=== PATIENT | female | born 1975 | race Caucasian/White ===

== ENCOUNTER 2024-10-14 01:17 | Inpatient (IN) | payer OTHER, SELFPAY ==
--- OUTSIDE RECORDS SUMMARY | 2024-10-08 17:29 | XMS_ITS | Encounter Summary ---
Author Organization [facility] Address [address] [place] [address] Phone Care Team Providers Care Game Master Name Role Phone Manda Dorantes MD, MPH Primary Care Provider [phone] Reason for Visit * Reason Comments Anxiety * Auth/Cert (Routine) Specialty Diagnoses / Procedures Referred By Contdiego t Referred To Contact Diagnoses Paranoia Referral ID Status Reason Start Date Expiration Date Visits Re quested Visits Authorized [id number] 1 1 Encounter Details Date Type Department Care Team (Late st Contact Info) Description 10/08/2024 5:29 PM EDT - 10/13/2024 11:00 PM EDT Hospital Encounter [facility] Emergency Dept [address] [place] [address] Lambert Mesa MD [address] [place] [address] [id number] [place] [address] [email or web address] Mcpherson MD [address] [facility], [id number] [place] [address] [email or web address] Ruthy Miller MD, MPH [address] [place] [address] [address] [place] [address] [email or web address] Zo Burden MD, MPH [address] [facility] [id number] [place] [address] [email or web address] Allison Castillo MD [address] [place] [address] [email or web address] Brendan Leonard MD [address] [place] [address] [email or web address] Nati Boss MD, PhD [address] [facility] [id number] [place] [phone] [email or web address] [email or web address] Emma Devries MD [address] [facility] [address] [place] [phone] [email or web address] Brendan Dc MD, RENATO [address] [facility] [address] [place] [address] [email or web address] Ban Zapata MD [address] [facility] [address] [place] [address] [email or web address] Akin Maher MD, MPH [address] [facility] [id number][address]1 [place] [address] [email or web address] Pavithra Saunders MD [address] [facility] [address] [place] [phone] [email or web address] Macie Mendez MD [address] [place] [address] [email or web address] Holly Montoya MD, PhD [address] [facility] [place], [place] [id number] [email or web address] Vern Rivas MD [address] [facility] [address] [place] [address] [email or web address] Discharge Disposition: Psychiatric Hospital Social History Tobacco Use Types Packs/Day Years Used Date Smoking Tobacco: Former Cigarettes 0.5 7 2 008 - 2014 Smokeless Tobacco: Former Quit: 2006 Alcohol Use Standard Drinks/Week Comments Yes 0 (1 standard drink = 0.6 oz pur e alcohol) rarely Child or Family Care Answer Date Record ed Do you have problems with on e of the following making it difficult for you to work, study, or receive health care? No 08/31/2023 Education Answer Date Recorded Are you interested in help w ith more adult education (for example, completing high school, GED, job training, learning the [place] language, technical skills, or developing parenting skills)? Yes 08/31/2023 Are you concerned about learning? Not on file 08/31/2023 Yes 08/31/2023 No 08/31/2023 Food Answer Date Recorded Within the past 6 months we worried whether our food would run out before we got money to buy more. Unable to assess 025 Within the past 6 months the food we bought just didn't last and we didn't have enough money to get more. Unable to assess 10/09/2024 Residential Stability Answer Date Recor ded What is your housing situation today? Unable to assess 10/09/2024 How many times have you moved in the past 12 wed ths? Unable to assess 10/09/2024 Paying for Meds Answer Date Recorded Do you have trouble paying for medicines? Unable to assess 10/09/2024 Paying Utility Bills Answer Date Record ed Do you have trouble paying y our heating or electricity bill? Unable to assess 10/09/2024 Transportation Answer Date Recorded Has the lack of transportati on kept you from medical appointments or from getting medications? Unable to assess 10/09/2024 Digital Access Answer Date Recorded No 10/09/2024 No 10/09/2024 Do you have reliable internet access at home? Un able to assess 10/09/2024 Do you have a device (e.g., phone, tablet, computer) with a working camera? Unable to assess 10/09/2024 Intimate Partner Violence Answer Date R ecorded Are you denied basic needs s uch as food, clothing, or medical care? Deferred 10/08/2024 In the past 12 months have y ou been in a relationship with a person who hurts, threatens, or tries to control you? Deferred 10/08/2024 Are you denied basic needs s uch as food, clothing, or medical care? Deferred 10/08/2024 In the past 12 months have y ou been in a relationship with a person who hurts, threatens, or tries to control you? Deferred 10/08/2024 Comments No Sex and Gender Information Value Date Recorded Sex Assigned at Female 12/23/2023 7:45 PM EST Legal Sex Female 5:22 PM EST Gender Identity Female 12/23/2023 7:45 PM EST Sexual Orientation Straight 12/23/2023 7: 45 PM EST documented as of this encounter Last Filed Vital Signs Vital Sign Reading Time Taken Comments Blood Pressure 109/67 10/13/2024 10:23 PM EDT Pulse 76 10/13/2024 10:23 PM EDT Temperature 36.4 C (97.6 F) 10/13/2024 10:23 PM EDT Respiratory Rate 16 10/13/2024 10:23 PM EDT Oxygen Saturation 100% 10/13/2024 10:23 PM EDT Inhaled Oxygen Concentration - - Weight - - Height - - Body Mass Index - - documented in this encounter Functional Status * Calculated C-SSRS Risk Score (Lifetime/Recent) Answer Date of Assessment Author No Risk Indicated 10/08/2024 5:20 PM EDT O'Emily brooks, Chata Alonso RN * [place] Suicide Severity Rating Scale (Screener/Recent Self-Report) Question Answer Date of Assessment Author 1. Wish to be (Past 1 Month) No 10/08/2024 5:20 PM EDT Nicki Fraire RN 2. Non-Specific Active Suicidal Thoughts (Past 1 Month) No 10/08/2024 5:20 PM EDT Nicki Fraire RN 6. Suicidal Behavior (Lifetime) No 10/08/2024 5:20 PM EDT Nicki Fraire RN documented as of this encounter Medications at Time of Discharge blood sugar diagnostic Strp strips 1 each by Miscellaneous route as needed. blood-glucose sensor (DEXCOM G7 SENSOR) Nancy 1 kit by Miscellaneous route as directed. Change every 10 days 9 each 3 02/17/2024 FLUoxetine (PROZAC) 20 MG capsule Take 1 capsule (20 mg total) by mouth daily. 60 capsule 1 10/05/2024 02/03/20 25 FLUoxetine (PROZAC) 40 MG capsule Take 1 capsule (40 mg total) by mouth daily. 90 capsule 1 10/05/2024 glucagon (GVOKE) 1 mg/0.2 mL subcutaneous auto-injectorIndi cations:Type 1 diabetes mellitus with other specified complication Inject 0.2 mL (1 mg total) under the skin once as needed for low blood sugar (provide value). 0.2 mL 2 02/04/2024 insulin aspart U-100 (NOVOLOG) 100 unit/mL injection vial Inject under the skin as needed. 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 90 tablet 3 05/17/2024 05/18/19 26 LORazepam (ATIVAN) 0.5 MG tablet Take 1 tablet (0.5 mg total) by mouth daily as needed for anxiety. 30 tablet 1 09/25/2024 12/25/19 25 REPATHA SYRINGE 140 mg/mL subcutaneous syringe INJECT 1ML UNDER THE SKIN EVERY 14 DAYS 6 mL 3 02/11/2024 semaglutide, weight loss, (WEGOVY) 1 mg/0.5 mL subcutaneous injectionIndicati ons:History of Joao-en-Y gastric bypass,History of obesity Inject 0.5 mL (1 mg total) under the skin once a week. Start after completing 4 weeks of Wegovy 0.5 mg 2 mL 5 04/21/2024 subcutaneous insulin pump (T:SLIM X2 CONTROL-IQ MISC) by Miscellaneous route. traZODone (DESYREL) 50 MG tabletIndications :insomnia associated with depression Take 1 tablet (50 mg total) by mouth nightly at bedtime. Indications: insomnia associated with depression 30 tablet 1 10/05/2024 documented as of this encounter Progress Notes Only the most recent of 5 notes is shown. * Rebeka Estrada, LYE PEEL OPERATOR - 10/13/2024 2:32 PM EDT Images from the original note were not included. ? [facility] Inpatient Diabetes Follow-up Note Subjective Pt feeling a little confused during rounding. Reports feeling hungrier lately (possibly due to being off Wegovy) but is not sure if she's eating more. , Adrian, at bedside. Objective Last vitals 36.1 ??C (97 ??F) P 87 BP 104/59 RR 18 SpO2 96 % FiO2 Physical Exam Constitutional: Comments: Laying in bed Pulmonary: Effort: Pulmonary effort is normal. Blood sugars Recent Labs Lab Units 10/13/24 1320 10/13/24 1311 10/13/24 1242 10/13/24 0858 10/13/24 0425 10/13/24 0153 10/12/24 2138 10/12/24 2118 10/12/24 2115 10/12/24 1837 10/09/24 1100 10/09/24 1013 10/09/24 0607 10/09/24 0517 10/08/24 2012 10/08/24 1756 GLUCOSE (POC) mg/dL 369* -- 68* 68* 149* 207* 137* 60* 60* 131* 131* < > -- < > -- < > -- GLUCOSE mg/dL -- 377* -- -- -- -- -- -- -- -- -- 352* -- 517* -- 125* < > = values in this interval not displayed. Assessment/Plan Endocrine Type 1 diabetes mellitus with other specified complication Assessment & Plan The Inpatient Diabetes Management Service has been consulted to assist with achieving glycemic control with hx of T1DM. Of note, she had an suicide attempt with 300 units of insulin during her previous [facility] admission in Jan 2024. 49 y.o. female originally presented to the ED with pmhx of T1DM on insulin pump, hypothyroidism, weight loss s/p gastric bypass, STEMI 2018 2 MILKA placed, ischemic cardiomyopathy EF 58%, MDD, MARTELL, andfactitious disorder during most recent inpatient psych admission who presents with gradual mental decline and feeling that she is not in control . Admitted for paranoia as she is uncertain if thingsare coincidences or what is reality. Her and her endorse that this is the similar trajectory that led to her previous psychiatric admission that led to a suicide attempt psych, HI, EtOH, drugs, auditory or visual loose shins. Denied physical symptoms. For her T1DM, she is followed at the [facility] with last visit with Dr. Timbo Calle on 10/07/24 as telemedicine visit. Home Rx: Wegovy 1 mg weekly - well tolerated Tandem insulin pump with Control IQ Basal 0.8 units/hr ISF: 60 CR: 10 BG target: 120 Pt's blood sugars low to 68 mg/dl this morning despite Lantus being lowered to 12 units last night.Elevated to 369 mg/dl after breakfast today possibly due to BG being taken right after eating. As she has overall been trending tightly, will plan to decrease her Lantus to 10 units and Lispro to 3 units with meals. Will titrate up if blood sugars start to go higher. Reviewed with pt and she is amenable to changes. We will continue to follow. Recommendations: Decrease Lantus to 10 units qhs, if NPO give 8 units. Please do not hold/delay basal insulin in pt with type 1 diabetes. Decrease Lispro to 3 units with meals. Nutritional insulin. Please allow patient to choose lower insulin dose if she is eating less (based on carbs content of the meal) HOLD if NPO. Lispro custom insulin sliding scale (0-6 units) starting when glucose at 180 mg/dL TID AC. DO NOT use at bedtime - glucose 180-240- 2 units, Glucose 241- 300- 3 units, Glucose 301- 350- 4 units, Glucose 351- 400-5 units, Glucose > 400- 6 units and page RC FSBG QID- AC, HS, and if any signs or symptoms of hypoglycemia KENNEDI Mendes For questions after 5pm or on weekends please contact Inpatient Diabetes Attending ([phone]) documented in this encounter Consult Notes Only the most recent of 2 notes is shown. * Kasia Perez CNP - 10/09/2024 9:16 AM EDTAssociated Order(s): IP CONSULT TO ENDOCRINOLOGY Images from the original note were not included. ? [facility] Inpatient Diabetes Consult Note Name: ??Ramses Rowe Location: ED [facility] Physician Requesting Consult: Service: APS; Attending: Ruthy Neal MD, MPH Endocrine Team: Nurse Practitioner: Kasia Perez NP Consult Date: ??10/09/2024 Time: 9:17 AM Reason for Consult: The Inpatient Diabetes Management Service has been consulted to assist with achieving glycemic control with hx of T1DM 49 y.o. female originally presented to the ED with pmhx of T1DM on insulin pump, hypothyroidism, weight loss s/p gastric bypass, STEMI 2018 2 MILKA placed, ischemic cardiomyopathy EF 58%, MDD, MARTELL, andfactitious disorder during most recent inpatient psych admission who presents with gradual mental decline and feeling that she is not in control . Admitted for paranoia as she is uncertain if thingsare coincidences or what is reality. Her and her endorse that this is the similar trajectory that led to her previous psychiatric admission that led to a suicide attempt psych, HI, EtOH, drugs, auditory or visual loose shins. Denied physical symptoms. For her T1DM, she is followed at the [facility] with last visit with Dr. Timbo Calle on 10/07/24 as telemedicine visit. Home Rx: Wegovy 1 mg weekly - well tolerated Tandem insulin pump with Control IQ Basal 0.8 units/hr ISF: 60 CR: 10 BG target: 120 Our team provided preliminary diabetes care plan yesterday afternoon to transition off insulin pumpfor psychiatric admission with recommendations as outlined below: Glargine 18 units every 24 hrs, overlap with pump for 2 hrs Lispro CHO ratio 1:15g Lispro SS correction:1:100 AC 150-250 +1 unit 251-351 +2 units Pt said that she feels a little nausea but tolerates food okay without v/d. She had a chicken sandwich last night and this morning breakfast consisted of banana , egg and bran muffin. ?Reviewed insulin pump data ?? Review Of Systems:? ?Endocrine: Denies polyuria, polydipsia, claudication, tingling/numbness of the hands and feet, blurry vision, frothy urine. ?General: Denies weight changes, fatigue, fevers, chills, or night sweats. CV: Denies chest pain or palpitations Pulm: Denies cough, SOB GI: Denies abdominal pain, v/d. + nausea : Denies dysuria MSK: Denies joint pains Neuro: Denies focal weakness, syncope Past Medical/Surgical History: Past Medical History: Diagnosis Date Cataract Diabetes mellitus History of myocardial infarct at age less than 60 years 07/15/2017 Hypothyroidism ?? Allergies:?? Allergen Reactions Penicillins Other (See Comments) rash; Selegiline Other (See Comments) skin irritation.; Sulfa (Sulfonamide Antibiotics) Other (See Comments) Rash; Sulfamethoxazole-Trimethoprim Other (See Comments) rash; Allergy entered as BACTRIM ?? Outpatient medications: No current facility-administered medications on file prior to encounter. Current Outpatient Medications on File Prior to Encounter Medication Sig Dispense Refill Last Dispense blood sugar diagnostic Strp strips 1 each by Miscellaneous route as needed. Unknown (patient-reported) blood-glucose sensor (MedaNextCOM G7 SENSOR) Nancy 1 kit by Miscellaneous route as directed. Change every10 days 9 each 3 Unknown (outside pharmacy) FLUoxetine (PROZAC) 20 MG capsule Take 1 capsule (20 mg total) by mouth daily. 60 capsule 1 Unknown(outside pharmacy) FLUoxetine (PROZAC) 40 MG capsule Take 1 capsule (40 mg total) by mouth daily. 90 capsule 1 Unknown(outside pharmacy) gabapentin (NEURONTIN) 100 MG capsule Take 1 capsule (100 mg total) by mouth 2 (two) times a day asneeded (Anxiety, Sleep). Can take 2 to 3 tabs if needed for a dose of 200-300 mg 30 capsule 2 Unknown (outside pharmacy) glucagon (GVOKE) 1 mg/0.2 mL subcutaneous auto-injector Inject 0.2 mL (1 mg total) under the skin once as needed for low blood sugar (provide value). 0.2 mL 2 Unknown (outside pharmacy) insulin aspart U-100 (NOVOLOG) 100 unit/mL injection vial Inject under the skin as needed. INJECT UP TO 150 UNITS DAILY OR DIRECTED VIA INSULIN PUMP Unknown (patient-reported) levothyroxine (SYNTHROID, LEVOTHROID) 150 MCG tablet Take 1 tablet (150 mcg total) by mouth every morning. 90 tablet 3 Unknown (outside pharmacy) LORazepam (ATIVAN) 0.5 MG tablet Take 1 tablet (0.5 mg total) by mouth daily as needed for anxiety.30 tablet 1 Unknown (outside pharmacy) REPATHA SYRINGE 140 mg/mL subcutaneous syringe INJECT 1ML UNDER THE SKIN EVERY 14 DAYS 6 mL 3 Unknown (outside pharmacy) semaglutide, weight loss, (WEGOVY) 1 mg/0.5 mL subcutaneous injection Inject 0.5 mL (1 mg total) under the skin once a week. Start after completing 4 weeks of Wegovy 0.5 mg 2 mL 5 Unknown (outside pharmacy) subcutaneous insulin pump (T:SLIM X2 CONTROL-IQ MISC) by Miscellaneous route. Unknown (patient-reported) traZODone (DESYREL) 50 MG tablet Take 1 tablet (50 mg total) by mouth nightly at bedtime. Indications: insomnia associated with depression 30 tablet 1 Unknown (outside pharmacy) [DISCONTINUED] FLUoxetine (PROZAC) 40 MG capsule TAKE 2 CAPSULES BY MOUTH DAILY 180 capsule 2 Unknown (outside pharmacy) [DISCONTINUED] LORazepam (ATIVAN) 0.5 MG tablet Take 1 tablet (0.5 mg total) by mouth daily as needed for anxiety. 30 tablet 1 Unknown (outside pharmacy) Family History: Family History Problem Relation Age of Onset Anxiety disorder Mother Anxiety disorder Sister Cataracts Maternal Grandmother Social History: Social History Tobacco Use Smoking status: Former Current packs/day: 0.00 Average packs/day: 0.5 packs/day for 7.0 years (3.5 ttl pk-yrs) Types: Cigarettes Start date: 2007 Quit date: 2014 Years since quittin.6 Smokeless tobacco: Former Quit date: 2006 Substance Use Topics Alcohol use: Yes Comment: rarely Drug use: Never Data/Results BMP: Lab Results Component Value Date/Time NA 132 (L) 10/09/2024 1013 K 4.3 10/09/2024 1013 CL 99 10/09/2024 1013 CO2 24 10/09/2024 1013 BUN 13 10/09/2024 1013 CRE 0.85 10/09/2024 1013 CA 8.0 (L) 10/09/2024 1013 GLU 352 (H) 10/09/2024 1013 GLUPOC 376 (*) 10/09/2024 1102 GLUPOC 376 (H) 10/09/2024 1100 Review of recent fingerstick BG values: Recent Labs Lab Units 10/09/24 0817 10/09/24 0814 10/09/24 0607 10/09/24 0517 10/09/24 0502 10/08/24 2137 10/08/24 2136 10/08/24201110/08/24 1756 GLUCOSE (POC) mg/dL 311* 311* 430* -- 461* 98 98 < > -- GLUCOSE mg/dL -- -- -- 517* -- -- -- -- 125* < > = values in this interval not displayed. Lab Results Component Value Date GHBA1C 7.0 (H) 08/21/2024 GHBA1C 7.6 (H) 05/16/2024 GHBA1C 8.9 (H) 04/10/2024 Lab Results Component Value Date GLU 517 (HH) 10/09/2024 CRE 0.89 10/09/2024 LDL 35 (L) 08/21/2024 GRMALB 0.6 12/21/2023 MALBCRE 4.1 12/21/2023 Exam Last vitals 36.9 ??C (98.5 ??F) P 76 BP 112/55 RR 16 SpO2 96 % FiO2 Physical Exam Answered questions appropriately. In nad. Accompany by her . Assessment: The Inpatient Diabetes Management Service has been consulted to assist with achieving glycemic control with hx of T1DM. Of note, she had an suicide attempt with 300 units of insulin during her previous [facility] admission in Jan 2024. 49 y.o. female originally presented to the ED with pmhx of T1DM on insulin pump, hypothyroidism, weight loss s/p gastric bypass, STEMI 2018 2 MILKA placed, ischemic cardiomyopathy EF 58%, MDD, MARTELL, andfactitious disorder during most recent inpatient psych admission who presents with gradual mental decline and feeling that she is not in control . Admitted for paranoia as she is uncertain if thingsare coincidences or what is reality. Her and her endorse that this is the similar trajectory that led to her previous psychiatric admission that led to a suicide attempt psych, HI, EtOH, drugs, auditory or visual loose shins. Denied physical symptoms. For her T1DM, she is followed at the [facility] with last visit with Dr. Timbo Calle on 10/07/24 as telemedicine visit. Home Rx: Wegovy 1 mg weekly - well tolerated Tandem insulin pump with Control IQ Basal 0.8 units/hr ISF: 60 CR: 10 BG target: 120 Our team provided preliminary diabetes care plan yesterday afternoon to transition off insulin pumpfor psychiatric admission with recommendations as outlined below: Glargine 18 units every 24 hrs, overlap with pump for 2 hrs Lispro CHO ratio 1:15g Lispro SS correction:1:100 AC 150-250 +1 unit 251-351 +2 units I met with patient and together per patient's request in interview room of ED. Pt said that she feels a little nausea but tolerates food okay without v/d. Pt does not think she have the mental capacity at this time to always count carbs before she eats and ask for a specific insulin dose when she eats. She knows and agrees that she will eat at least 30 gram of CHO with each meal. Her glucose radha from 98 to 461 this morning (after she ate dinner - chicken sandwich, without any Lispro dose to cover). Today so far glucose levels- 461- 430-311- 376 and she got Lispro 5 unitstoday. She had banana, bran muffin and egg this morning (received lispro 2 units) We recommend to start a low dose Lispro prandial insulin dose + Lispro insulin sliding scale as outlined below and continue daily Lantus 18 units qhs Recommendations: Lantus 18 units qhs, if NPO give 14 units. Please do not hold/delay basal insulin in pt with type 1diabetes. Lispro 3 units with meals. Nutritional insulin. Please allow patient to choose lower insulin dose if she is eating less (based on carbs content of the meal) HOLD if NPO. Lispro custom insulin sliding scale (0-6 units) starting when glucose at 180 mg/dL TID AC. DO NOT use at bedtime - glucose 180-240- 2 units, Glucose 241- 300- 3 units, Glucose 301- 350- 4 units, Glucose 351- 400-5 units, Glucose > 400- 6 units and page RC FSBG QID- AC, HS, and if any signs or symptoms of hypoglycemia ?? Thank you for inviting us to participate in the care of this patient. Please page me, or the on-call Endocrine Attending ([phone]) with any questions or concerns. Kasia Perez CNP [facility] Inpatient Diabetes Management Service Inpatient Diabetes Attending [id number] I personally spent a total of 75 minutes on care for this patient on the date of the encounter. This includes gmxc-qa-qbrv time during the visit as well as non gjtv-hi-xhzm time spent on chart review, documentation, and care coordination. Quality Clinical Documentation: documented in this encounter ED Notes * Cesilia Alejandro CNP - 10/13/2024 9:14 AM EDT ACUTE PSYCHIATRY SERVICE OBSERVATION PROGRESS NOTE PATIENT NAME: RAMSES ROWE SERVICE DATE: 10/13/2024 SERVICE TIME: 9:14 AM Chief Complaint Patient presents with Anxiety Interval History: For complete details, please see the initial consultation note. Patient is a 49 y.o. female with a PPHx notable for MDD, MARTELL, three prior psychiatric hospitalizations (last David 11 12/2023), two prior suicide attempts (via overdose, both requiring medical hospitalization), PMHx notable for T1DM on insulin pump, Hypothyroidism, prior STEMI with LAD (2017), GERD, Obesity s/p gastric bypass now on GLP-1; who presents to the [facility] ED with her with increased anxiety and racing thoughts. APS is consulted for safety assessment and disposition planning. The interval events since the last note are as follows: -- Patient has been in the ED for 114 hours -- No acute events overnight. -- VSS. -- Remains medication compliant. -- Endocrinology following for recommendations regarding insulin irequirements. This morning patient is seen in an [facility] bay. Reports feeling confused and anxious this morning whilelook at Facebook, denies there is any specific content causing the confusion. A&O to self, hospital, month, and year. Denies SI/HI/AH/VH. Patient continues to request admission to [place] [address] for ECT treatment. Discussed expanded search to alternative facilities. Medication: Current Facility-Administered Medications Medication aluminum-magnesium hydroxide-simethicone (MAALOX) 200-200-20 mg/5 mL oral suspension 30 mL dextrose (D50W) 50 % syringe 0-25 g dextrose (D50W) 50 % syringe 12.5-25 g FLUoxetine (PROzac) capsule 60 mg hydrOXYzine (ATARAX) tablet 25 mg insulin glargine (LANTUS) subcutaneous injection 15 Units insulin lispro (ADMELOG, HumaLOG) subcutaneous injection 0-6 Units insulin lispro (ADMELOG, HumaLOG) subcutaneous injection 5 Units LORazepam (ATIVAN) tablet 1 mg melatonin tablet 10 mg ondansetron (PF) (ZOFRAN) injection 4 mg ondansetron (ZOFRAN-ODT) disintegrating tablet 4 mg polyethylene glycol packet polyethylene glycol packet traZODone (DESYREL) tablet 50 mg Current Outpatient Medications Medication Sig blood sugar diagnostic Strp strips 1 each by Miscellaneous route as needed. blood-glucose sensor (MedaNextCOM G7 SENSOR) Nancy 1 kit by Miscellaneous route as directed. Change every10 days FLUoxetine (PROZAC) 20 MG capsule Take 1 capsule (20 mg total) by mouth daily. FLUoxetine (PROZAC) 40 MG capsule Take 1 capsule (40 mg total) by mouth daily. gabapentin (NEURONTIN) 100 MG capsule Take 1 capsule (100 mg total) by mouth 2 (two) times a day asneeded (Anxiety, Sleep). Can take 2 to 3 tabs if needed for a dose of 200-300 mg glucagon (GVOKE) 1 mg/0.2 mL subcutaneous auto-injector Inject 0.2 mL (1 mg total) under the skin once as needed for low blood sugar (provide value). insulin aspart U-100 (NOVOLOG) 100 unit/mL injection vial Inject under the skin as needed. INJECT UP TO 150 UNITS DAILY OR DIRECTED VIA INSULIN PUMP levothyroxine (SYNTHROID, LEVOTHROID) 150 MCG tablet Take 1 tablet (150 mcg total) by mouth every morning. LORazepam (ATIVAN) 0.5 MG tablet Take 1 tablet (0.5 mg total) by mouth daily as needed for anxiety. REPATHA SYRINGE 140 mg/mL subcutaneous syringe INJECT 1ML UNDER THE SKIN EVERY 14 DAYS semaglutide, weight loss, (WEGOVY) 1 mg/0.5 mL subcutaneous injection Inject 0.5 mL (1 mg total) under the skin once a week. Start after completing 4 weeks of Wegovy 0.5 mg subcutaneous insulin pump (T:SLIM X2 CONTROL-IQ MISC) by Miscellaneous route. traZODone (DESYREL) 50 MG tablet Take 1 tablet (50 mg total) by mouth nightly at bedtime. Indications: insomnia associated with depression Allergies: Penicillins, Selegiline, Sulfa (sulfonamide antibiotics), and Sulfamethoxazole-trimethoprim Vital Signs: BP 111/61 Pulse 78 Temp 36.5 ??C (97.7 ??F) (Temporal) Resp 18 SpO2 98% Physical Exam Musculoskeletal: moves all extremities; no abnormal movements Station/Gait: normal Mental Status Exam Appearance: disheveled Behavior: cooperative, eye contact good, and oddly related Psychomotor Activity: normal Speech: regular volume, normal tone, and latent Mood: anxious Affect: mood congruent Thought Process: slowed and perseverative Associations: no loosening of associations Thought Content: no delusions elicited Suicidal/Homicidal Ideation: no suicidal ideation and no homicidal ideation Perceptions/Experiences: no hallucinations Insight: fair Judgment: limited Cognitive Exam Orientation/Sensorium: oriented x 3 Memory: immediate recall intact. Attention/Concentration: intact to observation Abstract Reasoning: intact to observation Fund of Knowledge: average Language: normal comprehension Labs/Imaging: Labs Reviewed CBC AND DIFFERENTIAL - Abnormal; Notable for the following components: Result Value RBC 3.92 (*) MCH 31.6 (*) All other components within normal limits BASIC METABOLIC PANEL - Abnormal; Notable for the following components: GLUCOSE 125 (*) All other components within normal limits URINALYSIS W/REFLEX URINE CULTURE - Abnormal; Notable for the following components: GLUCOSE 3+ (*) KETONES 1+ (*) All other components within normal limits KETONE BODIES, SERUM - Abnormal; Notable for the following components: BETA HYDROXYBUTYRATE 0.8 (*) All other components within normal limits BASIC METABOLIC PANEL - Abnormal; Notable for the following components: SODIUM 131 (*) CHLORIDE 97 (*) GLUCOSE 517 (*) CALCIUM 8.0 (*) All other components within normal limits BASIC METABOLIC PANEL - Abnormal; Notable for the following components: SODIUM 132 (*) GLUCOSE 352 (*) CALCIUM 8.0 (*) All other components within normal limits URINALYSIS W/REFLEX URINE CULTURE - Abnormal; Notable for the following components: COLOR COLORLESS (*) GLUCOSE 3+ (*) All other components within normal limits POCT GLUCOSE - Abnormal; Notable for the following components: Glucose 311 (*) All other components within normal limits POCT GLUCOSE - Abnormal; Notable for the following components: Glucose 376 (*) All other components within normal limits POCT GLUCOSE - Abnormal; Notable for the following components: Glucose 139 (*) All other components within normal limits POCT GLUCOSE - Abnormal; Notable for the following components: Glucose, POCT 461 (*) All other components within normal limits POCT GLUCOSE - Abnormal; Notable for the following components: Glucose 206 (*) All other components within normal limits POCT GLUCOSE - Abnormal; Notable for the following components: Glucose, POCT 430 (*) All other components within normal limits POCT GLUCOSE - Abnormal; Notable for the following components: Glucose, POCT 311 (*) All other components within normal limits POCT GLUCOSE - Abnormal; Notable for the following components: Glucose 243 (*) All other components within normal limits POCT GLUCOSE - Abnormal; Notable for the following components: Glucose, POCT 376 (*) All other components within normal limits POCT GLUCOSE - Abnormal; Notable for the following components: Glucose, POCT 338 (*) All other components within normal limits POCT GLUCOSE - Abnormal; Notable for the following components: Glucose, POCT 465 (*) All other components within normal limits POCT GLUCOSE - Abnormal; Notable for the following components: Glucose, POCT 379 (*) All other components within normal limits POCT GLUCOSE - Abnormal; Notable for the following components: Glucose 108 (*) All other components within normal limits POCT GLUCOSE - Abnormal; Notable for the following components: Glucose, POCT 413 (*) All other components within normal limits POCT GLUCOSE - Abnormal; Notable for the following components: Glucose 303 (*) All other components within normal limits POCT GLUCOSE - Abnormal; Notable for the following components: Glucose 154 (*) All other components within normal limits POCT GLUCOSE - Abnormal; Notable for the following components: Glucose, POCT 139 (*) All other components within normal limits POCT GLUCOSE - Abnormal; Notable for the following components: Glucose, POCT 206 (*) All other components within normal limits POCT GLUCOSE - Abnormal; Notable for the following components: Glucose, POCT 330 (*) All other components within normal limits POCT GLUCOSE - Abnormal; Notable for the following components: Glucose, POCT 243 (*) All other components within normal limits POCT GLUCOSE - Abnormal; Notable for the following components: Glucose, POCT 113 (*) All other components within normal limits POCT GLUCOSE - Abnormal; Notable for the following components: Glucose, POCT 240 (*) All other components within normal limits POCT GLUCOSE - Abnormal; Notable for the following components: Glucose 140 (*) All other components within normal limits POCT GLUCOSE - Abnormal; Notable for the following components: Glucose 266 (*) All other components within normal limits POCT GLUCOSE - Abnormal; Notable for the following components: Glucose, POCT 303 (*) All other components within normal limits POCT GLUCOSE - Abnormal; Notable for the following components: Glucose, POCT 154 (*) All other components within normal limits POCT GLUCOSE - Abnormal; Notable for the following components: Glucose, POCT 140 (*) All other components within normal limits POCT GLUCOSE - Abnormal; Notable for the following components: Glucose, POCT 266 (*) All other components within normal limits POCT GLUCOSE - Abnormal; Notable for the following components: Glucose 131 (*) All other components within normal limits POCT GLUCOSE - Abnormal; Notable for the following components: Glucose, POCT 58 (*) All other components within normal limits POCT GLUCOSE - Abnormal; Notable for the following components: Glucose 60 (*) All other components within normal limits POCT GLUCOSE - Abnormal; Notable for the following components: Glucose, POCT 125 (*) All other components within normal limits POCT GLUCOSE - Abnormal; Notable for the following components: Glucose, POCT 262 (*) All other components within normal limits POCT GLUCOSE - Abnormal; Notable for the following components: Glucose, POCT 135 (*) All other components within normal limits POCT GLUCOSE - Abnormal; Notable for the following components: Glucose, POCT 131 (*) All other components within normal limits POCT GLUCOSE - Abnormal; Notable for the following components: Glucose, POCT 60 (*) All other components within normal limits POCT GLUCOSE - Abnormal; Notable for the following components: Glucose, POCT 137 (*) All other components within normal limits POCT GLUCOSE - Abnormal; Notable for the following components: Glucose, POCT 207 (*) All other components within normal limits POCT GLUCOSE - Abnormal; Notable for the following components: Glucose, POCT 149 (*) All other components within normal limits POCT GLUCOSE - Normal LFTS (HEPATIC PANEL) ETHANOL, BLOOD TOXICOLOGY SCREEN, URINE HCG, URINE KETONE BODIES, SERUM POCT GLUCOSE POCT GLUCOSE POCT GLUCOSE POCT GLUCOSE POCT GLUCOSE POCT GLUCOSE POCT GLUCOSE POCT GLUCOSE POCT GLUCOSE POCT GLUCOSE POCT GLUCOSE POCT GLUCOSE POCT GLUCOSE No orders to display Overall Suicide Risk Assessment (without further treatment): Suicide risk assessment (click to document) Suicide Risk Assessment Did the patient endorse recent thoughts of harm to self or others during this encounter?: No Suicidal thoughts: None Self-harm thoughts: None Homicidal thoughts: None Violent/destructive thoughts: None Additional details: concern for SA ~2 weeks ago, overinjection of insulin requring glycogen from at home Prior suicide behaviors or attempts: (!) Yes Additional details (prior suicide behaviors or attempts): 2011 suicide attempt by overdose requiring ICU stay; 2011 suicide attempt by overuse of insulin; 2023 multiple suicide attempts and gestures Static risk factors: H/o prior suicide attempts;Chronic medical illness;Chronic/severe mental illness Modifiable risk factors: Anxiety and/or panic;Impulsivity;Limited coping skills Protective factors: Supportive family/caregiver;Resilience What is the patient's current, overall, acute risk of harm to self and/or others?: (!) Moderate Actions taken to minimize risk of harm to self and others: Safety orders;Continue to monitor;Referred for evaluation for a higher level of care;Filed a Section 12(a) (10/08/242122) Impression/Plan (including standing medication and prn plan): Patient is a 49 y.o. female with a PPHx notable for MDD, MARTELL, three prior psychiatric hospitalizations (last [facility] 11 12/2023), two prior suicide attempts (via overdose, both requiring medical hospitalization), PMHx notable for T1DM on insulin pump, Hypothyroidism, prior STEMI with LAD (2018), GERD, Obesity s/p gastric bypass now on GLP-1; who presents to the [facility] ED with her with increased anxiety and racing thoughts. APS is consulted for safety assessment and disposition planning. Today's presentation notable for ongoing anxiety. Denies suicidal thoughts today. On exam, patient has latent response to questions and endorses confusion, similar presentation yesterday per chart review. Alert and oriented to person, place, month and year. Overall presentation is consistent with adecompensation of patients known mood disorder. Patient meets Section 12 criteria based on recent suicidal gestures and impulsivity as well as concerning collateral from on presentation. Planis for IPLOC. [x] Moderate (Con): This patient is deemed to be at substantial risk if discharged and requires further psychiatric evaluation and treatment. At present, however, the patient feels safe in the hospital, and has the capacity to let staff know of any increase in suicidal thoughts/plan/intent. The patient is assessed NOT to be at high risk for imminent self-harm in a treatment setting, with the safety and containment of the Emergency Department. The patient will receive constant observation in addition to standard safety precautions. Diagnosis: MDD MARTELL Cesilia Alejandro CNP Ramses Rowe received psychiatric/crisis management services with assessment, stabilization, and disposition planning on 10/13/24. This included an updated mental status exam, and any necessary updates to the diagnostic evaluation, assessment of substance use, formulation, safety and treatment plans. The patient did not require 1:1 observation to maintain safety in this environment of care. Cosigned by Brendan Leonard MD at 10/13/2024 12:37 PM EDT Associated attestation - Brendan Leonard MD - 10/13/2024 12:37 PM EDT ACUTE PSYCHIATRY SERVICE ATTENDING NOTE PATIENT NAME: RAMSES ROWE SERVICE DATE: 10/13/2024 SERVICE TIME: 12:36 PM I have personally seen and examined the patient and reviewed the AIRCRAFT ORDNANCE TECHNICIAN's findings and plan. I performed a substantive portion of the visit including all aspects of the medical decision making as documented. As necessary, I have appended the note with my suggestions, comments or clarification to the AIRCRAFT ORDNANCE TECHNICIAN's findings and plan in the note above. Brendan Leonard MD * Lenore Lerma, PMHNP-BC - 10/11/2024 7:30 AM EDT ACUTE PSYCHIATRY SERVICE PROGRESS NOTE PATIENT NAME: RAMSES ROWE SERVICE DATE: 10/11/2024 SERVICE TIME: 7:30 AM History of Present Illness/Interval History: For complete details, please see the initial consultation note. Patient is a 49 y.o. female with a PPHx notable for MDD, MARTELL, three prior psychiatric hospitalizations (last [facility] 12/2023), two prior suicide attempts (via overdose, both requiring medical hospitalization), PMHx notable for T1DM on insulin pump, Hypothyroidism, prior STEMI with LAD (2017), GERD, Obesity s/p gastric bypass now on GLP-1; who presents to the [facility] ED with her with increased anxiety and racing thoughts. APS is consulted for safety assessment and disposition planning. The interval events since the last note are as follows: - Patient has been boarding in the ED for 64 hours - VSS - No acute events overnight - Endocrinology continues to follow patient for insulin management, blood sugars have improved. This morning patient is seen in an APS bay. Sleep has improved, able to sleep last night. Anxiety is improved but states I'm anxious because I'm less anxious. Denies suicidal thoughts today. Physically feeling ok, able to eat and drink was observed eating breakfast this morning. coming intoday. No questions at this time. Medication: Current Facility-Administered Medications Medication dextrose (D50W) 50 % syringe 0-25 g dextrose (D50W) 50 % syringe 12.5-25 g FLUoxetine (PROzac) capsule 60 mg hydrOXYzine (ATARAX) tablet 25 mg insulin glargine (LANTUS) subcutaneous injection 15 Units insulin lispro (ADMELOG, HumaLOG) subcutaneous injection 0-6 Units insulin lispro (ADMELOG, HumaLOG) subcutaneous injection 5 Units LORazepam (ATIVAN) tablet 1 mg melatonin tablet 10 mg ondansetron (PF) (ZOFRAN) injection 4 mg ondansetron (ZOFRAN-ODT) disintegrating tablet 4 mg polyethylene glycol packet traZODone (DESYREL) tablet 50 mg Current Outpatient Medications Medication Sig blood sugar diagnostic Strp strips 1 each by Miscellaneous route as needed. blood-glucose sensor (DEXCOM G7 SENSOR) Nancy 1 kit by Miscellaneous route as directed. Change every10 days FLUoxetine (PROZAC) 20 MG capsule Take 1 capsule (20 mg total) by mouth daily. FLUoxetine (PROZAC) 40 MG capsule Take 1 capsule (40 mg total) by mouth daily. gabapentin (NEURONTIN) 100 MG capsule Take 1 capsule (100 mg total) by mouth 2 (two) times a day asneeded (Anxiety, Sleep). Can take 2 to 3 tabs if needed for a dose of 200-300 mg glucagon (GVOKE) 1 mg/0.2 mL subcutaneous auto-injector Inject 0.2 mL (1 mg total) under the skin once as needed for low blood sugar (provide value). insulin aspart U-100 (NOVOLOG) 100 unit/mL injection vial Inject under the skin as needed. INJECT UP TO 150 UNITS DAILY OR DIRECTED VIA INSULIN PUMP levothyroxine (SYNTHROID, LEVOTHROID) 150 MCG tablet Take 1 tablet (150 mcg total) by mouth every morning. LORazepam (ATIVAN) 0.5 MG tablet Take 1 tablet (0.5 mg total) by mouth daily as needed for anxiety. REPATHA SYRINGE 140 mg/mL subcutaneous syringe INJECT 1ML UNDER THE SKIN EVERY 14 DAYS semaglutide, weight loss, (WEGOVY) 1 mg/0.5 mL subcutaneous injection Inject 0.5 mL (1 mg total) under the skin once a week. Start after completing 4 weeks of Wegovy 0.5 mg subcutaneous insulin pump (T:SLIM X2 CONTROL-IQ [facility]) by Miscellaneous route. traZODone (DESYREL) 50 MG tablet Take 1 tablet (50 mg total) by mouth nightly at bedtime. Indications: insomnia associated with depression Allergies: Penicillins, Selegiline, Sulfa (sulfonamide antibiotics), and Sulfamethoxazole-trimethoprim Vital Signs: BP 119/56 Pulse 74 Temp 35.9 ??C (96.6 ??F) (Temporal) Resp 16 SpO2 100% Physical Exam Musculoskeletal: moves all extremities; no abnormal movements Station/Gait: normal Mental Status Exam Appearance: well groomed and appropriately dressed Behavior: cooperative and pleasant Psychomotor Activity: normal Speech: regular rate, regular rhythm, regular volume, and normal tone Mood: anxious Affect: full range Thought Process: linear Associations: no loosening of associations Thought Content: paranoid ideation Suicidal/Homicidal Ideation: no homicidal ideation and suicidal ideation with intent and plan Perceptions/Experiences: no hallucinations Insight: fair Judgment: limited Cognitive Exam Orientation/Sensorium: oriented x 3 Memory: immediate recall intact. Attention/Concentration: intact to observation Abstract Reasoning: intact to observation Fund of Knowledge: average Language: normal comprehension Labs/Imaging: Labs Reviewed CBC AND DIFFERENTIAL - Abnormal; Notable for the following components: Result Value RBC 3.92 (*) MCH 31.6 (*) All other components within normal limits BASIC METABOLIC PANEL - Abnormal; Notable for the following components: GLUCOSE 125 (*) All other components within normal limits URINALYSIS W/REFLEX URINE CULTURE - Abnormal; Notable for the following components: GLUCOSE 3+ (*) KETONES 1+ (*) All other components within normal limits KETONE BODIES, SERUM - Abnormal; Notable for the following components: BETA HYDROXYBUTYRATE 0.8 (*) All other components within normal limits BASIC METABOLIC PANEL - Abnormal; Notable for the following components: SODIUM 131 (*) CHLORIDE 97 (*) GLUCOSE 517 (*) CALCIUM 8.0 (*) All other components within normal limits BASIC METABOLIC PANEL - Abnormal; Notable for the following components: SODIUM 132 (*) GLUCOSE 352 (*) CALCIUM 8.0 (*) All other components within normal limits URINALYSIS W/REFLEX URINE CULTURE - Abnormal; Notable for the following components: COLOR COLORLESS (*) GLUCOSE 3+ (*) All other components within normal limits POCT GLUCOSE - Abnormal; Notable for the following components: Glucose 311 (*) All other components within normal limits POCT GLUCOSE - Abnormal; Notable for the following components: Glucose 376 (*) All other components within normal limits POCT GLUCOSE - Abnormal; Notable for the following components: Glucose 139 (*) All other components within normal limits POCT GLUCOSE - Abnormal; Notable for the following components: Glucose, POCT 461 (*) All other components within normal limits POCT GLUCOSE - Abnormal; Notable for the following components: Glucose 206 (*) All other components within normal limits POCT GLUCOSE - Abnormal; Notable for the following components: Glucose, POCT 430 (*) All other components within normal limits POCT GLUCOSE - Abnormal; Notable for the following components: Glucose, POCT 311 (*) All other components within normal limits POCT GLUCOSE - Abnormal; Notable for the following components: Glucose 243 (*) All other components within normal limits POCT GLUCOSE - Abnormal; Notable for the following components: Glucose, POCT 376 (*) All other components within normal limits POCT GLUCOSE - Abnormal; Notable for the following components: Glucose, POCT 338 (*) All other components within normal limits POCT GLUCOSE - Abnormal; Notable for the following components: Glucose, POCT 465 (*) All other components within normal limits POCT GLUCOSE - Abnormal; Notable for the following components: Glucose, POCT 379 (*) All other components within normal limits POCT GLUCOSE - Abnormal; Notable for the following components: Glucose, POCT 413 (*) All other components within normal limits POCT GLUCOSE - Abnormal; Notable for the following components: Glucose, POCT 139 (*) All other components within normal limits POCT GLUCOSE - Abnormal; Notable for the following components: Glucose, POCT 206 (*) All other components within normal limits POCT GLUCOSE - Abnormal; Notable for the following components: Glucose, POCT 330 (*) All other components within normal limits POCT GLUCOSE - Abnormal; Notable for the following components: Glucose, POCT 243 (*) All other components within normal limits POCT GLUCOSE - Abnormal; Notable for the following components: Glucose, POCT 113 (*) All other components within normal limits POCT GLUCOSE - Abnormal; Notable for the following components: Glucose, POCT 240 (*) All other components within normal limits POCT GLUCOSE - Normal LFTS (HEPATIC PANEL) ETHANOL, BLOOD TOXICOLOGY SCREEN, URINE HCG, URINE KETONE BODIES, SERUM POCT GLUCOSE POCT GLUCOSE POCT GLUCOSE POCT GLUCOSE POCT GLUCOSE POCT GLUCOSE POCT GLUCOSE POCT GLUCOSE POCT GLUCOSE POCT GLUCOSE No orders to display Overall Suicide Risk Assessment (without further treatment): Suicide risk assessment (click to document) Suicide Risk Assessment Did the patient endorse recent thoughts of harm to self or others during this encounter?: No Suicidal thoughts: None Self-harm thoughts: None Homicidal thoughts: None Violent/destructive thoughts: None Additional details: concern for SA ~2 weeks ago, overinjection of insulin requring glycogen from at home Prior suicide behaviors or attempts: (!) Yes Additional details (prior suicide behaviors or attempts): 2011 suicide attempt by overdose requiring ICU stay; 2011 suicide attempt by overuse of insulin; 2023 multiple suicide attempts and gestures Static risk factors: H/o prior suicide attempts;Chronic medical illness;Chronic/severe mental illness Modifiable risk factors: Anxiety and/or panic;Impulsivity;Limited coping skills Protective factors: Supportive family/caregiver;Resilience What is the patient's current, overall, acute risk of harm to self and/or others?: (!) Moderate Actions taken to minimize risk of harm to self and others: Safety orders;Continue to monitor;Referred for evaluation for a higher level of care;Filed a Section 12(a) (10/08/242122) Impression/Plan (including standing medication and prn plan): Patient is a 49 y.o. female with a PPHx notable for MDD, MARTELL, three prior psychiatric hospitalizations (last [facility] 11 12/2023), two prior suicide attempts (via overdose, both requiring medical hospitalization), PMHx notable for T1DM on insulin pump, Hypothyroidism, prior STEMI with LAD (2017), GERD, Obesity s/p gastric bypass now on GLP-1; who presents to the [facility] ED with her with increased anxiety, racing thoughts, and SI. APS is consulted for safety assessment and disposition planning. Today's presentation notable for anxiety that is improving, and subsiding suicidal thoughts. Overall presentation is consistent with MDD, MARTELL. Patient meets Section 12 criteria based on recent suicidal gestures, impulsivity, and inability to effectively keep self self. Plan is for IPLOC. Medicationchanges for today include none. [x] Moderate (Con): This patient is deemed to be at substantial risk if discharged and requires further psychiatric evaluation and treatment. At present, however, the patient feels safe in the hospital, and has the capacity to let staff know of any increase in suicidal thoughts/plan/intent. The patient is assessed NOT to be at high risk for imminent self-harm in a treatment setting, with the safety and containment of the Emergency Department. The patient will receive constant observation in addition to standard safety precautions. Lenore Lerma, [facility]- Ramses Rowe received psychiatric/crisis management services with assessment, stabilization, and disposition planning on 10/11/24. This included an updated mental status exam, and any necessary updates to the diagnostic evaluation, assessment of substance use, formulation, safety and treatment plans. The patient did not require 1:1 observation to maintain safety in this environment of care. Cosigned by Ban Zapata MD at 10/11/2024 11:16 AM EDT Associated attestation - Ban Zapata MD - 10/11/2024 11:16 AM EDT I have personally seen and examined the patient and reviewed the AIRCRAFT ORDNANCE TECHNICIAN's findings and plan. As necessary, I have appended the note with my suggestions, comments or clarification to the AIRCRAFT ORDNANCE TECHNICIAN's findings andplan in the note above. Ban Zapata MD * Cesilia Alejandro CNP - 10/10/2024 9:19 AM EDT ACUTE PSYCHIATRY SERVICE PROGRESS NOTE PATIENT NAME: RAMSES ROWE SERVICE DATE: 10/10/2024 SERVICE TIME: 9:19 AM History of Present Illness/Interval History: For complete details, please see the initial consultation note. Patient is a 49 y.o. female with a PPHx notable for MDD, MARTELL, three prior psychiatric hospitalizations (last [facility] 12/2023), two prior suicide attempts (via overdose, both requiring medical hospitalization), PMHx notable for T1DM on insulin pump, Hypothyroidism, prior STEMI with LAD (2017), GERD, Obesity s/p gastric bypass now on GLP-1; who presents to the [facility] ED with her with increased anxiety and racing thoughts. APS is consulted for safety assessment and disposition planning. The interval events since the last note are as follows: - Patient has been boarding in the ED for 40 hours - VSS - No acute events overnight - Endocrinology saw patient this morning, please see their note for updated recs This morning patient is seen in an APS bay. Feeling anxious but was able to get better sleep last night. Reports pressure and itchiness with urination, requesting a test for a UTI. Does have some nausea with drinking water but able to tolerate breakfast. Denies SI, HI, or violent ideations. Would like to do ECT during her inpatient stay and is also asking about changing her SSRI. Requested by updated with the plan. Medication: Current Facility-Administered Medications Medication dextrose (D50W) 50 % syringe 0-25 g dextrose (D50W) 50 % syringe 12.5-25 g FLUoxetine (PROzac) capsule 60 mg hydrOXYzine (ATARAX) tablet 25 mg insulin glargine (LANTUS) subcutaneous injection 18 Units insulin lispro (ADMELOG, HumaLOG) subcutaneous injection 0-6 Units insulin lispro (ADMELOG, HumaLOG) subcutaneous injection 6 Units LORazepam (ATIVAN) tablet 1 mg melatonin tablet 10 mg ondansetron (PF) (ZOFRAN) injection 4 mg polyethylene glycol packet traZODone (DESYREL) tablet 50 mg Current Outpatient Medications Medication Sig blood sugar diagnostic Strp strips 1 each by Miscellaneous route as needed. blood-glucose sensor ([employer] G7 SENSOR) Nancy 1 kit by Miscellaneous route as directed. Change every10 days FLUoxetine (PROZAC) 20 MG capsule Take 1 capsule (20 mg total) by mouth daily. FLUoxetine (PROZAC) 40 MG capsule Take 1 capsule (40 mg total) by mouth daily. gabapentin (NEURONTIN) 100 MG capsule Take 1 capsule (100 mg total) by mouth 2 (two) times a day asneeded (Anxiety, Sleep). Can take 2 to 3 tabs if needed for a dose of 200-300 mg glucagon (GVOKE) 1 mg/0.2 mL subcutaneous auto-injector Inject 0.2 mL (1 mg total) under the skin once as needed for low blood sugar (provide value). insulin aspart U-100 (NOVOLOG) 100 unit/mL injection vial Inject under the skin as needed. INJECT UP TO 150 UNITS DAILY OR DIRECTED VIA INSULIN PUMP levothyroxine (SYNTHROID, LEVOTHROID) 150 MCG tablet Take 1 tablet (150 mcg total) by mouth every morning. LORazepam (ATIVAN) 0.5 MG tablet Take 1 tablet (0.5 mg total) by mouth daily as needed for anxiety. REPATHA SYRINGE 140 mg/mL subcutaneous syringe INJECT 1ML UNDER THE SKIN EVERY 14 DAYS semaglutide, weight loss, (WEGOVY) 1 mg/0.5 mL subcutaneous injection Inject 0.5 mL (1 mg total) under the skin once a week. Start after completing 4 weeks of Wegovy 0.5 mg subcutaneous insulin pump (T:SLIM X2 CONTROL-IQ MISC) by Miscellaneous route. traZODone (DESYREL) 50 MG tablet Take 1 tablet (50 mg total) by mouth nightly at bedtime. Indications: insomnia associated with depression Allergies: Penicillins, Selegiline, Sulfa (sulfonamide antibiotics), and Sulfamethoxazole-trimethoprim Vital Signs: BP 109/58 Pulse 79 Temp 36.1 ??C (96.9 ??F) (Temporal) Resp 18 SpO2 100% Physical Exam Musculoskeletal: moves all extremities; no abnormal movements Station/Gait: normal Mental Status Exam Appearance: well groomed and appropriately dressed Behavior: cooperative and pleasant Psychomotor Activity: normal Speech: regular rate, regular rhythm, regular volume, and normal tone Mood: anxious Affect: full range Thought Process: linear Associations: no loosening of associations Thought Content: paranoid ideation Suicidal/Homicidal Ideation: no homicidal ideation and suicidal ideation with intent and plan Perceptions/Experiences: no hallucinations Insight: fair Judgment: limited Cognitive Exam Orientation/Sensorium: oriented x 3 Memory: immediate recall intact. Attention/Concentration: intact to observation Abstract Reasoning: intact to observation Fund of Knowledge: average Language: normal comprehension Labs/Imaging: Labs Reviewed CBC AND DIFFERENTIAL - Abnormal; Notable for the following components: Result Value RBC 3.92 (*) MCH 31.6 (*) All other components within normal limits BASIC METABOLIC PANEL - Abnormal; Notable for the following components: GLUCOSE 125 (*) All other components within normal limits URINALYSIS W/REFLEX URINE CULTURE - Abnormal; Notable for the following components: GLUCOSE 3+ (*) KETONES 1+ (*) All other components within normal limits KETONE BODIES, SERUM - Abnormal; Notable for the following components: BETA HYDROXYBUTYRATE 0.8 (*) All other components within normal limits BASIC METABOLIC PANEL - Abnormal; Notable for the following components: SODIUM 131 (*) CHLORIDE 97 (*) GLUCOSE 517 (*) CALCIUM 8.0 (*) All other components within normal limits BASIC METABOLIC PANEL - Abnormal; Notable for the following components: SODIUM 132 (*) GLUCOSE 352 (*) CALCIUM 8.0 (*) All other components within normal limits POCT GLUCOSE - Abnormal; Notable for the following components: Glucose 311 (*) All other components within normal limits POCT GLUCOSE - Abnormal; Notable for the following components: Glucose 376 (*) All other components within normal limits POCT GLUCOSE - Abnormal; Notable for the following components: Glucose, POCT 461 (*) All other components within normal limits POCT GLUCOSE - Abnormal; Notable for the following components: Glucose, POCT 430 (*) All other components within normal limits POCT GLUCOSE - Abnormal; Notable for the following components: Glucose, POCT 311 (*) All other components within normal limits POCT GLUCOSE - Abnormal; Notable for the following components: Glucose, POCT 376 (*) All other components within normal limits POCT GLUCOSE - Abnormal; Notable for the following components: Glucose, POCT 338 (*) All other components within normal limits POCT GLUCOSE - Abnormal; Notable for the following components: Glucose, POCT 465 (*) All other components within normal limits POCT GLUCOSE - Abnormal; Notable for the following components: Glucose, POCT 379 (*) All other components within normal limits POCT GLUCOSE - Abnormal; Notable for the following components: Glucose, POCT 413 (*) All other components within normal limits POCT GLUCOSE - Normal LFTS (HEPATIC PANEL) ETHANOL, BLOOD TOXICOLOGY SCREEN, URINE HCG, URINE KETONE BODIES, SERUM POCT GLUCOSE POCT GLUCOSE POCT GLUCOSE POCT GLUCOSE POCT GLUCOSE POCT GLUCOSE POCT GLUCOSE POCT GLUCOSE POCT GLUCOSE POCT GLUCOSE No orders to display Overall Suicide Risk Assessment (without further treatment): Suicide risk assessment (click to document) Suicide Risk Assessment Did the patient endorse recent thoughts of harm to self or others during this encounter?: No Suicidal thoughts: None Self-harm thoughts: None Homicidal thoughts: None Violent/destructive thoughts: None Additional details: concern for SA ~2 weeks ago, overinjection of insulin requring glycogen from at home Prior suicide behaviors or attempts: (!) Yes Additional details (prior suicide behaviors or attempts): 2011 suicide attempt by overdose requiring ICU stay; 2011 suicide attempt by overuse of insulin; 2023 multiple suicide attempts and gestures Static risk factors: H/o prior suicide attempts;Chronic medical illness;Chronic/severe mental illness Modifiable risk factors: Anxiety and/or panic;Impulsivity;Limited coping skills Protective factors: Supportive family/caregiver;Resilience What is the patient's current, overall, acute risk of harm to self and/or others?: (!) Moderate Actions taken to minimize risk of harm to self and others: Safety orders;Continue to monitor;Referred for evaluation for a higher level of care;Filed a Section 12(a) (10/08/242122) Impression/Plan (including standing medication and prn plan): Patient is a 49 y.o. female with a PPHx notable for MDD, MARTELL, three prior psychiatric hospitalizations (last [facility] 12/2023), two prior suicide attempts (via overdose, both requiring medical hospitalization), PMHx notable for T1DM on insulin pump, Hypothyroidism, prior STEMI with LAD (2017), GERD, Obesity s/p gastric bypass now on GLP-1; who presents to the [facility] ED with her with increased anxiety, racing thoughts, and SI. APS is consulted for safety assessment and disposition planning. Today's presentation notable for patients anxiety. Suicidal behaviors prior to admission and collateral from her are concerning for a decompensation of her mood disorder. Patient meets Section 12 criteria based on risk of harm to self. Plan is for inpatient psychiatric hospitalization. Endocrine following for diabetes management. [x] Moderate (Con): This patient is deemed to be at substantial risk if discharged and requires further psychiatric evaluation and treatment. At present, however, the patient feels safe in the hospital, and has the capacity to let staff know of any increase in suicidal thoughts/plan/intent. The patient is assessed NOT to be at high risk for imminent self-harm in a treatment setting, with the safety and containment of the Emergency Department. The patient will receive constant observation in addition to standard safety precautions. KAYDEN Valencia received psychiatric/crisis management services with assessment, stabilization, and disposition planning on 10/10/24. This included an updated mental status exam, and any necessary updates to the diagnostic evaluation, assessment of substance use, formulation, safety and treatment plans. The patient did not require 1:1 observation to maintain safety in this environment of care. Cosigned by Nati Maria MD, PhD at 10/10/2024 1:39 PM EDT Associated attestation - Nati Maria MD, PhD - 10/10/2024 1:39 PM EDT I saw and examined the patient. I was physically present, and I was immediately available for the duration of the assessment/procedure. I have reviewed the notes, assessments, and/or procedures performed by Cesilia Alejandro CNP, I concur with the documentation of Ramses Rowe. Nati Layton MD, PhD, Interventional Neuropsychiatrist [facility], [place], [place], [place] * Meagan Lopez RN - 10/09/2024 12:02 PM EDT Bed: 01 Expected date: Expected time: Means of arrival: Comments: [facility] ( [facility]) * Lenore Lerma, PMHNP-BC - 10/09/2024 10:12 AM EDT ACUTE PSYCHIATRY SERVICE PROGRESS NOTE PATIENT NAME: RAMSES ROWE SERVICE DATE: 10/09/2024 SERVICE TIME: 10:12 AM History of Present Illness/Interval History: For complete details, please see the initial consultation note. Patient is a 49 y.o. female with a PPHx notable for MDD, MARTELL, three prior psychiatric hospitalizations (last [facility] 11 12/2023), two prior suicide attempts (via overdose, both requiring medical hospitalization), PMHx notable for T1DM on insulin pump, Hypothyroidism, prior STEMI with LAD (2018), GERD, Obesity s/p gastric bypass now on GLP-1; who presents to the [facility] ED with her with increased anxiety and racing thoughts. APS is consulted for safety assessment and disposition planning. The interval events since the last note are as follows: - pt has been boarding in the ED for 18 hours awaiting psychiatric disposition - vital signs unremarkable - serum glucose has been down-trending, has gone from 517 to 311 over last 3 hours - endocrinology has made standing insulin recs now that insulin pump has been removed On interview this morning, the patient is pleasant and cooperative, endorsing significant difficulty making a bowel movement. Reports feeling very depressed. She states she was unable to sleep at allovernight. She is highly perseverative on being hospitalized at [facility], reporting adverse experience at [facility]. She states she would like to receive ECT. Reports she feels so tired that she has not been able to think about ending her life today. Endorses feeling highly anxious about going into the hospital anywhere other than [facility], though is amenable to it. (Adrian): Reports she has not gotten any sleep overnight, and continues to present as increasingly paranoid, disorganized, and oddly-related. Reports this presentation is similar to her last presentation during which she was hospitalized (in 2023), aside from the fact that this time, it was her idea to seek help to go into the hospital. Medication Changes: - change melatonin 10 mg PRN to standing QHS - increase lorazepam to 1 mg BID standing d/t significant anxiety and insomnia Medication: Current Facility-Administered Medications Medication dextrose (D50W) 50 % syringe 0-25 g dextrose (D50W) 50 % syringe 12.5-25 g FLUoxetine (PROzac) capsule 60 mg insulin lispro (ADMELOG, HumaLOG) subcutaneous injection 1-2 Units LORazepam (ATIVAN) tablet 0.5 mg melatonin tablet 10 mg ondansetron (PF) (ZOFRAN) injection 4 mg traZODone (DESYREL) tablet 50 mg Current Outpatient Medications Medication Sig blood sugar diagnostic Strp strips 1 each by Miscellaneous route as needed. blood-glucose sensor ([employer] G7 SENSOR) Nancy 1 kit by Miscellaneous route as directed. Change every10 days FLUoxetine (PROZAC) 20 MG capsule Take 1 capsule (20 mg total) by mouth daily. FLUoxetine (PROZAC) 40 MG capsule Take 1 capsule (40 mg total) by mouth daily. gabapentin (NEURONTIN) 100 MG capsule Take 1 capsule (100 mg total) by mouth 2 (two) times a day asneeded (Anxiety, Sleep). Can take 2 to 3 tabs if needed for a dose of 200-300 mg glucagon (GVOKE) 1 mg/0.2 mL subcutaneous auto-injector Inject 0.2 mL (1 mg total) under the skin once as needed for low blood sugar (provide value). insulin aspart U-100 (NOVOLOG) 100 unit/mL injection vial Inject under the skin as needed. INJECT UP TO 150 UNITS DAILY OR DIRECTED VIA INSULIN PUMP levothyroxine (SYNTHROID, LEVOTHROID) 150 MCG tablet Take 1 tablet (150 mcg total) by mouth every morning. LORazepam (ATIVAN) 0.5 MG tablet Take 1 tablet (0.5 mg total) by mouth daily as needed for anxiety. REPATHA SYRINGE 140 mg/mL subcutaneous syringe INJECT 1ML UNDER THE SKIN EVERY 14 DAYS semaglutide, weight loss, (WEGOVY) 1 mg/0.5 mL subcutaneous injection Inject 0.5 mL (1 mg total) under the skin once a week. Start after completing 4 weeks of Wegovy 0.5 mg subcutaneous insulin pump (T:SLIM X2 CONTROL-IQ MISC) by Miscellaneous route. traZODone (DESYREL) 50 MG tablet Take 1 tablet (50 mg total) by mouth nightly at bedtime. Indications: insomnia associated with depression Allergies: Penicillins, Selegiline, Sulfa (sulfonamide antibiotics), and Sulfamethoxazole-trimethoprim Vital Signs: BP 111/56 Pulse 73 Temp 36.6 ??C (97.9 ??F) Resp 17 SpO2 97% Physical Exam Musculoskeletal: moves all extremities; no abnormal movements Station/Gait: normal Mental Status Exam Appearance: well groomed and appropriately dressed Behavior: cooperative, eye contact limited, and oddly related Psychomotor Activity: fidgeting Speech: pressured Mood: anxious and irritable Affect: mood congruent Thought Process: disorganized and perseverative Associations: no loosening of associations Thought Content: paranoid ideation and persecutory delusions Suicidal/Homicidal Ideation: no homicidal ideation and suicidal ideation with intent and plan Perceptions/Experiences: no hallucinations Insight: fair Judgment: limited Cognitive Exam Orientation/Sensorium: oriented x 3 Memory: immediate recall intact. Attention/Concentration: intact to observation Abstract Reasoning: intact to observation Fund of Knowledge: average Language: normal comprehension Labs/Imaging: Labs Reviewed CBC AND DIFFERENTIAL - Abnormal; Notable for the following components: Result Value RBC 3.92 (*) MCH 31.6 (*) All other components within normal limits BASIC METABOLIC PANEL - Abnormal; Notable for the following components: GLUCOSE 125 (*) All other components within normal limits URINALYSIS W/REFLEX URINE CULTURE - Abnormal; Notable for the following components: GLUCOSE 3+ (*) KETONES 1+ (*) All other components within normal limits KETONE BODIES, SERUM - Abnormal; Notable for the following components: BETA HYDROXYBUTYRATE 0.8 (*) All other components within normal limits BASIC METABOLIC PANEL - Abnormal; Notable for the following components: SODIUM 131 (*) CHLORIDE 97 (*) GLUCOSE 517 (*) CALCIUM 8.0 (*) All other components within normal limits POCT GLUCOSE - Abnormal; Notable for the following components: Glucose 311 (*) All other components within normal limits POCT GLUCOSE - Abnormal; Notable for the following components: Glucose, POCT 461 (*) All other components within normal limits POCT GLUCOSE - Abnormal; Notable for the following components: Glucose, POCT 430 (*) All other components within normal limits POCT GLUCOSE - Abnormal; Notable for the following components: Glucose, POCT 311 (*) All other components within normal limits POCT GLUCOSE - Normal LFTS (HEPATIC PANEL) ETHANOL, BLOOD TOXICOLOGY SCREEN, URINE HCG, URINE BASIC METABOLIC PANEL KETONE BODIES, SERUM POCT GLUCOSE POCT GLUCOSE POCT GLUCOSE POCT GLUCOSE POCT GLUCOSE POCT GLUCOSE No orders to display Overall Suicide Risk Assessment (without further treatment): Suicide risk assessment (click to document) Suicide Risk Assessment Did the patient endorse recent thoughts of harm to self or others during this encounter?: No Suicidal thoughts: None Self-harm thoughts: None Homicidal thoughts: None Violent/destructive thoughts: None Additional details: concern for SA ~2 weeks ago, overinjection of insulin requring glycogen from at home Prior suicide behaviors or attempts: (!) Yes Additional details (prior suicide behaviors or attempts): 2011 suicide attempt by overdose requiring ICU stay; 2011 suicide attempt by overuse of insulin; 2023 multiple suicide attempts and gestures Static risk factors: H/o prior suicide attempts;Chronic medical illness;Chronic/severe mental illness Modifiable risk factors: Anxiety and/or panic;Impulsivity;Limited coping skills Protective factors: Supportive family/caregiver;Resilience What is the patient's current, overall, acute risk of harm to self and/or others?: (!) Moderate Actions taken to minimize risk of harm to self and others: Safety orders;Continue to monitor;Referred for evaluation for a higher level of care;Filed a Section 12(a) (10/08/242122) Impression/Plan (including standing medication and prn plan): Patient is a 49 y.o. female with a PPHx notable for MDD, MARTELL, three prior psychiatric hospitalizations (last [facility] 12/2023), two prior suicide attempts (via overdose, both requiring medical hospitalization), PMHx notable for T1DM on insulin pump, Hypothyroidism, prior STEMI with LAD (2018), GERD, Obesity s/p gastric bypass now on GLP-1; who presents to the [facility] ED with her with increased anxiety and racing thoughts. APS is consulted for safety assessment and disposition planning. Today's presentation notable for anxiety, irritability, insomnia, paranoia, and persecutory delusions raising concern for a bipolar diathesis or psychotic features overlying her depression. Her history is also concerning for recent suicidal behaviors including intentional manipulation of her insulin pump in attempts to overdose on insulin, as well as historical high lethality suicide attempts. Overall presentation is consistent with an unspecified mood disorder. Patient meets Section 12 criteria based on current suicidality, impaired judgment, and disorganized. Plan is for inpatient psychiatric hospitalization. Medication changes for today include increase in standing lorazepam given insomnia and significant anxiety. [x] Moderate (Con): This patient is deemed to be at substantial risk if discharged and requires further psychiatric evaluation and treatment. At present, however, the patient feels safe in the hospital, and has the capacity to let staff know of any increase in suicidal thoughts/plan/intent. The patient is assessed NOT to be at high risk for imminent self-harm in a treatment setting, with the safety and containment of the Emergency Department. The patient will receive constant observation in addition to standard safety precautions. RENO Gonzalez received psychiatric/crisis management services with assessment, stabilization, and disposition planning on 10/09/24. This included an updated mental status exam, and any necessary updates to the diagnostic evaluation, assessment of substance use, formulation, safety and treatment plans. The patient did not require 1:1 observation to maintain safety in this environment of care. Cosigned by Zo Burden MD, MPH at 10/09/2024 11:59 AM EDT * Liseth Lester PA-C - 10/08/2024 5:55 PM EDT [facility] Emergency Department Initial Observation Note Arrival Date: 10/08/2024 Chief Complaint Patient presents with Anxiety HPI: 49 y.o. female originally presented to the ED with pmhx of T1DM on insulin pump, hypothyroidism, weight loss s/p gastric bypass, STEMI 2018 2 MILKA placed, ischemic cardiomyopathy EF 58%, MDD, MARTELL, and factitious disorder during most recent inpatient psych admission who presents with gradual mental decline and feeling that she is not in control . States that she feels that her mind is racing and her thoughts are happening faster. Reports that there is a tape playing in her head at all times. Reports that she has become paranoid, reporting that she is unsure if things are coincidences orwhat is reality. Her and her endorse that this is the similar trajectory that led to her pre vious psychiatric admission that led to a suicide attempt psych, HI, EtOH, drugs, auditory or visual loose shins. Denied physical symptoms. Summarized ED Course: ED Course as of 10/08/24 2352 Sun Oct 08, 2024 183 Hgb: 12.4 WNL [DW] 1856 AST (SGOT): 14 [AC] 1856 ALT (SGPT) (U/L): 12 [AC] 185 Sodium: 138 [AC] 1858 Potassium: 3.7 [AC] 1857 BUN: 14 [AC] 1857 Creatinine: 0.78 [AC] 185 WBC: 9.62 [AC] 1858 Hgb: 12.4 [AC] 1858 HCT: 37.0 [AC] 1858 Med clear [AC] 1916 Ethanol (mg/dL): Negative [AC] 194 Per APS, she was remove her insulin pump. Endocrine paged and consulted for insulin recs. [AC] 1957 18 glargine now and keep pump on for 2 hours I unit lispro 15/grams of carbs Sliding scale lispro at meals no AC (not at bedtime) Custom sliding 151-250 she gets 1 unit lispro 251-350 she gets 2 units Endocrine will see her tomorrow [AC] 2109 Section 12 [AC] 221 Toxicology screen, urine Negative [AC] 2255 Confirm her nursing that insulin pump has been removed. Ready for APS. [AC] [address] Mesa. Pt presented with declining mental status, odd behaviors, paranoid - similar to episode last year. Relevant hx: IDDM on insulin pump, STEMI w stents, CHF, depression, anxiety, factitious disorder. ED findings/interventions include: section 12 by APS. Endocrine consulted to remove insulin pump and start SSI. Plan is section 12, dispo per APS, medically cleared. [EC] 2328 Assuming care. [] APS (when space) DM1, STEMI s/p 2 stents, iCMP (EF 50), depression, anxiety P/w c/f declining mental status Irrational thinking and behavior, hypersexual, manic, paranoid, breatk w/ reality Similar ssx last year, SA then APS S12 Here b/c insulin pump need to be removed Med clear APS aware Home meds and new insulin regimen in [MP] 2343 Medically clear [AC] 2348 Care passed off to BUFFY GRIFFITH. My care ends here [AC] ED Course User Index [AC] Liseth Lester PA-C [DW] Lambert Mesa MD [EC] Jamar Walter MD [MP] Dwight Barrera MD, PhD Clinical Impressions as of 10/08/24 2352 Paranoia ROS: All other systems are reviewed and negative except as noted here and in the HPI. Past History: Patient Active Problem List Diagnosis Condyloma acuminata Uncoded Health maintenance Allergic rhinitis Recurrent major depressive disorder, in full remission Gastroesophageal reflux disease Type 1 diabetes mellitus with other specified complication Hypothyroidism Hypercholesterolemia Generalized anxiety disorder with panic attacks Seasonal allergic rhinitis History of gastric bypass Iron deficiency anemia Vitamin D deficiency Weight gain Transient disorder of initiating or maintaining sleep Depression Participant in health and wellness plan Health care maintenance Vaginitis History of obesity Pneumonia Contraceptive management History of Joao-en-Y gastric bypass Encounter for annual routine gynecological examination Stress at home Myocardial infarction Coronary artery disease ST elevation myocardial infarction involving left anterior descending (LAD) coronary artery Ischemic cardiomyopathy Closed right calcaneal fracture Fracture follow-up Iron deficiency Ear ache Ingestion of substance, intentional self-harm, initial encounter Known medical problems Iatrogenic hyperthyroidism Urinary retention Orthostatic hypotension Major depressive disorder, recurrent 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 Drug-induced weight loss Paranoia Past Medical History: Diagnosis Date Cataract Diabetes mellitus History of myocardial infarct at age less than 60 years 07/15/2017 Hypothyroidism Past Surgical History: Procedure Laterality Date BREAST NEEDLE BIOPSY ESOPHAGOGASTRODUODENOSCOPY S/P Gastric bypass operation gastric bipass Medications: Current Facility-Administered Medications Medication Dose Route Frequency Provider Last Rate Last Admin dextrose (D50W) 50 % syringe 0-25 g 0-25 g Intravenous PRN Liseth Lester PA-C [START ON 10/09/2024] FLUoxetine (PROzac) capsule 60 mg 60 mg Oral Daily Liseth Lester PA-C [START ON 10/09/2024] insulin lispro (ADMELOG, HumaLOG) subcutaneous injection 1- 2 Units 1-2 Units Subcutaneous BID With Meals Liseth Lester PA-C LORazepam (ATIVAN) tablet 0.5 mg 0.5 mg Oral Daily PRN Liseth Lester PA-C melatonin tablet 10 mg 10 mg Oral Nightly PRN Liseth Lester PA-C traZODone (DESYREL) tablet 50 mg 50 mg Oral Nightly Liseth Lester PA-C Current Outpatient Medications Medication Sig Dispense Refill Last Dispense blood sugar diagnostic Strp strips 1 each by Miscellaneous route as needed. Unknown (patient-reported) blood-glucose sensor (DEXCOM G7 SENSOR) Nancy 1 kit by Miscellaneous route as directed. Change every10 days 9 each 3 Unknown (outside pharmacy) FLUoxetine (PROZAC) 20 MG capsule Take 1 capsule (20 mg total) by mouth daily. 60 capsule 1 Unknown(outside pharmacy) FLUoxetine (PROZAC) 40 MG capsule Take 1 capsule (40 mg total) by mouth daily. 90 capsule 1 Unknown(outside pharmacy) gabapentin (NEURONTIN) 100 MG capsule Take 1 capsule (100 mg total) by mouth 2 (two) times a day asneeded (Anxiety, Sleep). Can take 2 to 3 tabs if needed for a dose of 200-300 mg 30 capsule 2 Unknown (outside pharmacy) glucagon (GVOKE) 1 mg/0.2 mL subcutaneous auto-injector Inject 0.2 mL (1 mg total) under the skin once as needed for low blood sugar (provide value). 0.2 mL 2 Unknown (outside pharmacy) insulin aspart U-100 (NOVOLOG) 100 unit/mL injection vial Inject under the skin as needed. INJECT UP TO 150 UNITS DAILY OR DIRECTED VIA INSULIN PUMP Unknown (patient-reported) levothyroxine (SYNTHROID, LEVOTHROID) 150 MCG tablet Take 1 tablet (150 mcg total) by mouth every morning. 90 tablet 3 Unknown (outside pharmacy) LORazepam (ATIVAN) 0.5 MG tablet Take 1 tablet (0.5 mg total) by mouth daily as needed for anxiety.30 tablet 1 Unknown (outside pharmacy) REPATHA SYRINGE 140 mg/mL subcutaneous syringe INJECT 1ML UNDER THE SKIN EVERY 14 DAYS 6 mL 3 Unknown (outside pharmacy) semaglutide, weight loss, (WEGOVY) 1 mg/0.5 mL subcutaneous injection Inject 0.5 mL (1 mg total) under the skin once a week. Start after completing 4 weeks of Wegovy 0.5 mg 2 mL 5 Unknown (outside pharmacy) subcutaneous insulin pump (T:SLIM X2 [facility]) by Miscellaneous route. Unknown (patient-reported) traZODone (DESYREL) 50 MG tablet Take 1 tablet (50 mg total) by mouth nightly at bedtime. Indications: insomnia associated with depression 30 tablet 1 Unknown (outside pharmacy) Allergies: Allergies Allergen Reactions Penicillins Other (See Comments) rash; Selegiline Other (See Comments) skin irritation.; Sulfa (Sulfonamide Antibiotics) Other (See Comments) Rash; Sulfamethoxazole-Trimethoprim Other (See Comments) rash; Allergy entered as BACTRIM Social History: Social History Tobacco Use Smoking status: Former Current packs/day: 0.00 Average packs/day: 0.5 packs/day for 7.0 years (3.5 ttl pk-yrs) Types: Cigarettes Start date: 2007 Quit date: 2014 Years since quittin.6 Smokeless tobacco: Former Quit date: 2006 Substance Use Topics Alcohol use: Yes Comment: rarely Drug use: Never Please see above for social history Family History: Family History Problem Relation Age of Onset Anxiety disorder Mother Anxiety disorder Sister Cataracts Maternal Grandmother Please see above for family history. Physical Exam: Gen: BP 112/65 Pulse 66 Temp 36.2 ??C (97.2 ??F) Resp 16 SpO2 99% . Well developed. Eyes: Anicteric. HENT: Atraumatic nose. Resp: Normal resp rate. CV: RRR. GI: Nondistended. MSK: No deformity. Skin: Warm, dry. Neuro: GCS 15 Psych: Mood and Affect: normal Speech: normal Thought content: normal Judgement: normal Insight: good Assessment/Medical Decision Makin y.o. female for whom observation status is necessary for continued reevaluation, monitoring, andtreatment for an acute behavioral health that may require inpatient psychiatric care or change in outpatient support. ED Observation Plan: - Section 12 currently not indicated -Treatments: Offer anxiolytic medication as needed and in consultation with APS to help manage patient symptoms. -Complete medical clearance workup Tests pending: CBC BMP LFTs Urine Toxicology Serum ethanol COVID-19 test No orders to display -Consults pending: ED CONSULT TO ACUTE PSYCHIATRIC SERVICES (APS) IP CONSULT TO ENDOCRINOLOGY Contingency Planning: For agitation consider: Diagnoses and Relevant Comorbidities: 1. Paranoia Liseth Lester PA-C Cosigned by Lambert Mesa MD at 10/08/2024 11:53 PM EDT Associated attestation - Lambert Mesa MD - 10/08/2024 11:53 PM EDT I personally saw the patient as part of a shared visit with the advanced practice practitioner. I performed a substantive portion of the visit including all aspects of the medical decision making as documented. I participated in the disposition of the patient to Observation status. Please see the ED record for further details. * Chata Fraire RN - 10/08/2024 5:16 PM EDT Pt arrived due to worsening anxiety and racing thoughts that have been increasing over last month. Per pt sometimes is saying things that don't make sense. Pt denying SI/HI. Pt denying AH/ OH. Pt stating I feel like I'm in the twilight zone. Pt endorsed having dreams of things that haven't happened. Pt endorsed hypersensitivity to light, noise. PMH anxiety, MDD, DM Pt A+Ox4. Pt appears anxious. Pt stating I feel dehydrated, confused, maybe constipated. Pt intermittently using words that do not fit into context. Denying CP, SOB. 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 * Lambert Mesa MD - 10/08/2024 5:02 PM EDT Images from the original note were not included. [facility] Emergency Department H&P Patient Name: Ramses Rowe Date of : 1975 Chief Complaint Patient presents with Anxiety HPI: Ramses Rowe is a 49 y.o. female with PMHx of allergic rhinitis, GERD, type 1 diabetes, dyslipidemia, iron deficiency anemia, [place] s/p 2 stents c/b ischemic cardiomyopathy, thyroid disease who presents for evaluation of worsening anxiety and racing thoughts. Denies SI/HI. Denies AH/VH. Denies CP, SOB. Denies other medical complaints. Denies alcohol or drug use. reports that patient has had similar symptoms in the past which ultimately led to a suicide attempt and psychiatric admission. Bacteriologist Industrial was used: no Past Medical History: Diagnosis Date Cataract Diabetes mellitus History of myocardial infarct at age less than 60 years 07/15/2017 Hypothyroidism Physical Exam Vital Signs: BP (!) 151/68 Pulse 73 Temp 36.6 ??C (97.9 ??F) (Temporal) Resp 22 SpO2 100% Physical Exam Constitutional: General: She is not in acute distress. Appearance: She is not toxic-appearing. HENT: Head: Normocephalic and atraumatic. Mouth/Throat: Mouth: Mucous membranes are moist. Cardiovascular: Rate and Rhythm: Normal rate. Pulses: Normal pulses. Pulmonary: Effort: Pulmonary effort is normal. Breath sounds: Normal breath sounds. Abdominal: General: Abdomen is flat. Skin: General: Skin is warm. Capillary Refill: Capillary refill takes less than 2 seconds. Neurological: General: No focal deficit present. Mental Status: She is alert. Psychiatric: Comments: Anxious appearing MDM - Assessment and Plan Ramses Rowe is a 49 y.o. female with PMHx of allergic rhinitis, GERD, type 1 diabetes, dyslipidemia, iron deficiency anemia, [place] s/p 2 stents c/b ischemic cardiomyopathy, thyroid disease who presents for evaluation of worsening anxiety and racing thoughts. On exam anxious appearing, hypertensive otherwise nonfocal exam. Patient does not meet section 12 criteria however given concern given and prior symptomatology that ultimately led to a suicide attempt so we will obtain APS consult and [employer]. Labs Reviewed CBC AND DIFFERENTIAL - Abnormal; Notable for the following components: Result Value RBC 3.92 (*) MCH 31.6 (*) All other components within normal limits BASIC METABOLIC PANEL LFTS (HEPATIC PANEL) ETHANOL, BLOOD TOXICOLOGY SCREEN, URINE HCG, URINE No orders to display ED Course as of 10/11/24 1209 Sun Oct 08, 2024 183 Hgb: 12.4 WNL [DW] 1856 AST (SGOT): 14 [AC] 1857 ALT (SGPT) (U/L): 12 [AC] 1858 Sodium: 138 [AC] 1858 Potassium: 3.7 [AC] 1858 BUN: 14 [AC] 8 Creatinine: 0.78 [AC] 1858 WBC: 9.62 [AC] 1858 Hgb: 12.4 [AC] 1858 HCT: 37.0 [AC] 1858 Med clear [AC] 1916 Ethanol (mg/dL): Negative [AC] 194 Per APS, she was remove her insulin pump. Endocrine paged and consulted for insulin recs. [AC] 1957 18 glargine now and keep pump on for 2 hours I unit lispro 15/grams of carbs Sliding scale lispro at meals no AC (not at bedtime) Custom sliding 151-250 she gets 1 unit lispro 251-350 she gets 2 units Endocrine will see her tomorrow [AC] 2108 Section 12 [AC] 221 Toxicology screen, urine Negative [AC] 2255 Confirm her nursing that insulin pump has been removed. Ready for APS. [AC] [address] Mesa. Pt presented with declining mental status, odd behaviors, paranoid - similar to episode last year. Relevant hx: IDDM on insulin pump, STEMI w stents, CHF, depression, anxiety, factitious disorder. ED findings/interventions include: section 12 by APS. Endocrine consulted to remove insulin pump and start SSI. Plan is section 12, dispo per APS, medically cleared. [EC] 2327 Assuming care. [] APS (when space) DM1, STEMI s/p 2 stents, iCMP (EF 50), depression, anxiety P/w c/f declining mental status Irrational thinking and behavior, hypersexual, manic, paranoid, breatk w/ reality Similar ssx last year, SA then APS S12 Here b/c insulin pump need to be removed Med clear APS aware Home meds and new insulin regimen in [MP] 2342 Medically clear [AC] 2347 Care passed off to BUFFY GRIFFITH. My care ends here [AC] WedOct 09, 2024 0031 Patient feels like she may have UTI, sending UA [MP] 0126 [] APS recs [MP] 0258 Patient mildly hypotensive, feels dehydrated, endorsing nausea, will give zofran + IVF [MP] 0513 Ketones - UA(!): 1+ Will check serum ketones [MP] 0513 Glucose (POC)(!): 461 Will give insulin [MP] 0515 [] insulin now [] serum ketones and BMP now [] ~0600 repeat glucose [MP] 0618 Per pharmacy, no more insulin sudeep, repeat glucose around 730, then can consider redosing lispro. [MP] 0639 Anion Gap: 11 Not DKA [MP] 0639 Beta Hydroxybutyrate(!): 0.8 Iso starvation, will CTM [MP] 0639 Glucose(!!): 517 Already treating, will CTM [MP] 0703 [] ~0730 repeat POCTG [] ~1000 repeat BMP [] consider more insulin [] APS recs [MP] 0729 Assumed care. 49yoF p/w change in thinking patterns concerning to her and her , which had previously lead to a suicide attempt. APS has seen her and recommended section 12. Insulin pump (had to be removed for APS) Endocrine gave recs for insulin. Most recent glucose 430. No DKA Repeat BMP Redose insulin this morning? 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 C/o ms status change, simiar to prior that led to SAttempt. Also with insulin pump, recommnedation for removelemtn, endocrine recs for insulin, [ ] section 12 for soft first, [ ] sliding scale, lispro for long acting [ ] encourage po, more ivf [ ] endocrine recs [HC] 0743 Transitioned care to my ED colleague, my care ends here. [MP] 0818 Glucose (POC)(!): 311 Improving [CV] 1042 APS planning for IPLOC. She is medically cleared [CV] 1206 Patient transferred to APS in stable condition [CV] ED Course User Index [AC] Liseth Lester PA-C [CV] Efraín Watts PA-C [DW] Lambert Mesa MD [EC] Jamar Walter MD [HC] Ruthy Miller MD, MPH [MP] Dwight Barrera MD, PhD Clinical Impressions as of 10/11/24 1209 Paranoia Attestation: I saw the patient as part of a shared visit with the advanced practice practitioner. I personally made or approved the management plan and take responsibility for the patient management. Category 1: Tests, Studies or Independent Historians: Independent Historian: Independent history was obtained by family/guardian. See HPI. Category 2 and 3: Independent Interpretation of Tests, Consideration of Tests, or External Discussion of Results: Labs: Laboratory studies were interpreted. Consults: The patient was discussed with Other Consulting Service, please see their documentation for additional details and recommendations. Psych consulted. Disposition: ED Obs Lambert Mesa MD Emergency Medicine Attending [id number] Lambert Mesa MD 10/11/24 1212 * Dwight Barrera MD, PhD - 10/08/2024 5:02 PM EDT Emergency Department Update Note ED Update Note: See ED provider notes from the original ED attending and ED resident/PA/student forfurther details of HPI, history, initial presentation and exam. I received care of this patient in the timeline below. The patient was stable throughout my care, including at time of disposition. ED Course as of 10/09/24 0753 Sun Oct 08, 2024 1835 Hgb: 12.4 WNL [DW] 1857 AST (SGOT): 14 [AC] 1857 ALT (SGPT) (U/L): 12 [AC] 1857 Sodium: 138 [AC] 1857 Potassium: 3.7 [AC] 1857 BUN: 14 [AC] 1857 Creatinine: 0.78 [AC] 1857 WBC: 9.62 [AC] 1857 Hgb: 12.4 [AC] 1857 HCT: 37.0 [AC] 1857 Med clear [AC] 1916 Ethanol (mg/dL): Negative [AC] 1947 Per APS, she was remove her insulin pump. Endocrine paged and consulted for insulin recs. [AC] 1957 18 glargine now and keep pump on for 2 hours I unit lispro 15/grams of carbs Sliding scale lispro at meals no AC (not at bedtime) Custom sliding 151-250 she gets 1 unit lispro 251-350 she gets 2 units Endocrine will see her tomorrow [AC] 2108 Section 12 [AC] 2210 Toxicology screen, urine Negative [AC] 2255 Confirm her nursing that insulin pump has been removed. Ready for APS. [AC] [address] Mesa. Pt presented with declining mental status, odd behaviors, paranoid - similar to episode last year. Relevant hx: IDDM on insulin pump, STEMI w stents, CHF, depression, anxiety, factitious disorder. ED findings/interventions include: section 12 by APS. Endocrine consulted to remove insulin pump and start SSI. Plan is section 12, dispo per APS, medically cleared. [EC] 2327 Assuming care. [] APS (when space) DM1, STEMI s/p 2 stents, iCMP (EF 50), depression, anxiety P/w c/f declining mental status Irrational thinking and behavior, hypersexual, manic, paranoid, breatk w/ reality Similar ssx last year, SA then APS S12 Here b/c insulin pump need to be removed Med clear APS aware Home meds and new insulin regimen in [MP] 2342 Medically clear [AC] 2347 Care passed off to BUFFY GRIFFITH. My care ends here [AC] WedOct 09, 2024 0031 Patient feels like she may have UTI, sending UA [MP] 0126 [] APS recs [MP] 0258 Patient mildly hypotensive, feels dehydrated, endorsing nausea, will give zofran + IVF [MP] 0513 Ketones - UA(!): 1+ Will check serum ketones [MP] 0513 Glucose (POC)(!): 461 Will give insulin [MP] 0515 [] insulin now [] serum ketones and BMP now [] ~0600 repeat glucose [MP] 0618 Per pharmacy, no more insulin sudeep, repeat glucose around 730, then can consider redosing lispro. [MP] 0639 Anion Gap: 11 Not DKA [MP] 0639 Beta Hydroxybutyrate(!): 0.8 Iso starvation, will CTM [MP] 0639 Glucose(!!): 517 Already treating, will CTM [MP] 0703 [] ~0730 repeat POCTG [] ~1000 repeat BMP [] consider more insulin [] APS recs [MP] 0729 Assumed care. 49yoF p/w change in thinking patterns concerning to her and her , which had previously lead to a suicide attempt. APS has seen her and recommended section 12. Insulin pump (had to be removed for APS) Endocrine gave recs for insulin. Most recent glucose 430. No DKA Repeat BMP Redose insulin this morning? 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 C/o ms status change, simiar to prior that led to SAttempt. Also with insulin pump, recommnedation for removelemtn, endocrine recs for insulin, [ ] section 12 for soft first, [ ] sliding scale, lispro for long acting [ ] encourage po, more ivf [ ] endocrine recs [HC] 0767 Transitioned care to my ED colleague, my care ends here. [MP] ED Course User Index [AC] Liseth Lester PA-C [CV] Efraín Watts PA-C [DW] Lambert Mesa MD [EC] Jamar Walter MD [HC] Ruthy Miller MD, MPH [MP] Dwight Barrera MD, PhD Clinical Impressions as of 10/09/24752 Dwight Bolton MD, PhD Resident 10/09/24752 documented in this encounter Miscellaneous Notes * Plan of Care - Annabelle Michel RN - 10/13/2024 5:31 PM EDT ED Transfer Note Pt accepted to [facility] Dr[address] Escalera and pt can arrive 10/13 at 6:00 PM. No prior auth required. External (non-[facility] * Assessment & Plan Note - Rebeka Estrada FNP - 10/09/2024 12:24 PM EDT Associated Problem(s): Type 1 diabetes mellitus with other specified complication The Inpatient Diabetes Management Service has been consulted to assist with achieving glycemic control with hx of T1DM. Of note, she had an suicide attempt with 300 units of insulin during her previous [facility] admission in Jan 2024. 49 y.o. female originally presented to the ED with pmhx of T1DM on insulin pump, hypothyroidism, weight loss s/p gastric bypass, STEMI 2018 2 MILKA placed, ischemic cardiomyopathy EF 58%, MDD, MARTELL, andfactitious disorder during most recent inpatient psych admission who presents with gradual mental decline and feeling that she is not in control . Admitted for paranoia as she is uncertain if thingsare coincidences or what is reality. Her and her endorse that this is the similar trajectory that led to her previous psychiatric admission that led to a suicide attempt psych, HI, EtOH, drugs, auditory or visual loose shins. Denied physical symptoms. For her T1DM, she is followed at the [facility] with last visit with Dr. Timbo Calle on 10/07/24 as telemedicine visit. Home Rx: Wegovy 1 mg weekly - well tolerated Tandem insulin pump with Control IQ Basal 0.8 units/hr ISF: 60 CR: 10 BG target: 120 Pt's blood sugars low to 68 mg/dl this morning despite Lantus being lowered to 12 units last night.Elevated to 369 mg/dl after breakfast today possibly due to BG being taken right after eating. As she has overall been trending tightly, will plan to decrease her Lantus to 10 units and Lispro to 3 units with meals. Will titrate up if blood sugars start to go higher. Reviewed with pt and she is amenable to changes. We will continue to follow. Recommendations: Decrease Lantus to 10 units qhs, if NPO give 8 units. Please do not hold/delay basal insulin in pt with type 1 diabetes. Decrease Lispro to 3 units with meals. Nutritional insulin. Please allow patient to choose lower insulin dose if she is eating less (based on carbs content of the meal) HOLD if NPO. Lispro custom insulin sliding scale (0-6 units) starting when glucose at 180 mg/dL TID AC. DO NOT use at bedtime - glucose 180-240- 2 units, Glucose 241- 300- 3 units, Glucose 301- 350- 4 units, Glucose 351- 400-5 units, Glucose > 400- 6 units and page RC FSBG QID- AC, HS, and if any signs or symptoms of hypoglycemia documented in this encounter Plan of Treatment Upcoming Encounters Date Type Department Care Team (Late st Contact Info) Description 10/23/2024 8:00 AM EDT Appointment [facility] Nuclear Medicine [address] [place] [id number] Tanvi English MD, DrPH [address] [place] [id number] [email or web address] 10/24/2024 2:30 PM EDT Telemedicine [facility] [address], [address] [place] [address] Jeremias Lawrence MD [address] [facility] [address] [place] [address] [email or web address] 11/07/2024 9:00 AM EDT Telemedicine [facility] [address], [address] [place] [address] Jeremias Lawrence MD [address] [facility] [address] [place] [address] [email or web address] 12/13/2024 8:30 AM EDT Telemedicine [facility] Weight Center [address] [facility] [address] [place] [address] Sammy Groves MD [address] [facility]th [address] [place] [address] [email or web address] 01/08/2025 12:35 PM EST Office Visit [facility] Diabetes Center [address] [facility] [address] [place] [address] Timbo Calle MD [address] [place] [address] [id number] [place] [address] [email or web address] documented as of this encounter Procedures Procedure Name Priority Date/Time Associated Diagnosis Comments POCT GLUCOSE Routine 10/13/2024 9:52 PM EDT POCT GLUCOSE Routine 10/13/2024 8:39 PM EDT POCT GLUCOSE Routine 10/13/2024 8:39 PM EDT POCT GLUCOSE Routine 10/13/2024 6:33 PM EDT POCT GLUCOSE Routine 10/13/2024 6:33 PM EDT URINALYSIS W/REFLEX URINE CULTURE STAT 10/13/2024 2:11 PM EDT POCT GLUCOSE Routine 10/13/2024 1:20 PM EDT CBC AND DIFFERENTIAL STAT 10/13/2024 1:11 PM EDT BASIC METABOLIC PANEL STAT 10/13/2024 1:11 PM EDT POCT GLUCOSE Routine 10/13/2024 12:42 PM EDT POCT GLUCOSE Routine 10/13/2024 8:58 AM EDT POCT GLUCOSE Routine 10/13/2024 4:25 AM EDT POCT GLUCOSE Routine 10/13/2024 1:53 AM EDT POCT GLUCOSE Routine 10/12/2024 9:38 PM EDT POCT GLUCOSE Routine 10/12/2024 9:18 PM EDT POCT GLUCOSE Routine 10/12/2024 9:15 PM EDT POCT GLUCOSE Routine 10/12/2024 6:37 PM EDT POCT GLUCOSE Routine 10/12/2024 6:37 PM EDT POCT GLUCOSE Routine 10/12/2024 1:27 PM EDT POCT GLUCOSE Routine 10/12/2024 9:46 AM EDT POCT GLUCOSE Routine 10/12/2024 9:13 AM EDT POCT GLUCOSE Routine 10/12/2024 8:54 AM EDT POCT GLUCOSE Routine 10/11/2024 8:50 PM EDT POCT GLUCOSE Routine 10/11/2024 8:50 PM EDT POCT GLUCOSE Routine 10/11/2024 6:48 PM EDT POCT GLUCOSE Routine 10/11/2024 6:48 PM EDT POCT GLUCOSE Routine 10/11/2024 5:05 PM EDT POCT GLUCOSE Routine 10/11/2024 5:03 PM EDT POCT GLUCOSE Routine 10/11/2024 1:33 PM EDT POCT GLUCOSE Routine 10/11/2024 1:32 PM EDT POCT GLUCOSE Routine 10/11/2024 8:19 AM EDT POCT GLUCOSE Routine 10/11/2024 8:18 AM EDT POCT GLUCOSE Routine 10/10/2024 9:20 PM EDT POCT GLUCOSE Routine 10/10/2024 7:04 PM EDT POCT GLUCOSE Routine 10/10/2024 1:52 PM EDT POCT GLUCOSE Routine 10/10/2024 1:50 PM EDT URINALYSIS W/REFLEX URINE CULTURE STAT 10/10/2024 1:12 PM EDT POCT GLUCOSE Routine 10/10/2024 12:10 PM EDT POCT GLUCOSE STAT 10/10/2024 9:56 AM EDT POCT GLUCOSE Routine 10/10/2024 9:51 AM EDT POCT GLUCOSE Routine 10/10/2024 9:23 AM EDT POCT GLUCOSE Routine 10/10/2024 9:22 AM EDT POCT GLUCOSE Routine 10/09/2024 9:24 PM EDT POCT GLUCOSE Routine 10/09/2024 6:37 PM EDT POCT GLUCOSE Routine 10/09/2024 3:51 PM EDT POCT GLUCOSE Routine 10/09/2024 1:47 PM EDT POCT GLUCOSE Routine 10/09/2024 11:02 AM EDT POCT GLUCOSE Routine 10/09/2024 11:00 AM EDT KETONE BODIES, SERUM STAT 10/09/2024 10:13 AM EDT BASIC METABOLIC PANEL Timed 10/09/2024 10:13 AM EDT POCT GLUCOSE Routine 10/09/2024 8:17 AM EDT POCT GLUCOSE Routine 10/09/2024 8:14 AM EDT POCT GLUCOSE Routine 10/09/2024 6:07 AM EDT KETONE BODIES, SERUM STAT 10/09/2024 5:17 AM EDT BASIC METABOLIC PANEL STAT 10/09/2024 5:17 AM EDT POCT GLUCOSE Routine 10/09/2024 5:02 AM EDT URINALYSIS W/REFLEX URINE CULTURE STAT 10/09/2024 4:19 AM EDT POCT GLUCOSE Routine 10/08/2024 9:37 PM EDT POCT GLUCOSE Routine 10/08/2024 9:36 PM EDT POCT GLUCOSE Routine 10/08/2024 8:12 PM EDT TOXICOLOGY SCREEN, URINE STAT 10/08/2024 7:49 PM EDT URINE HCG STAT 10/08/2024 7:49 PM EDT ETHANOL, BLOOD STAT 10/08/2024 5:56 PM EDT LFTS (HEPATIC PANEL) STAT 10/08/2024 5:56 PM EDT CBC AND DIFFERENTIAL STAT 10/08/2024 5:56 PM EDT BASIC METABOLIC PANEL STAT 10/08/2024 5:56 PM EDT documented in this encounter Results * (ABNORMAL) POCT Glucose (10/13/2024 9:52 PM EDT) Glucose, POCT >500(HH) 70 - 110 mg/dL [facility] 10/13/2024 9:52 PM EDT 10/13/2024 9:54 PM EDT us Vern Rivas MD POINT OF CARE TEST ORDERABLES Final Result [facility] [address] [place] [address] * (ABNORMAL) POCT Glucose (10/13/2024 8:39 PM EDT) Glucose, POCT >500(HH) 70 - 110 mg/dL [facility] 10/13/2024 8:39 PM EDT 10/13/2024 8:42 PM EDT us Vern Rivas MD POINT OF CARE TEST ORDERABLES Final Result Performing Organization Address [facility]/ZIP Co de Phone Number [address] [address] * POCT Glucose (10/13/2024 8:39 PM EDT) Glucose >500 70 - 100 mg/dL 10/13/2024 8:39 PM EDT Liseth Lester PA-C POINT OF CARE TEST ORDERABLE S Final Result * (ABNORMAL) POCT Glucose (10/13/2024 6:33 PM EDT) Glucose, POCT 136(H) 70 - 110 mg/dL [facility] 10/13/2024 6:33 PM EDT 10/13/2024 6:38 PM EDT Holly Montoya MD, PhD POINT OF CARE TEST ORDER ANNELISE Final Result Performing Organization Address [facility] Co de Phone Number [address] [address] * (ABNORMAL) POCT Glucose (10/13/2024 6:33 PM EDT) Glucose 136(A) 70 - 100 mg/dL 10/13/2024 6:33 PM EDT Result [facility] Liseth Lester PA-C POINT OF CARE TEST ORDERABLE S Final Result * (ABNORMAL) Urinalysis w/reflex Urine Culture (10/13/2024 2:11 PM EDT) COLOR Yellow Yellow [facility] CLARITY Clear Clear [facility] GLUCOSE 3+(A) Negative [facility] Comment:(>=300 mg/dL) BILI Negative Negative [facility] KETONES Negative Negative [facility] SPECIFIC GRAVITY 1.022 1.001 - 1.035 [facility] BLOOD Negative Negative [facility] PH 7.0 5.0 - 9.0 [facility] Protein-UA Negative Negative [facility] UROBILINOGEN Negative Negative [facility] NITRITE Negative Negative [facility] Leukocyte esterase, ur Negative Negative [facility] Urine (Urine) 10/13/2024 2:1 1 PM EDT 10/13/2024 4:50 PM EDT Cesilia Alejandro CNP URINE ORDERABLES Final Resu lt Performing Organization Address [facility] Co de Phone Number [address] [address] * (ABNORMAL) POCT Glucose (10/13/2024 1:20 PM EDT) Glucose, POCT 369(H) 70 - 110 mg/dL [facility] 10/13/2024 1:20 PM EDT 10/13/2024 1:25 PM EDT Brendan Leonard MD POINT OF CARE TEST ORDERABLES Fi nal Result Performing Organization Address [facility] Co de Phone Number [address] [address] * (ABNORMAL) Basic metabolic panel (10/13/2024 1:11 PM EDT) SODIUM 132(L) 135 - 145 mmol/L [facility] POTASSIUM 4.6 3.4 - 5.0 mmol/L [facility] CHLORIDE 97(L) 98 - 108 mmol/L [facility] CO2 26 23 - 32 mmol/L [facility] BUN 11 8 - 25 mg/dL [facility] CREATININE 0.88 0.50 - 1.00 mg/dL [facility] GLUCOSE 377(H) 70 - 110 mg/dL [facility] CALCIUM 8.2(L) 8.5 - 10.5 mg/dL [facility] EGFR 82 >59 mL/min/1. 73m2 [facility] Comment:Estimated glomerular filtration rate calculated using the CKD-EPI refit equation. ANION GAP 9 3 - 17 mmol/L [facility] Blood 10/13/2024 1:11 PM EDT 10/13/2024 1:36 PM EDT us Cesilia Alejandro JAVA TECHNICAL ARCHITECT LAB BLOOD ORDERABLES Final Result [facility] [address] [place] [address] * (ABNORMAL) CBC and differential (10/13/2024 1:11 PM EDT) WBC 8.71 4.00 - 11.00 K/uL [facility] RBC 3.65(L) 4.00 - 5.20 M/uL [facility] HGB 11.8(L) 12.0 - 16.0 g/dL [facility] HCT 34.1(L) 36.0 - 46.0 % [facility] PLT 194 150 - 450 K/uL [facility] MCV 93.4 80.0 - 100.0 fL [facility] MCH 32.3(H) 27.0 - 31.0 pg [facility] MCHC 34.6 32.0 - 36.0 g/dL [facility] RDW 12.9 11.5 - 14.5 % [facility] MPV 10.0 8.4 - 12.0 fL [facility] NRBC 0.00 0.00 /100 WBCs [facility] ABSOLUTE NRBC 0.00 0.00 K/uL [facility] DIFF METHOD Auto [facility] NEUTS 62.2 48.0 - 76.0 % [facility] LYMPHS 28.5 18.0 - 41.0 % [facility] MONOS 4.7 4.0 - 11.0 % [facility] EOS 3.2 0.0 - 5.0 % [facility] BASOS 0.9 0.0 - 1.5 % [facility] % IMMATURE GRANS 0.5 0.0 - 0.9 % [facility] ABSOLUTE NEUTS 5.42 1.92 - 7.60 K/uL [facility] ABSOLUTE LYMPHS 2.48 0.72 - 4.10 K/uL [facility] ABSOLUTE MONOS 0.41 0.16 - 1.10 K/uL [facility] ABSOLUTE EOS 0.28 0.00 - 0.50 K/uL [facility] ABSOLUTE BASOS 0.08 0.00 - 0.15 K/uL [facility] ABS IMMATURE GRANS 0.04 0.00 - 0.09 K/uL [facility] Blood 10/13/2024 1:11 PM EDT 10/13/2024 1:36 PM EDT us Cesilia Alejandro CNP LAB BLOOD ORDERABLES Final Result Performing Organization Address City/[facility]/ZIP Co de Phone Number [address] [address] * (ABNORMAL) POCT Glucose (10/13/2024 12:42 PM EDT) Glucose 68(A) 70 - 100 mg/dL 10/13/2024 12:4 2 PM EDT Liseth Lester PA-C POINT OF CARE TEST ORDERABLE S Final Result * (ABNORMAL) POCT Glucose (10/13/2024 8:58 AM EDT) Glucose, POCT 68(L) 70 - 110 mg/dL [facility] 10/13/2024 8:58 AM EDT 10/13/2024 1:18 PM EDT Brendan Leonard MD POINT OF CARE TEST ORDERABLES Fi nal Result Performing Organization Address [facility]/ZIP Co de Phone Number [address] [address] * (ABNORMAL) POCT Glucose (10/13/2024 4:25 AM EDT) Glucose, POCT 149(H) 70 - 110 mg/dL [facility] 10/13/2024 4:25 AM EDT 10/13/2024 4:27 AM EDT Brendan Dc MD, RENATO POINT OF CARE TEST ORDERAB LES Final Result Performing Organization Address [facility]/ZIP Co de Phone Number [address] [address] * (ABNORMAL) POCT Glucose (10/13/2024 1:53 AM EDT) Glucose, POCT 207(H) 70 - 110 mg/dL [facility] 10/13/2024 1:53 AM EDT 10/13/2024 1:55 AM EDT us Brendan Dc MD, MBA POINT OF CARE TEST ORDERAB LES Final Result Performing Organization Address City/[facility]/ZIP Co de Phone Number [address] [address] * (ABNORMAL) POCT Glucose (10/12/2024 9:38 PM EDT) Glucose, POCT 137(H) 70 - 110 mg/dL [facility] 10/12/2024 9:38 PM EDT 10/12/2024 9:41 PM EDT us Brendan Dc MD, MBA POINT OF CARE TEST ORDERAB LES Final Result Performing Organization Address [facility] Co de Phone Number [address] [address] * (ABNORMAL) POCT Glucose (10/12/2024 9:18 PM EDT) Glucose 60(A) 70 - 100 mg/dL 10/12/2024 9:18 PM EDT us Liseth Lester PA-C POINT OF CARE TEST ORDERABLE S Final Result * (ABNORMAL) POCT Glucose (10/12/2024 9:15 PM EDT) Glucose, POCT 60(L) 70 - 110 mg/dL [facility] 10/12/2024 9:15 PM EDT 10/12/2024 9:18 PM EDT us Brendan Dc MD, MBA POINT OF CARE TEST ORDERAB LES Final Result [address] [address] * (ABNORMAL) POCT Glucose (10/12/2024 6:37 PM EDT) Glucose, POCT 131(H) 70 - 110 mg/dL [facility] 10/12/2024 6:37 PM EDT 10/12/2024 6:41 PM EDT Macie Mendez MD POINT OF CARE TEST ORDERABLES Fi nal Result [address] [address] * (ABNORMAL) POCT Glucose (10/12/2024 6:37 PM EDT) Glucose 131(A) 70 - 100 mg/dL 10/12/2024 6:37 PM EDT Liseth eLster PA-C POINT OF CARE TEST ORDERABLE S Final Result * (ABNORMAL) POCT Glucose (10/12/2024 1:27 PM EDT) Glucose, POCT 135(H) 70 - 110 mg/dL [facility] 10/12/2024 1:27 PM EDT 10/12/2024 1:30 PM EDT Pavithra Saunders MD POINT OF CARE TEST ORDERABLES Fi nal Result [address] [address] * (ABNORMAL) POCT Glucose (10/12/2024 9:46 AM EDT) Glucose, POCT 262(H) 70 - 110 mg/dL [facility] 10/12/2024 9:46 AM EDT 10/12/2024 9:49 AM EDT Pavithra Saunders MD POINT OF CARE TEST ORDERABLES Fi nal Result [address] [address] * (ABNORMAL) POCT Glucose (10/12/2024 9:13 AM EDT) Glucose, POCT 125(H) 70 - 110 mg/dL [facility] 10/12/2024 9:13 AM EDT 10/12/2024 9:15 AM EDT Pavithra Saunders MD POINT OF CARE TEST ORDERABLES Fi nal Result Performing Organization Address City/[facility] Co de Phone Number [address] [address] * (ABNORMAL) POCT Glucose (10/12/2024 8:54 AM EDT) Glucose, POCT 58(L) 70 - 110 mg/dL [facility] 10/12/2024 8:54 AM EDT 10/12/2024 9:00 AM EDT Pavithra Saunders MD POINT OF CARE TEST ORDERABLES Fi nal Result Performing Organization Address [facility] Co de Phone Number [address] [address] * (ABNORMAL) POCT Glucose (10/11/2024 8:50 PM EDT) Glucose, POCT 266(H) 70 - 110 mg/dL [facility] 10/11/2024 8:50 PM EDT 10/11/2024 8:53 PM EDT Akin Maher MD, MPH POINT OF CARE TEST ORDERABLES Final Result Performing Organization Address City/[facility] Co de Phone Number [address] [address] * (ABNORMAL) POCT Glucose (10/11/2024 8:50 PM EDT) Glucose 266(A) 70 - 100 mg/dL 10/11/2024 8:50 PM EDT Liseth Lester PA-C POINT OF CARE TEST ORDERABLE S Final Result * (ABNORMAL) POCT Glucose (10/11/2024 6:48 PM EDT) Glucose, POCT 140(H) 70 - 110 mg/dL [facility] 10/11/2024 6:48 PM EDT 10/11/2024 6:54 PM EDT Emma Burton MD POINT OF CARE TEST ORDERAB LES Final Result Performing Organization Address City/[facility]/ZIP Co de Phone Number [address] [address] * (ABNORMAL) POCT Glucose (10/11/2024 6:48 PM EDT) Glucose 140(A) 70 - 100 mg/dL 10/11/2024 6:48 PM EDT Liseth STATON-Autumn POINT OF CARE TEST ORDERABLE S Final Result * (ABNORMAL) POCT Glucose (10/11/2024 5:05 PM EDT) Glucose 154(A) 70 - 100 mg/dL 10/11/2024 5:05 PM EDT Liseth STATON-C POINT OF CARE TEST ORDERABLE S Final Result * (ABNORMAL) POCT Glucose (10/11/2024 5:03 PM EDT) Glucose, POCT 154(H) 70 - 110 mg/dL [facility] 10/11/2024 5:03 PM EDT 10/11/2024 5:08 PM EDT Emma Burton MD POINT OF CARE TEST ORDERAB LES Final Result Performing Organization Address City/[facility]/ZIP Co de Phone Number [address] [address] * (ABNORMAL) POCT Glucose (10/11/2024 1:33 PM EDT) Glucose 303(A) 70 - 100 mg/dL 10/11/2024 1:33 PM EDT us Liseth Lester PA-C POINT OF CARE TEST ORDERABLE S Final Result * (ABNORMAL) POCT Glucose (10/11/2024 1:32 PM EDT) Glucose, POCT 303(H) 70 - 110 mg/dL [facility] 10/11/2024 1:32 PM EDT 10/11/2024 1:38 PM EDT Ban Zapata MD POINT OF CARE TEST ORDERABLES Final Result Performing Organization Address [facility] Co de Phone Number [address] [address] * (ABNORMAL) POCT Glucose (10/11/2024 8:19 AM EDT) Glucose 108(A) 70 - 100 mg/dL 10/11/2024 8:19 AM EDT Liseth Lester PA-C POINT OF CARE TEST ORDERABLE S Final Result * POCT Glucose (10/11/2024 8:18 AM EDT) Glucose, POCT 108 70 - 110 mg/dL [facility] 10/11/2024 8:18 AM EDT 10/11/2024 8:24 AM EDT us Ban Zapata MD POINT OF CARE TEST ORDERABLES Final Result Performing Organization Address City/[facility]/ZIP Co de Phone Number [address] [address] * (ABNORMAL) POCT Glucose (10/10/2024 9:20 PM EDT) Glucose, POCT 240(H) 70 - 110 mg/dL [facility] 10/10/2024 9:20 PM EDT 10/10/2024 9:25 PM EDT Brendan Dc MD, RENATO POINT OF CARE TEST ORDERAB LES Final Result [address] [address] * (ABNORMAL) POCT Glucose (10/10/2024 7:04 PM EDT) Glucose, POCT 113(H) 70 - 110 mg/dL [facility] 10/10/2024 7:04 PM EDT 10/10/2024 7:06 PM EDT us Emma Burton MD POINT OF CARE TEST ORDERAB LES Final Result Performing Organization Address [facility] Co de Phone Number [address] [address] * (ABNORMAL) POCT Glucose (10/10/2024 1:52 PM EDT) Glucose 243(A) 70 - 100 mg/dL 10/10/2024 1:52 PM EDT us Liseth Lester PA-C POINT OF CARE TEST ORDERABLE S Final Result * (ABNORMAL) POCT Glucose (10/10/2024 1:50 PM EDT) Glucose, POCT 243(H) 70 - 110 mg/dL [facility] 10/10/2024 1:50 PM EDT 10/10/2024 1:55 PM EDT us Nati Maria MD, PhD POINT OF CARE TEST ORDERABLES Final Result Performing Organization Address City/[facility]/ZIP Co de Phone Number [address] [address] * (ABNORMAL) Urinalysis w/reflex Urine Culture (10/10/2024 1:12 PM EDT) COLOR COLORLESS(A ) Yellow [facility] CLARITY Clear Clear [facility] GLUCOSE 3+(A) Negative [facility] Comment:(>=300 mg/dL) BILI Negative Negative [facility] KETONES Negative Negative [facility] SPECIFIC GRAVITY <1.005 1.001 - 1.035 [facility] BLOOD Negative Negative [facility] PH 7.0 5.0 - 9.0 [facility] Protein-UA Negative Negative [facility] UROBILINOGEN Negative Negative [facility] Negative Negative [facility] Leukocyte esterase, ur Negative Negative [facility] Urine (Urine) 10/10/2024 1:1 2 PM EDT 10/10/2024 5:13 PM EDT Nati Maria MD, PhD URINE ORDERABL ES Final Result [address] [address] * (ABNORMAL) POCT Glucose (10/10/2024 12:10 PM EDT) Glucose, POCT 330(H) 70 - 110 mg/dL [facility] 10/10/2024 12:1 0 PM EDT 10/10/2024 12:16 PM EDT Nati Maria MD, PhD POINT OF CARE TEST ORDERABLES Final Result Performing Organization Address City/[facility]/ZIP Co de Phone Number [address] [address] * (ABNORMAL) POCT Glucose (10/10/2024 9:56 AM EDT) Glucose 206(A) 70 - 100 mg/dL 10/10/2024 9:56 AM EDT us Jamar Walter MD POINT OF CARE TEST ORDERAB LES Final Result * (ABNORMAL) POCT Glucose (10/10/2024 9:51 AM EDT) Glucose, POCT 206(H) 70 - 110 mg/dL [facility] 10/10/2024 9:51 AM EDT 10/10/2024 9:53 AM EDT Nati Maria MD, PhD POINT OF CARE TEST ORDERABLES Final Result [address] [address] * (ABNORMAL) POCT Glucose (10/10/2024 9:23 AM EDT) Glucose 139(A) 70 - 100 mg/dL 10/10/2024 9:23 AM EDT us Liseth Lester PA-C POINT OF CARE TEST ORDERABLE S Final Result * (ABNORMAL) POCT Glucose (10/10/2024 9:22 AM EDT) Glucose, POCT 139(H) 70 - 110 mg/dL [facility] 10/10/2024 9:22 AM EDT 10/10/2024 9:28 AM EDT us Nati Maria MD, PhD POINT OF CARE TEST ORDERABLES Final Result [address] [address] * (ABNORMAL) POCT Glucose (10/09/2024 9:24 PM EDT) Glucose, POCT 413(H) 70 - 110 mg/dL [facility] 10/09/2024 9:24 PM EDT 10/09/2024 9:29 PM EDT Brendan Leonard MD POINT OF CARE TEST ORDERABLES Fi nal Result [address] [address] * (ABNORMAL) POCT Glucose (10/09/2024 6:37 PM EDT) Glucose, POCT 379(H) 70 - 110 mg/dL [facility] 10/09/2024 6:37 PM EDT 10/09/2024 6:39 PM EDT us Allison Castillo MD POINT OF CARE TEST ORDERABLES Fi nal Result [address] [address] * (ABNORMAL) POCT Glucose (10/09/2024 3:51 PM EDT) Glucose, POCT 465(H) 70 - 110 mg/dL [facility] 10/09/2024 3:51 PM EDT 10/09/2024 6:36 PM EDT Allison Castillo MD POINT OF CARE TEST ORDERABLES Fi nal Result Performing Organization Address City/[facility] Co de Phone Number [address] [address] * (ABNORMAL) POCT Glucose (10/09/2024 1:47 PM EDT) Glucose, POCT 338(H) 70 - 110 mg/dL [facility] 10/09/2024 1:47 PM EDT 10/09/2024 1:49 PM EDT Ruthy Miller MD, MPH POINT OF CARE TEST ORD ERABLES Final Result Performing Organization Address [facility] Co de Phone Number [address] [address] * (ABNORMAL) POCT Glucose (10/09/2024 11:02 AM EDT) Glucose 376(A) 70 - 100 mg/dL 10/09/2024 11:0 2 AM EDT Liseth Lester PA-C POINT OF CARE TEST ORDERABLE S Final Result * (ABNORMAL) POCT Glucose (10/09/2024 11:00 AM EDT) Glucose, POCT 376(H) 70 - 110 mg/dL [facility] 10/09/2024 11:0 0 AM EDT 10/09/2024 11:01 AM EDT us Ruthy Miller MD, MPH POINT OF CARE TEST ORD ERABLES Final Result Performing Organization Address City/[facility]/ZIP Co de Phone Number [address] [address] * Ketone bodies, serum (10/09/2024 10:13 AM EDT) BETA HYDROXYBUTYRATE <0.1 <0.4 mmol/L [facility] Blood 10/09/2024 10:1 3 AM EDT 10/09/2024 10:30 AM EDT us Efraín Watts PA-C LAB BLOOD ORDERABLES Final Result Performing Organization Address [facility] Co de Phone Number [address] [address] * (ABNORMAL) Basic metabolic panel (10/09/2024 10:13 AM EDT) SODIUM 132(L) 135 - 145 mmol/L [facility] POTASSIUM 4.3 3.4 - 5.0 mmol/L [facility] CHLORIDE 99 98 - 108 mmol/L [facility] CO2 24 23 - 32 mmol/L [facility] BUN 13 8 - 25 mg/dL [facility] CREATININE 0.85 0.50 - 1.00 mg/dL [facility] GLUCOSE 352(H) 70 - 110 mg/dL [facility] CALCIUM 8.0(L) 8.5 - 10.5 mg/dL [facility] EGFR 85 >59 mL/min/1. 73m2 [facility] Comment:Estimated glomerular filtration rate calculated using the CKD-EPI refit equation. ANION GAP 9 3 - 17 mmol/L [facility] Blood 10/09/2024 10:1 3 AM EDT 10/09/2024 10:30 AM EDT us Jamar Walter MD LAB BLOOD ORDERABLES Final Result Performing Organization Address City/[facility]/ZIP Co de Phone Number [address] [address] * (ABNORMAL) POCT Glucose (10/09/2024 8:17 AM EDT) Glucose 311(A) 70 - 100 mg/dL 10/09/2024 8:17 AM EDT Liseth Lester PA-C POINT OF CARE TEST ORDERABLE S Final Result * (ABNORMAL) POCT Glucose (10/09/2024 8:14 AM EDT) Glucose, POCT 311(H) 70 - 110 mg/dL [facility] 10/09/2024 8:14 AM EDT 10/09/2024 8:16 AM EDT Jamar Walter MD POINT OF CARE TEST ORDERAB LES Final Result [address] [address] * (ABNORMAL) POCT Glucose (10/09/2024 6:07 AM EDT) Glucose, POCT 430(H) 70 - 110 mg/dL [facility] 10/09/2024 6:07 AM EDT 10/09/2024 6:10 AM EDT Lambert Mesa MD POINT OF CARE TEST OR DERABLES Final Result [address] [address] * (ABNORMAL) Basic metabolic panel (10/09/2024 5:17 AM EDT) SODIUM 131(L) 135 - 145 mmol/L [facility] POTASSIUM 5.0 3.4 - 5.0 mmol/L [facility] CHLORIDE 97(L) 98 - 108 mmol/L [facility] CO2 23 23 - 32 mmol/L [facility] BUN 15 8 - 25 mg/dL [facility] CREATININE 0.89 0.50 - 1.00 mg/dL [facility] GLUCOSE 517(HH) 70 - 110 mg/dL [facility] CALCIUM 8.0(L) 8.5 - 10.5 mg/dL [facility] EGFR 80 >59 mL/min/1. 73m2 [facility] Comment:Estimated glomerular filtration rate calculated using the CKD-EPI refit equation. ANION GAP 11 3 - 17 mmol/L [facility] Blood 10/09/2024 5:17 AM EDT 10/09/2024 5:56 AM EDT Jamar Walter MD LAB BLOOD ORDERABLES Final Result [address] [address] * (ABNORMAL) Ketone bodies, serum (10/09/2024 5:17 AM EDT) BETA HYDROXYBUTYRATE 0.8(H) <0.4 mmol/L [facility] Blood 10/09/2024 5:17 AM EDT 10/09/2024 5:57 AM EDT Jamar Walter MD LAB BLOOD ORDERABLES Final Result Performing Organization Address [facility]/ZIP Co de Phone Number [address] [address] * (ABNORMAL) POCT Glucose (10/09/2024 5:02 AM EDT) Glucose, POCT 461(H) 70 - 110 mg/dL [facility] 10/09/2024 5:02 AM EDT 10/09/2024 5:04 AM EDT Lambert Mesa MD POINT OF CARE TEST OR DERABLES Final Result Performing Organization Address [facility]/ZIP Co de Phone Number [address] [address] * (ABNORMAL) Urinalysis w/reflex Urine Culture (10/09/2024 4:19 AM EDT) COLOR Yellow Yellow [facility] CLARITY Clear Clear [facility] GLUCOSE 3+(A) Negative [facility] Comment:(>=300 mg/dL) BILI Negative Negative [facility] KETONES 1+(A) Negative [facility] SPECIFIC GRAVITY 1.027 1.001 - 1.035 [facility] BLOOD Negative Negative [facility] PH 5.5 5.0 - 9.0 [facility] Protein-UA Negative Negative [facility] UROBILINOGEN Negative Negative [facility] NITR[facility] Negative Negative [facility] Leukocyte esterase, ur Negative Negative [facility] Urine (Urine) 10/09/2024 4:1 9 AM EDT 10/09/2024 4:30 AM EDT us Jamar Wlater MD URINE ORDERABLES Final Res ult Performing Organization Address City/[facility]/ZIP Co de Phone Number [address] [address] * POCT Glucose (10/08/2024 9:37 PM EDT) Glucose 98 70 - 100 mg/dL 10/08/2024 9:37 PM EDT Liseth Lester PA-C POINT OF CARE TEST ORDERABLE S Final Result * POCT Glucose (10/08/2024 9:36 PM EDT) Glucose, POCT 98 70 - 110 mg/dL [facility] 10/08/2024 9:36 PM EDT 10/08/2024 9:38 PM EDT Lambert Mesa MD POINT OF CARE TEST OR DERABLES Final Result Performing Organization Address City/[facility]/ZIP Co de Phone Number [address] [address] [address] * POCT Glucose (10/08/2024 8:12 PM EDT) Glucose, POCT 100 70 - 110 mg/dL [facility] 10/08/2024 8:12 PM EDT 10/08/2024 8:14 PM EDT Lambert Mesa MD POINT OF CARE TEST OR DERABLES Final Result Performing Organization Address [facility] Co de Phone Number [address] [address] * HCG, urine (10/08/2024 7:49 PM EDT) URINE TEST Negative Negative [facility] Urine (Urine) 10/08/2024 7:4 9 PM EDT 10/08/2024 8:20 PM EDT Liseth Lester PA-C URINE ORDERABLES Final Resul t Performing Organization Address [facility] Co de Phone Number [address] [address] * Toxicology screen, urine (10/08/2024 7:49 PM EDT) URINE AMPHETAMINES Negative Negative [facility] URINE BENZODIAZEPINE Negative Negative [facility] URINE COCAINE METAB Negative Negative [facility] URINE OPIATES Negative Negative [facility] Comment:This assay is not se nsitive for detection of oxycodone and oxymorphone. URINE OXYCODONE Negative Negative [facility] Fentanyl, urine Negative Negative [facility] URINE CREATININE 24 mg/dL [facility] Urine (Urine) 10/08/2024 7:4 9 PM EDT 10/08/2024 8:20 PM EDT us Liseth Lester PA-C URINE ORDERABLES Final Resul t Performing Organization Address [facility] Co de Phone Number [address] [address] * Ethanol, blood (10/08/2024 5:56 PM EDT) ETHANOL Negative Negative mg/dL [facility] Blood 10/08/2024 5:56 PM EDT 10/08/2024 6:09 PM EDT us Liseth STATON-C LAB BLOOD ORDERABLES Final R esult [facility] [address] [place] [address] * LFTs (hepatic panel) (10/08/2024 5:56 PM EDT) ALBUMIN 3.9 3.3 - 5.0 g/dL [facility] TOTAL BILIRUBIN 0.7 0.0 - 1.0 mg/dL [facility] DIRECT BILIRUBIN 0.3 0.0 - 0.3 mg/dL [facility] ALKALINE PHOSPHATASE 49 30 - 100 U/L [facility] AST 14 9 - 32 U/L [facility] ALT 12 7 - 33 U/L [facility] TOTAL PROTEIN 6.3 6.0 - 8.3 g/dL [facility] GLOBULIN 2.4 1.9 - 4.1 g/dL [facility] Blood 10/08/2024 5:56 PM EDT 10/08/2024 6:08 PM EDT Liseth Lester PA-C LAB BLOOD ORDERABLES Final R esult [facility] [address] [place] [address] * (ABNORMAL) Basic metabolic panel (10/08/2024 5:56 PM EDT) SODIUM 138 135 - 145 mmol/L [facility] POTASSIUM 3.7 3.4 - 5.0 mmol/L [facility] CHLORIDE 104 98 - 108 mmol/L [facility] CO2 27 23 - 32 mmol/L [facility] BUN 14 8 - 25 mg/dL [facility] CREATININE 0.78 0.50 - 1.00 mg/dL [facility] GLUCOSE 125(H) 70 - 110 mg/dL [facility] CALCIUM 8.8 8.5 - 10.5 mg/dL [facility] EGFR 94 >59 mL/min/1. 73m2 [facility] Comment:Estimated glomerular filtration rate calculated using the CKD-EPI refit equation. ANION GAP 7 3 - 17 mmol/L [facility] Blood 10/08/2024 5:56 PM EDT 10/08/2024 6:08 PM EDT us Liseth Lester PA-C LAB BLOOD ORDERABLES Final R esult [facility] [address] [place] [address] * (ABNORMAL) CBC and differential (10/08/2024 5:56 PM EDT) WBC 9.62 4.00 - 11.00 K/uL [facility] RBC 3.92(L) 4.00 - 5.20 M/uL [facility] HGB 12.4 12.0 - 16.0 g/dL [facility] HCT 37.0 36.0 - 46.0 % [facility] PLT 209 150 - 450 K/uL [facility] MCV 94.4 80.0 - 100.0 fL [facility] MCH 31.6(H) 27.0 - 31.0 pg [facility] MCHC 33.5 32.0 - 36.0 g/dL [facility] RDW 12.8 11.5 - 14.5 % [facility] MPV 9.7 8.4 - 12.0 fL [facility] NRBC 0.00 0.00 /100 WBCs [facility] ABSOLUTE NRBC 0.00 0.00 K/uL [facility] DIFF [employer] [facility] NEUTS 61.9 48.0 - 76.0 % [facility] LYMPHS 28.5 18.0 - 41.0 % [facility] MONOS 5.3 4.0 - 11.0 % [facility] EOS 3.2 0.0 - 5.0 % [facility] BASOS 0.8 0.0 - 1.5 % [facility] % IMMATURE GRANS 0.3 0.0 - 0.9 % [facility] ABSOLUTE NEUTS 5.95 1.92 - 7.60 K/uL [facility] ABSOLUTE LYMPHS 2.74 0.72 - 4.10 K/uL [facility] ABSOLUTE MONOS 0.51 0.16 - 1.10 K/uL [facility] ABSOLUTE EOS 0.31 0.00 - 0.50 K/uL [facility] ABSOLUTE BASOS 0.08 0.00 - 0.15 K/uL [facility] ABS IMMATURE GRANS 0.03 0.00 - 0.09 K/uL [facility] Blood 10/08/2024 5:56 PM EDT 10/08/2024 6:09 PM EDT Liseth Lester PA-C LAB BLOOD ORDERABLES Final R esult [facility] [address] [place] [address] documented in this encounter Visit Diagnoses Diagnosis Paranoia- Primary Delusional disorder Suicidal ideations Type 1 diabetes mellitus with other specified complication documented in this encounter Admitting Diagnoses Diagnosis Paranoia Delusional disorder documented in this encounter Administered Medications Inactive Administered Medications - up to 3 most recent administrations Medication Order MAR Action Action Date Dose Rate Site aluminum-magnesium hydroxide-simethicone (MAALOX) 200-200-20 mg/5 mL oral suspension 30 mL 30 mL, Oral, 3 times daily PRN, indigestion, heartburn, Starting on Dali 10/12/24 at 1423, Shake Well Given 10/12/2024 2:32 PM EDT 30 mL dextrose (D50W) 50 % syringe 0-25 g 0-25 g, Intravenous, As needed, low blood sugar (provide value), see administration instructions, Starting on 10/08/24 at 2002, If unable to take PO and: Blood glucose less than 50 mg/dL or impaired consciousness, give 25 g (full amp). Blood glucose 50-69 mg/dL, give 12.5 g (half amp) call RC. Recheck blood glucose in 15 minutes and repeat prn. dextrose (D50W) 50 % syringe 12.5-25 g 12.5-25 g, Intravenous, Once as needed, low blood sugar (provide value), <70 if not taking PO glucose, Starting on 10/09/24 at 0515, For 1 dose, If unable to take PO and: Blood glucose less than 50 mg/dL or impaired consciousness, give 25 g (full amp). Blood glucose 50-69 mg/dL, give 12.5 g (half amp). Recheck blood glucose in 15 minutes and repeat prn. docusate sodium (COLACE) capsule 100 mg 100 mg, Oral, Once, On 10/09/24 at 1145, For 1 dose Given 10/09/2024 11:43 AM EDT 100 mg docusate sodium (COLACE) capsule 100 mg 100 mg, Oral, Once, On Wed10/11/24 at 1430, For 1 dose Given 10/11/2024 2:23 PM EDT 100 mg FLUoxetine (PROzac) capsule 60 mg 60 mg, Oral, Daily, First dose on Wed10/09/24 at 0900 Given 10/13/2024 9:44 AM EDT 60 mg Given 10/12/2024 9:52 AM EDT 60 mg Given 10/11/2024 8:12 AM EDT 60 mg hydrOXYzine (ATARAX) tablet 25 mg 25 mg, Oral, Every 4 hours PRN, anxiety, Starting on Wed10/09/24 at 1608 Given 10/13/2024 4:29 AM EDT 25 mg Given 10/12/2024 3:42 AM EDT 25 mg insulin glargine (LANTUS) subcutaneous injection 10 Units 10 Units, Subcutaneous, Nightly insulin, First dose (after last modification) on Wed10/13/24 at 2100, If NPO: Give 8 units. DO NOT hold Lantus insulin for type 1 diabetes. Given 10/13/2024 8:46 PM EDT 10 Units Right Arm insulin glargine (LANTUS) subcutaneous injection 15 Units 15 Units, Subcutaneous, Nightly insulin, First dose on Wed10/10/24 at 2200, If NPO: Give 12 units. DO NOT hold Lantus insulin for type 1 diabetes. Given 10/12/2024 9:51 PM EDT 12 Units Right Arm Given 10/11/2024 9:23 PM EDT 15 Units Le ft Arm Given 10/10/2024 9:23 PM EDT 15 Units Ot her insulin glargine (LANTUS) subcutaneous injection 18 Units 18 Units, Subcutaneous, Once, Indications: give now, keepinsulin pump on for 2 hours then remove pump, On Wed10/08/24 at 2015, For 1 dose, This is a ONE TIME Insulin Order. For blood glucose < 70 mg/dL call RC AND if patient: 1. Able to take PO, give 15 g of carbohydrate (4 oz fruit juice, regular soda, 8 oz of skim milk, or 3 to 4 glucose tablets) 2. Unable to take PO and IV PRESENT, administer D50W per prn medication order OR 3. Unable to take PO and NO IV, call RC/WICK TENDER to obtain order for glucagon Check blood glucose in 15 minutes and repeat if < 80 mg/dL and call RC, Insulin type: One-time insulinIndications:give now, keepinsulin pump on for 2 hours then remove pump Given 10/08/2024 8:26 PM EDT 18 Units Left Arm insulin glargine (LANTUS) subcutaneous injection 18 Units 18 Units, Subcutaneous, Nightly insulin, Indications: give now, keepinsulin pump on for 2 hours then remove pump, First dose (after last reorder) on Wed10/09/24 at 2200, This is a ONE TIME Insulin Order. For blood glucose < 70 mg/dL call RC AND if patient: 1. Able to take PO, give 15 g of carbohydrate (4 oz fruit juice, regular soda, 8 oz of skim milk, or 3 to 4 glucose tablets) 2. Unable to take PO and IV PRESENT, administer D50W per prn medication order OR 3. Unable to take PO and NO IV, call RC/WICK TENDER to obtain order for glucagon Check blood glucose in 15 minutes and repeat if < 80 mg/dL and call RC, Insulin type: One-time insulinIndications:give now, keepinsulin pump on for 2 hours then remove pump Given 10/09/2024 9:21 PM EDT 18 Units Left Arm insulin lispro (ADMELOG, HumaLOG) subcutaneous injection 0-6 Units 0-6 Units, Subcutaneous, 3 times daily with meals, First dose on Wed10/09/24 at 1900, CORRECTIONAL INSULIN starting when glucose at 180 mg/dL TID before meals. DO NOT use at bedtime : Give even if patient is NPO/not receiving nutrition. Low dose Blood glucose (mg/dL): Insulin dose Glucose 180-240: 2 units. Glucose 241-300: 3 units. Glucose 301-350: 4 units. Glucose 351-400: 5 units. Glucose >400: 6 units and call RC. For blood glucose < 70 mg/dL call RC AND if patient: 1. Able to take PO, give 15 g of carbohydrate (4 oz fruit juice, regular soda, 8 oz of skim milk, or 3 to 4 glucose tablets) 2. Unable to take PO and PIV PRESENT, administer D50W per prn medication order OR 3. Unable to take PO and NO PIV, call RC/WICK TENDER to obtain order for glucagon Check blood glucose in 15 minutes and repeat if < 80 mg/dL and call RC, Insulin type: Correctional insulin Given 10/13/2024 1:31 PM EDT 5 Units Left Arm Given 10/09/2024 7:01 PM EDT 5 Units Le ft Arm insulin lispro (ADMELOG, HumaLOG) subcutaneous injection 1-2 Units 1-2 Units, Subcutaneous, 2 times daily with meals, First dose on Wed10/09/24 at 0800, NUTRITIONAL INSULIN: HOLD if patient is NPO/not receiving nutrition. Do not hold correctional insulin. ONE unit lispro 15/grams of carbs Sliding scale lispro at meals no AC (not at bedtime) Custom slidin-250 she gets 1 unit lispro 251-350 she gets 2 units , Insulin type: Nutritional insulin Given 10/09/2024 8:46 AM EDT 2 Units Left Lower Abdomen insulin lispro (ADMELOG, HumaLOG) subcutaneous injection 2 Units 2 Units, Subcutaneous, Nightly, First dose on Wed10/11/24 at 2100, NUTRITIONAL INSULIN: HOLD if patient is NPO not eating bedtime snack., Insulin type: Nutritional insulin Given 10/11/2024 8:59 PM EDT 2 Units Right Arm insulin lispro (ADMELOG, HumaLOG) subcutaneous injection 2 Units 2 Units, Subcutaneous, Once, On Wed10/13/24 at 2115, For 1 dose, This is a ONE TIME Insulin Order. For blood glucose < 70 mg/dL call RC AND if patient: 1. Able to take PO, give 15 g of carbohydrate (4 oz fruit juice, regular soda, 8 oz of skim milk, or 3 to 4 glucose tablets) 2. Unable to take PO and IV PRESENT, administer D50W per prn medication order OR 3. Unable to take PO and NO IV, call RC/WICK TENDER to obtain order for glucagon Check blood glucose in 15 minutes and repeat if < 80 mg/dL and call RC, Insulin type: One-time insulin Given 10/13/2024 9:21 PM EDT 2 Units Left Arm insulin lispro (ADMELOG, HumaLOG) subcutaneous injection 3 Units 3 Units, Subcutaneous, Once, On Wed10/09/24 at 0530, For 1 dose, This is a ONE TIME Insulin Order. For blood glucose < 70 mg/dL call RC AND if patient: 1. Able to take PO, give 15 g of carbohydrate (4 oz fruit juice, regular soda, 8 oz of skim milk, or 3 to 4 glucose tablets) 2. Unable to take PO and IV PRESENT, administer D50W per prn medication order OR 3. Unable to take PO and NO IV, call RC/WICK TENDER to obtain order for glucagon Check blood glucose in 15 minutes and repeat if < 80 mg/dL and call RC, Insulin type: One-time insulin Given 10/09/2024 5:30 AM EDT 3 Units Left Arm insulin lispro (ADMELOG, HumaLOG) subcutaneous injection 3 Units 3 Units, Subcutaneous, 3 times daily with meals, First dose (after last modification) on Wed10/13/24 at 1900, NUTRITIONAL INSULIN: Please allow patient to choose lower insulin dose if she is eating less (based on carbs content of the meal) HOLD if NPO/ not receiving nutrition. Do not hold correctional insulin. , Insulin type: Nutritional insulin Given 10/13/2024 7:08 PM EDT 2 Units Left Arm insulin lispro (ADMELOG, HumaLOG) subcutaneous injection 5 Units 5 Units, Subcutaneous, 3 times daily with meals, First dose (after last modification) on Wed10/10/24 at 0945, NUTRITIONAL INSULIN: Please allow patient to choose lower insulin dose if she is eating less (based on carbs content of the meal) HOLD if NPO/ not receiving nutrition. Do not hold correctional insulin. , Insulin type: Nutritional insulin Given 10/13/2024 1:32 PM EDT 5 Units Left Arm Given 10/12/2024 6:54 PM EDT 2 Units Le ft Arm Given 10/12/2024 1:39 PM EDT 5 Units Le ft Arm insulin lispro (ADMELOG, HumaLOG) subcutaneous injection 5 Units 5 Units, Subcutaneous, Daily with breakfast, First dose on Dali 10/12/24 at 1000, For 1 dose, NUTRITIONAL INSULIN: HOLD if patient is NPO/not receiving nutrition. Do not hold correctional insulin., Insulin type: Nutritional insulin Given 10/12/2024 10:08 AM EDT 5 Units Left Lower Abdomen lactated ringers IV Bolus 1,000 mL 1,000 mL, Intravenous, Administer over 30 Minutes, Once, On Wed10/09/24 at 0300, For 1 dose New Bag 10/09/2024 3:12 AM EDT 1,000 mL 2000 mL/hr lactated ringers IV Bolus 1,000 mL 1,000 mL, Intravenous, Administer over 30 Minutes, Once, On Wed10/09/24 at 0430, For 1 dose New Bag 10/09/2024 4:28 AM EDT 1,000 mL 2000 mL/hr LORazepam (ATIVAN) tablet 0.5 mg 0.5 mg, Oral, Once, On Wed10/08/24 at 2300, For 1 dose Given 10/08/2024 11:01 PM EDT 0.5 mg LORazepam (ATIVAN) tablet 1 mg 1 mg, Oral, 2 times daily, First dose (after last modification) on Wed10/09/24 at 1130 Given 10/13/2024 8:00 PM EDT 1 mg Given 10/13/2024 9:44 AM EDT 1 mg Given 10/12/2024 9:52 PM EDT 1 mg LORazepam (ATIVAN) tablet 1 mg 1 mg, Oral, Once, On Dali 10/12/24 at 0430, For 1 dose Given 10/12/2024 4:22 AM EDT 1 mg melatonin tablet 10 mg 10 mg, Oral, Nightly, First dose (after last modification) on Wed10/09/24 at 2100 Given 10/13/2024 8:01 PM EDT 10 mg Given 10/12/2024 9:51 PM EDT 10 mg Given 10/11/2024 8:57 PM EDT 10 mg ondansetron (ZOFRAN-ODT) disintegrating tablet 4 mg 4 mg, Oral, Once, On Wed10/08/24 at 2230, For 1 dose, Do not remove from blister until needed. Peel backing off the blister, do not push tablet through. Using dry hands, place tablet on tongue and allow to dissolve. Swallow with saliva. Given 10/08/2024 10:39 PM EDT 4 mg ondansetron (ZOFRAN-ODT) disintegrating tablet 4 mg 4 mg, Oral, Every 8 hours PRN, nausea, vomiting, Starting on Wed10/10/24 at 1001, Do not remove from blister until needed. Peel backing off the blister, do not push tablet through. Using dry hands, place tablet on tongue and allow to dissolve. Swallow with saliva. Given 10/12/2024 4:22 AM EDT 4 mg Given 10/10/2024 8:17 PM EDT 4 mg polyethylene glycol packet 17 g, Oral, Daily as needed, mild constipation, Starting on Wed10/11/24 at 1421, Dissolve and stir one packet of powder (17 g) in 4-8 oz of water or juice. polyethylene glycol packet 17 g, Oral, Once, On Dali 10/12/24 at 0430, For 1 dose, Dissolve and stir one packet of powder (17 g) in 4-8 oz of water or juice. Given 10/12/2024 4:27 AM EDT 17 g traZODone (DESYREL) tablet 50 mg 50 mg, Oral, Nightly, First dose on Wed10/08/24 at 2345 Given 10/13/2024 8:00 PM EDT 50 mg Given 10/12/2024 9:52 PM EDT 50 mg Given 10/11/2024 8:57 PM EDT 50 mg documented in this encounter Active and Recently Administered Medications Times are shown in EDT. Scheduled Medication Order 10/11/2024 10/12/2024 10/13/2024 docusate sodium (COLACE) capsule 100 mg (COMPLETED) 100 mg, Oral, Once, On Wed10/11/24 at 1430, For 1 dose 1423 (Given - Provider: Daphney Sales RN) FLUoxetine (PROzac) capsule 60 mg 60 mg, Oral, Daily, First dose on Wed10/09/24 at 0900 0812 (Given - Provider: Daphney Sales RN) 0952 (Given - Provider: Ilsa Perez RN) 0944 (Given - Provider: Sophia Hansen RN) insulin glargine (LANTUS) subcutaneous injection 10 Units 10 Units, Subcutaneous, Nightly insulin, First dose (after last modification) on Wed10/13/24 at 2100, If NPO: Give 8 units. DO NOT hold Lantus insulin for type 1 diabetes. 2045 (Given - Provider: Grecia Padilla, DIMITRIS) insulin glargine (LANTUS) subcutaneous injection 15 Units (CANCELED) 15 Units, Subcutaneous, Nightly insulin, First dose on Wed10/10/24 at 2200, If NPO: Give 12 units. DO NOT hold Lantus insulin for type 1 diabetes. 2122 (Given - Provider: Grecia Padilla RN) 2150 (Given - Provider: Grecia Padilla RN - Comment: ok to give 12 units per RC Jesus) insulin lispro (ADMELOG, HumaLOG) subcutaneous injection 0-6 Units 0-6 Units, Subcutaneous, 3 times daily with meals, First dose on Wed10/09/24 at 1900, CORRECTIONAL INSULIN starting when glucose at 180 mg/dL TID before meals. DO NOT use at bedtime : Give even if patient is NPO/not receiving nutrition. Low dose Blood glucose (mg/dL): Insulin dose Glucose 180-240: 2 units. Glucose 241-300: 3 units. Glucose 301-350: 4 units. Glucose 351-400: 5 units. Glucose >400: 6 units and call RC. For blood glucose < 70 mg/dL call RC AND if patient: 1. Able to take PO, give 15 g of carbohydrate (4 oz fruit juice, regular soda, 8 oz of skim milk, or 3 to 4 glucose tablets) 2. Unable to take PO and PIV PRESENT, administer D50W per prn medication order OR 3. Unable to take PO and NO PIV, call RC/WICK TENDER to obtain order for glucagon Check blood glucose in 15 minutes and repeat if < 80 mg/dL and call RC, Insulin type: Correctional insulin 0822 (Not Given - Provider: Daphney Sales RN - Reason: Order parameters not met - Comment: blood sugar [phone] (Not Given - Provider: Daphney Sales RN - Reason: Patient/family refused)1853 (Not Given - Provider: Grecia Padilla RN - Reason: Contraindicated) 0904 (Not Given - Provider: Ilsa Perez RN - Reason: Order parameters not met - Comment: Blood glucose: 58. RC Citlali Reno [employer] TECHNICIAN aware)1337 (Not Given - Provider: Ilsa Perez RN - Reason: Contraindicated)1849 (Not Given - Provider: Grecia Padilla RN - Reason: Contraindicated) 0903 (Not Given - Provider: Sophia Hansen RN - Reason: Order parameters not met - Comment: 68)[phone] (Given - Provider: Sophia Hansen RN)1851 (Not Given - Provider: Grecia Padilla RN - Reason: Contraindicated) insulin lispro (ADMELOG, HumaLOG) subcutaneous injection 2 Units (CANCELED) 2 Units, Subcutaneous, Nightly, First dose on Wed10/11/24 at 2100, NUTRITIONAL INSULIN: HOLD if patient is NPO not eating bedtime snack., Insulin type: Nutritional insulin 2058 (Given - Provider: Grecia Padilla, DIMITRIS - Comment: Given with snack per order) insulin lispro (ADMELOG, HumaLOG) subcutaneous injection 2 Units (COMPLETED) 2 Units, Subcutaneous, Once, On Wed10/13/24 at 2115, For 1 dose, This is a ONE TIME Insulin Order. For blood glucose < 70 mg/dL call RC AND if patient: 1. Able to take PO, give 15 g of carbohydrate (4 oz fruit juice, regular soda, 8 oz of skim milk, or 3 to 4 glucose tablets) 2. Unable to take PO and IV PRESENT, administer D50W per prn medication order OR 3. Unable to take PO and NO IV, call RC/WICK TENDER to obtain order for glucagon Check blood glucose in 15 minutes and repeat if < 80 mg/dL and call RC, Insulin type: One-time insulin 2120 (Given - Provider: Grecia Padilla RN) insulin lispro (ADMELOG, HumaLOG) subcutaneous injection 3 Units 3 Units, Subcutaneous, 3 times daily with meals, First dose (after last modification) on Wed10/13/24 at 1900, NUTRITIONAL INSULIN: Please allow patient to choose lower insulin dose if she is eating less (based on carbs content of the meal) HOLD if NPO/ not receiving nutrition. Do not hold correctional insulin. , Insulin type: Nutritional insulin 1907 (Given - Provider: Grecia Padilla RN) insulin lispro (ADMELOG, HumaLOG) subcutaneous injection 5 Units (CANCELED) 5 Units, Subcutaneous, 3 times daily with meals, First dose (after last modification) on Wed10/10/24 at 0945, NUTRITIONAL INSULIN: Please allow patient to choose lower insulin dose if she is eating less (based on carbs content of the meal) HOLD if NPO/ not receiving nutrition. Do not hold correctional insulin. , Insulin type: Nutritional insulin 0911 (Given - Provider: Daphney Sales RN)1336 (Given - Provider: Daphney Sales RN)1900 (Given - Provider: Grecia Padilla RN - Comment: (Pt able to choose fewer than 5 units per order)) 0905 (Not Given - Provider: Ilsa Perez RN - Reason: Order parameters not met - Comment: Blood glucose: 58. RC Citlali Shadia [employer] TECHNICIAN aware)1339 (Given - Provider: Ilsa Perez RN)1854 (Given - Provider: Grecia Padilla RN - Comment: Pt able to choose fewer than 5 units based on carb content of meal per order) 1036 (Not Given - Provider: Sophia Hansen RN - Reason: Order parameters not met - Comment: FS 70 only took few bites breakfast)1332 (Given - Provider: Sophia Hansen RN) insulin lispro (ADMELOG, HumaLOG) subcutaneous injection 5 Units (COMPLETED) 5 Units, Subcutaneous, Daily with breakfast, First dose on Dali 10/12/24 at 1000, For 1 dose, NUTRITIONAL INSULIN: HOLD if patient is NPO/not receiving nutrition. Do not hold correctional insulin., Insulin type: Nutritional insulin 1008 (Given - Provider: Ilsa Perez RN) LORazepam (ATIVAN) tablet 1 mg 1 mg, Oral, 2 times daily, First dose (after last modification) on Wed10/09/24 at 1130 0821 (Not Given - Provider: Daphney Sales RN - Reason: Patient/family refused)1658 (Given - Provider: Daphney Sales RN)2055 (Given - Provider: Grecia Padilla RN) 09 (Given - Provider: Ilsa Perez RN)215 (Given - Provider: Grecia Padilla, DIMITRIS) 0944 (Given - Provider: Sophia Hansen RN)1999 (Given - Provider: Grecia Padilla, DIMITRIS) LORazepam (ATIVAN) tablet 1 mg (COMPLETED) 1 mg, Oral, Once, On Wed10/12/24 at 0430, For 1 dose 421 (Given - Provider: Grecia Padilla, DIMITRIS) melatonin tablet 10 mg 10 mg, Oral, Nightly, First dose (after last modification) on Wed10/09/24 at 2100 2056 (Given - Provider: Grecia Padilla, DIMITRIS) 2150 (Given - Provider: Grecia Padilla, DIMITRIS) 2000 (Given - Provider: Grecia Padilla, DIMITRIS) ondansetron (PF) (ZOFRAN) injection 4 mg 4 mg, Intravenous, Once, On Wed10/09/24 at 0300, For 1 dose polyethylene glycol packet 17 g, Oral, Once, On Wed10/09/24 at 1145, For 1 dose, Dissolve and stir one packet of powder (17 g) in 4-8 oz of water or juice. polyethylene glycol packet (COMPLETED) 17 g, Oral, Once, On Wed10/12/24 at 0430, For 1 dose, Dissolve and stir one packet of powder (17 g) in 4-8 oz of water or juice. 426 (Given - Provider: Grecia Padilla RN) traZODone (DESYREL) tablet 50 mg 50 mg, Oral, Nightly, First dose on Wed10/08/24 at 2345 2056 (Given - Provider: Grecia Padilla RN) 2151 (Given - Provider: Grecia Padilla, DIMITRIS) 1999 (Given - Provider: Grecia Padilla, DIMITRIS) PRN Medication Order 10/11/2024 10/12/2024 10/13/2024 aluminum-magnesium hydroxide-simethicone (MAALOX) 200-200-20 mg/5 mL oral suspension 30 mL 30 mL, Oral, 3 times daily PRN, indigestion, heartburn, Starting on Wed10/12/24 at 1423, Shake Well 1432 (Given - Provider: Annabelle Michel RN) dextrose (D50W) 50 % syringe 0-25 g 0-25 g, Intravenous, As needed, low blood sugar (provide value), see administration instructions, Starting on Wed10/08/24 at 2001, If unable to take PO and: Blood glucose less than 50 mg/dL or impaired consciousness, give 25 g (full amp). Blood glucose 50-69 mg/dL, give 12.5 g (half amp) call RC. Recheck blood glucose in 15 minutes and repeat prn. dextrose (D50W) 50 % syringe 12.5-25 g 12.5-25 g, Intravenous, Once as needed, low blood sugar (provide value), <70 if not taking PO glucose, Starting on Wed10/09/24 at 0515, For 1 dose, If unable to take PO and: Blood glucose less than 50 mg/dL or impaired consciousness, give 25 g (full amp). Blood glucose 50-69 mg/dL, give 12.5 g (half amp). Recheck blood glucose in 15 minutes and repeat prn. hydrOXYzine (ATARAX) tablet 25 mg 25 mg, Oral, Every 4 hours PRN, anxiety, Starting on Wed10/09/24 at 1608 0342 (Given - Provider: Grecia Padilla, RN) 0429 (Given - Provider: Grecia Padilla, RN) ondansetron (ZOFRAN-ODT) disintegrating tablet 4 mg 4 mg, Oral, Every 8 hours PRN, nausea, vomiting, Starting on Wed10/10/24 at 1001, Do not remove from blister until needed. Peel backing off the blister, do not push tablet through. Using dry hands, place tablet on tongue and allow to dissolve. Swallow with saliva. 0422 (Given - Provider: Grecia Padilla, RN) polyethylene glycol packet 17 g, Oral, Daily as needed, mild constipation, Starting on Wed10/11/24 at 1421, Dissolve and stir one packet of powder (17 g) in 4-8 oz of water or juice. documented in this encounter Additional Health Concerns Assessment Noted Time PHQ-9 Depression Total Score: 0 08/27/19 23 7:30 AM EDT PHQ-2 Depression Total Score: 0 02/13/20 24 4:51 PM EST documented as of this encounter Care Teams Game Master Relationship Specialty Start Date End Date Manda Dorantes MD, MPH [address] [place] [address] [email or web address] PCP - General Internal Medicine 01/01/17 documented as of this encounter Additional Source Comments The information contained in this document represents components of the legal health record. It is not the complete legal health record.[facility]
--- OUTSIDE RECORDS SUMMARY | 2024-10-14 01:22 | XMS_ITS | Encounter Summary ---
Author Organization [facility] Address [address] [place] [address] Phone Care Team Providers Care Executive Director Of Nursing Name Role Phone Manda Dorantes MD, MPH Primary Care Provider [phone] Manda Dorantes MD, MPH Unavailable [phone] Reason for Visit * Reason Comments Medication Refill Encounter Details Date Type Department Care Team (Late st Contact Info) Description 12/10/2022 Refill [facility] [address] [facility], [address] [place] [address] Trevon Sierra MD 55 [facility] [address] [place] [address] [email or web address] Medication Refill Social History Tobacco Use Types Packs/Day Years Used Date Smoking Tobacco: Former Cigarettes 0.5 7 2 008 - 2015 Smokeless Tobacco: Former Quit: 2007 Alcohol Use Standard Drinks/Week Comments Yes 0 (1 standard drink = 0.6 oz pur e alcohol) rarely Child or Family Care Answer Date Record ed Do you have problems with on e of the following making it difficult for you to work, study, or receive health care? No 06/28/2018 Education Answer Date Recorded Are you interested in more education? Not on nicko e 06/11/2022 Are you concerned about learning? Not on file 06/11/2022 No 06/11/2022 No 06/11/2022 Food Answer Date Recorded Within the past 6 months we worried whether our food would run out before we got money to buy more. Never True 06/28/2018 Within the past 6 months the food we bought just didn't last and we didn't have enough money to get more. Never True 9 Paying for Meds Answer Date Recorded Do you have trouble paying for medicines? No 06/28/2018 Paying Utility Bills Answer Date Record ed Do you have trouble paying your heating or elect ricity bill? No 06/28/2018 Transportation Answer Date Recorded Has the lack of transportati on kept you from medical appointments or from getting medications? No 06/28/2018 Digital Access Answer Date Recorded No 07/07/2022 No 07/07/2022 Reliable internet access at home? Not on file 07/07/2022 Device with a working camera? Not on file Comments No Sex and Gender Information Value Date Recorded Sex Assigned at Female 12/23/2023 7:45 PM EST Legal Sex Female 5:22 PM EST Gender Identity Female 12/23/2023 7:45 PM EST Sexual Orientation Straight 12/23/2023 7: 45 PM EST documented as of this encounter Plan of Treatment Upcoming Encounters Date Type Department Care Team (Late st Contact Info) Description 10/23/2024 8:00 AM EDT Appointment [facility] Nuclear Medicine [address] [place] [address] Tanvi English MD, DrPH [address] [place] [address] [address] [place] [address] [email or web address] 10/24/2024 2:30 PM EDT Telemedicine [facility] [address] [facility], [address] [place] [address] Jeremias Lawrence MD [address] [place] [address] 8 [place] [address] [email or web address] 11/07/2024 9:00 AM EDT Telemedicine [address], [address] [place] [address] Jeremias Lawrence MD [address] [facility] [address] [facility] [address] [facility] 8 [place] [address] [email or web address] 12/13/2024 8:30 AM EDT Telemedicine [facility] Weight Center 50 [facility] [address] [place] [address] Sammy Groves MD 50 [facility], 4th Floor [address] [place] [address] [email or web address] 01/08/2025 12:35 PM EST Office Visit [facility] Diabetes [facility] 50 [facility] [address] [place] [address] Timbo Calle MD [address] [place] [address] [address] [place] [address] [email or web address] documented as of this encounter Visit Diagnoses Diagnosis Recurrent major depressive disorder, in full remission Generalized anxiety disorder documented in this encounter Additional Health Concerns Assessment Noted Time PHQ-9 Depression Total Score: 0 08/27/19 23 7:30 AM EDT PHQ-2 Depression Total Score: 0 08/27/19 23 7:30 AM EDT documented as of this encounter Care Teams Executive Director Of Nursing Relationship Specialty Start Date End Date Manda Dorantes MD, MPH [address] [place] [address] [email or web address] PCP - General Internal Medicine 01/01/17 Manda Dorantes MD, MPH [address] [place] [address] [email or web address] Attributed Provider 03/13/17 06/24/23 documented as of this encounter Additional Source Comments The information contained in this document represents components of the legal health record. It is not the complete legal health record.[facility]
--- OUTSIDE RECORDS SUMMARY | 2024-10-14 01:22 | XMS_ITS | Encounter Summary ---
Author Organization [facility] Address [address] [place] [address] Phone Care Team Providers Care Childcare Aide Name Role Phone Manda Dorantes MD, MPH Primary Care Provider [phone] Manda Dorantes MD, MPH Unavailable [phone] Raoul Nogueira MD Unavailable [phone] Raoul Nogueira MD Unavailable [phone] Encounter Details Date Type Department Care Team (Late st Contact Info) Description 02/10/2021 Ancillary Orders [facility] [address] [facility], [address] [place] [address] Manda Dorantes MD, MPH [address] [place] [address] [email or web address] Social History Tobacco Use Types Packs/Day Years [...] high school, GED, job training, learning the Dutch language, technical skills, or developing parenting skills)? No 06/28/2018 Food Answer Date Recorded Within the past [...] appointments or from getting medications? No 06/28/2018 Comments No Sex and Gender Information Value Date Recorded Sex Assigned at Female 12/23/2023 7:45 PM EST Legal Sex Female 5:22 PM EST Gender Identity Female 12/23/2023 7:45 PM EST Sexual Orientation Straight 12/23/2023 7: 45 PM EST documented as of this encounter Plan of Treatment Upcoming Encounters Date Type Department Care Team (Late st Contact Info) Description 10/23/2024 8:00 AM EDT Appointment [facility] Nuclear Medicine [address] [place] [address] Tanvi English MD, DrPH [address] [place] [address] [email or web address] 10/24/2024 2:30 PM EDT Telemedicine [address], [address] [place] [address] Jeremias Lawrence MD [address] [place] [address] 8 [place] [address] [email or web address] 11/07/2024 9:00 AM EDT Telemedicine [address], [address] [place] [address] Jeremias Lawrence MD [address] [place] [address] 8 [place] [address] [email or web address] 12/13/2024 8:30 AM EDT Telemedicine [facility] Weight Center [address] [place] [address] Sammy Groves MD [address] [facility], 4th Floor [address] [place] [address] [email or web address] 01/08/2025 12:35 PM EST Office Visit [facility] Diabetes Center 50 [facility] [address] [place] [address] Timbo Calle MD [address] [place] [address] [address] [place] [address] [email or web address] documented as of this encounter Visit Diagnoses Not on filedocumented in this encounter Additional Health Concerns Infection Onset Date Last Indicated Resolved Time CoV-Exposed Comment:Recent close contact documented in the Travel/Symptom Screening Form 02/22/2021 02/22/2021 03/09/2021 1:[address] CoV-Presumed 02/22/2021 02/22/2021 03/15/2021 1:22 AM EST CoV-Presumed 08/18/2021 08/18/2021 09/08/2021 1:21 AM EDT Assessment Noted Time PHQ-2 Depression Total Score: 2 04/17/19 18 8:39 AM EST documented as of this encounter Care Teams Childcare Aide Relationship Specialty Start Date End Date Manda Dorantes MD, MPH [address] [place] [address] [email or web address] PCP - General Internal Medicine 01/01/17 Manda Dorantes MD, MPH [address] [place] [address] [email or web address] Partners Attributed Provider 03/13/17 06/24/23 Raoul Nogueira MD 50 [place] [address] [email or web address] Insurance Assigned Provider 01/31/21 04/25/22 Rauol Nogueira MD 50 [place] [address] [email or web address] Insurance Assigned Provider 05/23/22 06/20/22 documented as of this encounter Additional Source Comments The information contained in this document represents components of the legal health record. It is not the complete legal health record.[facility]
--- OUTSIDE RECORDS SUMMARY | 2024-10-14 01:22 | XMS_ITS | Clinical Summary ---
Author Organization [facility] Address [address] [facility] [address] [place] [address] Care Team Providers Care Vault Teller Name Role Phone Manda Dorantes MD Primary Care Provider [phone] Social History Tobacco Use Types Packs/Day Years Used Date Smoking Tobacco: Never Assessed Comments Unknown Sex and Gender Information Value Date Recorded Sex Assigned at Not on file Legal Sex Female 11:05 PM EST Gender Identity Not on file Sexual Orientation Not on file Plan of Treatment Not on file Care Teams Vault Teller Relationship Specialty Start Date End Date Manda Dorantes MD 15 [place] [address] PCP - General 03/21/21
--- OUTSIDE RECORDS SUMMARY | 2024-10-14 01:22 | XMS_ITS | Encounter Summary ---
Author Organization [facility] Address [address] [place] [address] Phone Care Team Providers Care Supervisor Rough End Name Role Phone Manda Dorantes MD, MPH Primary Care Provider Manda Dorantes MD, MPH Unavailable [phone] Raoul Nogueira MD Unavailable [phone] Raoul Nogueira MD Unavailable [phone] Raoul Nogueira MD Unavailable [phone] Encounter Details Date Type Department Care Team (Late st Contact Info) Description 04/23/2020 Procedure Pass [facility] Cardiac US [address] [place] [address] Social History Tobacco Use Types Packs/Day Years [...] high school, GED, job training, learning the Guinean language, technical skills, or developing parenting skills)? [...] Info) Description 10/23/2024 8:00 AM EDT Appointment [facility] Nuclear Medicine [address] [place] [address] Tanvi English MD, DrPH [address] [place] [address] [email or web address] 10/24/2024 2:30 PM EDT Telemedicine [address], [address] [address] Jeremias Lawernce MD [address] [place] [address] 8 [place] [address] [email or web address] 11/07/2024 9:00 AM EDT Telemedicine [address], [address] [place] [address] Jeremias Lawrence MD [address] [place] [address] 8 [place] [address] [email or web address] 12/13/2024 8:30 AM EDT Telemedicine [facility] Weight Center [address] [facility] [address] [place] [address] Sammy Groves MD 50 [facility], 4th Floor [address] [place] [address] [email or web address] 01/08/2025 12:35 PM EST Office Visit [facility] Diabetes Center 50 [facility] [address] [place] [address] Timbo Calle MD [address] [place] [address] [address] [place] [address] [email or web address] documented as of this encounter Visit Diagnoses [...] documented as of this encounter Care Teams Supervisor Rough End Relationship Specialty Start Date End Date Manda Dorantes MD, MPH [address] [place] [address] [email or web address] PCP - General Internal Medicine 01/01/17 Manda Dorantes MD, MPH [address] [place] [address] [email or web address] Partners Attributed Provider 03/13/17 06/24/23 Raoul Nogueira MD 50 [place] [address] [email or web address] [email or web address] Insurance Assigned Provider 11/23/20 12/21/20 Raoul Nogeuira MD 50 [place] [address] [email or web address] [email or web address] Insurance Assigned Provider 01/31/21 04/25/22 Raoul Nogueira MD 50 [place] [address] [email or web address] [email or web address] Insurance Assigned Provider 05/23/22 06/20/22 documented as of this encounter Additional Source Comments The information contained in this document represents components of the legal health record. It is not the complete legal health record.[facility]
--- OUTSIDE RECORDS SUMMARY | 2024-10-14 01:22 | XMS_ITS | Encounter Summary ---
Author Organization [facility] Address [address] [place] [address] Phone Care Team Providers Care Assistant Superintendent Name Role Phone Manda Dorantes MD, MPH Primary Care Provider [phone] Manda Dorantes MD, MPH Unavailable [phone] Raoul Nogueira MD Unavailable [phone] Raoul Nogueira MD Unavailable [phone] Reason for Referral * - Closed Specialty Diagnoses / Procedures Referred By Kenyon vann Referred To Contact Radiology Diagnoses Follow up Procedures US Breast (Right) Manda Dorantes MD, MPH Phone: tel: fax: mailto:[email or web address] Referral ID Status Reason Start Date Expiration Date Visits Re quested Visits Authorized [id number] Closed 02/01/2021 02/01/2022 1 1 Encounter Details Date Type Department Care Team (Late st Contact Info) Description 02/01/2021 Ancillary Orders [facility] [address] [facility], [address] [place] [address] Manda Dorantes MD, MPH [address] [place] [address] [email or web address] Follow up Social History Tobacco Use Types Packs/Day Years Used Date Smoking Tobacco: Former Cigarettes 0.5 7 2 008 - 2014 Smokeless Tobacco: Former Quit: 2007 Alcohol Use [...] high school, GED, job training, learning the Anguillan language, technical skills, or developing parenting skills)? [...] Info) Description 10/23/2024 8:00 AM EDT Appointment [facility] Nuclear Medicine [address] [place] [address] Tanvi English MD, DrPH [address] [address] [email or web address] 10/24/2024 2:30 PM EDT Telemedicine [facility] [address] [facility], [address] [place] [address] Jeremias Lawrence MD [address] [place] [address] 8 [place] [address] [email or web address] 11/07/2024 9:00 AM EDT Telemedicine [facility] [address] [facility], [address] [place] [address] Jeremias Lawrence MD 55 [facility] 8 [place] [address] [email or web address] 12/13/2024 8:30 AM EDT Telemedicine [facility] Weight Center 50 [facility] [address] [place] [address] Sammy Groves MD 50 [facility], 4th Floor [address] [place] [address] [email or web address] 01/08/2025 12:35 PM EST Office Visit [facility] Diabetes [facility] 50 [facility] [address] [place] [address] Timbo Calle MD [address] [place] [address] [address] [place] [address] [email or web address] documented as of this encounter Results * BI US BREAST LIMITED (RIGHT) (02/10/2021 9:43 AM EST) Anatomical Region Laterality Modality Breast Right, Breast Bilateral Right U ltrasound Impressions 02/10/2021 1:39 PM EST Finding 1: The focal asymmetry in the right breast, lower inner quadrant previously described in 05/2020 does not persist on mammogram or ultrasound and is benign. Finding 2: Indeterminate grouped calcifications in the upper outer quadrant of the right breast at posterior depth are suspicious. Stereotactic core biopsy is recommended. The breast clinic graphics coordinator will contact the patient to schedule the procedure. BI-RADS Category 4: Suspicious Abnormality - Stereotactic core biopsy is recommended. This report has been forwarded to an automated communication system which will electronically notify appropriate providers of potentially important findings. The Breast Imaging Division will contact the patient directly to schedule the biopsy procedure. Narrative 02/10/2021 1:39 PM EST HISTORY: 45 year old female seen for diagnostic evaluation of a finding in the right breast. PROCEDURE: Diagnostic mammographic and tomosynthesis views were obtained. Computer-aided detection was utilized by the radiologist in the interpretation of this examination. RIGHT BREAST MAMMOGRAM: The present study is compared to previous imaging. There are scattered fibroglandular densities. Finding 1: Follow-up examination was performed for the probably benign focal asymmetry in the right breast, lower inner quadrant seen on 05/14/2020. On the present examination, focal asymmetry in the right breast, lower inner quadrant does not persist. Finding 2: There are grouped indeterminate calcifications in the upper outer quadrant of the right breast at posterior depth. BREAST ULTRASOUND Finding 1: A focused ultrasound was performed of the right breast lower inner quadrant. No suspicious sonographic abnormality is present. Procedure Note Ariana Theodore MD, MPH - 02/10/2021 HISTORY: 45 year old female seen for diagnostic evaluation of a finding in theright breast. PROCEDURE: Diagnostic mammographic and tomosynthesis views were obtained.Computer-aided detection was utilized by the radiologist in theinterpretation of this examination. RIGHT BREAST MAMMOGRAM: The present study is compared to previous imaging. There are scattered fibroglandular densities. Finding 1: Follow-up examination was performed for the probably benignfocal asymmetry in the right breast, lower inner quadrant seen on05/14/2020. On the present examination, focal asymmetry in the rightbreast, lower inner quadrant does not persist. Finding 2: There are grouped indeterminate calcifications in the upperouter quadrant of the right breast at posterior depth. BREAST ULTRASOUND Finding 1: A focused ultrasound was performed of the right breast lowerinner quadrant. No suspicious sonographic abnormality is present. IMPRESSION: Finding 1: The focal asymmetry in the right breast, lower inner quadrantpreviously described in 05/2020 does not persist on mammogram or ultrasoundand is benign. Finding 2: Indeterminate grouped calcifications in the upper outerquadrant of the right breast at posterior depth are suspicious.Stereotactic core biopsy is recommended. The breast clinic schedulingcoordinator will contact the patient to schedule the procedure. BI-RADS Category 4: Suspicious Abnormality - Stereotactic core biopsy isrecommended. This report has been forwarded to an automated communication system whichwill electronically notify appropriate providers of potentially importantfindings. The Breast Imaging Division will contact the patient directly toschedule the biopsy procedure. Manda Dorantes MD, MPH IMG US BREAST Final Result documented in this encounter Visit Diagnoses Diagnosis Follow up Follow up documented in this encounter Additional Health Concerns Infection [...] documented as of this encounter Care Teams Assistant Superintendent Relationship Specialty Start Date End Date Manda Dorantes MD, MPH 15 [place] [address] [email or web address] PCP - General Internal Medicine 01/01/17 Manda Dorantes MD, MPH 15 [place] [address] [email or web address] Partners Attributed Provider 03/13/17 06/24/23 Raoul Nogueira MD [address] [place] [address] [email or web address] Insurance Assigned Provider 01/31/21 04/25/22 Raoul Nogueira MD 50 [place] [address] [email or web address] Insurance Assigned Provider 05/23/22 06/20/22 documented as of this encounter Additional Source Comments The information contained in this document represents components of the legal health record. It is not the complete legal health record.[facility]
--- OUTSIDE RECORDS SUMMARY | 2024-10-14 01:22 | XMS_ITS | Encounter Summary ---
Author Organization [facility] Address [address] [place] [address] Phone Care Team Providers Care Dumpster Operator Name Role Phone Manda Dorantes MD, MPH Primary Care Provider [phone] Manda Dorantes MD, MPH Unavailable [phone] Raoul Nogueira MD Unavailable [phone] Raoul Nogueira MD Unavailable [phone] Encounter Details Date Type Department Care Team (Late st Contact Info) Description 03/10/2022 Procedure Pass [facility] Breast Evaluation Center [address] [facility] [address] [place] [address] Social History Tobacco Use Types Packs/Day Years [...] high school, GED, job training, learning the Belarusian language, technical skills, or developing parenting skills)? [...] Info) Description 10/23/2024 8:00 AM EDT Appointment [facility] Nuclear Medicine [address] [place] [address] Tanvi English MD, DrPH [address] [place] [address] [email or web address] 10/24/2024 2:30 PM EDT Telemedicine [address], [address] [address] Jeremias Lawrence MD [address] [place] [address] [email or web address] 11/07/2024 9:00 AM EDT Telemedicine [address], [address] [place] [address] Jeremias Lawrence MD [address] [place] [address] [email or web address] 12/13/2024 8:30 AM EDT Telemedicine [facility] Weight Center [address] [facility] [address] [place] [address] Sammy Groves MD [address] [facility], 4th Floor [address] [place] [address] [email or web address] 01/08/2025 12:35 PM EST Office Visit [facility] Diabetes Center [address] [facility] [address] [place] [address] Timbo Calle MD [address] [place] [address] [address] [place] [address] [email or web address] documented as of this encounter Visit Diagnoses Not on filedocumented in this encounter Additional Health Concerns Assessment Noted Time PHQ-9 Depression Total Score: 0 04/08/19 23 8:28 AM EST PHQ-2 Depression Total Score: 0 06/04/19 23 8:39 AM EDT documented as of this encounter Care Teams Dumpster Operator Relationship Specialty Start Date End Date Manda Dorantes MD, MPH [address] [place] [address] [email or web address] PCP - General Internal Medicine 01/01/17 Manda Dorantes MD, MPH [address] [place] [address] [email or web address] Partners Attributed Provider 03/13/17 06/24/23 Raoul Nogueira MD [address] [place] [address] [email or web address] [email or web address] Insurance Assigned Provider 01/31/21 04/25/22 Raoul Nogueira MD [address] [place] [address] [email or web address] Insurance Assigned Provider 05/23/22 06/20/22 documented as of this encounter Additional Source Comments The information contained in this document represents components of the legal health record. It is not the complete legal health record.[facility]
--- OUTSIDE RECORDS SUMMARY | 2024-10-14 01:22 | XMS_ITS | Encounter Summary ---
Author Organization [facility] Address [address] [place] [address] Phone Care Team Providers Care Cook Chef Name Role Phone Manda Dorantes MD, MPH Primary Care Provider [phone] Manda Dorantes MD, MPH Unavailable [phone] Raoul Nogueira MD Unavailable [phone] Raoul Nogueira MD Unavailable [phone] Encounter Details Date Type Department Care Team (Late st Contact Info) Description 02/01/2021 Procedure Pass [facility] Breast Evaluation Center 15 [facility] [address] [place] [address] Social History Tobacco Use Types Packs/Day Years [...] [facility] Nuclear Medicine [address] [place] [address] Tanvi English MD, DrPH [address] [place] [address] [email or web address] 10/24/2024 2:30 PM EDT Telemedicine [address], [address] [address] Jeremias Lawrence MD [address] [place] [address] [email or web address] 11/07/2024 9:00 AM EDT Telemedicine [address], [address] [place] [address] Jeremias Lawrence MD [address] [place] [address] [email or web address] 12/13/2024 8:30 AM EDT Telemedicine [facility] Weight Center [address] [facility] [address] [place] [address] Sammy Groves MD 50 [facility], 4th Floor [address] [place] [address] [email or web address] 01/08/2025 12:35 PM EST Office Visit [facility] Diabetes Center [address] [facility] [address] [place] [address] Timbo Calle MD [address] [place] [address] [address] [place] [address] [email or web address].KELLY [facility] documented as of this encounter [...] documented as of this encounter Care Teams Cook Chef Relationship Specialty Start Date End Date Manda Dorantes MD, MPH [address] [place] [address] [email or web address] PCP - General Internal Medicine 01/01/17 Manda Dorantes MD, MPH [address] [place] [address] [email or web address] Partners Attributed Provider 03/13/17 06/24/23 Raoul Nogueira MD [address] [place] [address] [email or web address] Insurance Assigned Provider 01/31/21 04/25/22 Raoul Nogueira MD [address] [place] [address] [email or web address] Insurance Assigned Provider 05/23/22 06/20/22 documented as of this encounter Additional Source Comments The information contained in this document represents components of the legal health record. It is not the complete legal health record.[facility]
--- OUTSIDE RECORDS SUMMARY | 2024-10-14 01:22 | XMS_ITS | Encounter Summary ---
Author Organization [facility] Address [address] [place] [address] Phone Care Team Providers Care Hair Colorist Name Role Phone Manda Dorantes MD, MPH Primary Care Provider [phone] Manda Dorantes MD, MPH Unavailable [phone] Raoul Nogueira MD Unavailable [phone] Raoul Nogueira MD Unavailable [phone] Reason for Visit * Reason Comments Medication Refill Encounter Details Date Type Department Care Team (Late st Contact Info) Description 07/10/[address], [address] [place] [address] Amie Garcia, [address] [address] [email or web address] Medication Refill Social History Tobacco Use Types [...] high school, GED, job training, learning the Panamanian language, technical skills, or developing parenting skills)? [...] Info) Description 10/23/2024 8:00 AM EDT Appointment [facility] [place] [address] [place] [address] Tanvi English MD, DrPH [address] [address] [email or web address] [email or web address].[email or web address] 10/24/2024 2:30 PM EDT Telemedicine [facility] [address] [facility], [address] [place] [address] Jeremias Lawrence MD [address] [address] [email or web address] [email or web address] u 11/07/2024 9:00 AM EDT Telemedicine [address], [address] [place] [address] Jeremias Lawrence MD [address] [place] [address] [email or web address] 12/13/2024 8:30 AM EDT Telemedicine [facility] [place] 50 [facility] [address] [place] [address] Sammy Groves MD 50 [facility], 4th Floor [address] [place] [address] [email or web address] 01/08/2025 12:35 PM EST Office Visit [facility] [place] 50 [facility] 340 [place] [address] Timbo Calle MD 55 [facility] [address] [place] [address] [email or web address] documented as of this encounter Visit Diagnoses Not on filedocumented in this encounter Additional Health Concerns Infection Onset Date Last Indicated Resolved Time CoV-Presumed 08/18/2021 08/18/2021 09/08/2021 1:21 AM EDT Assessment Noted Time PHQ-2 Depression Total Score: 0 07/11/19 22 11:49 AM EDT documented as of this encounter Care Teams Hair Colorist Relationship Specialty Start Date End Date Manda Dorantes MD, MPH [address] [place] [address] [email or web address] PCP - General Internal Medicine 01/01/17 Manda Dorantes MD, MPH [address] [place] [address] [email or web address] Partners Attributed Provider 03/13/17 06/24/23 Raoul Nogueira MD [address] [place] [address] [email or web address] Insurance Assigned Provider 01/31/21 04/25/22 Raoul Nogueira MD [address] [place] [address] [email or web address] Insurance Assigned Provider 05/23/22 06/20/22 documented as of this encounter Additional Source Comments The information contained in this document represents components of the legal health record. It is not the complete legal health record.[facility]
--- OUTSIDE RECORDS SUMMARY | 2024-10-14 01:22 | XMS_ITS | Encounter Summary ---
Author Organization [facility] Address [address] [place] [address] Phone Care Team Providers Care Nurse Practitioner Per Diem Name Role Phone Manda Dorantes MD, MPH Primary Care Provider Manda Dorantes MD, MPH Unavailable [phone] Reason for Visit * Reason Comments Medication Refill Encounter Details Date Type Department Care Team (Late st Contact Info) Description 09/01/2022 Refill [facility] [address] [facility], [address] [place] [address] Trevon Sierra MD 55 [facility] [address] [place] [address] [email or web address] Medication Refill Social History Tobacco Use Types [...] Info) Description 10/23/2024 8:00 AM EDT Appointment [facility] [place] [address] [place] [address] Tanvi English MD, DrPH [address] [place] [address] [address] [place] [address] [email or web address] 10/24/2024 2:30 PM EDT Telemedicine [facility] [address] [facility], [address] [place] [address] Jeremias Lawrence MD [address] [place] [address] 8 [place] [address] [email or web address] u 11/07/2024 9:00 AM EDT Telemedicine [address], [address] [place] [address] Jeremias Lawrence MD [address] [facility] 8 [place] [address] [email or web address] 12/13/2024 8:30 AM EDT Telemedicine [facility] Weight Center 50 [facility] [address] [place] [address] Sammy Groves MD 50 [facility], 4th [address] [place] [address] [email or web address] 01/08/2025 12:35 PM EST Office Visit [facility] Diabetes Center 50 [facility] [address] [place] [address] Timbo Calle MD [address] [place] [address] [address] [place] [address] [email or web address] documented as of this encounter Visit Diagnoses Diagnosis Generalized anxiety disorder documented in this encounter Additional Health Concerns Assessment Noted Time PHQ-9 Depression Total Score: 0 08/27/19 23 7:30 AM EDT PHQ-2 Depression Total Score: 0 08/27/19 23 7:30 AM EDT documented as of this encounter Care Teams Nurse Practitioner Per Diem Relationship Specialty Start Date End Date Manda Dorantes MD, MPH [address] [place] [address] [email or web address] PCP - General Internal Medicine 01/01/17 Manda Dorantes MD, MPH [address] [place] [phone] [email or web address] Partners Attributed Provider 03/13/17 06/24/23 documented as of this encounter Additional Source Comments The information contained in this document represents components of the legal health record. It is not the complete legal health record.[facility]
--- OUTSIDE RECORDS SUMMARY | 2024-10-14 01:22 | XMS_ITS | Encounter Summary ---
Author Organization [facility] Address [address] [place] [address] Phone Care Team Providers Care Office Services Clerk Name Role Phone Manda Dorantes MD, MPH Primary Care Provider Manda Dorantes MD, MPH Unavailable [phone] Raoul Nogueira MD Unavailable [phone] Raoul Nogueira MD Unavailable [phone] Reason for Visit * Reason Comments Medication Refill Encounter Details Date Type Department Care Team (Late st Contact Info) Description 06/29/[address], [address] [place] [address] Amie Garcia, [address] [address] [email or web address] Medication Refill Social History Tobacco Use Types [...] high school, GED, job training, learning the Malawian language, technical skills, or developing parenting skills)? [...] Info) Description 10/23/2024 8:00 AM EDT Appointment [facility] [place] [address] [place] [address] Tanvi English MD, DrPH [address] [address] [email or web address].[facility] 10/24/2024 2:30 PM EDT Telemedicine [facility] 15 [facility], [address] [place] [address] Jeremias Lawrence MD [address] [address] [email or web address] u 11/07/2024 9:00 AM EDT Telemedicine [address], [address] [place] [address] Jeremias Lawrence MD [address] [place] [address] [email or web address] 12/13/2024 8:30 AM EDT Telemedicine [facility] Weight Center 50 [address] [place] [address] Sammy Groves MD 50 [facility], 4th Floor [address] [place] [address] [email or web address] 01/08/2025 12:35 PM EST Office Visit [facility] 50 [facility] 340 [place] [address] Timbo Calle MD [address] [place] [address] [address] [place] [address] [email or web address] documented as of this encounter Visit Diagnoses Not on filedocumented in this encounter Additional Health Concerns Infection Onset Date Last Indicated Resolved Time CoV-Presumed 08/18/2021 08/18/2021 09/08/2021 1:21 AM EDT Assessment Noted Time PHQ-2 Depression Total Score: 2 04/17/19 18 8:39 AM EST documented as of this encounter Care Teams Office Services Clerk Relationship Specialty Start Date End Date Manda Dorantes MD, MPH [address] [place] [phone] [email or web address] PCP - General Internal Medicine 01/01/17 Manda Dorantes MD, MPH [address] [place] [address] [email or web address] Partners Attributed Provider 03/13/17 06/24/23 Raoul Nogueira MD [address] [place] [address] [email or web address] Insurance Assigned Provider 01/31/21 04/25/22 Raoul Nogueira MD [address] [place] [address] [email or web address] Insurance Assigned Provider 05/23/22 06/20/22 documented as of this encounter Additional Source Comments The information contained in this document represents components of the legal health record. It is not the complete legal health record.[facility]
--- OUTSIDE RECORDS SUMMARY | 2024-10-14 01:22 | XMS_ITS | Encounter Summary ---
Author Organization [facility] Address [address] [place] [address] Phone Care Team Providers Care Prom Burn Off Operator Name Role Phone Manda Dorantes MD, MPH Primary Care Provider [phone] Reason for Visit * Reason Comments Medication Refill Encounter Details Date Type Department Care Team (Late st Contact Info) Description 09/25/2024 Refill [facility] [address] [facility], [address] [place] [address] Jeremias Lawrence MD [address] [place] [address] [email or web address] Medication Refill Social History Tobacco Use Types Packs/Day Years Used Date Smoking Tobacco: Former Cigarettes 0.5 7 2 008 - 2015 Smokeless Tobacco: Former Quit: 2006 Alcohol Use [...] high school, GED, job training, learning the Thai language, technical skills, or developing parenting skills)? Yes 08/31/2023 Are you concerned about learning? Not on file 08/31/2023 Yes 08/31/2023 No 08/31/2023 Food Answer Date Recorded Within the past 6 months we worried whether our food would run out before we got money to buy more. I choose not to answer 01/31/2024 Within the past 6 months the food we bought just didn't last and we didn't have enough money to get more. I choose not to answer 01/31/2024 Residential Stability Answer Date Recor ded What is your housing situation today? I choose n ot to answer 01/31/2024 How many times have you move d in the past 12 months? I choose not to answer 01/31/2024 Paying for Meds Answer Date Recorded Do you have trouble paying for medicines? I nicole se not to answer 01/31/2024 Paying Utility Bills Answer Date Record ed Do you have trouble paying y our heating or electricity bill? I choose not to answer 01/31/2024 Transportation Answer Date Recorded Has the lack of transportati on kept you from medical appointments or from getting medications? I choose not to answer 01/31/2024 Digital Access Answer Date Recorded No 01/31/2024 No 01/31/2024 Do you have reliable internet access at home? I choose not to answer 01/31/2024 Do you have a device (e.g., phone, tablet, computer) with a working camera? I choose not to answer 01/31/2024 Intimate Partner Violence Answer Date R ecorded Are you denied basic needs s uch as food, clothing, or medical care? No 02/07/2024 In the past 12 months have y ou been in a relationship with a person who hurts, threatens, or tries to control you? No 02/07/2024 Are you denied basic needs s uch as food, clothing, or medical care? No 02/07/2024 In the past 12 months have y ou been in a relationship with a person who hurts, threatens, or tries to control you? No 02/07/2024 Comments No Sex and Gender Information Value Date Recorded Sex Assigned at Female 12/23/2023 7:45 PM EST Legal Sex Female 5:22 PM EST Gender Identity Female 12/23/2023 7:45 PM EST Sexual Orientation Straight 12/23/2023 7: 45 PM EST documented as of this encounter Plan of Treatment Upcoming Encounters Date Type Department Care Team (Late st Contact Info) Description 10/23/2024 8:00 AM EDT Appointment [facility] [place] 55 [place] [address] Tanvi English MD, DrPH 55 [facility] [address] [place] [address] [email or web address] 10/24/2024 2:30 PM EDT Telemedicine [facility] [address] [facility], [address] [place] [address] Jeremias Lawrence MD [address] [place] [address] 8 [place] [address] [email or web address] 11/07/2024 9:00 AM EDT Telemedicine [facility] [address] [facility], [address] [place] [address] Jeremias Lawrence MD [address] [place] [address] 8 [place] [address] [email or web address] 12/13/2024 8:30 AM EDT Telemedicine [facility] [place] [facility] 50 [facility] [address] [place] [address] Sammy Groves MD 50 [facility], 4th Floor [address] [place] [address] [email or web address] 01/08/2025 12:35 PM EST Office Visit [facility] 50 [facility] [address] [place] [address] Timbo Calle MD [address] [place] [address] [address] [place] [address] [email or web address] [email or web address] documented as of this encounter Visit Diagnoses Not on filedocumented in this encounter Additional Health Concerns Assessment Noted Time PHQ-9 Depression Total Score: 0 08/27/19 23 7:30 AM EDT PHQ-2 Depression Total Score: 0 02/13/20 24 4:51 PM EST documented as of this encounter Care Teams Prom Burn Off Operator Relationship Specialty Start Date End Date Manda Dorantes MD, MPH 15 [place] [address] [email or web address] PCP - General Internal Medicine 01/01/17 documented as of this encounter Additional Source Comments The information contained in this document represents components of the legal health record. It is not the complete legal health record.[facility]
--- OUTSIDE RECORDS SUMMARY | 2024-10-14 01:22 | XMS_ITS | Encounter Summary ---
Author Organization [facility] Address [address] [place] [address] Phone Care Team Providers Care Siphon Operator Name Role Phone Manda Dorantes MD, MPH Primary Care Provider [phone] Manda Dorantes MD, MPH Unavailable [phone] Raoul Nogueira MD Unavailable [phone] Raoul Nogueira MD Unavailable [phone] Encounter Details Date Type Department Care Team (Late st Contact Info) Description 01/30/2021 Procedure Pass [facility] [address] [facility] [address] [place] [address] Social History Tobacco Use Types Packs/Day Years [...] high school, GED, job training, learning the [place]ican language, technical skills, or developing parenting skills)? [...] 10/23/2024 8:00 AM EDT Appointment [facility] [place] [address] [place] [address] Tanvi English MD, DrPH [address] [place] [address] [email or web address] 10/24/2024 2:30 PM EDT Telemedicine [address], [address] [address] Jeremias Lawrence MD [address] [place] [address] [email or web address] 11/07/2024 9:00 AM EDT Telemedicine [address], [address] [place] [address] Jeremias Lawrence MD [address] [place] [address] [email or web address] 12/13/2024 8:30 AM EDT Telemedicine [facility] [place] [facility] [address] [facility] [address] [place] [address] Sammy Groves MD [address] [facility], 4th Floor [address] [place] [address] [email or web address] 01/08/2025 12:35 PM EST Office Visit [facility] [address] [facility] [address] [place] [address] Timbo Calle MD [address] [place] [address] [address] [place] [address] [email or web address] documented as of this encounter [...] documented as of this encounter Care Teams Siphon Operator Relationship Specialty Start Date End Date Manda Dorantes MD, MPH [address] [place] [address] [email or web address] PCP - General Internal Medicine 01/01/17 Manda Dorantes MD, MPH [address] [place] [address] [email or web address] Partners Attributed Provider 03/13/17 06/24/23 Raoul Nogueira MD [address] [place] [address] [email or web address] Insurance Assigned Provider 01/31/21 04/25/22 Raoul Nogueira MD [address] [place] [address] [email or web address] Insurance Assigned Provider 05/23/22 06/20/22 documented as of this encounter Additional Source Comments The information contained in this document represents components of the legal health record. It is not the complete legal health record.[facility]
--- OUTSIDE RECORDS SUMMARY | 2024-10-14 01:22 | XMS_ITS | Encounter Summary ---
Author Organization [facility] Address [address] [place] [address] Phone Care Team Providers Care Dock Manager Name Role Phone Manda Dorantes MD, MPH Primary Care Provider [phone] Manda Dorantes MD, MPH Unavailable [phone] Raoul Nogueira MD Unavailable [phone] Raoul Nogueira MD Unavailable [phone] Raoul Nogueira MD Unavailable [phone] Reason for Visit * Reason Comments Medication Refill Encounter Details Date Type Department Care Team (Late st Contact Info) Description 08/21/2018 Refill [facility] [address] [facility] [address] [place] [address] Ewelina Houston, LEYDI Medication Refill Social History Tobacco Use Types [...] high school, GED, job training, learning the Norwegian language, technical skills, or developing parenting skills)? [...] PM EST documented as of this encounter Progress Notes * Rolanda Arvizu - 08/26/2018 4:36 PM EDT Has apt with Dr Nogueira in Sept * Claudia Child MA - 08/22/2018 4:38 PM EDT Does not pass protocol, see notes Last Clinic Visit: Visit date not found Next Clinic Visit: 10/25/2018 BP Readings from Last 3 Encounters: 08/06/18 120/70 07/05/18 118/72 06/28/18 105/70 CREATININE Date Value Ref Range Status 04/06/2018 1.20 0.60 - 1.50 mg/dL Final EGFR Date Value Ref Range Status 04/06/2018 56 (L) >59 mL/min/1.73m2 Final Comment: If patient is black, multiply result by 1.159. Estimated glomerular filtration rate calculated using the CKD-EPI equation. POTASSIUM Date Value Ref Range Status 04/06/2018 4.3 3.4 - 5.0 mmol/L Final HEMOGLOBIN A1C Date Value Ref Range Status 06/23/2017 6.8 (H) 4.3 - 6.4 % Final TSH Date Value Ref Range Status 04/06/2018 4.46 0.40 - 5.00 uIU/mL Final Lab Results Component Value Date CHOL 114 04/06/2018 HDL 44 04/06/2018 LDL 50 04/06/2018 TRIG 99 04/06/2018 CHOLHDL 2.6 04/06/2018 documented in this encounter Plan of Treatment Upcoming Encounters Date Type Department Care Team (Late st Contact Info) Description 10/23/2024 8:00 AM EDT Appointment [facility] [place] [address] [place] [address] Tanvi English MD, DrPH [address] [address] [email or web address] [place] [email or web address] 10/24/2024 2:30 PM EDT Telemedicine [address], [place] [address] [place] [address] Jeremias Lawrence MD [address] [place] [address] 8 [place] [address] [email or web address] 11/07/2024 9:00 AM EDT Telemedicine [address], [address] [place] [address] Jeremias Lawrence MD [address] [place] [address] 8 [place] [address] [email or web address] 12/13/2024 8:30 AM EDT Telemedicine [facility] [place] [facility] [address] [place] [address] Sammy Groves MD 50 [facility], 4th Floor [address] [place] [address] [email or web address] 01/08/2025 12:35 PM EST Office Visit [facility] 50 [facility] 340 [place] [address] Timbo Calle MD [address] [place], [place] [address] [place] [address] [email or web address] documented as of this encounter Visit Diagnoses [...] documented as of this encounter Care Teams Dock Manager Relationship Specialty Start Date End Date Manda Dorantes MD, MPH 15 [place] [address] [email or web address] PCP - General Internal Medicine 01/01/17 Manda Dorantes MD, MPH 15 [place] [address] [email or web address] Partners Attributed Provider 03/13/17 06/24/23 Raoul Nogueira MD [address] [place] [address] [email or web address] Insurance Assigned Provider 11/23/20 12/21/20 Raoul Nogueira MD 50 [place] [address] [email or web address] Insurance Assigned Provider 01/31/21 04/25/22 Raoul Nogueira MD [address] [place] [address] [email or web address] Insurance Assigned Provider 05/23/22 06/20/22 documented as of this encounter Additional Source Comments The information contained in this document represents components of the legal health record. It is not the complete legal health record.[facility]
--- OUTSIDE RECORDS SUMMARY | 2024-10-14 01:22 | XMS_ITS | Encounter Summary ---
Author Organization [facility] Address [address] [place] [address] Phone Care Team Providers Care Pad Cutter Name Role Phone Manda Dorantes MD, MPH Primary Care Provider [phone] Manda Dorantes MD, MPH Unavailable [phone] Raoul Nogueira MD Unavailable [phone] Raoul Nogueira MD Unavailable [phone] Encounter Details Date Type Department Care Team (Late st Contact Info) Description 01/30/2021 Ancillary Orders [facility] [address] [facility], [address] [place] [address] Manda Dorantes MD, MPH [address] [place] [address] [email or web address] Follow up Social History Tobacco Use Types [...] high school, GED, job training, learning the Palestinian language, technical skills, or developing parenting skills)? No 06/28/2018 Food Answer Date Recorded Within the past 6 months we worried whether our food would run out before we got money to buy more. Never True 06/28/2018 Within the past 6 months the food we bought just didn't last and we didn't have enough money to get more. Never True Paying for Meds Answer Date Recorded Do [...] Info) Description 10/23/2024 8:00 AM EDT Appointment [facility] Nuclear Medicine [address] [place] [address] Tanvi English MD, DrPH [address] [address] [email or web address] 10/24/2024 2:30 PM EDT Telemedicine [address], [address] [place] [address] Jeremias Lawrence MD [address] [place] [address] 8 [place] [address] [email or web address] 11/07/2024 9:00 AM EDT Telemedicine [address], [address] [place] [address] Jeremias Lawrence MD [address] [place] [address] 8 [place] [address] [email or web address] 12/13/2024 8:30 AM EDT Telemedicine [facility] Weight Center [address] [place] [address] Sammy Groves MD 50 [facility], 4th Floor [address] [place] [address] [email or web address] 01/08/2025 12:35 PM EST Office Visit [facility] Diabetes Center [address] [facility] [address] [place] [address] Timbo Calle MD [address] [place] [address] [address] [place] [address] [email or web address] documented as of this encounter Results * BI MAMMOGRAM DIAGNOSTIC WITH TOMOSYNTHESIS WITH CAD (RIGHT) (02/10/2021 8:23 AM EST) Anatomical Region Laterality Modality Breast Right, Breast Bilateral Right M ammography Impressions 02/10/2021 1:39 PM EST Finding 1: The focal asymmetry in the right breast, lower inner quadrant previously described in 05/2020 does not persist on mammogram or ultrasound and is benign. Finding 2: Indeterminate grouped calcifications in the upper outer quadrant of the right breast at posterior depth are suspicious. Stereotactic core biopsy is recommended. The breast clinic sports coordinator will contact the patient to schedule [...] for diagnostic evaluation of a finding in [place]. PROCEDURE: Diagnostic mammographic and tomosynthesis views were [...] the patient directly toschedule the biopsy procedure. us Manda Dorantes MD, MPH IMG MG EXAMS Final Result documented in this encounter Visit [...] documented as of this encounter Care Teams Pad Cutter Relationship Specialty Start Date End Date Manda Dorantes MD, MPH 15 [place] [address] [email or web address] PCP - General Internal Medicine 01/01/17 Manda Dorantes MD, MPH [address] [place] [address] [email or web address] Partners Attributed Provider 03/13/17 06/24/23 Raoul Nogueira MD [address] [place] [address] [email or web address] Insurance Assigned Provider 01/31/21 04/25/22 Raoul Nogeuira MD [address] [place] [address] [email or web address] Insurance Assigned Provider 05/23/22 06/20/22 documented as of this encounter Additional Source Comments The information contained in this document represents components of the legal health record. It is not the complete legal health record.[facility]
--- OUTSIDE RECORDS SUMMARY | 2024-10-14 01:22 | XMS_ITS | Encounter Summary ---
Author Organization [facility] Address [address] [place] [address] Phone Care Team Providers Care Short Story Writer Name Role Phone Manda Dorantes MD, MPH Primary Care Provider [phone] Manda Dorantes MD, MPH Unavailable Encounter Details Date Type Department Care Team (Late st Contact Info) Description 02/12/2023 Telephone [facility] [address] [facility], [address] [place] [address] Cory Babin MD [facility] 6th [place] [address] [email or web address] Social History Tobacco Use Types Packs/Day Years [...] Info) Description 10/23/2024 8:00 AM EDT Appointment [facility] Nuclear Medicine [address] [place] [address] Tanvi English MD, DrPH [address] [address] [email or web address] 10/24/2024 2:30 PM EDT Telemedicine [facility] [address] [facility], [address] [place] [address] Jeremias Lawrence MD [address] [place] [address] [email or web address] u 11/07/2024 9:00 AM EDT Telemedicine [address], [address] [place] [address] Jeremias Lawrence MD [address] [place] [address] [email or web address] 12/13/2024 8:30 AM EDT Telemedicine [facility] Weight Center [address] [place] [address] Sammy Groves MD 50 [facility], 4th Floor [address] [place] [address] [email or web address] 01/08/2025 12:35 PM EST Office Visit [facility] Diabetes Center [address] [place] [address] Timbo Calle MD [address] [facility] [address] [place] [address] [email or web address] documented as of this encounter Visit Diagnoses Not on filedocumented in this encounter Additional Health Concerns Assessment Noted Time PHQ-9 Depression Total Score: 0 08/27/19 23 7:30 AM EDT PHQ-2 Depression Total Score: 0 08/27/19 23 7:30 AM EDT documented as of this encounter Care Teams Short Story Writer Relationship Specialty Start Date End Date Manda Dorantes MD, MPH [address] [place] [address] [email or web address] PCP - General Internal Medicine 01/01/17 Manda Dorantes MD, MPH [address] [place] [address] [email or web address] Partners Attributed Provider 03/13/17 06/24/23 documented as of this encounter Additional Source Comments The information contained in this document represents components of the legal health record. It is not the complete legal health record.[facility]
--- OUTSIDE RECORDS SUMMARY | 2024-10-14 01:22 | XMS_ITS | Encounter Summary ---
Author Organization [employer] [facility] Address [address] [place] [address] Phone Care Team Providers Care Tug Captain Name Role Phone Manda Dorantes MD, MPH Primary Care Provider [phone] Manda Dorantes MD, MPH Unavailable [phone] Encounter Details Date Type Department Care Team (Late st Contact Info) Description 04/26/2023 Procedure Pass [facility] Breast Imaging, [address] [address] Social History Tobacco Use Types Packs/Day Years [...] Info) Description 10/23/2024 8:00 AM EDT Appointment [facility] Nuclear Medicine [address] [place] [address] Tanvi English MD, DrPH [address] [place] [address] [email or web address] 10/24/2024 2:30 PM EDT Telemedicine [address], [address] [address] Jeremias Lawrence MD [address] [place] [address] [email or web address] 11/07/2024 9:00 AM EDT Telemedicine [address], [address] [place] [address] Jeremias Lawrence MD [address] [place] [address] [email or web address] 12/13/2024 8:30 AM EDT Telemedicine [facility] Weight Center [address] [place] [address] Sammy Groves MD 50 [facility], 4th Floor [address] [place] [address] [email or web address] 01/08/2025 12:35 PM EST Office Visit [facility] Diabetes Center [address] [place] [address] Timbo Calle MD [address] [place] [address] [address] [place] [address] [email or web address] documented as of this encounter Visit Diagnoses Not on filedocumented in this encounter Additional Health Concerns Assessment Noted Time PHQ-9 Depression Total Score: 0 08/27/19 23 7:30 AM EDT PHQ-2 Depression Total Score: 0 08/31/19 24 10:24 AM EDT documented as of this encounter Care Teams Tug Captain Relationship Specialty Start Date End Date Manda Dorantes MD, MPH 15 [place] [address] [email or web address] PCP - General Internal Medicine 01/01/17 Manda Dorantes MD, MPH [address] [place] [address] [email or web address] Partners Attributed Provider 03/13/17 06/24/23 documented as of this encounter Additional Source Comments The information contained in this document represents components of the legal health record. It is not the complete legal health record.[facility]
--- OUTSIDE RECORDS SUMMARY | 2024-10-14 01:23 | XMS_ITS | Encounter Summary ---
Author Organization [facility] Address [address] [place] [address] Phone Care Team Providers Care Supervisor Sample Preparation Name Role Phone Manda Dorantes MD, MPH Primary Care Provider [phone] Manda Dorantes MD, MPH Unavailable [phone] Raoul Nogueira MD Unavailable [phone] Raoul Nogueira MD Unavailable [phone] Raoul Nogueira MD Unavailable [phone] Raoul Nogueira MD Unavailable [phone] Encounter Details Date Type Department Care Team (Late st Contact Info) Description 04/11/2018 Ancillary Orders [facility] [address] [facility], [address] [place] [address] Manda Dorantes MD, MPH [address] [place] [address] [email or web address] Social History Tobacco Use Types Packs/Day Years Used Date Smoking Tobacco: Former Smokeless Tobacco: Former Quit: 2006 Alcohol Use Standard Drinks/Week Comments No 0 (1 standard drink = 0.6 oz pur e alcohol) Comments No Sex and Gender Information Value Date Recorded Sex Assigned at Female 12/23/2023 7:45 PM EST Legal Sex Female 5:22 PM EST Gender Identity Female 12/23/2023 7:45 PM EST Sexual Orientation Straight 12/23/2023 7: 45 PM EST documented as of this encounter Plan of Treatment Upcoming Encounters Date Type Department Care Team (Late st Contact Info) Description 10/23/2024 8:00 AM EDT Appointment [facility] [place] [address] [place] [address] Tanvi English MD, DrPH [address] [facility] [address] [place] [address] [email or web address] 10/24/2024 2:30 PM EDT Telemedicine [facility] [address] [facility], [facility] 815 [place] [address] Jeremias Lawrence MD [address] [place] [address] 8 [place] [address] [email or web address] 11/07/2024 9:00 AM EDT Telemedicine [facility] [address] [facility], [address] [place] [address] Jeremias Lawrence MD [address] [place] [address] 8 [place] [address] [email or web address] 12/13/2024 8:30 AM EDT Telemedicine [facility] [place] [facility] [address] [facility] [address] [place] [address] Sammy Groves MD 50 [facility], 4th Floor [address] [place] [address] [email or web address] 01/08/2025 12:35 PM EST Office Visit [facility] [address] [facility] [address] [place] [address] Timbo Calle MD [address] [facility] [address] [place] [address] [email or web address] documented as of this encounter Visit Diagnoses [...] as of this encounter Care Teams Supervisor Sample Preparation Relationship Specialty Start Date End Date Manda Dorantes MD, MPH 15 [place] [address] [email or web address] PCP - General Internal Medicine 01/01/17 Manda Dorantes MD, MPH 15 [place] [address] [email or web address] Partners Attributed Provider 03/13/17 06/24/23 Raoul Nogueira MD 50 [place] [address] [email or web address] Insurance Assigned Provider 06/19/17 05/21/18 Raoul Nogueira MD 50 [place] [address] [email or web address] Insurance Assigned Provider 11/23/20 12/21/20 Raoul Nogueira MD 50 [place] [address] [email or web address] Insurance Assigned Provider 01/31/21 04/25/22 Raoul Nogueira MD [address] [place] [address] [email or web address] Insurance Assigned Provider 05/23/22 06/20/22 documented as of this encounter Additional Source Comments The information contained in this document represents components of the legal health record. It is not the complete legal health record.[facility]
--- OUTSIDE RECORDS SUMMARY | 2024-10-14 01:23 | XMS_ITS | Encounter Summary ---
Author Organization [facility] Address [address] [place] [address] Phone Care Team Providers Care Clinical Administrative Coordinator Name Role Phone Manda Dorantes MD, MPH Primary Care Provider [phone] Manda Dorantes MD, MPH Unavailable [phone] Encounter Details Date Type Department Care Team (Late st Contact Info) Description 05/24/2023 Procedure Pass MG Cardiac US [address] [place] [address] Social History Tobacco Use Types Packs/Day Years [...] enough money to get more. Never True 05/14/201 9 Paying for Meds Answer Date Recorded [...] Info) Description 10/23/2024 8:00 AM EDT Appointment [facility] Nuclear Medicine [address] [place] [address] Tanvi English MD, DrPH [address] [place] [address] [email or web address] 10/24/2024 2:30 PM EDT Telemedicine [address], [address] [address] Jeremias Lawrence MD [address] [place] [address] [email or web address] 11/07/2024 9:00 AM EDT Telemedicine [address], [address] [place] [address] Jeremias Lawrence MD [address] [place] [address] [email or web address] 12/13/2024 8:30 AM EDT Telemedicine [facility] Weight Center [address] [place] [address] Sammy Groves MD 50 [facility], 4th Floor [address] [place] [address] [email or web address] 01/08/2025 12:35 PM EST Office Visit [facility] Diabetes Center [address] [place] [address] Timbo Calle MD [address] [place] [address] [address] [place] [address] [email or web address] documented as of this encounter Visit Diagnoses Not on filedocumented in this encounter Additional Health Concerns Assessment Noted Time PHQ-9 Depression Total Score: 0 08/27/19 23 7:30 AM EDT PHQ-2 Depression Total Score: 0 08/31/19 24 10:24 AM EDT documented as of this encounter Care Teams Clinical Administrative Coordinator Relationship Specialty Start Date End Date Manda Dorantes MD, MPH [address] [place] [address] [email or web address] PCP - General Internal Medicine 01/01/17 Manda Dorantes MD, MPH [address] [place] [address] [email or web address] Partners Attributed Provider 03/13/17 06/24/23 documented as of this encounter Additional Source Comments The information contained in this document represents components of the legal health record. It is not the complete legal health record.[facility]
--- OUTSIDE RECORDS SUMMARY | 2024-10-14 01:23 | XMS_ITS | Encounter Summary ---
Author Organization [facility] Address [address] [place] [address] Phone Care Team Providers Care Brim Stretching Machine Operator Name Role Phone Manda Dorantes MD, MPH Primary Care Provider Manda Dorantes MD, MPH Unavailable [phone] Raoul Nogueira MD Unavailable [phone] Raoul Nogueira MD Unavailable [phone] Raoul Nogueira MD Unavailable [phone] Raoul Nogueira MD Unavailable [phone] Encounter Details Date Type Department Care Team (Late st Contact Info) Description 04/11/2018 Ancillary Orders [facility] Imaging - Xray, [place] [address] [place] [address], 3rd [place] [address] Manda Dorantes MD, MPH [address] [place] [address] [email or web address] Breast cancer screening Social History Tobacco Use Types Packs/Day Years [...] Description 10/23/2024 8:00 AM EDT Appointment [facility] Nuclear Medicine [address] [place] [address] Tanvi English MD, DrPH 55 [facility] [address] [place] [address] [email or web address] 10/24/2024 2:30 PM EDT Telemedicine [facility] [address] [facility] [place] [address] [place] [address] Jeremias Lawrence MD [address] [place] [address] 8 [place] [address] [email or web address] 11/07/2024 9:00 AM EDT Telemedicine [facility] [address] [facility], [address] [place] [address] Jeremias Lawrence MD [address] [place] [address] 8 [place] [address] [email or web address] 12/13/2024 8:30 AM EDT Telemedicine [facility] Weight Center [address] [facility] [address] [place] [address] Sammy Groves MD 50 [facility], 4th [address] [place] [address] [email or web address] 01/08/2025 12:35 PM EST Office Visit [facility] Diabetes Center [address] [facility] [address] [place] [address] Timbo Calle MD 55 [facility] [address] [place] [address] [email or web address] documented as of this encounter Results * BI MAMMOGRAM SCREENING WITH TOMOSYNTHESIS WITH CAD (BILATERAL) (05/11/2018 7:27 AM EDT) Anatomical Region Laterality Modality Breast Left, Breast Right, Breast Bilateral Bila teral Mammography 05/11/2018 Impressions 05/11/2018 8:21 AM EDT No mammographic evidence of malignancy. BI-RADS Category 1: Negative Patient's information is entered into a reminder system with a target due date for the next mammogram. Narrative 05/11/2018 8:21 AM EDT INDICATION FOR EXAM: Screening. PROCEDURE: The following standard mammographic and tomosynthesis views were obtained: craniocaudal and mediolateral oblique. Computer-aided detection was utilized by the radiologist in the interpretation of this examination. BILATERAL MAMMOGRAM: The present study is compared to previous imaging. There are scattered fibroglandular densities. No masses, areas of architectural distortion or suspicious microcalcifications are evident. There has been no significant interval change since the prior examination. Procedure Note Sun Herrera MD - 05/11/2018 INDICATION FOR EXAM: Screening. PROCEDURE: The following standard mammographic and tomosynthesis views were obtained:craniocaudal and mediolateral oblique. Computer-aided detection wasutilized by the radiologist in the interpretation of this examination. BILATERAL MAMMOGRAM: The present study is compared to previous imaging. There are scattered fibroglandular densities. No masses, areas of architectural distortion or suspiciousmicrocalcifications are evident. There has been no significant intervalchange since the prior examination. IMPRESSION: No mammographic evidence of malignancy. BI-RADS Category 1: Negative Patient's information is entered into a reminder system with a target duedate for the next mammogram. Manda Dorantes MD, MPH IMG MG EXAMS Final Result documented in this encounter Visit Diagnoses Diagnosis Breast cancer screening Breast screening, unspecified Breast cancer screening Breast screening, unspecified documented in this encounter Additional Health Concerns [...] documented as of this encounter Care Teams Brim Stretching Machine Operator Relationship Specialty Start Date End Date Manda Dorantes MD, MPH [address] [place] [address] [email or web address] PCP - General Internal Medicine 01/01/17 Manda Dorantes MD, MPH [address] [place] [address] [email or web address] Partners Attributed Provider 03/13/17 06/24/23 Raoul Nogueira MD 50 [place] [address] [email or web address] Insurance Assigned Provider 06/19/17 05/21/18 Raoul Nogueira MD [address] [place] [address] [email or web address] Insurance Assigned Provider 11/23/20 12/21/20 Raoul Nogueira MD 50 [place] [address] [email or web address] Insurance Assigned Provider 01/31/21 04/25/22 Raoul Nogueira MD [address] [place] [address] [place] [address] [email or web address] Insurance Assigned Provider 05/23/22 06/20/22 documented as of this encounter Additional Source Comments The information contained in this document represents components of the legal health record. It is not the complete legal health record.[facility]
--- OUTSIDE RECORDS SUMMARY | 2024-10-14 01:23 | XMS_ITS | Encounter Summary ---
Author Organization [facility] Address [address] [place] [address] Phone Care Team Providers Care Health Sciences Manager Name Role Phone Manda Dorantes MD, MPH Primary Care Provider [phone] Manda Dorantes MD, MPH Unavailable [phone] Raoul Nogueira MD Unavailable [phone] Raoul Nogueira MD Unavailable [phone] Reason for Referral * Outpatient Procedure - Closed Specialty Diagnoses / Procedures Referred By Kenyon vann Referred To Contact Radiology Diagnoses Breast calcification, right Procedures Mammogram Diagnostic Post Procedure (Right) Manda Dorantes MD, MPH Phone: tel: fax: mailto:[email or web address] Referral ID Status Reason Start Date Expiration Date Visits Re quested Visits Authorized [id number] Closed 02/10/2021 02/10/2022 1 1 * Outpatient Procedure - Closed Specialty Diagnoses / Procedures Referred By Kenyon vann Referred To Contact Radiology Diagnoses Breast calcification, right Procedures Mammogram Stereotactic Breast Core Biopsy (Right) Manda Dorantes MD, MPH Phone: tel: fax: mailto:[email or web address] Referral ID Status Reason Start Date Expiration Date Visits Re quested Visits Authorized [id number] Closed 02/10/2021 02/10/2022 1 1 Encounter Details Date Type Department Care Team (Late st Contact Info) Description 02/10/2021 Ancillary Orders [facility] Breast Imaging, [address] [address] Manda Dorantes MD, MPH 15 [place] [address] [email or web address] Breast calcification, right Social History Tobacco Use Types Packs/Day Years [...] high school, GED, job training, learning the Nigerien language, technical skills, or developing parenting skills)? [...] Info) Description 10/23/2024 8:00 AM EDT Appointment [facility] Nuclear Medicine [address] [place] [address] Tanvi English MD, DrPH 55 [facility] [address] [place] [address] [email or web address] 10/24/2024 2:30 PM EDT Telemedicine [facility] 15 [facility], [facility] 815 [place] [address] Jeremias Lawrence MD [address] [place] [address] 8 [place] [address] [email or web address] 11/07/2024 9:00 AM EDT Telemedicine [facility] 15 [facility], [address] [place] [address] Jeremias Lawrence MD [address] [place] [address] 8 [place] [address] [email or web address] 12/13/2024 8:30 AM EDT Telemedicine [facility] Weight Center [address] [facility] [address] [place] [address] Sammy Groves MD 50 [facility], 4th [address] [place] [address] [email or web address] 01/08/2025 12:35 PM EST Office Visit [facility] Diabetes Center 50 [facility] [address] [place] [address] Timbo Calle MD [address] [place] [address] [address] [place] [address] [email or web address] documented as of this encounter Results * BI MAMMOGRAM DIAGNOSTIC POST PROCEDURE NO TOMOSYNTHESIS NO CAD (RIGHT) (02/11/2021 11:28 AM EST) Anatomical Region Laterality Modality Breast Right, Breast Bilateral Right M ammography 02/11/2021 Addenda Addendum by Christine Tubbs MD, MSc on 02/13/2021 9:46 AM EST ADDENDED REPORT 02/13/2021 at 08:36:48 Addendum: Histopathology from the stereotactic / tomosynthesis guided core biopsy of the right breast reveals: FINAL PATHOLOGIC DIAGNOSIS: A. RIGHT BREAST, CORE BIOPSY WITH CALCIFICATIONS: Benign breast tissue with few hyalinized microcysts with associated calcifications. Pathology is benign and concordant with imaging. Recommend return to routine annual screening. The results and recommendation were discussed with the patient via phone by Dr. Ocampo on 02/13/2021. Impressions 02/11/2021 11:50 AM EST Successful stereotactic core biopsy of calcifications involving the right breast. A clip was placed at the site of biopsy. As the attending physician, I was present for fung portions of the procedure and otherwise immediately available. Narrative 02/11/2021 11:50 AM EST STEREOTACTIC / TOMOSYNTHESIS GUIDED CORE BIOPSY - right - clip placed: HISTORY: 45 year old female, presents for biopsy of right breast calcifications. COMPARISON: Previous mammograms. PROCEDURE: The procedure was explained in detail to the patient, all questions were answered, and written informed consent was obtained. A pre-procedure time-out was performed using two patient identifiers, confirming patient identity and procedure to be performed. The correct side was marked. Using sterile technique, local anesthesia was achieved with 1% lidocaine. Under stereotactic / tomosynthesis guidance, using a vacuum-assisted biopsy device, multiple core biopsies were obtained of the calcifications in the upper outer quadrant of the right breast and sent to pathology. Specimen radiograph confirms the presence of the calcifications in the tissue specimens. A buckle clip was subsequently placed at the site of biopsy. The needle was then removed and hemostasis achieved. Post-procedure mammography demonstrates marketing development representative sampling of the calcifications and accurate deployment of the clip. The patient tolerated the procedure well with no immediate complications and was discharged to home with the standard post-core biopsy instruction sheet. Procedure Note Christine Tubbs MD, MSc - 02/11/2021 STEREOTACTIC / TOMOSYNTHESIS GUIDED CORE BIOPSY - right - clip placed: HISTORY: 45 year old female, presents for biopsy of right breastcalcifications. COMPARISON: Previous mammograms. PROCEDURE: The procedure was explained in detail to the patient, all questions wereanswered, and written informed consent was obtained. A vda-[id number]-[id number] was performed using two patient identifiers, confirming patientidentity and procedure to be performed. The correct side was marked. Using sterile technique, local anesthesia was achieved with 1% lidocaine.Under stereotactic / tomosynthesis guidance, using a vacuum-assistedbiopsy device, multiple core biopsies were obtained of the calcificationsin the upper outer quadrant of the right breast and sent to pathology. Specimen radiograph confirms the presence of the calcifications in thetissue specimens. A buckle clip was subsequently placed at the site of biopsy. The needlewas then removed and hemostasis achieved. Post-procedure mammography demonstrates marketing development representative sampling of thecalcifications and accurate deployment of the clip. The patient tolerated the procedure well with no immediate complicationsand was discharged to home with the standard post-core biopsy instructionsheet. IMPRESSION: Successful stereotactic core biopsy of calcifications involving the right breast. A clip was placed at the site of biopsy. As the attending physician, I was present for fung portions of theprocedure and otherwise immediately available. us Manda Dorantes MD, MPH IMG MG EXAMS Edited Result - Final * BI MAMMOGRAM STEREOTACTIC BREAST CORE BIOPSY WITH TOMOSYNTHESIS (RIGHT) (02/11/2021 11:00 AM EST) Anatomical Region Laterality Modality Breast Right, Breast Bilateral Right M ammography 02/11/2021 Addenda Addendum by Christine Tubbs MD, MSc on 02/13/2021 9:46 AM EST ADDENDED REPORT 02/13/2021 at 08:36:48 Addendum: Histopathology from the stereotactic / tomosynthesis guided core biopsy of the right breast reveals: FINAL PATHOLOGIC DIAGNOSIS: A. RIGHT BREAST, CORE BIOPSY WITH CALCIFICATIONS: Benign breast tissue with few hyalinized microcysts with associated calcifications. Pathology is benign and concordant with imaging. Recommend return to routine annual screening. The results and recommendation were discussed with the patient via phone by Dr. Ocampo on 02/13/2021. Impressions 02/11/2021 11:50 AM EST Successful stereotactic core biopsy of calcifications involving the right breast. A clip was placed at the site of biopsy. As the attending physician, I was present for fung portions of the procedure and otherwise immediately available. Narrative 02/11/2021 11:50 AM EST STEREOTACTIC / TOMOSYNTHESIS GUIDED CORE BIOPSY - right - clip placed: HISTORY: 45 year old female, presents for biopsy of right breast calcifications. COMPARISON: Previous mammograms. PROCEDURE: The procedure was explained in detail to the patient, all questions were answered, and written informed consent was obtained. A pre-procedure time-out was performed using two patient identifiers, confirming patient identity and procedure to be performed. The correct side was marked. Using sterile technique, local anesthesia was achieved with 1% lidocaine. Under stereotactic / tomosynthesis guidance, using a vacuum-assisted biopsy device, multiple core biopsies were obtained of the calcifications in the upper outer quadrant of the right breast and sent to pathology. Specimen radiograph confirms the presence of the calcifications in the tissue specimens. A buckle clip was subsequently placed at the site of biopsy. The needle was then removed and hemostasis achieved. Post-procedure mammography demonstrates marketing development representative sampling of the calcifications and accurate deployment of the clip. The patient tolerated the procedure well with no immediate complications and was discharged to home with the standard post-core biopsy instruction sheet. Procedure Note Christine Tubbs MD, MSc - 02/11/2021 STEREOTACTIC / TOMOSYNTHESIS GUIDED CORE BIOPSY - right - clip placed: HISTORY: 45 year old female, presents for biopsy of right breastcalcifications. COMPARISON: Previous mammograms. PROCEDURE: The procedure was explained in detail to the patient, all questions wereanswered, and written informed consent was obtained. A vpx-bifizbfyuoeti-ozt was performed using two patient identifiers, confirming patientidentity and procedure to be performed. The correct side was marked. Using sterile technique, local anesthesia was achieved with 1% lidocaine.Under stereotactic / tomosynthesis guidance, using a vacuum-assistedbiopsy device, multiple core biopsies were obtained of the calcificationsin the upper outer quadrant of the right breast and sent to pathology. Specimen radiograph confirms the presence of the calcifications in thetissue specimens. A buckle clip was subsequently placed at the site of biopsy. The needlewas then removed and hemostasis achieved. Post-procedure mammography demonstrates marketing development representative sampling of thecalcifications and accurate deployment of the clip. The patient tolerated the procedure well with no immediate complicationsand was discharged to home with the standard post-core biopsy instructionsheet. IMPRESSION: Successful stereotactic core biopsy of calcifications involving the right breast. A clip was placed at the site of biopsy. As the attending physician, I was present for fung portions of theprocedure and otherwise immediately available. us Manda Dorantes MD, MPH IMG BI IRP GUIDED BREAST PROC Edited Result - Final documented in this encounter Visit Diagnoses Diagnosis Breast calcification, right Other (abnormal) findings on radiological examination of breast Breast calcification, right Other (abnormal) findings on radiological examination of breast Breast calcification, right Other (abnormal) findings on radiological examination of breast documented in this encounter Additional Health Concerns [...] documented as of this encounter Care Teams Health Sciences Manager Relationship Specialty Start Date End Date Manda Dorantes MD, MPH [address] [place] [address] [email or web address] PCP - General Internal Medicine 01/01/17 Manda Dorantes MD, MPH [address] [place] [address] [email or web address] Attributed Provider 03/13/17 06/24/23 Raoul Nogueira MD [address] [place] [address] [email or web address] Insurance Assigned Provider 01/31/21 04/25/22 Raoul Nogueira MD [address] [place] [address] [email or web address] Insurance Assigned Provider 05/23/22 06/20/22 documented as of this encounter Additional Source Comments The information contained in this document represents components of the legal health record. It is not the complete legal health record.[facility]
--- OUTSIDE RECORDS SUMMARY | 2024-10-14 01:23 | XMS_ITS | Encounter Summary ---
Author Organization [facility] Address [address] [place] [address] Phone Care Team Providers Care Hot Box Operator Name Role Phone Manda Dorantes MD, MPH Primary Care Provider [phone] Encounter Details Date Type Department Care Team (Late st Contact Info) Description 10/13/2024 Telephone [facility] [address] [facility], [address] [place] [address] Jeremias Lawrence MD 55 [facility] 8 [place] [address] [email or web address] Social History Tobacco Use Types Packs/Day Years [...] high school, GED, job training, learning the Tongan language, technical skills, or developing parenting skills)? [...] have you moved in the past 12 mon ths? Unable to assess 10/09/2024 Paying for [...] Info) Description 10/23/2024 8:00 AM EDT Appointment [facility] 55 [place] [address] Tanvi English MD, DrPH 55 [facility] [address] [place] [address] [email or web address] 10/24/2024 2:30 PM EDT Telemedicine [facility] [address] [facility], [address] [place] [address] Jeremias Lawrence MD [address] [place] [address] 8 [place] [address] [email or web address] 11/07/2024 9:00 AM EDT Telemedicine [facility] [address] [facility], [address] [place] [address] Jeremias Lawrence MD [address] [place] [address] 8 [place] [address] [email or web address] 12/13/2024 8:30 AM EDT Telemedicine [facility] [address] [facility] [address] [place] [address] Sammy Groves MD 50 [facility], 4th Floor [address] [place] [address] [email or web address] 01/08/2025 12:35 PM EST Office Visit [facility] [address] [facility] [address] [place] [address] Timbo Calle MD 55 [facility] [address] [place] [address] [email or web address] documented as of this encounter Visit Diagnoses Not on filedocumented in this encounter Additional Health Concerns Assessment Noted Time PHQ-9 Depression Total Score: 0 08/27/19 23 7:30 AM EDT PHQ-2 Depression Total Score: 0 12/29/20 24 4:51 PM EST documented as of this encounter Care Teams Hot Box Operator Relationship Specialty Start Date End Date Manda Dorantes MD, MPH 15 [place] [address] [email or web address] PCP - General Internal Medicine 01/01/17 documented as of this encounter Additional Source Comments The information contained in this document represents components of the legal health record. It is not the complete legal health record.[facility]
--- OUTSIDE RECORDS SUMMARY | 2024-10-14 01:23 | XMS_ITS | Encounter Summary ---
Author Organization [facility] Address [address] [place] [address] Phone Care Team Providers Care Furnace Clerk Name Role Phone Manda Dorantes MD, MPH Primary Care Provider [phone] Encounter Details Date Type Department Care Team (Late st Contact Info) Description 12/21/2023 Procedure Pass [facility] Holter Lab [address] [facility], 5th Floor, [address] [place] [address] Social History Tobacco Use Types Packs/Day Years [...] high school, GED, job training, learning the Croatian language, technical skills, or developing parenting skills)? Yes 08/31/2023 Are you concerned about learning? Not on file 08/31/2023 Yes 08/31/2023 No 08/31/2023 Food Answer Date Recorded Within the past 6 months we worried whether our food would run out before we got money to buy more. Never True 08/31/2023 Within the past 6 months the food we bought just didn't last and we didn't have enough money to get more. Never True Residential Stability Answer Date Recor ded What is your housing situation today? I have kenya smith 08/31/2023 How many times have you move d in the past 12 months? Zero (I did not move) 08/31/2023 Paying for Meds Answer Date Recorded Do you have trouble paying for medicines? No 08/31/2023 Paying Utility Bills Answer Date Record ed Do you have trouble paying your heating or elect ricity bill? No 08/31/2023 Transportation Answer Date Recorded Has the lack of transportati on kept you from medical appointments or from getting medications? No 08/31/2023 Digital Access Answer Date Recorded No 08/31/2023 Yes 08/31/2023 Do you have reliable internet access at home? Ye s 08/31/2023 Do you have a device (e.g., phone, tablet, computer) with a working camera? Yes 08/31/2023 Comments No Sex and Gender Information Value Date Recorded Sex Assigned at Female 12/23/2023 7:45 PM EST Legal Sex Female 5:22 PM EST Gender Identity Female 12/23/2023 7:45 PM EST Sexual Orientation Straight 12/23/2023 7: 45 PM EST documented as of this encounter Plan of Treatment Upcoming Encounters Date Type Department Care Team (Late st Contact Info) Description 10/23/2024 8:00 AM EDT Appointment [facility] Nuclear Medicine [address] [place] [address] Tanvi English MD, DrPH [address] [address] [email or web address] 10/24/2024 2:30 PM EDT Telemedicine [address], [address] [place] [address] Jeremias Lawrence MD [address] [place] [phone] [email or web address] 11/07/2024 9:00 AM EDT Telemedicine [address], [address] [place] [address] Jeremias Lawrence MD 55 [facility] 8 [place] [address] [email or web address] 12/13/2024 8:30 AM EDT Telemedicine [facility] Weight Center [address] [facility] [address] [place] [address] Sammy Groves MD 50 [facility], 4th [address] [place] [address] [email or web address] 01/08/2025 12:35 PM EST Office Visit [facility] Diabetes [facility] [address] [facility] [address] [place] [address] Timbo Calle MD [address] [place] [address] [address] [place] [address] [email or web address] documented as of this encounter Visit Diagnoses Not on filedocumented in this encounter Additional Health Concerns Assessment Noted Time PHQ-9 Depression Total Score: 0 08/27/19 23 7:30 AM EDT PHQ-2 Depression Total Score: 0 08/31/19 24 10:24 AM EDT documented as of this encounter Care Teams Furnace Clerk Relationship Specialty Start Date End Date Manda Dorantes MD, MPH 15 [place] [address] [email or web address] PCP - General Internal Medicine 01/01/17 documented as of this encounter Additional Source Comments The information contained in this document represents components of the legal health record. It is not the complete legal health record.[facility]
--- OUTSIDE RECORDS SUMMARY | 2024-10-14 01:23 | XMS_ITS | Encounter Summary ---
Author Organization [facility] Address [address] [place] [address] Phone Care Team Providers Care Linotype Worker Name Role Phone Manda Dorantes MD, MPH Primary Care Provider Manda Dorantes MD, MPH Unavailable [phone] Raoul Nogueira MD Unavailable [phone] Raoul Nogueira MD Unavailable [phone] Reason for Visit * Reason Comments Medication Refill Encounter Details Date Type Department Care Team (Late st Contact Info) Description 02/08/2022 Refill [facility] [address] [facility], [address] [place] [address] Trevon Sierra MD [address] [place] [address] for Bipolar Treatment and [facility] [address] [place] [address] [email or web address] Medication Refill Social History Tobacco Use Types [...] high school, GED, job training, learning the Irish language, technical skills, or developing parenting skills)? [...] Info) Description 10/23/2024 8:00 AM EDT Appointment [facility] [place] [place] Medicine [address] [place] [address] Tanvi English MD, DrPH [address] [address] [email or web address] 10/24/2024 2:30 PM EDT Telemedicine [facility] [address] [facility], [address] [place] [address] Jeremias Lawrence MD [address] [place] [address] [email or web address] 11/07/2024 9:00 AM EDT Telemedicine [address], [address] [place] [address] Jeremias Lawrence MD [address] [place] [address] [email or web address] 12/13/2024 8:30 AM EDT Telemedicine [facility] [place] [place] [facility] 50 [facility] [address] [place] [address] Sammy Groves MD 50 [facility], 4th [address] [place] [address] [email or web address] 01/08/2025 12:35 PM EST Office Visit [facility] [place] [place] [facility] 50 [facility] 340 [place] [address] Timbo Calle MD 55 [facility] [address] [place] [address] [email or web address] documented as of this encounter Visit Diagnoses Diagnosis Recurrent major depressive disorder, in full remission documented in this encounter Additional Health Concerns Assessment Noted Time PHQ-2 Depression Total Score: 0 01/13/20 22 9:12 AM EST documented as of this encounter Care Teams Linotype Worker Relationship Specialty Start Date End Date Manda Dorantes MD, MPH [address] [place] [id number] [email or web address] PCP - General Internal Medicine 01/01/17 Manda Dorantes MD, MPH [address] [place] [address] [email or web address] Attributed Provider 03/13/17 06/24/23 Raoul Nogueira MD [address] [place] [phone] Insurance Assigned Provider 01/31/21 04/25/22 Raoul Nogueira MD [address] [place] [address] [email or web address] Insurance Assigned Provider 05/23/22 06/20/22 documented as of this encounter Additional Source Comments The information contained in this document represents components of the legal health record. It is not the complete legal health record.[facility]
--- OUTSIDE RECORDS SUMMARY | 2024-10-14 01:23 | XMS_ITS | Clinical Summary ---
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 subcutaneous insulin pump (T:SLIM X2 CONTROL-IQ MISC) by Miscellaneous route. Active insulin aspart U-100 (NOVOLOG) 100 unit/mL injection vial Inject under the skin as needed. INJECT UP TO 150 UNITS DAILY OR DIRECTED VIA INSULIN PUMP Active blood sugar diagnostic Strp strips 1 each by Miscellaneous route as needed. Active glucagon (GVOKE) 1 mg/0.2 mL subcutaneous auto-injectorIn dications:Type 1 diabetes mellitus with other specified complication Inject 0.2 mL (1 mg total) under the skin once as needed for low blood sugar (provide value). 0.2 mL 2 024 Active REPATHA SYRINGE 140 mg/mL subcutaneous syringe INJECT 1ML UNDER THE SKIN EVERY 14 DAYS 6 mL 3 Active blood-glucose sensor (DEXCOM G7 SENSOR) Nancy 1 kit by Miscellaneous route as directed. Change every 10 days 9 each 3 Active semaglutide, weight loss, (WEGOVY) 1 mg/0.5 mL subcutaneous injectionIndica tions:History of Joao-en-Y gastric bypass,History of obesity Inject 0.5 mL (1 mg total) under the skin once a week. Start after completing 4 weeks of Wegovy 0.5 mg 2 mL 5 Active levothyroxine (SYNTHROID, LEVOTHROID) 150 MCG tabletIndicatio ns:Hypothyroidi sm due to Estevan's thyroiditis Take 1 tablet (150 mcg total) by mouth every morning. 90 tablet 3 2025 Active gabapentin (NEURONTIN) 100 MG capsule Take 1 capsule (100 mg total) by mouth 2 (two) times a day as needed (Anxiety, Sleep). Can take 2 to 3 tabs if needed for a dose of 200-300 mg 30 capsule 2 Active LORazepam (ATIVAN) 0.5 MG tablet Take 1 tablet (0.5 mg total) by mouth daily as needed for anxiety. 30 tablet 1 2024 Active FLUoxetine (PROZAC) 20 MG capsule Take 1 capsule (20 mg total) by mouth daily. 60 capsule 1 2024 Active FLUoxetine (PROZAC) 40 MG capsule Take 1 capsule (40 mg total) by mouth daily. 90 capsule 1 Active traZODone (DESYREL) 50 MG tabletIndicatio ns:insomnia associated with depression Take 1 tablet (50 mg total) by mouth nightly at bedtime. Indications: insomnia associated with depression 30 tablet 1 Active FLUoxetine (PROZAC) 40 MG capsule TAKE 2 CAPSULES BY MOUTH DAILY 180 capsule 2 025 2024 Discontinued LORazepam (ATIVAN) 0.5 MG tablet Take 1 tablet (0.5 mg total) by mouth daily as needed for anxiety. 30 tablet 1 025 2024 Discontinued(R eorder) Active Problems Patient Care Coordination No te Formatting of this note migh t be different from the original. Trauma-Informed Care Plan (Do Not Delete) Updated Individualized Crisis Prevention Plan This Trauma-informed Plan was created on 01/10/24 and updated on 01/11/24. This support plan is to be used as a proactive guide to understand this patient's specific needs. See Nursing Communication Orders for suggested emergency medication 1:1 (sit at door way) for fall risk and to monitor for any odd/unsafe behavior Aggressive Behaviors 01/08/24: Threw a cup of hot soup at the sitter 01/08/24: Threw a bottle of water at the RN Triggers that lead to Escalation To be further evaluated Warning Signs & Signs of Crisis Strategies for Calming/Sensory Needs Non-male staff Communication Strategies Sensory Needs To be further evaluated: pt declined trial of sensory tools on 01/11/24. 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 At the time of admission, the patient had been treated with olanzapine and ECT while on the medicine unit. She initially had a robust response to both, but then regressed shortly after starting. She completed 2 ECT sessions with mixed results while on the medicine floors, which was discontinued given unclear underlying diagnosis and severe constipation (c/f aspiration). The patient has a history of a possibly anoxic brain injury in 2011 attempt as well as multiple micronutrient deficiencies (see below), both of which could be contributing to impulsivity and abnormal presentation. Her medication treatment included haldoperidol, lorazepam, fluoxetine, and mirtazapine. Olanzapine (which she was taking on the medicine unit) was transitioned to Haldol on admission given urinary retention and concern for possible anticholinergic effects. Haldol was initiated to target agitation and possible psychotic features of depression and up-titrated to a max of 10 mg, later discontinued by time of discharge. The patient's home buproprion was discontinued given her increased anxiety and agitation. The patient's home fluoxetine was increased to 80 mg. Mirtazapine was initiated and up-titrated to 30 mg for mood augmentation to help with sleep/appetite. Memantine/methylphenydate/amantadine were recommended to her as other mood augmenting agents, which she declined, but could be considered in the future. She briefly took lorazepam, max dose 1 mg TID, to manage anxiety, which was tapered and discontinued prior to discharge. No side effects were noted from her medications. ECT was resumed on 01/24, after which she completed a total of 7 sessions prior to discharge with good effect, with plans to continue ECT as an outpatient. Over the course of the hospitalization, patient displayed improvement in ability to complete ADLs, resolution of self harm/suicidal behaviors and ideation, brighter affect, spontaneous speech, better capacity for eating and drinking. Patient was discharged to home with a plan to continue medications as above, ECT, and follow up with her outpatient psychiatrist, PCP, and therapist. Patient is at chronic moderate baseline risk for harm to self or others based on history of prior suicide attempts, chronic medical illness, severe mental illness, high impulsivity. At time of discharge, acute risk factors have resolved and acute risk for harm to self or others is no longer elevated above chronic baseline. There is currently no evidence that the patient posed an imminent risk of danger to self or others if released to community today. The patient has developed a self-care and safety plan, has decision-making capacity, and agrees with discharge and aftercare plans. Since discharge, she is feeling well. Mood is stable. Discussed role of exercise in mood stability- recently set up an exercise room at home with a treadmill, weights. She plans to start using the equipment. A/P: Stable mood and MS after recent inpatient psychiatric hospitalization - ECT and psychiatry follow up scheduled - medication regimen at time of discharge: --- fluoxetine 80mg qd --- remeron 30mg nightly --- melatonin 10mg nightly --- lorazepam 0.5mg prn (prescribed 7 tabs with one refill) - add exercise into routine Orthostatic hypotension 01/01/2024 Assessment & Plan (01/03/2024 6:32 PM EST): Pt with reported dizziness post shower. Sbp in the 70's. Returned to high 80's after laying down. Most likely related to deconditioning and hypovolemia. Otherwise considered infection in the setting of bump in leukocytosis on AM labs. Leukocytosis resolved in subsequent days. Though patient remained afebrile. UA was sent in setting of recent retention but was benign. Pt recently started ECT raising risk for aspiration but chest xray clear did show a new small pleural effusion. No history of HF and pt is on RA with no sign of volume overload. 01/02 pt experienced fall while walking to stretcher. B/p stable no concern for orthostasis. Most likely related to weakness - Repeat chest x-ray out pt to monitor pleural effusion Assessment & Plan (01/02/2024 4:04 PM EST): Pt with reported dizziness post shower. Sbp in the 70's. Returned to high 80's after laying down. Most likely related to deconditioning and hypovolemia. Otherwise considered infection in the setting of bump in leukocytosis on AM labs. Though patient remained afebrile. UA was sent in setting of recent retention but was benign. Pt recently started ECT raising risk for aspiration but chest xray clear did show a ne small pleural effusion. No history of HF and pt is on RA with no sign of volume overload. - Repeat chest x-ray out pt to monitor pleural effusion Assessment & Plan (01/01/2024 6:46 PM EST): Pt with reported dizziness in the setting of showering in the bathroom. Sbp in the 70's. Returned to high 80's after laying down. Most likely related to deconditioning and hypovolemia. Otherwise considered infection in the setting of bump in leukocytosis on AM labs. Though patient remained afebrile. UA was sent in setting of recent retention but was benign. Pt recently started ECT raising risk for aspiration but chest xray clear did show a ne small pleural effusion. No history of HF and pt is on RA with no sign of volume overload. Will add BNP to am labs and continue to monitor. Urinary retention 12/31/2023 Assessment & Plan (01/03/2024 6:32 PM EST): Attributed to possible anticholinergic toxicity. Temporarily required castrejon but passed voiding trial 12/29. Has required straight cath on 12/30, 01/01. UA negative for UTI. Spoke to psych about anticholinergic effects of Zyprexa, but considered less likely cause as dose low. Will trial lower dose during day time. Will not place indwelling castrejon. Risk for self harm too high in this patient. Will continue straight cath as need, increase time to bladder scans q8 hour checks to give patient more time to get urge to void. - F/u UA - monitor with bladder scan Q8 Hr, --PRN straight cath for scan >600, give pt more time to void especially overnight unless pt symptomatic - Per psych decrease schedule Seroquel to PRN; keep nightly dose the same and monitor Assessment & Plan (01/02/2024 4:04 PM EST): Attributed to possible anticholinergic toxicity. Temporarily required castrejon but passed voiding trial 12/29. Has required straight cath on 12/30, 01/01. UA negative for UTI. Spoke to psych about anticholinergic effects of Zyprexa, but considered less likely cause as dose low. Risk for self harm too high in this patient. Will continue straight cath as need, increase time to bladder scans q8 hour checks to give patient more time to get urge to void. - F/u UA - monitor with bladder scan Q8 Hr, --PRN straight cath for scan >600, give pt more time to void especially overnight unless pt symptomatic Assessment & Plan (01/01/2024 6:46 PM EST): Attributed to possible anticholinergic toxicity. Temporarily required castrejon but passed voiding trial 12/29 but required straight cath on 12/30. In setting of hypotension this morning will send UA to check for UTI. - F/u UA - monitor with bladder scan Q6 Hr, PRN straight cath Assessment & Plan (12/31/2023 1:18 PM EST): Attributed to possible anticholinergic toxicity. Temporarily required castrejon but passed voiding trial 12/29 - monitor with bladder scan Q6 Hr, PRN straight cath Iatrogenic hyperthyroidism 12/27/2023 Assessment & Plan (01/03/2024 6:32 PM EST): #Hx hypothyroidism Prescribed synthroid 150mcg daily Wed-Sat and 300mcg on Sundays but recently lost a lot of weight while on Wegovy. Patient presented to the ED two days prior to current admission due to HTN, chest pressure, palpitation, and anxiety. TFTs at that time showed normal TSH but elevated freeT4 and totalT4. Per discussion with her outpatient laser beam trim operator, her levothyroxine dose is likely too high for her given significant weight loss past year. Possible that high dose levothyroxine may have contributed her restlessness, anxiety, and insomnia. - Discussed with Dr. Nogueira (Endocrinology) - decreased levothyroxine dose to 125mcg daily - Repeat TSH, T4, fT4, T3 in 4-6 weeks (refer results to Dr. Nogueira to review). Assessment & Plan (01/02/2024 4:04 PM EST): #Hx hypothyroidism Prescribed synthroid 150mcg daily Wed-Sat and 300mcg on Sundays but recently lost a lot of weight while on Wegovy. Patient presented to the ED two days prior to current admission due to HTN, chest pressure, palpitation, and anxiety. TFTs at that time showed normal TSH but elevated freeT4 and totalT4. Per discussion with her outpatient laser beam trim operator, her levothyroxine dose is likely too high for her given significant weight loss past year. Possible that high dose levothyroxine may have contributed her restlessness, anxiety, and insomnia. - Discussed with Dr. Nogueira (Endocrinology) - decreased levothyroxine dose to 125mcg daily - Repeat TSH, T4, fT4, T3 in 4-6 weeks (refer results to Dr. Nogueira to review). Assessment & Plan (01/01/2024 6:46 PM EST): #Hx hypothyroidism Prescribed synthroid 150mcg daily Mon-Sat and 300mcg on Sundays but recently lost a lot of weight while on Wegovy. Patient presented to the ED two days prior to current admission due to HTN, chest pressure, palpitation, and anxiety. TFTs at that time showed normal TSH but elevated freeT4 and totalT4. Per discussion with her outpatient laser beam trim operator, her levothyroxine dose is likely too high for her given significant weight loss past year. Possible that high dose levothyroxine may have contributed her restlessness, anxiety, and insomnia. - Discussed with Dr. Nogueira (Endocrinology) - decreased levothyroxine dose to 125mcg daily - Repeat TSH, T4, fT4, T3 in 4-6 weeks (refer results to Dr. Nogueira to review). Assessment & Plan (12/31/2023 1:35 PM EST): #Hx hypothyroidism Prescribed synthroid 150mcg daily Mon-Sat and 300mcg on Sundays but recently lost a lot of weight while on Wegovy. Patient presented to the ED two days prior to current admission due to HTN, chest pressure, palpitation, and anxiety. TFTs at that time showed normal TSH but elevated freeT4 and totalT4. Per discussion with her outpatient laser beam trim operator, her levothyroxine dose is likely too high for her given significant weight loss past year. Possible that high dose levothyroxine may have contributed her restlessness, anxiety, and insomnia. - Discussed with Dr. Nogueira (Endocrinology) - decreased levothyroxine dose to 125mcg daily - Repeat TSH, T4, fT4, T3 in 4-6 weeks (refer results to Dr. Nogueira to review). Assessment & Plan (12/28/2023 4:23 PM EST): #Hx hypothyroidism Elevated TSH in 2021 and has been on levothyroxine for hypothyroidism. Prescribed 150mcg daily Mon-Sat and 300mcg on Sundays. She recently lost significant amount of weight while on Wegovy. Patient presented to the ED two days prior to current admission due to HTN, chest pressure, palpitation, and anxiety. TFTs at that time showed normal TSH but elevated freeT4 and totalT4. Per discussion with her outpatient laser beam trim operator, her levothyroxine dose is likely too high for her given significant weight loss past year. Possible that high dose levothyroxine may have contributed her restlessness, anxiety, and insomnia. - Discussed with Dr. Nogueira (Endocrinology) - decreased levothyroxine dose to 125mcg daily - Anticipate repeat TSH, T4, fT4, T3 in 1 week (refer results to Dr. Nogueira to review), then anticipate repeat studies 4-6 weeks. Assessment & Plan (12/27/2023 12:44 PM EST): # Hx Hypothyroidism: Elevated TSH in 2021 and has been on levothyroxine for hypothyroidism. Prescribed 150mcg daily and 300mcg on Sundays. She recently lost significant amount of weight while on Wegovy. Patient presented to the ED two days ago due to HTN, chest pressure, palpitation, and anxiety. TFTs showed normal TSH but elevated freeT4 and totalT4. After discussing with her outpatient laser beam trim operator, her levothyroxine does appears high for her given significant weight loss past year and seems possible the patient's high dose levothyroxine may have contributed her restlessness, anxiety, and insomnia. Query normal TSH (2.0) with elevated T4, fT4. - Previously discussed with Dr. Nogueira (Endocrinology) - decreased levothyroxine dose to 125mcg daily - Anticipate repeat TSH, T4, fT4, T3 in 1 week (refer results to Dr. Nogueira to review), then anticipate repeat studies 4-6 weeks. Ingestion of substance, inte ntional self-harm, initial encounter 12/25/2023 Assessment & Plan (01/03/2024 6:32 PM EST): #Generalized anxiety disorder #MDD Patient has previous psychiatric admissions and suicide attempt and been see by psychiatrist regularly. Presented to the ED for intentional overdosed of hydroxyzine, clonazepam, and lorazepam. She was placed under section 12a and improved with replacement of electrolytes and Qtc monitoring (with guidance from poison control). Course c/b suicide attempt with self-injection of ~300 units of novolog requiring step-up to MICU 12/27 for refractory hypoglycemia. [facility] is following closely, and due to refractory suicidal ideation with repeated attempts during admission, ECT started inpatient (after cardiology risk assessment) while awaiting psychiatric admission. - Appreciate Psych recommendations - ECT session 12/30 and today 01/02 - Home prozac and wellbutrin - Olanzapine scheduled 5 mg QHS - Olanzapine 2.5 BID (am and afternoon changed to PRN --Monitor daily QTc - Continue belsomra 10 mg QHS - For non-redirectable anxiety or agitation (including if needed during suicide attempt to ensure patient safety): olanzapine 2.5 mg Q6 hr PRN (PO/SL/IV) - Hold home trazodone 50mg daily, lorazepam 0.5mg TID prn, hydroxyzine 25mg TID prn - Document all SI/SA attempts that occur in-house and notify inpatient psychiatric team (or APS if occur overnight) Assessment & Plan (01/02/2024 4:04 PM EST): #Generalized anxiety disorder #MDD Patient has previous psychiatric admissions and suicide attempt and been see by psychiatrist regularly. Presented to the ED for intentional overdosed of hydroxyzine, clonazepam, and lorazepam. She was placed under section 12a and improved with replacement of electrolytes and Qtc monitoring (with guidance from poison control). Course c/b suicide attempt with self-injection of ~300 units of novolog requiring step-up to MICU 12/27 for refractory hypoglycemia. [facility] is following closely, and due to refractory suicidal ideation with repeated attempts during admission, ECT started inpatient (after cardiology risk assessment) while awaiting psychiatric admission. - Appreciate Psych recommendations - S/p first ECT session 12/30 - Home prozac and wellbutrin - Olanzapine scheduled 2.5 mg QAM, 2.5 mg Q2PM, 5 mg QHS (PO/SL/IV) --Monitor daily QTc - Continue belsomra 10 mg QHS - For non-redirectable anxiety or agitation (including if needed during suicide attempt to ensure patient safety): olanzapine 2.5 mg Q6 hr PRN (PO/SL/IV) - Hold home trazodone 50mg daily, lorazepam 0.5mg TID prn, hydroxyzine 25mg TID prn - Document all SI/SA attempts that occur in-house and notify inpatient psychiatric team (or APS if occur overnight) Assessment & Plan (01/01/2024 6:46 PM EST): #Generalized anxiety disorder #MDD Patient has previous psychiatric admissions and suicide attempt and been see by psychiatrist regularly. Presented to the ED for intentional overdosed of hydroxyzine, clonazepam, and lorazepam. She was placed under section 12a and improved with replacement of electrolytes and Qtc monitoring (with guidance from poison control). Course c/b suicide attempt with self-injection of ~300 units of novolog requiring step-up to MICU 12/27 for refractory hypoglycemia. [facility] is following closely, and due to refractory suicidal ideation with repeated attempts during admission, ECT started inpatient (after cardiology risk assessment) while awaiting psychiatric admission. - appreciate psych management, will follow up further recs - s/p first ECT session today 12/30 - Home prozac and wellbutrin - Olanzapine scheduled 2.5 mg QAM, 2.5 mg Q2PM, 5 mg QHS (PO/SL/IV) --monitor daily QTc- today was corrected with Prince formula to 482 - continue belsomra 10 mg QHS - for non-redirectable anxiety or agitation (including if needed during suicide attempt to ensure patient safety): olanzapine 2.5 mg Q6 hr PRN (PO/SL/IV) - Hold home trazodone 50mg daily, lorazepam 0.5mg TID prn, hydroxyzine 25mg TID prn - Document all SI/SA attempts that occur in-house and notify inpatient psychiatric team (or APS if occur overnight) Assessment & Plan (12/31/2023 1:18 PM EST): #Generalized anxiety disorder #MDD Patient has previous psychiatric admissions and suicide attempt and been see by psychiatrist regularly. Presented to the ED for intentional overdosed of hydroxyzine, clonazepam, and lorazepam. She was placed under section 12a and improved with replacement of electrolytes and Qtc monitoring (with guidance from poison control). Course c/b suicide attempt with self-injection of ~300 units of novolog requiring step-up to MICU 12/27 for refractory hypoglycemia. [facility] is following closely, and due to refractory suicidal ideation with repeated attempts during admission, ECT is being started inpatient (after cardiology risk assessment) while awaiting psychiatric admission. - appreciate psych management, will follow up further recs - s/p first ECT session today 12/30 - Home prozac and wellbutrin - Olanzapine scheduled 2.5 mg QAM, 2.5 mg Q2PM, 5 mg QHS (PO/SL/IV) - continue belsomra 10 mg QHS - for non-redirectable anxiety or agitation (including if needed during suicide attempt to ensure patient safety): olanzapine 2.5 mg Q6 hr PRN (PO/SL/IV) - Hold home trazodone 50mg daily, lorazepam 0.5mg TID prn, hydroxyzine 25mg TID prn - Document all SI/SA attempts that occur in-house and notify inpatient psychiatric team (or APS if occur overnight) Assessment & Plan (12/28/2023 4:23 PM EST): #Generalized anxiety disorder #MDD Patient has previous psychiatric admissions and suicide attempt and been see by psychiatrist regularly. Last time seen was 10/2023 without overt symptoms of rome, psychosis, or MDD. Per her , patient has been quite restless and anxious past week or so, could not sleep at night. She also reported palpitation and heat intolerance. On presentation to the ED after she was found to overdose hydroxyzine, clonazepam, and lorazepam (intentionally), patient was somnolent, mildly hypotensive and hypoxic. Poison control was consulted and recommended to replete electrolytes and serial EKG checks. Serial EKG monitored with mild QT prolongation 460 > 480ms. She received Mg, K, and IVF with clinical improvement. Patient was placed under section 12a. Course c/b SA with self-injection of ~300 units of novolog. Sugars trended down despite D10W and amps of D50 so decision made to transfer to ICU. After self-injection, psych was made aware, security was called for belongings search and storage. - Appreciate Psychiatry evaluation - query need for ECT in the future, Cardiology c/s for ECT optimization in the setting of prior STEMI. Cardiology cons 12/26/23 - patient deemed at acceptable risk to proceed for ECT as clinically indicated. - Hold home trazodone 50mg daily, lorazepam 0.5mg TID prn, hydroxyzine 25mg TID prn - Resume home wellbutrin and prozac - Continue telemetry and continuous o2 monitoring Assessment & Plan (12/27/2023 12:44 PM EST): # Generalized anxiety disorder: # MDD: Patient has previous psychiatric admissions and suicide attempt and been see by psychiatrist regularly. Last time seen was 10/2023 without overt symptoms of rome, psychosis, or MDD. Per her , patient has been quite restless and anxious past week or so, could not sleep at night. She also reported palpitation and heat intolerance. On presentation to the ED after she was found to overdose hydroxyzine, clonazepam, and lorazepam (intentionally), patient was somnolent, mildly hypotensive and hypoxic. Poison control was consulted and recommended to replete electrolytes and serial EKG checks. Serial EKG monitored with mild QT prolongation 460 > 480ms. She received Mg, K, and IVF with clinical improvement. Patient was placed under section 12a. - Appreciate Psychiatry evaluation - query need for ECT in the future, Cardiology c/s for ECT optimization in the setting of prior STEMI. Cardiology cons 12/26/23 - patient deemed at acceptable risk to proceed for ECT as clinically indicated. - Hold home psychiatric meds: bupropion 150mg daily, fluoxetine 60mg daily, and trazodone 50mg daily, as well as, lorazepam 0.5mg TID prn, hydroxyzine 25mg TID prn - Resume wellbutrin and prozac - Continue to monitor on telemetry, d/c pulse ox Assessment & Plan (12/26/2023 10:14 AM EST): # Generalized anxiety disorder # MDD Patient has previous psychiatric admissions and suicide attempt and been see by psychiatrist regularly. Last time seen was 10/2023 without overt symptoms of rome, psychosis, or MDD. Per her , patient has been quite restless and anxious past week or so, could not sleep at night. She also reported palpitation and heat intolerance. On presentation to the ED after she was found to overdose hydroxyzine, clonazepam, and lorazepam (intentionally), patient was somnolent, mildly hypotensive and hypoxic. Poison control was consulted who recommended to replete electrolytes and serial EKG checks. Serial EKG monitored with mild QT prolongation 460 > 480ms. She received Mg, K, and IVF with clinical improvement. Patient was placed under section 12a. Official psych evaluation is pending. - Psych consult performed, recc'd resuming wellbutrin and prozac. - requested cardiology c/s for ECT clearance given prior stemi - Hold home psychiatric meds: bupropion 150mg daily, fluoxetine 60mg daily, and trazodone 50mg daily, as well as, lorazepam 0.5mg TID prn, hydroxyzine 25mg TID prn - Continue to monitor EKG q4hrs - Continue to monitor on telemetry and pulse ox Assessment & Plan (12/25/2023 6:47 PM EST): # Generalized anxiety disorder # MDD Patient has previous psychiatric admissions and suicide attempt and been see by psychiatrist regularly. Last time seen was 10/2023 without overt symptoms of rome, psychosis, or MDD. Per her , patient has been quite restless and anxious past week or so, could not sleep at night. She also reported palpitation and heat intolerance. On presentation to the ED after she was found to overdose hydroxyzine, clonazepam, and lorazepam (intentionally), patient was somnolent, mildly hypotensive and hypoxic. Poison control was consulted who recommended to replete electrolytes and serial EKG checks. Serial EKG monitored with mild QT prolongation 460 > 480ms. She received Mg, K, and IVF with clinical improvement. Patient was placed under section 12a. Official psych evaluation is pending. - Psych consult is placed, saw the patient but was very somnolent and could not participate in interview, will see her in AM again - Hold home psychiatric meds: bupropion 150mg daily, fluoxetine 60mg daily, and trazodone 50mg daily, as well as, lorazepam 0.5mg TID prn, hydroxyzine 25mg TID prn - Continue to monitor EKG q4hrs - Continue to monitor on telemetry and pulse ox Known medical problems 12/25/2023 Assessment & Plan (01/03/2024 6:32 PM EST): #History of STEMI - Continue home ASA - Historically did not tolerate statin, on Repatha outpt; currently held while inpatient Assessment & Plan (01/02/2024 4:04 PM EST): #History of STEMI - Continue home ASA - Historically did not tolerate statin, on Repatha outpt; currently held while inpatient Assessment & Plan (01/01/2024 6:46 PM EST): #History of STEMI - Continue home ASA - Historically did not tolerate statin, on Repatha outpt; currently held while inpatient Assessment & Plan (12/31/2023 11:28 AM EST): #History of STEMI - Continue home ASA - Historically did not tolerate statin, on Repatha outpt; currently held while inpatient Assessment & Plan (12/28/2023 4:23 PM EST): #History of STEMI - Continue home ASA - Historically did not tolerate statin, on Repatha outpt; currently held while inpatient Assessment & Plan (12/27/2023 12:44 PM EST): # History of STEMI - continue home ASA, historically did not tolerate statin - on Repatha outpt - currently held Repatha while inpatient. Assessment & Plan (12/26/2023 10:14 AM EST): # History of STEMI - continue home ASA, hold Repatha while inpatient Assessment & Plan (12/25/2023 6:45 PM EST): # History of STEMI - continue home ASA, hold Repatha while inpatient Ear ache 08/18/2019 Assessment & Plan (08/18/2019 12:19 PM EDT): Complains of pain in ear for 2 days after jamming Q-tip into ear. No bleeding. No fever chills. Advised patient to go to urgent care for evaluation today or tomorrow Patient agrees Iron deficiency 07/06/2019 Fracture follow-up 09/09/2018 Closed right calcaneal fracture 08/15/2018 ST elevation myocardial infa rction involving left anterior descending (LAD) coronary artery 09/02/2017 Overview (08/31/2023): Presented to OSH with chest pain 07/19/17 with EKG changes, taken to labor conciliator. Found 99% stenosis at mid LAD, 2 MILKA placed. While in ICU, metorpolol changed to carvedilol; spironolactone, plavix ( stopped 2019), ASA, lipitor, lisinopril started. Echo showed 35% EF, now 58%. F/b Dr. Emilee Rodriguez. 08/31/2023 bASAdebbi. Unable to tolerate beta-blockers Latest ETT 01/2022 negative. Assessment & Plan (08/31/2023 10:48 AM EDT): Doing well, no chest pain, currently not exercising. She knows she has to restart walking/ exercise Assessment & Plan (03/10/2022 11:01 AM EST): Stable and doing great. Assessment & Plan (07/10/2021 12:21 PM EDT): Doing well! No recent cardiac symptoms or issues Assessment & Plan (12/17/2020 12:07 PM EDT): 1. Discussed protective benefits of glp-1 Assessment & Plan (07/05/2019 10:11 AM EDT): Will schedule f/u with Dr. Rodriguez Assessment & Plan (06/28/2018 2:51 PM EDT): Asymptomatic, doing well. Counseled on weight loss and increased exercise. Ischemic cardiomyopathy 09/02/2017 Overview (03/10/2022): S/p ST elevation [place] at OSH 2017, echo showed EF 35%. No arrhythmia detected during admission. D/c on carvedilol, lisinopril, bp excellent since significant weight loss Most recent echo 08/2020 shows nl EF and cardiac function. Remains on ASA, pravastatin. Assessment & Plan (03/10/2022 11:01 AM EST): Doing great. Assessment & Plan (07/10/2021 12:18 PM EDT): No new issues. Myocardial infarction 08/25/2017 Coronary artery disease 08/25/2017 Assessment & Plan (03/19/2019 2:45 PM EST): - GLP-1 indicated for prevention of further [place]/CAD Encounter for annual routine gynecological exami nation 02/19/2017 Overview (08/31/2023): , mirena IUD for contraception, placed 12/2019 no menses. Sexually active with . 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 He was hiding drinking 1 pint of vodka daily, was in an automobile accident, charged with DUI. S/p detox and 30 day program, now sober x 2 years. Completed school for [employer], now has a job. Completed couples therapy, sober 5 years in 2021. Assessment & Plan (07/10/2021 12:28 PM EDT): Doing well. Stressors have diminished and happy about her 's health Assessment & Plan (06/28/2018 2:41 PM EDT): Doing so well. Assessment & Plan (04/16/2017 9:21 AM EST): Making progress Contraceptive management 07/14/2016 Overview (07/14/2016): Contraceptive counselling. Service date: 04/03/2015. Author: Rozina Black MD. Comment: Has been on Depo-provera for years (since 1994). Discussed other LARC options, but she is happy with this method for now. She is amenorrheic. History of Joao-en-Y gastric bypass 07/14/2016 Overview (02/21/2024): S/p RYGB 01/2010 complicated with nutritional deficiencies Assessment & Plan (01/03/2024 6:32 PM EST): #RYGBP - 2011 #Concern for malnutrition Previously noted with low vitamin levels - Vit A, B6, E Reports ~ 90lbs weight loss after starting Wegovy. Continues to report anorexia with poor oral intake over several weeks per patient and - reporting some memory impairments and gait instability per . Will repeat routine nutritional labs given history of RYGBP and reported concerns from pt/family regarding cognition and gait instability. VitB12, iron wnl 12/21/2023. - - S/p IV thiamine 500 IV TID x 3d, continuing 100 mg Po daily - Micronutrients per nutrition recs (in note 12/17) - Increase MVI-M to BID - 1200 mg calcium - 500 mg b12 - 3000 units Vitamin D3 (only needs 3364-1505 units standalone since some is in MVI) - Calcium 1200 mg - 10,000 units Vit A daily x 14 days - Continue folic acid - Wegovy paused - Calorie counts - Nutrition consulted Assessment & Plan (01/02/2024 4:04 PM EST): #RYGBP - 2011 #Concern for malnutrition Previously noted with low vitamin levels - Vit A, B6, E Reports ~ 90lbs weight loss after starting Wegovy. Continues to report anorexia with poor oral intake over several weeks per patient and - reporting some memory impairments and gait instability per . Will repeat routine nutritional labs given history of RYGBP and reported concerns from pt/family regarding cognition and gait instability. VitB12, iron wnl 12/21/2023. - F/u Aislinn (low, 23.1), Vit D (normal, 26), Vit E (normal, 6.7), Niacin (in process), Vit B6 (in process), folate (normal, 8.4), Vit C (0.5), copper (normal, 81), zinc (normal, 73), selenium (normal, 126) - S/p IV thiamine 500 IV TID x 3d, continuing 100 mg Po daily - Micronutrients per nutrition recs (in note 12/17) - Increase MVI-M to BID - 1200 mg calcium - 500 mg b12 - 3000 units Vitamin D3 (only needs 8441-2392 units standalone since some is in MVI) - Continue folic acid - Wegovy paused - Calorie counts - Nutrition consulted prior to ICU step-up, will re-engage on arrival to floor Assessment & Plan (01/01/2024 6:46 PM EST): #RYGBP - 2011 #Concern for malnutrition Previously noted with low vitamin levels - Vit A, B6, E Reports ~ 90lbs weight loss after starting Wegovy. Continues to report anorexia with poor oral intake over several weeks per patient and - reporting some memory impairments and gait instability per . Will repeat routine nutritional labs given history of RYGBP and reported concerns from pt/family regarding cognition and gait instability. VitB12, iron wnl 12/21/2023. - F/u Aislinn (low, 23.1), Vit D (normal, 26), Vit E (normal, 6.7), Niacin (in process), Vit B6 (in process), folate (normal, 8.4), Vit C (0.5), copper (normal, 81), zinc (normal, 73), selenium (normal, 126) - s/p IV thiamine 500 IV TID x 3d, continuing 100 mg Po daily - Micronutrients per nutrition recs (in note 11) - Increase MVI-M to BID - 1200 mg calcium - 500 mg b12 - 3000 units Vitamin D3 (only needs 9394-8113 units standalone since some is in MVI) - continue folic acid - Wegovy paused - Calorie counts - Nutrition consulted prior to ICU step-up, will re-engage on arrival to floor Assessment & Plan (12/31/2023 1:35 PM EST): #RYGBP - 2011 #Concern for malnutrition Previously noted with low vitamin levels - Vit A, B6, E Reports ~ 90lbs weight loss after starting Wegovy. Continues to report anorexia with poor oral intake over several weeks per patient and - reporting some memory impairments and gait instability per . Will repeat routine nutritional labs given history of RYGBP and reported concerns from pt/family regarding cognition and gait instability. VitB12, iron wnl 12/21/2023. - F/u Aislinn (low, 23.1), Vit D (normal, 26), Vit E (normal, 6.7), Niacin (in process), Vit B6 (in process), folate (normal, 8.4), Vit C (0.5), copper (normal, 81), zinc (normal, 73), selenium (normal, 126) - s/p IV thiamine 500 IV TID x 3d, continuing 100 mg Po daily - Micronutrients per nutrition recs (in note 12/17) - Increase MVI-M to BID - 1200 mg calcium - 500 mg b12 - 3000 units Vitamin D3 (only needs 6849-4326 units standalone since some is in MVI) - continue folic acid - Wegovy paused - Calorie counts - Nutrition consulted prior to ICU step-up, will re-engage on arrival to floor Assessment & Plan (12/28/2023 4:23 PM EST): #RYGBP - 2011 #Concern for malnutrition Previously noted with low vitamin levels - Vit A, B6, E Reports ~ 90lbs weight loss after starting Wegovy. Continues to report anorexia with poor oral intake over several weeks per patient and - reporting some memory impairments and gait instability per . Will repeat routine nutritional labs given history of RYGBP and reported concerns from pt/family regarding cognition and gait instability. VitB12, iron wnl 12/21/2023. - F/u Aislinn, Vit D, Vit E, Niacin, Vit B6, folate, Vit C, copper, zinc, selenium - Start thiamine 500 IV TID x 2d, then PO afterwards. - Start MVI, folate - Wegovy paused - Calorie counts - Nutrition consult Assessment & Plan (12/27/2023 12:44 PM EST): # RYGBP - 2012: # Concern for malnutrition: Previously noted with low vitamin levels - Vit A, B6, E Reports ~ 90lbs weight loss after starting Wegovy. Continues to report anorexia with poor oral intake over several weeks per patient and - reporting some memory impairments and gait instability per . Will repeat routine nutritional labs given history of RYGBP and reported concerns from pt/family regarding cognition and gait instability. VitB12, iron wnl 12/21/2023. - Aislinn, Vit D, Vit E, Niacin, Vit B6, folate, Vit C, copper, zinc, selenium. - Start Thiamine 500 IV TID x 2d, then PO afterwards. - Start MVI, folate. - Wegovy paused. - Calorie counts. - Nutrition consult. Depression 03/13/2016 Overview (09/04/2024): Sees Dr. Quevedo every 2-3 months. Doing well (see PHQ9 below) on citalopram, wellbutrin. Trial of escitalopram led to side effects, (dizziness, poor concentration). Also seeing Dr. Samantha Rivas, psychologist. Uses klonopin prn, now approx 2x/ month during the daytime for stressful events. 09/04/2024 Much improved after ECT 02/2024 ativan- rarely Prozac 80 mg Doing well overall with stressors at work. SEeing psychologist Q0 week. Assessment & Plan (09/04/2024 10:41 AM EDT): Supportive listening and counseling provided Assessment & Plan (08/31/2023 10:50 AM EDT): Supportive listening and counseling provided Assessment & Plan (07/05/2019 10:06 AM EDT): Mild anxiety due to covid, but otherwise doing well. Assessment & Plan (06/28/2018 2:36 PM EDT): Doing ok. Assessment & Plan (04/16/2017 9:29 AM EST): Doing ok. Participant in health and wellness plan 03/13/19 17 Overview (03/13/2016): Health and life balance plan. Service date: 04/03/2015. Author: Rozina Black MD. Comment: Describe what good health looks or feels like to you: Can you identify possible goals you have for your health this year? : 45# weight loss What can you do to reach that goal? : exercise, diet Satisfaction and Stress How would you rate your stress overall?: better at work now What are the sources of your stress?: How well do you feel you manage stress?: How would you describe your marriage or your relationships? How do you feel the balance in your life is going in terms of your personal, family, and work life? 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 Health care maintenance 03/13/2016 Overview (09/04/2024): Exercise- Currently not, planning to start this weekend. Diet- Going to follow a diabetic diet... Colon Cancer: Will start at 47, MGF of colon cancer at 65. No other Fhx. She would prefer cologard over colonoscopy. Neg 2022 Mammo- nl 2023 HIV screen: Vaccine- Flu shot today. Td/Tdap: 2021. COVID x 2 Moderna +1 Assessment & Plan (09/04/2024 10:43 AM EDT): Health Maintenance Due Topic COVID-19 VACCINE ( season) DIABETIC EYE EXAM Exam next week Assessment & Plan (08/31/2023 10:51 AM EDT): Health Maintenance Due Topic COVID-19 VACCINE (2022- season) TSH LEVEL DEPRESSION SCREENING Assessment & Plan (08/26/2022 9:49 AM EDT): Health Maintenance Due Topic COVID-19 VACCINE (4 - Moderna series) COLORECTAL CANCER SCREENING BLOOD PRESSURE Assessment & Plan (03/10/2022 11:03 AM EST): Will schedule mammo Health Maintenance Due Topic COVID-19 VACCINE (4 - Booster for Moderna series) Assessment & Plan (07/10/2021 12:14 PM EDT): Health Maintenance Due Topic PNEUMOCOCCAL VACCINES (0-64 years) (2 - PCV) DEPRESSION SCREENING URINE MICROALBUMIN/CREATININE RATIO Adult Td,Tdap Booster Assessment & Plan (05/09/2020 10:20 AM EDT): Images from the original note were not included. Return call to patient and I LMTCB on phone number she provided below. Angelica [facility] [place], [place] Addie Pods 2/3 Rn Hi, Patient of Dr. Dorantes. Both ears seem to be blocked. Possible wax. Sounds muffled. Wondering if someone can look at it today. Can someone please give a call? ThanksAngelica Assessment & Plan (07/05/2019 10:07 AM EDT): Will be sure HM utd once covid quarantine lifts. Assessment & Plan (06/28/2018 2:40 PM EDT): Up to date Assessment & Plan (04/16/2017 9:34 AM EST): Will schedule mammo Assessment & Plan (02/19/2017 10:12 AM EST): Up to date after labs Vaginitis 03/13/2016 Overview (03/13/2016): History of Vaginitis. Service date: 04/03/2015. Author: Rozina Black MD. Comment: Yeast vaginitis in past. Intolerant to fluconazole PO in past-uses monistat when needed. History of obesity 03/13/2016 Overview (04/21/2024): Onest: adult onset Contributing factors: stress, inadequate sleep duration, poor sleep quality, eating high-calorie foods and large portion sizes Obesity associated co-morbidities: depression Maximum lifetime weight: 207 lbs Initial weight at initial obesity medicine visit: 188 lbs 02/2019 Treatment History: Surgery: s/p laparoscopic RYGB 01/2010 Pre-op: 207 lbs Post-op: dewayne 123 lbs (84 lbs WL = 40.5% TBWL); later complicated with weight regain (~80% regain of lost weight) leading to start of AOM Pharmacologic: baseline was 190 lbs, BMI 37.1 Prior: Saxenda: Started 04/2019 at 190 pounds; d/c due to transition to Wegovy Wegovy: 08/2020-12/2023; 77 lbs WL (40.5% WL) with maintenance 06/2021-12/2023 Current: Wegovy: resumed 02/2023 at 124 lbs (baseline was 190 lbs, BMI 37.1) Assessment & Plan (09/04/2024 10:44 AM EDT): Assessment: Kamran Rowe is a 49 y.o. female with adult onset history of obesity with serious comorbidity s/p RYGB with initial adequate weight loss response (40% TBWL) later complicated with weight regian (80% regain of lost weight) leading to start of AOM with subsequent improved control of the disease (Body mass index is 24.81 kg/m .) CAD, type 1 diabetes, hypothyroidism, iron deficiency anemia, anxiety, and depression who presents for a follow up visit for the continued evaluation and management of obesity. The control obesity is stable since the prior visit. Previously, she had experienced a 77 pound (40.5% ) weight loss response to a weight of 113 pounds 2% with stability for 2 and half years with a combination of behavioral/lifestyle therapy and pharmacotherapy with Wegovy. Subsequently, she had experienced weight regain with discontinuing Wegovy and starting mirtazapine, and now the control obesity has been stable over the past 5-6 months while restarting Wegovy and stopping mirtazapine. Additionally, blood glucose control had declined while off Wegovy, but now seems to be improving. Will continue Wegovy to 1.0 mg subcu weekly to maintain the improved control of obesity, the improved blood glucose regulation, and continue cardiovascular disease risk reduction in the setting of prior STEMI. Will continue to optimize behavioral/lifestyle therapy. She will follow-up with the weight center nutrition team. Will continue close coordination with endocrinology and psychiatry teams. Will continue routine post bariatric nutritional mentation and iron replacement. Plan: Dietary plan: Encouraged her consistent meal routine to avoid meal skipping and unplanned snacking/grazing Encouraged to limit sugar sweetened beverages and ultra processed foods. Follow-up [facility] [place] nutrition team Physical Activity plan: Gradually increase activity to achieve > 150/200 minutes of moderate intensity aerobic exercise per week spread out over 3-5 sessions Gradually add 2-3 sessions per week of resistance training of major muscle groups Behavioral/Lifestyle recommendations: Track weight weekly Track intake and activity daily Discussed referral to [facility] nutrition team due to fear of weight regain and relative increase in hunger compared to prior initial weight loss phase -patient deferred and will review with primary psychology team Medical Management of Obesity: Continue Wegovy to 1.0 mg SQ weekly Surgical Management of Obesity: S/p RYGB 01/2010 Nutritional supplements following metabolic/bariatric surgery Multivitamin: once daily Iron: 45- 60 mg per day; Vitron C daily for 3 mo Vitamin D: 3000 units per day Vitamin B12: 350 to 500 mcg/day Calcium: 1200 - 1500 mg per day divided and spaced by a minimum of 4 hours, calcium citrate is preferred Labs: Check PTH, Vit D, BMP Next annual post-op labs due 12/2024 Other: Continue to follow with endocrinology Health Maintenance: f/u PCP prn. F/u with the [facility] Assessment & Plan (07/12/2024 8:57 AM EDT): Assessment: Kamran Rowe is a 49 y.o. female with adult onset history of obesity with serious comorbidity s/p RYGB with initial adequate weight loss response (40% TBWL) later complicated with weight regian (80% regain of lost weight) leading to start of AOM with subsequent improved control of the disease (Body mass index is 23.95 kg/m .) CAD, type 1 diabetes, hypothyroidism, iron deficiency anemia, anxiety, and depression who presents for a follow up visit for the continued evaluation and management of obesity. The control obesity is stable since the prior visit. Previously, she had experienced a 77 pound (40.5% ) weight loss response to a weight of 113 pounds 2% with stability for 2 and half years with a combination of behavioral/lifestyle therapy and pharmacotherapy with Wegovy. Subsequently, she had experienced weight regain with discontinuing Wegovy and starting mirtazapine, and now the control obesity has been stable over the past 5-6 months while restarting Wegovy and stopping mirtazapine. Additionally, blood glucose control had declined while off Wegovy, but now seems to be improving. Will continue Wegovy to 1.0 mg subcu weekly to maintain the improved control of obesity, the improved blood glucose regulation, and continue cardiovascular disease risk reduction in the setting of prior STEMI. Will continue to optimize behavioral/lifestyle therapy. She will follow-up with the weight center nutrition team. Will continue close coordination with endocrinology and psychiatry teams. Will continue routine post bariatric nutritional mentation and iron replacement. Plan: Dietary plan: Encouraged her consistent meal routine to avoid meal skipping and unplanned snacking/grazing Encouraged to limit sugar sweetened beverages and ultra processed foods. Follow-up weight center nutrition team Physical Activity plan: Gradually increase activity to achieve > 150/200 minutes of moderate intensity aerobic exercise per week spread out over 3-5 sessions Gradually add 2-3 sessions per week of resistance training of major muscle groups Behavioral/Lifestyle recommendations: Track weight weekly Track intake and activity daily Discussed referral to weight center nutrition team due to fear of weight regain and relative increase in hunger compared to prior initial weight loss phase -patient deferred and will review with primary psychology team Medical Management of Obesity: Continue Wegovy to 1.0 mg SQ weekly Surgical Management of Obesity: S/p RYGB 01/2010 Nutritional supplements following metabolic/bariatric surgery Multivitamin: once daily Iron: 45- 60 mg per day; Vitron C daily for 3 mo Vitamin D: 3000 units per day Vitamin B12: 350 to 500 mcg/day Calcium: 1200 - 1500 mg per day divided and spaced by a minimum of 4 hours, calcium citrate is preferred Labs: Check PTH, Vit D, BMP Next annual post-op labs due 12/2024 Other: Continue to follow with endocrinology Health Maintenance: f/u PCP prn. F/u with the [facility] Assessment & Plan (05/25/2024 2:25 PM EDT): Assessment: Kamran Rowe is a 49 y.o. female with adult onset history of obesity with serious comorbidity s/p RYGB with initial adequate weight loss response (40% TBWL) later complicated with weight regian (80% regain of lost weight) leading to start of AOM with subsequent improved control of the disease (Body mass index is 24.72 kg/m .) CAD, type 1 diabetes, hypothyroidism, iron deficiency anemia, anxiety, and depression who presents for a follow up visit for the continued evaluation and management of obesity. The control obesity is stable since the prior visit. Previously, she had experienced a 77 pound (40.5% ) weight loss response to a weight of 113 pounds 2% with stability for 2 and half years with a combination of behavioral/lifestyle therapy and pharmacotherapy with Wegovy. Subsequently, she had experienced weight regain with discontinuing Wegovy and starting mirtazapine, and now the control obesity has been stable over the past 3-4 months while restarting Wegovy and stopping mirtazapine. Additionally, blood glucose control had declined while off Wegovy, but now seems to be improving.. Will continue Wegovy to 1.0 mg subcu weekly to maintain the improved control of obesity and optimize blood glucose regulation. Will continue to optimize behavioral/lifestyle therapy. She will follow-up with the weight center nutrition team. Will continue close coordination with endocrinology and psychiatry teams. Will continue routine post bariatric nutritional mentation and iron replacement. Plan: Dietary plan: Encouraged her consistent meal routine to avoid meal skipping and unplanned snacking/grazing Encouraged to limit sugar sweetened beverages and ultra processed foods. Follow-up weight center nutrition team Physical Activity plan: Gradually increase activity to achieve > 150/200 minutes of moderate intensity aerobic exercise per week spread out over 3-5 sessions Gradually add 2-3 sessions per week of resistance training of major muscle groups Behavioral/Lifestyle recommendations: Track weight weekly Track intake and activity daily Discussed referral to weight center nutrition team due to fear of weight regain and relative increase in hunger compared to prior initial weight loss phase -patient deferred and will review with primary psychology team Medical Management of Obesity: Continue Wegovy to 1.0 mg SQ weekly Surgical Management of Obesity: S/p RYGB 01/2010 Nutritional supplements following metabolic/bariatric surgery Multivitamin: once daily Iron: 45- 60 mg per day; Vitron C daily for 3 mo Vitamin D: 3000 units per day Vitamin B12: 350 to 500 mcg/day Calcium: 1200 - 1500 mg per day divided and spaced by a minimum of 4 hours, calcium citrate is preferred Labs: Check PTH, Vit D, BMP Next annual post-op labs due 12/2024 Other: Continue to follow with endocrinology Health Maintenance: f/u PCP prn. F/u with the [facility] Assessment & Plan (04/21/2024 12:47 PM EST): Assessment: Kamran Rowe is a 49 y.o. female with adult onset history of obesity with serious comorbidity s/p RYGB with initial adequate weight loss response (40% TBWL) later complicated with weight regian (80% regain of lost weight) leading to start of AOM with subsequent improved control of the disease (There is no height or weight on file to calculate BMI.) CAD, type 1 diabetes, hypothyroidism, iron deficiency anemia, anxiety, and depression who presents for a follow up visit for the continued evaluation and management of obesity. The control obesity is stable since the prior visit. Previously, she had experienced a 77 pound (40.5% ) weight loss response to a weight of 113 pounds 2% with stability for 2 and half years with a combination of behavioral/lifestyle therapy and pharmacotherapy with Wegovy. Subsequently, she had experienced weight regain with discontinuing Wegovy and starting mirtazapine, and now the control obesity has been stable over the past 3 to 4 weeks while restarting Wegovy and stopping mirtazapine. However, blood glucose control is declined. Will attempt to increase Wegovy to 1.0 mg subcu weekly to maintain the improved control of obesity and optimize blood glucose regulation. Will continue close coordination with endocrinology and psychiatry teams. Will continue to monitor adequacy of nutrition therapy. Will continue routine post bariatric nutritional mentation and iron replacement. Continue comprehensive behavioral/lifestyle therapy. Plan: Dietary plan: Encouraged her consistent meal routine to avoid meal skipping and unplanned snacking/grazing Encouraged to limit sugar sweetened beverages and ultra processed foods. Follow-up weight center nutrition team Physical Activity plan: Gradually increase activity to achieve > 150/200 minutes of moderate intensity aerobic exercise per week spread out over 3-5 sessions Gradually add 2-3 sessions per week of resistance training of major muscle groups Behavioral/Lifestyle recommendations: Track weight weekly Track intake and activity daily Discussed referral to weight center nutrition team due to fear of weight regain and relative increase in hunger compared to prior initial weight loss phase -patient deferred and will review with primary psychology team Medical Management of Obesity: Increase Wegovy to 1.0 mg SQ weekly to maintain improvement in obesity and optimize blood glucose Surgical Management of Obesity: S/p RYGB 01/2010 Nutritional supplements following metabolic/bariatric surgery Multivitamin: once daily Iron: 45- 60 mg per day; Vitron C daily for 3 mo Vitamin D: 3000 units per day Vitamin B12: 350 to 500 mcg/day Calcium: 1200 - 1500 mg per day divided and spaced by a minimum of 4 hours, calcium citrate is preferred Labs: Check PTH and CBC Next annual post-op labs due 12/2024 Other: Continue to follow with endocrinology Health Maintenance: f/u PCP prn. F/u with the [facility] Assessment & Plan (03/16/2024 2:42 PM EST): Assessment: Kamran Rowe is a 48 y.o. female with adult onset history of obesity with serious comorbidity s/p RYGB with initial adequate weight loss response (40% TBWL) later complicated with weight regian (80% regain of lost weight) leading to start of AOM with subsequent improved control of the disease (Body mass index is 24.22 kg/m .) CAD, type 1 diabetes, hypothyroidism, iron deficiency anemia, anxiety, and depression who presents for a follow up visit for the continued evaluation and management of obesity. The control obesity is stable since the prior visit. Previously, she had experienced a 77 pound (40.5% ) weight loss response to a weight of 113 pounds 2% with stability for 2 and half years with a combination of behavioral/lifestyle therapy and pharmacotherapy with Wegovy. Subsequently, she had experienced weight regain with discontinuing Wegovy and starting mirtazapine, and now the control obesity has been stable over the past 3 to 4 weeks while restarting Wegovy and de-escalating mirtazapine. Will continue to de-escalate mirtazapine in coordination with primary psychiatry team. Will continue to titrate Wegovy as described below. We reviewed the goal of using the lowest effective dose of Wegovy to maintain the improved control of obesity to target the ongoing prevention and management of obesity associated complications. We reviewed that a 34% weight loss at the current weight is robust and clinically significant for improving obesity associated complications. We also discussed that the current resulting BMI is 24.2, and there are no significant medical indications for a further weight loss response. Will continue with plan to increase Wegovy to 0.5 mg subcu weekly and monitor response. May later consider further dose escalation if needed to maintain improvement in obesity. Will continue close coordination with endocrinology and psychiatry teams. Will continue to monitor adequacy of nutrition therapy. Will continue routine post bariatric nutritional mentation and iron replacement. Continue comprehensive behavioral/lifestyle therapy. Plan: Dietary plan: Encouraged her consistent meal routine to avoid meal skipping and unplanned snacking/grazing Encouraged to limit sugar sweetened beverages and ultra processed foods. Referred to [facility] Physical Activity plan: Gradually increase activity to achieve > 150/200 minutes of moderate intensity aerobic exercise per week spread out over 3-5 sessions Gradually add 2-3 sessions per week of resistance training of major muscle groups Behavioral/Lifestyle recommendations: Track weight weekly Track intake and activity daily Discussed referral to weight center nutrition team due to fear of weight regain and relative increase in hunger compared to prior initial weight loss phase -patient deferred and will review with primary psychology team Medical Management of Obesity: Continue Wegovy titration Weeks 1-4: Wegovy 0.25 mg subcu weekly Weeks 5+: Wegovy 0.5 mg subcu weekly May later consider further dose escalation if needed to maintain the improved control of obesity Surgical Management of Obesity: S/p RYGB 01/2010 Nutritional supplements following metabolic/bariatric surgery Multivitamin: once daily Iron: 45- 60 mg per day; Vitron C daily for 3 mo Vitamin D: 3000 units per day Vitamin B12: 350 to 500 mcg/day Calcium: 1200 - 1500 mg per day divided and spaced by a minimum of 4 hours, calcium citrate is preferred Labs: Repeat CBC, ferritin, iron studies in 3 months from prior Check CMP, vitamin D, and PTH in 3 months from prior Next annual post-op labs due 12/2024 Other: Continue to follow with endocrinology Health Maintenance: f/u PCP prn. F/u with the [facility] 2 months with [employer] and 4 months with me Assessment & Plan (02/22/2024 2:15 PM EST): Wegovy was stopped during recent hospitalization due to concern for malnutrition in setting of weight loss- 50% of body weight from 2019 with vitamin deficiencies. Mirtazapine was initiated and up-titrated to 30 mg for mood augmentation to help with sleep/appetite but she reports that, since discharge, she has been eating constantly. Wakes up in the middle of the night to eat. Reports 20 pound weight gain since discharge. She would like to re-start GLP 1 for appetite suppression. Vitamin A and C deficiencies were treated while hospitalized. Given that she is scheduled to see her provider in the weight center later today, I will defer the decision re: weight management medication to Dr. Groves. - continue care with weight center for weight management Assessment & Plan (02/21/2024 1:16 PM EST): Assessment: Kamran Rowe is a 48 y.o. female with adult onset history of obesity with serious comorbidity s/p RYGB with initial adequate weight loss response (40% TBWL) later complicated with weight regian (80% regain of lost weight) leading to start of AOM with subsequent improved control of the disease (There is no height or weight on file to calculate BMI.) CAD, type 1 diabetes, hypothyroidism, iron deficiency anemia, anxiety, and depression who presents for a follow up visit for the continued evaluation and management of obesity. The control of obesity is relatively stable to declined since the previous visit. She had previously experienced a 77 pound weight loss (40.5% weight loss) response to the addition of GLP-1 receptor agonist therapy to behavioral/lifestyle therapy in the setting of prior Joao-en-Y gastric bypass. She experienced maintenance of improved control of obesity from 06/2021 to 12/2023, and she has been experiencing weight regain in the setting of discontinuing Wegovy and starting mirtazapine. Additionally, recent discontinuation of bupropion may be contributing to weight regain. We reviewed that Wegovy was discontinued in the setting of a recent psychiatric hospitalization for suicidal ideation and discovery of nutritional deficiencies. We reviewed that prior use of GLP-1 RA (Saxenda then Wegoy) from 04/2019 - 12/2023 was well tolerated without changes in anxiety, depression, or suicide ideation. We discussed that I suspect that the nutritional deficiencies were related to inadequate nutritional supplementation following Joao-en-Y gastric bypass, and not Wegovy. We discussed routine post bariatric nutritional supplementation, and she will be referred to the weight center nutrition team. We discussed cautiously considering a repeat trial of Wegovy given past response and concern for continued worsening of obesity while off therapy. Will coordinate closely with endocrinology and psychiatry teams. If restarting Wegovy, then will titrate slowly and closely monitor response. Continue to optimize behavioral/lifestyle therapy. Plan: Dietary plan: Encouraged her consistent meal routine to avoid meal skipping and unplanned snacking/grazing Encouraged to limit sugar sweetened beverages and ultra processed foods. Referred to [facility] Physical Activity plan: Gradually increase activity to achieve > 150/200 minutes of moderate intensity aerobic exercise per week spread out over 3-5 sessions Gradually add 2-3 sessions per week of resistance training of major muscle groups Behavioral/Lifestyle recommendations: Track weight weekly Track intake and activity daily Medical Management of Obesity: Will consider restarting Wegovy as described below after coordinating with endocrinology and psychiatry Weeks 1-4: Wegovy 0.25 mg subcu weekly Weeks 5+: Wegovy 0.5 mg subcu weekly Surgical Management of Obesity: S/p RYGB 01/2010 Nutritional supplements following metabolic/bariatric surgery Multivitamin: once daily Iron: 45- 60 mg per day Vitamin D: 3000 units per day Vitamin B12: 350 to 500 mcg/day Calcium: 1200 - 1500 mg per day divided and spaced by a minimum of 4 hours, calcium citrate is preferred Labs: Repeat CBC, ferritin, iron studies in 3 months Check CMP, vitamin D, and PTH in 3 months Next annual post-op labs due 12/2024 Other: Continue to follow with endocrinology Health Maintenance: f/u PCP prn. F/u with the [facility] 2 months with [employer] and 4 months with me Assessment & Plan (08/31/2023 10:52 AM EDT): Doing well, weight remains stable, tolerating wegovy Assessment & Plan (08/26/2022 9:47 AM EDT): Remains on wegovy 2.4 mg, doing great. Weight remains stable ~ 112# Assessment & Plan (06/29/2022 8:55 AM EDT): Assessment: Kamran Rowe is a 46 y.o. female with adult onset history of obesity with serious comorbidity s/p RYGB with initial adequate weight loss response (40% TBWL) later complicated with weight regian (80% regain of lost weight) leading to start of AOM with good control of the disease (Body mass index is 21.43 kg/m .) CAD, type 1 diabetes, hypothyroidism, iron deficiency anemia, anxiety, and depression who presents for a follow up visit for the continued evaluation and management of obesity. The control of obesity is improved and stable on the current regimen. She has experienced a 75 pound weight loss (39.5% total body weight loss) response to the combination of behavioral/lifestyle therapy and pharmacotherapy in the setting of prior Joao-en-Y gastric bypass. She is tolerating Wegovy 2.4 mg subcu weekly, and her weight has been stable over the past 12 months. We reviewed that antiobesity medication therapy is intended for chronic use (weight loss and weight loss maintenance) as an adjunct to behavioral/lifestyle therapy. We will continue Wegovy 2.4 mg SQ weekly in combination with comprehensive behavioral/lifestyle therapy. We reviewed routine post-bariatric nutritional supplementation and the role for annual post-bariatric laboratory evaluations. We discussed transitioning her care back to her PCP for the continued management of obesity status post Joao-en-Y gastric bypass. Plan: 1. Dietary plan: a. Continue to have a consistent meal routine b. Referred to [facility] 2. Physical Activity plan: a. Gradually increase activity to achieve > 150/200 minutes of moderate intensity aerobic exercise per week spread out over 3-5 sessions b. Gradually add 2-3 sessions per week of resistance training of major muscle groups 3. Behavioral/Lifestyle recommendations: a. Track weight weekly b. Track intake and activity daily 4. Medical Management of Obesity: a. Continue Wegovy 2.4 mg SQ weekly b. Continue bupropion (other provider) c. Continue topiramate (other provider) 5. Surgical Management of Obesity: a. S/p RYGB 01/2010 b. Nutritional supplements following metabolic/bariatric surgery i. Multivitamin: once daily ii. Iron: 45- 60 mg per day iii. Vitamin D: 3000 units per day iv. Vitamin B12: 350 to 500 mcg/day v. Calcium: 1200 - 1500 mg per day divided and spaced by a minimum of 4 hours, calcium citrate is preferred 6. Labs: a. Next annual post-operative labs due 06/2023 7. Other: a. Continue to follow with endocrinology b. Coordinate referral back to PCP 8. Health Maintenance: f/u PCP prn. 9. F/u with the [facility] PRN Assessment & Plan (12/26/2021 10:27 AM EST): Assessment: Kamran Rowe is a 46 y.o. female with adult onset history of obesity with serious comorbidity s/p RYGB with initial adequate weight loss response (40% TBWL) later complicated with weight regian (80% regain of lost weight) leading to start of AOM with good control of the disease (Body mass index is 21.43 kg/m .) CAD, type 1 diabetes, hypothyroidism, iron deficiency anemia, anxiety, and depression who presents for a follow up visit for the continued evaluation and management of obesity. The control of obesity is improved and stable on the current regimen. She has experienced a 77 pound weight loss (40% total body weight loss) response to the combination of behavioral/lifestyle therapy and pharmacotherapy in the setting of prior Joao-en-Y gastric bypass. She is tolerating Wegovy 2.4 mg subcu weekly, and her weight has been stable over the past 6 months. We reviewed that antiobesity medication therapy is intended for chronic use (weight loss and weight loss maintenance). We will continue Wegovy 2.4 mg SQ weekly in combination with comprehensive behavioral/lifestyle therapy. Plan: 1. Dietary plan: a. Continue to have a consistent meal routine b. Referred to [facility] camp[facility] 2. Physical Activity plan: a. Gradually increase activity to achieve > 150/200 minutes of moderate intensity aerobic exercise per week spread out over 3-5 sessions b. Gradually add 2-3 sessions per week of resistance training of major muscle groups 3. Behavioral/Lifestyle recommendations: a. Track weight weekly b. Track intake and activity daily 4. Medical Management of Obesity: a. Continue Wegovy 2.4 mg SQ weekly b. Continue bupropion (other provider) c. Continue topiramate (other provider) 5. Surgical Management of Obesity: a. S/p RYGB 01/2010 b. Nutritional supplements following metabolic/bariatric surgery i. Multivitamin: once daily ii. Iron: 45- 60 mg per day iii. Vitamin D: 3000 units per day iv. Vitamin B12: 350 to 500 mcg/day v. Calcium: 1200 - 1500 mg per day divided and spaced by a minimum of 4 hours, calcium citrate is preferred 6. Labs: a. Next annual post-operative labs due 06/2022 7. Other: a. Continue to follow with endocrinology 8. Health Maintenance: f/u PCP prn. 9. F/u with the [facility] in 6 months Assessment & Plan (07/10/2021 12:16 PM EDT): Remains on wegovy with excellent results, now back to her dewayne weight. Assessment & Plan (12/17/2020 12:08 PM EDT): 1. Continue wegovy for maintenance, blood sugar control and CV protection 2. Recheck yearly 3. Yearly labs in April Assessment & Plan (04/08/2020 10:46 AM EST): 1. Doing great with saxenda and low carb lifestyle 2. Blood sugar a bit higher but trying to manage lows and highs 3. Will check labs for vitamins Assessment & Plan (01/01/2020 8:20 AM EST): 1. Doing well with weight loss, sugars back up again due to some dietary changes, working on getting back into further carbohydrate limitation 2. Discuss exercise and blood sugar control, kalee peloton pepe trial with treadmill at home 3. Continue saxenda and recheck in 3 mo Assessment & Plan (09/24/2019 4:24 PM EDT): 1. Doing great, continue saxenda and low carb lifestyle 2. Work to increase exercise as able 3. Recheck in 3 mo Assessment & Plan (07/05/2019 10:09 AM EDT): Now on appetite suppressant and able to eat more healthily Assessment & Plan (06/12/2019 4:36 PM EDT): 1. Started saxenda april 23. Also started preop diet with as he was getting ready for surgery but then it got postponed. 2. Also new insulin pump at same time so blood sugars are better 3. Has a treadmill and working to get on it. Discussed [employer] pepe use as option to motivate 4. Up to 3mg dose of saxenda, slight nausea, no constipation, doing planned portion of plants and protein. Assessment & Plan (03/19/2019 2:52 PM EST): 1. Trial of saxenda, could consider ozempic instead as well, especially once 2.4mg dose comes out 2. Support low carb lifestyle 3. Increase activity as able Pneumonia 03/13/2016 Overview (03/13/2016): Pneumonia. Service date: 09/10/2011. Author: Nohemy Heaton MD. Transient disorder of initiating or maintaining sleep 11/20/2015 History of gastric bypass 05/17/2015 Overview (02/19/2017): S/p gastric bypass by Dr Brito 2009. Dewayne of 130# from 210#. Weight gained due to not being able to adhere to change in lifestyle. Assessment & Plan (02/19/2017 9:51 AM EST): Trying to work on improving diet and exercise. Iron deficiency anemia 05/17/2015 Assessment & Plan (02/21/2024 1:05 PM EST): Chronic. Suspected to be due to inadequate iron supplementation in the setting of prior Joao-en-Y gastric bypass. - Change multivitamin to bariatric specific multivitamin with 45-60 mg of iron daily - Take Vitron-C daily for 90 day - Repeat CBC, ferritin, iron studies in 3 mo - Consider iron infusions if needed Assessment & Plan (03/19/2019 2:44 PM EST): - Discussed options for iron infusion if continues to be an issue. - Discussed bariatric chewable iron for possible better absorption Vitamin D deficiency 05/17/2015 Weight gain 05/17/2015 Condyloma acuminata 02/14/2014 Overview (03/13/2016): Condyloma accuminata. Service date: 04/03/2015. Author: Roznia Black MD. Comment: Extensive condyloma on vulva 04/01, requiring fulguration in OR No further lesions. Followed by Dr. Gonzales now--due for f/u 01/2016. Condyloma acuminatum; extensive vulvar Hypercholesterolemia 08/29/2009 Overview (04/07/2014): Hypercholesterolemia Generalized anxiety disorder with panic attacks 08/29/2009 Overview (04/07/2014): Anxiety Assessment & Plan (11/20/2015 11:24 AM EDT): Significant ambient anxiety. There is anxiety in the AM, manifests as worry, chest tightness, and some difficulty concentrating. Also, one episode of palpitations, this AM. Greater than 50% of session was devoted to discussion and counseling regarding Medical Psychiatric treatment plan, including:options for managing anxiety. Pt took buspirone in the past; it was self-d/cd' some time between 10/30 and 03/02. It is possible that it was associated with some benefit. Pt indicates that she would prefer an as-needed rather than standing-order bid medication for anxiety. Plan: Restart clonazepam 0.5 mg qAM,prn, for severe ambient anxiety. Begin 0.25 mg as test dose. Take upon arrival at work (avoid driving 4 hrs after taking). Behavioral plan for anxiety management: Go for walk. Exercise. Pt does not expect she will commit herself to meditation or diaphragmatic breathing. Restart trazodone for sleep (helpful in the past). Dose can be adjusted to minimize oversedation side effect. Begin 25 mg qHS. Recommend no use of phone overnight. If using phone, use DotSpots pepe (discussed). Cont other meds. Consider re-start buspirone in the future, after reviewing more closely pt's experience w/ it, historically. Medical f/u w/ PCP, [facility], [facility] ([facility]I pending). RTC 6 wks. Assessment & Plan (07/17/2015 1:14 PM EDT): Anxiety level generally low/manageable. Plan: Continue current medications (citalopram 40 mg/day). Seasonal allergic rhinitis 08/29/2009 Overview (04/07/2014): Seasonal allergic rhinitis Hypothyroidism 09/01/2007 Overview (08/26/2022): synthroid 150 mcg SCREENING PANEL: TSH Date Value Ref Range Status 06/18/2022 1.97 0.40 - 5.00 uIU/mL Final Assessment & Plan (09/04/2024 10:45 AM EDT): Lab Results Component Value Date TSH 5.64 (H) 05/16/2024 TSH 7.10 (H) 04/10/2024 TSH Credit 12/21/2023 TSH 2.07 12/21/2023 Assessment & Plan (12/26/2023 10:14 AM EST): Patient was found to have elevated TSH in 2021 and has been on levothyroxine for hypothyroidism. She has been taking 150mcg daily M-S and 300mcg on Sundays. She recently lost significant amount of weight. When she presented to the ED two days ago due to HTN, chest pressure, palpitation, and anxiety. They checked TFT which showed normal TSH but elevated freeT4 and totalT4. 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 It is worth investigating weather the high dose levothyroxine may have contributed her restlessness, anxiety, and insomnia. - After discussion with Dr. Nogueira, decrease levothyroxine dose to 125mcg daily - Check TFT in 4-6 weeks Assessment & Plan (12/25/2023 6:45 PM EST): Patient was found to have elevated TSH in 2021 and has been on levothyroxine for hypothyroidism. She has been taking 150mcg daily M-S and 300mcg on Sundays. She recently lost significant amount of weight. When she presented to the ED two days ago due to HTN, chest pressure, palpitation, and anxiety. They checked TFT which showed normal TSH but elevated freeT4 and totalT4. 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 It is worth investigating weather the high dose levothyroxine may have contributed her restlessness, anxiety, and insomnia. - After discussion with Dr. Nogueira, decrease levothyroxine dose to 125mcg daily - Check TFT in 4-6 weeks Assessment & Plan (11/09/2023 8:49 AM EDT): She remains on a stable levothyroxine replacement dose, will check a TSH soon. Assessment & Plan (08/31/2023 10:53 AM EDT): Will update TSH with next blood draw Assessment & Plan (05/04/2023 8:56 AM EDT): She remains on the levothyroxine replacement dose, and her last TSH was at goal, will check another one today. Assessment & Plan (08/26/2022 9:46 AM EDT): Up too date an in nl range Assessment & Plan (03/10/2022 10:59 AM EST): Doing great, nl TSH Assessment & Plan (12/30/2021 12:19 PM EST): She remains on a stable levothyroxine replacement dose, her last TSH was at goal, no changes to her medication. Assessment & Plan (07/10/2021 12:11 PM EDT): Rechecking TSH in 2 months Assessment & Plan (07/02/2021 2:36 PM EDT): She was off her levothyroxine replacement for a couple of months, TSH was elevated but now she is back on the levothyroxine, will check a TSH in 2 months. Assessment & Plan (12/02/2020 2:16 PM EDT): She is on a stable levothyroxine replacement dose, recent TSH was in normal range. Assessment & Plan (08/20/2020 2:22 PM EDT): She is on a stable levothyroxine replacement dose, last TSH was at goal. Assessment & Plan (04/17/2020 2:23 PM EST): She is on a stable levothyroxine replacement dose, last TSH was at goal. Assessment & Plan (07/05/2019 10:04 AM EDT): tsh up to date Assessment & Plan (01/24/2019 12:41 PM EST): She is on a stable levothyroxine replacement dose, last TSH was at goal, will check another one today. Assessment & Plan (06/28/2018 2:37 PM EDT): Up to date. Assessment & Plan (03/02/2017 3:06 PM EST): Her recent TSH was borderline, we'll increase her levothyroxine by taking an extra pill on Wednesday Assessment & Plan (02/19/2017 10:15 AM EST): Check TSH, remains on stable dose Assessment & Plan (07/22/2016 4:28 PM EDT): On replacement therapy, we'll check TSH Assessment & Plan (03/29/2015 3:28 PM EST): On stable replacement dose, will check TSH today. Recurrent major depressive disorder, in full rem ission 08/28/2002 Overview (07/17/2015): Assessment & Plan (03/02/2017 3:06 PM EST): Mood is good, she is followed by psychiatry. Assessment & Plan (11/20/2015 11:18 AM EDT): MDD in remission. Significant ambient nxiety. disruption of sleep. Sub-optimal BS control. There is anxiety in the AM, manifests as worry, chest tightness, and some difficulty concentrating. Also, one episode of palpitations, this AM. BUP and phentermine both lower seizure threshold. Not an absolute contraindication, in absence of other seizure risk factors. Greater than 50% of session was devoted to discussion and counseling regarding Medical Psychiatric treatment plan, including:options for managing anxiety. Pt took buspirone in the past; it was self-d/cd' some time between 10/30 and 03/02. It is possible that it was associated with some benefit. Pt indicates that she would prefer an as-needed rather than standing-order bid medication for anxiety. Plan: Restart clonazepam 0.5 mg qAM,prn, for severe ambient anxiety. Begin 0.25 mg as test dose. Take upon arrival at work (avoid driving 4 hrs after taking). Behavioral plan for anxiety management: Go for walk. Exercise. Pt does not expect she will commit herself to meditation or diaphragmatic breathing. Restart trazodone for sleep (helpful in the past). Dose can be adjusted to minimize oversedation side effect. Begin 25 mg qHS. Recommend no use of phone overnight. If using phone, use [employer] pepe (discussed). Cont other meds. Consider re-start buspirone in the future, after reviewing more closely pt's experience w/ it, historically. Medical f/u w/ PCP, [facility], [facility] ([facility] pending). RTC 6 wks. Assessment & Plan (07/17/2015 11:12 AM EDT): Euthymic. Frustration w/ weight management. Plan: Continuing citalopram, bupropion ER Adding exercise at gym. [facility], PCP, Endo[facility] f/u Assessment & Plan (03/29/2015 3:29 PM EST): Doing well on current regimen. Gastroesophageal reflux disease 08/28/2002 Overview (04/07/2014): Gastroesophageal reflux disease; *See attached note in LMR Uncoded Health maintenance 06/23/2001 Overview (04/07/2014): Health maintenance; *See attached note in LMR Allergic rhinitis 06/23/2001 Overview (04/07/2014): Allergic rhinitis; *See attached note in LMR Type 1 diabetes mellitus with other specified co mplication 06/23/2001 Overview (09/04/2024): Follow by Dr. Nogueira. Has pump, but A1c still elevated (9.9%). Had CGM, but it was uncomfortable, so she is looking into getting a different model. No hypoglycemia. She dose have awareness (shaky) +mild retinopathy, urine microalbumin recently normal. LDL 88 no statin. No recent yeast vaginitis Biggest issue is diet--eats out a lot and admits to eating more than she should--neither she or her fianc_ cook. Also not exercising--though she will be starting at a gym next weekend (will try treadmill) and hopes to do this 3-4x/wk. Takes train to [employer] [facility], then shuttle to [facility]--encouraged her to walk this. We also discussed what coaching might offer her, but she is going to try weight loss on her own first. She has appt with weight center--hoping to go on appetite suppressant. She is agreeable to meeting here in 6 months and reviewing her progress and considering coaching at that time. diabetes mellitus type 1; onset 1990 On continuous pump which is now working better but sugars are still low on occasion. MEEI- up to date, 201809/04/2024 A1c: HEMOGLOBIN A1C Date Value Ref Range Status 08/21/2024 7.0 (H) 4.3 - 5.6 % Final Comment: HbA1c levels 5.7-6.4% represent pre-diabetes, indicating impaired glucose control and an increased risk of developing diabetes compared with lower HbA1c levels. The diagnostic HbA1c level for diabetes is 6.5% or greater. Diabetes meds: Cr: CREATININE Date Value Ref Range Status 08/21/2024 0.98 0.50 - 1.00 mg/dL Final URINE CREATININE Date Value Ref Range Status 12/28/2023 58 mg/dL Final Microalbumin: Lab Results Component Value Date MALBCRE 4.1 12/21/2023 GRMALB 0.6 12/21/2023 Lipids: Lab Results Component Value Date CHOL 128 08/21/2024 HDL 83 08/21/2024 LDL 35 (L) 08/21/2024 TRIG 49 08/21/2024 CHOLHDL 1.5 08/21/2024 BP: BP Readings from Last 3 Encounters: 09/04/24 98/65 07/24/24 120/80 05/25/24 129/83 Foot care: Eye exam: BMI: Body mass index is 24.81 kg/m . Assessment & Plan (10/13/2024 3:47 PM EDT): The Inpatient Diabetes Management Service has been consulted to assist with achieving glycemic control with hx of T1DM. Of note, she had an suicide attempt with 300 units of insulin during her previous [facility] admission in Jan 2024. 49 y.o. female [...] for paranoia as she is uncertain if things are coincidences or what is reality. Her and her endorse that this is the similar trajectory that led to her previous psychiatric admission that led to a suicide attempt psych, HI, EtOH, drugs, auditory or visual loose shins. Denied physical symptoms. For her T1DM, she is followed at the [facility] with last visit with Dr. Timbo Calle on 10/07/24 as telemedicine visit. Home Rx: Wegovy 1 mg weekly - well tolerated Tandem insulin pump with Control IQ Basal 0.8 units/hr ISF: 60 CR: 10 BG target: 120 Pt's blood sugars low to 68 mg/dl this morning despite Lantus being lowered to 12 units last night. Elevated to 369 mg/dl after breakfast today possibly [...] Glucose 301- 350- 4 units, Glucose 351- 400- 5 units, Glucose > 400- 6 units and page RC FSBG QID- AC, HS, and if any signs or symptoms of hypoglycemia Assessment & Plan (09/04/2024 10:38 AM EDT): 49-year-old woman with history of type 1 diabetes since age 15, I have followed her in the diabetes clinic since 2000, overall she is doing quite well with her t:slim with control IQ insulin pump, she tried the iLet pump but she had too much hypoglycemia, we discussed again trying to remember to bolus before each meal, no changes to her settings as yet. Very happy wioth her A1C and labs Assessment & Plan (05/09/2024 2:02 PM EDT): 49-year-old woman with history of type 1 diabetes since age 15, I have followed her in the diabetes clinic since 2000, overall she is doing quite well with her t:slim with control IQ insulin pump, she tried the iLet pump but she had too much hypoglycemia, we discussed again trying to remember to bolus before each meal, no changes to her settings as yet. Will check another A1c today. Assessment & Plan (02/22/2024 2:14 PM EST): Followed by endocrine, insulin pump in place. Patient and her have received teaching on the device. Endocrine reccs for discharge were as follows: Continue tandem insulin pump at current settings with Dexcom G7 CGM -if any hypoglycemia: Rule of 15's for hypoglycemia correction: If your blood glucose (BG) level is under 70mg/dL: 1.) Consume 15 grams of rapid acting carbohydrate (such as 1/2 cup juice, or 3-4 glucose tabs) 2.) Wait about 15 minutes, then recheck your BG level 3.) If your BG is still low (under 70), consume another 15 grams of rapid acting carbohydrate and recheck 15 minutes later. 4.) Once BG over 70, consume 15 grams of complex carbs (such as peanut butter crackers) or, if meal coming up, eat meal -Follow up in [facility] as scheduled 02/23/24 at 8:30 am with Basilia Glasgow NP. Call prior to appointment if any diabetes related questions or concerns Assessment & Plan (02/07/2024 3:40 PM EST): Ms. Rowe is a 48 y.o. female with PMH notable for T1DM (A1c 7.6% 12/21/2023) on Tandem T:slim with Control IQ insulin pump complicated by mild NPDR and CAD, hypothyroidism, depression, anxiety, presenting after intentional benzodiazepine and and hydroxyzine overdose, followed by in-hospital suicide attempt with 300 units of insulin. IPDM consulted for management of T1DM. Home regimen: Tandem T:slim insulin pump with Novolog insulin (currently off pump) Basal rate: 1.2 U/hr ICR 1:15 ISF 100, target 120 mg/dl Average daily dose over past 2 weeks: 30 units (basal 28.5 units or 78%, bolus 6.5 units) Wegovy 2.4 mg weekly She was appropriately transitioned off her pump onto injections in the ED due to poor mental status. Recommend continuing injections while she remains on section 12 hold and suicide precautions. Suicide attempt 12/27 afternoon by intentionally injecting aspart U-100 300 units x 1 and attempting to inject another 300 units afterwards. Valiant collaborative effort by Medicine team/RN team/ICU team to keep patient alive and safe overnight-transferred to ICU. Plan for d/c later this afternoon, Adrian picking her up at 5pm. Insulin pump resumed- Ms. Rowe placed CGM and pump with minimal prompting. 100 units placed in pump reservoir. As she has some concern about possible hypoglycemia resuming pump she placed herself in exercise mode for 2 hours starting around 3:15pm. Hospital pump policy reviewed and signed. Manual pump settings adjusted as follows today: Basal rate: 0.8 U/hr ICR 1:15 ISF 100 Reviewed multiple functions in pump as well as overall diabetes management including: -Changing/pairing new cgm -Changing pump site -bolusing entering carbs -removing and refilling cartridge -priming tubing -entering exercise mode -recommended using exercise mode while NPO for outpt ECT. Can leave insulin pump on for outpatient ECT as it is a short procedure -wear to find carb counts on nutrition label Recommendations for inpatient: Pump Recommendations: - Continue Tandem (T-slim) insulin pump at current settings (see above; order placed in [facility] so she may use her own pump, site changing supplies, and insulin) - I reviewed the insulin pump self-management protocol with patient including expectations that she log her BG, carbs, and boluses on the provided sheet. Copies of the protocol placed in chart and reviewed with bedside nurse. - Please continue checking POCT BGs QAC/HS using our [facility] glucometer; all bolusing decisions by patient should be based on our glucometer readings, although she is free to check her BGs PRN using his own glucometer. - Please check pump site qshift to ensure catheters are intact and not leaking; patient should change her pump site every three days using her own supplies Contingency Plans in case of pump failure: If the insulin pump has to be disconnected (for example, if the patient is not able to safely manage her insulin pump), please give 16 units x 1 before the pump is taken off. Then start Lispro 0-6 dose sliding scale AC + HS. Recommendations for discharge: -Continue tandem insulin pump at current settings with Dexcom G7 CGM -if any hypoglycemia: Rule of 15's for hypoglycemia correction: If your blood glucose (BG) level is under 70mg/dL: 1.) Consume 15 grams of rapid acting carbohydrate (such as 1/2 cup juice, or 3-4 glucose tabs) 2.) Wait about 15 minutes, then recheck your BG level 3.) If your BG is still low (under 70), consume another 15 grams of rapid acting carbohydrate and recheck 15 minutes later. 4.) Once BG over 70, consume 15 grams of complex carbs (such as peanut butter crackers) or, if meal coming up, eat meal -Follow up in [facility] as scheduled 02/23/24 at 8:30 am with Basilia Glasgow NP. Call prior to appointment if any diabetes related questions or concerns Assessment & Plan (01/16/2024 9:56 AM EST): Ms. Rowe is a 48 y.o. female with PMH notable for T1DM (A1c 7.6% 12/21/2023) on Tandem T:slim with Control IQ insulin pump complicated by mild NPDR and CAD, hypothyroidism, depression, anxiety, presenting after intentional benzodiazepine and and hydroxyzine overdose, followed by in-hospital suicide attempt with 300 units of insulin. IPDM consulted for management of T1DM. Home regimen: Tandem T:slim insulin pump with Novolog insulin (currently off pump) Basal rate: 1.2 U/hr ICR 1:15 ISF 100, target 120 mg/dl Average daily dose over past 2 weeks: 30 units (basal 28.5 units or 78%, bolus 6.5 units) Wegovy 2.4 mg weekly She was appropriately transitioned off her pump onto injections in the ED due to poor mental status. Recommend continuing injections while she remains on section 12 hold and suicide precautions. Suicide attempt 12/27 afternoon by intentionally injecting aspart U-100 300 units x 1 and attempting to inject another 300 units afterwards. Valiant collaborative effort by Medicine team/RN team/ICU team to keep patient alive and safe overnight-transferred to ICU. Blood glucose trend improving, Recommend cautious insulin titration given poor (and unpredictable) PO intake. Recommendations: Lantus 24 units qam, if NPO give 14 units. Please do not hold basal insulin in pt with type 1 diabetes Lispro 6 units with each Ensure Plus, now written tid. Given after finishing supplement. Hold if NPO Lispro 0-7 unit ss TID AC BG> 200 mg/dl Lispro 4 units nightly prn snack / Ensure FSBG AC, HS, and if any signs or symptoms of hypoglycemia I changed these orders. Will follow. Assessment & Plan (01/15/2024 10:42 AM EST): Ms. Rowe is a 48 y.o. female with PMH notable for T1DM (A1c 7.6% 12/21/2023) on Tandem T:slim with Control IQ insulin pump complicated by mild NPDR and CAD, hypothyroidism, depression, anxiety, presenting after intentional benzodiazepine and and hydroxyzine overdose, followed by in-hospital suicide attempt with 300 units of insulin. IPDM consulted for management of T1DM. Home regimen: Tandem T:slim insulin pump with Novolog insulin (currently off pump) Basal rate: 1.2 U/hr ICR 1:15 ISF 100, target 120 mg/dl Average daily dose over past 2 weeks: 30 units (basal 28.5 units or 78%, bolus 6.5 units) Wegovy 2.4 mg weekly She was appropriately transitioned off her pump onto injections in the ED due to poor mental status. Recommend continuing injections while she remains on section 12 hold and suicide precautions. Suicide attempt 12/27 afternoon by intentionally injecting aspart U-100 300 units x 1 and attempting to inject another 300 units afterwards. Valiant collaborative effort by Medicine team/RN team/ICU team to keep patient alive and safe overnight-transferred to ICU. Blood glucose trend improving, Recommend cautious insulin titration given poor (and unpredictable) PO intake. Recommendations: Lantus 20 units qam, if NPO give 14 units. Please do not hold basal insulin in pt with type 1 diabetes Lispro 6 units with each Ensure Plus. Given after finishing supplement. Hold if NPO Lispro 0-7 unit ss TID AC and HS starting with glucose > 200 mg/dl D/c mod dose lispro 0-12 TID AC FSBG AC, HS, and if any signs or symptoms of hypoglycemia I changed these orders. Will follow. Assessment & Plan (01/14/2024 10:46 AM EST): Ms. Rowe is a 48 y.o. female with PMH notable for T1DM (A1c 7.6% 12/21/2023) on Tandem T:slim with Control IQ insulin pump complicated by mild NPDR and CAD, hypothyroidism, depression, anxiety, presenting after intentional benzodiazepine and and hydroxyzine overdose. IPDM consulted for management of T1DM. Home regimen: Tandem T:slim insulin pump with Novolog insulin (currently off pump) Basal rate: 1.2 U/hr ICR 1:15 ISF 100, target 120 mg/dl Average daily dose over past 2 weeks: 30 units (basal 28.5 units or 78%, bolus 6.5 units) Wegovy 2.4 mg weekly She was appropriately transitioned off her pump onto injections in the ED due to poor mental status. Recommend continuing injections while she remains on section 12 hold and suicide precautions. Suicide attempt 12/27 afternoon by intentionally injecting aspart U-100 300 units x 1 and attempting to inject another 300 units afterwards. Valiant collaborative effort by Medicine team/RN team/ICU team to keep patient alive and safe overnight-transferred to ICU. Blood glucose trend improving, though slightly above goal. Recommend cautious insulin titration given poor (and unpredictable) PO intake. Can increase Lantus tomorrow if fasting blood glucose remains above goal. Recommendations: Lantus 18 units qam, if NPO give 14 units. Please do not hold basal insulin in pt with type 1 diabetes Lispro 5 units with each Ensure Plus. Given after finishing supplement. Hold if NPO Mod SHANI 0-12 units qac Lispro 0-7 unit ss TID AC starting with glucose > 200 mg/dl FSBG AC, HS, and if any signs or symptoms of hypoglycemia Assessment & Plan (01/13/2024 11:01 AM EST): Ms. Rowe is a 48 y.o. female with PMH notable for T1DM (A1c 7.6% 12/21/2023) on Tandem T:slim with Control IQ insulin pump complicated by mild NPDR and CAD, hypothyroidism, depression, anxiety, presenting after intentional benzodiazepine and and hydroxyzine overdose. IPDM consulted for management of T1DM. Home regimen: Tandem T:slim insulin pump with Novolog insulin (currently off pump) Basal rate: 1.2 U/hr ICR 1:15 ISF 100, target 120 mg/dl Average daily dose over past 2 weeks: 30 units (basal 28.5 units or 78%, bolus 6.5 units) Wegovy 2.4 mg weekly She was appropriately transitioned off her pump onto injections in the ED due to poor mental status. Recommend continuing injections while she remains on section 12 hold and suicide precautions. Suicide attempt 12/27 afternoon by intentionally injecting aspart U-100 300 units x 1 and attempting to inject another 300 units afterwards. Valiant collaborative effort by Medicine team/RN team/ICU team to keep patient alive and safe overnight-transferred to ICU. Blood glucose trend improving. Continue current regimen. Recommendations: Lantus 18 units qam, if NPO give 14 units. Please do not hold basal insulin in pt with type 1 diabetes Lispro 5 units with each Ensure Plus. Given after finishing supplement. Hold if NPO Mod SHANI 0-12 units qac Lispro 0-7 unit ss TID AC starting with glucose > 200 mg/dl FSBG AC, HS, and if any signs or symptoms of hypoglycemia Assessment & Plan (01/12/2024 2:52 PM EST): Ms. Rowe is a 48 y.o. female with PMH notable for T1DM (A1c 7.6% 12/21/2023) on Tandem T:slim with Control IQ insulin pump complicated by mild NPDR and CAD, hypothyroidism, depression, anxiety, presenting after intentional benzodiazepine and and hydroxyzine overdose. IPDM consulted for management of T1DM. Home regimen: Tandem T:slim insulin pump with Novolog insulin (currently off pump) Basal rate: 1.2 U/hr ICR 1:15 ISF 100, target 120 mg/dl Average daily dose over past 2 weeks: 30 units (basal 28.5 units or 78%, bolus 6.5 units) Wegovy 2.4 mg weekly She was appropriately transitioned off her pump onto injections in the ED due to poor mental status. Recommend continuing injections while she remains on section 12 hold and suicide precautions. Suicide attempt 12/27 afternoon by intentionally injecting aspart U-100 300 units x 1 and attempting to inject another 300 units afterwards. Valiant collaborative effort by Medicine team/RN team/ICU team to keep patient alive and safe overnight-transferred to ICU. Ongoing hyperglycemia. Again, BMP without concern for DKA. Intensifying SHANI from custom low to regular moderate. Add custom low SHANI to bedtime Increase Lantus from 14 units to 18 units. Encouraged more free water intake and ambulation/exercise as able. Recommendations: Lantus 18 units qam, if NPO give 14 units. Please do not hold basal insulin in pt with type 1 diabetes Lispro 5 units with each Ensure Plus. Given after finishing supplement. Hold if NPO Mod SHANI 0-12 units qac Lispro 0-7 unit ss TID AC starting with glucose > 200 mg/dl FSBG AC, HS, and if any signs or symptoms of hypoglycemia Assessment & Plan (01/11/2024 11:45 AM EST): Ms. Rowe is a 48 y.o. female with PMH notable for T1DM (A1c 7.6% 12/21/2023) on Tandem T:slim with Control IQ insulin pump complicated by mild NPDR and CAD, hypothyroidism, depression, anxiety, presenting after intentional benzodiazepine and and hydroxyzine overdose. IPDM consulted for management of T1DM. Home regimen: Tandem T:slim insulin pump with Novolog insulin (currently off pump) Basal rate: 1.2 U/hr ICR 1:15 ISF 100, target 120 mg/dl Average daily dose over past 2 weeks: 30 units (basal 28.5 units or 78%, bolus 6.5 units) Wegovy 2.4 mg weekly She was appropriately transitioned off her pump onto injections in the ED due to poor mental status. Recommend continuing injections while she remains on section 12 hold and suicide precautions. Suicide attempt 12/27 afternoon by intentionally injecting aspart U-100 300 units x 1 and attempting to inject another 300 units afterwards. Valiant collaborative effort by Medicine team/RN team/ICU team to keep patient alive and safe overnight-transferred to ICU. Ongoing hyperglycemia. BMP without concern for DKA. Has essentially been receiving 4 units of Lispro with each Ensure Plus but glucose levels remain well above goal range. There is no solid food being eaten so we just need to adjust insulin doses for the supplements. We will increase the insulin across the board today - Lantus from 14 units to 16 units, Lispro to 5 units with Ensure Plus, and intensify the Lispro SS. Recommendations: Lantus 16 units qam, if NPO give 14 units. Please do not hold basal insulin in pt with type 1 diabetes Lispro 5 units with each Ensure Plus. Given after finishing supplement. Hold if NPO Lispro 0-7 unit ss TID AC starting with glucose > 200 mg/dl FSBG AC, HS, and if any signs or symptoms of hypoglycemia Assessment & Plan (01/10/2024 3:22 PM EST): Ms. Rowe is a 48 y.o. female with PMH notable for T1DM (A1c 7.6% 12/21/2023) on Tandem T:slim with Control IQ insulin pump complicated by mild NPDR and CAD, hypothyroidism, depression, anxiety, presenting after intentional benzodiazepine and and hydroxyzine overdose. IPDM consulted for management of T1DM. Home regimen: Tandem T:slim insulin pump with Novolog insulin (currently off pump) Basal rate: 1.2 U/hr ICR 1:15 ISF 100, target 120 mg/dl Average daily dose over past 2 weeks: 30 units (basal 28.5 units or 78%, bolus 6.5 units) Wegovy 2.4 mg weekly She was appropriately transitioned off her pump onto injections in the ED due to poor mental status. Recommend continuing injections while she remains on section 12 hold and suicide precautions. Suicide attempt 12/27 afternoon by intentionally injecting aspart U-100 300 units x 1 and attempting to inject another 300 units afterwards. Valiant collaborative effort by Medicine team/RN team/ICU team to keep patient alive and safe overnight-transferred to ICU. Glucose levels well above goal range. Her food intake has been unpredictable. Ensure Plus is going to have 47 g CHO per bottle. Suggest we start by covering with Lispro 2 units. Recommend giving after Ensure Plus to ensure she actually consumes nutrition and needs coverage. Recommendations: Lantus 14 units qam, if NPO give same dose. Please do not hold basal insulin in pt with type 1 diabetes Lispro 2 units AC. HOLD if NPO or eating < 25% of meal tray Lispro 2 units with Ensure Plus. Lispro 0-6 unit ss TID AC starting with glucose > 200 mg/dl FSBG AC, HS, and if any signs or symptoms of hypoglycemia Assessment & Plan (01/03/2024 6:32 PM EST): Patient was on insulin pump (basal rate 24 units) and followed by Dr. Raoul Nogueira. Her insulin pump was taken off in the ED. Blood glucose management complicated by suicide attempt with insulin, as above. Endocrinology following closely for management. - Appreciate DM Endocrine recs - POCT AC and HS - Lantus 14 units daily (12 units if NPO) DO NO HOLD - Lispro 4 units TID AC (HOLD if NPO or low PO intake) - Lispro 0-7 units sliding scale TID AC - Discontinued Jardiance (had not started yet per patient) - contraindicated in DM1 - Hold [facility] Assessment & Plan (01/02/2024 4:04 PM EST): Patient was on insulin pump (basal rate 24 units) and followed by Dr. Raoul Nogueira. Her insulin pump was taken off in the ED. Blood glucose management complicated by suicide attempt with insulin, as above. Endocrinology following closely for management. - Appreciate DM Endocrine recs - POCT AC and HS - Lantus 14 units daily (12 units if NPO) DO NO HOLD - Lispro 4 units TID AC (HOLD if NPO or low PO intake) - Lispro 0-7 units sliding scale TID AC - Discontinued Jardiance (had not started yet per patient) - contraindicated in DM1 - Hold [facility] Assessment & Plan (01/01/2024 6:46 PM EST): Patient was on insulin pump (basal rate 24 units) and followed by Dr. Raoul Nogueira. Her insulin pump was taken off in the ED. Blood glucose management complicated by suicide attempt with insulin, as above. Endocrinology following closely for management. - Appreciate DM Endocrine recs - POCT AC and HS - Lantus 14 units daily (12 units if NPO) - Lispro 4 units TID AC (HOLD if NPO or low PO intake) - Lispro 0-7 units sliding scale TID AC - Discontinued Jardiance (had not started yet per patient) - contraindicated in DM1 - Hold [facility] Assessment & Plan (12/31/2023 1:24 PM EST): Assessment & Plan (12/31/2023 1:18 PM EST): Patient was on insulin pump (basal rate 24 units) and followed by Dr. Raoul Nogueira. Her insulin pump was taken off in the ED. Blood glucose management complicated by suicide attempt with insulin, as above. Endocrinology following closely for management. - Appreciate DM Endocrine recs - POCT AC and HS - Lantus 14 units daily (12 units if NPO) - Lispro 4 units TID AC (HOLD if NPO or low PO intake) - Lispro 0-7 units sliding scale TID AC - discontinued Jardiance (had not started yet per patient) - contraindicated in DM1 - Hold Wegovy Assessment & Plan (01/04/2024 12:33 PM EST): Ms. Rowe is a 48 y.o. female with PMH notable for T1DM (A1c 7.6% 12/21/2023) on Tandem T:slim with Control IQ insulin pump complicated by mild NPDR and CAD, hypothyroidism, depression, anxiety, presenting after intentional benzodiazepine and and hydroxyzine overdose. IPDM consulted for management of T1DM. Home regimen: Tandem T:slim insulin pump with Novolog insulin Basal rate: 1.2 U/hr ICR 1:15 ISF 100, target 120 mg/dl Average daily dose over past 2 weeks: 30 units (basal 28.5 units or 78%, bolus 6.5 units) Wegovy 2.4 mg weekly She was appropriately transitioned off her pump onto injections in the ED due to poor mental status. Recommend continuing injections while she remains on section 12 hold and suicide precautions. Suicide attempt 12/27 afternoon by intentionally injecting aspart U-100 300 units x 1 and attempting to inject another 300 units afterwards. Valiant collaborative effort by Medicine team/RN team/ICU team to keep patient alive and safe overnight-transferred to ICU. Glucose dropped from 162 mg before dinner to 83 mg/dL after she received Lispro 1 unit as her correction insulin dose. She continue to have poor appetite. I will update her Lispro ss starting with BG > 200 mg/dL Recommendations:(orders updated in [facility]) - Lantus 14 units qam, if NPO give 12 units -Please do not hold basal insulin in pt with type 1 diabetes - Decrease Lispro to 3 units AC. HOLD if NPO or not eating much - Lispro 0-7 unit ss TID AC starting with glucose > 200 mg/dL Blood glucose (mg/dL) Insulin dose If Glucose 70-150 = 0 unit If Glucose 151-200 = 0 unit If Glucose 201-250 = 2 units If Glucose 251-300 = 4 units If Glucose 301-350 = 5 units If Glucose 351-400 = 6 units If Glucose >400 = 7 units and call RC - FSBG AC, HS, and if any signs or symptoms of hypoglycemia Assessment & Plan (12/30/2023 7:45 AM EST): Assessment & Plan (12/29/2023 2:29 PM EST): Assessment & Plan (12/28/2023 5:38 PM EST): Assessment & Plan (12/28/2023 4:23 PM EST): Patient is on insulin pump (basal rate 24 units) and followed by Dr. Raoul Nogueira. Her insulin pump was taken off in the ED. Sugars were labile so DM Endocrine consulted. Course c/b hypoglycemia in the context of SA as above. On 12/27, pt self reported administration of 300 units of novolog. Endocrine was rapidly involved, started on D10W gtt at 200cc/hr, given 1 amp dextrose, with plans for q15 min glucose checks, and transfer to ICU. Recommend continuing q15 glucose checks for 1-2 hours, and slowly taper down (likely q1-2 hrs) as dosing pt took alters pharmcokinetics and thus effects of novolog may be longer than normally anticipated. She was mentating appropriately, with only focal sxs being mild lightheadedness or dizziness. - Appreciate DM Endocrine consult evaluation and adjustment of insulin - - Prior to self ingestion, and ICU transfer, she was ordered for: lantus 12u QHS, Lispro 3u TID, low SHANI - POCT glucose QAC and QHS. - D/C Jardiance (has not started yet per patient) - contraindicated in DM1 - Hold [place] Assessment & Plan (12/27/2023 12:44 PM EST): Patient is on insulin pump and followed by Dr. Raoul Nogueira. Her insulin pump was taken off in the ED. Noted labile blood sugars 12/25 - mostly hyperglycemia, though noted FS 27 in afternoon. Patient is normally on 24 units of basal rate with insulin pump which has been paused for now. - Appreciate DM Endocrine consult evaluation and adjustment of insulin - Lantus 12u QHS, Lispro 3u TID, low SHANI. - POCT glucose QAC and QHS. - D/C Jardiance (has not started yet per patient) - contraindicated in DM1. - Hold Wegovy. Assessment & Plan (12/29/2023 3:06 PM EST): Ms. Rowe is a 48 y.o. female with PMH notable for T1DM (A1c 7.6% 12/21/2023) on Tandem T:slim with Control IQ insulin pump complicated by mild NPDR and CAD, hypothyroidism, depression, anxiety, presenting after intentional benzodiazepine and and hydroxyzine overdose. IPDM consulted for management of T1DM. Home regimen: Tandem T:slim insulin pump with Novolog insulin Basal rate: 1.2 U/hr ICR 1:15 ISF 100, target 120 mg/dl Average daily dose over past 2 weeks: 30 units (basal 28.5 units or 78%, bolus 6.5 units) Wegovy 2.4 mg weekly She was appropriately transitioned off her pump onto injections in the ED due to poor mental status. Recommend continuing injections while she remains on section 12 hold and suicide precautions. Suicide attempt yesterday afternoon by intentionally injecting aspart U-100 300 units x 1 and attempting to inject another 300 units afterwards. Val[facility] collaborative effort by Medicine team/RN team/ICU team to keep patient alive and safe overnight. We are now dealing with hyperglycemia (no e/o DKA on morning labs) and will focus our next 1-2 days on slowly achieving euglycemia. Given her recent attempts for self harm this morning PO diet status is unclear. Spoke with RC - not eating much at this time. Okay from our perspective to resume SHANI before meals. Standing Lispro dose depends on whether or not she is eating a full meal or just a few bites. Given Lantus was essentially moved to morning today (10 units given at 0507 and another 4 units given at 0840 suggest we switch administration orders to 0900 tomorrow for full Lantus 14 units daily. Addendum 1500: Glucose not correcting with custom low dose SHANI. Recommend we customize moderate dose SHANI before meals and at bedtime for now. Recommendations: - Lantus 14 units qam, if NPO give 12 units -Please do not hold basal insulin in pt with type 1 diabetes - Lispro 4 units TID AC. HOLD if NPO or not eating much - Lispro 0-10 unit ss TID AC and HS (while hyperglycemic) - FSBG q1h Assessment & Plan (12/26/2023 10:14 AM EST): Patient is on insulin pump and followed by Dr. Raoul Nogueira. Her insulin pump was taken off in the ED. - Insulin regimen was discussed with her outpatient laser beam trim operator (kraig) - Start glargine 20 units qhs (patient is normally on 24 units of basal rate with pump), 10 units of patient is not eating/NPO - Lispro 4 units TIDAC and LSSI - appreciate diabetes team - POCT glucose QID - Hold home Jardiance (has not started yet per patient), and Werachelvjared Assessment & Plan (12/25/2023 6:45 PM EST): Patient is on insulin pump and followed by Dr. Raoul Nogueira. Her insulin pump was taken off in the ED. - Insulin regimen was discussed with her outpatient laser beam trim operator (kraig) - Start glargine 20 units qhs (patient is normally on 24 units of basal rate with pump), 10 units of patient is not eating/NPO - Lispro 2-3 units TIDAC and LSSI (will hold off of meal time insulin for now and ensure if she can eat) - POCT glucose QID - Consult diabetes in AM for formal consult - Hold home Jardiance (has not started yet per patient), and Yael Assessment & Plan (11/09/2023 8:49 AM EDT): 48-year-old woman with history of type 1 diabetes since age 15, she is now on her closed-loop t:slim with control IQ insulin pump, average glucose a little bit higher, but over the last week she had a couple of days with the infusion site occlusions. Will cut down her basal rate to 1.0 units/h, no other changes; will consider switching her to Fiasp insulin down the road. Will check blood test soon. Assessment & Plan (08/31/2023 10:46 AM EDT): Closely managed by Dr. Nogueira. Reviewed her labs, up to date Assessment & Plan (05/04/2023 8:56 AM EDT): 48-year-old woman with history of type 1 diabetes since age 15, she is doing quite well on her new iLet insulin pump, minimal hypoglycemia, and time goal is improved significantly. Will check blood test today, no changes. Assessment & Plan (08/26/2022 9:44 AM EDT): Up to date. Assessment & Plan (07/07/2022 10:38 AM EDT): 47-year-old woman with history of type 1 diabetes since age 15, her A1c is close to goal on her t:slim with control IQ insulin pump, however when you look at her daily glucose profile she has large postprandial spikes, because she does not enter the carbs in her pump and she does not have a bolus premeals. We discussed again trying to do so and not just rely on control IQ auto boluses to bring her down, she should have less variability. We will review her data in about a month, we will follow- up on a regular basis. Assessment & Plan (03/10/2022 10:58 AM EST): Remains on ozempic at 2.4 mg and doing great. Assessment & Plan (12/30/2021 12:21 PM EST): 46-year-old woman with history of type 1 diabetes for many years, overall she has been doing quite well with her t:slim with control IQ insulin pump, however she has been postprandial spikes because she does not enter the carbs for meals and she does not boluses for diet, she is also in the sleep mode with a long. We discussed removing the sleep mode and be sure to always enter the amount of carbs per meal, she will have fewer spikes and she will also have fewer drops with overall better glucose control; recent A1c is close to goal, no other changes. Assessment & Plan (07/10/2021 12:10 PM EDT): Up to date Assessment & Plan (07/02/2021 2:37 PM EDT): 46-year-old woman with history of type 1 diabetes for many years, she is doing quite well with her t:slim with control IQ insulin pump, recent A1c is a little bit higher at 7.5%, we discussed being sure to bolus predinner and not after been dinner so she will avoid nocturnal hypoglycemia but also avoid having high postprandial spikes. No changes to her settings right now we will check a A1c in a few months Assessment & Plan (12/17/2020 12:07 PM EDT): 1. Excellent control Assessment & Plan (12/02/2020 2:18 PM EDT): 45-year-old woman with history of type 1 diabetes for many years, she is doing quite well with her t:slim with control IQ insulin pump and Dexcom G6 continuous glucose monitor, recent hemoglobin A1c was excellent at 6.4% in absence of frequent or severe hypoglycemia. No change in pump settings, will check another A1c in a few months. Assessment & Plan (08/20/2020 2:22 PM EDT): 45-year-old woman with history of type 1 diabetes for many years, she is now using a t:slim with control IQ insulin pump and Dexcom G6 continuous glucose monitor, doing quite well with her latest A1c at 7.1%. We discussed being careful eat bolusing before each meal, she will check an A1c soon. No changes to her pump setting for the time being. Assessment & Plan (04/17/2020 2:23 PM EST): 45-year-old woman with history of type 1 diabetes for many years, she is using a t:slim control IQ pump with Dexcom CGM. Although her A1c is close to goal, she is having large post dinner spikes because she is not bolusing for dinner, and then she has some hypoglycemia at night. We discussed taking a bolus before each dinner in order to avoid going high, will also change the insulin sensitivity factor to 40 to avoid nocturnal hypoglycemia. No other changes for the time being. Assessment & Plan (01/02/2020 4:22 PM EST): 44-year-old woman with history of type 1 diabetes for several years, now it is managed with a t:slim control IQ insulin pump and Dexcom CGM. She is doing very well on it, last A1c was 6.7%, in absence of frequent or severe hypoglycemia. No changes to her pump settings as needed, will check blood test again in 3 months. Assessment & Plan (09/24/2019 4:21 PM EDT): 1. Much better with GLP-1 and new pump, also low carb lifestyle Assessment & Plan (07/26/2019 3:55 PM EDT): 44-year-old woman with history of type 1 diabetes managed with the T slim control IQ insulin pump in the automated mode. That has improved her glucose control significantly, recent A1c is fantastic at 6.6%, in absence of frequent or severe hypoglycemia. No changes to her pump therapy, will follow-up in a few months. Assessment & Plan (07/05/2019 10:03 AM EDT): A1C looks wonderful after changing insulin pump and starting appetite suppressant. She is thrilled, states she has never seen her A1C this low before. Assessment & Plan (06/12/2019 4:35 PM EDT): 1. Doing better by pt report 2. Next A1c due this summer Assessment & Plan (03/19/2019 2:48 PM EST): - Add GLP-1 and monitor sugars - Work with team at diabetes center to make changes as needed to pump dosing if sugars go lower - HEMOGLOBIN A1C Date Value Ref Range Status 03/08/2019 10.4 (H) 4.3 - 6.4 % Final - A1C quite high so have room to work with - Can consider adding sglt-2 if needed as well - Discussed advantages of low carb lifestyle for optimal weight loss and diabetes control - Could consider working with [facility] if she desires or appt with our RD's to formulate a therapeutically carbohydrate reduced meal plan in a healthy fashion Assessment & Plan (01/24/2019 12:40 PM EST): 43-year-old woman with type 1 diabetes managed with an insulin pump and our continuous glucose monitor. Her last A1c was quite high but her glucose profile are much better, will check another A1c today. We also discussed upgrading to a new one that she has is out of warranty, I gave her a brochure about the T slim and she will follow-up with them. We discussed strategies to decrease her bedtime snacks, or cover them a little bit more effectively. Assessment & Plan (06/28/2018 2:32 PM EDT): Will check fasting BMP and A1C Upcoming appt with Dr. Nogueira. Assessment & Plan (04/16/2017 9:26 AM EST): Followed closely by endo. Assessment & Plan (03/02/2017 3:05 PM EST): 41-year-old woman with type 1 diabetes and insulin pump therapy, in the process of obtaining a continuous glucose monitor that should help her glucose control. Hemoglobin A1c has improved significantly, still not goal but much better, we'll check urinary microalbuminuria today. She will contact me when she has the continuous glucose monitor and then will be able to downloaded and look at her patterns. Assessment & Plan (07/22/2016 4:28 PM EDT): 41-year-old woman with diagnosis of type 1 diabetes since 1990, her glucose control has been chronically very poor, at least partially secondary to depression. We discussed improving her overall control, and we'll perform an ambulatory continuous glucose monitor in order to adjust her pump setting in an efficient way. She will also bring her glucose monitoring order to link it to her pump so we could obtain more data. I also asked her to check at least 4 times a day home glucose values in order to give herself appropriate boluses. Assessment & Plan (03/29/2015 3:29 PM EST): Suboptimal control, will increase basal rate to 1.4 at night and later during the day, discussed entering carbs and using pump wizard, will send me an e-mail jessica Week to see whether numbers will improve; check A1c today. Resolved Problems Problem Noted Date Diagnosed Date Resolved Date Myalgia, upper arm 03/10/2022 3 Overview (03/10/2022): Pt c/o bilateral UE muscle pain from neck to forearms. Unsure if it is due to statins. She was cahnged to pravachol 01/2022, however pain remains. She is working with Dr. Rodriguez and considering repatha. Assessment & Plan (08/26/2022 9:48 AM EDT): Improved with repatha! Assessment & Plan (03/10/2022 10:56 AM EST): Will try stopping statins x 2 weeks. She will correspond re: symptoms Cardiac arrest 03/13/2016 07/26/2017 Overview (03/13/2016): Cardiac arrest. Service date: 09/10/2011. Author: Nohemy Heaton MD. Obesity (BMI 30-39.9) 05/17/20152019 Assessment & Plan (10/31/2015 7:49 PM EDT): (E-Visit) Asynchronous Virtual Visit Summary Patient: Kamran Weir ( ) Clinician: Dr. Yi Andarde Questionnaire: [facility] Follow-up Completed by Patient: 06/24/2015 Reviewed by Clinician: 10/30/2015 9:39 a.m. Duration: Eleven to fifteen minutes Follow-up: No further action requested. Dr. Andrade spoke with the patient. Note from Dr. Andrade: Dear Kamran, We spoke today by telephone about your weight. I agree with stopping the lorcaserin and i'll send a prescription for phentermine. I also placed an order to get an upper GI study (aka barium swallow) to look at your anatomy and if it is a cause of your weight gain. Best, Dr. Andrade Patient Responses What is your current weight in pounds? 172.4 Did you lose or gain weight since your last visit? No change Where was the scale that you used to weigh yourself? Home Are you following a nutritional/behavioral plan to improve your eating habits? Yes What is your approach? I have another program (e.g. Weight Watchers, Brianna Jed, online programs, etc.) Yes Please name and describe the program: Appetite suppressant (Belviq), exercise How many days a week do you stick to your plan, on average? 5; Although, I just started Belviq like 1-2 weeks ago What specific things are you doing? Being mindful of what I am eating, including paying attention to feelings of hunger and fullness Yes Eating regular meals and possibly a small snack in between meals Yes Watching portion sizes Yes Making use of meal replacements (e.g. shakes, pre-packaged meals) Yes Reducing carbs Yes Increasing fruits and vegetables Yes Making sure there is protein in every meal Yes Reducing sugary or high-calorie drinks (soda, juice, milk, alcohol) and diet soda Yes Being aware of and avoiding eating out of habit, boredom, or emotions Yes Removing tempting foods from the house Yes Enlisting the help or support of others in my efforts Yes If you are journaling or otherwise tracking your caloric intake, what is the typical or average number of calories you eat in a day? n/a Is your lifestyle (work, daily activities) generally active? Yes, somewhat active Are you performing regular exercise in addition to your usual daily activities? Yes How many days per week do you exercise? walk every day, gym 1-2 times a week How long are your exercise sessions? 1-1.5 hours What type(s) of exercise? walking/treadmill Are you keeping track of your activity level, e.g. with a pedometer, device, or smartphone? No How many hours of sleep do you get in a typical night? 8 How is the quality of your sleep, and do you feel well-rested after you get up? sometimes If you have been working on improving your sleep habits, what have you been doing? n/a How stressful is your life nowadays? There is stress, but it does not impact my eating habits Has there been a major change in your health since your last visit? No Has there been a change in your medications or other treatment (e.g. surgery, shots, procedures) since your last visit? No Which of the following anti-obesity medications have you taken since your last visit? Lorcaserin (Belviq) Yes What is your current dose of Lorcaserin (Belviq)? 5 mg? At what time(s) do you take Lorcaserin (Belviq)? morning, before dinner How regularly do you take Lorcaserin (Belviq)? Regularly Have you experienced any side effects from the medication? None of the above Yes What has your experience with hunger been, since you started the medications, or since the last time the dose was changed? I feel less hunger at times, but not all the time What has your experience with fullness been, since you started the medications, or since the last time the dose was changed? I feel more full with less food at times, but not all the time What has your experience with interest in food, or food cravings been, since you started the medications, or since the last time the dose was changed? I feel less interested in food (or fewer cravings) at times, but not all the time What has your experience with bingeing or emotional eating been, since you started the medications, or since the last time the dose was changed? I binge or emotionally eat less, most of the time Daytime phone number [phone], cell [phone]; ?can we increase the dose of belviq? Smoker 04/18/2004 01/25/2015 Overview (04/07/2014): Smoking; *See attached note in LMR Encounters Date Type Department Care Team Description 10/13/2024 Telephone [facility] [address] [facility], [address] [place] [address] Jeremias Lawrence MD 10/08/2024 5:29 PM EDT - 10/13/2024 11:00 PM EDT Hospital Encounter [facility] Emergency Dept [address] [place] [phone] Lambert Mesa MD Coffey, [place] Cent[place] C, MD Cranmer, Hilarie H, MD, MPH Zo Burden MD, MPH Allison Castillo MD Tyson, John W, MD Babapoorfarrokhr an, Sahand, MD, PhD Emma Burton MD Taylor, John B, MD, RENATO Ban Zapata MD Bond, Akin Elise MD, MPH Pavithra Saunders MD Bains, Ashika, MD Kim, Youngjung R, MD, PhD Vern Rivas MD Discharge Disposition: [facility] 10/07/2024 8:00 AM EDT Telemedicine [facility] Diabetes Center [address] [place] [address] Timbo Calle MD Type 1 diabetes mellitus with other specified complication (Primary Dx) 10/05/2024 Orders Only [address], [address] [place] [address] Jeremias Lawrence MD 10/05/2024 Orders Only [address], [address] [place] [address] Jeremias Lawrence MD 10/04/2024 4:29 PM EDT - 10/04/2024 11:59 PM EDT Hospital Encounter [facility] [address] [facility] [address] [place] [address] Jeremias Lawrence MD Discharge Disposition: Home or Self Care 10/04/2024 4:29 PM EDT Hospital Encounter [facility] [address] [facility] [address] [place] [address] Manda Dorantes MD, MPH Discharge Disposition: Home or Self Care 10/04/2024 3:30 PM EDT Telemedicine [address], [address] [place] [address] Jeremias Lawrence MD Generalized anxiety disorder with panic attacks (Primary Dx); 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; 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 10/02/2024 Orders Only [facility] [address] [place] [address], [address] [place] [address] Manda Dorantes MD, MPH Vitamin D deficiency, unspecified (Primary Dx) 09/25/[address], [address] [place] [address] Jeremias Lawrence MD Medication Refill 09/04/2024 10:30 AM EDT Office Visit [facility] [address] [facility], 6th [place] [address] Manda Dorantes MD, MPH Ischemic cardiomyopathy (Primary Dx); ST elevation myocardial infarction involving left anterior descending (LAD) coronary artery; Type 1 diabetes mellitus with other specified complication; Other depression; Encounter for annual routine gynecological examination; Health care maintenance; History of obesity; Hypothyroidism due to Estevan thyroiditis 08/21/2024 6:13 AM EDT - 08/21/2024 11:59 PM EDT Hospital Encounter [facility] PATHOLOGY [facility] [address] [facility] [place] [address] Discharge Disposition: Home or Self Care 07/25/2024 10:30 AM EDT Telemedicine [facility] [address] [facility], [address] [place] [address] Jeremias Lawrence MD Generalized anxiety disorder with panic attacks (Primary Dx); 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; 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 07/24/2024 11:00 AM EDT Office Visit [facility] Cardiovascular Medicine [address] [facility], 5th [address], [address] [place] [address] Tanvi Rodriguez MD, DrPH Chest pain (Primary Dx); Coronary artery disease involving koyuk coronary artery of 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 07/22/2024 10:40 AM EDT Telemedicine [facility] [address] [place] [address] Tayler Hewitt DO Acute maxillary sinusitis, recurrence not specified (Primary Dx) 07/14/2024 Telephone [facility] Weight Center [address] [place] [address] Sammy Groves MD Medication Prior Authorization (Wegovy) from Last 3 Months Immunizations Immunization Administration Dates Next Due COVID-19 (Pre-12/07) Moderna Vaccine, mRNA, PF 12/21/2020,03/23/2020,02/24/2020 Influenza Quadrivalent Prese rvative Free IM 11/25/2020,10/08/2019,10/08/2019,10/07,10/08/2019,11/08/2018,11/26/2017 ,02/19/2017 Influenza, Unspecified Formulation 12/03,12/07/2021,04/03/2015,11/07,11/03/2012,11/23/2011,10/31/2011 ,10/31/2010,01/30/2005,12/31/1999 Pneumococcal conjugate PCV20 07/10/2021 Pneumococcal polysaccharide PPSV23 05/03/1996 Td, unspecified formulation 05/03/1996 Tdap 07/10/2021,01/12/2011 Family History Medical History Relation Comments Cataracts Maternal Grandmother Anxiety disorder Mother Anxiety disorder Sister Relation Status Comments Maternal Grandmother Mother Sister Social History Tobacco Use Types Packs/Day Years Used Date Smoking Tobacco: Former Cigarettes 0.5 7 2 008 - 2014 Smokeless Tobacco: Former Quit: 2006 Tobacco Cessation:Counseling Given: Not Answered Alcohol Use Standard Drinks/Week Comments Yes 0 [...] high school, GED, job training, learning the Armenian language, technical skills, or developing parenting skills)? [...] Orientation Straight 12/23/2023 7: 45 PM EST Last Filed Vital Signs Vital Sign Reading Time Taken Comments Blood Pressure 109/67 10/13/2024 10:23 PM EDT Pulse 76 10/13/2024 10:23 PM EDT Temperature 36.4 C (97.6 F) 10/13/2024 10:23 PM EDT Respiratory Rate 16 10/13/2024 10:2 3 PM EDT Oxygen Saturation 100% 10/13/2024 10: 23 PM EDT Inhaled Oxygen Concentration 21% 01/31/2024 9 :45 AM EST Weight 56.2 kg (123 lb 14.4 oz) 025 10:26 AM EDT Height 150.5 cm (4' 11.25 ) 09/04/2024 10:26 AM EDT Body Mass Index 24.81 09/04/2024 10:26 AM EDT Plan of Treatment Upcoming Encounters Date Type Department Care Team (Late st Contact Info) Description 10/23/2024 8:00 AM EDT Appointment [facility] Nuclear Medicine [address] [place] [address] Tanvi Rodriguez MD, DrPH [address] [place] [address] [address] [place] [address] [email or web address] 10/24/2024 2:30 PM EDT Telemedicine [facility] [address] [facility] [place] [address] [place] [address] Jeremias Lawrence MD [address] [place] [address] 8 [place] [address] [email or web address] 11/07/2024 9:00 AM EDT Telemedicine [facility] [address] [facility], [address] [place] [address] Jeremias Lawrence MD [address] [place] [address] 8 [place] [address] [email or web address] 12/13/2024 8:30 AM EDT Telemedicine [facility] Weight Center [address] [place] [address] [address] [place] [address] Sammy Groves MD [address] [facility], 4th [address] [place] [address] [email or web address] 01/08/2025 12:35 PM EST Office Visit [facility] Diabetes Center [address] [facility] [address] [place] [address] Timbo Calle MD [address] [place] [address] [phone] [place] [address] [email or web address] Health Maintenance Due Date Last Done Comments COLONOSCOPY 2022 FIT TEST 2022 FOBT 2022 SIGMOIDOSCOPY 2022 VIRTUAL COLONOSCOPY 2022 COVID-19 VACCINE ( season) 2023 12/21/2020, 03/23/2020, 02/24/2020 DIABETIC EYE EXAM 07/19/2024 07/20/2023, , 07/20/2023, Additional history exists INFLUENZA VACCINE (#1) 2024 , 12/03/2022, 12/07/2021, Additional history exists URINE MICROALBUMIN/CREATININE RATIO 12/20/2024 12/21/2023, 05/04/2023, 12/24/2021, Additional history exists PAP SMEAR 01/01/2025 01/02/2020, 12/16, 01/31/2016, Additional history exists DEPRESSION SCREENING 02/12/2025 02/13/2024, 08/27/19 23 HEMOGLOBIN A1C 02/21/2025 08/21/2024, 04/0 02/2024, 04/10/2024, Additional history exists BLOOD PRESSURE 03/07/2025 09/04/2024 LIPID PANEL 08/21/2025 08/21/2024, 04/15, 09/07/2022, Additional history exists MAMMOGRAM 09/22/2025 09/23/2023, 04/2 05/2022, 05/14/2020, Additional history exists TSH LEVEL 10/04/2025 10/04/2024, 04/0 02/2024, 04/10/2024, Additional history exists COLOGUARD 10/09/2025 10/09/2022 COLORECTAL CANCER SCREENING 10/09/2025 IUD 01/02/2028 01/02/2020 SMOKING STATUS SCREENING (Every 5 Years) 07/24/2029 07/24/2024 Adult Td,Tdap Booster 07/11/2031 07/10/2021 , 01/12/2011, 05/03/1996 HEPATITIS C SCREENING Completed 10/18/2018 HIV ONE-TIME SCREENING (18-65 YEARS) Completed 10/18/2018 PNEUMOCOCCAL VACCINES (0-49 years) Completed 07/10/2021, 05/03/1996 HEPATITIS A VACCINES Aged Out No long er eligible based on patient's age to complete this topic HIB VACCINES Aged Out No longer eligi ble based on patient's age to complete this topic MENINGOCOCCAL VACCINES (ACWY) Aged Out No longer eligible based on patient's age to complete this topic MENINGOCOCCAL VACCINES (B) Aged Out N o longer eligible based on patient's age to complete this topic Medical Devices Not on file Procedures Procedure Name Priority Date/Time Associated Diagnosis Comments POCT GLUCOSE Routine 10/13/2024 9:52 PM EDT POCT GLUCOSE Routine 10/13/2024 8:39 PM EDT POCT GLUCOSE Routine 10/13/2024 8:39 PM EDT POCT GLUCOSE Routine 10/13/2024 6:33 PM EDT POCT GLUCOSE Routine 10/13/2024 6:33 PM EDT URINALYSIS W/REFLEX URINE CULTURE STAT 10/13/2024 2:11 PM EDT POCT GLUCOSE Routine 10/13/2024 1:20 PM EDT BASIC METABOLIC PANEL STAT 10/13/2024 1:11 PM EDT CBC AND DIFFERENTIAL STAT 10/13/2024 1:11 PM EDT POCT GLUCOSE [...] POCT GLUCOSE Routine 10/09/2024 6:07 AM EDT BASIC METABOLIC PANEL STAT 10/09/2024 5:17 AM EDT KETONE BODIES, SERUM STAT 10/09/2024 5:17 AM EDT POCT GLUCOSE Routine 10/09/2024 5:02 AM EDT URINALYSIS W/REFLEX URINE CULTURE STAT 10/09/2024 4:19 AM EDT POCT GLUCOSE Routine 10/08/2024 9:37 PM EDT POCT GLUCOSE Routine 10/08/2024 9:36 PM EDT POCT GLUCOSE Routine 10/08/2024 8:12 PM EDT URINE HCG STAT 10/08/2024 7:49 PM EDT TOXICOLOGY SCREEN, URINE STAT 10/08/2024 7:49 PM EDT ETHANOL, BLOOD STAT 10/08/2024 5:56 PM EDT LFTS (HEPATIC PANEL) STAT 10/08/2024 5:56 PM EDT BASIC METABOLIC PANEL STAT 10/08/2024 5:56 PM EDT CBC AND DIFFERENTIAL STAT 10/08/2024 5:56 PM EDT 25-OH VITAMIN D Routine 10/04/2024 4:30 PM EDT Vitamin D deficiency, unspecified TSH WITH REFLEX Routine 10/04/2024 4:29 PM EDT 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 Generalized anxiety disorder with panic attacks 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 FREE T4 Routine 10/04/2024 4:29 PM EDT 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 Generalized anxiety disorder with panic attacks 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 T3, TOTAL Routine 10/04/2024 4:29 PM EDT 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 Generalized anxiety disorder with panic attacks 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 LIPID PANEL Routine 08/21/2024 6:26 AM EDT Coronary artery disease involving koyuk coronary artery of 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 HEMOGLOBIN A1C Routine 08/21/2024 6:26 AM EDT Type 1 diabetes mellitus with other specified complication PARATHYROID HORMONE (PTH) Routine 08/21/2024 6:26 AM EDT Hyperparathyroidism, unspecified Vitamin D deficiency, unspecified BASIC METABOLIC PANEL Routine 08/21/2024 6:26 AM EDT Hyperparathyroidism, unspecified Vitamin D deficiency, unspecified 25-OH VITAMIN D Routine 08/21/2024 6:26 AM EDT Hyperparathyroidism, unspecified Vitamin D deficiency, unspecified CPK (CREATINE KINASE) Routine 08/21/2024 6:26 AM EDT Coronary artery disease involving koyuk coronary artery of 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 ECG 12-LEAD Routine 07/24/2024 11:21 AM EDT Chest pain MICROALBUMIN/CREATINI NE RATIO, RANDOM URINE Routine 12/21/2023 6:44 AM EST Type 1 diabetes mellitus with other specified complication BI MAMMOGRAM SCREENING WITH TOMOSYNTHESIS WITH CAD (BILATERAL) Routine 09/23/2023 7:24 AM EDT Screening due PAP TEST Routine 01/02/2020 12:00 AM EST HEPATITIS C ANTIBODY, QUALITATIVE Routine 10/18/2018 7:22 AM EDT Routine general medical examination at [facility] from Last 3 Months or Most Recently Relevant to Health Maintenance Results * (ABNORMAL) POCT Glucose (10/13/2024 9:52 PM EDT) Only the most recent of35 resultswithin the time period is included. Glucose, POCT >500(HH) 70 - 110 mg/dL [facility] 10/13/2024 9:52 PM EDT 10/13/2024 9:54 PM EDT Vern Rivas MD POINT OF CARE TEST ORDERABLES Final Result [address] [address] * POCT Glucose (10/13/2024 8:39 PM EDT) Only the most recent of16 resultswithin the time period is included. Glucose >500 70 - 100 mg/dL 10/13/2024 8:39 PM EDT us Liseth Lester PA-C POINT OF CARE TEST ORDERABLE S Final Result * (ABNORMAL) Urinalysis w/reflex Urine Culture (10/13/2024 2:11 PM EDT) Only the most recent of3 resultswithin the time period is included. COLOR Yellow Yellow [facility] CLARITY Clear Clear [facility] GLUCOSE 3+(A) Negative [facility] Comment:(>=300 mg/dL) BILI Negative Negative [facility] KETONES Negative Negative [facility] SPECIFIC GRAVITY 1.022 1.001 - 1.035 [facility] BLOOD Negative Negative [facility] PH 7.0 5.0 - 9.0 [facility] Protein-UA Negative Negative [facility] UROBILINOGEN Negative Negative [facility] NITRITE Negative Negative [facility] Leukocyte esterase, ur Negative Negative [facility] Urine (Urine) 10/13/2024 2:1 1 PM EDT 10/13/2024 4:50 PM EDT us Cesilia Alejandro HEALTH SCIENCE INSTRUCTOR URINE ORDERABLES Final Resu lt [facility] [address] [place] [address] * (ABNORMAL) CBC and differential (10/13/2024 1:11 PM EDT) Only the most recent of2 resultswithin the time period is included. WBC 8.71 4.00 - 11.00 K/uL [facility] RBC 3.65(L) 4.00 - 5.20 M/uL [facility] HGB 11.8(L) 12.0 - 16.0 g/dL [facility] HCT 34.1(L) 36.0 - 46.0 % [facility] PLT 194 150 - 450 K/uL [facility] MCV 93.4 80.0 - 100.0 fL [facility] MCH 32.3(H) 27.0 - 31.0 pg [facility] MCHC 34.6 32.0 - 36.0 g/dL [facility] RDW 12.9 11.5 - 14.5 % [facility] MPV 10.0 8.4 - 12.0 fL [facility] NRBC 0.00 0.00 /100 WBCs [facility] ABSOLUTE NRBC 0.00 0.00 K/uL [facility] DIFF METHOD Auto [facility] NEUTS 62.2 48.0 - 76.0 % [facility] LYMPHS 28.5 18.0 - 41.0 % [facility] MONOS 4.7 4.0 - 11.0 % [facility] EOS 3.2 0.0 - 5.0 % [facility] BASOS 0.9 0.0 - 1.5 % [facility] % IMMATURE GRANS 0.5 0.0 - 0.9 % [facility] ABSOLUTE NEUTS 5.42 1.92 - 7.60 K/uL [facility] ABSOLUTE LYMPHS 2.48 0.72 - 4.10 K/uL [facility] ABSOLUTE MONOS 0.41 0.16 - 1.10 K/uL [facility] ABSOLUTE EOS 0.28 0.00 - 0.50 K/uL [facility] ABSOLUTE BASOS 0.08 0.00 - 0.15 K/uL [facility] ABS IMMATURE GRANS 0.04 0.00 - 0.09 K/uL [facility] Blood 10/13/2024 1:11 PM EDT 10/13/2024 1:36 PM EDT Cesilia Alejandro HEALTH SCIENCE INSTRUCTOR LAB BLOOD ORDERABLES Final Result [address] [address] * (ABNORMAL) Basic metabolic panel (10/13/2024 1:11 PM EDT) Only the most recent of5 resultswithin the time period is included. SODIUM 132(L) 135 - 145 mmol/L [facility] POTASSIUM 4.6 3.4 - 5.0 mmol/L [facility] CHLORIDE 97(L) 98 - 108 mmol/L [facility] CO2 26 23 - 32 mmol/L [facility] BUN 11 8 - 25 mg/dL [facility] CREATININE 0.88 0.50 - 1.00 mg/dL [facility] GLUCOSE 377(H) 70 - 110 mg/dL [facility] CALCIUM 8.2(L) 8.5 - 10.5 mg/dL [facility] EGFR 82 >59 mL/min/1. 73m2 [facility] Comment:Estimated glomerular filtration rate calculated using the CKD-EPI refit equation. ANION GAP 9 3 - 17 mmol/L [facility] Blood 10/13/2024 1:11 PM EDT 10/13/2024 1:36 PM EDT Cesilia Javon MONIQUE LAB BLOOD ORDERABLES Final Result Performing Organization Address City/[facility]/ZIP Co de Phone Number [address] [address] * Ketone bodies, serum (10/09/2024 10:13 AM EDT) Only the most recent of2 resultswithin the time period is included. BETA HYDROXYBUTYRATE <0.1 <0.4 mmol/L [facility] Blood 10/09/2024 10:1 3 AM EDT 10/09/2024 10:30 AM EDT Efraín Watts PA-C LAB BLOOD ORDERABLES Final Result Performing Organization Address [facility] Co de Phone Number [address] [address] * Toxicology screen, urine (10/08/2024 7:49 PM EDT) URINE AMPHETAMINES Negative Negative [facility] URINE BENZODIAZEPINE Negative Negative [facility] URINE COCAINE METAB Negative Negative [facility] URINE OPIATES Negative Negative [facility] Comment:This assay is not se nsitive for detection of oxycodone and oxymorphone. URINE OXYCODONE Negative Negative [facility] Fentanyl, urine Negative Negative [facility] URINE CREATININE 24 mg/dL [facility] Urine (Urine) 10/08/2024 7:4 9 PM EDT 10/08/2024 8:20 PM EDT Liseth Lester PA-C URINE ORDERABLES Final Resul t Performing Organization Address City/[facility] Co de Phone Number [address] [address] * HCG, urine (10/08/2024 7:49 PM EDT) URINE TEST Negative Negative [facility] Urine (Urine) 10/08/2024 7:4 9 PM EDT 10/08/2024 8:20 PM EDT Liseth Villaltara PA-C URINE ORDERABLES Final Resul t [facility] [address] [place] [address] * Ethanol, blood (10/08/2024 5:56 PM EDT) ETHANOL Negative Negative mg/dL [facility] Blood 10/08/2024 5:56 PM EDT 10/08/2024 6:09 PM EDT Liseth Lester PA-C LAB BLOOD ORDERABLES Final R esult Performing Organization Address [facility] Co de Phone Number [address] [address] * LFTs (hepatic panel) (10/08/2024 5:56 PM EDT) ALBUMIN 3.9 3.3 - 5.0 g/dL [facility] TOTAL BILIRUBIN 0.7 0.0 - 1.0 mg/dL [facility] DIRECT BILIRUBIN 0.3 0.0 - 0.3 mg/dL [facility] ALKALINE PHOSPHATASE 49 30 - 100 U/L [facility] AST 14 9 - 32 U/L [facility] ALT 12 7 - 33 U/L [facility] TOTAL PROTEIN 6.3 6.0 - 8.3 g/dL [facility] GLOBULIN 2.4 1.9 - 4.1 g/dL [facility] Blood 10/08/2024 5:56 PM EDT 10/08/2024 6:08 PM EDT Liseth Lester PA-C LAB BLOOD ORDERABLES Final R esult [address] [address] * 25-OH vitamin D (10/04/2024 4:30 PM EDT) Only the most recent of2 resultswithin the time period is included. 25 OH VIT D (TOTAL) 39 20 - 80 ng/mL [facility] Comment: REFERENCE RANGE: Optimal: 25-80 Suboptimal: 20-24 Deficient: <20 At risk for toxicity: >80 Blood 10/04/2024 4:30 PM EDT 10/04/2024 7:48 PM EDT us Manda Dorantes MD, MPH LAB BLOOD ORDERABLES Final Re sult [address] [phone] * TSH with reflex (10/04/2024 4:29 PM EDT) SCREENING PANEL: TSH 2.19 0.34 - 5.00 uIU/mL [facility] Blood 10/04/2024 4:29 PM EDT 10/04/2024 7:48 PM EDT us Jeremias Lawrence MD LAB BLOOD ORDERABLES Final Resul t Performing Organization Address [facility]/[place] [address], [facility] [phone] * T3, Total (10/04/2024 4:29 PM EDT) TOTAL T3 91 80 - 200 ng/dL [facility] Blood 10/04/2024 4:29 PM EDT 10/04/2024 7:48 PM EDT us Jeremias Lawrence MD LAB BLOOD ORDERABLES Final Resul t Performing Organization Address City/[facility]/[place] [address], [facility] [phone] * Free T4 (10/04/2024 4:29 PM EDT) FREE T4 1.2 0.9 - 1.9 ng/dL [facility] Blood 10/04/2024 4:29 PM EDT 10/04/2024 7:48 PM EDT us Jeremias Lawrence MD LAB [place]LOOD [place] [address], [facility] [phone] * (ABNORMAL) Parathyroid hormone (PTH) (08/21/2024 6:26 AM EDT) PARATHYROID HORMONE 72(H) 10 - 60 pg/mL [facility] 08/21/2024 6:26 AM EDT 08/21/2024 9:03 AM EDT Sammy Groves MD LAB BLOOD ORDERABLES Final Re sult Performing Organization Address [facility] Co de Phone Number [address] [address] * (ABNORMAL) Hemoglobin A1c (08/21/2024 6:26 AM EDT) HEMOGLOBIN A1C 7.0(H) 4.3 - 5.6 % [facility] Comment:HbA1c levels 5.7-6.4 % represent pre-diabetes, indicating impaired glucose control and an increased risk of developing diabetes compared with lower HbA1c levels. The diagnostic HbA1c level for diabetes is 6.5% or greater. CALC MEAN BLD GLUC 154 mg/dL [facility] Comment:There is no establis hed normal range for the Calculated Mean Blood Glucose (CMBG), however a HbA1c of 5.6% (upper limit of normal) represents a CMBG of 114 mg/dL. The diagnostic hemoglobin A1c level for diabetes is greater than or equal to 6.5% which represents a CMBG greater than or equal to 140 mg/dL. 08/21/2024 6:26 AM EDT 08/21/2024 9:03 AM EDT Sammy Groves MD LAB BLOOD ORDERABLES Final Re sult [address] [address] * CPK (creatine kinase) (08/21/2024 6:26 AM EDT) CREATINE KINASE 85 40 - 150 U/L [facility] 08/21/2024 6:26 AM EDT 08/21/2024 9:03 AM EDT us Tanvi Rodriguez MD, Tona LAB BLOOD ORDERABL ES Final Result Performing Organization Address [facility] Co de Phone Number [address] [address] * (ABNORMAL) Lipid panel (08/21/2024 6:26 AM EDT) HDL 83 35 - 100 mg/dL [facility] CHOLESTEROL 128 <200 mg/dL [facility] TRIGLYCERIDES 49 40 - 150 mg/dL [facility] LDL 35(L) 50 - 129 mg/dL [facility] CARDIAC RISK RATIO 1.5 0.0 - 5.0 [facility] NON-HDL CHOLESTEROL 45 mg/dL [facility] Comment:Guidelines suggest a non-HDL cholesterol goal 30 mg/dL higher than the patient-specific LDL goal. 08/21/2024 6:26 AM EDT 08/21/2024 9:03 AM EDT us Tanvi Rodriguez MD, Tona LAB BLOOD ORDERABL ES Final Result Performing Organization Address [facility] Co de Phone Number [address] [address] * ECG 12-LEAD (07/24/2024 11:21 AM EDT) Systolic Blood Pressure [facility] Diastolic Blood Pressure [facility] Ventricular Rate EKG/MIN 66 BPM [facility] Atrial Rate 66 BPM [facility] WY Interval 128 ms [facility] QRS Duration 78 ms [facility] QT Interval 420 ms [facility] QTC Interval 440 ms [facility] P [place] 44 degrees [facility] R Wave [place] -39 degrees [facility] T Wave [place] 32 degrees [facility] 07/24/2024 11:2 1 AM EDT 07/24/2024 11:38 AM EDT Narrative [facility] - 07/24/2024 11:38 AM EDT NORMAL SINUS RHYTHM LEFT AXIS DEVIATION LOW VOLTAGE QRS, CONSIDER PULMONARY DISEASE, PERICARDIAL EFFUSION, OR NORMAL VARIANT POOR R WAVE PROGRESSION, CANNOT RULE OUT SEPTAL INFARCTION WHEN COMPARED WITH ECG OF 03-Feb-2024 13:09, POOR R WAVE PROGRESSION NOTED Electronically Signed in Yunait system. Confirmed by Florentin RODRIGUEZ JACQUELINE ([id number]) on 07/24/2024 11:38:11 AM Tanvi Rodriguze MD, DrPH ECG ORDERABLES Fi nal Result [facility] * Microalbumin/creatinine ratio, random urine (12/21/2023 6:44 AM EST) URINE MICROALBUMIN 0.6 0.0 - 2.0 mg/dL [facility] URINE CREATININE 145 mg/dL [facility] MICROALB/CRE RATIO 4.1 <30.0 mg/g Cre [facility] Urine 12/21/2023 6:44 AM EST 12/21/2023 7:51 AM EST us Raoul Nogueria MD URINE ORDERABLES Final Result Performing Organization Address City/[facility]/ZIP Co de Phone Number [address] [address] * BI MAMMOGRAM SCREENING WITH TOMOSYNTHESIS WITH CAD (BILATERAL) (09/23/2023 7:24 AM EDT) Anatomical Region Laterality Modality Breast Left, Breast Right, Breast Bilateral Bila teral Mammography 09/23/2023 3:24 PM EDT Impressions 09/23/2023 3:26 PM EDT No mammographic evidence of malignancy in either breast. Annual screening mammography is recommended. BI-RADS 2 BENIGN The patient will be notified of the results and recommendations. Narrative 09/23/2023 3:26 PM EDT BI MAMMOGRAM SCREENING WITH TOMOSYNTHESIS WITH CAD (BILATERAL) Additional patient information: Screening. COMPARISON: Comparison is made with relevant prior imaging. Breast composition: The breast tissue is heterogeneously dense which may obscure small masses. FINDINGS: Previous needle biopsy in the right breast. No abnormal masses, suspicious calcifications, or other significant findings are identified mammographically in either breast. Procedure Note Rock Singer MD, PhD - 09/23/2023 BI MAMMOGRAM SCREENING WITH TOMOSYNTHESIS WITH CAD (BILATERAL) Additional patient information: Screening. COMPARISON: Comparison is made with relevant prior imaging. Breast composition: The breast tissue is heterogeneously dense which mayobscure small masses. FINDINGS: Previous needle biopsy in the right breast. No abnormal masses, suspicious calcifications, or other significantfindings are identified mammographically in either breast. IMPRESSION: No mammographic evidence of malignancy in either breast. Annual screening mammography is recommended. BI-RADS 2 BENIGN The patient will be notified of the results and recommendations. us Manda Dorantes MD, MPH IMG MG EXAMS Final Result * Pap Smear (01/02/2020 12:00 AM EST) 01/02/2020 01/03/2020 10: 00 AM EST Narrative SEE NARRATIVE - 01/24/2020 6:37 [place] [address] SHIFT SUPERVISOR RN Cytology Report Patient Name: KAMRAN ROWE : 1975 (Age: 44) Sex: F Institution: [facility] Location: [place] [address] Date of Collection: 01/02/2020 Date of Reported: 01/24/2020 06:37 Results to: Dipika Cantu MD FINAL DIAGNOSIS A. CERVICAL, LIQUID BASED SPECIMEN: SPECIMEN ADEQUACY: Satisfactory for evaluation. INTERPRETATION: NEGATIVE FOR INTRAEPITHELIAL LESION OR MALIGNANCY. ADDITIONAL INFORMATION: This specimen was prescreened using the [employer] Imaging System. Electronically Signed Out By: ELVIS Reyes (ASCP) PENELOPE Cervical cytology is a screening test primarily for squamous cancers and precursors and has associated false-negative and false-positive results. New technologies such as liquid-based preparations may decrease but will not eliminate all false-negative results. Regular sampling and follow-up of unexplained clinical signs and symptoms are recommended to minimize false negative results. PROCEDURES/ADDENDA HPV Testing (Requested) Ordered Date: 01/03/2020 A. CERVICAL, LIQUID BASED SPECIMEN: Human Papilloma Virus Test Negative for high-risk human papillomavirus types 16, 18, 45 and the Other high risk probe set (Includes 31, 33, 35, 39, 51, 52, 56, 58, 59, 66, 68) by [employer] HR-HPV analysis. Clinical correlation is advised. This HPV test was performed at [facility], [address] [place] [address]. This test has been FDA approved for [employer] cervical cytology specimens. The accuracy and precision of this test for all other specimen sources has been verified in the Cytopathology Laboratory of the [facility] and has not been cleared or approved by the U.S. Food and Drug Administration. Clinical correlation is advised. CLINICAL HISTORY Date of Last Menstrual Period: 12/18/2019 SPECIMEN SOURCE A: CERVICAL, LIQUID BASED SPECIMEN us Dipika Avila MD CYTOLOGY ORDERABLES Final Resul t Performing Organization Address City/[facility] Co de Phone Number SEE NARRATIVE * Hepatitis C antibody, qualitative (10/18/2018 7:22 AM EDT) HCV ANTIBODY Negative Negative [facility] Comment:Antibodies to HCV no t detected. Does not exclude the possibility of exposure to HCV. 10/18/2018 7:22 AM EDT 10/18/2018 8:43 AM EDT Manda Dorantes MD, MPH LAB BLOOD ORDERABLES Final Re sult Performing Organization Address City/[facility] Co de Phone Number [address] [address] from Last 3 Months or Most Recently Relevant to Health Maintenance Insurance #2 [place] [address] [facility] [employer] FAMILY EMPLOYEES FAMILY EMPLOYEES FAMILY EMPLOYEES FAMILY EMPLOYEES [place] [place] [address] EMPLOYEES FAMILY EMPLOYEES FAMILY EMPLOYEES FAMILY EMPLOYEES FAMILY [facility] [employer] FAMILY [facility] [employer] FAMILY Advance Directives For more information, please contact: [phone] (9AM - 5PM 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 12/28/2023 7:14 PM Advance Directive - Non Epic LMR 01/15/2010 12:00 AM * Full Code (Latest Code Status on File) Date Activated Date Inactivated Comments 01/04/2024 4:16 PM Question Answer Comments Code Status Confirmed With: Other (specify below ) Code Discussion Comments: presumed iso recent SA and psychiatric illness * Full Code Date Activated Date Inactivated Comments 12/28/2023 3:49 PM 01/04/2024 4:16 PM Question Answer Comments Code Status Confirmed With: Patient Code Status Communicated To: Inpatient Attending * Full Code Date Activated Date Inactivated Comments 12/25/2023 5:34 PM 12/28/2023 3:49 PM Question Answer Comments Code Status Confirmed With: Family Code Status Communicated To: Inpatient Attending Care Teams Flower Cutter Relationship Specialty Start Date End Date Manda Dorantes MD, MPH [address] [place] [address] [email or web address] PCP - General Internal Medicine 01/01/17 Additional Source Comments The information contained in this document represents components of the legal health record. It is not the complete legal health record.[facility]
--- OUTSIDE RECORDS SUMMARY | 2024-10-14 01:23 | XMS_ITS | Encounter Summary ---
Author Organization [facility] Address [address] [place] [address] Phone Care Team Providers Care Telephone Mechanic Name Role Phone Manda Dorantes MD, MPH Primary Care Provider [phone] Manda Dorantes MD, MPH Unavailable [phone] Raoul Nogueira MD Unavailable [phone] Raoul Nogueira MD Unavailable [phone] Raoul Nogueira MD Unavailable [phone] Encounter Details Date Type Department Care Team (Late st Contact Info) Description 05/07/2020 Ancillary Orders [facility] [address] [facility], [address] [place] [address] Manda Dorantes MD, MPH [address] [place] [address] [email or web address] Screening breast examination Social History Tobacco Use Types Packs/Day Years [...] high school, GED, job training, learning the Bahamian language, technical skills, or developing parenting skills)? [...] Info) Description 10/23/2024 8:00 AM EDT Appointment [facility] Nuclear Medicine [address] [place] [address] Tanvi English MD, DrPH [address] [place] [address] [email or web address] 10/24/2024 2:30 PM EDT Telemedicine [facility] [address] [facility] [facility], [address] [place] [address] Jeremias Lawrence MD [address] [place] [address] [email or web address] 11/07/2024 9:00 AM EDT Telemedicine [address], [address] [place] [address] Jeremias Lawrence MD [address] [facility] [address] [place] [address] [email or web address] 12/13/2024 8:30 AM EDT Telemedicine [facility] Weight Center [address] [place] [address] Sammy Groves MD [address] [facility], 4th Floor [address] [place] [address] [email or web address] 01/08/2025 12:35 PM EST Office Visit [facility] Diabetes Center [address] [place] [address] Timbo Calle MD [address] [facility] [address] [place] [address] [email or web address] documented as of this encounter Results * BI MAMMOGRAM SCREENING WITH TOMOSYNTHESIS WITH CAD (BILATERAL) (05/14/2020 7:40 AM EDT) Anatomical Region Laterality Modality Breast Left, Breast Right, Breast Bilateral Bila teral Mammography Impressions 05/14/2020 3:47 PM EDT Focal asymmetry in the right breast requires additional evaluation. Recommend additional mammographic views and ultrasound if warranted. BI-RADS Category 0: Need Additional Imaging Evaluation This report has been forwarded to an automated communication system which will electronically notify appropriate providers of potentially important findings. The Breast Imaging Division will contact the patient directly to schedule the diagnostic examination. Patient's information is entered into a reminder system with a target due date for the next mammogram. Narrative 05/14/2020 3:47 PM EDT INDICATION FOR EXAM: Screening. PROCEDURE: The following standard mammographic and tomosynthesis views were obtained: craniocaudal and mediolateral oblique. Computer-aided detection was utilized by the radiologist in the interpretation of this examination. BILATERAL MAMMOGRAM: The present study is compared to previous imaging. There are scattered fibroglandular densities. There is a focal asymmetry in the lower inner quadrant of the right breast. No suspicious masses, calcifications or other abnormalities are seen in the left breast. Procedure Note David Altamirano MD - 05/14/2020 INDICATION FOR EXAM: Screening. PROCEDURE: The following standard mammographic and tomosynthesis views were obtained:craniocaudal and mediolateral oblique. Computer-aided detection wasutilized by the radiologist in the interpretation of this examination. BILATERAL MAMMOGRAM: The present study is compared to previous imaging. There are scattered fibroglandular densities. There is a focal asymmetry in the lower inner quadrant of the rightbreast. No suspicious masses, calcifications or other abnormalities are seen inthe left breast. IMPRESSION: Focal asymmetry in the right breast requires additional evaluation.Recommend additional mammographic views and ultrasound if warranted. BI-RADS Category 0: Need Additional Imaging Evaluation This report has been forwarded to an automated communication system whichwill electronically notify appropriate providers of potentially importantfindings. The Breast Imaging Division will contact the patient directly toschedule the diagnostic examination. Patient's information is entered into a reminder system with a target duedate for the next mammogram. Manda Dorantes MD, MPH [facility] MG [facility] Final Result documented in this encounter Visit Diagnoses Diagnosis Screening breast examination Other screening breast examination Screening breast examination Other screening breast examination documented in this encounter Additional Health Concerns [...] documented as of this encounter Care Teams Telephone Mechanic Relationship Specialty Start Date End Date Manda Dorantes MD, MPH [address] [place] [address] [email or web address] PCP - General Internal Medicine 01/01/17 Manda Dorantes MD, MPH [address] [place] [address] [email or web address] Partners Attributed Provider 03/13/17 06/24/23 Raoul Nogueira MD [address] [place] [address] [email or web address] Insurance Assigned Provider 11/23/20 12/21/20 Raoul Nogueira MD [address] [place] [address] [email or web address] Insurance Assigned Provider 01/31/21 04/25/22 Raoul Nogueira MD [address] [place] [address] [email or web address] Insurance Assigned Provider 05/23/22 06/20/22 documented as of this encounter Additional Source Comments The information contained in this document represents components of the legal health record. It is not the complete legal health record.[facility]
--- OUTSIDE RECORDS SUMMARY | 2024-10-14 01:23 | XMS_ITS | Encounter Summary ---
Author Organization [facility] Address [address] [place] [address] Phone Care Team Providers Care Recovery Room Rn Name Role Phone Manda Dorantes MD, MPH Primary Care Provider [phone] Reason for Visit * Reason Onset Date Comments Medication Refill 12/21/2023 Encounter Details Date Type Department Care Team (Late st Contact Info) Description 12/21/2023 Telephone [facility] [address] [facility], [address] [place] [address] Jeremias Lawrence MD [address] [place] [address] [email or web address] Medication Refill Social History Tobacco Use Types [...] high school, GED, job training, learning the Mauritanian language, technical skills, or developing parenting skills)? [...] your housing situation today? I have kenya sing 08/31/2023 How many times have you move [...] Info) Description 10/23/2024 8:00 AM EDT Appointment [facility] Nuclear Medicine [address] [place] [address] Tanvi English MD, DrPH [address] [address] [email or web address] 10/24/2024 2:30 PM EDT Telemedicine [address], [address] [place] [address] Jeremias Lawrence MD 55 [facility] 8 [place] [address] [email or web address] 11/07/2024 9:00 AM EDT Telemedicine [facility] [address], [address] [place] [address] Jeremias Lawrence MD 55 [facility] 8 [place] [address] [email or web address] 12/13/2024 8:30 AM EDT Telemedicine [facility] Weight Center [address] [facility] [address] [place] [address] Sammy Groves MD [address] [facility], 4th Floor [address] [place] [address] [email or web address] 01/08/2025 12:35 PM EST Office Visit [facility] Diabetes Center [address] [facility] [address] [place] [address] Timbo Calle MD [address] [place] [address] [address] [place] [address] [email or web address] documented as of this encounter Visit Diagnoses Not on filedocumented in this encounter Additional Health Concerns Assessment Noted Time PHQ-9 Depression Total Score: 0 08/27/19 23 7:30 AM EDT PHQ-2 Depression Total Score: 0 08/31/19 24 10:24 AM EDT documented as of this encounter Care Teams Recovery Room Rn Relationship Specialty Start Date End Date Manda Dorantes MD, MPH [address] [place] [id number] [email or web address] PCP - General Internal Medicine 01/01/17 documented as of this encounter Additional Source Comments The information contained in this document represents components of the legal health record. It is not the complete legal health record.[facility]
--- OUTSIDE RECORDS SUMMARY | 2024-10-14 01:23 | XMS_ITS | Encounter Summary ---
Author Organization [facility] Address [address] [place] [address] Phone Care Team Providers Care Fruit Coordinator Name Role Phone Manda Dorantes MD, MPH Primary Care Provider [phone] Manda Dorantes MD, MPH Unavailable [phone] Raoul Nogueira MD Unavailable [phone] Raoul Nogueira MD Unavailable [phone] Raoul Nogueira MD Unavailable [phone] Encounter Details Date Type Department Care Team (Late st Contact Info) Description 05/07/2020 Procedure Pass [facility] Breast Evaluation Center [address] [facility] [address] [place] [address] Social History Tobacco Use Types Packs/Day Years [...] high school, GED, job training, learning the Emirati language, technical skills, or developing parenting skills)? [...] Info) Description 10/23/2024 8:00 AM EDT Appointment [facility] Nuclear Medicine [address] [place] [address] Tanvi English MD, DrPH [address] [place] [address] [email or web address] 10/24/2024 2:30 PM EDT Telemedicine [address], [address] [address] Jeremias Lawrence MD [address] [place] [address] [email or web address] 11/07/2024 9:00 AM EDT Telemedicine [address], [address] [place] [address] Jeremias Lawrence MD [address] [place] [address] 8 [place] [address] [email or web address] 12/13/2024 8:30 AM EDT Telemedicine [facility] Weight Center [address] [facility] [address] [place] [address] Sammy Groves MD 50 [facility], 4th Floor [address] [place] [address] [email or web address] 01/08/2025 12:35 PM EST Office Visit [facility] Diabetes [facility] [address] [facility] [address] [place] [address] Timbo Calle MD [address] [place] [address] [address] [place] [address] [email or web address] [email or web address] documented as of this encounter Visit Diagnoses [...] documented as of this encounter Care Teams Fruit Coordinator Relationship Specialty Start Date End Date Manda Dorantes MD, MPH [address] [place] [phone] [email or web address] PCP - General Internal Medicine 01/01/17 Manda Dorantes MD, MPH [address] [place] [id number] [email or web address] Partners Attributed Provider 03/13/17 06/24/23 Raoul Nogueira MD 50 [place] [address] Insurance Assigned Provider 11/23/20 12/21/20 Raoul Nogueira MD 50 [place] [address] Insurance Assigned Provider 01/31/21 04/25/22 Raoul Nogueira MD 50 [place] [address] Insurance Assigned Provider 05/23/22 06/20/22 documented as of this encounter Additional Source Comments The information contained in this document represents components of the legal health record. It is not the complete legal health record.[facility]
--- OUTSIDE RECORDS SUMMARY | 2024-10-14 01:23 | XMS_ITS | Encounter Summary ---
Author Organization [facility] Address [address] [place] [address] Phone Care Team Providers Care Spring Forger Name Role Phone Manda Dorantes MD, MPH Primary Care Provider [phone] Manda Dorantes MD, MPH Unavailable [phone] Raoul Nogueira MD Unavailable [phone] Raoul Nogueira MD Unavailable [phone] Raoul Nogueira MD Unavailable [phone] Encounter Details Date Type Department Care Team (Late st Contact Info) Description 05/15/2020 Procedure Pass [facility] Breast Evaluation Center [address] [facility] [address] [place] [address] Social History Tobacco Use Types Packs/Day Years [...] high school, GED, job training, learning the Rwandan language, technical skills, or developing parenting skills)? [...] Info) Description 10/23/2024 8:00 AM EDT Appointment [facility] Nuclear Medicine [address] [place] [address] Tanvi English MD, DrPH [address] [place] [address] [email or web address] 10/24/2024 2:30 PM EDT Telemedicine [address], [address] [address] Jeremias Lawrence MD [address] [place] [address] [email or web address] 11/07/2024 9:00 AM EDT Telemedicine [address], [address] [place] [address] Jeremias Lawrence MD [address] [place] [address] 8 [place] [address] [email or web address] 12/13/2024 8:30 AM EDT Telemedicine [facility] Weight Center [address] [facility] [address] [place] [address] Sammy Groves MD 50 [facility], 4th Floor [address] [place] [address] [email or web address] 01/08/2025 12:35 PM EST Office Visit [facility] Diabetes Center [address] [facility] [address] [place] [address] Timbo Calle MD [address] [place] [address] [address] [place] [address] [email or web address].[email or web address] [facility] documented as of this encounter Visit [...] documented as of this encounter Care Teams Spring Forger Relationship Specialty Start Date End Date Manda Dorantes MD, MPH [address] [place] [address] [email or web address] PCP - General Internal Medicine 01/01/17 Manda Dorantes MD, MPH [address] [place] [address] [email or web address] Partners Attributed Provider 03/13/17 06/24/23 Raoul Nogueira MD 50 [place] [address] [email or web address] Insurance Assigned Provider 11/23/20 12/21/20 Raoul Nogueira MD 50 [place] [address] [email or web address] Insurance Assigned Provider 01/31/21 04/25/22 Raoul Nogueira MD 50 [place] [address] [email or web address] Insurance Assigned Provider 05/23/22 06/20/22 documented as of this encounter Additional Source Comments The information contained in this document represents components of the legal health record. It is not the complete legal health record.[facility]
--- OUTSIDE RECORDS SUMMARY | 2024-10-14 01:23 | XMS_ITS | Encounter Summary ---
Author Organization [facility] Address [address] [place] [address] Phone Care Team Providers Care Behavioral Interventionist Name Role Phone Manda Dorantes MD, MPH Primary Care Provider [phone] Manda Dorantes MD, MPH Unavailable [phone] Raoul Nogueira MD Unavailable [phone] Raoul Nogueira MD Unavailable [phone] Raoul Nogueira MD Unavailable [phone] Reason for Referral * - Closed Specialty Diagnoses / Procedures Referred By Contdiego t Referred To Contact Radiology Diagnoses Abnormal mammogram Procedures US Breast (Right) Manda Dorantes MD, MPH Phone: tel: fax: mailto:[email or web address] Referral ID Status Reason Start Date Expiration Date Visits Re quested Visits Authorized [id number] Closed 05/15/2020 05/15/2021 1 1 Encounter Details Date Type Department Care Team ([facility] st Contact Info) Description 05/15/2020 Ancillary Orders [facility] [address], [address] [place] [address] Manda Dorantes MD, MPH [address] [place] [address] [email or web address] Abnormal mammogram Social History Tobacco Use Types Packs/Day Years [...] high school, GED, job training, learning the Venezuelan language, technical skills, or developing parenting skills)? [...] Info) Description 10/23/2024 8:00 AM EDT Appointment [facility] Nuclear Medicine [address] [place] [address] Tanvi English MD, DrPH [address] [place] [address] [email or web address] 10/24/2024 2:30 PM EDT Telemedicine [facility] [address], [address] [place] [address] Jeremias Lawrence MD [address] [place] [address] 8 [place] [address] [email or web address] 11/07/2024 9:00 AM EDT Telemedicine [facility] [address], [address] [place] [address] Jeremias Lawrence MD [address] [place] [address] [email or web address] 12/13/2024 8:30 AM EDT Telemedicine [facility] Weight Center [address] [place] [address] Sammy Groves MD [address] [facility], 4th [address] [place] [address] [email or web address] 01/08/2025 12:35 PM EST Office Visit [facility] Diabetes Center [address] [place] [address] Timbo Calle MD [address] [facility] [address] [place] [address] [email or web address] documented as of this encounter Results * BI US BREAST LIMITED (RIGHT) (05/23/2020 9:48 AM EDT) Anatomical Region Laterality Modality Breast Right, Breast Bilateral Right U ltrasound Impressions 05/23/2020 10:18 AM EDT 1.8 cm superficial parallel mass in the right breast is probably benign. Follow-up diagnostic mammogram and right breast ultrasound in 6 months is recommended. BI-RADS Category 3: Probably Benign Finding This report has been forwarded to an automated communication system which will electronically notify appropriate providers of potentially important findings. The Breast Imaging Division will contact the patient directly to schedule the diagnostic examination. Narrative 05/23/2020 10:18 AM EDT HISTORY: 45 year old female seen for callback from screening mammography. PROCEDURE: Diagnostic mammographic and tomosynthesis views were obtained. RIGHT BREAST MAMMOGRAM: The present study is compared to previous imaging. There are scattered fibroglandular densities. Additional evaluation was performed for the focal asymmetry in the right breast, lower inner quadrant seen on 05/14/2020. On the present examination, there is a persistent focal asymmetry in the right breast at 5 o'clock. BREAST ULTRASOUND A focused ultrasound was performed of the right breast at 5 o'clock located 5 centimeters from the nipple. Ultrasound demonstrates an oval parallel heterogeneous superficial mass likely containing fat, fibroglandular tissue, and an adjacent 5 mm anechoic cyst in the right breast at 5 o'clock located 5 centimeters from the nipple. It measures 1.8 x 1.5 x 0.6 cm. This findings is consistent with a probably benign process, likely a benign hamartoma. Procedure Note David Altamirano MD - 05/23/2020 HISTORY: 45 year old female seen for callback from screening mammography. PROCEDURE: Diagnostic mammographic and tomosynthesis views were obtained. RIGHT BREAST MAMMOGRAM: The present study is compared to previous imaging. There are scattered fibroglandular densities. Additional evaluation was performed for the focal asymmetry in the rightbreast, lower inner quadrant seen on 05/14/2020. On the presentexamination, there is a persistent focal asymmetry in the right breast at5 o'clock. BREAST ULTRASOUND A focused ultrasound was performed of the right breast at 5 o'clocklocated 5 centimeters from the nipple. Ultrasound demonstrates an ovalparallel heterogeneous superficial mass likely containing fat,fibroglandular tissue, and an adjacent 5 mm anechoic cyst in the rightbreast at 5 o'clock located 5 centimeters from the nipple. It measures 1.8x 1.5 x 0.6 cm. This findings is consistent with a probably benignprocess, likely a benign hamartoma. IMPRESSION: 1.8 cm superficial parallel mass in the right breast is probably benign. Follow-up diagnostic mammogram and right breast ultrasound in 6months is recommended. BI-RADS Category 3: Probably Benign Finding This report has been forwarded to an automated communication system whichwill electronically notify appropriate providers of potentially importantfindings. The Breast Imaging Division will contact the patient directly toschedule the diagnostic examination. us Manda Dorantes MD, MPH IMG US BREAST Final Result * BI MAMMOGRAM DIAGNOSTIC WITH TOMOSYNTHESIS NO CAD (RIGHT) (05/23/2020 9:26 AM EDT) Anatomical Region Laterality Modality Breast Right, Breast Bilateral Right M ammography Impressions 05/23/2020 10:18 AM EDT 1.8 cm superficial parallel mass in the right breast is probably benign. Follow-up diagnostic mammogram and right breast ultrasound in 6 months is recommended. BI-RADS Category 3: Probably Benign Finding This report has been forwarded to an automated communication system which will electronically notify appropriate providers of potentially important findings. The Breast Imaging Division will contact the patient directly to schedule the diagnostic examination. Narrative 05/23/2020 10:18 AM EDT HISTORY: 45 year old female seen for callback from screening mammography. PROCEDURE: Diagnostic mammographic and tomosynthesis views were obtained. RIGHT BREAST MAMMOGRAM: The present study is compared to previous imaging. There are scattered fibroglandular densities. Additional evaluation was performed for the focal asymmetry in the right breast, lower inner quadrant seen on 05/14/2020. On the present examination, there is a persistent focal asymmetry in the right breast at 5 o'clock. BREAST ULTRASOUND A focused ultrasound was performed of the right breast at 5 o'clock located 5 centimeters from the nipple. Ultrasound demonstrates an oval parallel heterogeneous superficial mass likely containing fat, fibroglandular tissue, and an adjacent 5 mm anechoic cyst in the right breast at 5 o'clock located 5 centimeters from the nipple. It measures 1.8 x 1.5 x 0.6 cm. This findings is consistent with a probably benign process, likely a benign hamartoma. Procedure Note David Altamirano MD - 05/23/2020 HISTORY: 45 year old female seen for callback from screening mammography. PROCEDURE: Diagnostic mammographic and tomosynthesis views were obtained. RIGHT BREAST MAMMOGRAM: The present study is compared to previous imaging. There are scattered fibroglandular densities. Additional evaluation was performed for the focal asymmetry in the rightbreast, lower inner quadrant seen on 05/14/2020. On the presentexamination, there is a persistent focal asymmetry in the right breast at5 o'clock. BREAST ULTRASOUND A focused ultrasound was performed of the right breast at 5 o'clocklocated 5 centimeters from the nipple. Ultrasound demonstrates an ovalparallel heterogeneous superficial mass likely containing fat,fibroglandular tissue, and an adjacent 5 mm anechoic cyst in the rightbreast at 5 o'clock located 5 centimeters from the nipple. It measures 1.8x 1.5 x 0.6 cm. This findings is consistent with a probably benignprocess, likely a benign hamartoma. IMPRESSION: 1.8 cm superficial parallel mass in the right breast is probably benign. Follow-up diagnostic mammogram and right breast ultrasound in 6months is recommended. BI-RADS Category 3: Probably Benign Finding This report has been forwarded to an automated communication system whichwill electronically notify appropriate providers of potentially importantfindings. The Breast Imaging Division will contact the patient directly toschedule the diagnostic examination. us Manda Dorantes MD, MPH IM MG EXAMS Final Result documented in this encounter Visit Diagnoses Diagnosis Abnormal mammogram Abnormal mammogram, unspecified Abnormal mammogram Abnormal mammogram, unspecified Abnormal mammogram Abnormal mammogram, unspecified documented in this encounter Additional Health [...] documented as of this encounter Care Teams Behavioral Interventionist Relationship Specialty Start Date End Date Manda Dorantes MD, MPH [address] [place] [address] [email or web address] PCP - General Internal Medicine 01/01/17 Manda Dorantes MD, MPH [address] [place] [address] [email or web address] Partners Attributed Provider 03/13/17 06/24/23 Raoul Nogueira MD [address] [place] [address] [email or web address] Insurance Assigned Provider 11/23/20 12/21/20 Raoul Nogueira MD [address] [place] [address] [email or web address] Insurance Assigned Provider 01/31/21 04/25/22 Raoul Nogueira MD 50 [place] [address] [email or web address] Insurance Assigned Provider 05/23/22 06/20/22 documented as of this encounter Additional Source Comments The information contained in this document represents components of the legal health record. It is not the complete legal health record.[facility]
--- OUTSIDE RECORDS SUMMARY | 2024-10-14 01:23 | XMS_ITS | Encounter Summary ---
Author Organization [facility] Address [address] [place] [address] Phone Care Team Providers Care Brush Material Preparer Name Role Phone Manda Dorantes MD, MPH Primary Care Provider [phone] Manda Dorantes MD, MPH Unavailable [phone] Raoul Nogueira MD Unavailable [phone] Raoul Nogueira MD Unavailable [phone] Raoul Nogueira MD Unavailable [phone] Encounter Details Date Type Department Care Team (Late st Contact Info) Description 05/15/2020 Procedure Pass [facility] [address] [place] [address] Social History Tobacco Use Types Packs/Day Years [...] high school, GED, job training, learning the Iraqi language, technical skills, or developing parenting skills)? [...] Description 10/23/2024 8:00 AM EDT Appointment [facility] Nuclear Medicine [address] [place] [address] Tanvi English MD, DrPH [address] [place] [id number] [email or web address] 10/24/2024 2:30 PM EDT Telemedicine [address], [address] [address] Jeremias Lawrence MD [address] [place] [address] [email or web address] 11/07/2024 9:00 AM EDT Telemedicine [address], [address] [place] [address] Jeremias Lawrence MD [address] [place] [address] 8 [place] [address] [email or web address] 12/13/2024 8:30 AM EDT Telemedicine [facility] Weight Center [address] [facility] [address] [facility] [address] [place] [address] Sammy Groves MD [address] [facility], 4th [address] [place] [address] [email or web address] 01/08/2025 12:35 PM EST Office Visit [facility] Diabetes Center [address] [facility] [address] [place] [address] Timbo Calle MD [address] [place] [address] [address] [place] [address] [email or web address] documented as of this encounter Visit [...] documented as of this encounter Care Teams Brush Material Preparer Relationship Specialty Start Date End Date Manda Dorantes MD, MPH [address] [place] [phone] [email or web address] PCP - General Internal Medicine 01/01/17 Manda Dorantes MD, MPH [address] [place] [phone] [email or web address] Partners Attributed Provider 03/13/17 06/24/23 Raoul Nogueira MD 50 [place] [address] [email or web address] Insurance Assigned Provider 11/23/20 12/21/20 Raoul Nogueira MD 50 [place] [address] [email or web address] Insurance Assigned Provider 01/31/21 04/25/22 Raoul Nogueira MD [address] [place] [address] [email or web address] Insurance Assigned Provider 05/23/22 06/20/22 documented as of this encounter Additional Source Comments The information contained in this document represents components of the legal health record. It is not the complete legal health record.[facility]
[2024-10-14 01:52] VITALS: BMI 25.1
[2024-10-14 03:26] LABS: Glucose, Whole Blood 346 mg/dL (60-115)
--- NOTE | 2024-10-14 04:03 | PC.ADMIT ---
Ramses was admitted from [facility] on a CV for the treatment of MARTELL, and MDD with suicidal ideation. she has a past medical history of Diabetes Type 1, and a STEMI in 2018, and Hashimotos disease. She signed a three day notice upon arrival which should on 10/19. she endorses depression and anxiety with suicidal ideation in the context of believing her medications are no longer working to manage her depression. she did not give any specific reason for her increased depression and sighted concerns from her distant past. several times during the interview the patient said that she was interested in ECT stating that she had had it before and found it helpful. Ramses is slow to respond and appears to be responding to internal stimuli however she denies AVH. she informed this technical document writer that she is on Prozac and has taken Celexa in the past but didn't like the was it made her not feel well. all consents completed except the consent for the pharmacy. oriented to the unit
[2024-10-14 07:51] LABS: Glucose, Whole Blood 392 mg/dL (60-115)
--- NOTE | 2024-10-14 07:59 | HO.HSGERICON ---
History of Present Illness Data of Consult Service Date: 10/14/24 Requesting physician: Cony Bartlett Primary Care Provider: Unknown Physician HPI Reason for consult: New Patient This is a 49-year-old female history of type 1 diabetes, anxiety, depression, ?thyroid issues ?who presented to us [place] [facility] for suicidal ideation. Reports she wanted to overdose with insulin. For this reason on transport her insulin pump was removed. This morning she was feeling slightly lightheaded a point of care was obtained which was 392. She tells me she has been having increased depression due to her grandparents passing away. Denies homicidal ideation. Denies visual, tactile and auditory hallucinations. No medical complaints. Review of Systems Review of Systems: Constitutional : No Weight loss, No Fever, No Chills, No Fatigue, No Malaise ENT/Mouth : No sore throat, No Rhinorrhea Eyes: No Eye Pain, No Swelling, No Redness Cardiovascular : No Chest Pain, No SOB, No Dyspnea on Exertion, No Orthopnea, No Edema, No Palpitations Respiratory : No Cough, No Sputum, No Wheezing Gastrointestinal : No Nausea, No Vomiting, No Diarrhea, No Constipation, No abdominal Pain, No Hematochezia, No Melena Genitourinary : No Dysuria, No Urinary Frequency, No Hematuria, Musculoskeletal : No joint pain, No Myalgias, No Joint Swelling Skin : No Skin Lesions, No rash Neuro : No Weakness, No Numbness, No Dizziness, No Headache Psych : No Anxiety/Panic, No Depression Heme/Lymph: No Bruising, No Bleeding,No Lymphadenopathy Endocrine : No Polyuria, No Polydipsia All other systems reviewed and are negative Yes all other systems are reviewed and are negative [facility] Social History Household Members: Spouse Housing: Apartment Do you presently have visiting nurse or other home services: No Patient Tobacco Use Status: Former Tobacco user Tobacco use type: Cigarette Second Hand Smoke Exposure: Yes Currently Displaying Signs/Symptoms of Drug Intoxication Withdrawal: No Have you been hit, kicked, punched, or otherwise hurt by someone within the past year? If so, by whom?: No Do you feel safe in your current relationship?: Yes Is there a partner from a previous relationship who is making you feel unsafe now?: No Are you made to feel afraid or neglected: No Advance Directives: No Advance Directives Information Provided: Yes Advance Directives on File: No Do you have thoughts of harming others: None Do you have a plan to hurt others: No Plan Recently lost weight without trying: No Nutrition Risks: No Nutritional Risk Patient : No : No Poor oral hygiene: No Meds Allergies Allergy/AdvReac Type Severity Reaction Status Date / Time Penicillins AdvReac Rash Verified 10/14/24 02:15 Sulfa (Sulfonamide AdvReac Rash Verified 10/14/24 02:15 Antibiotics) Active Medications: Current Medications Acetaminophen (Acetaminophen 325 Mg Tablet) 650 mg PO Q6H PRN PRN Reason: Headache/Pain, Scale 1-10 Al Hydroxide/Mg Hydroxide (Magnesium Hydrox/Alum Hydrox 30 Ml Oral.Susp) 30 ml PO Q6H PRN PRN Reason: Heartburn/Nausea Hydroxyzine HCl (Hydroxyzine Hcl 25 Mg Tablet) 25 mg PO Q6H PRN PRN Reason: mild anxiety Last Admin: 10/14/24 03:41 Dose: 25 mg Magnesium Hydroxide (Milk Of Magnesia 30 Ml Oral.Susp) 30 ml PO DAILY PRN PRN Reason: Constipation Nicotine Polacrilex (Nicotine Polacrilex 2 Mg Gum) 4 mg BUCCAL Q2H PRN PRN Reason: Nicotine Cravings Trazodone HCl (Trazodone Hcl 50 Mg Tablet) 50 mg PO BEDTIME MRX1 PRN PRN Reason: Insomnia Last Admin: 10/14/24 03:41 Dose: 50 mg Home Medications ?Medication ?Instructions ?Recorded ?Confirmed ?Last Taken ?Type evolocumab 140 mg/mL subcutaneous 140 mg subcut Q2W 10/14/24 10/14/24 Unknown History syringe (Repatha Syringe) fluoxetine 20 mg capsule 20 mg PO DAILY 10/14/24 10/14/24 Unknown History fluoxetine 40 mg capsule 40 mg PO DAILY 10/14/24 10/14/24 Unknown History levothyroxine 150 mcg tablet 150 mcg PO QAM 10/14/24 10/14/24 Unknown History lorazepam 0.5 mg tablet 0.5 mg PO DAILY PRN anxiety 10/14/24 10/14/24 Unknown History semaglutide (weight loss) 1 mg/0.5 mg subcut 10/14/24 Unknown History mL subcutaneous pen injector (Wegovy) trazodone 50 mg tablet 50 mg PO BEDTIME insomnia 10/14/24 10/14/24 Unknown History Results Labs 10/14/24 12:38 10/14/24 12:38 Labs: Laboratory Results - last 24 hr 10/14/24 10/14/24 02:08 07:43 POC Glucose 346 H 392 H* Assessment and Plan (1) Suicidal ideation: Status: Acute (2) Anxiety: Status: Acute (3) Depression: Status: Acute (4) Type 1 diabetes: Status: Acute Plan Please refer to psychiatry note for plan. Hospitalist can be consulted if needed at any point. Labs were ordered by Psychiatry and are pending. They will follow and let us know if they need anything. Patient's sugars are noted to be elevated she is getting 10 units of glargine daily as well as on a insulin sliding scale. She is a type 1 diabetic. Will closely monitor sugars. Laboratory studies with no signs of acute DKA. Normal beta hydroxybutyrate. Normal VBG without acidosis. Patient's blood glucose level slowly down trending. Total time managing care of this patient today: 15 minutes. Physical Exam Vital Signs: BMI result Body Mass Index 25.1 Appearance: Alert.? Oriented X3.? No acute distress.?+ patient w/ delayed responses and flat affect Head: Normocephalic, atraumatic, no step-offs or deformities Eyes: Pupils equal, round and reactive to light.? Neck: Normal inspection.? Neck supple.? CVS: Normal heart rate and rhythm.? Pulses normal.? Respiratory: No respiratory distress.? Breath sounds normal.? Abdomen: Soft and nontender.? Skin: Skin warm and dry.? Normal skin color.? Normal skin turgor.? Extremities: No lower extremity edema.? No calf ttp. 5/5 strength to bilateral upper and lower extremities Back: No midline tenderness, no C-spine tenderness, full range of motion, no CVA tenderness bilaterally Neuro: Oriented X 3.? No motor deficit.? No sensory deficit. CN 2-12 intact Neuro Cranial nerves: Yes CN's II-XII intact bilaterally
[2024-10-14 08:00] VITALS: BP 113/60; PULSE 75; RESP 18; TEMP 36.6; O2SAT 95
[2024-10-14] MEDS: Insulin Glargine,Hum.rec.anlog 100 UNIT/ML 10 ML VIAL 10 UNIT SUBCUT (10:55)
[2024-10-14 11:07] LABS: Glucose, Whole Blood 556 mg/dL (60-115)
[2024-10-14 12:22] LABS: Glucose, Whole Blood 420 mg/dL (60-115)
[2024-10-14 12:46] LABS: MANUAL DIFF FLAG NO
[2024-10-14 12:53] LABS: Venous Blood Gas Refer to POC result
[2024-10-14 12:53] LABS: VBG HCO3 28 mmol/L (22-26); VBG O2 % Saturation 87.0 %
[2024-10-14 13:00] LABS: Hematocrit 36.7 % (37.0-47.0); Hemoglobin 12.8 g/dl (12.0-16.0); Imm Gran Abs Auto 0.05 X10*3/uL (0.00-0.03); Imm Gran Pct Auto 0.4 % (0.0-0.4); Lymphocytes Absolute Auto 2.4 X10*3/uL (1.2-4.9); Mean Corpuscular HGB Conc 34.9 g/dl (31.0-35.0); Mean Corpuscular Hemoglobin 32.5 pg (27.0-33.0); Mean Corpuscular Volume 93.1 fL (80.0-98.0); NRBC Abs Auto 0.000 X10*3/uL (0.0-0.012); NRBC Pct Auto 0.0 /100WBC (0.0-0.2); Platelet Count 193 X10*3/uL (160-400); Red Blood Count 3.94 X10*6/uL (4.20-5.50); White Blood Count 11.7 X10*3/uL (4.8-10.8)
[2024-10-14 13:07] LABS: Alanine Aminotransferase 13 U/L (0-31); Albumin Level 3.8 g/dL (3.5-5.0); Alkaline Phosphatase 52 U/L (39-117); Anion Gap 15 (12-20); Aspartate Amino Transferase 18 U/L (5-31); Blood Urea Nitrogen 18 mg/dL (9-16); Calcium 8.4 mg/dL (8.4-10.2); Carbon Dioxide 24 mmol/L (22-29); Chloride 102 mmol/L (96-108); Creatinine Clr Calc Pharmacy 56.5; Estimated Glomerular Filt Rate > 60; Potassium 4.2 mmol/L (3.3-5.1); Sodium 137 mmol/L (135-145); Total Protein 6.3 g/dL (6.5-8.0)
--- NOTE | 2024-10-14 13:43 | HO.PSYADMNOT ---
HPI Date of Service: 10/14/24 Chief Complaint: Suicidal Sources of Information: patient interviewed, chart reviewed and crisis/core team assessment reviewed HPI Narrative: Patient is a 49 year old female with hx of MDD, MARTELL and PTSD who presented to ER with her d/t suicidal ideation secondary increased anxiety and racing thoughts. Per crisis report, patient presented to ER d/t increase anxiety, racing thoughts and suicidal ideation patient reports feeling very depressed; she reports poor sleep. Patient is requesting to receive ECT. hx of ECT treatments. hx of multiple inpatient psychiatric hospitalizations. hx of multiple suicide attempts via overdose on her insulin and prescription medications. denies any substance use. Patient's , Adrian, reports pt has not sleep overnight and has been presenting as increasingly paranoid, disorganized and off. He reports this is similar to her last presentation when she was hospitalized in 2023. During admission assessment, pt presents alert and oriented x3. calm and cooperative. delayed responses at times. Appears thought blocking at times during conversation. Patient stated, I came to the hospital because of my racing thoughts and hallucinations were giving me anxiety. I was seeing people I don't have contact with anymore . denies SI/HI/VH/AH at this time. Patient reports being medication compliant however states she forgets if I took my medications sometimes so I write myself a note . Patient reports she can not recall if she slept last night. patient did not make any delusional statements during assessment. Past Psychiatric History: hx of multiple inpatient psychiatric hospitalizations hx of 2 SA via OD on medications and overuse of insulin. Outpatient prescriber: Dr. Lawrence ([facility]) Therapist: Litzy ([facility]) hx of SIB via head banging. hx of receiving ECT. Medical Evaluation Reviewed: Yes [facility] Family History: Lives with . no kids. 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 Some college. Social History: Father: depression Mother: anxiety Substance History: denies Trauma History: yes Diagnostics Vital Signs (24Hr): Vital Signs - 24 hr 10/14/24 08:00 Temperature 97.9 F Pulse Rate 75 Respiratory Rate 18 Blood Pressure 113/60 Pulse Oximetry 95 Oxygen Delivery Method Room Air BMI result Body Mass Index 25.1 Labs 10/14/24 12:38 10/14/24 12:38 Labs: Laboratory Results - last 48 hr 10/14/24 10/14/24 10/14/24 02:08 07:43 11:03 WBC RBC Hgb Hct MCV MCH MCHC RDW Plt Count MPV Immature Gran % (Auto) Neut % (Auto) Lymph % (Auto) [place] % (Auto) Eos % (Auto) Baso % (Auto) Lymph # (Auto) [place] # (Auto) Eos # (Auto) Baso # (Auto) Abs Immat Gran (auto) Absolute Neuts (auto) Absolute Nucleated RBC Nucleated RBC % (auto) VBG pH VBG pCO2 VBG pO2 VBG HCO3 VBG O2 Saturation VBG Base Excess Sodium Potassium Chloride Carbon Dioxide Anion Gap BUN Creatinine Estim Creat Clear Calc Estimated GFR POC Glucose 346 H 392 H* 556 H* Random Glucose Calcium Total Bilirubin AST ALT Alkaline Phosphatase Total Protein Albumin Beta-Hydroxybutyrate 10/14/24 10/14/24 10/14/24 12:09 12:38 12:48 WBC 11.7 H RBC 3.94 L Hgb 12.8 Hct 36.7 L MCV 93.1 MCH 32.5 MCHC 34.9 RDW 12.8 Plt Count 193 MPV 9.9 Immature Gran % (Auto) 0.4 Neut % (Auto) 71.5 Lymph % (Auto) 20.1 [place] % (Auto) 4.7 Eos % (Auto) 2.4 Baso % (Auto) 0.9 Lymph # (Auto) 2.4 [place] # (Auto) 0.6 Eos # (Auto) 0.3 Baso # (Auto) 0.1 Abs Immat Gran (auto) 0.05 H Absolute Neuts (auto) 8.4 H Absolute Nucleated RBC 0.000 Nucleated RBC % (auto) 0.0 VBG pH 7.38 VBG pCO2 47 VBG pO2 62 VBG HCO3 28 H VBG O2 Saturation 87.0 VBG Base Excess 3.1 Sodium 137 Potassium 4.2 Chloride 102 Carbon Dioxide 24 Anion Gap 15 BUN 18 H Creatinine 0.94 Estim Creat Clear Calc 56.5 Estimated GFR > 60 POC Glucose 420 H* Random Glucose 360 H* Calcium 8.4 Total Bilirubin 0.5 AST 18 ALT 13 Alkaline Phosphatase 52 Total Protein 6.3 L Albumin 3.8 Beta-Hydroxybutyrate 0.13 Meds/Allergies Meds Home Medications ?Medication ?Instructions ?Recorded ?Confirmed ?Type evolocumab 140 mg/mL subcutaneous 140 mg subcut Q2W 10/14/24 10/14/24 History syringe (Repatha Syringe) fluoxetine 20 mg capsule 20 mg PO DAILY 10/14/24 10/14/24 History fluoxetine 40 mg capsule 40 mg PO DAILY 10/14/24 10/14/24 History levothyroxine 150 mcg tablet 150 mcg PO QAM 10/14/24 10/14/24 History lorazepam 0.5 mg tablet 0.5 mg PO DAILY PRN anxiety 10/14/24 10/14/24 History semaglutide (weight loss) 1 mg/0.5 mg subcut 10/14/24 History mL subcutaneous pen injector (Wegovy) trazodone 50 mg tablet 50 mg PO BEDTIME insomnia 10/14/24 10/14/24 History Allergies Allergies Allergy/AdvReac Type Severity Reaction Status Date / Time Penicillins AdvReac Rash Verified 10/14/24 02:15 Sulfa (Sulfonamide AdvReac Rash Verified 10/14/24 02:15 Antibiotics) Mental Status Exam Mental Status Exam Patient Appearance: Disheveled Patient Orientation: Person, Place, Time and Situation Level of Consciousness: Awake and Alert Patient Behavior: Appropriate, Cooperative and Good Eye Contact Mood Description: Depressed Affect Description: Depressed Ability to Follow Directions: Good Speech Pattern: Clear and Delayed Hallucinations: None Delusions: Not Present Thought Process: Confusion Thought Content: positive for Thought Blocking and positive for Slowed Thinking Assessment & Plan Assessment & Plan (1) MDD (major depressive disorder), recurrent, severe, with psychosis: Status: Acute Code(s): F33.3 - Major depressive disorder, recurrent, severe with psychotic symptoms (2) PTSD (post-traumatic stress disorder): Status: Acute Code(s): F43.10 - Post-traumatic stress disorder, unspecified Plan Patient is a 49 year old female with hx of MDD, MARTELL and PTSD who presented to ER with her d/t suicidal ideation secondary increased anxiety and racing thoughts. Plan: 15 minute safety checks continue home medications per records pt has hx of taking zyprexa TID. Start: Zyprexa 5mg PO bedtime. obtain collateral hospitalist consult for blood sugars encourage groups discharge planning Patient educated on: diagnosis and medication risk/benefits Reason for continued inpatient stay Substantial Risk for: med/psych decompensation Statement Statement: I have reviewed the history and physical and performed a pertinent examination on my patient. No changes have occurred unless specified. If the History and Physical was not performed prior to admission, the Hospitalist's service will be consulted for completing the admission physical. Time Spent With Patient Time: Total time managing care of this patient today _60___ minutes.
[2024-10-14 15:48] LABS: Glucose, Whole Blood 129 mg/dL (60-115)
[2024-10-14 16:58] LABS: Appearance Urine Clear; Glucose Urine UA Negative (Negative); PH 7.5 (5.0-9.0); Specific Gravity - Urine <= 1.005 (1.005-1.025)
[2024-10-14 19:59] VITALS: BP 114/54; PULSE 80; RESP 15; TEMP 36.4; O2SAT 99
[2024-10-14 20:29] LABS: Glucose, Whole Blood 371 mg/dL (60-115)
[2024-10-14 22:26] LABS: Glucose, Whole Blood 207 mg/dL (60-115)
[2024-10-15 02:10] VITALS: BP 94/52; PULSE 71; RESP 15; TEMP 36.6; O2SAT 97
[2024-10-15 07:55] LABS: Glucose, Whole Blood 70 mg/dL (60-115)
[2024-10-15 08:43] LABS: Hemoglobin A1C 178.2778 umol/L; Total Hemoglobin (HGBA1C) 3258.2109 umol/L
[2024-10-15 08:58] LABS: Alanine Aminotransferase 11 U/L (0-31); Albumin Level 3.5 g/dL (3.5-5.0); Alkaline Phosphatase 42 U/L (39-117); Anion Gap 12 (12-20); Aspartate Amino Transferase 17 U/L (5-31); Blood Urea Nitrogen 15 mg/dL (9-16); Calcium 8.4 mg/dL (8.4-10.2); Carbon Dioxide 30 mmol/L (22-29); Chloride 104 mmol/L (96-108); Cholesterol 125 mg/dL (<200); Creatinine Clr Calc Pharmacy 57.8; Estimated Glomerular Filt Rate > 60; HDL Cholesterol 66 mg/dL (>40); Potassium 3.8 mmol/L (3.3-5.1); Sodium 142 mmol/L (135-145); Total Protein 5.8 g/dL (6.5-8.0); Triglycerides 59 mg/dL (<150)
[2024-10-15 09:00] VITALS: BP 99/60; PULSE 66; RESP 16; TEMP 36.7; O2SAT 95
[2024-10-15] MEDS: Insulin Glargine,Hum.rec.anlog 100 UNIT/ML 10 ML VIAL 10 UNIT SUBCUT (09:02)
[2024-10-15 12:07] LABS: Glucose, Whole Blood 389 mg/dL (60-115)
[2024-10-15] MEDS: Milk of Magnesia 30 ML ORAL.SUSP PO (12:22)
--- NOTE | 2024-10-15 13:17 | HO.PSYCHPN ---
Subjective Subjective Date of Service: 10/15/24 Reason For Visit: Suicidal Interim History: Keeping to self. Met with patient and , padma Campbell. Patient's brought in discharge summary from last inpatient hospitalization; placed in chart. He reports patient is usually not this forgetful and thought blocking . would like to set up family meeting with her director social and provider on Wednesday to discuss treatment; he was educated to call unit on Wednesday to set up with primary team. Patient continues with some thought blocking during conversation. Presents less confused than yesterday. She did not recall meeting with T/W yesterday. Patient reports she believes she needs ECT; she has previously received 7 treatments at her last hospitalization and feels it helped her. Patient denies SI/HI/VH/AH. Continue tx plan. Medication Compliance: Yes Side effects from medications: No Mental Status Exam Mental Status Exam Patient Appearance: Disheveled Patient Orientation: Person, Place, Time and Situation Level of Consciousness: Awake and Alert Patient Behavior: Appropriate, Cooperative and Good Eye Contact Mood Description: Depressed Affect Description: Depressed Ability to Follow Directions: Good Speech Pattern: Clear and Delayed Thought Process: Intact Thought Content: positive for Intact Diagnostics Vital Signs (24Hr): Vital Signs - 24 hr 10/14/24 19:59 10/15/24 02:10 10/15/24 09:00 Temperature 97.5 F 98 F 98.0 F Pulse Rate 80 71 66 Respiratory Rate 15 15 16 Blood Pressure 114/54 L 94/52 L 99/60 Pulse Oximetry 99 97 95 Oxygen Delivery Method Room Air BMI result Body Mass Index 25.1 Labs 10/14/24 12:38 10/15/24 08:22 Labs: Laboratory Results - last 48 hr 10/14/24 10/14/24 10/14/24 02:08 07:43 11:03 WBC RBC Hgb Hct MCV MCH MCHC RDW Plt Count MPV Immature Gran % (Auto) Neut % (Auto) Lymph % (Auto) [place] % (Auto) Eos % (Auto) Baso % (Auto) Lymph # (Auto) [place] # (Auto) Eos # (Auto) Baso # (Auto) Abs Immat Gran (auto) Absolute Neuts (auto) Absolute Nucleated RBC Nucleated RBC % (auto) VBG pH VBG pCO2 VBG pO2 VBG HCO3 VBG O2 Saturation VBG Base Excess Sodium Potassium Chloride Carbon Dioxide Anion Gap BUN Creatinine Estim Creat Clear Calc Estimated GFR POC Glucose 346 H 392 H* 556 H* Random Glucose Estimat Average Glucose Hemoglobin A1c % Calcium Total Bilirubin AST ALT Alkaline Phosphatase Total Protein Albumin Triglycerides Cholesterol LDL Cholesterol, Calc HDL Cholesterol Beta-Hydroxybutyrate Urine Color Urine Appearance Urine pH Ur Specific [place] Urine Protein Urine Glucose (UA) Urine Ketones Urine Blood Urine Nitrite Ur Leukocyte Esterase 10/14/24 10/14/24 10/14/24 12:09 12:38 12:48 WBC 11.7 H RBC 3.94 L Hgb 12.8 Hct 36.7 L MCV 93.1 MCH 32.5 MCHC 34.9 RDW 12.8 Plt Count 193 MPV 9.9 Immature Gran % (Auto) 0.4 Neut % (Auto) 71.5 Lymph % (Auto) 20.1 [place] % (Auto) 4.7 Eos % (Auto) 2.4 Baso % (Auto) 0.9 Lymph # (Auto) 2.4 [place] # (Auto) 0.6 Eos # (Auto) 0.3 Baso # (Auto) 0.1 Abs Immat Gran (auto) 0.05 H Absolute Neuts (auto) 8.4 H Absolute Nucleated RBC 0.000 Nucleated RBC % (auto) 0.0 VBG pH 7.38 VBG pCO2 47 VBG pO2 62 VBG HCO3 28 H VBG O2 Saturation 87.0 VBG Base Excess 3.1 Sodium 137 Potassium 4.2 Chloride 102 Carbon Dioxide 24 Anion Gap 15 BUN 18 H Creatinine 0.94 Estim Creat Clear Calc 56.5 Estimated GFR > 60 POC Glucose 420 H* Random Glucose 360 H* Estimat Average Glucose Hemoglobin A1c % Calcium 8.4 Total Bilirubin 0.5 AST 18 ALT 13 Alkaline Phosphatase 52 Total Protein 6.3 L Albumin 3.8 Triglycerides Cholesterol LDL Cholesterol, Calc HDL Cholesterol Beta-Hydroxybutyrate 0.13 Urine Color Urine Appearance Urine pH Ur Specific [place] Urine Protein Urine Glucose (UA) Urine Ketones Urine Blood Urine Nitrite Ur Leukocyte Esterase 10/14/24 10/14/24 10/14/24 15:38 16:35 20:26 WBC RBC Hgb Hct MCV MCH MCHC RDW Plt Count MPV Immature Gran % (Auto) Neut % (Auto) Lymph % (Auto) [place] % (Auto) Eos % (Auto) Baso % (Auto) Lymph # (Auto) [place] # (Auto) Eos # (Auto) Baso # (Auto) Abs Immat Gran (auto) Absolute Neuts (auto) Absolute Nucleated RBC Nucleated RBC % (auto) VBG pH VBG pCO2 VBG pO2 VBG HCO3 VBG O2 Saturation VBG Base Excess Sodium Potassium Chloride Carbon Dioxide Anion Gap BUN Creatinine Estim Creat Clear Calc Estimated GFR POC Glucose 129 H 371 H* Random Glucose Estimat Average Glucose Hemoglobin A1c % Calcium Total Bilirubin AST ALT Alkaline Phosphatase Total Protein Albumin Triglycerides Cholesterol LDL Cholesterol, Calc HDL Cholesterol Beta-Hydroxybutyrate Urine Color Yellow Urine Appearance Clear Urine pH 7.5 Ur Specific [place] <= 1.005 Urine Protein Negative Urine Glucose (UA) Negative Urine Ketones Negative Urine Blood Negative Urine Nitrite Negative Ur Leukocyte Esterase Negative 10/14/24 10/15/24 10/15/24 22:21 07:49 08:22 WBC RBC Hgb Hct MCV MCH MCHC RDW Plt Count MPV Immature Gran % (Auto) Neut % (Auto) Lymph % (Auto) [place] % (Auto) Eos % (Auto) Baso % (Auto) Lymph # (Auto) [place] # (Auto) Eos # (Auto) Baso # (Auto) Abs Immat Gran (auto) Absolute Neuts (auto) Absolute Nucleated RBC Nucleated RBC % (auto) VBG pH VBG pCO2 VBG pO2 VBG HCO3 VBG O2 Saturation VBG Base Excess Sodium 142 Potassium 3.8 Chloride 104 Carbon Dioxide 30 H Anion Gap 12 BUN 15 Creatinine 0.92 Estim Creat Clear Calc 57.8 Estimated GFR > 60 POC Glucose 207 H 70 Random Glucose 79 Estimat Average Glucose 160 Hemoglobin A1c % 7.2 H Calcium 8.4 Total Bilirubin 0.6 AST 17 ALT 11 Alkaline Phosphatase 42 Total Protein 5.8 L Albumin 3.5 Triglycerides 59 Cholesterol 125 LDL Cholesterol, Calc 48 HDL Cholesterol 66 Beta-Hydroxybutyrate Urine Color Urine Appearance Urine pH Ur Specific [place] Urine Protein Urine Glucose (UA) Urine Ketones Urine Blood Urine Nitrite Ur Leukocyte Esterase 10/15/24 11:50 WBC RBC Hgb Hct MCV MCH MCHC RDW Plt Count MPV Immature Gran % (Auto) Neut % (Auto) Lymph % (Auto) [place] % (Auto) Eos % (Auto) Baso % (Auto) Lymph # (Auto) [place] # (Auto) Eos # (Auto) Baso # (Auto) Abs Immat Gran (auto) Absolute Neuts (auto) Absolute Nucleated RBC Nucleated RBC % (auto) VBG pH VBG pCO2 VBG pO2 VBG HCO3 VBG O2 Saturation VBG Base Excess Sodium Potassium Chloride Carbon Dioxide Anion Gap BUN Creatinine Estim Creat Clear Calc Estimated GFR POC Glucose 389 H* Random Glucose Estimat Average Glucose Hemoglobin A1c % Calcium Total Bilirubin AST ALT Alkaline Phosphatase Total Protein Albumin Triglycerides Cholesterol LDL Cholesterol, Calc HDL Cholesterol Beta-Hydroxybutyrate Urine Color Urine Appearance Urine pH Ur Specific [place] Urine Protein Urine Glucose (UA) Urine Ketones Urine Blood Urine Nitrite Ur Leukocyte Esterase Medications Medications Current Medications Acetaminophen (Acetaminophen 325 Mg Tablet) 650 mg PO Q6H PRN PRN Reason: Headache/Pain, Scale 1-10 Al Hydroxide/Mg Hydroxide (Magnesium Hydrox/Alum Hydrox 30 Ml Oral.Susp) 30 ml PO Q6H PRN PRN Reason: Heartburn/Nausea Dextrose (Dextrose 50 % 25 Gm/50 Ml Syringe) 25 gm IVPUSH Q15M PRN; Protocol PRN Reason: per Hypoglycemia Standing Ord. Fluoxetine HCl (Fluoxetine Hcl 20 Mg Capsule) 20 mg PO DAILY [facility] Last Admin: 10/15/24 08:59 Dose: 20 mg Fluoxetine HCl (Fluoxetine Hcl 20 Mg Capsule) 40 mg PO DAILY [facility] Last Admin: 10/15/24 08:59 Dose: 40 mg Glucose (Glucose Gel 15 Gm Gel..Gram.) 15 gm PO Q15M PRN; Protocol PRN Reason: per Hypoglycemia Standing Ord. Hydroxyzine HCl (Hydroxyzine Hcl 25 Mg Tablet) 25 mg PO Q6H PRN PRN Reason: mild anxiety Last Admin: 10/14/24 03:41 Dose: 25 mg Insulin Glargine (Insulin Glargine,Hum.Rec.Anlog 100 Unit/Ml 10 Ml Vial) 10 unit SUBCUT DAILY [facility] Last Admin: 10/15/24 09:02 Dose: 10 unit Insulin Human Lispro (Insulin Lispro 100 Unit/Ml 3 Ml Vial) 0 unit SUBCUT QIDACHS [facility]; Protocol Last Admin: 10/15/24 12:16 Dose: 10 unit Levothyroxine Sodium (Levothyroxine Sodium 150 Mcg Tablet) 150 mcg PO DAILY@0600 [facility] Last Admin: 10/15/24 06:39 Dose: 150 mcg Lorazepam (Lorazepam 0.5 Mg Tablet) 0.5 mg PO DAILY PRN PRN Reason: Anxiety Last Admin: 10/14/24 16:31 Dose: 0.5 mg Magnesium Hydroxide (Milk Of Magnesia 30 Ml Oral.Susp) 30 ml PO DAILY PRN PRN Reason: Constipation Last Admin: 10/15/24 12:22 Dose: 30 ml Nicotine Polacrilex (Nicotine Polacrilex 2 Mg Gum) 4 mg BUCCAL Q2H PRN PRN Reason: Nicotine Cravings Non-Formulary Medication (Evolocumab [Repatha Syringe]) 140 mg SUBCUT Q14D [facility] Olanzapine (Olanzapine 5 Mg Tablet) 5 mg PO BEDTIME [facility] Last Admin: 10/14/24 20:36 Dose: 5 mg Trazodone HCl (Trazodone Hcl 50 Mg Tablet) 50 mg PO BEDTIME MRX1 PRN PRN Reason: Insomnia Last Admin: 10/14/24 03:41 Dose: 50 mg Trazodone HCl (Trazodone Hcl 50 Mg Tablet) 50 mg PO BEDTIME [facility] Last Admin: 10/14/24 20:37 Dose: 50 mg Allergies Allergies Allergy/AdvReac Type Severity Reaction Status Date / Time Penicillins AdvReac Rash Verified 10/14/24 02:15 Sulfa (Sulfonamide AdvReac Rash Verified 10/14/24 02:15 Antibiotics) Assessment & Plan Assessment & Plan (1) MDD (major depressive disorder), recurrent, severe, with psychosis: Status: Acute Code(s): F33.3 - Major depressive disorder, recurrent, severe with psychotic symptoms (2) PTSD (post-traumatic stress disorder): Status: Acute Code(s): F43.10 - Post-traumatic stress disorder, unspecified Plan Patient is a 49 year old female with hx of MDD, MARTELL and PTSD who presented to ER with her d/t suicidal ideation secondary increased anxiety and racing thoughts. Plan: 15 minute safety checks continue home medications per records pt has hx of taking zyprexa TID. Start: Zyprexa 5mg PO bedtime. obtain collateral hospitalist consult for blood sugars encourage groups discharge planning 10/15: Keeping to self. Met with patient and , padma Campbell. Patient's brought in discharge summary from last inpatient hospitalization; placed in chart. He reports patient is usually not this forgetful and thought blocking . would like to set up family meeting with her director social and provider on Wednesday to discuss treatment; he was educated to call unit on Wednesday to set up with primary team. Patient continues with some thought blocking during conversation. Presents less confused than yesterday. She did not recall meeting with T/W yesterday. Patient reports she believes she needs ECT; she has previously received 7 treatments at her last hospitalization and feels it helped her. Patient denies SI/HI/VH/AH. Continue tx plan. Patient educated on: diagnosis and medication risk/benefits Guardian/Caregiver educated on: medication risk/benefits Reason for continued inpatient stay Substantial Risk for: med/psych decompensation Time Spent With Patient Time: Total time managing care of this patient today _30___ minutes.
[2024-10-15 16:42] LABS: Glucose, Whole Blood 108 mg/dL (60-115)
[2024-10-15 20:00] VITALS: BP 100/60; PULSE 81; RESP 16; TEMP 37; O2SAT 95
[2024-10-15 20:47] LABS: Glucose, Whole Blood 177 mg/dL (60-115)
[2024-10-16 08:00] VITALS: BP 102/57; PULSE 77; RESP 18; TEMP 36.6; O2SAT 96
[2024-10-16 08:19] LABS: Glucose, Whole Blood 188 mg/dL (60-115)
[2024-10-16] MEDS: Insulin Glargine,Hum.rec.anlog 100 UNIT/ML 10 ML VIAL 10 UNIT SUBCUT (08:31)
[2024-10-16 12:04] LABS: Glucose, Whole Blood 216 mg/dL (60-115)
--- NOTE | 2024-10-16 13:04 | HO.PSYCHPN ---
Subjective Subjective Date of Service: 10/16/24 Reason For Visit: Suicidal Interim History: Keeping to self. Patient continues with some thought blocking and confusion. Less delay in responses. Patient reports she feels depressed because I'm thinking of my grandfather who in 1986 ; pt was unable to explain why she was focused on this. Flight of ideas during conversation. denies SI/HI/VH/AH. Continue tx plan. Medication Compliance: Yes Side effects from medications: No Attending Groups: No Mental Status Exam Mental Status Exam Patient Appearance: Appropriate Patient Orientation: Person, Place, Time and Situation Level of Consciousness: Awake and Alert Patient Behavior: Appropriate, Cooperative and Good Eye Contact Mood Description: Depressed Affect Description: Depressed Ability to Follow Directions: Good Speech Pattern: Clear, Delayed and Long Pauses Hallucinations: None Thought Process: Confusion Thought Content: positive for Flight of Ideas Diagnostics Vital Signs (24Hr): Vital Signs - 24 hr 10/15/24 20:00 10/16/24 08:00 Temperature 98.6 F 97.9 F Pulse Rate 81 77 Respiratory Rate 16 18 Blood Pressure 100/60 102/57 L Pulse Oximetry 95 96 Oxygen Delivery Method Room Air Room Air BMI result Body Mass Index 25.1 Labs 10/14/24 12:38 10/15/24 08:22 Labs: Laboratory Results - last 48 hr 10/14/24 10/14/24 10/14/24 12:38 15:38 16:35 Sodium 137 Potassium 4.2 Chloride 102 Carbon Dioxide 24 Anion Gap 15 BUN 18 H Creatinine 0.94 Estim Creat Clear Calc 56.5 Estimated GFR > 60 POC Glucose 129 H Random Glucose 360 H* Estimat Average Glucose Hemoglobin A1c % Calcium 8.4 Total Bilirubin 0.5 AST 18 ALT 13 Alkaline Phosphatase 52 Total Protein 6.3 L Albumin 3.8 Triglycerides Cholesterol LDL Cholesterol, Calc HDL Cholesterol Beta-Hydroxybutyrate 0.13 Urine Color Yellow Urine Appearance Clear Urine pH 7.5 Ur Specific [place] <= 1.005 Urine Protein Negative Urine Glucose (UA) Negative Urine Ketones Negative Urine Blood Negative Urine Nitrite Negative Ur Leukocyte Esterase Negative 10/14/24 10/14/24 10/15/24 20:26 22:21 07:49 Sodium Potassium Chloride Carbon Dioxide Anion Gap BUN Creatinine Estim Creat Clear Calc Estimated GFR POC Glucose 371 H* 207 H 70 Random Glucose Estimat Average Glucose Hemoglobin A1c % Calcium Total Bilirubin AST ALT Alkaline Phosphatase Total Protein Albumin Triglycerides Cholesterol LDL Cholesterol, Calc HDL Cholesterol Beta-Hydroxybutyrate Urine Color Urine Appearance Urine pH Ur Specific [place] Urine Protein Urine Glucose (UA) Urine Ketones Urine Blood Urine Nitrite Ur Leukocyte Esterase 10/15/24 10/15/24 10/15/24 08:22 11:50 16:34 Sodium 142 Potassium 3.8 Chloride 104 Carbon Dioxide 30 H Anion Gap 12 BUN 15 Creatinine 0.92 Estim Creat Clear Calc 57.8 Estimated GFR > 60 POC Glucose 389 H* 108 Random Glucose 79 Estimat Average Glucose 160 Hemoglobin A1c % 7.2 H Calcium 8.4 Total Bilirubin 0.6 AST 17 ALT 11 Alkaline Phosphatase 42 Total Protein 5.8 L Albumin 3.5 Triglycerides 59 Cholesterol 125 LDL Cholesterol, Calc 48 HDL Cholesterol 66 Beta-Hydroxybutyrate Urine Color Urine Appearance Urine pH Ur Specific [place] Urine Protein Urine Glucose (UA) Urine Ketones Urine Blood Urine Nitrite Ur Leukocyte Esterase 10/15/24 10/16/24 10/16/24 20:42 08:14 12:01 Sodium Potassium Chloride Carbon Dioxide Anion Gap BUN Creatinine Estim Creat Clear Calc Estimated GFR POC Glucose 177 H 188 H 216 H Random Glucose Estimat Average Glucose Hemoglobin A1c % Calcium Total Bilirubin AST ALT Alkaline Phosphatase Total Protein Albumin Triglycerides Cholesterol LDL Cholesterol, Calc HDL Cholesterol Beta-Hydroxybutyrate Urine Color Urine Appearance Urine pH Ur Specific [place] Urine Protein Urine Glucose (UA) Urine Ketones Urine Blood Urine Nitrite Ur Leukocyte Esterase Medications Medications Current Medications Acetaminophen (Acetaminophen 325 Mg Tablet) 650 mg PO Q6H PRN PRN Reason: Headache/Pain, Scale 1-10 Al Hydroxide/Mg Hydroxide (Magnesium Hydrox/Alum Hydrox 30 Ml Oral.Susp) 30 ml PO Q6H PRN PRN Reason: Heartburn/Nausea Dextrose (Dextrose 50 % 25 Gm/50 Ml Syringe) 25 gm IVPUSH Q15M PRN; Protocol PRN Reason: per Hypoglycemia Standing Ord. Fluoxetine HCl (Fluoxetine Hcl 20 Mg Capsule) 20 mg PO DAILY [facility] Last Admin: 10/16/24 08:28 Dose: 20 mg Fluoxetine HCl (Fluoxetine Hcl 20 Mg Capsule) 40 mg PO DAILY [facility] Last Admin: 10/16/24 08:29 Dose: 40 mg Glucose (Glucose Gel 15 Gm Gel..Gram.) 15 gm PO Q15M PRN; Protocol PRN Reason: per Hypoglycemia Standing Ord. Hydroxyzine HCl (Hydroxyzine Hcl 25 Mg Tablet) 25 mg PO Q6H PRN PRN Reason: mild anxiety Last Admin: 10/15/24 23:22 Dose: 25 mg Insulin Glargine (Insulin Glargine,Hum.Rec.Anlog 100 Unit/Ml 10 Ml Vial) 10 unit SUBCUT DAILY [facility] Last Admin: 10/16/24 08:31 Dose: 10 unit Insulin Human Lispro (Insulin Lispro 100 Unit/Ml 3 Ml Vial) 0 unit SUBCUT QIDACHS [facility]; Protocol Last Admin: 10/16/24 12:06 Dose: 4 unit Levothyroxine Sodium (Levothyroxine Sodium 150 Mcg Tablet) 150 mcg PO DAILY@0600 [facility] Last Admin: 10/16/24 06:14 Dose: 150 mcg Lorazepam (Lorazepam 0.5 Mg Tablet) 0.5 mg PO DAILY PRN PRN Reason: Anxiety Last Admin: 10/15/24 16:13 Dose: 0.5 mg Magnesium Hydroxide (Milk Of Magnesia 30 Ml Oral.Susp) 30 ml PO DAILY PRN PRN Reason: Constipation Last Admin: 10/15/24 12:22 Dose: 30 ml Nicotine Polacrilex (Nicotine Polacrilex 2 Mg Gum) 4 mg BUCCAL Q2H PRN PRN Reason: Nicotine Cravings Non-Formulary Medication (Evolocumab [Repatha Syringe]) 140 mg SUBCUT Q14D [facility] Olanzapine (Olanzapine 5 Mg Tablet) 5 mg PO BEDTIME [facility] Last Admin: 10/15/24 21:27 Dose: 5 mg Trazodone HCl (Trazodone Hcl 50 Mg Tablet) 50 mg PO BEDTIME MRX1 PRN PRN Reason: Insomnia Last Admin: 10/15/24 23:21 Dose: 50 mg Trazodone HCl (Trazodone Hcl 50 Mg Tablet) 50 mg PO BEDTIME [facility] Last Admin: 10/15/24 21:27 Dose: 50 mg Allergies Allergies Allergy/AdvReac Type Severity Reaction Status Date / Time Penicillins AdvReac Rash Verified 10/14/24 02:15 Sulfa (Sulfonamide AdvReac Rash Verified 10/14/24 02:15 Antibiotics) Assessment & Plan Assessment & Plan (1) MDD (major depressive disorder), recurrent, severe, with psychosis: Status: Acute Code(s): F33.3 - Major depressive disorder, recurrent, severe with psychotic symptoms (2) PTSD (post-traumatic stress disorder): Status: Acute Code(s): F43.10 - Post-traumatic stress disorder, unspecified Plan Patient is a 49 year old female with hx of MDD, MARTELL and PTSD who presented to ER with her d/t suicidal ideation secondary increased anxiety and racing thoughts. Plan: 15 minute safety checks continue home medications per records pt has hx of taking zyprexa TID. Start: Zyprexa 5mg PO bedtime. obtain collateral hospitalist consult for blood sugars encourage groups discharge planning 10/15: Keeping to self. Met with patient and , padma Campbell. Patient's brought in discharge summary from last inpatient hospitalization; placed in chart. He reports patient is usually not this forgetful and thought blocking . would like to set up family meeting with her social sciences lecturer and provider on Wednesday to discuss treatment; he was educated to call unit on Wednesday to set up with primary team. Patient continues with some thought blocking during conversation. Presents less confused than yesterday. She did not recall meeting with T/W yesterday. Patient reports she believes she needs ECT; she has previously received 7 treatments at her last hospitalization and feels it helped her. Patient denies SI/HI/VH/AH. Continue tx plan. 10/16: continue current tx plan. Patient educated on: diagnosis, medication risk/benefits and therapeutic strategies Reason for continued inpatient stay Substantial Risk for: med/psych decompensation Time Spent With Patient Time: Total time managing care of this patient today _20___ minutes.
[2024-10-16 14:00] LABS: Glucose, Whole Blood 480 mg/dL (60-115)
--- NOTE | 2024-10-16 14:14 | PM.EVENT ---
Event Note Date of Service: 10/16/24 Event Note: Blood glucose still elevated. lantus 5 units added for bedtime. mealtime lispro added Time Spent With Patient Time: Total time managing care of this patient today ____ minutes.
[2024-10-16 17:29] LABS: Glucose, Whole Blood 99 mg/dL (60-115)
[2024-10-16 19:52] VITALS: BP 104/59; PULSE 80; RESP 15; TEMP 37.1; O2SAT 98
[2024-10-16 21:11] LABS: Glucose, Whole Blood 351 mg/dL (60-115)
[2024-10-16] MEDS: Insulin Glargine,Hum.rec.anlog 100 UNIT/ML 10 ML VIAL SUBCUT (21:38)
[2024-10-16 23:54] LABS: Glucose, Whole Blood 171 mg/dL (60-115)
[2024-10-17 03:18] LABS: Glucose, Whole Blood 41 mg/dL (60-115)
[2024-10-17] MEDS: Glucose Gel 15 GM GEL..GRAM. PO (03:19)
[2024-10-17 03:46] LABS: Glucose, Whole Blood 115 mg/dL (60-115)
--- NOTE | 2024-10-17 04:15 | MHC.EVENTN ---
At 3:10 am pt came out of her room and reported to staff feeling hypoglycemic, and her symptoms were headache and dizziness. When checked, her BG was 41. She was administered PO PRN Glucose Gel, and her BG went up to 115 after 15 minutes. After that pt ate a banana, one chicken sandwich and a small bag of potato chips, and when rechecked in 15 minutes, her BG went up to 178. Pt reported feeling better after eating, and she went back to bed.
[2024-10-17 04:16] LABS: Glucose, Whole Blood 178 mg/dL (60-115)
[2024-10-17 07:52] VITALS: BP 118/56; PULSE 73; RESP 16; TEMP 36.6; O2SAT 97
[2024-10-17 08:10] LABS: Glucose, Whole Blood 362 mg/dL (60-115)
[2024-10-17] MEDS: Insulin Glargine,Hum.rec.anlog 100 UNIT/ML 10 ML VIAL 10 UNIT SUBCUT (08:26)
[2024-10-17 12:24] LABS: Glucose, Whole Blood 94 mg/dL (60-115)
--- NOTE | 2024-10-17 16:22 | P.PNPSI_ITS ---
Subjective Subjective Date of Service: 10/17/24 Reason For Visit: Suicidal Subjective Notes: Conditional Voluntary and 3 Day (retracted) Healthcare Proxy: No Guardianship: No Medical Problems Affecting Mental Status: No Interim History: Three day notice retracted. Pt remains depressed, guarded, however, able to have an extended discussion today and identify current needs. POC low 41-115. Discussed ECT efficacy by history. She hopes to begin a course here and continue as an out pt for maintenance at [facility] when stable. I am too sick now . I think I need to begin as an in pt. Discussed concerns with constipation, possible UTI, BV sx, pt has an injury to nail R ring finger-will ask hospitalist to review for abx consideration-gel nail traumatically removed. Will continue bacitracin with bandage currently. Asks for lemon water-requested from dietary Review of medications. Pt requests Olanzapine prn only. Medication Compliance: Yes Side effects from medications: No Attending Groups: No Review of Systems as noted Medical Review of Systems: unchanged Review of Systems Review of Systems UTI/BV sx constipation traumatic nail injury Mental Status Exam Mental Status Exam Patient Appearance: Fatigued Patient Orientation: Person, Place, Time and Situation Level of Consciousness: Alert Patient Behavior: Guarded and Talkative Mood Description: Depressed Affect Description: Flat Patient Cognition Impaired: No Ability to Follow Directions: Good Speech Pattern: Spontaneous Speech Memory Description: Episodic Impaired Hallucinations: None Delusions: Present Thought Process: Distracted and Rumination Thought Content: positive for Perseveration, positive for Thought Blocking and positive for Slowed Thinking Depressive Symptoms: Increased Fatigue, Low Self Esteem, Loss of Energy and Difficulty Concentrating Abnormal Motor Activity Signs and Symptoms: Restlessness Judgement: Fair Diagnostics Vital Signs (24Hr): Vital Signs - 24 hr 10/16/24 19:52 10/17/24 07:52 Temperature 98.7 F 97.9 F Pulse Rate 80 73 Respiratory Rate 15 16 Blood Pressure 104/59 L 118/56 L Pulse Oximetry 98 97 Oxygen Delivery Method Room Air BMI result Body Mass Index 25.1 Labs 10/14/24 12:38 10/15/24 08:22 Labs: Laboratory Results - last 48 hr 10/15/24 10/15/24 10/16/24 16:34 20:42 08:14 POC Glucose 108 177 H 188 H 10/16/24 10/16/24 10/16/24 12:01 13:55 17:23 POC Glucose 216 H 480 H* 99 10/16/24 10/16/24 10/17/24 21:06 23:48 03:14 POC Glucose 351 H* 171 H 41 L* 10/17/24 10/17/24 10/17/24 03:42 04:02 08:05 POC Glucose 115 178 H 362 H* 10/17/24 12:15 POC Glucose 94 Medications Medications Current Medications Acetaminophen (Acetaminophen 325 Mg Tablet) 650 mg PO Q6H PRN PRN Reason: Headache/Pain, Scale 1-10 Al Hydroxide/Mg Hydroxide (Magnesium Hydrox/Alum Hydrox 30 Ml Oral.Susp) 30 ml PO Q6H PRN PRN Reason: Heartburn/Nausea Dextrose (Dextrose 50 % 25 Gm/50 Ml Syringe) 25 gm IVPUSH Q15M PRN; Protocol PRN Reason: per Hypoglycemia Standing Ord. Fluoxetine HCl (Fluoxetine Hcl 20 Mg Capsule) 20 mg PO DAILY [facility] Last Admin: 10/17/24 08:24 Dose: 20 mg Fluoxetine HCl (Fluoxetine Hcl 20 Mg Capsule) 40 mg PO DAILY [facility] Last Admin: 10/17/24 08:24 Dose: 40 mg Glucose (Glucose Gel 15 Gm Gel..Gram.) 15 gm PO Q15M PRN; Protocol PRN Reason: per Hypoglycemia Standing Ord. Last Admin: 10/17/24 03:19 Dose: 15 gm Hydroxyzine HCl (Hydroxyzine Hcl 25 Mg Tablet) 25 mg PO Q6H PRN PRN Reason: mild anxiety Last Admin: 10/16/24 18:37 Dose: 25 mg Insulin Glargine (Insulin Glargine,Hum.Rec.Anlog 100 Unit/Ml 10 Ml Vial) 10 unit SUBCUT DAILY [facility] Last Admin: 10/17/24 08:26 Dose: 10 unit Insulin Glargine (Insulin Glargine,Hum.Rec.Anlog 100 Unit/Ml 10 Ml Vial) 5 unit SUBCUT BEDTIME [facility] Last Admin: 10/16/24 21:38 Dose: 5 unit Insulin Human Lispro (Insulin Lispro 100 Unit/Ml 3 Ml Vial) 0 unit SUBCUT QIDACHS [facility]; Protocol Last Admin: 10/17/24 12:19 Dose: Not Given Insulin Human Lispro (Insulin Lispro 100 Unit/Ml 3 Ml Vial) 5 unit SUBCUT QIDACHS [facility] On Hold: 10/17/24 03:26 Last Admin: 10/16/24 21:39 Dose: 5 unit Levothyroxine Sodium (Levothyroxine Sodium 150 Mcg Tablet) 150 mcg PO DAILY@0600 [facility] Last Admin: 10/17/24 06:42 Dose: 150 mcg Lorazepam (Lorazepam 0.5 Mg Tablet) 0.5 mg PO DAILY PRN PRN Reason: Anxiety Last Admin: 10/17/24 15:07 Dose: 0.5 mg Magnesium Hydroxide (Milk Of Magnesia 30 Ml Oral.Susp) 30 ml PO DAILY PRN PRN Reason: Constipation Last Admin: 10/15/24 12:22 Dose: 30 ml Nicotine Polacrilex (Nicotine Polacrilex 2 Mg Gum) 4 mg BUCCAL Q2H PRN PRN Reason: Nicotine Cravings Non-Formulary Medication (Evolocumab [Repatha Syringe]) 140 mg SUBCUT Q14D [facility] Olanzapine (Olanzapine 5 Mg Tablet) 5 mg PO BEDTIME PRN PRN Reason: sleep Trazodone HCl (Trazodone Hcl 50 Mg Tablet) 50 mg PO BEDTIME MRX1 PRN PRN Reason: Insomnia Last Admin: 10/16/24 23:57 Dose: 50 mg Trazodone HCl (Trazodone Hcl 50 Mg Tablet) 50 mg PO BEDTIME [facility] Last Admin: 10/16/24 21:37 Dose: 50 mg Allergies Allergies Allergy/AdvReac Type Severity Reaction Status Date / Time Penicillins AdvReac Rash Verified 10/14/24 02:15 Sulfa (Sulfonamide AdvReac Rash Verified 10/14/24 02:15 Antibiotics) Assessment & Plan Assessment & Plan (1) MDD (major depressive disorder), recurrent, severe, with psychosis: Status: Acute Code(s): F33.3 - Major depressive disorder, recurrent, severe with psychotic symptoms (2) PTSD (post-traumatic stress disorder): Status: Acute Code(s): F43.10 - Post-traumatic stress disorder, unspecified Plan Patient is a 49 year old female with hx of MDD, MARTELL and PTSD who presented to ER with her d/t suicidal ideation secondary increased anxiety and racing thoughts. Plan: 15 minute safety checks continue home medications per records pt has hx of taking zyprexa TID. Start: Zyprexa 5mg PO bedtime. obtain collateral hospitalist consult for blood sugars encourage groups discharge planning 10/15: Keeping to self. Met with patient and , Adrian, present. Patient's brought in discharge summary from last inpatient hospitalization; placed in chart. He reports patient is usually not this forgetful and thought blocking . would like to set up family meeting with her hospice social worker and provider on Wednesday to discuss treatment; he was educated to call unit on Wednesday to set up with primary team. Patient continues with some thought blocking during conversation. Presents less confused than yesterday. She did not recall meeting with T/W yesterday. Patient reports she believes she needs ECT; she has previously received 7 treatments at her last hospitalization and feels it helped her. Patient denies SI/HI/VH/AH. Continue tx plan. 10/16: continue current tx plan. 10/17: Dana Delong Hospitalist consult R ring finger evulsion Urine culture, BV panel ECT consult Reason for continued inpatient stay Substantial Risk for: rapid decompensation Time Spent With Patient Time: Total time managing care of this patient today ____ minutes.
[2024-10-17 17:15] LABS: Glucose, Whole Blood 209 mg/dL (60-115)
--- NOTE | 2024-10-17 18:39 | PC.NURSE ---
Dr Stacy, hospitalist, notified at 0816 of POC BS of 362. Scheduled Lantus 10 units and sliding scale Admelog insulin 10 units to be given, ? additional units to be given. Order received no additional insulin coverage needed.
--- NOTE | 2024-10-17 18:44 | PC.NURSE ---
Late entry 10/15/24 1159: Dr Martinez notified of POC BS of 389. Sliding scale Admelog insulin 10 units to be given, ? additional insulin needed. Order received to administer 5 units additional Admelog insulin.
[2024-10-17 20:00] VITALS: BP 113/66; PULSE 80; RESP 16; TEMP 36.6; O2SAT 96
[2024-10-17 20:36] LABS: Bacterial Vaginosis PCR NEGATIVE (Negative); Candida Group PCR DETECTED (Not Detect); Candida glab krusei PCR NOT DETECTED (Not Detect); Trichomonas vaginalis PCR NOT DETECTED (Not Detect)
[2024-10-17] MEDS: Insulin Glargine,Hum.rec.anlog 100 UNIT/ML 10 ML VIAL SUBCUT (21:06)
[2024-10-17 23:50] LABS: Glucose, Whole Blood 255 mg/dL (60-115)
[2024-10-17 23:50] LABS: Glucose, Whole Blood 140 mg/dL (60-115)
[2024-10-18 08:07] VITALS: BP 95/50; PULSE 65; TEMP 36.3; O2SAT 98
[2024-10-18 08:18] LABS: Glucose, Whole Blood 73 mg/dL (60-115)
[2024-10-18] MEDS: Insulin Glargine,Hum.rec.anlog 100 UNIT/ML 10 ML VIAL 10 UNIT SUBCUT (09:45)
[2024-10-18 12:26] LABS: Glucose, Whole Blood 274 mg/dL (60-115)
--- NOTE | 2024-10-18 12:36 | P.PNPSI_ITS ---
Subjective Subjective Date of Service: 10/18/24 Reason For Visit: Suicidal Subjective Notes: Conditional Voluntary Healthcare Proxy: No Guardianship: No Medical Problems Affecting Mental Status: No Interim History: Can we decrease the Prozac to 40 mg? Review of meds. ECT consult is pending. Considering scheduled Olanzapine. Cultures returned. Diflucan ordered. Medication Compliance: Yes Side effects from medications: No Attending Groups: No Review of Systems Acute medical concerns: No Medical Review of Systems: unchanged Review of Systems Review of Systems sx of umm-diflucan ordered. reports some improvement of evulsion Mental Status Exam Mental Status Exam Patient Appearance: Fatigued Patient Orientation: Person, Place, Time and Situation Level of Consciousness: Alert Patient Behavior: Guarded and Talkative Mood Description: Depressed Affect Description: Flat Patient Cognition Impaired: No Ability to Follow Directions: Good Speech Pattern: Spontaneous Speech Memory Description: Episodic Impaired Hallucinations: None Delusions: Present Thought Process: Distracted and Rumination Thought Content: positive for Perseveration, positive for Thought Blocking and positive for Slowed Thinking Depressive Symptoms: Increased Fatigue, Low Self Esteem, Loss of Energy and Difficulty Concentrating Abnormal Motor Activity Signs and Symptoms: Restlessness Judgement: Fair Diagnostics Vital Signs (24Hr): Vital Signs - 24 hr 10/17/24 20:00 10/18/24 08:07 Temperature 98 F 97.3 F Pulse Rate 80 65 Respiratory Rate 16 Blood Pressure 113/66 95/50 L Pulse Oximetry 96 98 Oxygen Delivery Method Room Air Room Air BMI result Body Mass Index 25.1 Labs 10/14/24 12:38 10/15/24 08:22 Labs: Laboratory Results - last 48 hr 10/16/24 10/16/24 10/16/24 13:55 17:23 21:06 POC Glucose 480 H* 99 351 H* T. vaginalis (PCR) Bact vaginosis (PCR) C. krusei/glabrata (PCR) Umm group (PCR) 10/16/24 10/17/24 10/17/24 23:48 03:14 03:42 POC Glucose 171 H 41 L* 115 T. vaginalis (PCR) Bact vaginosis (PCR) C. krusei/glabrata (PCR) Umm group (PCR) 10/17/24 10/17/24 10/17/24 04:02 08:05 12:15 POC Glucose 178 H 362 H* 94 T. vaginalis (PCR) Bact vaginosis (PCR) C. krusei/glabrata (PCR) Umm group (PCR) 10/17/24 10/17/24 10/17/24 17:03 17:10 20:49 POC Glucose 209 H 140 H T. vaginalis (PCR) NOT DETECTED Bact vaginosis (PCR) NEGATIVE C. krusei/glabrata (PCR) NOT DETECTED Umm group (PCR) DETECTED A 10/17/24 10/18/24 10/18/24 23:47 08:11 12:21 POC Glucose 255 H 73 274 H T. vaginalis (PCR) Bact vaginosis (PCR) C. krusei/glabrata (PCR) Umm group (PCR) Medications Medications Current Medications Acetaminophen (Acetaminophen 325 Mg Tablet) 650 mg PO Q6H PRN PRN Reason: Headache/Pain, Scale 1-10 Al Hydroxide/Mg Hydroxide (Magnesium Hydrox/Alum Hydrox 30 Ml Oral.Susp) 30 ml PO Q6H PRN PRN Reason: Heartburn/Nausea Capsaicin (Capsaicin 0.025% Cream 60 Gm Tube) 1 appl TOPICAL QID PRN; Protocol PRN Reason: muscle aches Dextrose (Dextrose 50 % 25 Gm/50 Ml Syringe) 25 gm IVPUSH Q15M PRN; Protocol PRN Reason: per Hypoglycemia Standing Ord. Docusate Sodium (Docusate Sodium 100 Mg Capsule) 100 mg PO BEDTIME PRN PRN Reason: Constipation Fluoxetine HCl (Fluoxetine Hcl 20 Mg Capsule) 40 mg PO DAILY [facility] Last Admin: 10/18/24 09:46 Dose: 40 mg Glucose (Glucose Gel 15 Gm Gel..Gram.) 15 gm PO Q15M PRN; Protocol PRN Reason: per Hypoglycemia Standing Ord. Last Admin: 10/17/24 03:19 Dose: 15 gm Hydroxyzine HCl (Hydroxyzine Hcl 25 Mg Tablet) 25 mg PO Q6H PRN PRN Reason: mild anxiety Last Admin: 10/17/24 23:25 Dose: 25 mg Insulin Glargine (Insulin Glargine,Hum.Rec.Anlog 100 Unit/Ml 10 Ml Vial) 10 unit SUBCUT DAILY [facility] Last Admin: 10/18/24 09:45 Dose: 10 unit Insulin Glargine (Insulin Glargine,Hum.Rec.Anlog 100 Unit/Ml 10 Ml Vial) 5 unit SUBCUT BEDTIME [facility] Last Admin: 10/17/24 21:06 Dose: 5 unit Insulin Human Lispro (Insulin Lispro 100 Unit/Ml 3 Ml Vial) 0 unit SUBCUT QIDACHS [facility]PL[facility]ED [facility]; Protocol Last Admin: 10/18/24 08:21 Dose: Not Given Insulin Human Lispro (Insulin Lispro 100 Unit/Ml 3 Ml Vial) 5 unit SUBCUT QIDACHS [facility] On Hold: 10/17/24 03:26 Last Admin: 10/16/24 21:39 Dose: 5 unit Levothyroxine Sodium (Levothyroxine Sodium 150 Mcg Tablet) 150 mcg PO DAILY@0600 [facility] Last Admin: 10/18/24 06:27 Dose: 150 mcg Lorazepam (Lorazepam 0.5 Mg Tablet) 0.5 mg PO DAILY PRN PRN Reason: Anxiety Last Admin: 10/17/24 15:07 Dose: 0.5 mg Magnesium Hydroxide (Milk Of Magnesia 30 Ml Oral.Susp) 30 ml PO DAILY PRN PRN Reason: Constipation Last Admin: 10/15/24 12:22 Dose: 30 ml Nicotine Polacrilex (Nicotine Polacrilex 2 Mg Gum) 4 mg BUCCAL Q2H PRN PRN Reason: Nicotine Cravings Non-Formulary Medication (Evolocumab [Repatha Syringe]) 140 mg SUBCUT Q14D [facility] Olanzapine (Olanzapine 5 Mg Tablet) 5 mg PO BEDTIME PRN PRN Reason: sleep Polyethylene Glycol (Polyethylene Glycol 3350 17 Gm Powd.Pack) 17 gm PO DAILY PRN PRN Reason: Constipation Trazodone HCl (Trazodone Hcl 50 Mg Tablet) 50 mg PO BEDTIME MRX1 PRN PRN Reason: Insomnia Last Admin: 10/17/24 23:26 Dose: 50 mg Trazodone HCl (Trazodone Hcl 50 Mg Tablet) 50 mg PO BEDTIME [facility] Last Admin: 10/17/24 21:07 Dose: 50 mg Allergies Allergies Allergy/AdvReac Type Severity Reaction Status Date / Time Penicillins AdvReac Rash Verified 10/14/24 02:15 Sulfa (Sulfonamide AdvReac Rash Verified 10/14/24 02:15 Antibiotics) Assessment & Plan Assessment & Plan (1) MDD (major depressive disorder), recurrent, severe, with psychosis: Status: Acute Code(s): F33.3 - Major depressive disorder, recurrent, severe with psychotic symptoms (2) PTSD (post-traumatic stress disorder): Status: Acute Code(s): F43.10 - Post-traumatic stress disorder, unspecified Plan Patient is a 49 year old female with hx of MDD, MARTELL and PTSD who presented to ER with her d/t suicidal ideation secondary increased anxiety and racing thoughts. Plan: 15 minute safety checks continue home medications per records pt has hx of taking zyprexa TID. Start: Zyprexa 5mg PO bedtime. obtain collateral hospitalist consult for blood sugars encourage groups discharge planning 10/15: Keeping to self. Met with patient and , padma Campbell. Patient's brought in discharge summary from last inpatient hospitalization; placed in chart. He reports patient is usually not this forgetful and thought blocking . would like to set up family meeting with her nephrology social worker and provider on Wednesday to discuss treatment; he was educated to call unit on Wednesday to set up with primary team. Patient continues with some thought blocking during conversation. Presents less confused than yesterday. She did not recall meeting with T/W yesterday. Patient reports she believes she needs ECT; she has previously received 7 treatments at her last hospitalization and feels it helped her. Patient denies SI/HI/VH/AH. Continue tx plan. 10/16: continue current tx plan. 10/18: Diflucan x 1 dose ECT consult is pending Reason for continued inpatient stay Substantial Risk for: rapid decompensation Time Spent With Patient Time: Total time managing care of this patient today ____ minutes.
--- NOTE | 2024-10-18 12:40 | P.CONHOSP_ITS ---
History of Present Illness Data of Consult Service Date: 10/18/24 Primary Care Provider: Unknown Physician HPI Reason for consult: ? finger infection 49-year-old female with past medical history of type 1 diabetes, major depressive disorder, generalized anxiety disorder and PTSD who presented to the ED with suicidal ideation and increased anxiety. Patient seen for reports of question right ring finger infection. On exam patient noted to have artificial nails on all of her fingers, the right ring finger appears to have an artificial nail that was traumatically removed, patient is unable to tell me how. On exam the fingers pink, no warmth, no streaking, denies any fever or chills, small scabbed area noted to the right lateral nail bed, no drainage. She is otherwise alert and cooperative, answers questions. Denies any shortness of breath, dizziness lightheadedness or any other concerning symptoms. Review of Systems 2 Review of Systems: Denies any shortness of breath, chest pain, dizziness, lightheadedness, abdominal pain or discomfort, nausea vomiting or diarrhea PMFSH Social History Household Members: Spouse Housing: Apartment Do you presently have visiting nurse or other home services: No Patient Tobacco Use Status: Former Tobacco user Tobacco use type: Cigarette Second Hand Smoke Exposure: Yes Currently Displaying Signs/Symptoms of Drug Intoxication Withdrawal: No Have you been hit, kicked, punched, or otherwise hurt by someone within the past year? If so, by whom?: No Do you feel safe in your current relationship?: Yes Is there a partner from a previous relationship who is making you feel unsafe now?: No Are you made to feel afraid or neglected: No Advance Directives: No Advance Directives Information Provided: Yes Advance Directives on File: No Do you have thoughts of harming others: None Do you have a plan to hurt others: No Plan Recently lost weight without trying: No Nutrition Risks: No Nutritional Risk Patient : No : No Poor oral hygiene: No service: No Sexual orientation: Straight/Heterosexual Meds Allergies Allergy/AdvReac Type Severity Reaction Status Date / Time Penicillins AdvReac Rash Verified 10/14/24 02:15 Sulfa (Sulfonamide AdvReac Rash Verified 10/14/24 02:15 Antibiotics) Active Medications: Current Medications Acetaminophen (Acetaminophen 325 Mg Tablet) 650 mg PO Q6H PRN PRN Reason: Headache/Pain, Scale 1-10 Al Hydroxide/Mg Hydroxide (Magnesium Hydrox/Alum Hydrox 30 Ml Oral.Susp) 30 ml PO Q6H PRN PRN Reason: Heartburn/Nausea Capsaicin (Capsaicin 0.025% Cream 60 Gm Tube) 1 appl TOPICAL QID PRN; Protocol PRN Reason: muscle aches Dextrose (Dextrose 50 % 25 Gm/50 Ml Syringe) 25 gm IVPUSH Q15M PRN; Protocol PRN Reason: per Hypoglycemia Standing Ord. Docusate Sodium (Docusate Sodium 100 Mg Capsule) 100 mg PO BEDTIME PRN PRN Reason: Constipation Fluoxetine HCl (Fluoxetine Hcl 20 Mg Capsule) 40 mg PO DAILY [facility] Last Admin: 10/18/24 09:46 Dose: 40 mg Glucose (Glucose Gel 15 Gm Gel..Gram.) 15 gm PO Q15M PRN; Protocol PRN Reason: per Hypoglycemia Standing Ord. Last Admin: 10/17/24 03:19 Dose: 15 gm Hydroxyzine HCl (Hydroxyzine Hcl 25 Mg Tablet) 25 mg PO Q6H PRN PRN Reason: mild anxiety Last Admin: 10/17/24 23:25 Dose: 25 mg Insulin Glargine (Insulin Glargine,Hum.Rec.Anlog 100 Unit/Ml 10 Ml Vial) 10 unit SUBCUT DAILY [facility] Last Admin: 10/18/24 09:45 Dose: 10 unit Insulin Glargine (Insulin Glargine,Hum.Rec.Anlog 100 Unit/Ml 10 Ml Vial) 5 unit SUBCUT BEDTIME [facility] Last Admin: 10/17/24 21:06 Dose: 5 unit Insulin Human Lispro (Insulin Lispro 100 Unit/Ml 3 Ml Vial) 0 unit SUBCUT QIDACHS [facility]; Protocol Last Admin: 10/18/24 12:36 Dose: 6 unit Insulin Human Lispro (Insulin Lispro 100 Unit/Ml 3 Ml Vial) 5 unit SUBCUT QIDACHS [facility] On Hold: 10/17/24 03:26 Last Admin: 10/16/24 21:39 Dose: 5 unit Levothyroxine Sodium (Levothyroxine Sodium 150 Mcg Tablet) 150 mcg PO DAILY@0600 [facility] Last Admin: 10/18/24 06:27 Dose: 150 mcg Lorazepam (Lorazepam 0.5 Mg Tablet) 0.5 mg PO DAILY PRN PRN Reason: Anxiety Last Admin: 10/17/24 15:07 Dose: 0.5 mg Magnesium Hydroxide (Milk Of Magnesia 30 Ml Oral.Susp) 30 ml PO DAILY PRN PRN Reason: Constipation Last Admin: 10/15/24 12:22 Dose: 30 ml Nicotine Polacrilex (Nicotine Polacrilex 2 Mg Gum) 4 mg BUCCAL Q2H PRN PRN Reason: Nicotine Cravings Non-Formulary Medication (Evolocumab [Repatha Syringe]) 140 mg SUBCUT Q14D [facility] Olanzapine (Olanzapine 5 Mg Tablet) 5 mg PO BEDTIME PRN PRN Reason: sleep Polyethylene Glycol (Polyethylene Glycol 3350 17 Gm Powd.Pack) 17 gm PO DAILY PRN PRN Reason: Constipation Trazodone HCl (Trazodone Hcl 50 Mg Tablet) 50 mg PO BEDTIME MRX1 PRN PRN Reason: Insomnia Last Admin: 10/17/24 23:26 Dose: 50 mg Trazodone HCl (Trazodone Hcl 50 Mg Tablet) 50 mg PO BEDTIME [facility] Last Admin: 10/17/24 21:07 Dose: 50 mg Home Medications ?Medication ?Instructions ?Recorded ?Confirmed ?Last Taken ?Type evolocumab 140 mg/mL subcutaneous 140 mg subcut Q2W 10/14/24 Unknown History syringe (Repatha Syringe) fluoxetine 20 mg capsule 20 mg PO DAILY 10/14/2409/17 Unknown History fluoxetine 40 mg capsule 40 mg PO DAILY 10/14/2409/17 Unknown History levothyroxine 150 mcg tablet 150 mcg PO QAM 10/14/24 0 10/14/24 Unknown History lorazepam 0.5 mg tablet 0.5 mg PO DAILY PRN anxiety 10/14/24 10/14/24 Unknown History semaglutide (weight loss) 1 mg/0.5 mg subcut 10/14/24 Unknown History mL subcutaneous pen injector (Yael) trazodone 50 mg tablet 50 mg PO BEDTIME insomnia 10/14/24 Unknown History Physical Exam 2 Vital Signs and Narrative: Vital Signs: Last Vital Signs Temp 97.3 F 10/18/24 08:07 Pulse 65 10/18/24 08:07 Resp 16 10/17/24 20:00 BP 95/50 L 10/18/24 08:07 Pulse Ox 98 10/18/24 08:07 O2 Del Method Room Air 10/18/24 08:07 BMI result Body Mass Index 25.1 CONST: Alert and oriented, in NAD. Well nourished HEENT: Normocephalic, atraumatic, MMM, Eyes clear, Neck supple RESP: Lungs clear, RRR even and regular HEART:,RRR, S1, S2. No murmur, no edema GI:Abdomen Soft NT, ND. + BS times four :Deferred SKIN: Warm dry and intact, no visible lesions or rashes. Right 5th nail bed remove correction down. Area of pink, small scabbed lateral edge of now no warmth, no drainage NEURO:CN II-XII Intact bilaterally, Sensation intact. Speech clear PSYCH: Quiet and cooperative Results Labs 10/14/24 12:38 10/15/24 08:22 Labs: Laboratory Results - last 24 hr 10/17/24 10/17/24 10/17/24 17:03 17:10 20:49 POC Glucose 209 H 140 H T. vaginalis (PCR) NOT DETECTED Bact vaginosis (PCR) NEGATIVE C. krusei/glabrata (PCR) NOT DETECTED [facility] group (PCR) DETECTED A 10/17/24 10/18/24 10/18/24 23:47 08:11 12:21 POC Glucose 255 H 73 274 H T. vaginalis (PCR) Bact vaginosis (PCR) C. krusei/glabrata (PCR) Beatrice group (PCR) Assessment and Plan (1) Injury of nail bed of finger of right hand: Status: Acute Plan Right 5th finger nail injury No evidence of infection at this time, continue to monitor and notify provider if area worsens or drainage is present No indication for antibiotics at this time Continue topical bacitracin as needed Thank you for allowing me to participate in the care of this patient. Signing off at this time. Please reconsult of any acute concerns or issues arise
[2024-10-18 17:14] LABS: Glucose, Whole Blood 65 mg/dL (60-115)
[2024-10-18 20:00] VITALS: BP 160/73; PULSE 79; RESP 16; TEMP 37.1; O2SAT 98
[2024-10-18] MEDS: Insulin Glargine,Hum.rec.anlog 100 UNIT/ML 10 ML VIAL SUBCUT (21:31)
[2024-10-18 21:45] LABS: Glucose, Whole Blood 249 mg/dL (60-115)
[2024-10-19 02:09] LABS: Glucose, Whole Blood 46 mg/dL (60-115)
[2024-10-19] MEDS: Glucose Gel 15 GM GEL..GRAM. PO (02:12)
[2024-10-19 02:42] LABS: Glucose, Whole Blood 200 mg/dL (60-115)
[2024-10-19 03:08] LABS: Glucose, Whole Blood 275 mg/dL (60-115)
[2024-10-19 03:40] LABS: Glucose, Whole Blood 242 mg/dL (60-115)
[2024-10-19 07:00] VITALS: BMI 26.6
[2024-10-19 07:54] LABS: Glucose, Whole Blood 338 mg/dL (60-115)
[2024-10-19 08:00] VITALS: BP 122/67; PULSE 67; RESP 16; TEMP 36.1; O2SAT 100
[2024-10-19 08:22] LABS: Glucose, Whole Blood 333 mg/dL (60-115)
[2024-10-19] MEDS: Insulin Glargine,Hum.rec.anlog 100 UNIT/ML 10 ML VIAL 10 UNIT SUBCUT (08:48)
--- NOTE | 2024-10-19 10:03 | ECG_ITS ---
Test Reason : pre ect Blood Pressure : */* mmHG Vent. Rate : 75 BPM Atrial Rate : 75 BPM P-R Int : 128 ms QRS Dur : 76 ms QT Int : 412 ms P-R-T Axes : 44 -34 18 degrees QTcB Int : 460 ms Normal sinus rhythm Left axis deviation Low voltage QRS Possible Anterolateral infarct , age undetermined Abnormal ECG No previous ECGs available Referred By: Wilfredo Vasquez Electronically Signed By: Juan Dahl
--- NOTE | 2024-10-19 10:19 | HO.PSYCHPN ---
Subjective Subjective Date of Service: 10/19/24 Reason For Visit: Suicidal Subjective Notes: Conditional Voluntary Healthcare Proxy: No Guardianship: No Medical Problems Affecting Mental Status: No Interim History: Seen for ECT consult by Dr. Vasquez. Visable in milieu- withdrawn, ambivalent. I want to go home, I won't go to [facility], I want a medical admit here with a TV and a private room. I don't want to be on a psychiatric unit. Here is OK with all of you. Anxious, apprehensive and on edge most of the time. Refuses med changes. ECT helped before, it may be past time. Should I stay or leave? Medication Compliance: Yes Side effects from medications: No Attending Groups: No Review of Systems Acute medical concerns: No Medical Review of Systems: unchanged Review of Systems Review of Systems Pt denies today. Reports her finger evulsion is improved. Yeast sx have responded to a second dose of diflucan given by hospitalist team. Mental Status Exam Mental Status Exam Patient Appearance: Fatigued Patient Orientation: Person, Place, Time and Situation Level of Consciousness: Alert Patient Behavior: Appropriate and Talkative Mood Description: Depressed Affect Description: Calm Patient Cognition Impaired: No Ability to Follow Directions: Good Speech Pattern: Spontaneous Speech Memory Description: Episodic Impaired Hallucinations: None Delusions: Present Thought Process: Distracted and Rumination Thought Content: positive for Perseveration, positive for Thought Blocking, positive for Slowed Thinking and positive for Suicidal Ideation (denies) Depressive Symptoms: Increased Fatigue, Thoughts of /Suicide (denies), Low Self Esteem, Loss of Energy and Difficulty Concentrating Abnormal Motor Activity Signs and Symptoms: Restlessness Judgement: Fair Diagnostics Vital Signs (24Hr): Vital Signs - 24 hr 10/18/24 20:00 Temperature 98.7 F Pulse Rate 79 Respiratory Rate 16 Blood Pressure 160/73 H Pulse Oximetry 98 Oxygen Delivery Method Room Air BMI result Body Mass Index 25.1 Labs 10/14/24 12:38 10/19/24 22:38 Labs: Laboratory Results - last 48 hr 10/17/24 10/17/24 10/17/24 12:15 17:03 17:10 POC Glucose 94 209 H T. vaginalis (PCR) NOT DETECTED Bact vaginosis (PCR) NEGATIVE C. krusei/glabrata (PCR) NOT DETECTED [facility] group (PCR) DETECTED A 0910/17/24 10/18/24 20:49 23:47 08:11 POC Glucose 140 H 255 H 73 T. vaginalis (PCR) Bact vaginosis (PCR) C. krusei/glabrata (PCR) [facility]rice group (PCR) 10/18/24 10/18/24 10/18/24 12:21 17:10 21:21 POC Glucose 274 H 65 249 H T. vaginalis (PCR) Bact vaginosis (PCR) C. krusei/glabrata (PCR) [facility]rice group (PCR) 10/19/24 10/19/24 10/19/24 02:05 02:37 03:03 POC Glucose 46 L* 200 H 275 H T. vaginalis (PCR) Bact vaginosis (PCR) C. krusei/glabrata (PCR) [facility]rice group (PCR) 10/19/24 10/19/24 10/19/24 03:33 07:48 08:16 POC Glucose 242 H 338 H 333 H T. vaginalis (PCR) Bact vaginosis (PCR) C. krusei/glabrata (PCR) [facility]rice group (PCR) Medications Medications Current Medications Acetaminophen (Acetaminophen 325 Mg Tablet) 650 mg PO Q6H PRN PRN Reason: Headache/Pain, Scale 1-10 Al Hydroxide/Mg Hydroxide (Magnesium Hydrox/Alum Hydrox 30 Ml Oral.Susp) 30 ml PO Q6H PRN PRN Reason: Heartburn/Nausea Bacitracin (Bacitracin Oint 14 Gm Tube) 1 appl TOPICAL BID [facility]; Protocol Stop: 10/23/24 12:59 Last Admin: 10/19/24 09:36 Dose: Not Given Capsaicin (Capsaicin 0.025% Cream 60 Gm Tube) 1 appl TOPICAL QID PRN; Protocol PRN Reason: muscle aches Dextrose (Dextrose 50 % 25 Gm/50 Ml Syringe) 25 gm IVPUSH Q15M PRN; Protocol PRN Reason: per Hypoglycemia Standing Ord. Docusate Sodium (Docusate Sodium 100 Mg Capsule) 100 mg PO BEDTIME PRN PRN Reason: Constipation Fluoxetine HCl (Fluoxetine Hcl 20 Mg Capsule) 40 mg PO DAILY [facility] Last Admin: 10/19/24 08:51 Dose: 40 mg Glucose (Glucose Gel 15 Gm Gel..Gram.) 15 gm PO Q15M PRN; Protocol PRN Reason: per Hypoglycemia Standing Ord. Last Admin: 10/19/24 02:12 Dose: 15 gm Hydroxyzine HCl (Hydroxyzine Hcl 25 Mg Tablet) 25 mg PO Q6H PRN PRN Reason: mild anxiety Last Admin: 10/17/24 23:25 Dose: 25 mg Insulin Glargine (Insulin Glargine,Hum.Rec.Anlog 100 Unit/Ml 10 Ml Vial) 10 unit SUBCUT DAILY [facility] Last Admin: 10/19/24 08:48 Dose: 10 unit Insulin Glargine (Insulin Glargine,Hum.Rec.Anlog 100 Unit/Ml 10 Ml Vial) 5 unit SUBCUT BEDTIME [facility] Last Admin: 10/18/24 21:31 Dose: 5 unit Insulin Human Lispro (Insulin Lispro 100 Unit/Ml 3 Ml Vial) 0 unit SUBCUT QIDACHS [facility]; Protocol Last Admin: 10/19/24 08:49 Dose: 8 unit Insulin Human Lispro (Insulin Lispro 100 Unit/Ml 3 Ml Vial) 5 unit SUBCUT QIDACHS [facility] On Hold: 10/17/24 03:26 Last Admin: 10/16/24 21:39 Dose: 5 unit Levothyroxine Sodium (Levothyroxine Sodium 150 Mcg Tablet) 150 mcg PO DAILY@0600 [facility] Last Admin: 10/19/24 06:59 Dose: 150 mcg Lorazepam (Lorazepam 0.5 Mg Tablet) 0.5 mg PO DAILY PRN PRN Reason: Anxiety Last Admin: 10/19/24 04:24 Dose: 0.5 mg Magnesium Hydroxide (Milk Of Magnesia 30 Ml Oral.Susp) 30 ml PO DAILY PRN PRN Reason: Constipation Last Admin: 10/15/24 12:22 Dose: 30 ml Nicotine Polacrilex (Nicotine Polacrilex 2 Mg Gum) 4 mg BUCCAL Q2H PRN PRN Reason: Nicotine Cravings Non-Formulary Medication (Evolocumab [Repatha Syringe]) 140 mg SUBCUT Q14D [facility] Non-Formulary Medication (Vagisil) 1 dose TOPICAL BID [facility] Olanzapine (Olanzapine 5 Mg Tablet) 5 mg PO BEDTIME PRN PRN Reason: sleep Last Admin: 10/18/24 21:33 Dose: 5 mg Polyethylene Glycol (Polyethylene Glycol 3350 17 Gm Powd.Pack) 17 gm PO DAILY PRN PRN Reason: Constipation Trazodone HCl (Trazodone Hcl 50 Mg Tablet) 50 mg PO BEDTIME MRX1 PRN PRN Reason: Insomnia Last Admin: 10/17/24 23:26 Dose: 50 mg Trazodone HCl (Trazodone Hcl 50 Mg Tablet) 50 mg PO BEDTIME [facility] Last Admin: 10/18/24 21:30 Dose: 50 mg Allergies Allergies Allergy/AdvReac Type Severity Reaction Status Date / Time Penicillins AdvReac Rash Verified 10/14/24 02:15 Sulfa (Sulfonamide AdvReac Rash Verified 10/14/24 02:15 Antibiotics) Assessment & Plan Assessment & Plan (1) MDD (major depressive disorder), recurrent, severe, with psychosis: Status: Acute Code(s): F33.3 - Major depressive disorder, recurrent, severe with psychotic symptoms (2) PTSD (post-traumatic stress disorder): Status: Acute Code(s): F43.10 - Post-traumatic stress disorder, unspecified Plan Patient is a 49 year old female with hx of MDD, MARTELL and PTSD who presented to ER with her d/t suicidal ideation secondary increased anxiety and racing thoughts. Plan: 15 minute safety checks continue home medications per records pt has hx of taking zyprexa TID. Start: Zyprexa 5mg PO bedtime. obtain collateral hospitalist consult for blood sugars encourage groups discharge planning 10/15: Keeping to self. Met with patient and , padma Campbell. Patient's brought in discharge summary from last inpatient hospitalization; placed in chart. He reports patient is usually not this forgetful and thought blocking . would like to set up family meeting with her child welfare social worker and provider on Wednesday to discuss treatment; he was educated to call unit on Wednesday to set up with primary team. Patient continues with some thought blocking during conversation. Presents less confused than yesterday. She did not recall meeting with T/W yesterday. Patient reports she believes she needs ECT; she has previously received 7 treatments at her last hospitalization and feels it helped her. Patient denies SI/HI/VH/AH. Continue tx plan. 10/16: continue current tx plan. 10/18: Diflucan x 1 dose ECT consult is pending 10/19: ECT consult completed. Pt ambivalent, yet reports she feels it is needed Reason for continued inpatient stay Substantial Risk for: rapid decompensation Time Spent With Patient Time: Total time managing care of this patient today ____ minutes.
--- NOTE | 2024-10-19 10:34 | HO.ECT-CONS ---
History of Present Illness Data of Consult Service Date: 10/19/24 Primary Care Provider: Unknown Physician HPI Reason for consult: ECT Clearance 49-year-old female with past medical history of type 1 diabetes, major depressive disorder, Suicide attempts times two requiring hospitalizations last in 2023, MARTELL, Hypothyroidism, GERD, PTSD, CAD, status post OH in 2018 with 2 drug-eluting stents in LAD, ischemic cardiomyopathy history of gastric bypass surgery, iron deficiency anemia. Patient was also questionable history of a possible anoxic brain injury in 2011 due to suicide attempt noted in historical records. Patient is a good historian. On exam she reports that she feels well, denies any shortness of breath, chest pain, dizziness lightheadedness or any other concerning symptoms. She does report some vaginal itching and discharge similar to a yeast infection that she has had in the past, requesting a dose of Diflucan. Patient denies any history of brain tumors, hemorrhage or seizure disorder, denies recent OH, no history of cerebral aneurysm or stroke, no history of pulmonary disease, no history of retinal detachment were recent eye surgery and no other reported health conditions. Patient received ECT treatments January 2024 with no adverse events. She reports that she tolerated this well was supposed to continue as an outpatient but did not follow up. Patient reports a history of OH in 2018, is followed by Cardiology Dr. English at [facility]. She is maintained on Repatha and aspirin. Review of Systems Review of Systems: Denies any shortness of breath, chest pain, dizziness, lightheadedness, abdominal pain or discomfort, nausea vomiting or diarrhea PMFSH Social History Household Members: Spouse Housing: Apartment Do you presently have visiting nurse or other home services: No Patient Tobacco Use Status: Former Tobacco user Tobacco use type: Cigarette Second Hand Smoke Exposure: Yes Currently Displaying Signs/Symptoms of Drug Intoxication Withdrawal: No Have you been hit, kicked, punched, or otherwise hurt by someone within the past year? If so, by whom?: No Do you feel safe in your current relationship?: Yes Is there a partner from a previous relationship who is making you feel unsafe now?: No Are you made to feel afraid or neglected: No Advance Directives: No Advance Directives Information Provided: Yes Advance Directives on File: No Do you have thoughts of harming others: None Do you have a plan to hurt others: No Plan Recently lost weight without trying: No Nutrition Risks: No Nutritional Risk Patient : No : No Poor oral hygiene: No service: No Sexual orientation: Straight/Heterosexual Meds Allergies Allergy/AdvReac Type Severity Reaction Status Date / Time Penicillins AdvReac Rash Verified 10/14/24 02:15 Sulfa (Sulfonamide AdvReac Rash Verified 10/14/24 02:15 Antibiotics) Active Medications: Current Medications Acetaminophen (Acetaminophen 325 Mg Tablet) 650 mg PO Q6H PRN PRN Reason: Headache/Pain, Scale 1-10 Al Hydroxide/Mg Hydroxide (Magnesium Hydrox/Alum Hydrox 30 Ml Oral.Susp) 30 ml PO Q6H PRN PRN Reason: Heartburn/Nausea Bacitracin (Bacitracin Oint 14 Gm Tube) 1 appl TOPICAL BID [facility]; Protocol Stop: 10/23/24 12:59 Last Admin: 10/19/24 09:36 Dose: Not Given Capsaicin (Capsaicin 0.025% Cream 60 Gm Tube) 1 appl TOPICAL QID PRN; Protocol PRN Reason: muscle aches Dextrose (Dextrose 50 % 25 Gm/50 Ml Syringe) 25 gm IVPUSH Q15M PRN; Protocol PRN Reason: per Hypoglycemia Standing Ord. Docusate Sodium (Docusate Sodium 100 Mg Capsule) 100 mg PO BEDTIME PRN PRN Reason: Constipation Fluoxetine HCl (Fluoxetine Hcl 20 Mg Capsule) 40 mg PO DAILY [facility] Last Admin: 10/19/24 08:51 Dose: 40 mg Glucose (Glucose Gel 15 Gm Gel..Gram.) 15 gm PO Q15M PRN; Protocol PRN Reason: per Hypoglycemia Standing Ord. Last Admin: 10/19/24 02:12 Dose: 15 gm Hydroxyzine HCl (Hydroxyzine Hcl 25 Mg Tablet) 25 mg PO Q6H PRN PRN Reason: mild anxiety Last Admin: 10/17/24 23:25 Dose: 25 mg Insulin Glargine (Insulin Glargine,Hum.Rec.Anlog 100 Unit/Ml 10 Ml Vial) 10 unit SUBCUT DAILY [facility] Last Admin: 10/19/24 08:48 Dose: 10 unit Insulin Glargine (Insulin Glargine,Hum.Rec.Anlog 100 Unit/Ml 10 Ml Vial) 5 unit SUBCUT BEDTIME [facility] Last Admin: 10/18/24 21:31 Dose: 5 unit Insulin Human Lispro (Insulin Lispro 100 Unit/Ml 3 Ml Vial) 0 unit SUBCUT QIDACHS [facility]; Protocol Last Admin: 10/19/24 08:49 Dose: 8 unit Insulin Human Lispro (Insulin Lispro 100 Unit/Ml 3 Ml Vial) 5 unit SUBCUT QIDACHS [facility] On Hold: 10/17/24 03:26 Last Admin: 10/16/24 21:39 Dose: 5 unit Levothyroxine Sodium (Levothyroxine Sodium 150 Mcg Tablet) 150 mcg PO DAILY@0600 [facility] Last Admin: 10/19/24 06:59 Dose: 150 mcg Lorazepam (Lorazepam 0.5 Mg Tablet) 0.5 mg PO DAILY PRN PRN Reason: Anxiety Last Admin: 10/19/24 04:24 Dose: 0.5 mg Magnesium Hydroxide (Milk Of Magnesia 30 Ml Oral.Susp) 30 ml PO DAILY PRN PRN Reason: Constipation Last Admin: 10/15/24 12:22 Dose: 30 ml Nicotine Polacrilex (Nicotine Polacrilex 2 Mg Gum) 4 mg BUCCAL Q2H PRN PRN Reason: Nicotine Cravings Non-Formulary Medication (Evolocumab [Repatha Syringe]) 140 mg SUBCUT Q14D [facility] Non-Formulary Medication (Vagisil) 1 dose TOPICAL BID [facility] Olanzapine (Olanzapine 5 Mg Tablet) 5 mg PO BEDTIME PRN PRN Reason: sleep Last Admin: 10/18/24 21:33 Dose: 5 mg Polyethylene Glycol (Polyethylene Glycol 3350 17 Gm Powd.Pack) 17 gm PO DAILY PRN PRN Reason: Constipation Trazodone HCl (Trazodone Hcl 50 Mg Tablet) 50 mg PO BEDTIME MRX1 PRN PRN Reason: Insomnia Last Admin: 10/17/24 23:26 Dose: 50 mg Trazodone HCl (Trazodone Hcl 50 Mg Tablet) 50 mg PO BEDTIME [facility] Last Admin: 10/18/24 21:30 Dose: 50 mg Home Medications ?Medication ?Instructions ?Recorded ?Confirmed ?Last Taken ?Type evolocumab 140 mg/mL subcutaneous 140 mg subcut Q2W 10/14/24 10/14/24 Unknown History syringe (Repatha Syringe) fluoxetine 20 mg capsule 20 mg PO DAILY 10/14/24 10/14/24 Unknown History fluoxetine 40 mg capsule 40 mg PO DAILY 10/14/24 10/14/24 Unknown History levothyroxine 150 mcg tablet 150 mcg PO QAM 10/14/24 10/14/24 Unknown History lorazepam 0.5 mg tablet 0.5 mg PO DAILY PRN anxiety 10/14/24 10/14/24 Unknown History semaglutide (weight loss) 1 mg/0.5 mg subcut 10/14/24 Unknown History mL subcutaneous pen injector (Wegovy) trazodone 50 mg tablet 50 mg PO BEDTIME insomnia 10/14/24 10/14/24 Unknown History Physical Exam Vital Signs and Narrative: Vital Signs: Last Vital Signs Temp 98.7 F 10/18/24 20:00 Pulse 79 10/18/24 20:00 Resp 16 10/18/24 20:00 BP 160/73 H 10/18/24 20:00 Pulse Ox 98 10/18/24 20:00 O2 Del Method Room Air 10/18/24 20:00 BMI result Body Mass Index 25.1 CONST: Alert and oriented, in NAD. Well nourished HEENT: Normocephalic, atraumatic, MMM, Eyes clear, Neck supple RESP: Lungs clear, RRR even and regular HEART:,RRR, S1, S2. No murmur, no edema GI:Abdomen Soft NT, ND. + BS times four :Deferred SKIN: Warm dry and intact, no visible lesions or rashes NEURO:CN II-XII Intact bilaterally, Sensation intact. Speech clear PSYCH: Normal affect Results Labs 10/14/24 12:38 10/15/24 08:22 Labs: Laboratory Results - last 24 hr 10/18/24 10/18/24 10/18/24 12:21 17:10 21:21 POC Glucose 274 H 65 249 H 10/19/24 10/19/24 10/19/24 02:05 02:37 03:03 POC Glucose 46 L* 200 H 275 H 10/19/24 10/19/24 10/19/24 03:33 07:48 08:16 POC Glucose 242 H 338 H 333 H Assessment and Plan (1) Type 1 diabetes: Status: Acute Plan 49-year-old female with a past medical history of type 1 diabetes, major depressive disorder, Suicide attempts times two requiring hospitalizations last in 2023, MARTELL, Hypothyroidism, GERD, PTSD, CAD, status post OH in 2018 with 2 drug-eluting stents in LAD, ischemic cardiomyopathy history of gastric bypass surgery, iron deficiency anemia admitted to for treatment of MDD, MARTELL and PTSD. Patient is being seen for clearance for ECT treatment. MDD/GERD/SI Treatment per psychiatric team Plan for ECT treatment Type 1 diabetes Diagnosed at age 15. Previously wears a insulin pump with basal dosing. Recent A1c 7.2, followed closely by endocrinology as an outpatient Continue with Lantus b.i.d., lispro with meals. And sliding scale insulin Follow blood sugars, recommend diabetic snack at bedtime due to low blood sugars early a.m. Coronary artery disease/ischemic cardiomyopathy/status post OH 2018 with 2 MILKA Follows by Cardiology at [facility] Dr. Emilee English Continue aspirin and patient is on Repatha every 2 weeks Per historical documentation, patient is unable to tolerate beta-blockers. Recent lipid panel within normal limits EKG demonstrates normal sinus rhythm. Hypothyroidism Continue levothyroxine as ordered daily ECT risk stratification Patient without previous problems with anesthesia, has previously undergone ECT 01/2024 without adverse reactions RCRI 1 points due to previous history of OH, no further cardiac workup or treatment indicated at this time. Patient denies any past problems with anesthesia. EKG showing NSR, QTc 460, no evidence of ischemic changes Based on stated PMH, HPI, and physical exam, there are no There are no obvious contraindications to the planned procedure. Thank you for allowing me to participate in the care of this patient. Signing off at this time. Please reconsult of any acute concerns or issues arise
[2024-10-19 12:12] LABS: Glucose, Whole Blood 150 mg/dL (60-115)
[2024-10-19 17:03] LABS: Glucose, Whole Blood 253 mg/dL (60-115)
[2024-10-19 19:51] LABS: Glucose, Whole Blood 565 mg/dL (60-115)
--- NOTE | 2024-10-19 19:51 | PC.NURSE ---
Patient reported that she felt off and thought her blood sugar may be abnormal. RN checked blood sugar. POC was 565. Pt stated I knew I ate too much, I didnt mean to. They will probably have to cancel ECT now . RN messaged Loli Babin, web content developer and Dayton Celestin, Hospitalist to advise them of blood sugar as pt needs to be NPO after midnight for ECT in the morning. RN will give scheduled Humalog insulin as well as Lispro sliding scale. Waiting to hear back from providers to determine if extra coverage should be given. Will give accordingly and continue to monitor patient.
[2024-10-19 20:00] VITALS: BP 136/63; PULSE 78; RESP 16; TEMP 37.1; O2SAT 97
--- NOTE | 2024-10-19 20:18 | PC.NURSE ---
Insulin Humalog 5mg scheduled at bedtime and sliding scale given as scheduled. No extra coverage needed, per Dr Dayton Celestin
[2024-10-19] MEDS: Insulin Glargine,Hum.rec.anlog 100 UNIT/ML 10 ML VIAL SUBCUT (20:30)
[2024-10-19 21:36] LABS: Glucose, Whole Blood 405 mg/dL (60-115)
--- NOTE | 2024-10-19 21:50 | PC.NURSE ---
pts re-check blood sugar was critically high at 405 after receiving insulin humalog 5 and lispro 10. pt reports that she ate a turkey sandwich with mustard. rn alerted hospitalist alyce royal of blood sugar level.
--- NOTE | 2024-10-19 22:18 | PC.NURSE ---
RN ALERTED HOSPITALIST TERENCE BALDWIN OF BLOOD SUGAR LEVEL 405. PT IS NPO AFTER MIDNIGHT FOR ECT IN THE MORNING. RN MADE PARESH BALDWIN AWARE THAT PT RECEIVED INSULIN LISPRO 10MG PER ORIGINAL SLIDING SCALE ORDER WELL SCHEDULED 5 MG OF INSULIN HUMALOG. PER PARESH BALDWIN, MODIFIED SLIDING SCALE WAS ORDERED. PARESH BALDWIN INSTRUCTED RN TO FOLLOW RN TO FOLLOW MODIFIED SLIDING SCALE AND GIVE PT 12 UNITS OF INSULIN LISPRO. HOSPITALIST INSTRUCTED RN TO RE-CHECK BLOOD SUGAR IN 2 HOURS AFTER GIVING 12 UNITS OF LISPRO.
[2024-10-19 22:58] LABS: Anion Gap 14 (12-20); Blood Urea Nitrogen 13 mg/dL (9-16); Calcium 8.8 mg/dL (8.4-10.2); Carbon Dioxide 27 mmol/L (22-29); Chloride 103 mmol/L (96-108); Creatinine Clr Calc Pharmacy 58.8; Estimated Glomerular Filt Rate > 60; Potassium 3.8 mmol/L (3.3-5.1); Sodium 140 mmol/L (135-145)
[2024-10-19 23:44] LABS: Glucose, Whole Blood 85 mg/dL (60-115)
--- NOTE | 2024-10-19 23:45 | PC.NURSE ---
BLOOD SUGAR RE-CHECK AT 2340 IS 85. RN MADE HOSPITALIST PAULETTE BALDWIN AWARE. PT IS HAVING A CARTON OF MILK AND A TURKEY SANDWICH PRIOR TO BEING NPO AT MIDNIGHT FOR ECT.
[2024-10-20 00:20] LABS: Glucose, Whole Blood 78 mg/dL (60-115)
[2024-10-20 01:20] LABS: Glucose, Whole Blood 101 mg/dL (60-115)
[2024-10-20 02:38] LABS: Glucose, Whole Blood 259 mg/dL (60-115)
[2024-10-20 07:10] LABS: Glucose, Whole Blood 128 mg/dL (60-115)
[2024-10-20 07:56] VITALS: BP 116/55; PULSE 72; TEMP 36.9; O2SAT 99
[2024-10-20 07:57] LABS: Glucose, Whole Blood 167 mg/dL (60-115)
[2024-10-20 08:09] VITALS: BP 116/55; PULSE 72; TEMP 36.9; O2SAT 99
[2024-10-20] MEDS: Aspirin Enteric Coated 81 MG TABLET.DR PO (08:53)
--- NOTE | 2024-10-20 10:34 | HO.PSYCHPN ---
Subjective Subjective Date of Service: 10/20/24 Reason For Visit: Suicidal Subjective Notes: Conditional Voluntary Interim History: Why didn't I have ECT Reviewed blood sugar issues preventing ECT this a.m. Pt is being seen by our hospitalist team- they are adjusting insulin times to help pt maintain more stable blood sugar levels throughout the day along with sliding scale. They report this will take some time. Pt has DMI, since she believes age 14. Discussed with pt and she agrees with this plan. Anxious today- wanting to leave, go to [facility] [place], to a medical unit- with a TV and a private room I don't belong here. Pt is in the milieu-she responds today to frequent brief supportive interactions- at the mid afternoon contact- I am ok here-people are nice here. She smiles when she gives this report. Medication Compliance: Yes Side effects from medications: No Attending Groups: Intermittent Review of Systems Acute medical concerns: Yes Unstable DMI Medical Review of Systems: changed Review of Systems: ongoing, with insulin changes Review of Systems Review of Systems Labile POC values Mental Status Exam Mental Status Exam Patient Appearance: Fatigued Patient Orientation: Person, Place, Time and Situation Level of Consciousness: Alert Patient Behavior: Appropriate, Talkative and Good Eye Contact Mood Description: Depressed and Anxious Affect Description: Calm Patient Cognition Impaired: No Ability to Follow Directions: Good Speech Pattern: Spontaneous Speech Memory Description: Episodic Impaired Hallucinations: None Delusions: Present Thought Process: Distracted and Rumination Thought Content: positive for Perseveration, positive for Thought Blocking and positive for Slowed Thinking Depressive Symptoms: Increased Fatigue, Low Self Esteem, Loss of Energy and Difficulty Concentrating Abnormal Motor Activity Signs and Symptoms: Restlessness Judgement: Fair Judgement and Insight: Denied active SI was able to state she felt ECT had been helpful with some retrograde amnesia for the time in the hospital Diagnostics Vital Signs (24Hr): Vital Signs - 24 hr 10/19/24 20:00 10/20/24 07:56 10/20/24 08:09 Temperature 98.8 F 98.4 F 98.4 F Pulse Rate 78 72 72 Respiratory Rate 16 Blood Pressure 136/63 116/55 L 116/55 L Pulse Oximetry 97 99 99 Oxygen Delivery Method Room Air Room Air Room Air BMI result Body Mass Index 26.6 Labs 10/14/24 12:38 10/19/24 22:38 Labs: Laboratory Results - last 48 hr 10/18/24 10/18/24 10/18/24 12:21 17:10 21:21 Sodium Potassium Chloride Carbon Dioxide Anion Gap BUN Creatinine Estim Creat Clear Calc Estimated GFR POC Glucose 274 H 65 249 H Random Glucose Calcium 10/19/24 10/19/24 10/19/24 02:05 02:37 03:03 Sodium Potassium Chloride Carbon Dioxide Anion Gap BUN Creatinine Estim Creat Clear Calc Estimated GFR POC Glucose 46 L* 200 H 275 H Random Glucose Calcium 10/19/24 10/19/24 10/19/24 03:33 07:48 08:16 Sodium Potassium Chloride Carbon Dioxide Anion Gap BUN Creatinine Estim Creat Clear Calc Estimated GFR POC Glucose 242 H 338 H 333 H Random Glucose Calcium 10/19/24 10/19/24 10/19/24 12:09 16:59 19:45 Sodium Potassium Chloride Carbon Dioxide Anion Gap BUN Creatinine Estim Creat Clear Calc Estimated GFR POC Glucose 150 H 253 H 565 H* Random Glucose Calcium 10/19/24 10/19/24 10/19/24 21:31 22:38 23:39 Sodium 140 Potassium 3.8 Chloride 103 Carbon Dioxide 27 Anion Gap 14 BUN 13 Creatinine 0.93 Estim Creat Clear Calc 58.8 Estimated GFR > 60 POC Glucose 405 H* 85 Random Glucose 152 H Calcium 8.8 10/20/24 10/20/24 10/20/24 00:16 01:15 02:34 Sodium Potassium Chloride Carbon Dioxide Anion Gap BUN Creatinine Estim Creat Clear Calc Estimated GFR POC Glucose 78 101 259 H Random Glucose Calcium 10/20/24 10/20/24 07:05 07:53 Sodium Potassium Chloride Carbon Dioxide Anion Gap BUN Creatinine Estim Creat Clear Calc Estimated GFR POC Glucose 128 H 167 H Random Glucose Calcium Medications Medications Current Medications Acetaminophen (Acetaminophen 325 Mg Tablet) 650 mg PO Q6H PRN PRN Reason: Headache/Pain, Scale 1-10 Al Hydroxide/Mg Hydroxide (Magnesium Hydrox/Alum Hydrox 30 Ml Oral.Susp) 30 ml PO Q6H PRN PRN Reason: Heartburn/Nausea Aspirin (Aspirin Enteric Coated 81 Mg Tablet.) 81 mg PO DAILY [facility] Last Admin: 10/20/24 08:53 Dose: 81 mg Bacitracin (Bacitracin Oint 14 Gm Tube) 1 appl TOPICAL BID [facility]; Protocol Stop: 10/23/24 12:59 Last Admin: 10/20/24 08:56 Dose: Not Given Capsaicin (Capsaicin 0.025% Cream 60 Gm Tube) 1 appl TOPICAL QID PRN; Protocol PRN Reason: muscle aches Dextrose (Dextrose 50 % 25 Gm/50 Ml Syringe) 25 gm IVPUSH Q15M PRN; Protocol PRN Reason: per Hypoglycemia Standing Ord. Docusate Sodium (Docusate Sodium 100 Mg Capsule) 100 mg PO BEDTIME PRN PRN Reason: Constipation Fluoxetine HCl (Fluoxetine Hcl 20 Mg Capsule) 40 mg PO DAILY [facility] Last Admin: 10/20/24 08:54 Dose: 40 mg Glucose (Glucose Gel 15 Gm Gel..Gram.) 15 gm PO Q15M PRN; Protocol PRN Reason: per Hypoglycemia Standing Ord. Last Admin: 10/19/24 02:12 Dose: 15 gm Hydroxyzine HCl (Hydroxyzine Hcl 25 Mg Tablet) 25 mg PO Q6H PRN PRN Reason: mild anxiety Last Admin: 10/19/24 22:28 Dose: 25 mg Insulin Glargine (Insulin Glargine,Hum.Rec.Anlog 100 Unit/Ml 10 Ml Vial) 15 unit SUBCUT DAILY [facility] Insulin Human Lispro (Insulin Lispro 100 Unit/Ml 3 Ml Vial) 0 unit SUBCUT TIDAC [facility]; Protocol Levothyroxine Sodium (Levothyroxine Sodium 150 Mcg Tablet) 150 mcg PO DAILY@0600 [facility] Last Admin: 10/20/24 07:23 Dose: 150 mcg Lorazepam (Lorazepam 0.5 Mg Tablet) 0.5 mg PO DAILY PRN PRN Reason: Anxiety Last Admin: 10/19/24 04:24 Dose: 0.5 mg Magnesium Hydroxide (Milk Of Magnesia 30 Ml Oral.Susp) 30 ml PO DAILY PRN PRN Reason: Constipation Last Admin: 10/15/24 12:22 Dose: 30 ml Nicotine Polacrilex (Nicotine Polacrilex 2 Mg Gum) 4 mg BUCCAL Q2H PRN PRN Reason: Nicotine Cravings Non-Formulary Medication (Evolocumab [Repatha Syringe]) 140 mg SUBCUT Q14D [facility] Olanzapine (Olanzapine 5 Mg Tablet) 5 mg PO BEDTIME PRN PRN Reason: sleep Last Admin: 10/18/24 21:33 Dose: 5 mg Polyethylene Glycol (Polyethylene Glycol 3350 17 Gm Powd.Pack) 17 gm PO DAILY PRN PRN Reason: Constipation Trazodone HCl (Trazodone Hcl 50 Mg Tablet) 50 mg PO BEDTIME MRX1 PRN PRN Reason: Insomnia Last Admin: 10/19/24 22:28 Dose: 50 mg Trazodone HCl (Trazodone Hcl 50 Mg Tablet) 50 mg PO BEDTIME [facility] Last Admin: 10/19/24 20:30 Dose: 50 mg Allergies Allergies Allergy/AdvReac Type Severity Reaction Status Date / Time Penicillins AdvReac Rash Verified 10/14/24 02:15 Sulfa (Sulfonamide AdvReac Rash Verified 10/14/24 02:15 Antibiotics) Assessment & Plan Assessment & Plan (1) Type 1 diabetes: Status: Acute Code(s): E10.9 - Type 1 diabetes mellitus without complications (2) MDD (major depressive disorder), recurrent, severe, with psychosis: Status: Acute Code(s): F33.3 - Major depressive disorder, recurrent, severe with psychotic symptoms Assessment and Plan: 10/20: ECT planned for 10/23. Discussed with pt her initial request to make olanzapine prn and increase in difficulty since admit. Will restart olanzapine at 10 mg HS. She agrees with this plan and we discussed ongoing assessment to have her on as slim a regime as possible. (3) PTSD (post-traumatic stress disorder): Status: Acute Code(s): F43.10 - Post-traumatic stress disorder, unspecified Plan 49-year-old female with a past medical history of type 1 diabetes, major depressive disorder, Suicide attempts times two requiring hospitalizations last in 2023, MARTELL, Hypothyroidism, GERD, PTSD, CAD, status post WI in 2018 with 2 drug-eluting stents in LAD, ischemic cardiomyopathy history of gastric bypass surgery, iron deficiency anemia admitted to for treatment of MDD, MARTELL and PTSD. Patient is being seen for clearance for ECT treatment. MDD/GERD/SI Treatment per psychiatric team Plan for ECT treatment Type 1 diabetes Diagnosed at age 15. Previously wears a insulin pump with basal dosing. Recent A1c 7.2, followed closely by endocrinology as an outpatient Continue with Lantus b.i.d., lispro with meals. And sliding scale insulin Follow blood sugars, recommend diabetic snack at bedtime due to low blood sugars early a.m. Coronary artery disease/ischemic cardiomyopathy/status post WI 2018 with 2 MILKA Follows by Cardiology at [facility] Dr. Emilee English Continue aspirin and patient is on Repatha every 2 weeks Per historical documentation, patient is unable to tolerate beta-blockers. Recent lipid panel within normal limits EKG demonstrates normal sinus rhythm. Hypothyroidism Continue levothyroxine as ordered daily ECT risk stratification Patient without previous problems with anesthesia, has previously undergone ECT 01/2024 without adverse reactions RCRI 1 points due to previous history of WI, no further cardiac workup or treatment indicated at this time. Patient denies any past problems with anesthesia. EKG showing NSR, QTc 460, no evidence of ischemic changes Based on stated PMH, HPI, and physical exam, there are no There are no obvious contraindications to the planned procedure. Thank you for allowing me to participate in the care of this patient. Signing off at this time. Please reconsult of any acute concerns or issues arise Reason for continued inpatient stay Substantial Risk for: rapid decompensation and med/psych decompensation Time Spent With Patient Time: Total time managing care of this patient today ____ minutes.
[2024-10-20 12:27] LABS: Glucose, Whole Blood 439 mg/dL (60-115)
[2024-10-20] MEDS: Insulin Glargine,Hum.rec.anlog 100 UNIT/ML 10 ML VIAL 10 UNIT SUBCUT (12:30)
--- NOTE | 2024-10-20 13:45 | P.CNPS_ITS ---
History of Present Illness Date of Service: 10/19/2024 Chief Complaint: Suicidal Reason for Consult: ect consideration Requesting physician: Kay Mejia Discussed with referring provider: Yes Sources of Information: patient interviewed and chart reviewed Additional Sources of Information: [facility] [place] HPI Narrative: The patient is a 49-year-old female referred to this hospital from the [facility] emergency room secondary to severe depression requesting consideration of ECT. Her last hospitalization was at [facility] [place] The for about 6 weeks from December 24 to February 06. At that time she had had course of ECT and was treated with fluoxetine up to 80 mg and mirtazapine 30 mg. The patient had made a serious overdose with ingestion of benzodiazepines and hydroxyzine and another suicide attempt with insulin when hospitalized on the medical floor. 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 Prior to this admission the patient was on fluoxetine 60 mg Ativan 1 mg b.i.d. 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 PRN she was also on Wegovy levothyroxine and NovoLog insulin. Patient does have racing thoughts impulsive suicidal thoughts prior to admission and has been increasingly paranoid with intermittent auditory hallucinations. Past Psychiatric History: hx of multiple inpatient psychiatric hospitalizations hx of 2 SA via OD on medications and overuse of insulin. Outpatient prescriber: Dr. Lawrence ([facility]) Therapist: Litzy ([place]) hx of SIB via head banging. hx of receiving ECT. Medical Evaluation Reviewed: Yes History of PR and ASHD did tolerate recent ECT treatment without medical difficulty Personal & Social History: Patient is lives with her works full-time at [employer] [facility] Medical History (Updated 10/20/24 @ 16:27 by Wilfredo Vasquez MD) History of myocardial infarction Family History: Lives with . no kids. 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 Some college. Positive history of suicide attempts on her father's side Social History: Father: depression Mother: anxiety Substance History: Reportedly none Trauma History: yes Diagnostics Vital Signs (24Hr): Vital Signs - 24 hr 10/19/24 20:00 10/20/24 07:56 10/20/24 08:09 Temperature 98.8 F 98.4 F 98.4 F Pulse Rate 78 72 72 Respiratory Rate 16 Blood Pressure 136/63 116/55 L 116/55 L Pulse Oximetry 97 99 99 Oxygen Delivery Method Room Air Room Air Room Air BMI result Body Mass Index 26.6 Labs 10/14/24 12:38 10/19/24 22:38 Labs: Laboratory Results - last 48 hr 10/18/24 10/18/24 10/19/24 17:10 21:21 02:05 Sodium Potassium Chloride Carbon Dioxide Anion Gap BUN Creatinine Estim Creat Clear Calc Estimated GFR POC Glucose 65 249 H 46 L* Random Glucose Calcium 10/19/24 10/19/24 10/19/24 02:37 03:03 03:33 Sodium Potassium Chloride Carbon Dioxide Anion Gap BUN Creatinine Estim Creat Clear Calc Estimated GFR POC Glucose 200 H 275 H 242 H Random Glucose Calcium 10/19/24 10/19/24 10/19/24 07:48 08:16 12:09 Sodium Potassium Chloride Carbon Dioxide Anion Gap BUN Creatinine Estim Creat Clear Calc Estimated GFR POC Glucose 338 H 333 H 150 H Random Glucose Calcium 10/19/24 10/19/24 10/19/24 16:59 19:45 21:31 Sodium Potassium Chloride Carbon Dioxide Anion Gap BUN Creatinine Estim Creat Clear Calc Estimated GFR POC Glucose 253 H 565 H* 405 H* Random Glucose Calcium 10/19/24 10/19/24 10/20/24 22:38 23:39 00:16 Sodium 140 Potassium 3.8 Chloride 103 Carbon Dioxide 27 Anion Gap 14 BUN 13 Creatinine 0.93 Estim Creat Clear Calc 58.8 Estimated GFR > 60 POC Glucose 85 78 Random Glucose 152 H Calcium 8.8 10/20/24 10/20/24 10/20/24 01:15 02:34 07:05 Sodium Potassium Chloride Carbon Dioxide Anion Gap BUN Creatinine Estim Creat Clear Calc Estimated GFR POC Glucose 101 259 H 128 H Random Glucose Calcium 10/20/24 10/20/24 07:53 12:18 Sodium Potassium Chloride Carbon Dioxide Anion Gap BUN Creatinine Estim Creat Clear Calc Estimated GFR POC Glucose 167 H 439 H* Random Glucose Calcium Mental Status Exam Mental Status Exam Patient Appearance: Fatigued Patient Orientation: Person, Place, Time and Situation Level of Consciousness: Alert Patient Behavior: Appropriate and Talkative Behavior Comments: Odd affect noted inappropriate affect at times not matching what is described as mood smiling quite cooperative to the interview Mood Description: Depressed Affect Description: Calm Patient Cognition Impaired: No Ability to Follow Directions: Good Speech Pattern: Spontaneous Speech Memory Description: Episodic Impaired Hallucinations: None Delusions: Present Thought Process: Distracted and Rumination Thought Content: positive for Perseveration, positive for Thought Blocking and positive for Slowed Thinking Depressive Symptoms: Increased Fatigue, Low Self Esteem, Loss of Energy and Difficulty Concentrating Abnormal Motor Activity Signs and Symptoms: Restlessness Judgement: Fair Judgement and Insight: Denied active SI was able to state she felt ECT had been helpful with some retrograde amnesia for the time in the hospital Medications Medications Current Medications Acetaminophen (Acetaminophen 325 Mg Tablet) 650 mg PO Q6H PRN PRN Reason: Headache/Pain, Scale 1-10 Al Hydroxide/Mg Hydroxide (Magnesium Hydrox/Alum Hydrox 30 Ml Oral.Susp) 30 ml PO Q6H PRN PRN Reason: Heartburn/Nausea Aspirin (Aspirin Enteric Coated 81 Mg Tablet.Dr) 81 mg PO DAILY [facility] Last Admin: 10/20/24 08:53 Dose: 81 mg Bacitracin (Bacitracin Oint 14 Gm Tube) 1 appl TOPICAL BID [facility]; Protocol Stop: 10/23/24 12:59 Last Admin: 10/20/24 08:56 Dose: Not Given Capsaicin (Capsaicin 0.025% Cream 60 Gm Tube) 1 appl TOPICAL QID PRN; Protocol PRN Reason: muscle aches Dextrose (Dextrose 50 % 25 Gm/50 Ml Syringe) 25 gm IVPUSH Q15M PRN; Protocol PRN Reason: per Hypoglycemia Standing Ord. Docusate Sodium (Docusate Sodium 100 Mg Capsule) 100 mg PO BEDTIME PRN PRN Reason: Constipation Fluoxetine HCl (Fluoxetine Hcl 20 Mg Capsule) 40 mg PO DAILY [facility] Last Admin: 10/20/24 08:54 Dose: 40 mg Glucose (Glucose Gel 15 Gm Gel..Gram.) 15 gm PO Q15M PRN; Protocol PRN Reason: per Hypoglycemia Standing Ord. Last Admin: 10/19/24 02:12 Dose: 15 gm Hydroxyzine HCl (Hydroxyzine Hcl 25 Mg Tablet) 25 mg PO Q6H PRN PRN Reason: mild anxiety Last Admin: 10/19/24 22:28 Dose: 25 mg Insulin Glargine (Insulin Glargine,Hum.Rec.Anlog 100 Unit/Ml 10 Ml Vial) 15 unit SUBCUT DAILY [facility] Insulin Human Lispro (Insulin Lispro 100 Unit/Ml 3 Ml Vial) 0 unit SUBCUT TIDAC [facility]; Protocol Last Admin: 10/20/24 12:58 Dose: Not Given Levothyroxine Sodium (Levothyroxine Sodium 150 Mcg Tablet) 150 mcg PO DAILY@0600 [facility] Last Admin: 10/20/24 07:23 Dose: 150 mcg Lorazepam (Lorazepam 0.5 Mg Tablet) 0.5 mg PO DAILY PRN PRN Reason: Anxiety Last Admin: 10/19/24 04:24 Dose: 0.5 mg Magnesium Hydroxide (Milk Of Magnesia 30 Ml Oral.Susp) 30 ml PO DAILY PRN PRN Reason: Constipation Last Admin: 10/15/24 12:22 Dose: 30 ml Nicotine Polacrilex (Nicotine Polacrilex 2 Mg Gum) 4 mg BUCCAL Q2H PRN PRN Reason: Nicotine Cravings Non-Formulary Medication (Evolocumab [Repatha Syringe]) 140 mg SUBCUT Q14D [facility] Olanzapine (Olanzapine 5 Mg Tablet) 5 mg PO BEDTIME PRN PRN Reason: sleep Last Admin: 10/18/24 21:33 Dose: 5 mg Polyethylene Glycol (Polyethylene Glycol 3350 17 Gm Powd.Pack) 17 gm PO DAILY PRN PRN Reason: Constipation Trazodone HCl (Trazodone Hcl 50 Mg Tablet) 50 mg PO BEDTIME MRX1 PRN PRN Reason: Insomnia Last Admin: 10/19/24 22:28 Dose: 50 mg Trazodone HCl (Trazodone Hcl 50 Mg Tablet) 50 mg PO BEDTIME [facility] Last Admin: 10/19/24 20:30 Dose: 50 mg Allergies Allergies Allergy/AdvReac Type Severity Reaction Status Date / Time Penicillins AdvReac Rash Verified 10/14/24 02:15 Sulfa (Sulfonamide AdvReac Rash Verified 10/14/24 02:15 Antibiotics) Assessment & Plan Assessment & Plan (1) MDD (major depressive disorder), recurrent, severe, with psychosis: Status: Acute Code(s): F33.3 - Major depressive disorder, recurrent, severe with psychotic symptoms (2) PTSD (post-traumatic stress disorder): Status: Acute Code(s): F43.10 - Post-traumatic stress disorder, unspecified (3) Type 1 diabetes: Status: Acute Code(s): E10.9 - Type 1 diabetes mellitus without complications Plan Patient is a 49-year-old female with history of mood disorder does have thought blocking impulsive suicidality would consider mixed states in the differential. Patient with impulsive suicidality if has not previously been considered lithium would be a consideration which has been shown to decrease impulsive suicidality but would not start while patient is strongly advocating for ECT. Patient reportedly had a good response and is willing to step down to continuation/maintenance ECT outpatient at [facility] given patient's disorganization question mixed states would also strongly consider scheduled antipsychotic. Patient [place] regarding olanzapine with her diabetes would consider Elvis/Mel. Patient wishes to pursue ECT will trying get ECT history from [facility] especially given that she has a history of coronary artery disease and history of PR but apparently did tolerate treatment without difficulty. Labs EKG medical history reviewed and discussed with hospitalist service Monitor safety given patient's history of impulsive suicidality Total time managing care of this patient today __60__ minutes.
[2024-10-20 17:01] LABS: Glucose, Whole Blood 440 mg/dL (60-115)
--- NOTE | 2024-10-20 17:16 | PM.EVENT ---
Event Note Date of Service: 10/20/24 Event Note: Given patient's labile blood sugars and symptomatic severe hypoglycemia, we are going to give her lispro 12 units once per SS Rest of the rx per primary team Time Spent With Patient Time: Total time managing care of this patient today ____ minutes.
[2024-10-20 20:00] VITALS: BP 121/58; PULSE 100; RESP 16; TEMP 36.7; O2SAT 98
[2024-10-20 20:55] LABS: Glucose, Whole Blood 166 mg/dL (60-115)
[2024-10-21 08:16] VITALS: BP 103/51; PULSE 70; RESP 16; TEMP 36.1; O2SAT 96
[2024-10-21 08:19] LABS: Glucose, Whole Blood 128 mg/dL (60-115)
--- NOTE | 2024-10-21 08:29 | HO.PSYCHPN ---
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 She agrees with ECT which she said she has had before and thinks it was helpful. Mental Status Exam Mental Status Exam Patient Appearance: Fatigued Patient Orientation: Person, Place, Time and Situation Level of Consciousness: Alert Patient Behavior: Appropriate, Cooperative and Good Eye Contact Behavior Comments: Odd affect, smiling in an odd way and incongruent with reported depression Mood Description: Depressed Affect Description: Calm and Constricted (Odd) Patient Cognition Impaired: No Ability to Follow Directions: Fair Speech Pattern: Spontaneous Speech (But starts and stops sentences) and Soft-Spoken Memory Description: Episodic Impaired Hallucinations: None Thought Process: Distracted Thought Content: positive for Perseveration, positive for Thought Blocking and positive for Slowed Thinking Depressive Symptoms: Increased Fatigue, Low Self Esteem, Loss of Energy and Difficulty Concentrating Judgement and Insight: Impaired Diagnostics Vital Signs (24Hr): Vital Signs - 24 hr 10/20/24 20:00 10/21/24 08:16 Temperature 98.1 F 97.0 F Pulse Rate 100 70 Respiratory Rate 16 16 Blood Pressure 121/58 L 103/51 L Pulse Oximetry 98 96 Oxygen Delivery Method Room Air Room Air BMI result Body Mass Index 26.6 Labs 10/14/24 12:38 10/19/24 22:38 Labs: Laboratory Results - last 48 hr 10/19/24 10/19/24 10/19/24 12:09 16:59 19:45 Sodium Potassium Chloride Carbon Dioxide Anion Gap BUN Creatinine Estim Creat Clear Calc Estimated GFR POC Glucose 150 H 253 H 565 H* Random Glucose Calcium 10/19/24 10/19/24 10/19/24 21:31 22:38 23:39 Sodium 140 Potassium 3.8 Chloride 103 Carbon Dioxide 27 Anion Gap 14 BUN 13 Creatinine 0.93 Estim Creat Clear Calc 58.8 Estimated GFR > 60 POC Glucose 405 H* 85 Random Glucose 152 H Calcium 8.8 10/20/24 10/20/24 10/20/24 00:16 01:15 02:34 Sodium Potassium Chloride Carbon Dioxide Anion Gap BUN Creatinine Estim Creat Clear Calc Estimated GFR POC Glucose 78 101 259 H Random Glucose Calcium 10/20/24 10/20/24 10/20/24 07:05 07:53 12:18 Sodium Potassium Chloride Carbon Dioxide Anion Gap BUN Creatinine Estim Creat Clear Calc Estimated GFR POC Glucose 128 H 167 H 439 H* Random Glucose Calcium 10/20/24 10/20/24 10/21/24 16:56 20:51 08:08 Sodium Potassium Chloride Carbon Dioxide Anion Gap BUN Creatinine Estim Creat Clear Calc Estimated GFR POC Glucose 440 H* 166 H 128 H Random Glucose Calcium Medications Medications Current Medications Acetaminophen (Acetaminophen 325 Mg Tablet) 650 mg PO Q6H PRN PRN Reason: Headache/Pain, Scale 1-10 Al Hydroxide/Mg Hydroxide (Magnesium Hydrox/Alum Hydrox 30 Ml Oral.Susp) 30 ml PO Q6H PRN PRN Reason: Heartburn/Nausea Aspirin (Aspirin Enteric Coated 81 Mg Tablet.) 81 mg PO DAILY [facility] Last Admin: 10/20/24 08:53 Dose: 81 mg Bacitracin (Bacitracin Oint 14 Gm Tube) 1 appl TOPICAL BID [facility]; Protocol Stop: 10/23/24 12:59 Last Admin: 10/20/24 22:15 Dose: Not Given Capsaicin (Capsaicin 0.025% Cream 60 Gm Tube) 1 appl TOPICAL QID PRN; Protocol PRN Reason: muscle aches Dextrose (Dextrose 50 % 25 Gm/50 Ml Syringe) 25 gm IVPUSH Q15M PRN; Protocol PRN Reason: per Hypoglycemia Standing Ord. Docusate Sodium (Docusate Sodium 100 Mg Capsule) 100 mg PO BEDTIME PRN PRN Reason: Constipation Fluoxetine HCl (Fluoxetine Hcl 20 Mg Capsule) 40 mg PO DAILY [facility] Last Admin: 10/20/24 08:54 Dose: 40 mg Glucose (Glucose Gel 15 Gm Gel..Gram.) 15 gm PO Q15M PRN; Protocol PRN Reason: per Hypoglycemia Standing Ord. Last Admin: 10/19/24 02:12 Dose: 15 gm Hydroxyzine HCl (Hydroxyzine Hcl 25 Mg Tablet) 25 mg PO Q6H PRN PRN Reason: mild anxiety Last Admin: 10/19/24 22:28 Dose: 25 mg Insulin Glargine (Insulin Glargine,Hum.Rec.Anlog 100 Unit/Ml 10 Ml Vial) 15 unit SUBCUT DAILY [facility] Insulin Human Lispro (Insulin Lispro 100 Unit/Ml 3 Ml Vial) 0 unit SUBCUT TIDAC [facility]; Protocol Last Admin: 10/20/24 17:27 Dose: 12 unit Levothyroxine Sodium (Levothyroxine Sodium 150 Mcg Tablet) 150 mcg PO DAILY@0600 [facility] Last Admin: 10/21/24 06:26 Dose: 150 mcg Lorazepam (Lorazepam 0.5 Mg Tablet) 0.5 mg PO DAILY PRN PRN Reason: Anxiety Last Admin: 10/20/24 14:21 Dose: 0.5 mg Magnesium Hydroxide (Milk Of Magnesia 30 Ml Oral.Susp) 30 ml PO DAILY PRN PRN Reason: Constipation Last Admin: 10/15/24 12:22 Dose: 30 ml Nicotine Polacrilex (Nicotine Polacrilex 2 Mg Gum) 4 mg BUCCAL Q2H PRN PRN Reason: Nicotine Cravings Non-Formulary Medication (Evolocumab [Repatha Syringe]) 140 mg SUBCUT Q14D [facility] Olanzapine (Olanzapine 10 Mg Tablet) 10 mg PO BEDTIME [facility] Last Admin: 10/20/24 21:14 Dose: 10 mg Polyethylene Glycol (Polyethylene Glycol 3350 17 Gm Powd.Pack) 17 gm PO DAILY PRN PRN Reason: Constipation Trazodone HCl (Trazodone Hcl 50 Mg Tablet) 50 mg PO BEDTIME MRX1 PRN PRN Reason: Insomnia Last Admin: 10/19/24 22:28 Dose: 50 mg Trazodone HCl (Trazodone Hcl 50 Mg Tablet) 50 mg PO BEDTIME [facility] Last Admin: 10/20/24 21:14 Dose: 50 mg Allergies Allergies Allergy/AdvReac Type Severity Reaction Status Date / Time Penicillins AdvReac Rash Verified 10/14/24 02:15 Sulfa (Sulfonamide AdvReac Rash Verified 10/14/24 02:15 Antibiotics) Assessment & Plan Assessment & Plan (1) MDD (major depressive disorder), recurrent, severe, with psychosis: Status: Acute Code(s): F33.3 - Major depressive disorder, recurrent, severe with psychotic symptoms (2) PTSD (post-traumatic stress disorder): Status: Acute Code(s): F43.10 - Post-traumatic stress disorder, unspecified Plan Patient is a 49 year old female with hx of MDD, MARTELL and PTSD who presented to ER with her d/t suicidal ideation secondary increased anxiety and racing thoughts. Plan: 15 minute safety checks continue home medications per records pt has hx of taking zyprexa TID. Start: Zyprexa 5mg PO bedtime. obtain collateral hospitalist consult for blood sugars encourage groups discharge planning Hospital course: 10/15: Keeping to self. Met with patient and , Adrian, present. Patient's brought in discharge summary from last inpatient hospitalization; placed in chart. He reports patient is usually not this forgetful and thought blocking . would like to set up family meeting with her social worker masters and provider on Wednesday to discuss treatment; he was educated to call unit on Wednesday to set up with primary team. Patient continues with some thought blocking during conversation. Presents less confused than yesterday. She did not recall meeting with T/W yesterday. Patient reports she believes she needs ECT; she has previously received 7 treatments at her last hospitalization and feels it helped her. Patient denies SI/HI/VH/AH. Continue tx plan. 10/16: continue current tx plan. 10/18: Diflucan x 1 dose ECT consult is pending 10/19: ECT consult completed. Pt ambivalent, yet reports she feels it is needed 10/21 Patient reports that she is depressed but then says her depression is less because she is relaxed; but then she says her depression is not better; patient with odd affect, sitting, smiling at customs entry writer and with some trouble fully articulating her thoughts. She agrees with ECT which she said she has had before and thinks it was helpful. -proceed with plan for ECT Patient educated on: diagnosis, medication risk/benefits and ECT Informed Consent: understands and further education needed Reason for continued inpatient stay Substantial Risk for: inability to function and rapid decompensation Time Spent With Patient Time: Total time managing care of this patient today ____ minutes.
[2024-10-21] MEDS: Insulin Glargine,Hum.rec.anlog 100 UNIT/ML 10 ML VIAL 15 UNIT SUBCUT (08:32)
[2024-10-21] MEDS: Aspirin Enteric Coated 81 MG TABLET.DR PO (08:34)
[2024-10-21 12:10] LABS: Glucose, Whole Blood 219 mg/dL (60-115)
[2024-10-21 17:19] LABS: Glucose, Whole Blood 135 mg/dL (60-115)
[2024-10-21 19:54] LABS: Glucose, Whole Blood 175 mg/dL (60-115)
[2024-10-21 20:00] VITALS: BP 104/60; PULSE 83; RESP 16; TEMP 37.2; O2SAT 97
[2024-10-22 03:10] LABS: Glucose, Whole Blood 237 mg/dL (60-115)
[2024-10-22 07:52] LABS: Glucose, Whole Blood 257 mg/dL (60-115)
[2024-10-22 08:12] VITALS: BP 98/48; PULSE 75; RESP 18; TEMP 36.2; O2SAT 95
[2024-10-22] MEDS: Aspirin Enteric Coated 81 MG TABLET.DR PO (08:35)
[2024-10-22] MEDS: Insulin Glargine,Hum.rec.anlog 100 UNIT/ML 10 ML VIAL 15 UNIT SUBCUT (08:37)
--- NOTE | 2024-10-22 09:47 | P.PNPSI_ITS ---
Subjective Subjective Date of Service: 10/22/24 Reason For Visit: Suicidal Interim History: Met with patient; discussed with team Patient little difficult with which to engage. Starts and stops sentences, smiling; she says that she smells alcohol on the unit. Patient slept; says she is ready for ECT tomorrow. Mental Status Exam Mental Status Exam Patient Appearance: Fatigued Patient Orientation: Person, Place, Time and Situation Level of Consciousness: Alert Patient Behavior: Appropriate, Cooperative and Good Eye Contact Behavior Comments: Odd affect, smiling in an odd way and incongruent with reported depression Mood Description: Depressed Affect Description: Calm and Constricted (Odd) Patient Cognition Impaired: No Ability to Follow Directions: Fair Speech Pattern: Spontaneous Speech (But starts and stops sentences) and Soft- Spoken Memory Description: Episodic Impaired Hallucinations: None Thought Process: Distracted Thought Content: positive for Perseveration, positive for Thought Blocking and positive for Slowed Thinking Depressive Symptoms: Increased Fatigue, Low Self Esteem, Loss of Energy and Difficulty Concentrating Judgement and Insight: Impaired Diagnostics Vital Signs (24Hr): Vital Signs - 24 hr 10/21/24 20:00 10/22/24 08:12 Temperature 98.9 F 97.2 F Pulse Rate 83 75 Respiratory Rate 16 18 Blood Pressure 104/60 98/48 L Pulse Oximetry 97 95 Oxygen Delivery Method Room Air Room Air BMI result Body Mass Index 26.6 Labs 10/14/24 12:38 10/19/24 22:38 Labs: Laboratory Results - last 48 hr 10/20/24 10/20/24 10/20/24 12:18 16:56 20:51 POC Glucose 439 H* 440 H* 166 H 10/21/24 10/21/24 10/21/24 08:08 12:06 17:11 POC Glucose 128 H 219 H 135 H 10/21/24 10/22/24 10/22/24 19:39 03:06 07:43 POC Glucose 175 H 237 H 257 H Medications Medications Current Medications Acetaminophen (Acetaminophen 325 Mg Tablet) 650 mg PO Q6H PRN PRN Reason: Headache/Pain, Scale 1-10 Al Hydroxide/Mg Hydroxide (Magnesium Hydrox/Alum Hydrox 30 Ml Oral.Susp) 30 ml PO Q6H PRN PRN Reason: Heartburn/Nausea Aspirin (Aspirin Enteric Coated 81 Mg Tablet.) 81 mg PO DAILY FARRAH Last Admin: 10/22/24 08:35 Dose: 81 mg Bacitracin (Bacitracin Oint 14 Gm Tube) 1 appl TOPICAL BID FARRAH; Protocol Stop: 10/23/24 12:59 Last Admin: 10/22/24 08:41 Dose: 1 appl Capsaicin (Capsaicin 0.025% Cream 60 Gm Tube) 1 appl TOPICAL QID PRN; Protocol PRN Reason: muscle aches Dextrose (Dextrose 50 % 25 Gm/50 Ml Syringe) 25 gm IVPUSH Q15M PRN; Protocol PRN Reason: per Hypoglycemia Standing Ord. Docusate Sodium (Docusate Sodium 100 Mg Capsule) 100 mg PO BEDTIME PRN PRN Reason: Constipation Fluoxetine HCl (Fluoxetine Hcl 20 Mg Capsule) 40 mg PO DAILY [facility] Last Admin: 10/22/24 08:35 Dose: 40 mg Glucose (Glucose Gel 15 Gm Gel..Gram.) 15 gm PO Q15M PRN; Protocol PRN Reason: per Hypoglycemia Standing Ord. Last Admin: 10/19/24 02:12 Dose: 15 gm Hydroxyzine HCl (Hydroxyzine Hcl 25 Mg Tablet) 25 mg PO Q6H PRN PRN Reason: mild anxiety Last Admin: 10/21/24 22:02 Dose: 25 mg Insulin Glargine (Insulin Glargine,Hum.Rec.Anlog 100 Unit/Ml 10 Ml Vial) 15 unit SUBCUT DAILY [facility] Last Admin: 10/22/24 08:37 Dose: 15 unit Insulin Human Lispro (Insulin Lispro 100 Unit/Ml 3 Ml Vial) 0 unit SUBCUT TIDAC [facility]; Protocol Last Admin: 10/22/24 08:36 Dose: 8 unit Levothyroxine Sodium (Levothyroxine Sodium 150 Mcg Tablet) 150 mcg PO DAILY@0600 [facility] Last Admin: 10/22/24 06:21 Dose: 150 mcg Lorazepam (Lorazepam 0.5 Mg Tablet) 0.5 mg PO DAILY PRN PRN Reason: Anxiety Last Admin: 10/20/24 14:21 Dose: 0.5 mg Magnesium Hydroxide (Milk Of Magnesia 30 Ml Oral.Susp) 30 ml PO DAILY PRN PRN Reason: Constipation Last Admin: 10/15/24 12:22 Dose: 30 ml Nicotine Polacrilex (Nicotine Polacrilex 2 Mg Gum) 4 mg BUCCAL Q2H PRN PRN Reason: Nicotine Cravings Non-Formulary Medication (Evolocumab [Repatha Syringe]) 140 mg SUBCUT Q14D FARRAH Olanzapine (Olanzapine 10 Mg Tablet) 10 mg PO BEDTIME FARRAH Last Admin: 10/21/24 20:41 Dose: 10 mg Polyethylene Glycol (Polyethylene Glycol 3350 17 Gm Powd.Pack) 17 gm PO DAILY PRN PRN Reason: Constipation Trazodone HCl (Trazodone Hcl 50 Mg Tablet) 50 mg PO BEDTIME MRX1 PRN PRN Reason: Insomnia Last Admin: 10/21/24 22:02 Dose: 50 mg Trazodone HCl (Trazodone Hcl 50 Mg Tablet) 50 mg PO BEDTIME FARRAH Last Admin: 10/21/24 20:41 Dose: 50 mg Allergies Allergies Allergy/AdvReac Type Severity Reaction Status Date / Time Penicillins AdvReac Rash Verified 10/14/24 02:15 Sulfa (Sulfonamide AdvReac Rash Verified 10/14/24 02:15 Antibiotics) Assessment & Plan Assessment & Plan (1) Type 1 diabetes: Status: Acute Code(s): E10.9 - Type 1 diabetes mellitus without complications (2) MDD (major depressive disorder), recurrent, severe, with psychosis: Status: Acute Code(s): F33.3 - Major depressive disorder, recurrent, severe with psychotic symptoms Assessment and Plan: 10/20: ECT planned for 10/23. Discussed with pt her initial request to make olanzapine prn and increase in difficulty since admit. Will restart olanzapine at 10 mg HS. She agrees with this plan and we discussed ongoing assessment to have her on as slim a regime as possible. (3) PTSD (post-traumatic stress disorder): Status: Acute Code(s): F43.10 - Post-traumatic stress disorder, unspecified Plan 49-year-old female with a past medical history of type 1 diabetes, major depressive disorder, Suicide attempts times two requiring hospitalizations last in 2023, MARTELL, Hypothyroidism, GERD, PTSD, CAD, status post AR in 2018 with 2 drug-eluting stents in LAD, ischemic cardiomyopathy history of gastric bypass surgery, iron deficiency anemia admitted to for treatment of MDD, MARTELL and PTSD. Patient is being seen for clearance for ECT treatment. Patient is a 49 year old female with hx of MDD, MARTELL and PTSD who presented to ER with her d/t suicidal ideation secondary increased anxiety and racing thoughts. Hospital course: 10/15: Keeping to self. Met with patient and , Adrian, present. Patient's brought in discharge summary from last inpatient hospitalization; placed in chart. He reports patient is usually not this forgetful and thought blocking . would like to set up family meeting with her social work instructor and provider on Wednesday to discuss treatment; he was educated to call unit on Wednesday to set up with primary team. Patient continues with some thought blocking during conversation. Presents less confused than yesterday. She did not recall meeting with T/W yesterday. Patient reports she believes she needs ECT; she has previously received 7 treatments at her last hospitalization and feels it helped her. Patient denies SI/HI/VH/AH. Continue tx plan. 10/16: continue current tx plan. 10/18: Diflucan x 1 dose ECT consult is pending 10/19: ECT consult completed. Pt ambivalent, yet reports she feels it is needed 10/21 Patient reports that she is depressed but then says her depression is less because she is relaxed; but then she says her depression is not better; patient with odd affect, sitting, smiling at promotion writer and with some trouble fully articulating her thoughts. She agrees with ECT which she said she has had before and thinks it was helpful. -proceed with plan for ECT 10/22 Patient little difficult with which to engage.? Starts and stops sentences, smiling;? she says that she smells alcohol on the unit.? Patient slept; says she is ready for ECT tomorrow Plan: 15 minute safety checks continue home medications per records pt has hx of taking zyprexa TID. Start: Zyprexa 5mg PO bedtime. obtain collateral hospitalist consult for blood sugars encourage groups discharge planning Problems: Type 1 diabetes Diagnosed at age 15. Previously wears a insulin pump with basal dosing. Recent A1c 7.2, followed closely by endocrinology as an outpatient Continue with Lantus b.i.d., lispro with meals. And sliding scale insulin Follow blood sugars, recommend diabetic snack at bedtime due to low blood sugars early a.m. Coronary artery disease/ischemic cardiomyopathy/status post AR 2018 with 2 MILKA Follows by Cardiology at [facility] Dr. Emilee English Continue aspirin and patient is on Repatha every 2 weeks Per historical documentation, patient is unable to tolerate beta-blockers. Recent lipid panel within normal limits EKG demonstrates normal sinus rhythm. Hypothyroidism Continue levothyroxine as ordered daily ECT risk stratification Patient without previous problems with anesthesia, has previously undergone ECT 01/2024 without adverse reactions RCRI 1 points due to previous history of AR, no further cardiac workup or treatment indicated at this time. Patient denies any past problems with anesthesia. EKG showing NSR, QTc 460, no evidence of ischemic changes Based on stated PMH, HPI, and physical exam, there are no There are no obvious contraindications to the planned procedure. Thank you for allowing me to participate in the care of this patient. Signing off at this time. Please reconsult of any acute concerns or issues arise Patient educated on: diagnosis, medication risk/benefits and ECT Informed Consent: understands and further education needed Reason for continued inpatient stay Substantial Risk for: inability to function and rapid decompensation Time Spent With Patient Time: Total time managing care of this patient today ____ minutes.
[2024-10-22 12:17] LABS: Glucose, Whole Blood 81 mg/dL (60-115)
[2024-10-22 17:11] LABS: Glucose, Whole Blood 518 mg/dL (60-115)
[2024-10-22 18:44] LABS: Glucose, Whole Blood 335 mg/dL (60-115)
[2024-10-22 20:00] VITALS: BP 96/54; PULSE 86; RESP 15; TEMP 37.3; O2SAT 98
[2024-10-22 20:24] LABS: Glucose, Whole Blood 546 mg/dL (60-115)
[2024-10-22 22:16] LABS: Glucose, Whole Blood 171 mg/dL (60-115)
[2024-10-23] VITALS (9 sets, daily range): BP systolic 107–169; BP diastolic 56–78; PULSE 67–80; RESP 14–21; TEMP 36.2–37.4; O2SAT 91–98
[2024-10-23] MEDS: Glucose Gel 15 GM GEL..GRAM. PO (00:07)
[2024-10-23 00:18] LABS: Glucose, Whole Blood 40 mg/dL (60-115)
[2024-10-23 00:30] LABS: Glucose, Whole Blood 98 mg/dL (60-115)
[2024-10-23 00:56] LABS: Glucose, Whole Blood 78 mg/dL (60-115)
[2024-10-23 01:16] LABS: Glucose, Whole Blood 143 mg/dL (60-115)
[2024-10-23 04:04] LABS: Glucose, Whole Blood 115 mg/dL (60-115)
[2024-10-23 06:18] LABS: Glucose, Whole Blood 197 mg/dL (60-115)
--- NOTE | 2024-10-23 06:44 | P.CONAN_ITS ---
HPI - Anesthesia Eval Consult details Narrative: chronic continuous self destructive behaivior [facility] Active Problems Active Problems: All Active Problems (Updated 10/20/24 @ 16:27 by Wilfredo Vasquez MD) Injury of nail bed of finger of right hand (Acute) PTSD (post-traumatic stress disorder) (Acute) MDD (major depressive disorder), recurrent, severe, with psychosis (Acute) Type 1 diabetes (Acute) Depression (Acute) Anxiety (Acute) Suicidal ideation (Acute) Past Medical History Medical History (Updated 10/20/24 @ 16:27 by Wilfredo Vasquez MD) History of myocardial infarction Family History Family history of problems with anesthesia: No Surgical History History of Problems with Anesthesia: No Social History Social History Household Members: Spouse Housing: Apartment Do you presently have visiting nurse or other home services: No Patient Tobacco Use Status: Former Tobacco user Tobacco use type: Cigarette Second Hand Smoke Exposure: Yes Currently Displaying Signs/Symptoms of Drug Intoxication Withdrawal: No Have you been hit, kicked, punched, or otherwise hurt by someone within the past year? If so, by whom?: No Do you feel safe in your current relationship?: Yes Is there a partner from a previous relationship who is making you feel unsafe now?: No Are you made to feel afraid or neglected: No Advance Directives: No Advance Directives Information Provided: Yes Advance Directives on File: No Do you have thoughts of harming others: None Do you have a plan to hurt others: No Plan Recently lost weight without trying: No Nutrition Risks: No Nutritional Risk Patient : No : No Poor oral hygiene: No service: No Sexual orientation: Straight/Heterosexual Meds Allergies Allergy/AdvReac Type Severity Reaction Status Date / Time Penicillins AdvReac Rash Verified 10/14/24 02:15 Sulfa (Sulfonamide AdvReac Rash Verified 10/14/24 02:15 Antibiotics) Active Medications: Current Medications Acetaminophen (Acetaminophen 325 Mg Tablet) 650 mg PO Q6H PRN PRN Reason: Headache/Pain, Scale 1-10 Al Hydroxide/Mg Hydroxide (Magnesium Hydrox/Alum Hydrox 30 Ml Oral.Susp) 30 ml PO Q6H PRN PRN Reason: Heartburn/Nausea Aspirin (Aspirin Enteric Coated 81 Mg Tablet.Dr) 81 mg PO DAILY [facility] Last Admin: 10/22/24 08:35 Dose: 81 mg Bacitracin (Bacitracin Oint 14 Gm Tube) 1 appl TOPICAL BID [facility]; Protocol Stop: 10/23/24 12:59 Last Admin: 10/22/24 22:29 Dose: Not Given Capsaicin (Capsaicin 0.025% Cream 60 Gm Tube) 1 appl TOPICAL QID PRN; Protocol PRN Reason: muscle aches Dextrose (Dextrose 50 % 25 Gm/50 Ml Syringe) 25 gm IVPUSH Q15M PRN; Protocol PRN Reason: per Hypoglycemia Standing Ord. Docusate Sodium (Docusate Sodium 100 Mg Capsule) 100 mg PO BEDTIME PRN PRN Reason: Constipation Fluoxetine HCl (Fluoxetine Hcl 20 Mg Capsule) 40 mg PO DAILY [facility] Last Admin: 10/22/24 08:35 Dose: 40 mg Glucose (Glucose Gel 15 Gm Gel..Gram.) 15 gm PO Q15M PRN; Protocol PRN Reason: per Hypoglycemia Standing Ord. Last Admin: 10/23/24 00:07 Dose: 15 gm Hydroxyzine HCl (Hydroxyzine Hcl 25 Mg Tablet) 25 mg PO Q6H PRN PRN Reason: mild anxiety Last Admin: 10/21/24 22:02 Dose: 25 mg Insulin Glargine (Insulin Glargine,Hum.Rec.Anlog 100 Unit/Ml 10 Ml Vial) 15 unit SUBCUT DAILY [facility] Last Admin: 10/22/24 08:37 Dose: 15 unit Insulin Human Lispro (Insulin Lispro 100 Unit/Ml 3 Ml Vial) 0 unit SUBCUT TIDAC [facility]; Protocol Last Admin: 10/22/24 17:14 Dose: 12 unit Levothyroxine Sodium (Levothyroxine Sodium 150 Mcg Tablet) 150 mcg PO DAILY@0600 [facility] Last Admin: 10/23/24 06:25 Dose: 150 mcg Lorazepam (Lorazepam 0.5 Mg Tablet) 0.5 mg PO DAILY PRN PRN Reason: Anxiety Last Admin: 10/22/24 12:54 Dose: 0.5 mg Magnesium Hydroxide (Milk Of Magnesia 30 Ml Oral.Susp) 30 ml PO DAILY PRN PRN Reason: Constipation Last Admin: 10/15/24 12:22 Dose: 30 ml Nicotine Polacrilex (Nicotine Polacrilex 2 Mg Gum) 4 mg BUCCAL Q2H PRN PRN Reason: Nicotine Cravings Non-Formulary Medication (Evolocumab [Repatha Syringe]) 140 mg SUBCUT Q14D [facility] Olanzapine (Olanzapine 10 Mg Tablet) 10 mg PO BEDTIME [facility] Last Admin: 10/22/24 22:28 Dose: 10 mg Polyethylene Glycol (Polyethylene Glycol 3350 17 Gm Powd.Pack) 17 gm PO DAILY PRN PRN Reason: Constipation Simethicone (Simethicone 80 Mg Tab.Chew) 80 mg PO QIDWMHS PRN PRN Reason: flatulance Trazodone HCl (Trazodone Hcl 50 Mg Tablet) 50 mg PO BEDTIME MRX1 PRN PRN Reason: Insomnia Last Admin: 10/21/24 22:02 Dose: 50 mg Trazodone HCl (Trazodone Hcl 50 Mg Tablet) 50 mg PO BEDTIME [facility] Last Admin: 10/22/24 22:29 Dose: 50 mg Home Medications ?Medication ?Instructions ?Recorded ?Confirmed ?Last Taken ?Type evolocumab 140 mg/mL subcutaneous 140 mg subcut Q2W 10/14/24 Unknown History syringe (Repatha Syringe) fluoxetine 20 mg capsule 20 mg PO DAILY 10/14/2409/17 Unknown History fluoxetine 40 mg capsule 40 mg PO DAILY 10/14/2409/17 Unknown History levothyroxine 150 mcg tablet 150 mcg PO QAM 10/14/24 0 10/14/24 Unknown History lorazepam 0.5 mg tablet 0.5 mg PO DAILY PRN anxiety 10/14/24 10/14/24 Unknown History semaglutide (weight loss) 1 mg/0.5 mg subcut 10/14/24 Unknown History mL subcutaneous pen injector (Wegovy) trazodone 50 mg tablet 50 mg PO BEDTIME insomnia 10/14/24 Unknown History Exam Height,Weight and Vital Signs: Height 4 ft 11 in Weight 131 lb 13.383 oz Last Vital Signs Temp 99.1 F 10/22/24 20:00 Pulse 86 10/22/24 20:00 Resp 15 10/22/24 20:00 BP 96/54 L 10/22/24 20:00 Pulse Ox 98 10/22/24 20:00 O2 Del Method Room Air 10/22/24 08:12 Pertinent Lab Results Pertinent Lab Results: Laboratory Tests 08/10/14/24 10/14/24 02:08 07:43 11:03 WBC RBC Hgb Hct MCV MCH MCHC RDW Plt Count MPV Immature Gran % (Auto) Neut % (Auto) Lymph % (Auto) [place] % (Auto) Eos % (Auto) Baso % (Auto) Lymph # (Auto) [place] # (Auto) Eos # (Auto) Baso # (Auto) Abs Immat Gran (auto) Absolute Neuts (auto) Absolute Nucleated RBC Nucleated RBC % (auto) VBG pH VBG pCO2 VBG pO2 VBG HCO3 VBG O2 Saturation VBG Base Excess Sodium Potassium Chloride Carbon Dioxide Anion Gap BUN Creatinine Estim Creat Clear Calc Estimated GFR POC Glucose 346 H 392 H* 556 H* Random Glucose Estimat Average Glucose Hemoglobin A1c % Calcium Total Bilirubin AST ALT Alkaline Phosphatase Total Protein Albumin Triglycerides Cholesterol LDL Cholesterol, Calc HDL Cholesterol Beta-Hydroxybutyrate Urine Color Urine Appearance Urine pH Ur Specific [place] Urine Protein Urine Glucose (UA) Urine Ketones Urine Blood Urine Nitrite Ur Leukocyte Esterase T. vaginalis (PCR) Bact vaginosis (PCR) C. krusei/glabrata (PCR) Beatrice group (PCR) 10/14/24 10/14/24 10/14/24 12:09 12:38 12:48 WBC 11.7 H RBC 3.94 L Hgb 12.8 Hct 36.7 L MCV 93.1 MCH 32.5 MCHC 34.9 RDW 12.8 Plt Count 193 MPV 9.9 Immature Gran % (Auto) 0.4 Neut % (Auto) 71.5 Lymph % (Auto) 20.1 [place] % (Auto) 4.7 Eos % (Auto) 2.4 Baso % (Auto) 0.9 Lymph # (Auto) 2.4 [place] # (Auto) 0.6 Eos # (Auto) 0.3 Baso # (Auto) 0.1 Abs Immat Gran (auto) 0.05 H Absolute Neuts (auto) 8.4 H Absolute Nucleated RBC 0.000 Nucleated RBC % (auto) 0.0 VBG pH 7.38 VBG pCO2 47 VBG pO2 62 VBG HCO3 28 H VBG O2 Saturation 87.0 VBG Base Excess 3.1 Sodium 137 Potassium 4.2 Chloride 102 Carbon Dioxide 24 Anion Gap 15 BUN 18 H Creatinine 0.94 Estim Creat Clear Calc 56.5 Estimated GFR > 60 POC Glucose 420 H* Random Glucose 360 H* Estimat Average Glucose Hemoglobin A1c % Calcium 8.4 Total Bilirubin 0.5 AST 18 ALT 13 Alkaline Phosphatase 52 Total Protein 6.3 L Albumin 3.8 Triglycerides Cholesterol LDL Cholesterol, Calc HDL Cholesterol Beta-Hydroxybutyrate 0.13 Urine Color Urine Appearance Urine pH Ur Specific [place] Urine Protein Urine Glucose (UA) Urine Ketones Urine Blood Urine Nitrite Ur Leukocyte Esterase T. vaginalis (PCR) Bact vaginosis (PCR) C. krusei/glabrata (PCR) Beatrice group (PCR) 10/14/24 10/14/24 10/14/24 15:38 16:35 20:26 WBC RBC Hgb Hct MCV MCH MCHC RDW Plt Count MPV Immature Gran % (Auto) Neut % (Auto) Lymph % (Auto) [place] % (Auto) Eos % (Auto) Baso % (Auto) Lymph # (Auto) [place] # (Auto) Eos # (Auto) Baso # (Auto) Abs Immat Gran (auto) Absolute Neuts (auto) Absolute Nucleated RBC Nucleated RBC % (auto) VBG pH VBG pCO2 VBG pO2 VBG HCO3 VBG O2 Saturation VBG Base Excess Sodium Potassium Chloride Carbon Dioxide Anion Gap BUN Creatinine Estim Creat Clear Calc Estimated GFR POC Glucose 129 H 371 H* Random Glucose Estimat Average Glucose Hemoglobin A1c % Calcium Total Bilirubin AST ALT Alkaline Phosphatase Total Protein Albumin Triglycerides Cholesterol LDL Cholesterol, Calc HDL Cholesterol Beta-Hydroxybutyrate Urine Color Yellow Urine Appearance Clear Urine pH 7.5 Ur Specific [place] <= 1.005 Urine Protein Negative Urine Glucose (UA) Negative Urine Ketones Negative Urine Blood Negative Urine Nitrite Negative Ur Leukocyte Esterase Negative T. vaginalis (PCR) Bact vaginosis (PCR) C. krusei/glabrata (PCR) Beatrice group (PCR) 10/14/24 10/15/24 10/15/24 22:21 07:49 08:22 WBC RBC Hgb Hct MCV MCH MCHC RDW Plt Count MPV Immature Gran % (Auto) Neut % (Auto) Lymph % (Auto) [place] % (Auto) Eos % (Auto) Baso % (Auto) Lymph # (Auto) [place] # (Auto) Eos # (Auto) Baso # (Auto) Abs Immat Gran (auto) Absolute Neuts (auto) Absolute Nucleated RBC Nucleated RBC % (auto) VBG pH VBG pCO2 VBG pO2 VBG HCO3 VBG O2 Saturation VBG Base Excess Sodium 142 Potassium 3.8 Chloride 104 Carbon Dioxide 30 H Anion Gap 12 BUN 15 Creatinine 0.92 Estim Creat Clear Calc 57.8 Estimated GFR > 60 POC Glucose 207 H 70 Random Glucose 79 Estimat Average Glucose 160 Hemoglobin A1c % 7.2 H Calcium 8.4 Total Bilirubin 0.6 AST 17 ALT 11 Alkaline Phosphatase 42 Total Protein 5.8 L Albumin 3.5 Triglycerides 59 Cholesterol 125 LDL Cholesterol, Calc 48 HDL Cholesterol 66 Beta-Hydroxybutyrate Urine Color Urine Appearance Urine pH Ur Specific [place] Urine Protein Urine Glucose (UA) Urine Ketones Urine Blood Urine Nitrite Ur Leukocyte Esterase T. vaginalis (PCR) Bact vaginosis (PCR) C. krusei/glabrata (PCR) Beatrice group (PCR) 10/15/24 10/15/24 10/15/24 11:50 16:34 20:42 WBC RBC Hgb Hct MCV MCH MCHC RDW Plt Count MPV Immature Gran % (Auto) Neut % (Auto) Lymph % (Auto) [place] % (Auto) Eos % (Auto) Baso % (Auto) Lymph # (Auto) [place] # (Auto) Eos # (Auto) Baso # (Auto) Abs Immat Gran (auto) Absolute Neuts (auto) Absolute Nucleated RBC Nucleated RBC % (auto) VBG pH VBG pCO2 VBG pO2 VBG HCO3 VBG O2 Saturation VBG Base Excess Sodium Potassium Chloride Carbon Dioxide Anion Gap BUN Creatinine Estim Creat Clear Calc Estimated GFR POC Glucose 389 H* 108 177 H Random Glucose Estimat Average Glucose Hemoglobin A1c % Calcium Total Bilirubin AST ALT Alkaline Phosphatase Total Protein Albumin Triglycerides Cholesterol LDL Cholesterol, Calc HDL Cholesterol Beta-Hydroxybutyrate Urine Color Urine Appearance Urine pH Ur Specific [place] Urine Protein Urine Glucose (UA) Urine Ketones Urine Blood Urine Nitrite Ur Leukocyte Esterase T. vaginalis (PCR) Bact vaginosis (PCR) C. krusei/glabrata (PCR) Beatrice group (PCR) 10/16/24 10/16/24 10/16/24 08:14 12:01 13:55 WBC RBC Hgb Hct MCV MCH MCHC RDW Plt Count MPV Immature Gran % (Auto) Neut % (Auto) Lymph % (Auto) [place] % (Auto) Eos % (Auto) Baso % (Auto) Lymph # (Auto) [place] # (Auto) Eos # (Auto) Baso # (Auto) Abs Immat Gran (auto) Absolute Neuts (auto) Absolute Nucleated RBC Nucleated RBC % (auto) VBG pH VBG pCO2 VBG pO2 VBG HCO3 VBG O2 Saturation VBG Base Excess Sodium Potassium Chloride Carbon Dioxide Anion Gap BUN Creatinine Estim Creat Clear Calc Estimated GFR POC Glucose 188 H 216 H 480 H* Random Glucose Estimat Average Glucose Hemoglobin A1c % Calcium Total Bilirubin AST ALT Alkaline Phosphatase Total Protein Albumin Triglycerides Cholesterol LDL Cholesterol, Calc HDL Cholesterol Beta-Hydroxybutyrate Urine Color Urine Appearance Urine pH Ur Specific [place] Urine Protein Urine Glucose (UA) Urine Ketones Urine Blood Urine Nitrite Ur Leukocyte Esterase T. vaginalis (PCR) Bact vaginosis (PCR) C. krusei/glabrata (PCR) Beatrice group (PCR) 10/16/24 10/16/24 10/16/24 17:23 21:06 23:48 WBC RBC Hgb Hct MCV MCH MCHC RDW Plt Count MPV Immature Gran % (Auto) Neut % (Auto) Lymph % (Auto) [place] % (Auto) Eos % (Auto) Baso % (Auto) Lymph # (Auto) [place] # (Auto) Eos # (Auto) Baso # (Auto) Abs Immat Gran (auto) Absolute Neuts (auto) Absolute Nucleated RBC Nucleated RBC % (auto) VBG pH VBG pCO2 VBG pO2 VBG HCO3 VBG O2 Saturation VBG Base Excess Sodium Potassium Chloride Carbon Dioxide Anion Gap BUN Creatinine Estim Creat Clear Calc Estimated GFR POC Glucose 99 351 H* 171 H Random Glucose Estimat Average Glucose Hemoglobin A1c % Calcium Total Bilirubin AST ALT Alkaline Phosphatase Total Protein Albumin Triglycerides Cholesterol LDL Cholesterol, Calc HDL Cholesterol Beta-Hydroxybutyrate Urine Color Urine Appearance Urine pH Ur Specific [place] Urine Protein Urine Glucose (UA) Urine Ketones Urine Blood Urine Nitrite Ur Leukocyte Esterase T. vaginalis (PCR) Bact vaginosis (PCR) C. krusei/glabrata (PCR) Beatrice group (PCR) 10/17/24 10/17/24 10/17/24 03:14 03:42 04:02 WBC RBC Hgb Hct MCV MCH MCHC RDW Plt Count MPV Immature Gran % (Auto) Neut % (Auto) Lymph % (Auto) [place] % (Auto) Eos % (Auto) Baso % (Auto) Lymph # (Auto) [place] # (Auto) Eos # (Auto) Baso # (Auto) Abs Immat Gran (auto) Absolute Neuts (auto) Absolute Nucleated RBC Nucleated RBC % (auto) VBG pH VBG pCO2 VBG pO2 VBG HCO3 VBG O2 Saturation VBG Base Excess Sodium Potassium Chloride Carbon Dioxide Anion Gap BUN Creatinine Estim Creat Clear Calc Estimated GFR POC Glucose 41 L* 115 178 H Random Glucose Estimat Average Glucose Hemoglobin A1c % Calcium Total Bilirubin AST ALT Alkaline Phosphatase Total Protein Albumin Triglycerides Cholesterol LDL Cholesterol, Calc HDL Cholesterol Beta-Hydroxybutyrate Urine Color Urine Appearance Urine pH Ur Specific [place] Urine Protein Urine Glucose (UA) Urine Ketones Urine Blood Urine Nitrite Ur Leukocyte Esterase T. vaginalis (PCR) Bact vaginosis (PCR) C. krusei/glabrata (PCR) Beatrice group (PCR) 10/17/24 10/17/24 10/17/24 08:05 12:15 17:03 WBC RBC Hgb Hct MCV MCH MCHC RDW Plt Count MPV Immature Gran % (Auto) Neut % (Auto) Lymph % (Auto) [place] % (Auto) Eos % (Auto) Baso % (Auto) Lymph # (Auto) [place] # (Auto) Eos # (Auto) Baso # (Auto) Abs Immat Gran (auto) Absolute Neuts (auto) Absolute Nucleated RBC Nucleated RBC % (auto) VBG pH VBG pCO2 VBG pO2 VBG HCO3 VBG O2 Saturation VBG Base Excess Sodium Potassium Chloride Carbon Dioxide Anion Gap BUN Creatinine Estim Creat Clear Calc Estimated GFR POC Glucose 362 H* 94 209 H Random Glucose Estimat Average Glucose Hemoglobin A1c % Calcium Total Bilirubin AST ALT Alkaline Phosphatase Total Protein Albumin Triglycerides Cholesterol LDL Cholesterol, Calc HDL Cholesterol Beta-Hydroxybutyrate Urine Color Urine Appearance Urine pH Ur Specific [place] Urine Protein Urine Glucose (UA) Urine Ketones Urine Blood Urine Nitrite Ur Leukocyte Esterase T. vaginalis (PCR) Bact vaginosis (PCR) C. krusei/glabrata (PCR) Beatrice group (PCR) 10/17/24 10/17/24 10/17/24 17:10 20:49 23:47 WBC RBC Hgb Hct MCV MCH MCHC RDW Plt Count MPV Immature Gran % (Auto) Neut % (Auto) Lymph % (Auto) [place] % (Auto) Eos % (Auto) Baso % (Auto) Lymph # (Auto) [place] # (Auto) Eos # (Auto) Baso # (Auto) Abs Immat Gran (auto) Absolute Neuts (auto) Absolute Nucleated RBC Nucleated RBC % (auto) VBG pH VBG pCO2 VBG pO2 VBG HCO3 VBG O2 Saturation VBG Base Excess Sodium Potassium Chloride Carbon Dioxide Anion Gap BUN Creatinine Estim Creat Clear Calc Estimated GFR POC Glucose 140 H 255 H Random Glucose Estimat Average Glucose Hemoglobin A1c % Calcium Total Bilirubin AST ALT Alkaline Phosphatase Total Protein Albumin Triglycerides Cholesterol LDL Cholesterol, Calc HDL Cholesterol Beta-Hydroxybutyrate Urine Color Urine Appearance Urine pH Ur Specific [place] Urine Protein Urine Glucose (UA) Urine Ketones Urine Blood Urine Nitrite Ur Leukocyte Esterase T. vaginalis (PCR) NOT DETECTED Bact vaginosis (PCR) NEGATIVE C. krusei/glabrata (PCR) NOT DETECTED Beatrice group (PCR) DETECTED A 10/18/24 10/18/24 10/18/24 08:11 12:21 17:10 WBC RBC Hgb Hct MCV MCH MCHC RDW Plt Count MPV Immature Gran % (Auto) Neut % (Auto) Lymph % (Auto) [place] % (Auto) Eos % (Auto) Baso % (Auto) Lymph # (Auto) [place] # (Auto) Eos # (Auto) Baso # (Auto) Abs Immat Gran (auto) Absolute Neuts (auto) Absolute Nucleated RBC Nucleated RBC % (auto) VBG pH VBG pCO2 VBG pO2 VBG HCO3 VBG O2 Saturation VBG Base Excess Sodium Potassium Chloride Carbon Dioxide Anion Gap BUN Creatinine Estim Creat Clear Calc Estimated GFR POC Glucose 73 274 H 65 Random Glucose Estimat Average Glucose Hemoglobin A1c % Calcium Total Bilirubin AST ALT Alkaline Phosphatase Total Protein Albumin Triglycerides Cholesterol LDL Cholesterol, Calc HDL Cholesterol Beta-Hydroxybutyrate Urine Color Urine Appearance Urine pH Ur Specific [place] Urine Protein Urine Glucose (UA) Urine Ketones Urine Blood Urine Nitrite Ur Leukocyte Esterase T. vaginalis (PCR) Bact vaginosis (PCR) C. krusei/glabrata (PCR) Beatrice group (PCR) 10/18/24 10/19/24 10/19/24 21:21 02:05 02:37 WBC RBC Hgb Hct MCV MCH MCHC RDW Plt Count MPV Immature Gran % (Auto) Neut % (Auto) Lymph % (Auto) [place] % (Auto) Eos % (Auto) Baso % (Auto) Lymph # (Auto) [place] # (Auto) Eos # (Auto) Baso # (Auto) Abs Immat Gran (auto) Absolute Neuts (auto) Absolute Nucleated RBC Nucleated RBC % (auto) VBG pH VBG pCO2 VBG pO2 VBG HCO3 VBG O2 Saturation VBG Base Excess Sodium Potassium Chloride Carbon Dioxide Anion Gap BUN Creatinine Estim Creat Clear Calc Estimated GFR POC Glucose 249 H 46 L* 200 H Random Glucose Estimat Average Glucose Hemoglobin A1c % Calcium Total Bilirubin AST ALT Alkaline Phosphatase Total Protein Albumin Triglycerides Cholesterol LDL Cholesterol, Calc HDL Cholesterol Beta-Hydroxybutyrate Urine Color Urine Appearance Urine pH Ur Specific [place] Urine Protein Urine Glucose (UA) Urine Ketones Urine Blood Urine Nitrite Ur Leukocyte Esterase T. vaginalis (PCR) Bact vaginosis (PCR) C. krusei/glabrata (PCR) Beatrice group (PCR) 10/19/24 10/19/24 10/19/24 03:03 03:33 07:48 WBC RBC Hgb Hct MCV MCH MCHC RDW Plt Count MPV Immature Gran % (Auto) Neut % (Auto) Lymph % (Auto) [place] % (Auto) Eos % (Auto) Baso % (Auto) Lymph # (Auto) [place] # (Auto) Eos # (Auto) Baso # (Auto) Abs Immat Gran (auto) Absolute Neuts (auto) Absolute Nucleated RBC Nucleated RBC % (auto) VBG pH VBG pCO2 VBG pO2 VBG HCO3 VBG O2 Saturation VBG Base Excess Sodium Potassium Chloride Carbon Dioxide Anion Gap BUN Creatinine Estim Creat Clear Calc Estimated GFR POC Glucose 275 H 242 H 338 H Random Glucose Estimat Average Glucose Hemoglobin A1c % Calcium Total Bilirubin AST ALT Alkaline Phosphatase Total Protein Albumin Triglycerides Cholesterol LDL Cholesterol, Calc HDL Cholesterol Beta-Hydroxybutyrate Urine Color Urine Appearance Urine pH Ur Specific [place] Urine Protein Urine Glucose (UA) Urine Ketones Urine Blood Urine Nitrite Ur Leukocyte Esterase T. vaginalis (PCR) Bact vaginosis (PCR) C. krusei/glabrata (PCR) Beatrice group (PCR) 10/19/24 10/19/24 10/19/24 08:16 12:09 16:59 WBC RBC Hgb Hct MCV MCH MCHC RDW Plt Count MPV Immature Gran % (Auto) Neut % (Auto) Lymph % (Auto) [place] % (Auto) Eos % (Auto) Baso % (Auto) Lymph # (Auto) [place] # (Auto) Eos # (Auto) Baso # (Auto) Abs Immat Gran (auto) Absolute Neuts (auto) Absolute Nucleated RBC Nucleated RBC % (auto) VBG pH VBG pCO2 VBG pO2 VBG HCO3 VBG O2 Saturation VBG Base Excess Sodium Potassium Chloride Carbon Dioxide Anion Gap BUN Creatinine Estim Creat Clear Calc Estimated GFR POC Glucose 333 H 150 H 253 H Random Glucose Estimat Average Glucose Hemoglobin A1c % Calcium Total Bilirubin AST ALT Alkaline Phosphatase Total Protein Albumin Triglycerides Cholesterol LDL Cholesterol, Calc HDL Cholesterol Beta-Hydroxybutyrate Urine Color Urine Appearance Urine pH Ur Specific [place] Urine Protein Urine Glucose (UA) Urine Ketones Urine Blood Urine Nitrite Ur Leukocyte Esterase T. vaginalis (PCR) Bact vaginosis (PCR) C. krusei/glabrata (PCR) Beatrice group (PCR) 10/19/24 10/19/24 10/19/24 19:45 21:31 22:38 WBC RBC Hgb Hct MCV MCH MCHC RDW Plt Count MPV Immature Gran % (Auto) Neut % (Auto) Lymph % (Auto) [place] % (Auto) Eos % (Auto) Baso % (Auto) Lymph # (Auto) [place] # (Auto) Eos # (Auto) Baso # (Auto) Abs Immat Gran (auto) Absolute Neuts (auto) Absolute Nucleated RBC Nucleated RBC % (auto) VBG pH VBG pCO2 VBG pO2 VBG HCO3 VBG O2 Saturation VBG Base Excess Sodium 140 Potassium 3.8 Chloride 103 Carbon Dioxide 27 Anion Gap 14 BUN 13 Creatinine 0.93 Estim Creat Clear Calc 58.8 Estimated GFR > 60 POC Glucose 565 H* 405 H* Random Glucose 152 H Estimat Average Glucose Hemoglobin A1c % Calcium 8.8 Total Bilirubin AST ALT Alkaline Phosphatase Total Protein Albumin Triglycerides Cholesterol LDL Cholesterol, Calc HDL Cholesterol Beta-Hydroxybutyrate Urine Color Urine Appearance Urine pH Ur Specific [place] Urine Protein Urine Glucose (UA) Urine Ketones Urine Blood Urine Nitrite Ur Leukocyte Esterase T. vaginalis (PCR) Bact vaginosis (PCR) C. krusei/glabrata (PCR) Beatrice group (PCR) 10/19/24 10/20/24 10/20/24 23:39 00:16 01:15 WBC RBC Hgb Hct MCV MCH MCHC RDW Plt Count MPV Immature Gran % (Auto) Neut % (Auto) Lymph % (Auto) [place] % (Auto) Eos % (Auto) Baso % (Auto) Lymph # (Auto) [place] # (Auto) Eos # (Auto) Baso # (Auto) Abs Immat Gran (auto) Absolute Neuts (auto) Absolute Nucleated RBC Nucleated RBC % (auto) VBG pH VBG pCO2 VBG pO2 VBG HCO3 VBG O2 Saturation VBG Base Excess Sodium Potassium Chloride Carbon Dioxide Anion Gap BUN Creatinine Estim Creat Clear Calc Estimated GFR POC Glucose 85 78 101 Random Glucose Estimat Average Glucose Hemoglobin A1c % Calcium Total Bilirubin AST ALT Alkaline Phosphatase Total Protein Albumin Triglycerides Cholesterol LDL Cholesterol, Calc HDL Cholesterol Beta-Hydroxybutyrate Urine Color Urine Appearance Urine pH Ur Specific [place] Urine Protein Urine Glucose (UA) Urine Ketones Urine Blood Urine Nitrite Ur Leukocyte Esterase T. vaginalis (PCR) Bact vaginosis (PCR) C. krusei/glabrata (PCR) Beatrice group (PCR) 10/20/24 10/20/24 10/20/24 02:34 07:05 07:53 WBC RBC Hgb Hct MCV MCH MCHC RDW Plt Count MPV Immature Gran % (Auto) Neut % (Auto) Lymph % (Auto) [place] % (Auto) Eos % (Auto) Baso % (Auto) Lymph # (Auto) [place] # (Auto) Eos # (Auto) Baso # (Auto) Abs Immat Gran (auto) Absolute Neuts (auto) Absolute Nucleated RBC Nucleated RBC % (auto) VBG pH VBG pCO2 VBG pO2 VBG HCO3 VBG O2 Saturation VBG Base Excess Sodium Potassium Chloride Carbon Dioxide Anion Gap BUN Creatinine Estim Creat Clear Calc Estimated GFR POC Glucose 259 H 128 H 167 H Random Glucose Estimat Average Glucose Hemoglobin A1c % Calcium Total Bilirubin AST ALT Alkaline Phosphatase Total Protein Albumin Triglycerides Cholesterol LDL Cholesterol, Calc HDL Cholesterol Beta-Hydroxybutyrate Urine Color Urine Appearance Urine pH Ur Specific [place] Urine Protein Urine Glucose (UA) Urine Ketones Urine Blood Urine Nitrite Ur Leukocyte Esterase T. vaginalis (PCR) Bact vaginosis (PCR) C. krusei/glabrata (PCR) Beatrice group (PCR) 10/20/24 10/20/24 10/20/24 12:18 16:56 20:51 WBC RBC Hgb Hct MCV MCH MCHC RDW Plt Count MPV Immature Gran % (Auto) Neut % (Auto) Lymph % (Auto) [place] % (Auto) Eos % (Auto) Baso % (Auto) Lymph # (Auto) [place] # (Auto) Eos # (Auto) Baso # (Auto) Abs Immat Gran (auto) Absolute Neuts (auto) Absolute Nucleated RBC Nucleated RBC % (auto) VBG pH VBG pCO2 VBG pO2 VBG HCO3 VBG O2 Saturation VBG Base Excess Sodium Potassium Chloride Carbon Dioxide Anion Gap BUN Creatinine Estim Creat Clear Calc Estimated GFR POC Glucose 439 H* 440 H* 166 H Random Glucose Estimat Average Glucose Hemoglobin A1c % Calcium Total Bilirubin AST ALT Alkaline Phosphatase Total Protein Albumin Triglycerides Cholesterol LDL Cholesterol, Calc HDL Cholesterol Beta-Hydroxybutyrate Urine Color Urine Appearance Urine pH Ur Specific [place] Urine Protein Urine Glucose (UA) Urine Ketones Urine Blood Urine Nitrite Ur Leukocyte Esterase T. vaginalis (PCR) Bact vaginosis (PCR) C. krusei/glabrata (PCR) Beatrice group (PCR) 10/21/24 10/21/24 10/21/24 08:08 12:06 17:11 WBC RBC Hgb Hct MCV MCH MCHC RDW Plt Count MPV Immature Gran % (Auto) Neut % (Auto) Lymph % (Auto) [place] % (Auto) Eos % (Auto) Baso % (Auto) Lymph # (Auto) [place] # (Auto) Eos # (Auto) Baso # (Auto) Abs Immat Gran (auto) Absolute Neuts (auto) Absolute Nucleated RBC Nucleated RBC % (auto) VBG pH VBG pCO2 VBG pO2 VBG HCO3 VBG O2 Saturation VBG Base Excess Sodium Potassium Chloride Carbon Dioxide Anion Gap BUN Creatinine Estim Creat Clear Calc Estimated GFR POC Glucose 128 H 219 H 135 H Random Glucose Estimat Average Glucose Hemoglobin A1c % Calcium Total Bilirubin AST ALT Alkaline Phosphatase Total Protein Albumin Triglycerides Cholesterol LDL Cholesterol, Calc HDL Cholesterol Beta-Hydroxybutyrate Urine Color Urine Appearance Urine pH Ur Specific [place] Urine Protein Urine Glucose (UA) Urine Ketones Urine Blood Urine Nitrite Ur Leukocyte Esterase T. vaginalis (PCR) Bact vaginosis (PCR) C. krusei/glabrata (PCR) Beatrice group (PCR) 10/21/24 10/22/24 10/22/24 19:39 03:06 07:43 WBC RBC Hgb Hct MCV MCH MCHC RDW Plt Count MPV Immature Gran % (Auto) Neut % (Auto) Lymph % (Auto) [place] % (Auto) Eos % (Auto) Baso % (Auto) Lymph # (Auto) [place] # (Auto) Eos # (Auto) Baso # (Auto) Abs Immat Gran (auto) Absolute Neuts (auto) Absolute Nucleated RBC Nucleated RBC % (auto) VBG pH VBG pCO2 VBG pO2 VBG HCO3 VBG O2 Saturation VBG Base Excess Sodium Potassium Chloride Carbon Dioxide Anion Gap BUN Creatinine Estim Creat Clear Calc Estimated GFR POC Glucose 175 H 237 H 257 H Random Glucose Estimat Average Glucose Hemoglobin A1c % Calcium Total Bilirubin AST ALT Alkaline Phosphatase Total Protein Albumin Triglycerides Cholesterol LDL Cholesterol, Calc HDL Cholesterol Beta-Hydroxybutyrate Urine Color Urine Appearance Urine pH Ur Specific [place] Urine Protein Urine Glucose (UA) Urine Ketones Urine Blood Urine Nitrite Ur Leukocyte Esterase T. vaginalis (PCR) Bact vaginosis (PCR) C. krusei/glabrata (PCR) Beatrice group (PCR) 10/22/24 10/22/24 10/22/24 12:11 16:54 18:39 WBC RBC Hgb Hct MCV MCH MCHC RDW Plt Count MPV Immature Gran % (Auto) Neut % (Auto) Lymph % (Auto) [place] % (Auto) Eos % (Auto) Baso % (Auto) Lymph # (Auto) [place] # (Auto) Eos # (Auto) Baso # (Auto) Abs Immat Gran (auto) Absolute Neuts (auto) Absolute Nucleated RBC Nucleated RBC % (auto) VBG pH VBG pCO2 VBG pO2 VBG HCO3 VBG O2 Saturation VBG Base Excess Sodium Potassium Chloride Carbon Dioxide Anion Gap BUN Creatinine Estim Creat Clear Calc Estimated GFR POC Glucose 81 518 H* 335 H Random Glucose Estimat Average Glucose Hemoglobin A1c % Calcium Total Bilirubin AST ALT Alkaline Phosphatase Total Protein Albumin Triglycerides Cholesterol LDL Cholesterol, Calc HDL Cholesterol Beta-Hydroxybutyrate Urine Color Urine Appearance Urine pH Ur Specific [place] Urine Protein Urine Glucose (UA) Urine Ketones Urine Blood Urine Nitrite Ur Leukocyte Esterase T. vaginalis (PCR) Bact vaginosis (PCR) C. krusei/glabrata (PCR) Beatrice group (PCR) 10/22/24 10/22/24 10/23/24 20:17 22:10 00:03 WBC RBC Hgb Hct MCV MCH MCHC RDW Plt Count MPV Immature Gran % (Auto) Neut % (Auto) Lymph % (Auto) [place] % (Auto) Eos % (Auto) Baso % (Auto) Lymph # (Auto) [place] # (Auto) Eos # (Auto) Baso # (Auto) Abs Immat Gran (auto) Absolute Neuts (auto) Absolute Nucleated RBC Nucleated RBC % (auto) VBG pH VBG pCO2 VBG pO2 VBG HCO3 VBG O2 Saturation VBG Base Excess Sodium Potassium Chloride Carbon Dioxide Anion Gap BUN Creatinine Estim Creat Clear Calc Estimated GFR POC Glucose 546 H* 171 H 40 L* Random Glucose Estimat Average Glucose Hemoglobin A1c % Calcium Total Bilirubin AST ALT Alkaline Phosphatase Total Protein Albumin Triglycerides Cholesterol LDL Cholesterol, Calc HDL Cholesterol Beta-Hydroxybutyrate Urine Color Urine Appearance Urine pH Ur Specific [place] Urine Protein Urine Glucose (UA) Urine Ketones Urine Blood Urine Nitrite Ur Leukocyte Esterase T. vaginalis (PCR) Bact vaginosis (PCR) C. krusei/glabrata (PCR) Beatrice group (PCR) 10/23/24 10/23/24 10/23/24 00:25 00:47 01:11 WBC RBC Hgb Hct MCV MCH MCHC RDW Plt Count MPV Immature Gran % (Auto) Neut % (Auto) Lymph % (Auto) [place] % (Auto) Eos % (Auto) Baso % (Auto) Lymph # (Auto) [place] # (Auto) Eos # (Auto) Baso # (Auto) Abs Immat Gran (auto) Absolute Neuts (auto) Absolute Nucleated RBC Nucleated RBC % (auto) VBG pH VBG pCO2 VBG pO2 VBG HCO3 VBG O2 Saturation VBG Base Excess Sodium Potassium Chloride Carbon Dioxide Anion Gap BUN Creatinine Estim Creat Clear Calc Estimated GFR POC Glucose 98 78 143 H Random Glucose Estimat Average Glucose Hemoglobin A1c % Calcium Total Bilirubin AST ALT Alkaline Phosphatase Total Protein Albumin Triglycerides Cholesterol LDL Cholesterol, Calc HDL Cholesterol Beta-Hydroxybutyrate Urine Color Urine Appearance Urine pH Ur Specific [place] Urine Protein Urine Glucose (UA) Urine Ketones Urine Blood Urine Nitrite Ur Leukocyte Esterase T. vaginalis (PCR) Bact vaginosis (PCR) C. krusei/glabrata (PCR) Beatrice group (PCR) 10/23/24 10/23/24 04:00 06:14 WBC RBC Hgb Hct MCV MCH MCHC RDW Plt Count MPV Immature Gran % (Auto) Neut % (Auto) Lymph % (Auto) [place] % (Auto) Eos % (Auto) Baso % (Auto) Lymph # (Auto) [place] # (Auto) Eos # (Auto) Baso # (Auto) Abs Immat Gran (auto) Absolute Neuts (auto) Absolute Nucleated RBC Nucleated RBC % (auto) VBG pH VBG pCO2 VBG pO2 VBG HCO3 VBG O2 Saturation VBG Base Excess Sodium Potassium Chloride Carbon Dioxide Anion Gap BUN Creatinine Estim Creat Clear Calc Estimated GFR POC Glucose 115 197 H Random Glucose Estimat Average Glucose Hemoglobin A1c % Calcium Total Bilirubin AST ALT Alkaline Phosphatase Total Protein Albumin Triglycerides Cholesterol LDL Cholesterol, Calc HDL Cholesterol Beta-Hydroxybutyrate Urine Color Urine Appearance Urine pH Ur Specific [place] Urine Protein Urine Glucose (UA) Urine Ketones Urine Blood Urine Nitrite Ur Leukocyte Esterase T. vaginalis (PCR) Bact vaginosis (PCR) C. krusei/glabrata (PCR) Beatrice group (PCR) Assessment and Plan Final Anesthetic Review Family History of Problems with Anesthesia: No History of Problems with Anesthesia: No ASA Class: III Patient Risk: Low Procedure Risk: Intermediate Anesthetic Plan Anesthetic Plan: GA Disposition: Standard PACU
--- NOTE | 2024-10-23 07:53 | MHC.SHP ---
Pre-Procedural Eval Section A - 24 Hr Update-Section A only Date of Service: 10/23/24 The patient is an INPATIENT: Yes Changes since office visit: Yes Changes in Medication and Yes Patient answered all questions; No Cold of Flu in the past 2 weeks and No New Medical Problems The patient has been examined within 24 hours of the surgical procedure. The History & Physical has been completed within 30 days and I have reviewed it.: Yes Section B - Complete if H&P > 30 days Chief Complaint: Suicidal Allergies: Allergies Allergy/AdvReac Type Severity Reaction Status Date / Time Penicillins AdvReac Rash Verified 10/14/24 02:15 Sulfa (Sulfonamide AdvReac Rash Verified 10/14/24 02:15 Antibiotics) Plan I have reviewed the history and physical and performed a pertinent physical examination on my patient. No changes have occurred unless specified. Time Spent With Patient Time: Total time managing care of this patient today ____ minutes.
--- NOTE | 2024-10-23 07:59 | P.CONAN_ITS ---
[facility] Active Problems Active Problems: All Active Problems (Updated 10/20/24 @ 16:27 by Wilfredo Vasquez MD) Injury of nail bed of finger of right hand (Acute) PTSD (post-traumatic stress disorder) (Acute) MDD (major depressive disorder), recurrent, severe, with psychosis (Acute) Type 1 diabetes (Acute) Depression (Acute) Anxiety (Acute) Suicidal ideation (Acute) Past Medical History Medical History (Updated 10/20/24 @ 16:27 by Wilfredo Vasquez MD) History of myocardial infarction Family History Family history of problems with anesthesia: No Surgical History History of Problems with Anesthesia: No Social History Social History Household Members: Spouse Housing: Apartment Do you presently have visiting nurse or other home services: No Patient Tobacco Use Status: Former Tobacco user Tobacco use type: Cigarette Second Hand Smoke Exposure: Yes Currently Displaying Signs/Symptoms of Drug Intoxication Withdrawal: No Have you been hit, kicked, punched, or otherwise hurt by someone within the past year? If so, by whom?: No Do you feel safe in your current relationship?: Yes Is there a partner from a previous relationship who is making you feel unsafe now?: No Are you made to feel afraid or neglected: No Advance Directives: No Advance Directives Information Provided: Yes Advance Directives on File: No Do you have thoughts of harming others: None Do you have a plan to hurt others: No Plan Recently lost weight without trying: No Nutrition Risks: No Nutritional Risk Patient : No : No Poor oral hygiene: No service: No Sexual orientation: Straight/Heterosexual Meds Allergies Allergy/AdvReac Type Severity Reaction Status Date / Time Penicillins AdvReac Rash Verified 10/14/24 02:15 Sulfa (Sulfonamide AdvReac Rash Verified 10/14/24 02:15 Antibiotics) Active Medications: Current Medications Acetaminophen (Acetaminophen 325 Mg Tablet) 650 mg PO Q6H PRN PRN Reason: Headache/Pain, Scale 1-10 Al Hydroxide/Mg Hydroxide (Magnesium Hydrox/Alum Hydrox 30 Ml Oral.Susp) 30 ml PO Q6H PRN PRN Reason: Heartburn/Nausea Aspirin (Aspirin Enteric Coated 81 Mg Tablet.) 81 mg PO DAILY [facility] Last Admin: 10/22/24 08:35 Dose: 81 mg Bacitracin (Bacitracin Oint 14 Gm Tube) 1 appl TOPICAL BID [facility]; Protocol Stop: 10/23/24 12:59 Last Admin: 10/22/24 22:29 Dose: Not Given Capsaicin (Capsaicin 0.025% Cream 60 Gm Tube) 1 appl TOPICAL QID PRN; Protocol PRN Reason: muscle aches Dextrose (Dextrose 50 % 25 Gm/50 Ml Syringe) 25 gm IVPUSH Q15M PRN; Protocol PRN Reason: per Hypoglycemia Standing Ord. Docusate Sodium (Docusate Sodium 100 Mg Capsule) 100 mg PO BEDTIME PRN PRN Reason: Constipation Fluoxetine HCl (Fluoxetine Hcl 20 Mg Capsule) 40 mg PO DAILY [facility] Last Admin: 10/22/24 08:35 Dose: 40 mg Glucose (Glucose Gel 15 Gm Gel..Gram.) 15 gm PO Q15M PRN; Protocol PRN Reason: per Hypoglycemia Standing Ord. Last Admin: 10/23/24 00:07 Dose: 15 gm Hydroxyzine HCl (Hydroxyzine Hcl 25 Mg Tablet) 25 mg PO Q6H PRN PRN Reason: mild anxiety Last Admin: 10/21/24 22:02 Dose: 25 mg Insulin Glargine (Insulin Glargine,Hum.Rec.Anlog 100 Unit/Ml 10 Ml Vial) 15 unit SUBCUT DAILY [facility] Last Admin: 10/22/24 08:37 Dose: 15 unit Insulin Human Lispro (Insulin Lispro 100 Unit/Ml 3 Ml Vial) 0 unit SUBCUT TIDAC [facility]; Protocol Last Admin: 10/22/24 17:14 Dose: 12 unit Levothyroxine Sodium (Levothyroxine Sodium 150 Mcg Tablet) 150 mcg PO DAILY@0600 [facility] Last Admin: 10/23/24 06:25 Dose: 150 mcg Lorazepam (Lorazepam 0.5 Mg Tablet) 0.5 mg PO DAILY PRN PRN Reason: Anxiety Last Admin: 10/22/24 12:54 Dose: 0.5 mg Magnesium Hydroxide (Milk Of Magnesia 30 Ml Oral.Susp) 30 ml PO DAILY PRN PRN Reason: Constipation Last Admin: 10/15/24 12:22 Dose: 30 ml Nicotine Polacrilex (Nicotine Polacrilex 2 Mg Gum) 4 mg BUCCAL Q2H PRN PRN Reason: Nicotine Cravings Non-Formulary Medication (Evolocumab [Repatha Syringe]) 140 mg SUBCUT Q14D [facility] Olanzapine (Olanzapine 10 Mg Tablet) 10 mg PO BEDTIME [facility] Last Admin: 10/22/24 22:28 Dose: 10 mg Polyethylene Glycol (Polyethylene Glycol 3350 17 Gm Powd.Pack) 17 gm PO DAILY PRN PRN Reason: Constipation Simethicone (Simethicone 80 Mg Tab.Chew) 80 mg PO QIDWMHS PRN PRN Reason: flatulance Trazodone HCl (Trazodone Hcl 50 Mg Tablet) 50 mg PO BEDTIME MRX1 PRN PRN Reason: Insomnia Last Admin: 10/21/24 22:02 Dose: 50 mg Trazodone HCl (Trazodone Hcl 50 Mg Tablet) 50 mg PO BEDTIME [facility] Last Admin: 10/22/24 22:29 Dose: 50 mg Home Medications ?Medication ?Instructions ?Recorded ?Confirmed ?Last Taken ?Type evolocumab 140 mg/mL subcutaneous 140 mg subcut Q2W 10/14/24 Unknown History syringe (Repatha Syringe) fluoxetine 20 mg capsule 20 mg PO DAILY 10/14/2409/17 Unknown History fluoxetine 40 mg capsule 40 mg PO DAILY 10/14/2409/17 Unknown History levothyroxine 150 mcg tablet 150 mcg PO QAM 10/14/24 0 10/14/24 Unknown History lorazepam 0.5 mg tablet 0.5 mg PO DAILY PRN anxiety 10/14/24 10/14/24 Unknown History semaglutide (weight loss) 1 mg/0.5 mg subcut 10/14/24 Unknown History mL subcutaneous pen injector (Wegovy) trazodone 50 mg tablet 50 mg PO BEDTIME insomnia 10/14/24 Unknown History Exam Height,Weight and Vital Signs: Height 4 ft 11 in Weight 59.8 kg Last Vital Signs Temp 97.8 F 10/23/24 06:46 Pulse 67 10/23/24 06:46 Resp 18 10/23/24 06:46 BP 116/63 10/23/24 06:46 Pulse Ox 96 10/23/24 06:46 O2 Del Method Room Air 10/23/24 06:46 Pertinent Lab Results Pertinent Lab Results: Laboratory Tests 10/14/24 10/14/24 10/14/24 02:08 07:43 11:03 WBC RBC Hgb Hct MCV MCH MCHC RDW Plt Count MPV Immature Gran % (Auto) Neut % (Auto) Lymph % (Auto) [place] % (Auto) Eos % (Auto) Baso % (Auto) Lymph # (Auto) [place] # (Auto) Eos # (Auto) Baso # (Auto) Abs Immat Gran (auto) Absolute Neuts (auto) Absolute Nucleated RBC Nucleated RBC % (auto) VBG pH VBG pCO2 VBG pO2 VBG HCO3 VBG O2 Saturation VBG Base Excess Sodium Potassium Chloride Carbon Dioxide Anion Gap BUN Creatinine Estim Creat Clear Calc Estimated GFR POC Glucose 346 H 392 H* 556 H* Random Glucose Estimat Average Glucose Hemoglobin A1c % Calcium Total Bilirubin AST ALT Alkaline Phosphatase Total Protein Albumin Triglycerides Cholesterol LDL Cholesterol, Calc HDL Cholesterol Beta-Hydroxybutyrate Urine Color Urine Appearance Urine pH Ur Specific [place] Urine Protein Urine Glucose (UA) Urine Ketones Urine Blood Urine Nitrite Ur Leukocyte Esterase T. vaginalis (PCR) Bact vaginosis (PCR) C. krusei/glabrata (PCR) Beatrice group (PCR) 10/14/24 10/14/24 10/14/24 12:09 12:38 12:48 WBC 11.7 H RBC 3.94 L Hgb 12.8 Hct 36.7 L MCV 93.1 MCH 32.5 MCHC 34.9 RDW 12.8 Plt Count 193 MPV 9.9 Immature Gran % (Auto) 0.4 Neut % (Auto) 71.5 Lymph % (Auto) 20.1 [place] % (Auto) 4.7 Eos % (Auto) 2.4 Baso % (Auto) 0.9 Lymph # (Auto) 2.4 [place] # (Auto) 0.6 Eos # (Auto) 0.3 Baso # (Auto) 0.1 Abs Immat Gran (auto) 0.05 H Absolute Neuts (auto) 8.4 H Absolute Nucleated RBC 0.000 Nucleated RBC % (auto) 0.0 VBG pH 7.38 VBG pCO2 47 VBG pO2 62 VBG HCO3 28 H VBG O2 Saturation 87.0 VBG Base Excess 3.1 Sodium 137 Potassium 4.2 Chloride 102 Carbon Dioxide 24 Anion Gap 15 BUN 18 H Creatinine 0.94 Estim Creat Clear Calc 56.5 Estimated GFR > 60 POC Glucose 420 H* Random Glucose 360 H* Estimat Average Glucose Hemoglobin A1c % Calcium 8.4 Total Bilirubin 0.5 AST 18 ALT 13 Alkaline Phosphatase 52 Total Protein 6.3 L Albumin 3.8 Triglycerides Cholesterol LDL Cholesterol, Calc HDL Cholesterol Beta-Hydroxybutyrate 0.13 Urine Color Urine Appearance Urine pH Ur Specific [place] Urine Protein Urine Glucose (UA) Urine Ketones Urine Blood Urine Nitrite Ur Leukocyte Esterase T. vaginalis (PCR) Bact vaginosis (PCR) C. krusei/glabrata (PCR) Beatrice group (PCR) 10/14/24 10/14/24 10/14/24 15:38 16:35 20:26 WBC RBC Hgb Hct MCV MCH MCHC RDW Plt Count MPV Immature Gran % (Auto) Neut % (Auto) Lymph % (Auto) [place] % (Auto) Eos % (Auto) Baso % (Auto) Lymph # (Auto) [place] # (Auto) Eos # (Auto) Baso # (Auto) Abs Immat Gran (auto) Absolute Neuts (auto) Absolute Nucleated RBC Nucleated RBC % (auto) VBG pH VBG pCO2 VBG pO2 VBG HCO3 VBG O2 Saturation VBG Base Excess Sodium Potassium Chloride Carbon Dioxide Anion Gap BUN Creatinine Estim Creat Clear Calc Estimated GFR POC Glucose 129 H 371 H* Random Glucose Estimat Average Glucose Hemoglobin A1c % Calcium Total Bilirubin AST ALT Alkaline Phosphatase Total Protein Albumin Triglycerides Cholesterol LDL Cholesterol, Calc HDL Cholesterol Beta-Hydroxybutyrate Urine Color Yellow Urine Appearance Clear Urine pH 7.5 Ur Specific [place] <= 1.005 Urine Protein Negative Urine Glucose (UA) Negative Urine Ketones Negative Urine Blood Negative Urine Nitrite Negative Ur Leukocyte Esterase Negative T. vaginalis (PCR) Bact vaginosis (PCR) C. krusei/glabrata (PCR) Beatrice group (PCR) 10/14/24 10/15/24 10/15/24 22:21 07:49 08:22 WBC RBC Hgb Hct MCV MCH MCHC RDW Plt Count MPV Immature Gran % (Auto) Neut % (Auto) Lymph % (Auto) [place] % (Auto) Eos % (Auto) Baso % (Auto) Lymph # (Auto) [place] # (Auto) Eos # (Auto) Baso # (Auto) Abs Immat Gran (auto) Absolute Neuts (auto) Absolute Nucleated RBC Nucleated RBC % (auto) VBG pH VBG pCO2 VBG pO2 VBG HCO3 VBG O2 Saturation VBG Base Excess Sodium 142 Potassium 3.8 Chloride 104 Carbon Dioxide 30 H Anion Gap 12 BUN 15 Creatinine 0.92 Estim Creat Clear Calc 57.8 Estimated GFR > 60 POC Glucose 207 H 70 Random Glucose 79 Estimat Average Glucose 160 Hemoglobin A1c % 7.2 H Calcium 8.4 Total Bilirubin 0.6 AST 17 ALT 11 Alkaline Phosphatase 42 Total Protein 5.8 L Albumin 3.5 Triglycerides 59 Cholesterol 125 LDL Cholesterol, Calc 48 HDL Cholesterol 66 Beta-Hydroxybutyrate Urine Color Urine Appearance Urine pH Ur Specific [place] Urine Protein Urine Glucose (UA) Urine Ketones Urine Blood Urine Nitrite Ur Leukocyte Esterase T. vaginalis (PCR) Bact vaginosis (PCR) C. krusei/glabrata (PCR) Beatrice group (PCR) 10/15/24 10/15/24 10/15/24 11:50 16:34 20:42 WBC RBC Hgb Hct MCV MCH MCHC RDW Plt Count MPV Immature Gran % (Auto) Neut % (Auto) Lymph % (Auto) [place] % (Auto) Eos % (Auto) Baso % (Auto) Lymph # (Auto) [place] # (Auto) Eos # (Auto) Baso # (Auto) Abs Immat Gran (auto) Absolute Neuts (auto) Absolute Nucleated RBC Nucleated RBC % (auto) VBG pH VBG pCO2 VBG pO2 VBG HCO3 VBG O2 Saturation VBG Base Excess Sodium Potassium Chloride Carbon Dioxide Anion Gap BUN Creatinine Estim Creat Clear Calc Estimated GFR POC Glucose 389 H* 108 177 H Random Glucose Estimat Average Glucose Hemoglobin A1c % Calcium Total Bilirubin AST ALT Alkaline Phosphatase Total Protein Albumin Triglycerides Cholesterol LDL Cholesterol, Calc HDL Cholesterol Beta-Hydroxybutyrate Urine Color Urine Appearance Urine pH Ur Specific [place] Urine Protein Urine Glucose (UA) Urine Ketones Urine Blood Urine Nitrite Ur Leukocyte Esterase T. vaginalis (PCR) Bact vaginosis (PCR) C. krusei/glabrata (PCR) Beatrice group (PCR) 10/16/24 10/16/24 10/16/24 08:14 12:01 13:55 WBC RBC Hgb Hct MCV MCH MCHC RDW Plt Count MPV Immature Gran % (Auto) Neut % (Auto) Lymph % (Auto) [place] % (Auto) Eos % (Auto) Baso % (Auto) Lymph # (Auto) [place] # (Auto) Eos # (Auto) Baso # (Auto) Abs Immat Gran (auto) Absolute Neuts (auto) Absolute Nucleated RBC Nucleated RBC % (auto) VBG pH VBG pCO2 VBG pO2 VBG HCO3 VBG O2 Saturation VBG Base Excess Sodium Potassium Chloride Carbon Dioxide Anion Gap BUN Creatinine Estim Creat Clear Calc Estimated GFR POC Glucose 188 H 216 H 480 H* Random Glucose Estimat Average Glucose Hemoglobin A1c % Calcium Total Bilirubin AST ALT Alkaline Phosphatase Total Protein Albumin Triglycerides Cholesterol LDL Cholesterol, Calc HDL Cholesterol Beta-Hydroxybutyrate Urine Color Urine Appearance Urine pH Ur Specific [place] Urine Protein Urine Glucose (UA) Urine Ketones Urine Blood Urine Nitrite Ur Leukocyte Esterase T. vaginalis (PCR) Bact vaginosis (PCR) C. krusei/glabrata (PCR) Beatrice group (PCR) 10/16/24 10/16/24 10/16/24 17:23 21:06 23:48 WBC RBC Hgb Hct MCV MCH MCHC RDW Plt Count MPV Immature Gran % (Auto) Neut % (Auto) Lymph % (Auto) [place] % (Auto) Eos % (Auto) Baso % (Auto) Lymph # (Auto) [place] # (Auto) Eos # (Auto) Baso # (Auto) Abs Immat Gran (auto) Absolute Neuts (auto) Absolute Nucleated RBC Nucleated RBC % (auto) VBG pH VBG pCO2 VBG pO2 VBG HCO3 VBG O2 Saturation VBG Base Excess Sodium Potassium Chloride Carbon Dioxide Anion Gap BUN Creatinine Estim Creat Clear Calc Estimated GFR POC Glucose 99 351 H* 171 H Random Glucose Estimat Average Glucose Hemoglobin A1c % Calcium Total Bilirubin AST ALT Alkaline Phosphatase Total Protein Albumin Triglycerides Cholesterol LDL Cholesterol, Calc HDL Cholesterol Beta-Hydroxybutyrate Urine Color Urine Appearance Urine pH Ur Specific [place] Urine Protein Urine Glucose (UA) Urine Ketones Urine Blood Urine Nitrite Ur Leukocyte Esterase T. vaginalis (PCR) Bact vaginosis (PCR) C. krusei/glabrata (PCR) Beatrice group (PCR) 10/17/24 10/17/24 10/17/24 03:14 03:42 04:02 WBC RBC Hgb Hct MCV MCH MCHC RDW Plt Count MPV Immature Gran % (Auto) Neut % (Auto) Lymph % (Auto) [place] % (Auto) Eos % (Auto) Baso % (Auto) Lymph # (Auto) [place] # (Auto) Eos # (Auto) Baso # (Auto) Abs Immat Gran (auto) Absolute Neuts (auto) Absolute Nucleated RBC Nucleated RBC % (auto) VBG pH VBG pCO2 VBG pO2 VBG HCO3 VBG O2 Saturation VBG Base Excess Sodium Potassium Chloride Carbon Dioxide Anion Gap BUN Creatinine Estim Creat Clear Calc Estimated GFR POC Glucose 41 L* 115 178 H Random Glucose Estimat Average Glucose Hemoglobin A1c % Calcium Total Bilirubin AST ALT Alkaline Phosphatase Total Protein Albumin Triglycerides Cholesterol LDL Cholesterol, Calc HDL Cholesterol Beta-Hydroxybutyrate Urine Color Urine Appearance Urine pH Ur Specific [place] Urine Protein Urine Glucose (UA) Urine Ketones Urine Blood Urine Nitrite Ur Leukocyte Esterase T. vaginalis (PCR) Bact vaginosis (PCR) C. krusei/glabrata (PCR) Beatrice group (PCR) 10/17/24 10/17/24 10/17/24 08:05 12:15 17:03 WBC RBC Hgb Hct MCV MCH MCHC RDW Plt Count MPV Immature Gran % (Auto) Neut % (Auto) Lymph % (Auto) [place] % (Auto) Eos % (Auto) Baso % (Auto) Lymph # (Auto) [place] # (Auto) Eos # (Auto) Baso # (Auto) Abs Immat Gran (auto) Absolute Neuts (auto) Absolute Nucleated RBC Nucleated RBC % (auto) VBG pH VBG pCO2 VBG pO2 VBG HCO3 VBG O2 Saturation VBG Base Excess Sodium Potassium Chloride Carbon Dioxide Anion Gap BUN Creatinine Estim Creat Clear Calc Estimated GFR POC Glucose 362 H* 94 209 H Random Glucose Estimat Average Glucose Hemoglobin A1c % Calcium Total Bilirubin AST ALT Alkaline Phosphatase Total Protein Albumin Triglycerides Cholesterol LDL Cholesterol, Calc HDL Cholesterol Beta-Hydroxybutyrate Urine Color Urine Appearance Urine pH Ur Specific [place] Urine Protein Urine Glucose (UA) Urine Ketones Urine Blood Urine Nitrite Ur Leukocyte Esterase T. vaginalis (PCR) Bact vaginosis (PCR) C. krusei/glabrata (PCR) Beatrice group (PCR) 10/17/24 10/17/24 10/17/24 17:10 20:49 23:47 WBC RBC Hgb Hct MCV MCH MCHC RDW Plt Count MPV Immature Gran % (Auto) Neut % (Auto) Lymph % (Auto) [place] % (Auto) Eos % (Auto) Baso % (Auto) Lymph # (Auto) [place] # (Auto) Eos # (Auto) Baso # (Auto) Abs Immat Gran (auto) Absolute Neuts (auto) Absolute Nucleated RBC Nucleated RBC % (auto) VBG pH VBG pCO2 VBG pO2 VBG HCO3 VBG O2 Saturation VBG Base Excess Sodium Potassium Chloride Carbon Dioxide Anion Gap BUN Creatinine Estim Creat Clear Calc Estimated GFR POC Glucose 140 H 255 H Random Glucose Estimat Average Glucose Hemoglobin A1c % Calcium Total Bilirubin AST ALT Alkaline Phosphatase Total Protein Albumin Triglycerides Cholesterol LDL Cholesterol, Calc HDL Cholesterol Beta-Hydroxybutyrate Urine Color Urine Appearance Urine pH Ur Specific [place] Urine Protein Urine Glucose (UA) Urine Ketones Urine Blood Urine Nitrite Ur Leukocyte Esterase T. vaginalis (PCR) NOT DETECTED Bact vaginosis (PCR) NEGATIVE C. krusei/glabrata (PCR) NOT DETECTED Beatrice group (PCR) DETECTED A 10/18/24 10/18/24 10/18/24 08:11 12:21 17:10 WBC RBC Hgb Hct MCV MCH MCHC RDW Plt Count MPV Immature Gran % (Auto) Neut % (Auto) Lymph % (Auto) [place] % (Auto) Eos % (Auto) Baso % (Auto) Lymph # (Auto) [place] # (Auto) Eos # (Auto) Baso # (Auto) Abs Immat Gran (auto) Absolute Neuts (auto) Absolute Nucleated RBC Nucleated RBC % (auto) VBG pH VBG pCO2 VBG pO2 VBG HCO3 VBG O2 Saturation VBG Base Excess Sodium Potassium Chloride Carbon Dioxide Anion Gap BUN Creatinine Estim Creat Clear Calc Estimated GFR POC Glucose 73 274 H 65 Random Glucose Estimat Average Glucose Hemoglobin A1c % Calcium Total Bilirubin AST ALT Alkaline Phosphatase Total Protein Albumin Triglycerides Cholesterol LDL Cholesterol, Calc HDL Cholesterol Beta-Hydroxybutyrate Urine Color Urine Appearance Urine pH Ur Specific [place] Urine Protein Urine Glucose (UA) Urine Ketones Urine Blood Urine Nitrite Ur Leukocyte Esterase T. vaginalis (PCR) Bact vaginosis (PCR) C. krusei/glabrata (PCR) E[facility]rice group (PCR) 10/18/24 10/19/24 10/19/24 21:21 02:05 02:37 WBC RBC Hgb Hct MCV MCH MCHC RDW Plt Count MPV Immature Gran % (Auto) Neut % (Auto) Lymph % (Auto) [place] % (Auto) Eos % (Auto) Baso % (Auto) Lymph # (Auto) [place] # (Auto) Eos # (Auto) Baso # (Auto) Abs Immat Gran (auto) Absolute Neuts (auto) Absolute Nucleated RBC Nucleated RBC % (auto) VBG pH VBG pCO2 VBG pO2 VBG HCO3 VBG O2 Saturation VBG Base Excess Sodium Potassium Chloride Carbon Dioxide Anion Gap BUN Creatinine Estim Creat Clear Calc Estimated GFR POC Glucose 249 H 46 L* 200 H Random Glucose Estimat Average Glucose Hemoglobin A1c % Calcium Total Bilirubin AST ALT Alkaline Phosphatase Total Protein Albumin Triglycerides Cholesterol LDL Cholesterol, Calc HDL Cholesterol Beta-Hydroxybutyrate Urine Color Urine Appearance Urine pH Ur Specific [place] Urine Protein Urine Glucose (UA) Urine Ketones Urine Blood Urine Nitrite Ur Leukocyte Esterase T. vaginalis (PCR) Bact vaginosis (PCR) C. krusei/glabrata (PCR) Beatrice group (PCR) 10/19/24 10/19/24 10/19/24 03:03 03:33 07:48 WBC RBC Hgb Hct MCV MCH MCHC RDW Plt Count MPV Immature Gran % (Auto) Neut % (Auto) Lymph % (Auto) [place] % (Auto) Eos % (Auto) Baso % (Auto) Lymph # (Auto) [place] # (Auto) Eos # (Auto) Baso # (Auto) Abs Immat Gran (auto) Absolute Neuts (auto) Absolute Nucleated RBC Nucleated RBC % (auto) VBG pH VBG pCO2 VBG pO2 VBG HCO3 VBG O2 Saturation VBG Base Excess Sodium Potassium Chloride Carbon Dioxide Anion Gap BUN Creatinine Estim Creat Clear Calc Estimated GFR POC Glucose 275 H 242 H 338 H Random Glucose Estimat Average Glucose Hemoglobin A1c % Calcium Total Bilirubin AST ALT Alkaline Phosphatase Total Protein Albumin Triglycerides Cholesterol LDL Cholesterol, Calc HDL Cholesterol Beta-Hydroxybutyrate Urine Color Urine Appearance Urine pH Ur Specific [place] Urine Protein Urine Glucose (UA) Urine Ketones Urine Blood Urine Nitrite Ur Leukocyte Esterase T. vaginalis (PCR) Bact vaginosis (PCR) C. krusei/glabrata (PCR) [facility]rice group (PCR) 10/19/24 10/19/24 10/19/24 08:16 12:09 16:59 WBC RBC Hgb Hct MCV MCH MCHC RDW Plt Count MPV Immature Gran % (Auto) Neut % (Auto) Lymph % (Auto) [place] % (Auto) Eos % (Auto) Baso % (Auto) Lymph # (Auto) [place] # (Auto) Eos # (Auto) Baso # (Auto) Abs Immat Gran (auto) Absolute Neuts (auto) Absolute Nucleated RBC Nucleated RBC % (auto) VBG pH VBG pCO2 VBG pO2 VBG HCO3 VBG O2 Saturation VBG Base Excess Sodium Potassium Chloride Carbon Dioxide Anion Gap BUN Creatinine Estim Creat Clear Calc Estimated GFR POC Glucose 333 H 150 H 253 H Random Glucose Estimat Average Glucose Hemoglobin A1c % Calcium Total Bilirubin AST ALT Alkaline Phosphatase Total Protein Albumin Triglycerides Cholesterol LDL Cholesterol, Calc HDL Cholesterol Beta-Hydroxybutyrate Urine Color Urine Appearance Urine pH Ur Specific [place] Urine Protein Urine Glucose (UA) Urine Ketones Urine Blood Urine Nitrite Ur Leukocyte Esterase T. vaginalis (PCR) Bact vaginosis (PCR) C. krusei/glabrata (PCR) [facility] group (PCR) 10/19/24 10/19/24 10/19/24 19:45 21:31 22:38 WBC RBC Hgb Hct MCV MCH MCHC RDW Plt Count MPV Immature Gran % (Auto) Neut % (Auto) Lymph % (Auto) [place] % (Auto) Eos % (Auto) Baso % (Auto) Lymph # (Auto) [place] # (Auto) Eos # (Auto) Baso # (Auto) Abs Immat Gran (auto) Absolute Neuts (auto) Absolute Nucleated RBC Nucleated RBC % (auto) VBG pH VBG pCO2 VBG pO2 VBG HCO3 VBG O2 Saturation VBG Base Excess Sodium 140 Potassium 3.8 Chloride 103 Carbon Dioxide 27 Anion Gap 14 BUN 13 Creatinine 0.93 Estim Creat Clear Calc 58.8 Estimated GFR > 60 POC Glucose 565 H* 405 H* Random Glucose 152 H Estimat Average Glucose Hemoglobin A1c % Calcium 8.8 Total Bilirubin AST ALT Alkaline Phosphatase Total Protein Albumin Triglycerides Cholesterol LDL Cholesterol, Calc HDL Cholesterol Beta-Hydroxybutyrate Urine Color Urine Appearance Urine pH Ur Specific [place] Urine Protein Urine Glucose (UA) Urine Ketones Urine Blood Urine Nitrite Ur Leukocyte Esterase T. vaginalis (PCR) Bact vaginosis (PCR) C. krusei/glabrata (PCR) [facility] group (PCR) 10/19/24 10/20/24 10/20/24 23:39 00:16 01:15 WBC RBC Hgb Hct MCV MCH MCHC RDW Plt Count MPV Immature Gran % (Auto) Neut % (Auto) Lymph % (Auto) [place] % (Auto) Eos % (Auto) Baso % (Auto) Lymph # (Auto) [place] # (Auto) Eos # (Auto) Baso # (Auto) Abs Immat Gran (auto) Absolute Neuts (auto) Absolute Nucleated RBC Nucleated RBC % (auto) VBG pH VBG pCO2 VBG pO2 VBG HCO3 VBG O2 Saturation VBG Base Excess Sodium Potassium Chloride Carbon Dioxide Anion Gap BUN Creatinine Estim Creat Clear Calc Estimated GFR POC Glucose 85 78 101 Random Glucose Estimat Average Glucose Hemoglobin A1c % Calcium Total Bilirubin AST ALT Alkaline Phosphatase Total Protein Albumin Triglycerides Cholesterol LDL Cholesterol, Calc HDL Cholesterol Beta-Hydroxybutyrate Urine Color Urine Appearance Urine pH Ur Specific [place] Urine Protein Urine Glucose (UA) Urine Ketones Urine Blood Urine Nitrite Ur Leukocyte Esterase T. vaginalis (PCR) Bact vaginosis (PCR) C. krusei/glabrata (PCR) [facility] group (PCR) 10/20/24 10/20/24 10/20/24 02:34 07:05 07:53 WBC RBC Hgb Hct MCV MCH MCHC RDW Plt Count MPV Immature Gran % (Auto) Neut % (Auto) Lymph % (Auto) [place] % (Auto) Eos % (Auto) Baso % (Auto) Lymph # (Auto) [place] # (Auto) Eos # (Auto) Baso # (Auto) Abs Immat Gran (auto) Absolute Neuts (auto) Absolute Nucleated RBC Nucleated RBC % (auto) VBG pH VBG pCO2 VBG pO2 VBG HCO3 VBG O2 Saturation VBG Base Excess Sodium Potassium Chloride Carbon Dioxide Anion Gap BUN Creatinine Estim Creat Clear Calc Estimated GFR POC Glucose 259 H 128 H 167 H Random Glucose Estimat Average Glucose Hemoglobin A1c % Calcium Total Bilirubin AST ALT Alkaline Phosphatase Total Protein Albumin Triglycerides Cholesterol LDL Cholesterol, Calc HDL Cholesterol Beta-Hydroxybutyrate Urine Color Urine Appearance Urine pH Ur Specific [place] Urine Protein Urine Glucose (UA) Urine Ketones Urine Blood Urine Nitrite Ur Leukocyte Esterase T. vaginalis (PCR) Bact vaginosis (PCR) C. krusei/glabrata (PCR) [facility] (PCR) 10/20/24 10/20/24 10/20/24 12:18 16:56 20:51 WBC RBC Hgb Hct MCV MCH MCHC RDW Plt Count MPV Immature Gran % (Auto) Neut % (Auto) Lymph % (Auto) [place] % (Auto) Eos % (Auto) Baso % (Auto) Lymph # (Auto) [place] # (Auto) Eos # (Auto) Baso # (Auto) Abs Immat Gran (auto) Absolute Neuts (auto) Absolute Nucleated RBC Nucleated RBC % (auto) VBG pH VBG pCO2 VBG pO2 VBG HCO3 VBG O2 Saturation VBG Base Excess Sodium Potassium Chloride Carbon Dioxide Anion Gap BUN Creatinine Estim Creat Clear Calc Estimated GFR POC Glucose 439 H* 440 H* 166 H Random Glucose Estimat Average Glucose Hemoglobin A1c % Calcium Total Bilirubin AST ALT Alkaline Phosphatase Total Protein Albumin Triglycerides Cholesterol LDL Cholesterol, Calc HDL Cholesterol Beta-Hydroxybutyrate Urine Color Urine Appearance Urine pH Ur Specific [place] Urine Protein Urine Glucose (UA) Urine Ketones Urine Blood Urine Nitrite Ur Leukocyte Esterase T. vaginalis (PCR) Bact vaginosis (PCR) C. krusei/glabrata (PCR) [facility] group (PCR) 10/21/24 10/21/24 10/21/24 08:08 12:06 17:11 WBC RBC Hgb Hct MCV MCH MCHC RDW Plt Count MPV Immature Gran % (Auto) Neut % (Auto) Lymph % (Auto) [place] % (Auto) Eos % (Auto) Baso % (Auto) Lymph # (Auto) [place] # (Auto) Eos # (Auto) Baso # (Auto) Abs Immat Gran (auto) Absolute Neuts (auto) Absolute Nucleated RBC Nucleated RBC % (auto) VBG pH VBG pCO2 VBG pO2 VBG HCO3 VBG O2 Saturation VBG Base Excess Sodium Potassium Chloride Carbon Dioxide Anion Gap BUN Creatinine Estim Creat Clear Calc Estimated GFR POC Glucose 128 H 219 H 135 H Random Glucose Estimat Average Glucose Hemoglobin A1c % Calcium Total Bilirubin AST ALT Alkaline Phosphatase Total Protein Albumin Triglycerides Cholesterol LDL Cholesterol, Calc HDL Cholesterol Beta-Hydroxybutyrate Urine Color Urine Appearance Urine pH Ur Specific [place] Urine Protein Urine Glucose (UA) Urine Ketones Urine Blood Urine Nitrite Ur Leukocyte Esterase T. vaginalis (PCR) Bact vaginosis (PCR) C. krusei/glabrata (PCR) Beatrice group (PCR) 10/21/24 10/22/24 10/22/24 19:39 03:06 07:43 WBC RBC Hgb Hct MCV MCH MCHC RDW Plt Count MPV Immature Gran % (Auto) Neut % (Auto) Lymph % (Auto) [place] % (Auto) Eos % (Auto) Baso % (Auto) Lymph # (Auto) [place] # (Auto) Eos # (Auto) Baso # (Auto) Abs Immat Gran (auto) Absolute Neuts (auto) Absolute Nucleated RBC Nucleated RBC % (auto) VBG pH VBG pCO2 VBG pO2 VBG HCO3 VBG O2 Saturation VBG Base Excess Sodium Potassium Chloride Carbon Dioxide Anion Gap BUN Creatinine Estim Creat Clear Calc Estimated GFR POC Glucose 175 H 237 H 257 H Random Glucose Estimat Average Glucose Hemoglobin A1c % Calcium Total Bilirubin AST ALT Alkaline Phosphatase Total Protein Albumin Triglycerides Cholesterol LDL Cholesterol, Calc HDL Cholesterol Beta-Hydroxybutyrate Urine Color Urine Appearance Urine pH Ur Specific [place] Urine Protein Urine Glucose (UA) Urine Ketones Urine Blood Urine Nitrite Ur Leukocyte Esterase T. vaginalis (PCR) Bact vaginosis (PCR) C. krusei/glabrata (PCR) Beatrice group (PCR) 10/22/24 10/22/24 10/22/24 12:11 16:54 18:39 WBC RBC Hgb Hct MCV MCH MCHC RDW Plt Count MPV Immature Gran % (Auto) Neut % (Auto) Lymph % (Auto) [place] % (Auto) Eos % (Auto) Baso % (Auto) Lymph # (Auto) [place] # (Auto) Eos # (Auto) Baso # (Auto) Abs Immat Gran (auto) Absolute Neuts (auto) Absolute Nucleated RBC Nucleated RBC % (auto) VBG pH VBG pCO2 VBG pO2 VBG HCO3 VBG O2 Saturation VBG Base Excess Sodium Potassium Chloride Carbon Dioxide Anion Gap BUN Creatinine Estim Creat Clear Calc Estimated GFR POC Glucose 81 518 H* 335 H Random Glucose Estimat Average Glucose Hemoglobin A1c % Calcium Total Bilirubin AST ALT Alkaline Phosphatase Total Protein Albumin Triglycerides Cholesterol LDL Cholesterol, Calc HDL Cholesterol Beta-Hydroxybutyrate Urine Color Urine Appearance Urine pH Ur Specific [place] Urine Protein Urine Glucose (UA) Urine Ketones Urine Blood Urine Nitrite Ur Leukocyte Esterase T. vaginalis (PCR) Bact vaginosis (PCR) C. krusei/glabrata (PCR) Beatrice group (PCR) 10/22/24 10/22/24 10/23/24 20:17 22:10 00:03 WBC RBC Hgb Hct MCV MCH MCHC RDW Plt Count MPV Immature Gran % (Auto) Neut % (Auto) Lymph % (Auto) [place] % (Auto) Eos % (Auto) Baso % (Auto) Lymph # (Auto) [place] # (Auto) Eos # (Auto) Baso # (Auto) Abs Immat Gran (auto) Absolute Neuts (auto) Absolute Nucleated RBC Nucleated RBC % (auto) VBG pH VBG pCO2 VBG pO2 VBG HCO3 VBG O2 Saturation VBG Base Excess Sodium Potassium Chloride Carbon Dioxide Anion Gap BUN Creatinine Estim Creat Clear Calc Estimated GFR POC Glucose 546 H* 171 H 40 L* Random Glucose Estimat Average Glucose Hemoglobin A1c % Calcium Total Bilirubin AST ALT Alkaline Phosphatase Total Protein Albumin Triglycerides Cholesterol LDL Cholesterol, Calc HDL Cholesterol Beta-Hydroxybutyrate Urine Color Urine Appearance Urine pH Ur Specific [place] Urine Protein Urine Glucose (UA) Urine Ketones Urine Blood Urine Nitrite Ur Leukocyte Esterase T. vaginalis (PCR) Bact vaginosis (PCR) C. krusei/glabrata (PCR) Beatrice group (PCR) 10/23/24 10/23/24 10/23/24 00:25 00:47 01:11 WBC RBC Hgb Hct MCV MCH MCHC RDW Plt Count MPV Immature Gran % (Auto) Neut % (Auto) Lymph % (Auto) [place] % (Auto) Eos % (Auto) Baso % (Auto) Lymph # (Auto) [place] # (Auto) Eos # (Auto) Baso # (Auto) Abs Immat Gran (auto) Absolute Neuts (auto) Absolute Nucleated RBC Nucleated RBC % (auto) VBG pH VBG pCO2 VBG pO2 VBG HCO3 VBG O2 Saturation VBG Base Excess Sodium Potassium Chloride Carbon Dioxide Anion Gap BUN Creatinine Estim Creat Clear Calc Estimated GFR POC Glucose 98 78 143 H Random Glucose Estimat Average Glucose Hemoglobin A1c % Calcium Total Bilirubin AST ALT Alkaline Phosphatase Total Protein Albumin Triglycerides Cholesterol LDL Cholesterol, Calc HDL Cholesterol Beta-Hydroxybutyrate Urine Color Urine Appearance Urine pH Ur Specific [place] Urine Protein Urine Glucose (UA) Urine Ketones Urine Blood Urine Nitrite Ur Leukocyte Esterase T. vaginalis (PCR) Bact vaginosis (PCR) C. krusei/glabrata (PCR) Beatrice group (PCR) 10/23/24 10/23/24 04:00 06:14 WBC RBC Hgb Hct MCV MCH MCHC RDW Plt Count MPV Immature Gran % (Auto) Neut % (Auto) Lymph % (Auto) [place] % (Auto) Eos % (Auto) Baso % (Auto) Lymph # (Auto) [place] # (Auto) Eos # (Auto) Baso # (Auto) Abs Immat Gran (auto) Absolute Neuts (auto) Absolute Nucleated RBC Nucleated RBC % (auto) VBG pH VBG pCO2 VBG pO2 VBG HCO3 VBG O2 Saturation VBG Base Excess Sodium Potassium Chloride Carbon Dioxide Anion Gap BUN Creatinine Estim Creat Clear Calc Estimated GFR POC Glucose 115 197 H Random Glucose Estimat Average Glucose Hemoglobin A1c % Calcium Total Bilirubin AST ALT Alkaline Phosphatase Total Protein Albumin Triglycerides Cholesterol LDL Cholesterol, Calc HDL Cholesterol Beta-Hydroxybutyrate Urine Color Urine Appearance Urine pH Ur Specific [place] Urine Protein Urine Glucose (UA) Urine Ketones Urine Blood Urine Nitrite Ur Leukocyte Esterase T. vaginalis (PCR) Bact vaginosis (PCR) C. krusei/glabrata (PCR) Beatrice group (PCR) Airway Mallampati Class: II TM Dist: >3cm Neck ROM: Full Partial: Upper Heart: rrr Lungs: cta Assessment and Plan Assessment Anesthesia Assessment: Anesthesia Plan Discussed and Chart Reviewed Final Anesthetic Review Family History of Problems with Anesthesia: No History of Problems with Anesthesia: No NPO: Yes ASA Class: III Final Preanesthetic Review: No Changes in Pt Med Stat, Meds/Allgs Chart Reviewed and Consent Obtained/Reviewed Patient Risk: Intermediate Procedure Risk: Intermediate Anesthetic Plan Anesthetic Plan: GA Disposition: Standard PACU
--- NOTE | 2024-10-23 08:00 | MHC.SHP ---
Pre-Procedural Eval Section A - 24 Hr Update-Section A only Date of Service: 10/23/24 The patient is an INPATIENT: Yes Changes since office visit: No Cold of Flu in the past 2 weeks Section B - Complete if H&P > 30 days Chief Complaint: Suicidal Allergies: Allergies Allergy/AdvReac Type Severity Reaction Status Date / Time Penicillins AdvReac Rash Verified 10/14/24 02:15 Sulfa (Sulfonamide AdvReac Rash Verified 10/14/24 02:15 Antibiotics) Plan I have reviewed the history and physical and performed a pertinent physical examination on my patient. No changes have occurred unless specified. Time Spent With Patient Time: Total time managing care of this patient today ____ minutes.
--- NOTE | 2024-10-23 08:02 | HO.ECTPROC ---
ECT Procedure Note Diagnosis/Treatment Date of Service: 10/24/24 Diagnosis: Major Depressive Disorder Current Treatment Number: 1 Treatment: Series Interval Clinical Notes: Pt with hx of response to ect last dec stated tolerated well . Hx of mi had no s/e with prior tx. Pt gave informed consent for tx required lma Time: Total time managing care of this patient today ____ minutes. ECT Settings Device: THYMATRON DGx Program/Pulse Width: 0.25 Energy Percent: 100 Seizure Duration By EEG (in seconds): 100 Ancillary Medications Anti-emetics: Zofran - Pre ECT Miscillaneous Medications: Propofol (30) Airway Management Airway Management: LMA Treatment Recommendations Energy Percent: 60
[2024-10-23 09:12] LABS: Glucose, Whole Blood 271 mg/dL (60-115)
[2024-10-23] MEDS: Aspirin Enteric Coated 81 MG TABLET.DR PO (09:32)
[2024-10-23] MEDS: Insulin Glargine,Hum.rec.anlog 100 UNIT/ML 10 ML VIAL 15 UNIT SUBCUT (09:32)
--- NOTE | 2024-10-23 09:38 | P.PNPSI_ITS ---
Subjective Subjective Date of Service: 10/23/24 Reason For Visit: Suicidal Subjective Notes: Conditional Voluntary Healthcare Proxy: No Guardianship: No Medical Problems Affecting Mental Status: Yes Interim History: ECT #1 completed. Pt up and in milieu this afternoon with mild confusion. Appears improved, clearer, less ambivalent after one treatment. Hospitalist team working with labile blood sugar levels. Pt met with tw and discussed her previous experiences with ECT- private room, medical floor, TV, without chaotic milieu. States she would like to return to [facility] for this treatment or go to a medical unit at [facility] and continue tx. Medication Compliance: Yes Side effects from medications: No Attending Groups: No Review of Systems Acute medical concerns: Yes unstable diabetes Review of Systems Review of Systems unstable diabetes Mental Status Exam Mental Status Exam Patient Appearance: Fatigued Patient Orientation: Person, Place and Situation Level of Consciousness: Alert Patient Behavior: Talkative, Fatigued and Good Eye Contact Mood Description: Withdrawn and Constricted Affect Description: Constricted Patient Cognition Impaired: Yes Ability to Follow Directions: Good Speech Pattern: Spontaneous Speech Memory Description: Episodic Impaired Hallucinations: None Delusions: Paranoid Ideation Thought Process: Confusion (post ECT #1 Rx) Thought Content: positive for [place] and positive for Circumstantial Judgement: Fair Diagnostics Vital Signs (24Hr): Vital Signs - 24 hr 10/22/24 20:00 10/23/24 06:46 10/23/24 08:33 Temperature 99.1 F 97.8 F 97.5 F Pulse Rate 86 67 71 Respiratory Rate 15 18 14 Blood Pressure 96/54 L 116/63 169/78 H Pulse Oximetry 98 96 92 Oxygen Delivery Method Room Air Simple Mask Oxygen Flow Rate 6 10/23/24 08:38 10/23/24 08:43 10/23/24 08:48 Temperature Pulse Rate 76 79 72 Respiratory Rate 16 17 21 H Blood Pressure 156/76 H 154/75 H 144/72 H Pulse Oximetry 91 L 93 93 Oxygen Delivery Method Simple Mask Simple Mask Nasal Cannula Oxygen Flow Rate 6 6 2 10/23/24 09:03 10/23/24 09:18 Temperature 97.1 F Pulse Rate 77 76 Respiratory Rate 14 18 Blood Pressure 147/73 H 133/67 Pulse Oximetry 93 94 Oxygen Delivery Method Nasal Cannula with ETCO2 Room Air Oxygen Flow Rate 2 BMI result Body Mass Index 26.6 Labs 10/14/24 12:38 10/24/24 10:44 Labs: Laboratory Results - last 48 hr 10/21/24 10/21/24 10/21/24 12:06 17:11 19:39 POC Glucose 219 H 135 H 175 H 10/22/24 10/22/24 10/22/24 03:06 07:43 12:11 POC Glucose 237 H 257 H 81 10/22/24 10/22/24 10/22/24 16:54 18:39 20:17 POC Glucose 518 H* 335 H 546 H* 10/22/24 10/23/24 10/23/24 22:10 00:03 00:25 POC Glucose 171 H 40 L* 98 10/23/24 10/23/24 10/23/24 00:47 01:11 04:00 POC Glucose 78 143 H 115 10/23/24 10/23/24 06:14 09:09 POC Glucose 197 H 271 H Medications Medications Current Medications Acetaminophen (Acetaminophen 325 Mg Tablet) 650 mg PO Q6H PRN PRN Reason: Headache/Pain, Scale 1-10 Al Hydroxide/Mg Hydroxide (Magnesium Hydrox/Alum Hydrox 30 Ml Oral.Susp) 30 ml PO Q6H PRN PRN Reason: Heartburn/Nausea Aspirin (Aspirin Enteric Coated 81 Mg Tablet.) 81 mg PO DAILY [facility] Last Admin: 10/23/24 09:32 Dose: 81 mg Bacitracin (Bacitracin Oint 14 Gm Tube) 1 appl TOPICAL BID FARRAH; Protocol Stop: 10/23/24 12:59 Last Admin: 10/22/24 22:29 Dose: Not Given Capsaicin (Capsaicin 0.025% Cream 60 Gm Tube) 1 appl TOPICAL QID PRN; Protocol PRN Reason: muscle aches Dextrose (Dextrose 50 % 25 Gm/50 Ml Syringe) 25 gm IVPUSH Q15M PRN; Protocol PRN Reason: per Hypoglycemia Standing Ord. Docusate Sodium (Docusate Sodium 100 Mg Capsule) 100 mg PO BEDTIME PRN PRN Reason: Constipation Fluoxetine HCl (Fluoxetine Hcl 20 Mg Capsule) 40 mg PO DAILY [facility] Last Admin: 10/23/24 09:32 Dose: 40 mg Glucose (Glucose Gel 15 Gm Gel..Gram.) 15 gm PO Q15M PRN; Protocol PRN Reason: per Hypoglycemia Standing Ord. Last Admin: 10/23/24 00:07 Dose: 15 gm Hydroxyzine HCl (Hydroxyzine Hcl 25 Mg Tablet) 25 mg PO Q6H PRN PRN Reason: mild anxiety Last Admin: 10/21/24 22:02 Dose: 25 mg Lactated Ringer's (Lr) 1,000 mls @ 50 mls/hr IVCONT .Q20H [facility] Last Admin: 10/23/24 09:28 Dose: Not Given Ibuprofen (Ibuprofen 800 Mg Tablet) 800 mg PO Q8H PRN PRN Reason: Pain, Mild (Pain Scale 1-3) Insulin Glargine (Insulin Glargine,Hum.Rec.Anlog 100 Unit/Ml 10 Ml Vial) 15 unit SUBCUT DAILY [facility] Last Admin: 10/23/24 09:32 Dose: 15 unit Insulin Human Lispro (Insulin Lispro 100 Unit/Ml 3 Ml Vial) 0 unit SUBCUT TIDAC [facility]; Protocol Last Admin: 10/22/24 17:14 Dose: 12 unit Levothyroxine Sodium (Levothyroxine Sodium 150 Mcg Tablet) 150 mcg PO DAILY@0600 [facility] Last Admin: 10/23/24 06:25 Dose: 150 mcg Lorazepam (Lorazepam 0.5 Mg Tablet) 0.5 mg PO DAILY PRN PRN Reason: Anxiety Last Admin: 10/22/24 12:54 Dose: 0.5 mg Magnesium Hydroxide (Milk Of Magnesia 30 Ml Oral.Susp) 30 ml PO DAILY PRN PRN Reason: Constipation Last Admin: 10/15/24 12:22 Dose: 30 ml Naloxone HCl (Naloxone Hcl 0.4 Mg/Ml Vial) 0.04 mg IVPUSH Q5M PRN PRN Reason: Excessive sedation or RR < 8 Nicotine Polacrilex (Nicotine Polacrilex 2 Mg Gum) 4 mg BUCCAL Q2H PRN PRN Reason: Nicotine Cravings Non-Formulary Medication (Evolocumab [Repatha Syringe]) 140 mg SUBCUT Q14D [facility] Olanzapine (Olanzapine 10 Mg Tablet) 10 mg PO BEDTIME [facility] Last Admin: 10/22/24 22:28 Dose: 10 mg Polyethylene Glycol (Polyethylene Glycol 3350 17 Gm Powd.Pack) 17 gm PO DAILY PRN PRN Reason: Constipation Simethicone (Simethicone 80 Mg Tab.Chew) 80 mg PO QIDWMHS PRN PRN Reason: flatulance Trazodone HCl (Trazodone Hcl 50 Mg Tablet) 50 mg PO BEDTIME MRX1 PRN PRN Reason: Insomnia Last Admin: 10/21/24 22:02 Dose: 50 mg Trazodone HCl (Trazodone Hcl 50 Mg Tablet) 50 mg PO BEDTIME FARRAH Last Admin: 10/22/24 22:29 Dose: 50 mg Allergies Allergies Allergy/AdvReac Type Severity Reaction Status Date / Time Penicillins AdvReac Rash Verified 10/14/24 02:15 Sulfa (Sulfonamide AdvReac Rash Verified 10/14/24 02:15 Antibiotics) Assessment & Plan Assessment & Plan (1) Type 1 diabetes: Status: Acute Code(s): E10.9 - Type 1 diabetes mellitus without complications (2) MDD (major depressive disorder), recurrent, severe, with psychosis: Status: Acute Code(s): F33.3 - Major depressive disorder, recurrent, severe with psychotic symptoms Assessment and Plan: 10/20: ECT planned for 10/23. Discussed with pt her initial request to make olanzapine prn and increase in difficulty since admit. Will restart olanzapine at 10 mg HS. She agrees with this plan and we discussed ongoing assessment to have her on as slim a regime as possible. (3) PTSD (post-traumatic stress disorder): Status: Acute Code(s): F43.10 - Post-traumatic stress disorder, unspecified Plan 49-year-old female with a past medical history of type 1 diabetes, major depressive disorder, Suicide attempts times two requiring hospitalizations last in 2023, MARTELL, Hypothyroidism, GERD, PTSD, CAD, status post PA in 2018 with 2 drug-eluting stents in LAD, ischemic cardiomyopathy history of gastric bypass surgery, iron deficiency anemia admitted to [facility] for treatment of MDD, MARTELL and PTSD. Patient is being seen for clearance for ECT treatment. Patient is a 49 year old female with hx of MDD, MARTELL and PTSD who presented to ER with her d/t suicidal ideation secondary increased anxiety and racing thoughts. Hospital course: 10/15: Keeping to self. Met with patient and , padma Campbell. Patient's brought in discharge summary from last inpatient hospitalization; placed in chart. He reports patient is usually not this forgetful and thought blocking . would like to set up family meeting with her director social and provider on Wednesday to discuss treatment; he was educated to call unit on Wednesday to set up with primary team. Patient continues with some thought blocking during conversation. Presents less confused than yesterday. She did not recall meeting with T/W yesterday. Patient reports she believes she needs ECT; she has previously received 7 treatments at her last hospitalization and feels it helped her. Patient denies SI/HI/VH/AH. Continue tx plan. 10/16: continue current tx plan. 10/18: Diflucan x 1 dose ECT consult is pending 10/19: ECT consult completed. Pt ambivalent, yet reports she feels it is needed 10/21 Patient reports that she is depressed but then says her depression is less because she is relaxed; but then she says her depression is not better; patient with odd affect, sitting, smiling at poem writer and with some trouble fully articulating her thoughts. She agrees with ECT which she said she has had before and thinks it was helpful. -proceed with plan for ECT 10/22 Patient little difficult with which to engage.? Starts and stops sentences, smiling;? she says that she smells alcohol on the unit.? Patient slept; says she is ready for ECT tomorrow 10/23 ECT #1 completed. Pt looking for DC to [facility]. Finds milieu overstimulating at this time. Continue rx Plan: 15 minute safety checks continue home medications per records pt has hx of taking zyprexa TID. Start: Zyprexa 5mg PO bedtime. obtain collateral hospitalist consult for blood sugars encourage groups discharge planning Problems: Type 1 diabetes Diagnosed at age 15. Previously wears a insulin pump with basal dosing. Recent A1c 7.2, followed closely by endocrinology as an outpatient Continue with Lantus b.i.d., lispro with meals. And sliding scale insulin Follow blood sugars, recommend diabetic snack at bedtime due to low blood sugars early a.m. Coronary artery disease/ischemic cardiomyopathy/status post PA 2018 with 2 MILKA Follows by Cardiology at [facility] Dr. Emilee English Continue aspirin and patient is on Repatha every 2 weeks Per historical documentation, patient is unable to tolerate beta-blockers. Recent lipid panel within normal limits EKG demonstrates normal sinus rhythm. Hypothyroidism Continue levothyroxine as ordered daily ECT risk stratification Patient without previous problems with anesthesia, has previously undergone ECT 01/2024 without adverse reactions RCRI 1 points due to previous history of PA, no further cardiac workup or treatment indicated at this time. Patient denies any past problems with anesthesia. EKG showing NSR, QTc 460, no evidence of ischemic changes Based on stated PMH, HPI, and physical exam, there are no There are no obvious contraindications to the planned procedure. Thank you for allowing me to participate in the care of this patient. Signing off at this time. Please reconsult of any acute concerns or issues arise Reason for continued inpatient stay Substantial Risk for: rapid decompensation and med/psych decompensation Time Spent With Patient Time: Total time managing care of this patient today ____ minutes.
[2024-10-23 10:40] LABS: Glucose, Whole Blood 595 mg/dL (60-115)
--- NOTE | 2024-10-23 10:47 | HO.PM.IMPN ---
Subjective Subjective Date of Service: 10/23/24 Interval History: Patient is status post ECT treatment with a blood sugar of 595. She was given 12 units of lispro. Blood glucose continued to be elevated at 414, patient received an additional 12 units of lispro per sliding scale. Patient eating and drinking. Blood sugar rechecked at 13:00, noted to be 303. Additional 5 units of lispro ordered. We will avoid increasing Lantus at this time due to risk of hypoglycemia. Patient noted to have a blood glucose of 40 overnight. Review of Systems Denies any shortness of breath, chest pain, dizziness, lightheadedness, abdominal pain or discomfort, nausea vomiting or diarrhea Physical Exam Exam: Exam: CONST: Alert and oriented, in NAD. Well nourished HEENT: Normocephalic, atraumatic, MMM, Eyes clear, Neck supple RESP: Lungs clear, RRR even and regular HEART:,RRR, S1, S2. No murmur, no edema GI:Abdomen Soft NT, ND. + BS times four :Deferred SKIN: Warm dry and intact, no visible lesions or rashes NEURO:CN II-XII Intact bilaterally, Sensation intact. Speech clear PSYCH: Normal affect Vital Signs: Vital Signs: Last Vital Signs Temp 98.5 F 10/23/24 09:38 Pulse 70 10/23/24 09:38 Resp 16 10/23/24 09:38 BP 130/74 10/23/24 09:38 Pulse Ox 98 10/23/24 09:38 O2 Del Method Room Air 10/23/24 09:18 O2 Flow Rate 2 10/23/24 09:03 BMI result Body Mass Index 26.6 Objective Data Active Medications Acetaminophen (Acetaminophen 325 Mg Tablet) 650 mg PO Q6H PRN PRN Reason: Headache/Pain, Scale 1-10 Al Hydroxide/Mg Hydroxide (Magnesium Hydrox/Alum Hydrox 30 Ml Oral.Susp) 30 ml PO Q6H PRN PRN Reason: Heartburn/Nausea Aspirin (Aspirin Enteric Coated 81 Mg Tablet.) 81 mg PO DAILY [facility] Last Admin: 10/23/24 09:32 Dose: 81 mg Documented By: DAVID Bacitracin (Bacitracin Oint 14 Gm Tube) 1 appl TOPICAL BID [facility]; Protocol Stop: 10/23/24 12:59 Last Admin: 10/22/24 22:29 Dose: Not Given Documented By: MAKEDA Non-Admin Reason: Patient Refused Capsaicin (Capsaicin 0.025% Cream 60 Gm Tube) 1 appl TOPICAL QID PRN; Protocol PRN Reason: muscle aches Dextrose (Dextrose 50 % 25 Gm/50 Ml Syringe) 25 gm IVPUSH Q15M PRN; Protocol PRN Reason: per Hypoglycemia Standing Ord. Docusate Sodium (Docusate Sodium 100 Mg Capsule) 100 mg PO BEDTIME PRN PRN Reason: Constipation Fluoxetine HCl (Fluoxetine Hcl 20 Mg Capsule) 40 mg PO DAILY [facility] Last Admin: 10/23/24 09:32 Dose: 40 mg Documented By: DAVID Glucose (Glucose Gel 15 Gm Gel..Gram.) 15 gm PO Q15M PRN; Protocol PRN Reason: per Hypoglycemia Standing Ord. Last Admin: 10/23/24 00:07 Dose: 15 gm Documented By: MAKEDA Hydroxyzine HCl (Hydroxyzine Hcl 25 Mg Tablet) 25 mg PO Q6H PRN PRN Reason: mild anxiety Last Admin: 10/21/24 22:02 Dose: 25 mg Documented By: MCKENNA Lactated Ringer's (Lr) 1,000 mls @ 50 mls/hr IVCONT .Q20H [facility] Last Admin: 10/23/24 09:28 Dose: Not Given Documented By: DAVID Non-Admin Reason: Medication Discontinued Ibuprofen (Ibuprofen 800 Mg Tablet) 800 mg PO Q8H PRN PRN Reason: Pain, Mild (Pain Scale 1-3) Last Admin: 10/23/24 10:46 Dose: 800 mg Documented By: DAVID Insulin Glargine (Insulin Glargine,Hum.Rec.Anlog 100 Unit/Ml 10 Ml Vial) 15 unit SUBCUT DAILY [facility] Last Admin: 10/23/24 09:32 Dose: 15 unit Documented By: DAVID Insulin Human Lispro (Insulin Lispro 100 Unit/Ml 3 Ml Vial) 0 unit SUBCUT TIDAC [facility]; Protocol Last Admin: 10/23/24 10:44 Dose: 12 unit Documented By: DAVID Comments: CAW aware and contacting hospitalist for stat consult Insulin Human Lispro (Insulin Lispro 100 Unit/Ml 3 Ml Vial) 10 unit SUBCUT ONCE ONE Stop: 10/23/24 10:45 Levothyroxine Sodium (Levothyroxine Sodium 150 Mcg Tablet) 150 mcg PO DAILY@0600 [facility] Last Admin: 10/23/24 06:25 Dose: 150 mcg Documented By: MAKEDA Lorazepam (Lorazepam 0.5 Mg Tablet) 0.5 mg PO DAILY PRN PRN Reason: Anxiety Last Admin: 10/22/24 12:54 Dose: 0.5 mg Documented By: DAVID Magnesium Hydroxide (Milk Of Magnesia 30 Ml Oral.Susp) 30 ml PO DAILY PRN PRN Reason: Constipation Last Admin: 10/15/24 12:22 Dose: 30 ml Documented By: NACHO Naloxone HCl (Naloxone Hcl 0.4 Mg/Ml Vial) 0.04 mg IVPUSH Q5M PRN PRN Reason: Excessive sedation or RR < 8 Nicotine Polacrilex (Nicotine Polacrilex 2 Mg Gum) 4 mg BUCCAL Q2H PRN PRN Reason: Nicotine Cravings Non-Formulary Medication (Evolocumab [Repatha Syringe]) 140 mg SUBCUT Q14D [facility] Olanzapine (Olanzapine 10 Mg Tablet) 10 mg PO BEDTIME [facility] Last Admin: 10/22/24 22:28 Dose: 10 mg Documented By: MAKEDA Polyethylene Glycol (Polyethylene Glycol 3350 17 Gm Powd.Pack) 17 gm PO DAILY PRN PRN Reason: Constipation Simethicone (Simethicone 80 Mg Tab.Chew) 80 mg PO QIDWMHS PRN PRN Reason: flatulance Trazodone HCl (Trazodone Hcl 50 Mg Tablet) 50 mg PO BEDTIME MRX1 PRN PRN Reason: Insomnia Last Admin: 10/21/24 22:02 Dose: 50 mg Documented By: MCKENNA Trazodone HCl (Trazodone Hcl 50 Mg Tablet) 50 mg PO BEDTIME [facility] Last Admin: 10/22/24 22:29 Dose: 50 mg Documented By: MAKEDA Labs 10/14/24 12:38 10/19/24 22:38 Labs: Laboratory Results - last 24 hr 10/22/24 10/22/24 10/22/24 12:11 16:54 18:39 POC Glucose 81 518 H* 335 H 10/22/24 10/22/24 10/23/24 20:17 22:10 00:03 POC Glucose 546 H* 171 H 40 L* 10/23/24 10/23/24 10/23/24 00:25 00:47 01:11 POC Glucose 98 78 143 H 10/23/24 10/23/24 10/23/24 04:00 06:14 09:09 POC Glucose 115 197 H 271 H 10/23/24 10:37 POC Glucose 595 H* Assessment and Plan (1) Type 1 diabetes: Status: Acute Plan 49-year-old female with a past medical history of type 1 diabetes, major depressive disorder, Suicide attempts times two requiring hospitalizations last in 2023, MARTELL, Hypothyroidism, GERD, PTSD, CAD, status post CO in 2018 with 2 drug-eluting stents in LAD, ischemic cardiomyopathy history of gastric bypass surgery, iron deficiency anemia admitted to for treatment of MDD, MARTELL and PTSD. Patient is being seen for clearance for ECT treatment. MDD/GERD/SI Treatment per psychiatric team Blood sugar elevated after ECT treatment likely related to stress Type 1 diabetes Diagnosed at age 15. Previously wears a insulin pump with basal dosing. Recent A1c 7.2, followed closely by endocrinology as an outpatient Increase Lantus to 20U daily. Lispro sliding scale insulin Follow blood sugars, recommend diabetic snack at bedtime due to low blood sugars early a.m. Zyprexa can also cause hyperglycemia. Coronary artery disease/ischemic cardiomyopathy/status post CO 2018 with 2 MILKA Follows by Cardiology at [facility] Dr. Emilee English Continue aspirin and patient is on Repatha every 2 weeks Per historical documentation, patient is unable to tolerate beta-blockers. Recent lipid panel within normal limits EKG demonstrates normal sinus rhythm. Hypothyroidism Continue levothyroxine as ordered daily Thank you for allowing me to participate in the care of this patient. We will continue to follow as needed. Please reconsult of any acute concerns or issues arise Quality Stroke Does the patient have a stroke diagnosis?: No VTE Prior VTE?: No VTE Risk Level:: Medical - low VTE Device Contraindication: Treatment Not Indicated VTE Drug Contraindication: Treatment Not Indicated
[2024-10-23 12:24] LABS: Glucose, Whole Blood 414 mg/dL (60-115)
[2024-10-23 12:37] LABS: Glucose, Whole Blood 376 mg/dL (60-115)
[2024-10-23 13:03] LABS: Glucose, Whole Blood 303 mg/dL (60-115)
[2024-10-23 15:01] LABS: Glucose, Whole Blood 71 mg/dL (60-115)
[2024-10-23 16:48] LABS: Glucose, Whole Blood 296 mg/dL (60-115)
--- NOTE | 2024-10-23 18:13 | PC.NURSE ---
Ramses was unable to tell this nurse where she wanted her dinner tray placed. She was sitting at the patient phones at the time, not using them. This nurse said she would put the tray in her room. She acknowledged tw. A short time later, she was observed standing outside 514, holding a food tray that had been partially eaten. When addressed, she said this isn't my tray? , she was informed that 514 wasn't her room and no that isnt her tray as her tray was inside her room. When the point was emphasized to her she replied I know I am in 509 but I don't know if I am coming or going. the old food tray was taken from her and she entered the appropriate room.
[2024-10-23 21:03] LABS: Glucose, Whole Blood 58 mg/dL (60-115)
[2024-10-23] MEDS: Magnesium Hydrox/Alum Hydrox 30 ML ORAL.SUSP PO (21:22)
[2024-10-23 21:25] LABS: Glucose, Whole Blood 166 mg/dL (60-115)
--- NOTE | 2024-10-23 21:47 | PC.NURSE ---
Patients HS blood glucose was 58 at 20:58. Diabetic protocol followed. Patient was given one tuna fish sandwich and applesauce to consume. BS was rechecked at 22:15 and was 166. call center analyst provider Akin Akers MD made aware. No new orders were given.
[2024-10-24 02:42] LABS: Glucose, Whole Blood > 600 mg/dL (60-115)
[2024-10-24 02:45] VITALS: BP 132/61; PULSE 77; O2SAT 94
[2024-10-24 03:05] LABS: Glucose, Whole Blood > 600 mg/dL (60-115)
--- NOTE | 2024-10-24 03:35 | PC.NURSE ---
At 2:45 patient c/o feeling lethargic. She reports H/A and ears are ringing. Patient is unsteady on her feet and 2 person was required to ambulate. VS and blood glucose were checked. VS WNL (as documented) BS reading HI >600. On-call provider Akin Akers MD notified as well as Hospitalist Rylie. Per hospitalist recheck BS (Reading was the same HI >600) and give Lispro 10ux now. STAT lab work to be drawn and if Anion Gap 18/20 BiCarb <15/17 notify right away. BS to be rechecked in 2 hours. Encourage patient to drink at least 1 Liter of water. Notify hospitalist of results. Orders read back X3 for complete clarity and accuracy.
[2024-10-24 04:10] LABS: Anion Gap 12 (12-20); Blood Urea Nitrogen 23 mg/dL (9-16); Calcium 8.1 mg/dL (8.4-10.2); Carbon Dioxide 25 mmol/L (22-29); Chloride 99 mmol/L (96-108); Creatinine Clr Calc Pharmacy 53.1; Estimated Glomerular Filt Rate 57; Potassium 4.3 mmol/L (3.3-5.1); Sodium 132 mmol/L (135-145)
[2024-10-24 05:23] LABS: Glucose, Whole Blood 264 mg/dL (60-115)
[2024-10-24 08:00] VITALS: BP 103/60; PULSE 81; RESP 16; TEMP 36.4; O2SAT 97
[2024-10-24 08:02] LABS: Glucose, Whole Blood 167 mg/dL (60-115)
[2024-10-24 09:00] LABS: Anion Gap 14 (12-20); Blood Urea Nitrogen 19 mg/dL (9-16); Calcium 8.3 mg/dL (8.4-10.2); Carbon Dioxide 28 mmol/L (22-29); Chloride 102 mmol/L (96-108); Creatinine Clr Calc Pharmacy 60.8; Estimated Glomerular Filt Rate > 60; Potassium 3.8 mmol/L (3.3-5.1); Sodium 140 mmol/L (135-145)
[2024-10-24] MEDS: Insulin Glargine,Hum.rec.anlog 100 UNIT/ML 10 ML VIAL 20 UNIT SUBCUT (09:05)
[2024-10-24] MEDS: Aspirin Enteric Coated 81 MG TABLET.DR PO (09:06)
[2024-10-24] MEDS: Magnesium Hydrox/Alum Hydrox 30 ML ORAL.SUSP PO (09:07)
--- NOTE | 2024-10-24 09:48 | HO.PM.IMPN ---
Subjective Subjective Date of Service: 10/24/24 Interval History: Patient continues with labile blood sugars, blood sugar was greater than 600 overnight, patient received coverage overnight. On exam she has no polyuria, polydypsia, lethargy or other concerning symptoms. Repeat beta hydroxybutyrate 0.08. 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 Calle at [facility]. Recommendations to keep blood sugar goal between 200 and 300 to avoid hypoglycemic episodes new orders for Lantus 18 units in a.m., Lispro 6 units with each meal, 3 units with HS snack and 3 units prior to ECT treatments. Psychiatric team made aware. Review of Systems Denies any shortness of breath, chest pain, dizziness, lightheadedness, abdominal pain or discomfort, nausea vomiting or diarrhea Physical Exam Exam: Exam: CONST: Alert and oriented, in NAD. Well nourished HEENT: Normocephalic, atraumatic, MMM, Eyes clear, Neck supple RESP: Lungs clear, RRR even and regular HEART:,RRR, S1, S2. No edema GI:Abdomen Soft NT, ND. + BS times four :Deferred SKIN: Warm dry and intact, no visible lesions or rashes NEURO:CN II-XII Intact bilaterally, Sensation intact. Speech clear PSYCH: Normal affect Vital Signs: Vital Signs: Last Vital Signs Temp 97.6 F 10/24/24 08:00 Pulse 81 10/24/24 08:00 Resp 16 10/24/24 08:00 BP 103/60 10/24/24 08:00 Pulse Ox 97 10/24/24 08:00 O2 Del Method Room Air 10/24/24 08:00 O2 Flow Rate 2 10/23/24 09:03 BMI result Body Mass Index 26.6 Objective Data Active Medications Acetaminophen (Acetaminophen 325 Mg Tablet) 650 mg PO Q6H PRN PRN Reason: Headache/Pain, Scale 1-10 Al Hydroxide/Mg Hydroxide (Magnesium Hydrox/Alum Hydrox 30 Ml Oral.Susp) 30 ml PO Q6H PRN PRN Reason: Heartburn/Nausea Last Admin: 10/24/24 09:07 Dose: 30 ml Documented By: RICHMOND Aspirin (Aspirin Enteric Coated 81 Mg Tablet.) 81 mg PO DAILY [facility] Last Admin: 10/24/24 09:06 Dose: 81 mg Documented By: RICHMOND Capsaicin (Capsaicin 0.025% Cream 60 Gm Tube) 1 appl TOPICAL QID PRN; Protocol PRN Reason: muscle aches Dextrose (Dextrose 50 % 25 Gm/50 Ml Syringe) 25 gm IVPUSH Q15M PRN; Protocol PRN Reason: per Hypoglycemia Standing Ord. Docusate Sodium (Docusate Sodium 100 Mg Capsule) 100 mg PO BEDTIME PRN PRN Reason: Constipation Fluoxetine HCl (Fluoxetine Hcl 20 Mg Capsule) 40 mg PO DAILY [facility] Last Admin: 10/24/24 09:06 Dose: 40 mg Documented By: RICHMOND Glucose (Glucose Gel 15 Gm Gel..Gram.) 15 gm PO Q15M PRN; Protocol PRN Reason: per Hypoglycemia Standing Ord. Last Admin: 10/23/24 00:07 Dose: 15 gm Documented By: MAKEDA Hydroxyzine HCl (Hydroxyzine Hcl 25 Mg Tablet) 25 mg PO Q6H PRN PRN Reason: mild anxiety Last Admin: 10/21/24 22:02 Dose: 25 mg Documented By: MCKENNA Ibuprofen (Ibuprofen 800 Mg Tablet) 800 mg PO Q8H PRN PRN Reason: Pain, Mild (Pain Scale 1-3) Last Admin: 10/23/24 10:46 Dose: 800 mg Documented By: DAVID Insulin Glargine (Insulin Glargine,Hum.Rec.Anlog 100 Unit/Ml 10 Ml Vial) 20 unit SUBCUT DAILY [facility] Last Admin: 10/24/24 09:05 Dose: 20 unit Documented By: RICHMOND Insulin Human Lispro (Insulin Lispro 100 Unit/Ml 3 Ml Vial) 0 unit SUBCUT TIDAC [facility]; Protocol Last Admin: 10/24/24 09:04 Dose: 4 unit Documented By: RICHMOND Levothyroxine Sodium (Levothyroxine Sodium 150 Mcg Tablet) 150 mcg PO DAILY@0600 [facility] Last Admin: 10/24/24 06:06 Dose: 150 mcg Documented By: FERN Lorazepam (Lorazepam 0.5 Mg Tablet) 0.5 mg PO DAILY PRN PRN Reason: Anxiety Last Admin: 10/22/24 12:54 Dose: 0.5 mg Documented By: DAVID Magnesium Hydroxide (Milk Of Magnesia 30 Ml Oral.Susp) 30 ml PO DAILY PRN PRN Reason: Constipation Last Admin: 10/15/24 12:22 Dose: 30 ml Documented By: NACHO Naloxone HCl (Naloxone Hcl 0.4 Mg/Ml Vial) 0.04 mg IVPUSH Q5M PRN PRN Reason: Excessive sedation or RR < 8 Nicotine Polacrilex (Nicotine Polacrilex 2 Mg Gum) 4 mg BUCCAL Q2H PRN PRN Reason: Nicotine Cravings Non-Formulary Medication (Evolocumab [Repatha Syringe]) 140 mg SUBCUT Q14D [facility] Olanzapine (Olanzapine 10 Mg Tablet) 10 mg PO BEDTIME [facility] Last Admin: 10/23/24 21:23 Dose: 10 mg Documented By: FERN Polyethylene Glycol (Polyethylene Glycol 3350 17 Gm Powd.Pack) 17 gm PO DAILY PRN PRN Reason: Constipation Simethicone (Simethicone 80 Mg Tab.Chew) 80 mg PO QIDWMHS PRN PRN Reason: flatulance Trazodone HCl (Trazodone Hcl 50 Mg Tablet) 50 mg PO BEDTIME MRX1 PRN PRN Reason: Insomnia Last Admin: 10/21/24 22:02 Dose: 50 mg Documented By: MCKENNA Trazodone HCl (Trazodone Hcl 50 Mg Tablet) 50 mg PO BEDTIME [facility] Last Admin: 10/23/24 21:23 Dose: 50 mg Documented By: FERN Labs 10/14/24 12:38 10/24/24 10:44 Labs: Laboratory Results - last 24 hr 10/23/24 10/23/24 10/23/24 10:37 12:20 12:31 Anion Gap Estim Creat Clear Calc Estimated GFR POC Glucose 595 H* 414 H* 376 H* Random Glucose Calcium 10/23/24 10/23/24 10/23/24 13:00 14:53 16:44 Anion Gap Estim Creat Clear Calc Estimated GFR POC Glucose 303 H 71 296 H Random Glucose Calcium 10/23/24 10/23/24 10/24/24 20:56 21:21 02:40 Anion Gap Estim Creat Clear Calc Estimated GFR POC Glucose 58 L* 166 H > 600 H* Random Glucose Calcium 10/24/24 10/24/24 10/24/24 03:01 03:28 05:19 Anion Gap 12 Estim Creat Clear Calc 53.1 Estimated GFR 57 POC Glucose > 600 H* 264 H Random Glucose 623 H* Calcium 8.1 L D 10/24/24 10/24/24 07:57 08:19 Anion Gap 14 Estim Creat Clear Calc 60.8 Estimated GFR > 60 POC Glucose 167 H Random Glucose 178 H Calcium 8.3 L Assessment and Plan (1) Type 1 diabetes: Status: Acute Plan 49-year-old female with a past medical history of type 1 diabetes, major depressive disorder, Suicide attempts times two requiring hospitalizations last in 2023, MARTELL, Hypothyroidism, GERD, PTSD, CAD, status post CT in 2017 with 2 drug-eluting stents in LAD, ischemic cardiomyopathy history of gastric bypass surgery, iron deficiency anemia admitted to for treatment of MDD, MARTELL and PTSD. Patient is being seen for clearance for ECT treatment. Type 1 diabetes Diagnosed at age 15. Previously wears a insulin pump with basal dosing. Recent A1c 7.2, followed closely by endocrinology as an outpatient Spoke with Dr. Calle patient's primary endocrinology at [facility] Recommendations as follows: Continue Lantus 18 units daily. DC lispro sliding scale. Give lispro 6 units with each meal Give lispro 3 units with HS snack, give lispro 3 units prior to ECT treatments Recommendations to keep blood sugars between 200-300 to avoid hypoglycemia Continue diabetic snack at bedtime due to low blood sugars early a.m. Zyprexa can also cause hyperglycemia. MDD/GERD/SI Treatment per psychiatric team Continues with ECT treatment Coronary artery disease/ischemic cardiomyopathy/status post CT 2018 with 2 MILKA Follows by Cardiology at [facility] Dr. Emilee English Continue aspirin and patient is on Repatha every 2 weeks Per historical documentation, patient is unable to tolerate beta-blockers. Recent lipid panel within normal limits EKG demonstrates normal sinus rhythm. Hypothyroidism Continue levothyroxine as ordered daily Thank you for allowing me to participate in the care of this patient. We will continue to follow. . Please reconsult of any acute concerns or issues arise Quality Stroke Does the patient have a stroke diagnosis?: No VTE Prior VTE?: No VTE Risk Level:: Medical - low VTE Device Contraindication: Treatment Not Indicated VTE Drug Contraindication: Treatment Not Indicated
--- NOTE | 2024-10-24 09:59 | HO.PSYCHPN ---
Subjective Subjective Date of Service: 10/24/24 Reason For Visit: Suicidal Subjective Notes: Conditional Voluntary and 3 Day Healthcare Proxy: No Guardianship: No Medical Problems Affecting Mental Status: No Interim History: I am tired of this. Please make arrangements to send me [place] [facility] Clearer today, focused, determined to discharge. Followed closely by hospitalist team for labile blood sugars-return of insulin pump discussed-pt's hx of self destructive behaviors with the pump considered and as a result it will not be used. Pt filed a TDN. Discussed her requests- no Vega, it is just too much here-all of you are great, I cant take the patients . Requested that we contact the ECT team at [facility] to arrange transfer. Pt asks not to work with Dr. Kj Gardner as she has an active legal action against him. Discussed with Dr. Vasquez. Process for transfer initiated with [facility] ECT service [phone]. Messages left x 2. No return call at this time. Pt is calling as well Medication Compliance: Yes Side effects from medications: No Attending Groups: No Review of Systems Acute medical concerns: Yes labile DM Review of Systems: labile blood sugars Review of Systems Review of Systems labile blood sugar levels Mental Status Exam Mental Status Exam Patient Appearance: Fatigued Patient Orientation: Person, Place and Situation Level of Consciousness: Alert Patient Behavior: Talkative, Fatigued and Good Eye Contact Mood Description: Withdrawn and Constricted Affect Description: Constricted Patient Cognition Impaired: Yes Ability to Follow Directions: Good Speech Pattern: Spontaneous Speech Memory Description: Episodic Impaired Hallucinations: None Delusions: Paranoid Ideation Thought Process: Confusion (post ECT #1 Rx) Thought Content: positive for [place] and positive for Circumstantial Judgement: Fair Diagnostics Vital Signs (24Hr): Vital Signs - 24 hr 10/23/24 20:00 10/24/24 02:45 10/24/24 08:00 Temperature 99.4 F 97.6 F Pulse Rate 80 77 81 Respiratory Rate 18 16 Blood Pressure 107/56 L 132/61 103/60 Pulse Oximetry 95 94 97 Oxygen Delivery Method Room Air Room Air Room Air BMI result Body Mass Index 26.6 Labs 10/14/24 12:38 10/24/24 10:44 Labs: Laboratory Results - last 48 hr 10/22/24 10/22/24 10/22/24 12:11 16:54 18:39 Sodium Potassium Chloride Carbon Dioxide Anion Gap BUN Creatinine Estim Creat Clear Calc Estimated GFR POC Glucose 81 518 H* 335 H Random Glucose Calcium 10/22/24 10/22/24 10/23/24 20:17 22:10 00:03 Sodium Potassium Chloride Carbon Dioxide Anion Gap BUN Creatinine Estim Creat Clear Calc Estimated GFR POC Glucose 546 H* 171 H 40 L* Random Glucose Calcium 10/23/24 10/23/24 10/23/24 00:25 00:47 01:11 Sodium Potassium Chloride Carbon Dioxide Anion Gap BUN Creatinine Estim Creat Clear Calc Estimated GFR POC Glucose 98 78 143 H Random Glucose Calcium 10/23/24 10/23/24 10/23/24 04:00 06:14 09:09 Sodium Potassium Chloride Carbon Dioxide Anion Gap BUN Creatinine Estim Creat Clear Calc Estimated GFR POC Glucose 115 197 H 271 H Random Glucose Calcium 10/23/24 10/23/24 10/23/24 10:37 12:20 12:31 Sodium Potassium Chloride Carbon Dioxide Anion Gap BUN Creatinine Estim Creat Clear Calc Estimated GFR POC Glucose 595 H* 414 H* 376 H* Random Glucose Calcium 10/23/24 10/23/24 10/23/24 13:00 14:53 16:44 Sodium Potassium Chloride Carbon Dioxide Anion Gap BUN Creatinine Estim Creat Clear Calc Estimated GFR POC Glucose 303 H 71 296 H Random Glucose Calcium 10/23/24 10/23/24 10/24/24 20:56 21:21 02:40 Sodium Potassium Chloride Carbon Dioxide Anion Gap BUN Creatinine Estim Creat Clear Calc Estimated GFR POC Glucose 58 L* 166 H > 600 H* Random Glucose Calcium 10/24/24 10/24/24 10/24/24 03:01 03:28 05:19 Sodium 132 L Potassium 4.3 Chloride 99 Carbon Dioxide 25 Anion Gap 12 BUN 23 H Creatinine 1.03 Estim Creat Clear Calc 53.1 Estimated GFR 57 POC Glucose > 600 H* 264 H Random Glucose 623 H* Calcium 8.1 L D 10/24/24 10/24/24 07:57 08:19 Sodium 140 Potassium 3.8 Chloride 102 Carbon Dioxide 28 Anion Gap 14 BUN 19 H Creatinine 0.90 Estim Creat Clear Calc 60.8 Estimated GFR > 60 POC Glucose 167 H Random Glucose 178 H Calcium 8.3 L Medications Medications Current Medications Acetaminophen (Acetaminophen 325 Mg Tablet) 650 mg PO Q6H PRN PRN Reason: Headache/Pain, Scale 1-10 Al Hydroxide/Mg Hydroxide (Magnesium Hydrox/Alum Hydrox 30 Ml Oral.Susp) 30 ml PO Q6H PRN PRN Reason: Heartburn/Nausea Last Admin: 10/24/24 09:07 Dose: 30 ml Aspirin (Aspirin Enteric Coated 81 Mg Tablet.Dr) 81 mg PO DAILY [facility] Last Admin: 10/24/24 09:06 Dose: 81 mg Capsaicin (Capsaicin 0.025% Cream 60 Gm Tube) 1 appl TOPICAL QID PRN; Protocol PRN Reason: muscle aches Dextrose (Dextrose 50 % 25 Gm/50 Ml Syringe) 25 gm IVPUSH Q15M PRN; Protocol PRN Reason: per Hypoglycemia Standing Ord. Docusate Sodium (Docusate Sodium 100 Mg Capsule) 100 mg PO BEDTIME PRN PRN Reason: Constipation Fluoxetine HCl (Fluoxetine Hcl 20 Mg Capsule) 40 mg PO DAILY [facility] Last Admin: 10/24/24 09:06 Dose: 40 mg Glucose (Glucose Gel 15 Gm Gel..Gram.) 15 gm PO Q15M PRN; Protocol PRN Reason: per Hypoglycemia Standing Ord. Last Admin: 10/23/24 00:07 Dose: 15 gm Hydroxyzine HCl (Hydroxyzine Hcl 25 Mg Tablet) 25 mg PO Q6H PRN PRN Reason: mild anxiety Last Admin: 10/21/24 22:02 Dose: 25 mg Ibuprofen (Ibuprofen 800 Mg Tablet) 800 mg PO Q8H PRN PRN Reason: Pain, Mild (Pain Scale 1-3) Last Admin: 10/23/24 10:46 Dose: 800 mg Insulin Glargine (Insulin Glargine,Hum.Rec.Anlog 100 Unit/Ml 10 Ml Vial) 20 unit SUBCUT DAILY [facility] Last Admin: 10/24/24 09:05 Dose: 20 unit Insulin Human Lispro (Insulin Lispro 100 Unit/Ml 3 Ml Vial) 0 unit SUBCUT TIDAC [facility]; Protocol Last Admin: 10/24/24 09:04 Dose: 4 unit Levothyroxine Sodium (Levothyroxine Sodium 150 Mcg Tablet) 150 mcg PO DAILY@0600 [facility] Last Admin: 10/24/24 06:06 Dose: 150 mcg Lorazepam (Lorazepam 0.5 Mg Tablet) 0.5 mg PO DAILY PRN PRN Reason: Anxiety Last Admin: 10/22/24 12:54 Dose: 0.5 mg Magnesium Hydroxide (Milk Of Magnesia 30 Ml Oral.Susp) 30 ml PO DAILY PRN PRN Reason: Constipation Last Admin: 10/15/24 12:22 Dose: 30 ml Naloxone HCl (Naloxone Hcl 0.4 Mg/Ml Vial) 0.04 mg IVPUSH Q5M PRN PRN Reason: Excessive sedation or RR < 8 Nicotine Polacrilex (Nicotine Polacrilex 2 Mg Gum) 4 mg BUCCAL Q2H PRN PRN Reason: Nicotine Cravings Non-Formulary Medication (Evolocumab [Repatha Syringe]) 140 mg SUBCUT Q14D [facility] Olanzapine (Olanzapine 10 Mg Tablet) 10 mg PO BEDTIME [facility] Last Admin: 10/23/24 21:23 Dose: 10 mg Polyethylene Glycol (Polyethylene Glycol 3350 17 Gm Powd.Pack) 17 gm PO DAILY PRN PRN Reason: Constipation Simethicone (Simethicone 80 Mg Tab.Chew) 80 mg PO QIDWMHS PRN PRN Reason: flatulance Trazodone HCl (Trazodone Hcl 50 Mg Tablet) 50 mg PO BEDTIME MRX1 PRN PRN Reason: Insomnia Last Admin: 10/21/24 22:02 Dose: 50 mg Trazodone HCl (Trazodone Hcl 50 Mg Tablet) 50 mg PO BEDTIME [facility] Last Admin: 10/23/24 21:23 Dose: 50 mg Allergies Allergies Allergy/AdvReac Type Severity Reaction Status Date / Time Penicillins AdvReac Rash Verified 10/14/24 02:15 Sulfa (Sulfonamide AdvReac Rash Verified 10/14/24 02:15 Antibiotics) Assessment & Plan Assessment & Plan (1) Type 1 diabetes: Status: Acute Code(s): E10.9 - Type 1 diabetes mellitus without complications (2) MDD (major depressive disorder), recurrent, severe, with psychosis: Status: Acute Code(s): F33.3 - Major depressive disorder, recurrent, severe with psychotic symptoms Assessment and Plan: 10/24/24: Pt has requested [facility] [place]. Process initiated, discussed with Dr. Vasqeuz. No response from [facility] as yet. Continue ECT, Rx plan, and work on transfer if this is a possibility. (3) PTSD (post-traumatic stress disorder): Status: Acute Code(s): F43.10 - Post-traumatic stress disorder, unspecified Plan 49-year-old female with a past medical history of type 1 diabetes, major depressive disorder, Suicide attempts times two requiring hospitalizations last in 2023, MARTELL, Hypothyroidism, GERD, PTSD, CAD, status post AR in 2018 with 2 drug-eluting stents in LAD, ischemic cardiomyopathy history of gastric bypass surgery, iron deficiency anemia admitted to for treatment of MDD, MARTELL and PTSD. Patient is being seen for clearance for ECT treatment. MDD/GERD/SI Treatment per psychiatric team Blood sugar elevated after ECT treatment likely related to stress Type 1 diabetes Diagnosed at age 15. Previously wears a insulin pump with basal dosing. Recent A1c 7.2, followed closely by endocrinology as an outpatient Increase Lantus to 20U daily. Lispro sliding scale insulin Follow blood sugars, recommend diabetic snack at bedtime due to low blood sugars early a.m. Zyprexa can also cause hyperglycemia. Coronary artery disease/ischemic cardiomyopathy/status post AR 2018 with 2 MILKA Follows by Cardiology at [facility] Dr. Emilee English Continue aspirin and patient is on Repatha every 2 weeks Per historical documentation, patient is unable to tolerate beta-blockers. Recent lipid panel within normal limits EKG demonstrates normal sinus rhythm. Hypothyroidism Continue levothyroxine as ordered daily Thank you for allowing me to participate in the care of this patient. We will continue to follow as needed. Please reconsult of any acute concerns or issues arise Reason for continued inpatient stay Substantial Risk for: rapid decompensation and med/psych decompensation Time Spent With Patient Time: Total time managing care of this patient today ____ minutes.
[2024-10-24 11:43] LABS: Alanine Aminotransferase 22 U/L (0-31); Albumin Level 3.7 g/dL (3.5-5.0); Alkaline Phosphatase 59 U/L (39-117); Anion Gap 11 (12-20); Aspartate Amino Transferase 27 U/L (5-31); Blood Urea Nitrogen 20 mg/dL (9-16); Calcium 8.4 mg/dL (8.4-10.2); Carbon Dioxide 27 mmol/L (22-29); Chloride 102 mmol/L (96-108); Creatinine Clr Calc Pharmacy 52.1; Estimated Glomerular Filt Rate 56; Potassium 4.1 mmol/L (3.3-5.1); Sodium 136 mmol/L (135-145); Total Protein 6.1 g/dL (6.5-8.0)
[2024-10-24 11:58] LABS: Glucose, Whole Blood 402 mg/dL (60-115)
[2024-10-24 15:13] LABS: Glucose, Whole Blood 178 mg/dL (60-115)
[2024-10-24 17:13] LABS: Glucose, Whole Blood 202 mg/dL (60-115)
[2024-10-24 20:00] VITALS: BP 90/60; PULSE 83; RESP 16; TEMP 36.9; O2SAT 96
[2024-10-24 21:04] LABS: Glucose, Whole Blood 447 mg/dL (60-115)
[2024-10-24 22:48] LABS: Glucose, Whole Blood 346 mg/dL (60-115)
--- NOTE | 2024-10-24 23:41 | PC.NURSE ---
POC was 447 @ 1999, HS Insulin 3units given. banquet server on call provider and hospitalist informed. POC rechecked @ 2229 reads 345
[2024-10-25] MEDS: Glucose Gel 15 GM GEL..GRAM. PO (02:15)
[2024-10-25 02:16] LABS: Glucose, Whole Blood 24 mg/dL (60-115)
[2024-10-25 02:30] VITALS: BP 95/52; PULSE 67; RESP 14; TEMP 36.2; O2SAT 92
[2024-10-25 02:38] LABS: Glucose, Whole Blood 238 mg/dL (60-115)
--- NOTE | 2024-10-25 02:53 | PC.NURSE ---
At 0211, Pt POC was rechecked and read 24g/dm3. She was difficult to wake, cannot talk but responding to with facial expression to touch. [employer] call, glucose gel and orange juice given. IV plush DS was administered by [employer], blood sugar rechecks read 238. call manager provider, Dr Escalera and hospitalist, Dr Shelton was informed. Pt was resuscitated, and discharged to medical floor for further treatment.
--- NOTE | 2024-10-25 02:57 | PM.EVENT ---
Event Note Date of Service: 10/25/24 Event Note: rapid response called on pt as she was very lethargic, only respsonsive to loud verbal stimuli, progressed to only painful stimuli. pt received 6 units lispro at 18:18, 3 units of lispro at 21:31 with BS of 447 and an additional 8 units at 23:54 with BS of 345. pt's nurse went to check her BS and found her lethargic and difficult to arouse. rapid response was called. BS 37. pt had a similar episode last night with hypoglycemia, followed by hyperglycemia in the 600s without DKA after recieving an amp of glucose. they attempted juice and PO glucose however pt was not responsive enough to consume, therefore an IV was placed and she recieved IV dextrose 25g. pt to be transferred to the medical floor. pt's O2 sat was 91% during rapid response. will order chest xray once pt trasnferred to the floor. Time Spent With Patient Time: Total time managing care of this patient today ____ minutes.
[2024-10-25 05:55] LABS: Glucose, Whole Blood 121 mg/dL (60-115)
[2024-10-25 13:15] LABS: Glucose, Whole Blood 138 mg/dL (60-115)
[2024-10-26 09:16] LABS: Glucose, Whole Blood 240 mg/dL (60-115)
--- NOTE | 2024-11-14 10:32 | PM.PSYDC ---
DS: Providers Provider Date of Service: 10/25/24 Date of admission: 10/14/24 01:17 Date of discharge: 10/25/24 Primary care physician: Unknown Physician Admitting clinician: Cony Bartlett Attending physician on admission: Wilfredo Vasquez Consults: 10/14/24 02:16 Consult to Hospitalist Routine Comment: [place]ing [place] [facility] Reason For Exam: new admit h&P 10/17/24 16:26 Consult to Hospitalist Routine Comment: Consulting Provider: [facility] Reason For Exam: nail injury R ring finger with ?infection 10/17/24 16:31 Consult to Psychiatry Routine Consulting Provider: [facility] [facility] Reason for consultation: ECT- pt has a hx of efficacy and requests another course Has provider been notified: No 10/19/24 09:58 Consult to Hospitalist Routine Comment: Consulting Provider: [facility] Reason For Exam: MED EVAL TODAY FOR ECT RISK STRATIFICATION 10/23/24 10:40 Consult to Hospitalist Routine Comment: Consulting Provider: [facility] Reason For Exam: POC 595 post ect, following protocol currently Attending physician on discharge: Wilfredo Vasquez Discharging clinician: Kay Mejia DS: Diagnosis Discharge Diagnosis (1) Type 1 diabetes: Status: Acute (2) MDD (major depressive disorder), recurrent, severe, with psychosis: Status: Acute (3) PTSD (post-traumatic stress disorder): Status: Acute DS: Medications Discharge Medications Home Medications: Home Medications ?Medication ?Instructions ?Recorded ?Confirmed evolocumab 140 mg/mL subcutaneous 140 mg subcut Q2W 10/14/24 10/25/24 syringe (Repatha Syringe) fluoxetine 40 mg capsule 40 mg PO DAILY 10/14/24 10/25/24 levothyroxine 150 mcg tablet 150 mcg PO DAILY@0600 10/14/24 10/25/24 lorazepam 0.5 mg tablet 0.5 mg PO DAILY PRN anxiety 10/14/24 10/25/24 trazodone 50 mg tablet 50 mg PO BEDTIME insomnia 10/14/24 10/25/24 aluminum-mag hydroxide-simethicone 30 ml PO Q6H PRN Heartburn 10/25/24 10/25/24 200 mg-200 mg-20 mg/5 mL oral susp aspirin 81 mg tablet 81 mg PO DAILY 10/25/24 10/25/24 hydroxyzine HCl 25 mg tablet 25 mg PO Q6H PRN Anxiety 10/25/24 10/25/24 ibuprofen 800 mg tablet 800 mg PO Q8H PRN Pain, Mild 10/25/24 10/25/24 Previous Rx's ?Medication ?Instructions ?Recorded insulin glargine 100 unit/mL 18 unit (0.18 mL) subcut DAILY #0 10/25/24 subcutaneous solution (Lantus mL U-100 Insulin) insulin lispro 100 unit/mL 3 unit (0.03 mL) subcut BEDTIME #0 10/25/24 subcutaneous solution (Admelog mL U-100 Insulin lispro) insulin lispro 100 unit/mL 6 unit (0.06 mL) subcut TIDAC #0 mL 10/25/24 subcutaneous solution (Admelog U-100 Insulin lispro) insulin lispro 100 unit/mL See Protocol subcut QIDACHS #0 mL 10/25/24 subcutaneous solution (Admelog U-100 Insulin lispro) olanzapine 10 mg tablet 10 mg PO BEDTIME #0 tabs 10/25/24 simethicone 80 mg chewable tablet 80 mg PO QIDWMHS PRN flatulance #0 10/25/24 tabs trazodone 50 mg tablet 50 mg PO BEDTIME MRX1 PRN Insomnia 10/25/24 #0 tabs Mental Status Exam Mental Status Exam Narrative: Transfer occurred during the evening when tw had not seen pt. Data Data Completed and Pending Completed studies during hospitalization [Text1]: 10/17/24 17:15 Urine clean catch - Clean Catch Midstream Urine Culture - Final DS: Summary Hospital Course Hospital Course: Pt was transferred from adult psychiatry to medicine to stabilize diabetes and labile blood sugar values. Status at Discharge Functional status at discharge: bed bound Overall status at discharge: patient is not back to baseline Time Spent with Patient Time attestation: Total time managing care of this patient today ____ minutes. Time spent: Less than 30 minutes Discharge Plan Discharge Anticipated Discharge Date/Time: 10/25/24 02:43 Patient Disposition: er Acute [facility] Discharge Diagnosis: MDD Referrals: Jeremias Lawrence MD [Other] - 11/07/24 9:00 am Referral Note: *Outpatient follow-up appointment (virtual/Telehealth) Litzy See [Other] - 1 Week Referral Note: *Follow-up therapy appointment Discharge Medications: New insulin glargine [Lantus U-100 Insulin] 100 unit/mL Solution 18 unit subcut DAILY Qty: 0 0RF trazodone 50 mg Tablet 50 mg PO BEDTIME MRX1 PRN (Reason: Insomnia) Qty: 0 0RF olanzapine 10 mg Tablet 10 mg PO BEDTIME Qty: 0 0RF insulin lispro [Admelog U-100 Insulin lispro] 100 unit/mL Solution See Protocol subcut QIDACHS Qty: 0 0RF Protocol: Insulin Correction Scale Less than or equal to 110 ---- Give (units): 0 111 to 150 Give (units): 0 151 to 200 Give (units): 2 201 to 250 Give (units): 4 251 to 300 Give (units): 6 301 to 350 Give (units): 8 Greater than 350 Give (units): 10 Call MD if Blood Glucose > : 350 insulin lispro [Admelog U-100 Insulin lispro] 100 unit/mL Solution 6 unit subcut TIDAC Qty: 0 0RF insulin lispro [Admelog U-100 Insulin lispro] 100 unit/mL Solution 3 unit subcut BEDTIME Qty: 0 0RF simethicone 80 mg Tablet,Chewable 80 mg PO QIDWMHS PRN (Reason: flatulance) Qty: 0 0RF Continued fluoxetine 40 mg capsule 40 mg PO DAILY trazodone 50 mg tablet 50 mg PO BEDTIME lorazepam 0.5 mg tablet 0.5 mg PO DAILY PRN (Reason: anxiety) levothyroxine 150 mcg tablet 150 mcg PO DAILY@0600 Repatha Syringe 140 mg/mL syringe 140 mg subcut Q2W No Action ibuprofen 800 mg Tablet 800 mg PO Q8H PRN (Reason: Pain, Mild) hydroxyzine HCl 25 mg Tablet 25 mg PO Q6H PRN (Reason: Anxiety) aspirin 81 mg Tablet 81 mg PO DAILY alum-mag hydroxide-simeth 200-200-20 mg/5 mL Suspension 30 ml PO Q6H PRN (Reason: Heartburn) Rx Instructions: administer between meals and at bedtime Discharge Orders: Discharge Order (Routine); Ordered 10/25/24 Ordered By: Dajuan Escalera Diet: Diabetic diet Activity on Discharge: As tolerated Stand Alone Forms: Patient Portal Discharge page Print Language: Ukrainian Care Plan Goals: transfer to medical floor Health Concerns: transfer to medical floor Plan of Treatment: transfer to medical floor Assessment: transfer to medical floor Discharge Date/Time: 10/25/24 02:45
== END 2024-10-25 02:45 | disposition short-term general hospital (02) | DRG 885 ==
PROVIDERS: Hospitalist; Internal Medicine; Nurse Practitioner Family; Physician Assistant; Psychiatry & Neurology Psychiatry; Admitting Provider Registered Nurse; Visit Provider Clinical Nurse Specialist Psychiatric/Mental Health, Adult
PROC: GZB4ZZZ Other Electroconvulsive Therapy (ICD-10-PCS; CPT 90870; principal; 2024-10-23 07:30)
PROC: (CPT 90870; principal; 2024-12-08 07:00)
DX: F33.3 Major depressive disorder, recurrent, severe with psychotic symptoms (principal); R45.851 Suicidal ideations; I25.10 Atherosclerotic heart disease of native coronary artery without angina pectoris; F43.10 Post-traumatic stress disorder, unspecified; I25.5 Ischemic cardiomyopathy; E03.9 Hypothyroidism, unspecified; E10.649 Type 1 diabetes mellitus with hypoglycemia without coma; E10.65 Type 1 diabetes mellitus with hyperglycemia; Z87.891 Personal history of nicotine dependence; Z95.5 Presence of coronary angioplasty implant and graft; Z91.51 Personal history of suicidal behavior; Z79.4 Long term (current) use of insulin; Z79.890 Hormone replacement therapy; Z79.899 Other long term (current) drug therapy
CPT/HCPCS: 36415; 80048; 80053; 80061; 81003; 81515; 82010; 82803; 82947; 83036; 85025; 87086; 90870; 93005; J0330; J2405; J2704

== ENCOUNTER 2024-10-14 01:17 | Outpatient (BNV) | payer OTHER, SELFPAY | END 2024-10-19 10:03 | PROVIDERS: Admitting Provider Registered Nurse; Visit Provider Internal Medicine Cardiovascular Disease | DX: R94.31 Abnormal electrocardiogram [ECG] [EKG] (principal); Z01.818 Encounter for other preprocedural examination | CPT/HCPCS: 93010 ==

== ENCOUNTER → 2024-10-14 01:17 | Outpatient (BNV) | payer OTHER, SELFPAY | PROVIDERS: Admitting Provider Registered Nurse; Visit Provider Psychiatry & Neurology Psychiatry | DX: F33.2 Major depressive disorder, recurrent severe without psychotic features (principal) | CPT/HCPCS: 90870; 99499 ==

== ENCOUNTER → 2024-10-14 01:17 | Outpatient (BNV) | payer OTHER, SELFPAY | PROVIDERS: Admitting Provider Registered Nurse; Visit Provider Nurse Practitioner Acute Care | DX: E10.9 Type 1 diabetes mellitus without complications (principal) | CPT/HCPCS: 99221; 99222; 99232; 99499 ==

== ENCOUNTER → 2024-10-14 01:17 | Outpatient (BNV) | payer OTHER, SELFPAY | PROVIDERS: Admitting Provider Registered Nurse; Visit Provider Registered Nurse | DX: F33.3 Major depressive disorder, recurrent, severe with psychotic symptoms (principal); F43.11 Post-traumatic stress disorder, acute; E10.9 Type 1 diabetes mellitus without complications | CPT/HCPCS: 90792; 99231; 99232 ==

== ENCOUNTER 2024-10-25 03:17 | Outpatient (BNV) | payer OTHER, SELFPAY | END 2024-10-25 04:08 | PROVIDERS: Admitting Provider Psychiatry & Neurology Psychiatry; Visit Provider Radiology Diagnostic Radiology | DX: R09.02 Hypoxemia (principal) | CPT/HCPCS: 71045 ==

== ENCOUNTER 2024-10-25 03:17 | Inpatient (IN) | payer OTHER, SELFPAY ==
--- NOTE | ~2024-10-25 | XR_ITS ---
CLINICAL HISTORY: hypoxia 1 view chest x-ray Comparison: None provided Findings: The lungs are clear. Heart size is normal. No acute fracture. IMPRESSION: 1. No acute findings. This document has been electronically signed by: Waylon Méndez MD on 10/25/2024 04:48:43
--- NOTE | 2024-10-25 03:27 | PM.IMHP ---
History of Present Illness Date of Service: 10/25/24 Attending physician on admission: Kasi Shelton Chief Complaint: Hypoglycemia pt is a 49-year-old female with a past medical history of type 1 diabetes, major depressive disorder, Suicide attempts times two requiring hospitalizations last in 2023, MARTELL, Hypothyroidism, GERD, PTSD, CAD, status post SC in 2018 with 2 drug-eluting stents in LAD, ischemic cardiomyopathy history of gastric bypass surgery, iron deficiency anemia admitted to for treatment of MDD, and PTSD, transferred from adult Psychiatry due to episode of severe hypoglycemia. rapid response called on pt as she was very lethargic, only respsonsive to loud verbal stimuli, progressed to only painful stimuli. pt received 6 units lispro at 18:18, 3 units of lispro at 21:31 with BS of 447 and an additional 8 units at 23:54 with BS of 345. pt's nurse went to check her BS and found her lethargic and difficult to arouse. rapid response was called. BS 37. pt had a similar episode last night with hypoglycemia, followed by hyperglycemia in the 600s without DKA after recieving an amp of glucose. they attempted juice and PO glucose however pt was not responsive enough to consume, therefore an IV was placed and she recieved IV dextrose 25g. pt to be transferred to the medical floor. pt's O2 sat was 91% during rapid response. will order chest xray once pt trasnferred to the floor. Review of Systems Constitutional: Constitutional: Denies body ache(s), Denies chills, Denies fatigue, Denies fever(s) and Denies headache(s) Eyes: Eyes: Denies change in vision ENT: Denies headache(s), Denies nasal congestion and Denies sore throat Cardiovascular: Cardiovascular: Denies chest pain, Denies rapid heart rate, Denies leg edema, Denies lightheadedness and Denies dyspnea Respiratory: Respiratory: Denies chest congestion, Denies cough, Denies dyspnea and Denies wheezing Gastrointestinal: Gastrointestinal: Denies abdominal pain, Denies nausea and Denies vomiting Genitourinary: Genitourinary: Denies difficulty voiding, Denies dysuria and Denies urinary urgency Musculoskeletal: Musculoskeletal: Denies myalgias Integumentary/Breasts: Skin/Breast: Denies rash Neurologic: Denies confusion and Denies headache(s) Psychiatric: Psychiatric: Denies confusion Endocrine: Endocrine: Denies fatigue Hematologic/Lymphatic: Hematologic/Lymphatic: Denies easy bleeding and Denies easy bruising Allergic/Immunologic: Allergic/Immunologic: Denies wheezing [facility] Medical History Suicidal ideation Anxiety Depression MDD (major depressive disorder), recurrent, severe, with psychosis PTSD (post-traumatic stress disorder) Type 1 diabetes History of myocardial infarction Functional capacity: independent ambulation Social History Household Members: Unknown / Unable to assess Housing: Unknown / Unable to assess Do you presently have visiting nurse or other home services: No Patient Tobacco Use Status: Former Tobacco user Tobacco use type: Cigarette Second Hand Smoke Exposure: Yes Currently Displaying Signs/Symptoms of Drug Intoxication Withdrawal: No Advance Directives: No Advance Directives Information Provided: No Do you have a plan to hurt others: No Plan Recently lost weight without trying: No How much weight loss: Not applicable Eating poorly because of decreased appetite: No Nutrition screen score: 0 Nutrition Risks: No Nutritional Risk Patient : No : No Poor oral hygiene: No service: No Sexual orientation: Straight/Heterosexual Meds Allergies Allergy/AdvReac Type Severity Reaction Status Date / Time Penicillins AdvReac Rash Verified 10/14/24 02:15 Sulfa (Sulfonamide AdvReac Rash Verified 10/14/24 02:15 Antibiotics) Active Medications: Current Medications Acetaminophen (Acetaminophen 325 Mg Tablet) 975 mg PO Q6H PRN PRN Reason: Pain, Mild 1-3,fever,headache Aspirin (Aspirin 81 Mg Tab.Chew) 81 mg PO DAILY [facility] Calcium Carbonate (Calcium Carbonate 750 Mg Tab.Chew) 750 mg PO Q4H PRN PRN Reason: Heartburn Capsaicin (Capsaicin 0.025% Cream 60 Gm Tube) 1 appl TOPICAL QID PRN; Protocol PRN Reason: muscle aches Dextrose (Dextrose 50 % 25 Gm/50 Ml Syringe) 25 gm IVPUSH Q15M PRN; Protocol PRN Reason: per Hypoglycemia Standing Ord. Enoxaparin Sodium (Enoxaparin Sodium 40 Mg/0.4 Ml Syringe) 40 mg SUBCUT Q24H [facility] Fluoxetine HCl (Fluoxetine Hcl 20 Mg Capsule) 40 mg PO DAILY [facility] Glucose (Glucose Gel 15 Gm Gel..Gram.) 15 gm PO Q15M PRN; Protocol PRN Reason: per Hypoglycemia Standing Ord. Hydroxyzine HCl (Hydroxyzine Hcl 25 Mg Tablet) 25 mg PO Q6H PRN PRN Reason: mild anxiety Ibuprofen (Ibuprofen 800 Mg Tablet) 800 mg PO Q8H PRN PRN Reason: Pain, Mild (Pain Scale 1-3) Insulin Glargine (Insulin Glargine,Hum.Rec.Anlog 100 Unit/Ml 10 Ml Vial) 15 unit SUBCUT DAILY [facility] Insulin Human Lispro (Insulin Lispro 100 Unit/Ml 3 Ml Vial) 0 unit SUBCUT QIDACHS [facility]; Protocol Levothyroxine Sodium (Levothyroxine Sodium 150 Mcg Tablet) 150 mcg PO DAILY@0600 [facility] Lorazepam (Lorazepam 0.5 Mg Tablet) 0.5 mg PO DAILY PRN PRN Reason: Anxiety Magnesium Hydroxide (Milk Of Magnesia 30 Ml Oral.Susp) 30 ml PO DAILY PRN PRN Reason: Constipation Melatonin (Melatonin 3 Mg Tablet) 6 mg PO BEDTIME PRN PRN Reason: Insomnia Nicotine Polacrilex (Nicotine Polacrilex 2 Mg Gum) 4 mg BUCCAL Q2H PRN PRN Reason: Nicotine Cravings Olanzapine (Olanzapine 10 Mg Tablet) 10 mg PO BEDTIME [facility] Ondansetron HCl (Ondansetron Hcl 4 Mg/2 Ml Vial) 4 mg IVPUSH Q8H PRN PRN Reason: Nausea and Vomiting Simethicone (Simethicone 80 Mg Tab.Chew) 80 mg PO QIDWMHS PRN PRN Reason: flatulence Sodium Chloride (0.9 % Sodium Chloride Flush 3 Ml Syringe) 3 ml IVFLUSH QSHIFT [facility] Trazodone HCl (Trazodone Hcl 50 Mg Tablet) 50 mg PO BEDTIME MRX1 PRN PRN Reason: Insomnia Trazodone HCl (Trazodone Hcl 50 Mg Tablet) 50 mg PO BEDTIME [facility] Home Medications ?Medication ?Instructions ?Recorded ?Confirmed ?Last Taken ?Type evolocumab 140 mg/mL subcutaneous 140 mg subcut Q2W 10/14/24 10/25/24 Unknown History syringe (Repatha Syringe) fluoxetine 40 mg capsule 40 mg PO DAILY 10/14/24 10/25/24 10/24/24 History levothyroxine 150 mcg tablet 150 mcg PO DAILY@0600 08/10/25/24 10/24/24 History lorazepam 0.5 mg tablet 0.5 mg PO DAILY PRN anxiety 10/14/24 10/25/24 10/24/24 History trazodone 50 mg tablet 50 mg PO BEDTIME insomnia 10/14/24 10/25/24 10/24/24 History aluminum-mag hydroxide-simethicone 30 ml PO Q6H PRN Heartburn 10/25/24 10/25/24 10/24/24 History 200 mg-200 mg-20 mg/5 mL oral susp aspirin 81 mg tablet 81 mg PO DAILY 10/25/24 10/25/24 10/24/24 History hydroxyzine HCl 25 mg tablet 25 mg PO Q6H PRN Anxiety 10/25/24 10/25/24 10/21/24 History ibuprofen 800 mg tablet 800 mg PO Q8H PRN Pain, Mild 10/25/24 10/25/24 10/23/24 History Physical Exam Vital Signs and Narrative: Vital Signs: General: AOx3, no acute distress Resp: CTA bilaterally CVS: S1, S2, RRR GI: +BS, NT, no distention Skin: Warm, dry Neuro: Cranial nerves II-XII grossly intact bilaterally. Motor grossly intact bilaterally Extremities: No LE edema Psych: Appropriate affect Const: General: No confusion Orientation/consciousness: No confusion Neuro: General: No confusion Results Labs 10/25/24 06:47 10/25/24 06:47 Assessment and Plan (1) Hypoglycemia: Status: Acute Plan pt is a 49-year-old female with a past medical history of type 1 diabetes, major depressive disorder, Suicide attempts times two requiring hospitalizations last in 2023, MARTELL, Hypothyroidism, GERD, PTSD, CAD, status post SC in 2018 with 2 drug-eluting stents in LAD, ischemic cardiomyopathy history of gastric bypass surgery, iron deficiency anemia admitted to for treatment of MDD, and PTSD, transferred from adult Psychiatry due to episode of severe hypoglycemia. hypoglycemia - pt received too much insulin, 11U tltal from 21:31 to 23:54 with subsequent lethargy - unable to take PO glucose - IV placed on psych floor and pt given 1amp of dextrose with response - transfer to [facility] tele - monitor POC Q1H - glucose/dextrose PRN hypoxia - pt O2sat during rapid response was 91 - check CXR - O2 sat improved now T1DM - decrease lantus from 18U daily to 15U - eliminate insulin prior to meals - sliding scale insulin - diabetic diet - hold wegovy mood - psych consult - continue psych meds: Hydroxyzine, lorazepam, trazodone, fluoxetine Hypothyroid - continue levothyroxine CAD/s/p SC with 2 drug-eluting stents - continue aspirin - follows with Cardiology at [facility] Full code VTE prophylaxis: Lovenox Patient with significant hypoglycemic episode, requiring admission to medical floor for monitoring. Quality Stroke Does the patient have a stroke diagnosis?: No VTE Prior VTE?: No VTE Risk Level:: Medical - moderate - high VTE Device Contraindication: Treatment Not Indicated VTE Drug Contraindication: N/A - Med Ordered
[2024-10-25] MEDS: Lactated Ringers 1,000 ML 100 ML IVCONT ×2 (03:30→14:44)
--- OUTSIDE RECORDS SUMMARY | 2024-10-25 03:52 | XMS_ITS | Encounter Summary ---
Author Organization [facility] Address [address] [place] [address] Phone Care Team Providers Care Partition Assembler Name Role Phone Manda Dorantes MD, MPH Primary Care Provider [phone] Manda Dorantes MD, MPH Unavailable [phone] Raoul Nogueira MD Unavailable [phone] Raoul Nogueira MD Unavailable [phone] Encounter Details Date Type Department Care Team (Late st Contact Info) Description 01/30/2021 Procedure Pass [facility] Breast Evaluation Center [address] [place] [address] Social History Tobacco Use Types Packs/Day Years [...] high school, GED, job training, learning the Italian language, technical skills, or developing parenting skills)? [...] Care Team (Late st Contact Info) Description 11/07/2024 9:00 AM EDT Telemedicine [address], [address] [place] [address] Jeremias Lawrence MD [address] [place] [address] [address] [place] [address] [email or web address] 12/13/2024 8:30 AM EDT Telemedicine [facility] Weight Center [address] [place] [address] Sammy Groves MD [address] 4th [address] [place] [address] [email or web address] 12/22/2024 8:00 AM EST Appointment [facility] Nuclear Medicine [address] [place] [id number] Tanvi English MD, DrPH [address] [place] [address] [email or web address] 01/08/2025 12:35 PM EST Office Visit [facility] Diabetes Center [address] [facility] [address] [place] [address] Timbo Calle MD [address] [place] [id number] [email or web address] documented as of this encounter [...] documented as of this encounter Care Teams Partition Assembler Relationship Specialty Start Date End Date Manda Dorantes MD, MPH [address] [place] [address] [email or web address] PCP - General Internal Medicine 01/01/17 Manda Dorantes MD, MPH [address] [place] [email or web address] Attributed Provider 03/13/17 06/24/23 Raoul Nogueira MD [address] [place] [id number] [email or web address] Insurance Assigned Provider 01/31/21 04/25/22 Raoul Nogueira MD [address] [place] [id number] [email or web address] Insurance Assigned Provider 05/23/22 06/20/22 documented as of this encounter Additional Source Comments The information contained in this document represents components of the legal health record. It is not the complete legal health record.[facility]
--- OUTSIDE RECORDS SUMMARY | 2024-10-25 03:52 | XMS_ITS | Encounter Summary ---
Author Organization [facility] Address [address] [place] [address] Phone Care Team Providers Care Diploma Maker Name Role Phone Manda Dorantes MD, MPH Primary Care Provider [phone] Manda Dorantes MD, MPH Unavailable [phone] Raoul Nogueira MD Unavailable [phone] Raoul Nogueira MD Unavailable [phone] Encounter Details Date Type Department Care Team (Late st Contact Info) Description 02/01/2021 Procedure Pass [facility] 15 [facility] [address] [place] [address] Social History Tobacco Use Types Packs/Day Years [...] high school, GED, job training, learning the German language, technical skills, or developing parenting skills)? [...] Info) Description 11/07/2024 9:00 AM EDT Telemedicine [address], [address] [place] [address] Jeremias Lawrence MD [address] [place] [address] 8 [place] [address] [email or web address] 12/13/2024 8:30 AM EDT Telemedicine [facility] Weight Center 50 [facility] [address] [place] [address] Sammy Groves MD 50 [facility], 4th Floor [address] [place] [address] [email or web address] 12/22/2024 8:00 AM EST Appointment [facility] Nuclear Medicine [address] [place] [address] Tanvi English MD, DrPH 55 [facility] [address] [place] [address] [email or web address] 01/08/2025 12:35 PM EST Office Visit [facility] Diabetes Center 50 [facility] 340 [place] [address] Timbo Calle MD [address] [place] [address] [email or web address] documented as of this encounter Visit Diagnoses [...] documented as of this encounter Care Teams Diploma Maker Relationship Specialty Start Date End Date Manda Dorantes MD, MPH 15 [place] [address] [email or web address] PCP - General Internal Medicine 01/01/17 Manda Dorantes MD, MPH [address] [place] [address] [email or web address] Partners Attributed Provider 03/13/17 06/24/23 Raoul Nogueira MD [address] [place] [address] [email or web address] Insurance Assigned Provider 01/31/21 04/25/22 Raoul Nogueira MD [address] [place] [address] [email or web address] Insurance Assigned Provider 05/23/22 06/20/22 documented as of this encounter Additional Source Comments The information contained in this document represents components of the legal health record. It is not the complete legal health record.[facility]
--- OUTSIDE RECORDS SUMMARY | 2024-10-25 03:52 | XMS_ITS | Encounter Summary ---
Author Organization [facility] Address [address] [facility] [address] [place] [address] Phone Care Team Providers Care Plodding Operator Name Role Phone Manda Dorantes MD, MPH Primary Care Provider [phone] Manda Dorantes MD, MPH Unavailable Encounter Details Date Type Department Care Team (Late st Contact Info) Description 04/26/2023 Procedure Pass [facility] Breast Imaging, [address] [address] Social History Tobacco Use Types Packs/Day Years [...] Info) Description 11/07/2024 9:00 AM EDT Telemedicine [address], [address] [place] [address] Jeremias Lawrence MD [address] [address] [email or web address] 12/13/2024 8:30 AM EDT Telemedicine [facility] Weight Center 50 [facility] [address] [place] [address] Sammy Groves MD 50 [facility], 4th Floor [address] [place] [address] [email or web address] 12/22/2024 8:00 AM EST Appointment [facility] Nuclear Medicine 55 [place] [address] Tanvi English MD, DrPH 55 [facility] [address] [place] [address] [email or web address] 01/08/2025 12:35 PM EST Office Visit [facility] Diabetes Center [address] [place] [address] Timbo Calle MD [address] [place] [address] [email or web address] documented as of this encounter Visit Diagnoses Not on filedocumented in this encounter Additional Health Concerns Assessment Noted Time PHQ-9 Depression Total Score: 0 08/27/19 23 7:30 AM EDT PHQ-2 Depression Total Score: 0 08/31/19 24 10:24 AM EDT documented as of this encounter Care Teams Plodding Operator Relationship Specialty Start Date End Date Manda Dorantes MD, MPH 15 [place] [address] [email or web address] PCP - General Internal Medicine 01/01/17 Manda Dorantes MD, MPH [address] [place] [address] [email or web address] Partners Attributed Provider 03/13/17 06/24/23 documented as of this encounter Additional Source Comments The information contained in this document represents components of the legal health record. It is not the complete legal health record.[facility]
--- OUTSIDE RECORDS SUMMARY | 2024-10-25 03:52 | XMS_ITS | Clinical Summary ---
Author Organization [facility] Address [address] [facility] [address] [facility] [address] [place] [address] Care Team Providers Care Management Engineer Name Role Phone Manda Dorantes MD Primary Care Provider [phone] Social History Tobacco Use Types Packs/Day Years Used Date Smoking Tobacco: Never Assessed Comments Unknown Sex and Gender Information Value Date Recorded Sex Assigned at Not on file Legal Sex Female 11:05 PM EST Gender Identity Not on file Sexual Orientation Not on file Plan of Treatment Not on file Care Teams Management Engineer Relationship Specialty Start Date End Date Manda Dorantes MD 15 [place] [address] PCP - General 03/21/21
--- OUTSIDE RECORDS SUMMARY | 2024-10-25 03:52 | XMS_ITS | Encounter Summary ---
Author Organization [facility] Address [address] [place] [address] Phone Care Team Providers Care Pedicab Driver Name Role Phone Manda Dorantes MD, MPH Primary Care Provider [phone] Manda Dorantes MD, MPH Unavailable [phone] Raoul Nogueira MD Unavailable [phone] Raoul Nogueira MD Unavailable [phone] Reason for Visit * Reason Comments Medication Refill Encounter Details Date Type Department Care Team (Late st Contact Info) Description 06/29/[address], [address] [place] [address] Amie Garcia, [address] [address] [email or web address] Medication Refill Social History Tobacco Use Types [...] high school, GED, job training, learning the [place] language, technical skills, or developing parenting skills)? [...] Info) Description 11/07/2024 9:00 AM EDT Telemedicine [address], [address] [place] [address] Jeremias Lawrence MD [address] [place] [address] [email or web address] 12/13/2024 8:30 AM EDT Telemedicine [facility] 50 [facility] [address] [place] [address] Sammy Groves MD 50 [facility], 4th Floor [address] [place] [address] [email or web address] 12/22/2024 8:00 AM EST Appointment [facility] Nuclear Medicine [address] [place] [address] Tanvi English MD, DrPH [address] [place] [address] [email or web address] 01/08/2025 12:35 PM EST Office Visit [facility] Diabetes [facility] 50 [facility] 340 [place] [address] Timbo Calle MD 55 [facility] [address] [place] [address] [email or web address] documented as of this encounter Visit Diagnoses Not on filedocumented in this encounter Additional Health Concerns Infection Onset Date Last Indicated Resolved Time CoV-Presumed 08/18/2021 08/18/2021 09/08/2021 1:21 AM EDT Assessment Noted Time PHQ-2 Depression Total Score: 2 04/17/19 18 8:39 AM EST documented as of this encounter Care Teams Pedicab Driver Relationship Specialty Start Date End Date Manda Dorantes MD, MPH [address] [place] [address] [email or web address] PCP - General Internal Medicine 01/01/17 Manda Dorantes MD, MPH [address] [place] [address] [email or web address] Partners Attributed Provider 03/13/17 06/24/23 Raoul Nogueira MD [address] [place] [address] [email or web address] Insurance Assigned Provider 01/31/21 04/25/22 Raoul Nogueira MD [address] [place] [address] [email or web address] Insurance Assigned Provider 05/23/22 06/20/22 documented as of this encounter Additional Source Comments The information contained in this document represents components of the legal health record. It is not the complete legal health record.[facility]
--- OUTSIDE RECORDS SUMMARY | 2024-10-25 03:52 | XMS_ITS | Encounter Summary ---
Author Organization [facility] Address [address] [place] [address] Phone Care Team Providers Care Conductor Yard Name Role Phone Manda Dorantes MD, MPH Primary Care Provider [phone] Manda Dorantes MD, MPH Unavailable [phone] Reason for Visit * Reason Comments Medication Refill Encounter Details Date Type Department Care Team (Late st Contact Info) Description 09/01/2022 Refill [facility] 15 [facility], [address] [place] [address] Trevon Sierra MD 55 [facility] [address] [place] [address] [email or web address] Medication Refill Social History Tobacco Use Types [...] Info) Description 11/07/2024 9:00 AM EDT Telemedicine [address], [address] [place] [address] Jeremias Lawrence MD [address] [place] [address] [email or web address] 12/13/2024 8:30 AM EDT Telemedicine [facility] Weight Center 50 [facility] [address] [place] [address] Sammy Groves MD 50 [facility], 4th Floor [address] [place] [address] [email or web address] 12/22/2024 8:00 AM EST Appointment [facility] Nuclear Medicine [address] [place] [address] Tanvi English MD, DrPH [address] [place] [address] [email or web address] 01/08/2025 12:35 PM EST Office Visit [facility] Diabetes Center [address] [place] [address] Timbo Calle MD 55 [facility] [address] [place] [address] [email or web address] documented as of this encounter Visit Diagnoses Diagnosis Generalized anxiety disorder documented in this encounter Additional Health Concerns Assessment Noted Time PHQ-9 Depression Total Score: 0 08/27/19 23 7:30 AM EDT PHQ-2 Depression Total Score: 0 08/27/19 23 7:30 AM EDT documented as of this encounter Care Teams Conductor Yard Relationship Specialty Start Date End Date Manda Dorantes MD, MPH [address] [place] [address] [email or web address] PCP - General Internal Medicine 01/01/17 Manda Dorantes MD, MPH [address] [place] [phone] [email or web address] Partners Attributed Provider 03/13/17 06/24/23 documented as of this encounter Additional Source Comments The information contained in this document represents components of the legal health record. It is not the complete legal health record.[facility]
--- OUTSIDE RECORDS SUMMARY | 2024-10-25 03:52 | XMS_ITS | Encounter Summary ---
Author Organization [facility] Address [address] [place] [address] Phone Care Team Providers Care Lug Loader Name Role Phone Manda Dorantes MD, MPH Primary Care Provider [phone] Manda Dorantes MD, MPH Unavailable [phone] Encounter Details Date Type Department Care Team (Late st Contact Info) Description 02/12/2023 Telephone [facility] 15 [facility], [address] [place] [address] Cory Babin MD [facility] 6th [place] [address] [email or web address] Social History Tobacco Use Types Packs/Day Years [...] Info) Description 11/07/2024 9:00 AM EDT Telemedicine [address], [address] [place] [address] Jeremias Lawrence MD [address] [place] [address] [email or web address] 12/13/2024 8:30 AM EDT Telemedicine [facility] Weight Center [address] [facility] [address] [place] [address] Sammy Groves MD 50 [facility], 4th Floor [address] [place] [address] [email or web address] 12/22/2024 8:00 AM EST Appointment [facility] Nuclear Medicine [address] [place] [address] Tanvi English MD, DrPH [address] [place] [address] [email or web address] 01/08/2025 12:35 PM EST Office Visit [facility] Diabetes Center [address] [place] [address] Timbo Calle MD [address] [facility] [address] [place] [address] [email or web address] documented as of this encounter Visit Diagnoses Not on filedocumented in this encounter Additional Health Concerns Assessment Noted Time PHQ-9 Depression Total Score: 0 08/27/19 23 7:30 AM EDT PHQ-2 Depression Total Score: 0 08/27/19 23 7:30 AM EDT documented as of this encounter Care Teams Lug Loader Relationship Specialty Start Date End Date Manda Dorantes MD, MPH [address] [place] [address] [email or web address] PCP - General Internal Medicine 01/01/17 Manda Dorantes MD, MPH [address] [place] [address] [email or web address] Partners Attributed Provider 03/13/17 06/24/23 documented as of this encounter Additional Source Comments The information contained in this document represents components of the legal health record. It is not the complete legal health record.[facility]
--- OUTSIDE RECORDS SUMMARY | 2024-10-25 03:52 | XMS_ITS | Encounter Summary ---
Author Organization [facility] Address [address] [place] [address] Phone Care Team Providers Care Fixed Wing Pilot Name Role Phone Manda Dorantes MD, MPH Primary Care Provider [phone] Manda Dorantes MD, MPH Unavailable [phone] Raoul Nogueira MD Unavailable [phone] Raoul Nogueira MD Unavailable [phone] Encounter Details Date Type Department Care Team (Late st Contact Info) Description 02/10/2021 Ancillary Orders [facility] 15 [facility], [address] [place] [address] Manda Dorantes MD, MPH [address] [place] [address] [email or web address] Social History Tobacco Use Types Packs/Day Years [...] high school, GED, job training, learning the [place] language, technical skills, or developing parenting skills)? [...] Info) Description 11/07/2024 9:00 AM EDT Telemedicine [address], [address] [place] [address] Jeremias Lawrence MD [address] [place] [address] [email or web address] 12/13/2024 8:30 AM EDT Telemedicine [facility] [address] [place] [address] Sammy Groves MD 50 [facility], 4th Floor [address] [place] [address] [email or web address] 12/22/2024 8:00 AM EST Appointment [facility] Nuclear Medicine [address] [place] [address] Tanvi English MD, DrPH 55 [facility] [address] [place] [address] [email or web address] 01/08/2025 12:35 PM EST Office Visit [facility] 50 [facility] 340 [place] [address] Timbo Calle MD 55 [facility] [address] [place] [address] [email or web address] documented as of this encounter Visit [...] documented as of this encounter Care Teams Fixed Wing Pilot Relationship Specialty Start Date End Date Manda Dorantes MD, MPH [address] [place] [address] [email or web address] PCP - General Internal Medicine 01/01/17 Manda Dorantes MD, MPH [address] [place] [address] [email or web address] Partners Attributed Provider 03/13/17 06/24/23 Raoul Nogueira MD [address] [place] [address] [email or web address] Insurance Assigned Provider 01/31/21 04/25/22 Raoul Nogueira MD [address] [place] [address] [email or web address] Insurance Assigned Provider 05/23/22 06/20/22 documented as of this encounter Additional Source Comments The information contained in this document represents components of the legal health record. It is not the complete legal health record.[facility]
--- OUTSIDE RECORDS SUMMARY | 2024-10-25 03:52 | XMS_ITS | Encounter Summary ---
Author Organization [facility] Address [address] [place] [address] Phone Care Team Providers Care Used Car Renovator Name Role Phone Manda Dorantes MD, MPH Primary Care Provider [phone] Manda Dorantes MD, MPH Unavailable [phone] Raoul Nogueira MD Unavailable [phone] Raoul Nogueira MD Unavailable [phone] Raoul Nogueira MD Unavailable [phone] Encounter Details Date Type Department Care Team (Late st Contact Info) Description 04/23/2020 Procedure Pass [facility] [address] [place] [address] Social History Tobacco Use Types Packs/Day Years [...] high school, GED, job training, learning the [place] language, technical skills, or developing parenting [...] Info) Description 11/07/2024 9:00 AM EDT Telemedicine [address], [address] [place] [address] Jeremias Lawrence MD [address] [place] [address] [email or web address] 12/13/2024 8:30 AM EDT Telemedicine [facility] 50 [facility] [address] [place] [address] Sammy Groves MD 50 [facility], 4th Floor [address] [place] [address] [email or web address] 12/22/2024 8:00 AM EST Appointment [facility] Nuclear Medicine [address] [place] [address] Tanvi English MD, DrPH 55 [facility] [address] [place] [address] [email or web address] 01/08/2025 12:35 PM EST Office Visit [facility] 50 [facility] 340 [place] [address] Timbo Calle MD [address] [place] [address] [email or web address] documented as of this encounter [...] documented as of this encounter Care Teams Used Car Renovator Relationship Specialty Start Date End Date Manda Dorantes MD, MPH 15 [place] [address] [email or web address] PCP - General Internal Medicine 01/01/17 Manda Dorantes MD, MPH 15 [place] [address] [facility] Partners Attributed Provider 03/13/17 06/24/23 Raoul Nogueira MD [address] [place] [address] [email or web address] Insurance Assigned Provider 11/23/20 12/21/20 Raoul Nogueira MD [address] [place] [address] [email or web address] Insurance Assigned Provider 01/31/21 04/25/22 Raoul Nogueira MD [address] [place] [address] [email or web address] Insurance Assigned Provider 05/23/22 06/20/22 documented as of this encounter Additional Source Comments The information contained in this document represents components of the legal health record. It is not the complete legal health record.[facility]
--- OUTSIDE RECORDS SUMMARY | 2024-10-25 03:52 | XMS_ITS | Encounter Summary ---
Author Organization [facility] Address [address] [place] [address] Phone Care Team Providers Care Rocket Test Fire Worker Name Role Phone Manda Dorantes MD, MPH Primary Care Provider [phone] Manda Dorantes MD, MPH Unavailable [phone] Reason for Visit * Reason Comments Medication Refill Encounter Details Date Type Department Care Team (Late st Contact Info) Description 12/10/2022 Refill [facility] 15 [facility], [address] [place] [address] Trevon Sierra MD 55 [facility] [address] [place] [address] [email or web address] Medication Refill Social History Tobacco Use [...] Info) Description 11/07/2024 9:00 AM EDT Telemedicine [address], [address] [place] [address] Jeremias Lawrence MD [address] [place] [address] [email or web address] 12/13/2024 8:30 AM EDT Telemedicine [facility] 50 [facility] [address] [place] [address] Sammy Groves MD [address] [facility], 4th Floor [address] [place] [address] [email or web address] 12/22/2024 8:00 AM EST Appointment [facility] Nuclear Medicine [address] [place] [address] Tanvi English MD, DrPH [address] [place] [address] [email or web address] 01/08/2025 12:35 PM EST Office Visit [facility] [address] [place] [address] Timbo Calle MD 55 [facility] [address] [place] [address] [email or web address] documented as of this encounter Visit Diagnoses Diagnosis Recurrent major depressive disorder, in full remission Generalized anxiety disorder documented in this encounter Additional Health Concerns Assessment Noted Time PHQ-9 Depression Total Score: 0 08/27/19 23 7:30 AM EDT PHQ-2 Depression Total Score: 0 08/27/19 23 7:30 AM EDT documented as of this encounter Care Teams Rocket Test Fire Worker Relationship Specialty Start Date End Date Manda Dorantes MD, MPH 15 [place] [address] [email or web address] PCP - General Internal Medicine 01/01/17 Manda Dorantes MD, MPH [address] [place] [address] [email or web address] Partners Attributed Provider 03/13/17 06/24/23 documented as of this encounter Additional Source Comments The information contained in this document represents components of the legal health record. It is not the complete legal health record.[facility]
--- OUTSIDE RECORDS SUMMARY | 2024-10-25 03:52 | XMS_ITS | Encounter Summary ---
Author Organization [facility] Address [address] [place] [address] Phone Care Team Providers Care Book Jogger Name Role Phone Manda Dorantes MD, MPH Primary Care Provider [phone] Encounter Details Date Type Department Care Team (Late st Contact Info) Description 10/13/2024 Telephone [facility] [address], [address] [place] [address] Jeremias Lawrence MD [address] [facility] 8 [place] [address] [email or web address] Social History Tobacco Use Types Packs/Day [...] high school, GED, job training, learning the Nepali language, technical skills, or developing parenting skills)? [...] Info) Description 11/07/2024 9:00 AM EDT Telemedicine [facility] [address] [place] [address] Jeremias Lawrence MD [address] [facility] 8 [place] [address] [email or web address] 12/13/2024 8:30 AM EDT Telemedicine [facility] [address] [facility] [address] [place] [address] Sammy Groves MD 50 [facility], 4th Floor [address] [place] [address] [email or web address] u 12/22/2024 8:00 AM EST Appointment [facility] Nuclear Medicine [address] [place] [address] Tanvi English MD, DrPH [address] [facility] [address] [place] [address] [email or web address] 01/08/2025 12:35 PM EST Office Visit [facility] Diabetes [facility] [address] [facility] [address] [place] [address] Timbo Calle MD [address] [facility] [address] [place] [address] [email or web address] documented as of this encounter Visit Diagnoses Not on filedocumented in this encounter Additional Health Concerns Assessment Noted Time PHQ-9 Depression Total Score: 0 08/27/19 23 7:30 AM EDT PHQ-2 Depression Total Score: 0 02/13/20 24 4:51 PM EST documented as of this encounter Care Teams Book Jogger Relationship Specialty Start Date End Date Manda Dorantes MD, MPH 15 [place] [address] [email or web address] PCP - General Internal Medicine 01/01/17 documented as of this encounter Additional Source Comments The information contained in this document represents components of the legal health record. It is not the complete legal health record.[facility]
--- OUTSIDE RECORDS SUMMARY | 2024-10-25 03:52 | XMS_ITS | Encounter Summary ---
Author Organization [facility] Address [address] [place] [address] Phone Care Team Providers Care Finance Administrator Name Role Phone Manda Dorantes MD, MPH Primary Care Provider Manda Dorantes MD, MPH Unavailable [phone] Raoul Nogueira MD Unavailable [phone] Raoul Nogueira MD Unavailable [phone] Encounter Details Date Type Department Care Team (Late st Contact Info) Description 01/30/2021 Ancillary Orders [facility] [address] [facility], [address] [place] [address] Manda Dorantes MD, MPH [address] [place] [address] [email or web address] Follow up Social History Tobacco Use Types [...] high school, GED, job training, learning the Peruvian language, technical skills, or developing parenting skills)? [...] Info) Description 11/07/2024 9:00 AM EDT Telemedicine [facility] [address] [facility], [address] [place] [address] Jeremias Lawrence MD [address] [place] [address] [email or web address] 12/13/2024 8:30 AM EDT Telemedicine [facility] Weight Center [address] [facility] [facility] [address] [place] [address] Sammy Groves MD [address] [facility], 4th Floor [address] [place] [address] [email or web address] 12/22/2024 8:00 AM EST Appointment [facility] Nuclear Medicine [address] [place] [address] Tanvi English MD, DrPH [address] [place] [address] [email or web address] 01/08/2025 12:35 PM EST Office Visit [facility] Diabetes Center [address] [place] [address] Timbo Calle MD 55 [facility] [address] [place] [address] [email or web address] documented as of this encounter Results * [...] core biopsy is recommended. The breast clinic business process coordinator will contact the patient to schedule [...] for diagnostic evaluation of a finding in 2345.comight breast. PROCEDURE: Diagnostic mammographic and tomosynthesis views [...] 02/22/2021 03/15/2021 1:22 AM EST CoV-Presumed 08/18/2021 08/18/202109/0809/08/2021 1:21 AM EDT Assessment Noted Time PHQ-2 Depression Total Score: 2 04/17/19 18 8:39 AM EST documented as of this encounter Care Teams Finance Administrator Relationship Specialty Start Date End Date Manda Dorantes MD, MPH 15 [place] [address] [email or web address] PCP - General Internal Medicine 01/01/17 Manda Dorantes MD, MPH 15 [place] [address] [email or web address] Partners Attributed Provider 03/13/17 06/24/23 Raoul Nogueira MD 50 [place] [address] [email or web address] Insurance Assigned Provider 01/31/21 04/25/22 Raoul Nogueira MD 50 [place] [address] [email or web address] Insurance Assigned Provider 05/23/22 06/20/22 documented as of this encounter Additional Source Comments The information contained in this document represents components of the legal health record. It is not the complete legal health record.[facility]
--- OUTSIDE RECORDS SUMMARY | 2024-10-25 03:52 | XMS_ITS | Encounter Summary ---
Author Organization [facility] Address [address] [place] [address] Phone Care Team Providers Care Police Academy Instructor Name Role Phone Manda Dorantes MD, MPH Primary Care Provider [phone] Manda Dorantes MD, MPH Unavailable [phone] Raoul Nogueira MD Unavailable [phone] Raoul Nogueira MD Unavailable [phone] Encounter Details Date Type Department Care Team (Late st Contact Info) Description 03/10/2022 Procedure Pass [facility] Breast [facility] [address] [facility] [address] [place] [address] Social History Tobacco Use Types Packs/Day Years [...] high school, GED, job training, learning the Ukrainian language, technical skills, or developing parenting skills)? [...] Info) Description 11/07/2024 9:00 AM EDT Telemedicine [address], [address] [place] [address] Jeremias Lawrence MD [address] [place] [address] 8 [place] [address] [email or web address] 12/13/2024 8:30 AM EDT Telemedicine [facility] Weight Center [address] [facility] [address] [place] [address] Sammy Groves MD [address] [facility], 4th Floor [address] [place] [address] [email or web address] 12/22/2024 8:00 AM EST Appointment [facility] Nuclear Medicine [address] [place] [address] Tanvi English MD, DrPH 55 [facility] [address] [place] [address] [email or web address].[place].[facility] 01/08/2025 12:35 PM EST Office Visit [facility] Diabetes Center 50 [facility] 340 [place] [address] Timbo Calle MD [address] [place] [address] [email or web address] documented as of this encounter Visit Diagnoses Not on filedocumented in this encounter Additional Health Concerns Assessment Noted Time PHQ-9 Depression Total Score: 0 04/08/19 8:28 AM EST PHQ-2 Depression Total Score: 0 06/04/19 8:39 AM EDT documented as of this encounter Care Teams Police Academy Instructor Relationship Specialty Start Date End Date Manda Dorantes MD, MPH 15 [place] [address] [email or web address] PCP - General Internal Medicine 01/01/17 Manda Dorantes MD, MPH [address] [place] [address] [email or web address] Partners Attributed Provider 03/13/17 06/24/23 Raoul Nogueira MD [address] [place] [address] [email or web address] Insurance Assigned Provider 01/31/21 04/25/22 Raoul Nogueira MD [address] [place] [address] [email or web address] Insurance Assigned Provider 05/23/22 06/20/22 documented as of this encounter Additional Source Comments The information contained in this document represents components of the legal health record. It is not the complete legal health record.[facility]
--- OUTSIDE RECORDS SUMMARY | 2024-10-25 03:52 | XMS_ITS | Encounter Summary ---
Author Organization [facility] Address [address] [place] [address] Phone Care Team Providers Care Triage Rn Name Role Phone Manda Dorantes MD, MPH Primary Care Provider [phone] Reason for Visit * Reason Comments Medication Refill Encounter Details Date Type Department Care Team (Late st Contact Info) Description 09/25/2024 Refill [facility] [address] [facility], [address] [place] [address] Jeremias Lawrence MD [address] [place] [address] [email or web address] Medication Refill Social History Tobacco Use Types [...] high school, GED, job training, learning the Cymro language, technical skills, or developing parenting skills)? [...] Info) Description 11/07/2024 9:00 AM EDT Telemedicine [facility] [address] [facility], [address] [place] [address] Jeremias Lawrence MD 55 [facility] 8 [place] [address] [email or web address] 12/13/2024 8:30 AM EDT Telemedicine [facility] Weight [facility] [address] [facility] [address] [place] [address] Sammy Groves MD 50 [facility], 4th Floor [address] [place] [address] [email or web address] 12/22/2024 8:00 AM EST Appointment [facility] Nuclear Medicine [address] [place] [address] Tanvi English MD, DrPH 55 [facility] [address] [place] [address] [email or web address] 01/08/2025 12:35 PM EST Office Visit [facility] Diabetes [facility] [address] [facility] [address] [place] [address] Timbo Calle MD 55 [facility] [address] [place] [address] [email or web address] documented as of this encounter Visit Diagnoses Not on filedocumented in this encounter Additional Health Concerns Assessment Noted Time PHQ-9 Depression Total Score: 0 08/27/19 7:30 AM EDT PHQ-2 Depression Total Score: 0 02/13/20 4:51 PM EST documented as of this encounter Care Teams Triage Rn Relationship Specialty Start Date End Date Manda Dorantes MD, MPH [address] [place] [phone] (work) [email or web address] PCP - General Internal Medicine 01/01/17 documented as of this encounter Additional Source Comments The information contained in this document represents components of the legal health record. It is not the complete legal health record.[facility]
--- OUTSIDE RECORDS SUMMARY | 2024-10-25 03:52 | XMS_ITS | Encounter Summary ---
Author Organization [facility] Address [address] [place] [address] Phone Care Team Providers Care Product Development Director Name Role Phone Manda Dorantes MD, MPH Primary Care Provider [phone] Manda Dorantes MD, MPH Unavailable [phone] Raoul Nogueira MD Unavailable [phone] Raoul Nogueira MD Unavailable [phone] Raoul Nogueira MD Unavailable [phone] Reason for Visit * Reason Comments Medication Refill Encounter Details Date Type Department Care Team (Late st Contact Info) Description 08/21/2018 Refill [facility] Diabetes Center [address] [facility] [address] [place] [address] Ewelina Houston, LEYDI Medication Refill Social History [...] high school, GED, job training, learning the Pashto language, technical skills, or developing parenting skills)? [...] Info) Description 11/07/2024 9:00 AM EDT Telemedicine [facility] [address] [facility], [address] [place] [address] Jeremias Lawrence MD 55 [facility] 8 [place] [address] [email or web address] 12/13/2024 8:30 AM EDT Telemedicine [facility] Weight Center [address] [facility] [address] [place] [address] Sammy Groves MD 50 [facility], 4th Floor [address] [place] [address] [email or web address] 12/22/2024 8:00 AM EST Appointment [facility] Nuclear Medicine [address] [place] [address] Tanvi English MD, DrPH 55 [facility] [address] [place] [address] [email or web address] 01/08/2025 12:35 PM EST Office Visit [facility] Diabetes Center [address] [facility] [address] [place] [address] Timbo Calle MD 55 [facility] [address] [place] [address] [email or web address] documented as of this encounter Visit [...] documented as of this encounter Care Teams Product Development Director Relationship Specialty Start Date End Date Manda Dorantes MD, MPH 15 [place] [address] [email or web address] PCP - General Internal Medicine 01/01/17 Manda Dorantes MD, MPH [address] [place] [address] [email or web address] Partners Attributed Provider 03/13/17 06/24/23 Raoul Nogueira MD [address] [place] [address] [email or web address] Insurance Assigned Provider 11/23/20 12/21/20 Raoul Nogueira MD 50 [place] [address] [email or web address] Insurance Assigned Provider 01/31/21 04/25/22 Raoul Nogueira MD 50 [place] [address] [email or web address] Insurance Assigned Provider 05/23/22 06/20/22 documented as of this encounter Additional Source Comments The information contained in this document represents components of the legal health record. It is not the complete legal health record.[facility]
--- OUTSIDE RECORDS SUMMARY | 2024-10-25 03:52 | XMS_ITS | Encounter Summary ---
Author Organization [facility] Address [address] [place] [address] Phone Care Team Providers Care Airline Transport Pilot Name Role Phone Manda Dorantes MD, MPH Primary Care Provider Manda Dorantes MD, MPH Unavailable [phone] Raoul Nogueira MD Unavailable [phone] Raoul Nogueira MD Unavailable [phone] Reason for Visit * Reason Comments Medication Refill Encounter Details Date Type Department Care Team (Late st Contact Info) Description 07/10/[address] [place] [address] Amie Garcia, [address] [address] [email or web address] Medication Refill Social History Tobacco [...] high school, GED, job training, learning the Botswanan language, technical skills, or developing parenting skills)? [...] Info) Description 11/07/2024 9:00 AM EDT Telemedicine [address], [address] [place] [address] Jeremias Lawrence MD [address] [place] [address] [email or web address] 12/13/2024 8:30 AM EDT Telemedicine [facility] Weight Center [address] [facility] [address] [place] [address] Sammy Groves MD 50 , 4th [address] [place] [address] [email or web address] 12/22/2024 8:00 AM EST Appointment [facility] Nuclear Medicine [address] [place] [address] Tanvi English MD, DrPH [address] [place] [address] [email or web address] 01/08/2025 12:35 PM EST Office Visit [facility] Diabetes Center 50 [facility] 340 [place] [address] Timbo Calle MD 55 [facility] [address] [place] [address] [email or web address]@[email or web address] documented as of this encounter Visit Diagnoses Not on filedocumented in this encounter Additional Health Concerns Infection Onset Date Last Indicated Resolved Time CoV-Presumed 08/18/2021 08/18/2021 09/08/2021 1:21 AM EDT Assessment Noted Time PHQ-2 Depression Total Score: 0 07/11/19 11:49 AM EDT documented as of this encounter Care Teams Airline Transport Pilot Relationship Specialty Start Date End Date aMnda Dorantes MD, MPH [address] [place] [address] [email or web address] PCP - General Internal Medicine 01/01/17 Manda Dorantes MD, MPH [address] [place] [address] [email or web address] Partners Attributed Provider 03/13/17 06/24/23 Raoul Nogueira MD [address] [place] [address] [email or web address] Insurance Assigned Provider 01/31/21 04/25/22 Raoul Nogueira MD [address] [place] [address] [email or web address] Insurance Assigned Provider 05/23/22 06/20/22 documented as of this encounter Additional Source Comments The information contained in this document represents components of the legal health record. It is not the complete legal health record.[facility]
--- OUTSIDE RECORDS SUMMARY | 2024-10-25 03:52 | XMS_ITS | Encounter Summary ---
Author Organization [facility] Address [address] [place] [address] Phone Care Team Providers Care Reed Man Name Role Phone Manda Dorantes MD, MPH Primary Care Provider Manda Dorantes MD, MPH Unavailable [phone] Raoul Nogueira MD Unavailable [phone] Raoul Nogueira MD Unavailable [phone] Reason for Referral * - Closed Specialty Diagnoses / Procedures Referred By Kenyon vann Referred To Contact Radiology Diagnoses Follow up Procedures US Breast (Right) Manda Dorantes MD, MPH Phone: tel: fax: mailto:[email or web address] Referral ID Status Reason Start Date Expiration Date Visits Re quested Visits Authorized [id number] Closed 02/01/2021 02/01/2022 1 1 Encounter Details Date Type Department Care Team (Late st Contact Info) Description 02/01/2021 Ancillary Orders [facility] [address] [facility], [address] [place] [address] Manda Dorantes MD, MPH [address] [place] [address] BUD@[email or web address] Follow up Social History Tobacco Use [...] high school, GED, job training, learning the Tajik language, technical skills, or developing parenting skills)? [...] Info) Description 11/07/2024 9:00 AM EDT Telemedicine [facility] [address] [facility], [address] [place] [address] Jeremias Lawrence MD [address] [place] [address] [email or web address] 12/13/2024 8:30 AM EDT Telemedicine [facility] Weight Center [address] [place] [address] Sammy Groves MD [address] [facility] [address], 4th Floor [address] [place] [address] [email or web address] 12/22/2024 8:00 AM EST Appointment [facility] Nuclear Medicine [address] [facility] [place] [address] Tanvi English MD, DrPH [address] [facility] [address] [place] [address] [email or web address] 01/08/2025 12:35 PM EST Office Visit [facility] Diabetes Center [address] [facility] [address] [place] [address] Timbo Calle MD [address] [place] [address] [address] [place] [address] [email or web address]@[facility] documented as of this encounter Results * [...] core biopsy is recommended. The breast clinic rehabilitation coordinator will contact the patient to schedule [...] directly toschedule the biopsy procedure. us Manda Dornates MD, MPH IMG BREAST Final Result documented in this encounter [...] documented as of this encounter Care Teams Reed Man Relationship Specialty Start Date End Date Manda Dorantes MD, MPH 15 [place] [address] [email or web address] PCP - General Internal Medicine 01/01/17 Manda Dorantes MD, MPH 15 [place] [address] [email or web address] Partners Attributed Provider 03/13/17 06/24/23 Raoul Nogueira MD 50 [place] [address] [email or web address] Insurance Assigned Provider 01/31/21 04/25/22 Raoul Nogueira MD 50 [place] [address] [email or web address] Insurance Assigned Provider 05/23/22 06/20/22 documented as of this encounter Additional Source Comments The information contained in this document represents components of the legal health record. It is not the complete legal health record.[facility]
--- OUTSIDE RECORDS SUMMARY | 2024-10-25 03:52 | XMS_ITS | Encounter Summary ---
Author Organization [facility] Address [address] [facility] [place] [address] Phone Care Team Providers Care Speech Language Pathology Assistant Name Role Phone Manda Dorantes MD, MPH Primary Care Provider [phone] Manda Dorantes MD, MPH Unavailable [phone] Raoul Nogueira MD Unavailable Raoul Nogueira MD Unavailable [phone] Reason for Referral * Outpatient Procedure - Closed Specialty Diagnoses / Procedures Referred By Kenyon vann Referred To Contact Radiology Diagnoses Breast calcification, right Procedures Mammogram Diagnostic Post Procedure (Right) Manda Dorantes MD, MPH Phone: tel: fax: mailto:[email or web address] Referral ID Status Reason Start Date Expiration Date Visits Re quested Visits Authorized [id number] Closed 02/10/2021 02/10/2022 1 1 * Outpatient Procedure - Closed Specialty Diagnoses / Procedures Referred By Kenyon vann Referred To Contact Radiology Diagnoses Breast calcification, right Procedures Mammogram Stereotactic Breast Core Biopsy (Right) Manda Dorantes MD, MPH Phone: tel: fax: mailto:[email or web address] Referral ID Status Reason Start Date Expiration Date Visits Re quested Visits Authorized [id number] Closed 02/10/2021 02/10/2022 1 1 Encounter Details Date Type Department Care Team (Late st Contact Info) Description 02/10/2021 Ancillary Orders [facility] [place], [address] [address] Manda Dorantes MD, MPH [address] [place] [address] [email or web address] Breast calcification, right Social History Tobacco [...] high school, GED, job training, learning the Sierra Leonean language, technical skills, or developing parenting skills)? [...] Info) Description 11/07/2024 9:00 AM EDT Telemedicine [facility] [address] [facility], [address] [place] [address] Jeremias Lawrence MD 55 [facility] 8 [place] [address] [email or web address] 12/13/2024 8:30 AM EDT Telemedicine [facility] [address] [facility] [address] [place] [address] Sammy Groves MD 50 [facility], 4th Floor [address] [place] [address] [email or web address] 12/22/2024 8:00 AM EST Appointment [facility] [place] [address] [place] [address] Tanvi English MD, DrPH [address] [facility] [address] [place] [address] [email or web address] 01/08/2025 12:35 PM EST Office Visit [facility] [address] [facility] [address] [place] [address] Timbo Calle MD [address] [facility] [address] [place] [address] [email or web address] documented as of this encounter Results [...] removed and hemostasis achieved. Post-procedure mammography demonstrates medical claims representative sampling of the calcifications and accurate [...] and written informed consent was obtained. A rum-nqjruyqrkidcj-ggo was performed using two patient identifiers, confirming [...] removed and hemostasis achieved. Post-procedure mammography demonstrates medical claims representative sampling of thecalcifications and accurate deployment [...] removed and hemostasis achieved. Post-procedure mammography demonstrates medical claims representative sampling of the calcifications and accurate [...] and written informed consent was obtained. A uwo-urodvepdsheeq-ekh was performed using two patient identifiers, confirming [...] removed and hemostasis achieved. Post-procedure mammography demonstrates medical claims representative sampling of thecalcifications and accurate deployment [...] documented as of this encounter Care Teams Speech Language Pathology Assistant Relationship Specialty Start Date End Date Manda Dorantes MD, MPH [address] [place] [address] [email or web address] PCP - General Internal Medicine 01/01/17 Manda Dorantes MD, MPH [address] [place] [address] [email or web address] Partners Attributed Provider 03/13/17 06/24/23 Raoul Nogueira MD [address] [place] [address] [email or web address] Insurance Assigned Provider 01/31/21 04/25/22 Raoul Nogueira MD [address] [place] [address] [email or web address] Insurance Assigned Provider 05/23/22 06/20/22 documented as of this encounter Additional Source Comments The information contained in this document represents components of the legal health record. It is not the complete legal health record.[facility]
--- OUTSIDE RECORDS SUMMARY | 2024-10-25 03:53 | XMS_ITS | Encounter Summary ---
Author Organization [facility] Address [address] [place] [address] Phone Care Team Providers Care Semi Truck Driver Name Role Phone Manda Dorantes MD, MPH Primary Care Provider Manda Dorantes MD, MPH Unavailable [phone] Raoul Nogueira MD Unavailable [phone] Raoul Nogueira MD Unavailable [phone] Raoul Nogueira MD Unavailable [phone] Encounter Details Date Type Department Care Team (Late st Contact Info) Description 05/07/2020 Procedure Pass [facility] Breast [facility] [address] [facility] [address] [place] [address] Social History Tobacco Use Types Packs/Day Years [...] high school, GED, job training, learning the Moroccan language, technical skills, or developing parenting skills)? [...] Info) Description 11/07/2024 9:00 AM EDT Telemedicine [facility] [address] [facility], [address] [place] [address] Jeremias Lawrence MD [address] [place] [address] [email or web address] 12/13/2024 8:30 AM EDT Telemedicine [facility] Weight Center [address] [facility] [address] [place] [address] Sammy Groves MD 50 [facility], 4th Floor [address] [place] [address] [email or web address] 12/22/2024 8:00 AM EST Appointment [facility] Nuclear Medicine [address] [place] [address] Tanvi English MD, DrPH 55 [facility] [address] [place] [address] [email or web address] 01/08/2025 12:35 PM EST Office Visit [facility] Diabetes Center 50 [facility] 340 [place] [address] Timbo Calle MD [address] [place], [place] [id number] [place] [address] [email or web address] documented as of this encounter Visit [...] documented as of this encounter Care Teams Semi Truck Driver Relationship Specialty Start Date End Date Manda Dorantes MD, MPH 15 [place] [address] [email or web address] PCP - General Internal Medicine 01/01/17 Manda Dorantes MD, MPH [address] [place] [address] [email or web address] Partners Attributed Provider 03/13/17 06/24/23 Raoul Nogueira MD [address] [place] [address] [email or web address] Insurance Assigned Provider 11/23/20 12/21/20 Raoul Nogueira MD [address] [place] [address] [email or web address] Insurance Assigned Provider 01/31/21 04/25/22 Raoul Nogueira MD [address] [place] [address] [email or web address] Insurance Assigned Provider 05/23/22 06/20/22 documented as of this encounter Additional Source Comments The information contained in this document represents components of the legal health record. It is not the complete legal health record.[facility]
--- OUTSIDE RECORDS SUMMARY | 2024-10-25 03:53 | XMS_ITS | Encounter Summary ---
Author Organization [facility] Address [address] [place] [address] Phone Care Team Providers Care Ordnance Officer Name Role Phone Manda Dorantes MD, MPH Primary Care Provider [phone] Manda Dorantes MD, MPH Unavailable [phone] Encounter Details Date Type Department Care Team (Late st Contact Info) Description 05/24/2023 Procedure Pass [facility] [address] [place] [address] Social History Tobacco Use Types Packs/Day Years [...] Info) Description 11/07/2024 9:00 AM EDT Telemedicine [address], [address] [place] [address] Jeremias Lawrence MD 55 [facility] 8 [place] [address] [email or web address] 12/13/2024 8:30 AM EDT Telemedicine [facility] Weight Center [address] [facility] [address] [place] [address] Sammy Groves MD 50 [facility], 4th Floor [address] [place] [address] [email or web address] 12/22/2024 8:00 AM EST Appointment [facility] Nuclear Medicine 55 [place] [address] Tanvi English MD, DrPH 55 [facility] [address] [place] [address] [email or web address] 01/08/2025 12:35 PM EST Office Visit [facility] Diabetes Center [address] [place] [address] Timbo Calle MD [address] [place] [address] [email or web address] documented as of this encounter Visit Diagnoses Not on filedocumented in this encounter Additional Health Concerns Assessment Noted Time PHQ-9 Depression Total Score: 0 08/27/19 23 7:30 AM EDT PHQ-2 Depression Total Score: 0 08/31/19 24 10:24 AM EDT documented as of this encounter Care Teams Ordnance Officer Relationship Specialty Start Date End Date Manda Dorantes MD, MPH 15 [place] [address] [email or web address] PCP - General Internal Medicine 01/01/17 Manda Dorantes MD, MPH [address] [place] [address] [email or web address] Partners Attributed Provider 03/13/17 06/24/23 documented as of this encounter Additional Source Comments The information contained in this document represents components of the legal health record. It is not the complete legal health record.[facility]
--- OUTSIDE RECORDS SUMMARY | 2024-10-25 03:53 | XMS_ITS | Encounter Summary ---
Author Organization [facility] Address [address] [place] [address] Phone Care Team Providers Care Interpersonal Communications Professor Name Role Phone Manda Dorantes MD, MPH Primary Care Provider [phone] Manda Dorantes MD, MPH Unavailable [phone] Raoul Nogueira MD Unavailable [phone] Raoul Nogueira MD Unavailable [phone] Raoul Nogueira MD Unavailable [phone] Raoul Nogueira MD Unavailable [phone] Encounter Details Date Type Department Care Team (Late st Contact Info) Description 04/11/2018 Ancillary Orders [facility] Imaging - Xray, [place] [address] [place] [address], 3rd [place] [address] Manda Dorantes MD, MPH 15 [place] [address] [email or web address] du Breast cancer screening Social History Tobacco [...] Info) Description 11/07/2024 9:00 AM EDT Telemedicine [facility] [address] [facility], [address] [place] [address] Jeremias Lawrence MD 55 [facility] 8 [place] [address] [email or web address] 12/13/2024 8:30 AM EDT Telemedicine [facility] Weight Center [address] [facility] [address] [place] [address] Sammy Groves MD 50 [facility], 4th Floor [address] [place] [address] [email or web address] 12/22/2024 8:00 AM EST Appointment [facility] Nuclear Medicine [address] [place] [address] Tanvi English MD, DrPH [address] [facility] [address] [place] [address] [email or web address] 01/08/2025 12:35 PM EST Office Visit [facility] Diabetes Center 50 [facility] [address] [place] [address] Timbo Calle MD [address] [facility] [address] [place] [address] [email or web address] documented as of this encounter Results * [...] Noted Time PHQ-2 Depression Total Score: 2 03/02/20 18 8:39 AM EST documented as of this encounter Care Teams Interpersonal Communications Professor Relationship Specialty Start Date End Date Manda Dorantes MD, MPH 15 [place] [address] [email or web address] PCP - General Internal Medicine 01/01/17 Manda Dorantes MD, MPH 15 [place] [address] [email or web address] Partners Attributed Provider 03/13/17 06/24/23 Raoul Nogueira MD 50 [place] [address] [email or web address] Insurance Assigned Provider 06/19/17 05/21/18 Raoul Nogueira MD 50 [place] [address] [email or web address] Insurance Assigned Provider 11/23/20 12/21/20 Raoul Nogueira MD 50 [place] [address] [email or web address] Insurance Assigned Provider 01/31/21 04/25/22 Raoul Nogueira MD 50 [place] [address] [email or web address] Insurance Assigned Provider 05/23/22 06/20/22 documented as of this encounter Additional Source Comments The information contained in this document represents components of the legal health record. It is not the complete legal health record.[facility]
--- OUTSIDE RECORDS SUMMARY | 2024-10-25 03:53 | XMS_ITS | Encounter Summary ---
Author Organization [facility] Address [address] [place] [address] Phone Care Team Providers Care Doctor Of Optometry Name Role Phone Manda Dorantes MD, MPH Primary Care Provider [phone] Reason for Visit * Reason Onset Date Comments Medication Refill 12/21/2023 Encounter Details Date Type Department Care Team (Late st Contact Info) Description 12/21/2023 Telephone [facility] [address] [facility], [address] [place] [address] Jeremias Lawrence MD [address] [place] [address] [email or web address] du Medication Refill Social History Tobacco Use [...] high school, GED, job training, learning the Syriac language, technical skills, or developing parenting skills)? [...] Info) Description 11/07/2024 9:00 AM EDT Telemedicine [facility] [address] [facility], [address] [place] [address] Jeremias Lawrence MD [address] [address] [email or web address] 12/13/2024 8:30 AM EDT Telemedicine [facility] Weight Center 50 [facility] [email or web address] [address] [place] [address] Sammy Groves MD 50 [facility], 4th Floor [address] [place] [address] [email or web address] u 12/22/2024 8:00 AM EST Appointment [facility] Nuclear Medicine [address] [facility] [place] [address] Tanvi English MD, DrPH 55 [facility] [address] [place] [address] [email or web address] 01/08/2025 12:35 PM EST Office Visit [facility] Diabetes Center 50 [facility] [address] [place] [address] Timbo Calle MD 55 [facility] [address] [place] [address] [email or web address] documented as of this encounter Visit Diagnoses Not on filedocumented in this encounter Additional Health Concerns Assessment Noted Time PHQ-9 Depression Total Score: 0 08/27/19 23 7:30 AM EDT PHQ-2 Depression Total Score: 0 08/31/19 24 10:24 AM EDT documented as of this encounter Care Teams Doctor Of Optometry Relationship Specialty Start Date End Date Manda Doratnes MD, MPH [address] [place] [address] [email or web address] PCP - General Internal Medicine 01/01/17 documented as of this encounter Additional Source Comments The information contained in this document represents components of the legal health record. It is not the complete legal health record.[facility]
--- OUTSIDE RECORDS SUMMARY | 2024-10-25 03:53 | XMS_ITS | Encounter Summary ---
Author Organization [facility] Address [address] [place] [address] Phone Care Team Providers Care Bunch Breaker Name Role Phone Manda Dorantes MD, MPH Primary Care Provider [phone] Manda Dorantes MD, MPH Unavailable [phone] Raoul Nogueira MD Unavailable [phone] Raoul Nogueira MD Unavailable [phone] Raoul Nogueira MD Unavailable [phone] Encounter Details Date Type Department Care Team (Late st Contact Info) Description 05/15/2020 Procedure Pass [facility] Breast Evaluation Center [address] [facility] [address] [place] [address] Social History Tobacco Use Types Packs/Day Years [...] GED, job training, learning the [place] language, technical skills, or developing parenting skills)? [...] Info) Description 11/07/2024 9:00 AM EDT Telemedicine [facility] [address] [facility], [address] [place] [address] Jeremias Lawrence MD [address] [place] [address] [email or web address] 12/13/2024 8:30 AM EDT Telemedicine [facility] Weight Center 50 [facility] [address] [place] [address] Sammy Groves MD [address] [facility], 4th Floor [address] [place] [address] [email or web address] 12/22/2024 8:00 AM EST Appointment [facility] Nuclear Medicine [address] [place] [address] Tanvi English MD, DrPH 55 [facility] [address] [place] [address] [email or web address] 01/08/2025 12:35 PM EST Office Visit [facility] Diabetes Center 50 [facility] 340 [place] [address] Timbo Calle MD [address] [place], [place] [address] [place] [address] [email or web address] documented as of this encounter Visit [...] documented as of this encounter Care Teams Bunch Breaker Relationship Specialty Start Date End Date Manda Dorantes MD, MPH 15 [place] [address] [email or web address] PCP - General Internal Medicine 01/01/17 Manda Dorantes MD, MPH [address] [place] [address] [email or web address] Partners Attributed Provider 03/13/17 06/24/23 Raoul Nogueira MD [address] [place] [address] [email or web address] Insurance Assigned Provider 11/23/20 12/21/20 Raoul Nogueira MD [address] [place] [address] [email or web address] Insurance Assigned Provider 01/31/21 04/25/22 Raoul Nogueira MD [address] [place] [address] [email or web address] Insurance Assigned Provider 05/23/22 06/20/22 documented as of this encounter Additional Source Comments The information contained in this document represents components of the legal health record. It is not the complete legal health record.[facility]
--- OUTSIDE RECORDS SUMMARY | 2024-10-25 03:53 | XMS_ITS | Encounter Summary ---
Author Organization [facility] Address [address] [place] [address] Phone Care Team Providers Care Bindery Machine Setter/Set Up Operator Name Role Phone Manda Dorantes MD, MPH Primary Care Provider [phone] Manda Dorantes MD, MPH Unavailable [phone] Raoul Nogueira MD Unavailable [phone] Raoul Nogueira MD Unavailable [phone] Reason for Visit * Reason Comments Medication Refill Encounter Details Date Type Department Care Team (Late st Contact Info) Description 02/08/2022 Refill [facility] 15 [facility], [address] [place] [address] Trevon Sierra MD [address] [place] [address] for Bipolar Treatment and [facility] [address] [place] [address] [email or web address] Medication Refill Social History Tobacco Use [...] high school, GED, job training, learning the Slovak language, technical skills, or developing parenting skills)? [...] Info) Description 11/07/2024 9:00 AM EDT Telemedicine [address], [address] [place] [address] Jeremias Lawrence MD [address] [place] [address] [email or web address] 12/13/2024 8:30 AM EDT Telemedicine [facility] Weight Center [address] [facility] [address] [place] [address] Sammy Groevs MD 50 [facility], 4th Floor [address] [place] [address] [email or web address] 12/22/2024 8:00 AM EST Appointment [facility] Nuclear Medicine [address] [place] [address] Tanvi English MD, DrPH [address] [place] [address] [email or web address] 01/08/2025 12:35 PM EST Office Visit [facility] Diabetes Center 50 [facility] [address] [place] [address] Timbo Calle MD 55 [facility] [address] [place] [address] [email or web address] documented as of this encounter Visit Diagnoses Diagnosis Recurrent major depressive disorder, in full remission documented in this encounter Additional Health Concerns Assessment Noted Time PHQ-2 Depression Total Score: 0 01/13/20 9:12 AM EST documented as of this encounter Care Teams Bindery Machine Setter/Set Up Operator Relationship Specialty Start Date End Date Manda Dorantes MD, MPH [address] [place] [address] [email or web address] PCP - General Internal Medicine 01/01/17 Manda Dorantes MD, MPH [address] [place] [address] [email or web address] Partners Attributed Provider 03/13/17 06/24/23 Raoul Nogueira MD [address] [place] [address] [email or web address] Insurance Assigned Provider 01/31/21 04/25/22 Raoul Nogueira MD [address] [place] [address] [email or web address] Insurance Assigned Provider 05/23/22 06/20/22 documented as of this encounter Additional Source Comments The information contained in this document represents components of the legal health record. It is not the complete legal health record.[facility]
--- OUTSIDE RECORDS SUMMARY | 2024-10-25 03:53 | XMS_ITS | Encounter Summary ---
Author Organization [facility] Address [address] [place] [address] Phone Care Team Providers Care Drafter Geological Name Role Phone Manda Dorantes MD, MPH Primary Care Provider [phone] Encounter Details Date Type Department Care Team (Late st Contact Info) Description 12/21/2023 Procedure Pass [facility] Holter Lab [address], 5th [address], [address] [place] [address] Social History Tobacco Use Types Packs/Day Years [...] high school, GED, job training, learning the Hungarian language, technical skills, or developing parenting skills)? [...] Info) Description 11/07/2024 9:00 AM EDT Telemedicine [facility] [address], [address] [place] [address] Jeremias Lawrence MD [address] [place] [address] 8 [place] [address] [email or web address] 12/13/2024 8:30 AM EDT Telemedicine [facility] Weight Center [address] [place] [address] Sammy Groves MD [address] 4th [address] [place] [address] [email or web address] 12/22/2024 8:00 AM EST Appointment [facility] Nuclear Medicine [address] [place] [address] Tanvi English MD, DrPH [address] [place] [address] [email or web address] 01/08/2025 12:35 PM EST Office Visit [facility] Diabetes Center [address] [place] [address] Timbo Calle MD [address] [facility] [address] [place] [address] [email or web address] documented as of this encounter Visit Diagnoses Not on filedocumented in this encounter Additional Health Concerns Assessment Noted Time PHQ-9 Depression Total Score: 0 08/27/19 23 7:30 AM EDT PHQ-2 Depression Total Score: 0 08/31/19 24 10:24 AM EDT documented as of this encounter Care Teams Drafter Geological Relationship Specialty Start Date End Date Manda Dorantes MD, MPH [address] [place] [address] [email or web address] PCP - General Internal Medicine 01/01/17 documented as of this encounter Additional Source Comments The information contained in this document represents components of the legal health record. It is not the complete legal health record.[facility]
--- OUTSIDE RECORDS SUMMARY | 2024-10-25 03:53 | XMS_ITS | Clinical Summary ---
Author Organization Located Within [facility] Address [address] [place] [address] Phone Care Team Providers Care Home Paraprofessional Name Role Phone Manda Dorantes MD, MPH Primary Care Provider [phone] Allergies Active Allergy Reactions Criticality Noted Date [...] SKIN EVERY 14 DAYS 6 mL 3 024 Active blood-glucose sensor (DEXCOM G7 SENSOR) Nancy [...] CAPSULES BY MOUTH DAILY 180 capsule 2 2024 Discontinued Active Problems Patient Care Coordination No te [...] and totalT4. Per discussion with her outpatient costume specialist, her levothyroxine dose is likely too high [...] and totalT4. Per discussion with her outpatient costume specialist, her levothyroxine dose is likely too high for her given significant weight loss past year. Possible that high dose levothyroxine may have contributed her restlessness, anxiety, and insomnia. - Discussed with Dr. Nougeira (Endocrinology) - decreased levothyroxine dose to 125mcg [...] and totalT4. Per discussion with her outpatient costume specialist, her levothyroxine dose is likely too high [...] EST): #Hx hypothyroidism Prescribed synthroid 150mcg daily Wed-Wed and 300mcg on Sundays but recently lost a lot of weight while on Wegovy. Patient presented to the ED two days prior to current admission due to HTN, chest pressure, palpitation, and anxiety. TFTs at that time showed normal TSH but elevated freeT4 and totalT4. Per discussion with her outpatient costume specialist, her levothyroxine dose is likely too high [...] on levothyroxine for hypothyroidism. Prescribed 150mcg daily Wed-Sat and 300mcg on Sundays. She recently lost significant amount of weight while on Wegovy. Patient presented to the ED two days prior to current admission due to HTN, chest pressure, palpitation, and anxiety. TFTs at that time showed normal TSH but elevated freeT4 and totalT4. Per discussion with her outpatient costume specialist, her levothyroxine dose is likely too high [...] and totalT4. After discussing with her outpatient costume specialist, her levothyroxine does appears high for her [...] step-up to MICU 12/27 for refractory hypoglycemia. [facility] is following closely, and due to [...] step-up to MICU 12/27 for refractory hypoglycemia. [facility] is following closely, and due to [...] step-up to MICU 12/27 for refractory hypoglycemia. [facility] is following closely, and due to [...] step-up to MICU 12/27 for refractory hypoglycemia. [facility] is following closely, and due to [...] pain 07/19/17 with EKG changes, taken to brine room laborer. Found 99% stenosis at mid LAD, 2 MILKA placed. While in ICU, metorpolol changed to carvedilol; spironolactone, plavix ( stopped 2019), ASA, lipitor, lisinopril started. Echo showed 35% EF, now 58%. F/b Dr. Emilee English. 08/31/2023 debbi Chavez. Unable to tolerate beta-blockers Latest ETT 01/2022 [...] AM EDT): Will schedule f/u with Dr. English Assessment & Plan (06/28/2018 2:51 PM EDT): Asymptomatic, doing well. Counseled on weight loss and increased exercise. Ischemic cardiomyopathy 09/02/2017 Overview (03/10/2022): S/p ST elevation [place] at OSH 2018, echo showed EF 35%. No arrhythmia detected [...] - GLP-1 indicated for prevention of further NY/CAD Encounter for annual routine gynecological exami nation 02/19/2017 Overview (08/31/2023): , mirena IUD for contraception, placed 12/2019 no menses. Sexually active with . Last pap/ hpv 2019 Assessment & Plan (09/04/2024 10:41 AM EDT): Will schedule appt with handbag parts cutter Assessment & Plan (08/31/2023 10:56 AM EDT): [...] sober x 2 years. Completed school for [employer], now has a job. Completed couples therapy, [...] - 3000 units Vitamin D3 (only needs 8354-8000 units standalone since some is in MVI) [...] - 3000 units Vitamin D3 (only needs 7614-7359 units standalone since some is in MVI) - Continue folic acid - Wegovy paused - Calorie counts - Nutrition consulted prior to ICU step-up, will re-engage on arrival to floor Assessment & Plan (01/01/2024 6:46 PM EST): #RYGBP 2011 #Concern for malnutrition Previously noted with [...] - Micronutrients per nutrition recs (in note 11/2) - Increase MVI-M to BID - 1200 mg calcium - 500 mg b12 - 3000 units Vitamin D3 (only needs 8545-3196 units standalone since some is in MVI) - continue folic acid - Wegovy paused - Calorie counts - Nutrition consulted prior to ICU step-up, will re-engage on arrival to floor Assessment & Plan (12/31/2023 1:35 PM EST): #RYGBP 2011 #Concern for malnutrition Previously noted with [...] - 3000 units Vitamin D3 (only needs 6602-9802 units standalone since some is in MVI) [...] (12/27/2023 12:44 PM EST): # RYGBP - 2011: # Concern for malnutrition: Previously noted with [...] diet... Colon Cancer: Will start at 47, MGAshish of colon cancer at 65. No other [...] Maintenance Due Topic COVID-19 VACCINE ( season) TSH LEVEL DEPRESSION SCREENING Assessment & [...] phone number she provided below. Angelica Humphries [facility] Addie Pods 2/3 Rn Ms, Patient of Dr. Dorantes. Both ears seem to be blocked. Possible wax. Sounds muffled. Wondering if someone can look at it today. Can someone please give a call? Thanks, Angelica Rocha Assessment & Plan (07/05/2019 10:07 AM EDT): [...] laparoscopic RYGB 01/2010 Pre-op: 207 lbs Post-op: samira 123 lbs (84 lbs WL = 40.5% [...] & Plan (09/04/2024 10:44 AM EDT): Assessment: Ramses Srivastava is a 49 y.o. female with adult [...] with the Weight Center Assessment & Plan (07/12/2024 8:57 AM EDT): Assessment: Ramses Srivastava is a 49 y.o. female with adult [...] & Plan (05/25/2024 2:25 PM EDT): Assessment: Ramses Srivastava is a 49 y.o. female with adult [...] & Plan (04/21/2024 12:47 PM EST): Assessment: Ramses Srivastava is a 49 y.o. female with adult [...] & Plan (03/16/2024 2:42 PM EST): Assessment: Ramses Srivastava is a 48 y.o. female with adult [...] beverages and ultra processed foods. Referred to car greaser Physical Activity plan: Gradually increase activity to [...] with the Weight Center 2 months with LEAD WORKER OF HOUSEKEEPING AND LAUNDRY and 4 months with me Assessment & [...] to Dr. Groves. - continue care with [facility] for weight management Assessment & Plan (02/21/2024 1:16 PM EST): Assessment: Ramses Srivastava is a 48 y.o. female with adult [...] beverages and ultra processed foods. Referred to car greaser Physical Activity plan: Gradually increase activity to [...] with the Weight Center 2 months with LEAD WORK[employer] HOU[employer] LAUNDRY and 4 months with me Assessment & Plan (08/31/2023 10:52 AM EDT): Doing well, weight remains stable, tolerating wegovy Assessment & Plan (08/26/2022 9:47 AM EDT): Remains on wegovy 2.4 mg, doing great. Weight remains stable ~ 112# Assessment & Plan (06/29/2022 8:55 AM EDT): Assessment: Ramses Srivastava is a 46 y.o. female with adult [...] a consistent meal routine b. Referred to car greaser 2. Physical Activity plan: a. Gradually increase [...] & Plan (12/26/2021 10:27 AM EST): Assessment: Ramses Srivastava is a 46 y.o. female with adult [...] a consistent meal routine b. Referred to car greaser 2. Physical Activity plan: a. Gradually increase [...] with excellent results, now back to her samira weight. Assessment & Plan (12/17/2020 12:08 PM [...] and working to get on it. Discussed [employer] pepe use as option to motivate 4. [...] S/p gastric bypass by Dr Brito 2009. Samira of 130# from 210#. Weight gained due [...] (03/13/2016): Condyloma accuminata. Service date: 04/03/2015. Author: Rozina Black MD. Comment: Extensive condyloma on vulva 04/01, requiring fulguration in OR No further lesions. Followed by Dr. Christian now--due for f/u 01/2016. Condyloma acuminatum; extensive [...] of phone overnight. If using phone, use DWNLD pepe (discussed). Cont other meds. Consider re-start [...] and totalT4. After discussing with her outpatient costume specialist, her levothyroxine does appears high for her [...] and totalT4. After discussing with her outpatient costume specialist, her levothyroxine does appears high for her [...] of phone overnight. If using phone, use DWNLD pepe (discussed). Cont other meds. Consider re-start [...] to do this 3-4x/wk. Takes train to [facility], then shuttle to [facility]--encouraged her to walk this. We [...] 300 units of insulin during her previous [facility] admission in Jan 2024. 49 y.o. female [...] her T1DM, she is followed at the [facility] Diabetes [facility] with last visit with Dr. [...] coming up, eat meal -Follow up in [facility] Diabetes Clinic as scheduled 02/23/24 at 8:30 am with Basilia Glasgow NP. Call prior to appointment if any diabetes related questions or concerns Assessment & Plan (02/07/2024 3:40 PM EST): Ms. Srivastava is a 48 y.o. female with PMH [...] up at 5pm. Insulin pump resumed- Ms. Srivastava placed CGM and pump with minimal prompting. [...] current settings (see above; order placed in Epic so she may use her own pump, site changing supplies, and insulin) - I reviewed the insulin pump self-management protocol with patient including expectations that she log her BG, carbs, and boluses on the provided sheet. Copies of the protocol placed in chart and reviewed with bedside nurse. - Please continue checking POCT BGs QAC/HS using our [facility] glucometer; all bolusing decisions by patient should [...] coming up, eat meal -Follow up in [facility] Diabetes Clinic as scheduled 02/23/24 at 8:30 am with Basilia Glasgow NP. Call prior to appointment if any diabetes related questions or concerns Assessment & Plan (01/16/2024 9:56 AM EST): Ms. Srivastava is a 48 y.o. female with PMH [...] & Plan (01/15/2024 10:42 AM EST): Ms. Srivastava is a 48 y.o. female with PMH [...] & Plan (01/14/2024 10:46 AM EST): Ms. Srivastava is a 48 y.o. female with PMH [...] & Plan (01/13/2024 11:01 AM EST): Ms. Srivastava is a 48 y.o. female with PMH [...] & Plan (01/12/2024 2:52 PM EST): Ms. Srivastava is a 48 y.o. female with PMH [...] & Plan (01/11/2024 11:45 AM EST): Ms. Srivastava is a 48 y.o. female with PMH [...] & Plan (01/10/2024 3:22 PM EST): Ms. Srivastava is a 48 y.o. female with PMH [...] DM1 - Hold Wegovy Assessment & Plan (01/02/2024 4:04 PM EST): [...] patient) - contraindicated in DM1 - Hold [facility] Assessment & Plan (01/01/2024 6:46 PM EST): [...] patient) - contraindicated in DM1 - Hold [facility] Assessment & Plan (12/31/2023 1:24 PM EST): [...] patient) - contraindicated in DM1 - Hold [facility] Assessment & Plan (01/04/2024 12:33 PM EST): Ms. Srivastava is a 48 y.o. female with PMH [...] BG > 200 mg/dL Recommendations:(orders updated in Epic) - Lantus 14 units qam, if NPO [...] Glucose >400 = 7 units and call - FSBG AC, HS, and if any [...] patient) - contraindicated in DM1 - Hold Yael Assessment & Plan (12/27/2023 12:44 PM EST): [...] patient) - contraindicated in DM1. - Hold Yael. Assessment & Plan (12/29/2023 3:06 PM EST): Ms. Srivastava is a 48 y.o. female with PMH [...] Insulin regimen was discussed with her outpatient costume specialist (kraig) - Start glargine 20 units qhs (patient is normally on 24 units of basal rate with pump), 10 units of patient is not eating/NPO - Lispro 4 units TIDAC and LSSI - appreciate diabetes team - POCT glucose QID - Hold home Jardiance (has not started yet per patient), and Yael Assessment & Plan (12/25/2023 6:45 PM EST): Patient is on insulin pump and followed by Dr. Raoul Nogueira. Her insulin pump was taken off in the ED. - Insulin regimen was discussed with her outpatient costume specialist (kraig) - Start glargine 20 units qhs [...] diabetes control - Could consider working with [facility] if she desires or appt with our [...] (04/16/2017 9:26 AM EST): Followed closely by mirian. Assessment & Plan (03/02/2017 3:05 PM EST): [...] pump wizard, will send me an e-mail [email or web address] Week to see whether numbers will improve; check A1c today. Resolved Problems Problem Noted Date Diagnosed Date Resolved Date Myalgia, upper arm 03/10/2022 3 Overview (03/10/2022): Pt c/o bilateral UE muscle pain from neck to forearms. Unsure if it is due to statins. She was cahnged to pravachol 01/2022, however pain remains. She is working with Dr. English and considering repatha. Assessment & Plan (08/26/2022 [...] EDT): (E-Visit) Asynchronous Virtual Visit Summary Patient: Ramses Weir ( ) Clinician: Dr. Yi Andrade Questionnaire: [facility] Center Follow-up Completed by Patient: 06/24/2015 Reviewed by Clinician: 10/30/2015 9:39 a.m. Duration: Eleven to fifteen minutes Follow-up: No further action requested. Dr. Andrade spoke with the patient. Note from Dr. Andrade: Dear Ramses, We spoke today by telephone about your [...] most of the time Daytime phone number [id number] [phone], cell [phone]; ?can we increase the dose of belviq? Smoker 04/18/2004 01/25/2015 Overview (04/07/2014): Smoking; *See attached note in [facility] Encounters * This document contains information received from the source organization and may not represent a complete record from that organization. Date Type Department Care Team Description 10/24/2024 Telephone [facility] [address] [place] [address] Timbo Calle MD 10/24/2024 Telephone [facility] [address] [address] [place] [address] Layne Quan RN 10/13/2024 Telephone [facility] [address] [facility], [address] [place] [address] Jeremias Lawrence MD 10/08/2024 5:29 PM EDT - 10/13/2024 11:00 PM EDT Hospital Encounter [facility] Emergency Dept [address] [place] [address] Lambert Mesa MD Coffey, [place] C, MD Cranmer, Ruthy Walsh MD, MPH Zo Burden MD, MPH Anna, MD Horacio Paul, MD Eloisa Milian Sahand, MD, PhD Emma Burton MD Taylor, John B, MD, RENATO Benny, MD Gunnar Gregory, Akin Elise MD, MPH Pavithra Saunders MD Bains, Ashika, MD Kim, Holly Burger MD, PhD Vern Rivas MD Discharge Disposition: [facility] 10/07/2024 8:00 AM EDT Telemedicine [facility] [address] [facility] [address] [place] [address] Timbo Calle MD Type 1 diabetes mellitus with other specified complication (Primary Dx) 10/05/2024 Orders Only [address], [address] [place] [address] Jeremias Lawrence MD 10/05/2024 Orders Only [address], [address] [place] [address] Jeermias Lawrence MD 10/04/2024 4:29 PM EDT - 10/04/2024 11:59 PM EDT Hospital Encounter [facility] [address] [facility] [address] [place] [address] Jeremias Lawrence MD Discharge Disposition: Home or Self Care 10/04/2024 4:29 PM EDT Hospital Encounter [facility] [address] [facility] [address] [place] [address] Manda Dorantes MD, MPH Discharge Disposition: Home or Self Care 10/04/2024 3:30 PM EDT Telemedicine [address], [address] [place] [address] Jeremias Lawrence MD Generalized anxiety disorder with panic attacks (Primary Dx); 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; 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 10/02/2024 Orders Only [facility] [address] [place] [address], [address] [place] [address] Manda Dorantes MD, MPH Vitamin D deficiency, unspecified (Primary Dx) 09/25/[address], [address] [place] [address] Jeremias Lawrence MD Medication Refill 09/04/2024 10:30 AM EDT Office Visit [facility] [address] [place] [address], 6[address] [place] [address] Manda Dorantes MD, MPH Ischemic cardiomyopathy (Primary Dx); ST elevation myocardial infarction involving left anterior descending (LAD) coronary artery; Type 1 diabetes mellitus with other specified complication; Other depression; Encounter for annual routine gynecological examination; Health care maintenance; History of obesity; Hypothyroidism due to Estevan thyroiditis 08/21/2024 6:13 AM EDT - 08/21/2024 11:59 PM EDT Hospital Encounter [facility] PATH[facility] [place] [address] Discharge Disposition: Home or Self Care 07/25/2024 10:30 AM EDT Telemedicine [address], [address] [place] [address] Jeremias Lawrence MD Generalized anxiety disorder with panic attacks (Primary Dx); 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 Unable to assess 10/09/2024 Paying for Meds [...] Info) Description 11/07/2024 9:00 AM EDT Telemedicine [address], [address] [place] [address] Jeremias Lawrence MD [address] [place] [address] [email or web address] 12/13/2024 8:30 AM EDT Telemedicine [facility] Weight Center [address] [place] [address] Sammy Groves MD [address] [facility] [facility] 4th [address] [place] [address] [email or web address] 12/22/2024 8:00 AM EST Appointment [facility] Nuclear Medicine [address] [place] [address] Tanvi English MD, DrPH [address] [facility] [address] [place] [address] [email or web address] 01/08/2025 12:35 PM EST Office Visit [facility] Diabetes [facility] [address] [facility] [address] [place] [address] Timbo Calle MD [address] [facility] [address] [place] [address] [email or web address] Health Maintenance Due Date Last Done Comments COLONOSCOPY 2022 FIT TEST 2022 FOBT 2022 SIGMOIDOSCOPY 2022 VIRTUAL COLONOSCOPY 2022 DIABETIC EYE EXAM 07/19/2024 07/20/2023, , 07/20/2023, Additional history exists INFLUENZA VACCINE (#1) 2024 , 12/03/2022, 12/07/2021, Additional history exists COVID-19 VACCINE ( season) 2024 12/21/2020, 03/23/2020, 02/24/2020 URINE MICROALBUMIN/CREATININE RATIO 12/20/2024 12/21/2023, 05/04/2023, 12/24/2021, Additional history exists PAP SMEAR 01/01/2025 01/02/2020, 12/16, 01/31/2016, Additional history exists DEPRESSION SCREENING 02/12/2025 02/13/2024, 08/27/19 HEMOGLOBIN A1C 02/21/2025 08/21/2024, 04/0 02/2024, 04/10/2024, Additional history exists BLOOD PRESSURE 03/07/2025 09/04/2024 LIPID PANEL 08/21/2025 08/21/2024, 04/15, 09/07/2022, Additional history exists MAMMOGRAM 09/22/2025 09/23/2023, /2 05/2022, 05/14/2020, Additional history exists TSH LEVEL [...] AND DIFFERENTIAL STAT 10/13/2024 1:11 PM EDT ECG 12-LEAD STAT 10/13/2024 12:55 PM EDT POCT GLUCOSE Routine 10/13/2024 12:42 [...] 6:26 AM EDT Coronary artery disease involving [place] coronary artery of skull valley heart with other form of angina pectoris [...] 6:26 AM EDT Coronary artery disease involving [place] coronary artery of skull valley heart with other form of angina pectoris MICROALBUMIN/CREATINI NE RATIO, RANDOM URINE Routine 12/21/2023 6:44 AM EST Type 1 diabetes mellitus with other specified complication BI MAMMOGRAM SCREENING WITH TOMOSYNTHESIS WITH CAD (BILATERAL) Routine 09/23/2023 7:24 AM EDT Screening due PAP TEST Routine 01/02/2020 12:00 AM EST HEPATITIS C ANTIBODY, QUALITATIVE Routine 10/18/2018 7:22 AM EDT Routine general medical examination at a health care facility from Last 3 Months or Most Recently Relevant to Health Maintenance Results * (ABNORMAL) POCT Glucose (10/13/2024 9:52 PM EDT) Only the most recent of35 resultswithin the time period is included. Glucose, POCT >500(HH) 70 - 110 mg/dL [facility] 10/13/2024 9:52 PM EDT 10/13/2024 9:54 PM EDT Vern Rivas MD POINT OF CARE TEST ORDERABLES Final Result Performing Organization Address City/[facility]/ZIP Co de Phone Number [address] [address] * POCT Glucose (10/13/2024 8:39 PM EDT) Only the most recent of16 resultswithin the time period is included. Glucose >500 70 - 100 mg/dL 10/13/2024 8:39 PM EDT Liseth Lester PA-C POINT OF CARE TEST ORDERABLE S Final Result * (ABNORMAL) Urinalysis w/reflex Urine Culture (10/13/2024 2:11 PM EDT) Only the most recent of3 resultswithin the time period is included. COLOR Yellow Yellow [facility] CLARITY Clear Clear [facility] GLUCOSE 3+(A) Negative [facility] Comment:(>=300 mg/dL) BILI Negative Negative [facility] KETONES Negative Negative [facility] SPECIFIC GRAVITY 1.022 1.001 - 1.035 [facility] BLOOD Negative Negative [facility] PH 7.0 5.0 - 9.0 [facility] Protein-UA Negative Negative [facility] UROBILINOGEN Negative Negative [facility] NITRITE Negative Negative [facility] Leukocyte esterase, ur Negative Negative [facility] Urine (Urine) 10/13/2024 2:1 1 PM EDT 10/13/2024 4:50 PM EDT Cesilia Navarrete CNP URINE ORDERABLES Final Resu lt Performing Organization Address City/[facility]/ZIP Co de Phone Number [address] [address] * (ABNORMAL) CBC and differential (10/13/2024 1:11 PM EDT) Only the most recent of2 resultswithin the time period is included. WBC 8.71 4.00 - 11.00 K/uL [facility] RBC 3.65(L) 4.00 - 5.20 M/uL [facility] HGB 11.8(L) 12.0 - 16.0 g/dL [facility] HCT 34.1(L) 36.0 - 46.0 % [facility] PLT 194 150 - 450 K/uL [facility] MCV 93.4 80.0 - 100.0 fL [facility] MCH 32.3(H) 27.0 - 31.0 pg [facility] MCHC 34.6 32.0 - 36.0 g/dL [facility] RDW 12.9 11.5 - 14.5 % [facility] MPV 10.0 8.4 - 12.0 fL [facility] NRBC 0.00 0.00 /100 WBCs [facility] ABSOLUTE NRBC 0.00 0.00 K/uL [facility] DIFF METHOD Auto [facility] NEUTS 62.2 48.0 - 76.0 % [facility] LYMPHS 28.5 18.0 - 41.0 % [facility] MONOS 4.7 4.0 - 11.0 % [facility] EOS 3.2 0.0 - 5.0 % [facility] BASOS 0.9 0.0 - 1.5 % [facility] % IMMATURE GRANS 0.5 0.0 - 0.9 % [facility] ABSOLUTE NEUTS 5.42 1.92 - 7.60 K/uL [facility] ABSOLUTE LYMPHS 2.48 0.72 - 4.10 K/uL [facility] ABSOLUTE MONOS 0.41 0.16 - 1.10 K/uL [facility] ABSOLUTE EOS 0.28 0.00 - 0.50 K/uL [facility] ABSOLUTE BASOS 0.08 0.00 - 0.15 K/uL [facility] ABS IMMATURE GRANS 0.04 0.00 - 0.09 K/uL [facility] Blood 10/13/2024 1:11 PM EDT 10/13/2024 1:36 PM EDT us Cesilia Navarrete CNP LAB BLOOD ORDERABLES Final Result [facility] [address] [place] [address] * (ABNORMAL) Basic metabolic panel (10/13/2024 1:11 PM EDT) Only the most recent of5 resultswithin the time period is included. SODIUM 132(L) 135 - 145 mmol/L [facility] POTASSIUM 4.6 3.4 - 5.0 mmol/L [facility] CHLORIDE 97(L) 98 - 108 mmol/L [facility] CO2 26 23 - 32 mmol/L [facility] BUN 11 8 - 25 mg/dL [facility] [facility] CREAT[facility]INE 0.88 0.50 - 1.00 mg/dL [facility] GLUCOSE 377(H) 70 - 110 mg/dL [facility] CALCIUM 8.2(L) 8.5 - 10.5 mg/dL [facility] EGFR 82 >59 mL/min/1. 73m2 [facility] Comment:Estimated glomerular filtration rate calculated using the CKD-EPI refit equation. ANION GAP 9 3 - 17 mmol/L [facility] Blood 10/13/2024 1:11 PM EDT 10/13/2024 1:36 PM EDT us Cesilia Navarrete PATTERNMAKER SAMPLE LAB BLOOD ORDERABLES Final Result [facility] [address] [place] [address] * ECG 12-LEAD (10/13/2024 12:55 PM EDT) Systolic Blood Pressure [facility] Diastolic Blood Pressure [facility] Ventricular Rate EKG/MIN 73 BPM [facility] Atrial Rate 73 BPM [facility] LA Interval 134 ms [facility] QRS Duration 76 ms [facility] QT Interval 418 ms [facility] QTC Interval 460 ms [facility] P [place] 46 degrees [facility] R Wave [place] -38 degrees [facility] T Wave [place] 24 degrees [facility] 10/13/2024 12:5 5 PM EDT 10/15/2024 9:33 AM EDT Narrative [facility] - 10/15/2024 9:33 AM EDT LOC: ED DX: DRUG MONITORING REF: Gregg NAVARRETE NORMAL SINUS RHYTHM PROBABLY LEFT ANTERIOR FASCICULAR BLOCK POOR R WAVE PROGRESSION MINOR NONSPECIFIC ST SEGMENT AND T WAVE ABNORMALITIES WHEN COMPARED WITH ECG OF 24-Jul-2024 11:21, NO SIGNIFICANT CHANGE WAS FOUND Electronically Signed in [employer] system. Confirmed by Florentin CAMARGO JACOB ([id number]) on 10/15/2024 9:33:48 AM Cesilia Navarrete PATTERNMAKER SAMPLE ECG ORDERABLES Final Resul t Performing Organization Address [facility] Co de Phone Number [facility] * Ketone bodies, serum (10/09/2024 10:13 AM EDT) Only the most recent of2 resultswithin the time period is included. BETA HYDROXYBUTYRATE <0.1 <0.4 mmol/L [facility] Blood 10/09/2024 10:1 3 AM EDT 10/09/2024 10:30 AM EDT Efraín Watts PA-C LAB BLOOD ORDERABLES Final Result Performing Organization Address [facility] Co de Phone Number [address] [address] * Toxicology screen, urine (10/08/2024 7:49 PM EDT) URINE AMPHETAMINES Negative Negative [facility] URINE BENZODIAZEPINE Negative Negative [facility] URINE COCAINE METAB Negative Negative [facility] URINE OPIATES Negative Negative [facility] Comment:This assay is not se nsitive for detection of oxycodone and oxymorphone. URINE OXYCODONE Negative Negative [facility] Fentanyl, urine Negative Negative [facility] URINE CREATININE 24 mg/dL [facility] Urine (Urine) 10/08/2024 7:4 9 PM EDT 10/08/2024 8:20 PM EDT Liseth Lester PA-C URINE ORDERABLES Final Resul t Performing Organization Address [facility] Co de Phone Number [address] [address] * HCG, urine (10/08/2024 7:49 PM EDT) URINE TEST Negative Negative [facility] Urine (Urine) 10/08/2024 7:4 9 PM EDT 10/08/2024 8:20 PM EDT Liseth STATON-Autumn URINE ORDERABLES Final Resul t Performing Organization Address [facility] Co de Phone Number [address] [address] * Ethanol, blood (10/08/2024 5:56 PM EDT) ETHANOL Negative Negative mg/dL [facility] Blood 10/08/2024 5:56 PM EDT 10/08/2024 6:09 PM EDT Liseth STATON-C LAB BLOOD ORDERABLES Final R esult Performing Organization Address [facility] de Phone Number [address] [address] * LFTs (hepatic panel) (10/08/2024 5:56 PM EDT) Pathologist [facility] ALBUMIN 3.9 3.3 - 5.0 g/dL [facility] TOTAL BILIRUBIN 0.7 0.0 - 1.0 mg/dL [facility] DIRECT BILIRUBIN 0.3 0.0 - 0.3 mg/dL [facility] ALKALINE PHOSPHATASE 49 30 - 100 U/L [facility] AST 14 9 - 32 U/L [facility] ALT 12 7 - 33 U/L [facility] TOTAL PROTEIN 6.3 6.0 - 8.3 g/dL [facility] GLOBULIN 2.4 1.9 - 4.1 g/dL [facility] Blood 10/08/2024 5:56 PM EDT 10/08/2024 6:08 PM EDT Liseth STATON-Autumn LAB BLOOD ORDERABLES Final R esult Performing Organization Address City/[facility] Co de Phone Number [address] [address] * 25-OH vitamin D (10/04/2024 4:30 PM EDT) Only the most recent of2 resultswithin the time period is included. 25 OH VIT D (TOTAL) 39 20 - 80 ng/mL [facility] Comment: REFERENCE RANGE: Optimal: 25-80 Suboptimal: 20-24 Deficient: <20 At risk for toxicity: >80 Blood 10/04/2024 4:30 PM EDT 10/04/2024 7:48 PM EDT us Manda Dorantes MD, MPH LAB BLOOD [place]AB[place] [address], [facility] [phone] * TSH with reflex (10/04/2024 4:29 PM EDT) SCREENING PANEL: TSH 2.19 0.34 - 5.00 uIU/mL [facility] Blood 10/04/2024 4:29 PM EDT 10/04/2024 7:48 PM EDT us Jeremias [place] MD LAB BLOOD ORDERABLES Final Resul t Performing Organization Address City/[facility]/[place] [address], [facility] [phone] * T3, Total (10/04/2024 4:29 PM EDT) TOTAL T3 91 80 - 200 ng/dL [facility] Blood 10/04/2024 4:29 PM EDT 10/04/2024 7:48 PM EDT us Jeremias [place] MD LAB BLOOD [place] [address], [facility] [phone] * Free T4 (10/04/2024 4:29 PM EDT) FREE T4 1.2 0.9 - 1.9 ng/dL [facility] Blood 10/04/2024 4:29 PM EDT 10/04/2024 7:48 PM EDT us Jeremias [place] MD LAB BLOOD ORDERABLES Final Resul t [address] [address] [phone] * (ABNORMAL) Parathyroid hormone (PTH) (08/21/2024 6:26 AM EDT) PARATHYROID HORMONE 72(H) 10 - 60 pg/mL [facility] 08/21/2024 6:26 AM EDT 08/21/2024 9:03 AM EDT us Sammy Groves MD LAB BLOOD ORDERABLES Final Re sult [address] [address] * (ABNORMAL) Hemoglobin A1c (08/21/2024 6:26 AM EDT) HEMOGLOBIN A1C 7.0(H) 4.3 - 5.6 % [facility] Comment:HbA1c levels 5.7-6.4 % represent pre-diabetes, indicating impaired glucose control and an increased risk of developing diabetes compared with lower HbA1c levels. The diagnostic HbA1c level for diabetes is 6.5% or greater. CALC MEAN BLD GLUC 154 mg/dL [facility] Comment:There is no establis [facility] normal range for the Calculated Mean Blood Glucose (CMBG), however a HbA1c of 5.6% (upper limit of normal) represents a CMBG of 114 mg/dL. The diagnostic hemoglobin A1c level for diabetes is greater than or equal to 6.5% which represents a CMBG greater than or equal to 140 mg/dL. 08/21/2024 6:26 AM EDT 08/21/2024 9:03 AM EDT us Sammy Groves MD LAB BLOOD ORDERABLES Final Re sult Performing Organization Address City/[facility]/ZIP Co de Phone Number [address] [address] * CPK (creatine kinase) (08/21/2024 6:26 AM EDT) CREATINE KINASE 85 40 - 150 U/L [facility] 08/21/2024 6:26 AM EDT 08/21/2024 9:03 AM EDT Tanvi English MD, Tona LAB BLOOD ORDERABL ES Final Result Performing Organization Address [facility] Co de Phone Number [address] [address] * (ABNORMAL) Lipid panel (08/21/2024 6:26 AM EDT) HDL 83 35 - 100 mg/dL [facility] CHOLESTEROL 128 <200 mg/dL [facility] TRIGLYCERIDES 49 40 - 150 mg/dL [facility] LDL 35(L) 50 - 129 mg/dL [facility] CARDIAC RISK RATIO 1.5 0.0 - 5.0 [facility] NON-HDL CHOLESTEROL 45 mg/dL [facility] Comment:Guidelines suggest a non-HDL cholesterol goal 30 mg/dL higher than the patient-specific LDL goal. 08/21/2024 6:26 AM EDT 08/21/2024 9:03 AM EDT Tanvi English MD, Tona LAB BLOOD ORDERABL ES Final Result Performing Organization Address City/[facility] Co de Phone Number [address] [address] * Microalbumin/creatinine ratio, random urine (12/21/2023 6:44 AM EST) URINE MICROALBUMIN 0.6 0.0 - 2.0 mg/dL [facility] URINE CREATININE 145 mg/dL [facility] MICROALB/CRE RATIO 4.1 <30.0 mg/g Cre [facility] Urine 12/21/2023 6:44 AM EST 12/21/2023 7:51 AM EST us Raoul Nogueira MD URINE ORDERABLES Final Result [facility] [address] [place] [address] * BI MAMMOGRAM SCREENING WITH TOMOSYNTHESIS WITH [...] SEE NARRATIVE - 01/24/2020 6:37 [place] [address] ENTERTAINMENT REPORTER Cytology Report Patient Name: RAMSES SRIVASTAVA : 1975 (Age: 44) Sex: F Institution: [facility] Location: [place] [address] Date of Collection: 01/02/2020 Date of Reported: 01/24/2020 06:37 Results to: Dipika Cantu MD FINAL DIAGNOSIS A. CERVICAL, LIQUID BASED SPECIMEN: SPECIMEN ADEQUACY: Satisfactory for evaluation. INTERPRETATION: NEGATIVE FOR INTRAEPITHELIAL LESION OR MALIGNANCY. ADDITIONAL INFORMATION: This specimen was prescreened using the T[employer] Filter Imaging System. Electronically Signed Out By: ELVIS [...] 52, 56, 58, 59, 66, 68) by Kurt [place] Onclarity HR-HPV analysis. Clinical correlation is advised. This HPV test was performed at [facility], [address] [place] [address]. This test has been FDA approved for SurePath cervical cytology specimens. The accuracy and precision of this test for all other specimen sources has been verified in the Cytopathology Laboratory of the [facility] and has not been cleared or approved by the U.S. Food and Drug Administration. Clinical correlation is advised. CLINICAL HISTORY Date of Last Menstrual Period: 12/18/2019 SPECIMEN SOURCE A: CERVICAL, LIQUID BASED SPECIMEN us Dipika Avila MD CYTOLOGY ORDERABLES Final Resul t SEE NARRATIVE * Hepatitis C antibody, qualitative (10/18/2018 7:22 AM EDT) HCV ANTIBODY Negative Negative [facility] Comment:Antibodies to HCV no t detected. Does not exclude the possibility of exposure to HCV. 10/18/2018 7:22 AM EDT 10/18/2018 8:43 AM EDT us Manda Dorantes MD, MPH LAB BLOOD ORDERABLES Final Re sult [address] [address] from Last 3 Months or Most Recently Relevant to Health Maintenance Insurance [facility] [employer] [employer]YEES FAMILY EM[employer]YEES FAMILY EM[employer]YEES [employer] [address] [place] [address] [place] [address] [employer] [address] [place] [address] [place] [place] [address] [place] [address] Advance Directives For more information, please contact: [phone] (9AM - 5PM [place], Wednesday-Wednesday) Documents on File Type Date Recorded Patient Business Account Leader Expl anation Healthcare Proxy 12/28/2023 7:14 PM [...] Status Communicated To: Inpatient Attending Care Teams Home Paraprofessional Relationship Specialty Start Date End Date Manda Dorantes MD, MPH [address] [place] [address] [email or web address] PCP - General Internal Medicine 01/01/17 Additional Source Comments The information contained in this document represents components of the legal health record. It is not the complete legal health record.Located Within [facility]
--- OUTSIDE RECORDS SUMMARY | 2024-10-25 03:53 | XMS_ITS | Encounter Summary ---
Author Organization [facility] Address [address] [place] [address] Phone Care Team Providers Care Manager Distribution Center Name Role Phone Manda Dorantes MD, MPH Primary Care Provider [phone] Encounter Details Date Type Department Care Team (Late st Contact Info) Description 10/24/2024 Telephone [facility] Diabetes [facility] [address] [facility] [address] [place] [address] Layne Quan, RN [address] [place] [address] [email or web address] Social History Tobacco Use Types Packs/Day [...] high school, GED, job training, learning the Russian language, technical skills, or developing parenting skills)? [...] as of this encounter Progress Notes * Layne Quan RN - 10/24/2024 12:09 PM EDT Sent message to MD via telephone, MD acknowledged * Layne Quan RN - 10/24/2024 10:07 AM EDT LEYDI Hudson ([phone]) calling from [facility] Admitted on 10/14, no Endo team on site to consult with. Floor that she is on she can not have her pump and CGM Having a difficult time managing BG with MDI Currently undergoing ECT treatment Looking for a call back to discuss BG management. Will review with SANITIZER Team documented in this encounter Plan of Treatment Upcoming Encounters Date Type Department Care Team (Late st Contact Info) Description 11/07/2024 9:00 AM EDT Telemedicine [address], [address] [place] [address] Jeremias [place] MD [address] [place] [address] 8 [place] [address] [email or web address] 12/13/2024 8:30 AM EDT Telemedicine [facility] Weight Center [address] [facility] [facility] [address] [place] [address] Smamy Groves MD [address] [facility], 4th [address] [place] [address] [email or web address] 12/22/2024 8:00 AM EST Appointment [facility] Nuclear Medicine [address] [place] [address] Tanvi English MD, DrPH [address] [place] [address] [address] [place] [address] [email or web address] 01/08/2025 12:35 PM EST Office Visit [facility] Diabetes [facility] [address] [place] [address] Timbo Calle MD [address] [place] [address] [email or web address] documented as of this encounter Visit Diagnoses Not on filedocumented in this encounter Additional Health Concerns Assessment Noted Time PHQ-9 Depression Total Score: 0 08/27/19 23 7:30 AM EDT PHQ-2 Depression Total Score: 0 02/13/20 24 4:51 PM EST documented as of this encounter Care Teams Manager Distribution Center Relationship Specialty Start Date End Date Manda Dorantes MD, MPH [address] [place] [address] [email or web address] PCP - General Internal Medicine 01/01/17 documented as of this encounter Additional Source Comments The information contained in this document represents components of the legal health record. It is not the complete legal health record.[facility]
--- OUTSIDE RECORDS SUMMARY | 2024-10-25 03:53 | XMS_ITS | Encounter Summary ---
Author Organization [facility] Address [address] [place] [address] Phone Care Team Providers Care Grated Cheese Maker Name Role Phone Manda Dorantes MD, MPH Primary Care Provider Encounter Details Date Type Department Care Team ([facility] st Contact Info) Description 10/24/2024 Telephone [facility] DIABETES IP FUND [address] [place] [address] Timbo Calle MD [address] [facility] [address] [place] [address] [email or web address] Social History Tobacco Use Types Packs/Day Years [...] high school, GED, job training, learning the Fijian language, technical skills, or developing parenting skills)? [...] as of this encounter Progress Notes * Timbo Calle MD - 10/24/2024 1:33 PM EDT Spoke with Tristan HOLLEY regarding inpatient blood glucose management. Cannot use pump and carbohydrate counting while on the inpatient psych floor. Will initiate Lantus 18 units nightly, 6 units with meals, 3 units with snack and 3 units after ECT. Target BG of 250 to minimize hypoglycemia. Discontinuesliding scale due to glucose variability. Medical team acknowledged recommendations. documented in this encounter Plan of Treatment Upcoming Encounters Date Type Department Care Team (Late st Contact Info) Description 11/07/2024 9:00 AM EDT Telemedicine [facility] [address] [facility], [address] [place] [address] Jeremias [place] MD [address] [place] [address] 8 [place] [address] [email or web address] 12/13/2024 8:30 AM EDT Telemedicine [facility] Weight [facility] [address] [facility] [address] [place] [address] Sammy Groves MD [address] [facility], 4th [address] [place] [address] [email or web address] 12/22/2024 8:00 AM EST Appointment [facility] Nuclear Medicine [address] [place] [address] Tanvi English MD, DrPH [address] [place] [address] [address] [place] [address] [email or web address] 01/08/2025 12:35 PM EST Office Visit [facility] [address] [facility] [address] [place] [address] Timbo Calle MD [address] [place] [address] [address] [place] [address] [email or web address] documented as of this encounter Visit Diagnoses Not on filedocumented in this encounter Additional Health Concerns Assessment Noted Time PHQ-9 Depression Total Score: 0 08/27/19 23 7:30 AM EDT PHQ-2 Depression Total Score: 0 02/13/20 24 4:51 PM EST documented as of this encounter Care Teams Grated Cheese Maker Relationship Specialty Start Date End Date Manda Dorantes MD, MPH [address] [place] [address] [email or web address] PCP - General Internal Medicine 01/01/17 documented as of this encounter Additional Source Comments The information contained in this document represents components of the legal health record. It is not the complete legal health record.[facility]
--- OUTSIDE RECORDS SUMMARY | 2024-10-25 03:53 | XMS_ITS | Encounter Summary ---
Author Organization [facility] Address [address] [place] [address] Phone Care Team Providers Care Production Maintenance Technician Name Role Phone Manda Dorantes MD, MPH Primary Care Provider Manda Dorantes MD, MPH Unavailable [phone] Raoul Nogueira MD Unavailable [phone] Raoul Nogueira MD Unavailable [phone] Raoul Nogueira MD Unavailable [phone] Reason for Referral * - Closed Specialty Diagnoses / Procedures Referred By Contdiego t Referred To Contact Radiology Diagnoses Abnormal mammogram Procedures US Breast (Right) Manda Dorantes MD, MPH Phone: tel: fax: mailto:[email or web address] Referral ID Status Reason Start Date Expiration Date Visits Re quested Visits Authorized [id number] Closed 05/15/2020 05/15/2021 1 1 Encounter Details Date Type Department Care Team ([facility] st Contact Info) Description 05/15/2020 Ancillary Orders [facility] [address] [facility], [address] [place] [address] Manda Dorantes MD, MPH [address] [place] [address] [email or web address] Abnormal mammogram Social History Tobacco Use [...] GED, job training, learning the [place] language, technical skills, or developing parenting skills)? [...] Description 11/07/2024 9:00 AM EDT Telemedicine [facility] [address] [facility], [address] [place] [address] Jeremias [place] MD [address] [address] [email or web address] 12/13/2024 8:30 AM EDT Telemedicine [facility] Weight [facility] [address] [place] [address] Sammy Groves MD [address] [facility], 4th [address] [place] [address] [email or web address] 12/22/2024 8:00 AM EST Appointment [facility] Nuclear Medicine [address] [place] [address] Tanvi English MD, DrPH [address] [facility] [address] [place] [address] [email or web address] 01/08/2025 12:35 PM EST Office Visit [facility] [address] [place] [address] Timbo Calle MD [address] [facility] [address] [place] [address] [email or web address] documented as of this encounter Results * [...] examination. us Manda Dorantes MD, MPH IMG MG [...] documented as of this encounter Care Teams Production Maintenance Technician Relationship Specialty Start Date End Date Manda Dorantes MD, MPH [address] [place] [address] [email or web address] PCP - General Internal Medicine 01/01/17 Manda Dorantes MD, MPH [address] [place] [address] [email or web address] Partners Attributed Provider 03/13/17 06/24/23 Raoul Nogueira MD [address] [place] [address] [email or web address] Insurance Assigned Provider 11/23/20 12/21/20 Raoul Nogueira MD [address] [place] [address] Insurance Assigned Provider 01/31/21 04/25/22 Raoul Nogueira MD [address] [place] [address] [email or web address] Insurance Assigned Provider 05/23/22 06/20/22 documented as of this encounter Additional Source Comments The information contained in this document represents components of the legal health record. It is not the complete legal health record.[facility]
--- OUTSIDE RECORDS SUMMARY | 2024-10-25 03:53 | XMS_ITS | Encounter Summary ---
Author Organization [facility] Address [address] [place] [address] Phone Care Team Providers Care Junior Sales Assistant Name Role Phone Manda Dorantes MD, MPH Primary Care Provider [phone] Manda Dorantes MD, MPH Unavailable [phone] Raoul Nogueira MD Unavailable [phone] Raoul Nogueira MD Unavailable [phone] Raoul Nogueira MD Unavailable [phone] Encounter Details Date Type Department Care Team (Late st Contact Info) Description 05/15/2020 Procedure Pass [facility] Breast [facility] [address] [place] [address] Social History Tobacco Use Types Packs/Day Years [...] high school, GED, job training, learning the Gabonese language, technical skills, or developing parenting skills)? [...] Info) Description 11/07/2024 9:00 AM EDT Telemedicine [facility] [address] [place] [address] Jeremias Lawrence MD [address] [place] [id number] [email or web address] 12/13/2024 8:30 AM EDT Telemedicine [facility] Weight Center [address] [place] [address] Sammy Groves MD [address] 4th [address] [place] [address] [email or web address] 12/22/2024 8:00 AM EST Appointment [facility] Nuclear Medicine [address] [place] [phone] Tanvi English MD, DrPH [address] [facility] [address] [place] [address] [email or web address] 01/08/2025 12:35 PM EST Office Visit [facility] Diabetes Center [address] [facility] [address] [place] [address] Timbo Calle MD [address] [place], [place] [id number] [place] [address] [email or web address] documented as of this encounter Visit Diagnoses [...] documented as of this encounter Care Teams Junior Sales Assistant Relationship Specialty Start Date End Date Manda Dorantes MD, MPH 15 [place] [address] [email or web address] - General Internal Medicine 01/01/17 Manda Dorantes MD, MPH [address] [place] [id number] [email or web address] Attributed Provider 03/13/17 06/24/23 Raoul Nogueira MD [address] [place] [phone] [email or web address] Insurance Assigned Provider 11/23/20 12/21/20 Raoul Nogueira MD [address] [place] [phone] [email or web address] Insurance Assigned Provider 01/31/21 04/25/22 Raoul Nogueira MD [address] [place] [phone] [email or web address] Insurance Assigned Provider 05/23/22 06/20/22 documented as of this encounter Additional Source Comments The information contained in this document represents components of the legal health record. It is not the complete legal health record.[facility]
[2024-10-25 06:54] LABS: MANUAL DIFF FLAG NO
[2024-10-25 06:56] LABS: Hematocrit 32.6 % (37.0-47.0); Hemoglobin 11.3 g/dl (12.0-16.0); Imm Gran Abs Auto 0.03 X10*3/uL (0.00-0.03); Imm Gran Pct Auto 0.3 % (0.0-0.4); Lymphocytes Absolute Auto 2.1 X10*3/uL (1.2-4.9); Mean Corpuscular HGB Conc 34.7 g/dl (31.0-35.0); Mean Corpuscular Hemoglobin 32.3 pg (27.0-33.0); Mean Corpuscular Volume 93.1 fL (80.0-98.0); NRBC Abs Auto 0.000 X10*3/uL (0.0-0.012); NRBC Pct Auto 0.0 /100WBC (0.0-0.2); Platelet Count 164 X10*3/uL (160-400); Red Blood Count 3.50 X10*6/uL (4.20-5.50); White Blood Count 8.7 X10*3/uL (4.8-10.8)
[2024-10-25 07:10] LABS: Glucose, Whole Blood 141 mg/dL (60-115)
[2024-10-25 07:13] LABS: Anion Gap 12 (12-20); Blood Urea Nitrogen 14 mg/dL (9-16); Calcium 8.0 mg/dL (8.4-10.2); Carbon Dioxide 27 mmol/L (22-29); Chloride 108 mmol/L (96-108); Estimated Glomerular Filt Rate > 60; Potassium 3.7 mmol/L (3.3-5.1); Sodium 143 mmol/L (135-145)
[2024-10-25 07:31] VITALS: BP 129/61; PULSE 69; RESP 16; TEMP 36.4; O2SAT 99
--- NOTE | 2024-10-25 08:27 | MHC.CM.PN ---
Patient will benefit from a Care Team Consult to assist with disposition (? return to [facility]); CM has initiated and will follow for dc planning. Patient lives with her , who will transport to home at time of final dc and she is functionally independent.
[2024-10-25 11:35] VITALS: BP 133/55; PULSE 66; RESP 16; TEMP 36.2; O2SAT 98
[2024-10-25 11:35] LABS: Glucose, Whole Blood 487 mg/dL (60-115)
--- NOTE | 2024-10-25 13:25 | PHA.MEDREC ---
Pharmacy Consult ? Medication Reconciliation Pharmacy has completed the medication reconciliation. Patient was transferred from [id number], used med list from .
--- NOTE | 2024-10-25 14:16 | PM.EVENT ---
Event Note Date of Service: 10/25/24 Event Note: 49-year-old female with a past medical history of type 1 diabetes, major depressive disorder, Suicide attempts times two requiring hospitalizations last in 2023, [facility], Hypothyroidism, GERD, PTSD, CAD, status post PR in 2018 with 2 drug-eluting stents in LAD, ischemic cardiomyopathy history of gastric bypass surgery, iron deficiency anemia admitted to for treatment of MDD, and PTSD, transferred from adult Psychiatry due to episode of severe hypoglycemia. Hypoglycemia pt received too much insulin, 11U tltal from 21:31 to 23:54 with subsequent lethargy unable to take PO glucose IV placed on psych floor and pt given 1amp of dextrose with response transfered to [facility] tele T1DM Case discussed with Jassi in [place] (as per Lyly Diaz PRINTING PRESS MACHINE OPERATOR) Plan is to continue lantus 18 units daily but split into 2 doses, 5 units meal time insulin Hypoxia. Resolved pt O2sat during rapid response was 91 neg CXR O2 sat improved now mood psych consult continue psych meds: Hydroxyzine, lorazepam, trazodone, fluoxetine Hypothyroid continue levothyroxine CAD/s/p PR with 2 drug-eluting stents continue aspirin follows with Cardiology at [facility] Full code VTE prophylaxis: Lovenox Time Spent With Patient Time: Total time managing care of this patient today ____ minutes.
[2024-10-25 14:53] LABS: Glucose, Whole Blood 344 mg/dL (60-115)
--- NOTE | 2024-10-25 14:58 | PC.NURSE ---
POC is 344 at 1500, no new or additional orders needed and recheck at 1630, this information was passed on to RN taking over my assisgnment
[2024-10-25 16:00] VITALS: BP 115/81; PULSE 72; RESP 18; TEMP 36.6; O2SAT 98
[2024-10-25] MEDS: 0.9 % Sodium Chloride Flush 3 ML SYRINGE IVFLUSH (16:47)
[2024-10-25 19:26] VITALS: BP 118/66; PULSE 76; RESP 20; TEMP 36.4; O2SAT 96
--- NOTE | 2024-10-25 19:31 | PC.NURSE ---
Patient asked for belongings, charge accounts audit clerk on M5 contacted, per charge accounts audit clerk the belongings are on M5 in the storage. Request for the belongings sent to charge accounts audit clerk, no response received. Report given to oncoming RN to follow up on patients request for belongings. Patient also stated she dose not want to go back to [facility]
[2024-10-25 20:07] LABS: Glucose, Whole Blood 87 mg/dL (60-115)
[2024-10-25 23:50] VITALS: BP 122/61; PULSE 68; RESP 20; TEMP 36.4; O2SAT 97
[2024-10-26 00:25] LABS: Glucose, Whole Blood 182 mg/dL (60-115)
[2024-10-26] MEDS: Lactated Ringers 1,000 ML 100 ML IVCONT (02:00)
[2024-10-26 04:00] VITALS: BP 109/60; PULSE 67; RESP 20; TEMP 36.4; O2SAT 93
[2024-10-26 04:39] LABS: Glucose, Whole Blood 399 mg/dL (60-115)
[2024-10-26 05:39] LABS: MANUAL DIFF FLAG NO
[2024-10-26 05:42] LABS: Hematocrit 30.4 % (37.0-47.0); Hemoglobin 10.2 g/dl (12.0-16.0); Imm Gran Abs Auto 0.02 X10*3/uL (0.00-0.03); Imm Gran Pct Auto 0.3 % (0.0-0.4); Lymphocytes Absolute Auto 2.5 X10*3/uL (1.2-4.9); Mean Corpuscular HGB Conc 33.6 g/dl (31.0-35.0); Mean Corpuscular Hemoglobin 31.9 pg (27.0-33.0); Mean Corpuscular Volume 95.0 fL (80.0-98.0); NRBC Abs Auto 0.000 X10*3/uL (0.0-0.012); NRBC Pct Auto 0.0 /100WBC (0.0-0.2); Platelet Count 151 X10*3/uL (160-400); Red Blood Count 3.20 X10*6/uL (4.20-5.50); White Blood Count 6.8 X10*3/uL (4.8-10.8)
[2024-10-26 06:23] LABS: Anion Gap 9 (12-20); Blood Urea Nitrogen 15 mg/dL (9-16); Calcium 7.7 mg/dL (8.4-10.2); Carbon Dioxide 24 mmol/L (22-29); Chloride 103 mmol/L (96-108); Estimated Glomerular Filt Rate > 60; Potassium 4.4 mmol/L (3.3-5.1); Sodium 132 mmol/L (135-145)
[2024-10-26 07:10] VITALS: BP 130/62; PULSE 67; RESP 16; TEMP 36.3; O2SAT 97
[2024-10-26 07:32] LABS: Glucose, Whole Blood 353 mg/dL (60-115)
[2024-10-26] MEDS: Insulin Glargine,Hum.rec.anlog 100 UNIT/ML 10 ML VIAL 9 UNIT SUBCUT ×4 (07:50→22:59)
[2024-10-26] MEDS: 0.9 % Sodium Chloride Flush 3 ML SYRINGE IVFLUSH (07:51)
[2024-10-26 11:17] VITALS: BP 127/64; PULSE 69; RESP 16; TEMP 36.1; O2SAT 98
[2024-10-26 11:31] LABS: Glucose, Whole Blood 241 mg/dL (60-115)
[2024-10-26 15:23] VITALS: BP 107/55; PULSE 81; RESP 16; TEMP 36.6; O2SAT 97
[2024-10-26 16:12] LABS: Glucose, Whole Blood 240 mg/dL (60-115)
--- NOTE | 2024-10-26 16:47 | P.CNPS_ITS ---
History of Present Illness Date of Service: 10/26/24 Chief Complaint: hypoglycemia Reason for Consult: Follow up Requesting physician: Erlin Leon Discussed with referring provider: Yes (text) Sources of Information: patient interviewed, chart reviewed and crisis/core team assessment reviewed HPI Narrative: 49 yo female, history of PTSD, Recurrent Major Depression, DMI which is very fragile, admitted to 10/14 - 10/25 when she was transferred to medicine due to labile blood glucose values with extreme values needing mgt. Pt had her first ECT treatment on 10/23/24, however, ECT has been held since. Prior to transfer pt had requested to return to her home hospital, [facility], for ongoing in pt ECT where she has been admitted before for both in pt and out pt ECT. This was being worked on at the time of transfer. Pt was seen on 10/25/24 and this process for transfer was completed where pt signed RICHARD for the ECT clinic at [facility] and allowed records to be sent, which were sent on 10/25 and today. Today, request to see pt as she is struggling with being on a one to one, agitation, wanting some belongings. She reports she is comfortable on medicine, she verbalized understanding of why she has a one to one, with the one to one present, and we discussed obtaining some belongings. By history, she has had SI, she has had attempts in hospital with her insulin pump and although we are aware she is able to contract now, this history deserves consideration for her protection. She reports she is comfortable with whatever plan we have in place, that being discharge to home to complete ECT, transfer to (only if there is a private room) to continue ECT, or transfer to [facility]. She reports feeling improved, she denies SI,HI,AH, VH and is non agitated when we meet. We reviewed that we re-sent info to [facility] (needed for OP follow up and/or if she is accepted for in pt care there). Discussed with pt that tw was told ECT beds are tight and she may need to wait or consider OP ECT which she is willing to do. Care discussed with Dr. Vasquez and with nursing team of unit 4, along with Isaiah Obrien APRN and CARE Team. Care team will meet with pt this afternoon for level of care. Past Psychiatric History: hx of multiple inpatient psychiatric hospitalizations hx of 2 SA via OD on medications and overuse of insulin. Outpatient prescriber: Dr. Lawrence ([facility]) Therapist: Litzy ([facility]) hx of SIB via head banging. hx of receiving ECT. Medical Evaluation Reviewed: Yes Review of Systems Review of Systems Pt reports feeling well this afternoon. [facility] Medical History Suicidal ideation Anxiety Depression MDD (major depressive disorder), recurrent, severe, with psychosis PTSD (post-traumatic stress disorder) Type 1 diabetes History of myocardial infarction Family History: Lives with . no kids. 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 Some college. Positive history of suicide attempts on her father's side Social History: Father: depression Mother: anxiety Trauma History: yes Diagnostics Vital Signs (24Hr): Vital Signs - 24 hr 10/25/24 19:26 10/25/24 23:50 10/26/24 04:00 Temperature 97.5 F 97.5 F 97.5 F Pulse Rate 76 68 67 Respiratory Rate 20 20 20 Blood Pressure 118/66 122/61 109/60 Pulse Oximetry 96 97 93 Oxygen Delivery Method Room Air Room Air Room Air 10/26/24 07:10 10/26/24 11:17 10/26/24 15:23 Temperature 97.3 F 97.0 F 97.8 F Pulse Rate 67 69 81 Respiratory Rate 16 16 16 Blood Pressure 130/62 127/64 107/55 L Pulse Oximetry 97 98 97 Oxygen Delivery Method Room Air Room Air Room Air Labs 10/26/24 05:17 10/26/24 05:17 Labs: Laboratory Results - last 48 hr 10/25/24 10/25/24 10/25/24 06:47 07:06 11:31 WBC 8.7 RBC 3.50 L Hgb 11.3 L Hct 32.6 L MCV 93.1 MCH 32.3 MCHC 34.7 RDW 13.2 Plt Count 164 MPV 10.1 Immature Gran % (Auto) 0.3 Neut % (Auto) 65.4 Lymph % (Auto) 24.5 Charles % (Auto) 5.3 Eos % (Auto) 3.8 Baso % (Auto) 0.7 Lymph # (Auto) 2.1 Charles # (Auto) 0.5 Eos # (Auto) 0.3 Baso # (Auto) 0.1 Abs Immat Gran (auto) 0.03 Absolute Neuts (auto) 5.7 Absolute Nucleated RBC 0.000 Nucleated RBC % (auto) 0.0 Sodium 143 Potassium 3.7 Chloride 108 Carbon Dioxide 27 Anion Gap 12 BUN 14 Creatinine 0.67 Estim Creat Clear Calc TNP Estimated GFR > 60 POC Glucose 141 H 487 H* Random Glucose 153 H Calcium 8.0 L 10/25/24 10/25/24 10/25/24 14:48 19:58 23:52 WBC RBC Hgb Hct MCV MCH MCHC RDW Plt Count MPV Immature Gran % (Auto) Neut % (Auto) Lymph % (Auto) Charles % (Auto) Eos % (Auto) Baso % (Auto) Lymph # (Auto) Charles # (Auto) Eos # (Auto) Baso # (Auto) Abs Immat Gran (auto) Absolute Neuts (auto) Absolute Nucleated RBC Nucleated RBC % (auto) Sodium Potassium Chloride Carbon Dioxide Anion Gap BUN Creatinine Estim Creat Clear Calc Estimated GFR POC Glucose 344 H 87 182 H Random Glucose Calcium 10/26/24 10/26/24 10/26/24 04:34 05:17 07:24 WBC 6.8 RBC 3.20 L Hgb 10.2 L Hct 30.4 L MCV 95.0 MCH 31.9 MCHC 33.6 RDW 12.9 Plt Count 151 L MPV 10.8 Immature Gran % (Auto) 0.3 Neut % (Auto) 51.1 Lymph % (Auto) 37.3 Charles % (Auto) 6.3 Eos % (Auto) 4.3 H Baso % (Auto) 0.7 Lymph # (Auto) 2.5 Charles # (Auto) 0.4 Eos # (Auto) 0.3 Baso # (Auto) 0.1 Abs Immat Gran (auto) 0.02 Absolute Neuts (auto) 3.5 Absolute Nucleated RBC 0.000 Nucleated RBC % (auto) 0.0 Sodium 132 L Potassium 4.4 Chloride 103 Carbon Dioxide 24 Anion Gap 9 L BUN 15 Creatinine 0.90 Estim Creat Clear Calc TNP Estimated GFR > 60 POC Glucose 399 H* 353 H* Random Glucose 443 H* Calcium 7.7 L 10/26/24 10/26/24 11:26 16:07 WBC RBC Hgb Hct MCV MCH MCHC RDW Plt Count MPV Immature Gran % (Auto) Neut % (Auto) Lymph % (Auto) Charles % (Auto) Eos % (Auto) Baso % (Auto) Lymph # (Auto) Charles # (Auto) Eos # (Auto) Baso # (Auto) Abs Immat Gran (auto) Absolute Neuts (auto) Absolute Nucleated RBC Nucleated RBC % (auto) Sodium Potassium Chloride Carbon Dioxide Anion Gap BUN Creatinine Estim Creat Clear Calc Estimated GFR POC Glucose 241 H 240 H Random Glucose Calcium Mental Status Exam Mental Status Exam Patient Appearance: Appropriate Patient Orientation: Person, Place, Time and Situation Level of Consciousness: Alert Patient Behavior: Appropriate, Talkative and Cooperative Mood Description: Constricted Affect Description: Constricted Patient Cognition Impaired: No Ability to Follow Directions: Good Speech Pattern: Spontaneous Speech Memory Description: Episodic Impaired Hallucinations: None Delusions: Not Present Thought Process: Distracted Thought Content: positive for Circumstantial, positive for Perseveration and positive for Suicidal Ideation (denies) Judgement: Fair Medications Medications Current Medications Acetaminophen (Acetaminophen 325 Mg Tablet) 975 mg PO Q6H PRN PRN Reason: Pain, Mild 1-3,fever,headache Aspirin (Aspirin 81 Mg Tab.Chew) 81 mg PO DAILY [facility] Last Admin: 10/26/24 07:51 Dose: 81 mg Calcium Carbonate (Calcium Carbonate 750 Mg Tab.Chew) 750 mg PO Q4H PRN PRN Reason: Heartburn Capsaicin (Capsaicin 0.025% Cream 60 Gm Tube) 1 appl TOPICAL QID PRN; Protocol PRN Reason: muscle aches Dextrose (Dextrose 50 % 25 Gm/50 Ml Syringe) 25 gm IVPUSH Q15M PRN; Protocol PRN Reason: per Hypoglycemia Standing Ord. Last Admin: 10/25/24 02:30 Dose: 25 gm Enoxaparin Sodium (Enoxaparin Sodium 40 Mg/0.4 Ml Syringe) 40 mg SUBCUT Q24H [facility] Last Admin: 10/26/24 07:52 Dose: 40 mg Fluoxetine HCl (Fluoxetine Hcl 20 Mg Capsule) 40 mg PO DAILY [facility] Last Admin: 10/26/24 07:51 Dose: 40 mg Glucose (Glucose Gel 15 Gm Gel..Gram.) 15 gm PO Q15M PRN; Protocol PRN Reason: per Hypoglycemia Standing Ord. Hydroxyzine HCl (Hydroxyzine Hcl 25 Mg Tablet) 25 mg PO Q6H PRN PRN Reason: mild anxiety Lactated Ringer's (Lr) 1,000 mls @ 100 mls/hr IVCONT .Q10H [facility] Last Admin: 10/26/24 14:31 Dose: Not Given Ibuprofen (Ibuprofen 800 Mg Tablet) 800 mg PO Q8H PRN PRN Reason: Pain, Moderate(Pain Scale 4-6) Insulin Glargine (Insulin Glargine,Hum.Rec.Anlog 100 Unit/Ml 10 Ml Vial) 9 unit SUBCUT DAILY [facility] Last Admin: 10/26/24 07:50 Dose: 9 unit Insulin Glargine (Insulin Glargine,Hum.Rec.Anlog 100 Unit/Ml 10 Ml Vial) 9 unit SUBCUT BEDTIME [facility] Last Admin: 10/25/24 21:00 Dose: Not Given Insulin Human Lispro (Insulin Lispro 100 Unit/Ml 3 Ml Vial) 5 unit SUBCUT QIDACHS [facility] Last Admin: 10/26/24 12:50 Dose: 5 unit Levothyroxine Sodium (Levothyroxine Sodium 150 Mcg Tablet) 150 mcg PO DAILY@0600 [facility] Last Admin: 10/26/24 06:14 Dose: 150 mcg Lorazepam (Lorazepam 0.5 Mg Tablet) 0.5 mg PO DAILY PRN PRN Reason: Moderate anxiety Last Admin: 10/25/24 14:07 Dose: 0.5 mg Magnesium Hydroxide (Milk Of Magnesia 30 Ml Oral.Susp) 30 ml PO DAILY PRN PRN Reason: Constipation Melatonin (Melatonin 3 Mg Tablet) 6 mg PO BEDTIME PRN PRN Reason: Insomnia Nicotine Polacrilex (Nicotine Polacrilex 2 Mg Gum) 4 mg BUCCAL Q2H PRN PRN Reason: Nicotine Cravings Olanzapine (Olanzapine 10 Mg Tablet) 10 mg PO BEDTIME [facility] Last Admin: 10/25/24 22:55 Dose: Not Given Ondansetron HCl (Ondansetron Hcl 4 Mg/2 Ml Vial) 4 mg IVPUSH Q8H PRN PRN Reason: Nausea and Vomiting Simethicone (Simethicone 80 Mg Tab.Chew) 80 mg PO QIDWMHS PRN PRN Reason: flatulence Sodium Chloride (0.9 % Sodium Chloride Flush 3 Ml Syringe) 3 ml IVFLUSH QSHIFT [facility] Last Admin: 10/26/24 07:51 Dose: 3 ml Trazodone HCl (Trazodone Hcl 50 Mg Tablet) 50 mg PO BEDTIME MRX1 PRN PRN Reason: Sleep Trazodone HCl (Trazodone Hcl 50 Mg Tablet) 50 mg PO BEDTIME [facility] Last Admin: 10/25/24 21:05 Dose: 50 mg Allergies Allergies Allergy/AdvReac Type Severity Reaction Status Date / Time Penicillins AdvReac Rash Verified 10/14/24 02:15 Sulfa (Sulfonamide AdvReac Rash Verified 10/14/24 02:15 Antibiotics) Assessment & Plan Assessment & Plan (1) MDD (major depressive disorder), recurrent, severe, with psychosis: Status: Acute Code(s): F33.3 - Major depressive disorder, recurrent, severe with psychotic symptoms (2) PTSD (post-traumatic stress disorder): Status: Acute Code(s): F43.10 - Post-traumatic stress disorder, unspecified Plan Team report pt is not medically cleared at this time. CARE Team assessment requested Today, it is reported mood, MSE with lability- this may be related to blood sugar levels. Intact MSE when we met. Will continue to evaluate. Total time managing care of this patient today ____ minutes. Informed Consent: understands
--- NOTE | 2024-10-26 17:04 | PC.NURSE ---
Pt became very upset at the insinuation that she was admitted for SI and had a 1:1 sitter. After this ghost writer's explanations didn't seem to help, professional nursing assistant contacted. At pt's request, psych MD, neuropsychiatric aide, and hospitalist contacted and made aware of pt's concerns. Pt also expressed a desire to have her possessions. [facility] were [facility] and stored in the [employer] locker. Pt was made aware of current policies regarding SI patients and belongings and that the SI/not-SI issue would need to be resolved before belongings could be made available.
--- NOTE | 2024-10-26 18:31 | MHC.CARE ---
Patient evaluated by the CARE Team and psychiatry, she does not require an inpatient psychiatric admission.
[2024-10-26 19:23] VITALS: BP 125/73; PULSE 78; RESP 20; TEMP 36.8; O2SAT 96
[2024-10-26 19:51] LABS: Glucose, Whole Blood 333 mg/dL (60-115)
--- NOTE | 2024-10-26 20:52 | HO.PM.IMPN ---
Subjective Subjective Date of Service: 10/26/24 Interval History: Hyperglycemic overnight Sugars difficult to control Pt anxious and agitated, [place] No medical complaints Denies SI/HI Review of Systems Review of Systems: Yes all other systems are reviewed and are negative Physical Exam Exam: Exam: General: AOx3, no acute distress. Animated, occasionally agitated Resp: CTA bilaterally CVS: S1, S2, RRR GI: +BS, NT, no distention Skin: Warm, dry Neuro: Cranial nerves II-XII grossly intact bilaterally. Motor grossly intact bilaterally Extremities: No edema Psych: Anxious, agitated, mostly redirectable Vital Signs: Vital Signs: Last Vital Signs Temp 98.2 F 10/26/24 19:23 Pulse 78 10/26/24 19:23 Resp 20 10/26/24 19:23 BP 125/73 10/26/24 19:23 Pulse Ox 96 10/26/24 19:23 O2 Del Method Room Air 10/26/24 19:23 Objective Data Active Medications Acetaminophen (Acetaminophen 325 Mg Tablet) 975 mg PO Q6H PRN PRN Reason: Pain, Mild 1-3,fever,headache Aspirin (Aspirin 81 Mg Tab.Chew) 81 mg PO DAILY [facility] Last Admin: 10/26/24 07:51 Dose: 81 mg Documented By: ROXY Calcium Carbonate (Calcium Carbonate 750 Mg Tab.Chew) 750 mg PO Q4H PRN PRN Reason: Heartburn Capsaicin (Capsaicin 0.025% Cream 60 Gm Tube) 1 appl TOPICAL QID PRN; Protocol PRN Reason: muscle aches Dextrose (Dextrose 50 % 25 Gm/50 Ml Syringe) 25 gm IVPUSH Q15M PRN; Protocol PRN Reason: per Hypoglycemia Standing Ord. Last Admin: 10/25/24 02:30 Dose: 25 gm Documented By: CARLY Enoxaparin Sodium (Enoxaparin Sodium 40 Mg/0.4 Ml Syringe) 40 mg SUBCUT Q24H [facility] Last Admin: 10/26/24 07:52 Dose: 40 mg Documented By: ROXY Fluoxetine HCl (Fluoxetine Hcl 20 Mg Capsule) 40 mg PO DAILY [facility] Last Admin: 10/26/24 07:51 Dose: 40 mg Documented By: ROXY Glucose (Glucose Gel 15 Gm Gel..Gram.) 15 gm PO Q15M PRN; Protocol PRN Reason: per Hypoglycemia Standing Ord. Hydroxyzine HCl (Hydroxyzine Hcl 25 Mg Tablet) 25 mg PO Q6H PRN PRN Reason: mild anxiety Lactated Ringer's (Lr) 1,000 mls @ 100 mls/hr IVCONT .Q10H [facility] Last Admin: 10/26/24 14:31 Dose: Not Given Documented By: ROXY Non-Admin Reason: Patient Refused Ibuprofen (Ibuprofen 800 Mg Tablet) 800 mg PO Q8H PRN PRN Reason: Pain, Moderate(Pain Scale 4-6) Insulin Glargine (Insulin Glargine,Hum.Rec.Anlog 100 Unit/Ml 10 Ml Vial) 9 unit SUBCUT DAILY [facility] Last Admin: 10/26/24 07:50 Dose: 9 unit Documented By: ROXY Insulin Glargine (Insulin Glargine,Hum.Rec.Anlog 100 Unit/Ml 10 Ml Vial) 9 unit SUBCUT BEDTIME [facility] Last Admin: 10/25/24 21:00 Dose: Not Given Documented By: RAMIRO Non-Admin Reason: per Dr. Shelton poc 87 Insulin Human Lispro (Insulin Lispro 100 Unit/Ml 3 Ml Vial) 5 unit SUBCUT QIDACHS [facility] Last Admin: 10/26/24 17:43 Dose: 5 unit Documented By: DOBROB Levothyroxine Sodium (Levothyroxine Sodium 150 Mcg Tablet) 150 mcg PO DAILY@0600 [facility] Last Admin: 10/26/24 06:14 Dose: 150 mcg Documented By: RAMIRO Lorazepam (Lorazepam 0.5 Mg Tablet) 0.5 mg PO DAILY PRN PRN Reason: Moderate anxiety Last Admin: 10/25/24 14:07 Dose: 0.5 mg Documented By: SANDRO Magnesium Hydroxide (Milk Of Magnesia 30 Ml Oral.Susp) 30 ml PO DAILY PRN PRN Reason: Constipation Melatonin (Melatonin 3 Mg Tablet) 6 mg PO BEDTIME PRN PRN Reason: Insomnia Nicotine Polacrilex (Nicotine Polacrilex 2 Mg Gum) 4 mg BUCCAL Q2H PRN PRN Reason: Nicotine Cravings Olanzapine (Olanzapine 10 Mg Tablet) 10 mg PO BEDTIME [facility] Last Admin: 10/25/24 22:55 Dose: Not Given Documented By: RAMIRO Non-Admin Reason: Patient Refused Ondansetron HCl (Ondansetron Hcl 4 Mg/2 Ml Vial) 4 mg IVPUSH Q8H PRN PRN Reason: Nausea and Vomiting Simethicone (Simethicone 80 Mg Tab.Chew) 80 mg PO QIDWMHS PRN PRN Reason: flatulence Sodium Chloride (0.9 % Sodium Chloride Flush 3 Ml Syringe) 3 ml IVFLUSH QSHIFT [facility] Last Admin: 10/26/24 17:43 Dose: Not Given Documented By: LAKESHIA Non-Admin Reason: Previously Administered Trazodone HCl (Trazodone Hcl 50 Mg Tablet) 50 mg PO BEDTIME MRX1 PRN PRN Reason: Sleep Trazodone HCl (Trazodone Hcl 50 Mg Tablet) 50 mg PO BEDTIME [facility] Last Admin: 10/25/24 21:05 Dose: 50 mg Documented By: RAMIRO Labs 10/26/24 05:17 10/26/24 05:17 Labs: Laboratory Results - last 24 hr 10/25/24 10/26/24 10/26/24 23:52 04:34 05:17 MCV 95.0 MCH 31.9 MCHC 33.6 RDW 12.9 Plt Count 151 L MPV 10.8 Immature Gran % (Auto) 0.3 Neut % (Auto) 51.1 Lymph % (Auto) 37.3 [place]in % (Auto) 6.3 Eos % (Auto) 4.3 H Baso % (Auto) 0.7 Lymph # (Auto) 2.5 [place]in # (Auto) 0.4 Eos # (Auto) 0.3 Baso # (Auto) 0.1 Abs Immat Gran (auto) 0.02 Absolute Neuts (auto) 3.5 Absolute Nucleated RBC 0.000 Nucleated RBC % (auto) 0.0 Anion Gap 9 L Estim Creat Clear Calc TNP Estimated GFR > 60 POC Glucose 182 H 399 H* Random Glucose 443 H* Calcium 7.7 L 10/26/24 10/26/24 10/26/24 07:24 11:26 16:07 MCV MCH MCHC RDW Plt Count MPV Immature Gran % (Auto) Neut % (Auto) Lymph % (Auto) Hardin % (Auto) Eos % (Auto) Baso % (Auto) Lymph # (Auto) Hardin # (Auto) Eos # (Auto) Baso # (Auto) Abs Immat Gran (auto) Absolute Neuts (auto) Absolute Nucleated RBC Nucleated RBC % (auto) Anion Gap Estim Creat Clear Calc Estimated GFR POC Glucose 353 H* 241 H 240 H Random Glucose Calcium 10/26/24 19:39 MCV MCH MCHC RDW Plt Count MPV Immature Gran % (Auto) Neut % (Auto) Lymph % (Auto) [place] % (Auto) Eos % (Auto) Baso % (Auto) Lymph # (Auto) [place]in # (Auto) Eos # (Auto) Baso # (Auto) Abs Immat Gran (auto) Absolute Neuts (auto) Absolute Nucleated RBC Nucleated RBC % (auto) Anion Gap Estim Creat Clear Calc Estimated GFR POC Glucose 333 H Random Glucose Calcium Assessment and Plan (1) Hypoglycemia: Status: Acute (2) Type 1 diabetes: Status: Acute Plan pt is a 49-year-old female with a past medical history of type 1 diabetes, major depressive disorder, Suicide attempts times two requiring hospitalizations last in 2023, [facility], Hypothyroidism, GERD, PTSD, CAD, status post PA in 2018 with 2 drug-eluting stents in LAD, ischemic cardiomyopathy history of gastric bypass surgery, iron deficiency anemia admitted to for treatment of MDD, and PTSD, transferred from adult Psychiatry due to episode of severe hypoglycemia. hypoglycemia in the setting of type 1 diabetes - pt received too much insulin, 11U total from 21:31 to 23:54 with subsequent lethargy - unable to take PO glucose; IV placed on psych floor and pt given 1amp of dextrose with response; then transfered to [facility] tele - POC has since then been elevated in the 300-400s - pt's primary eap consultant Dr. Calle at [facility] was contacted, recommended Continue Lantus split dosing with 9 units at daily and 9 units at night No Sliding Scale; give lispro 6 units with each meal Give lispro 3 units with HS snack, give lispro 3 units prior to ECT treatments Goal is to keep blood sugars between 200-300 to avoid hypoglycemia - diabetic diet - pt to resume insulin pump upon discharge hypoxia - pt O2sat during rapid response was 91 - check CXR - O2 sat improved now mood disorder - evaluated by care team; does not need to go back to - psych consulted, are attempting to set up ECT at [facility]; possible transfer - continue psych meds: Hydroxyzine, lorazepam, trazodone, fluoxetine Hypothyroid - continue levothyroxine CAD/s/p PA with 2 drug-eluting stents - continue aspirin - follows with Cardiology at [facility] Full code VTE prophylaxis: Lovenox Patient require continued hospitalization for POC monitoring and safe disposition Quality Stroke Does the patient have a stroke diagnosis?: No VTE Prior VTE?: No VTE Risk Level:: Medical - moderate - high VTE Device Contraindication: Treatment Not Indicated VTE Drug Contraindication: N/A - Med Ordered
[2024-10-26 23:45] VITALS: BP 112/63; PULSE 71; RESP 20; TEMP 36.4; O2SAT 95
[2024-10-27 03:51] VITALS: BP 131/67; PULSE 66; RESP 20; TEMP 36.6; O2SAT 93
[2024-10-27 07:01] LABS: MANUAL DIFF FLAG NO
[2024-10-27 07:05] LABS: Hematocrit 32.7 % (37.0-47.0); Hemoglobin 11.2 g/dl (12.0-16.0); Imm Gran Abs Auto 0.05 X10*3/uL (0.00-0.03); Imm Gran Pct Auto 0.8 % (0.0-0.4); Lymphocytes Absolute Auto 2.1 X10*3/uL (1.2-4.9); Mean Corpuscular HGB Conc 34.3 g/dl (31.0-35.0); Mean Corpuscular Hemoglobin 32.3 pg (27.0-33.0); Mean Corpuscular Volume 94.2 fL (80.0-98.0); NRBC Abs Auto 0.000 X10*3/uL (0.0-0.012); NRBC Pct Auto 0.0 /100WBC (0.0-0.2); Platelet Count 163 X10*3/uL (160-400); Red Blood Count 3.47 X10*6/uL (4.20-5.50); White Blood Count 6.6 X10*3/uL (4.8-10.8)
[2024-10-27 07:24] LABS: Glucose, Whole Blood 494 mg/dL (60-115)
[2024-10-27 07:33] LABS: Anion Gap 10 (12-20); Blood Urea Nitrogen 17 mg/dL (9-16); Calcium 8.2 mg/dL (8.4-10.2); Carbon Dioxide 25 mmol/L (22-29); Chloride 102 mmol/L (96-108); Estimated Glomerular Filt Rate > 60; Potassium 4.2 mmol/L (3.3-5.1); Sodium 133 mmol/L (135-145)
[2024-10-27 07:53] VITALS: BP 118/58; PULSE 60; RESP 20; TEMP 36.6; O2SAT 95
[2024-10-27] MEDS: 0.9 % Sodium Chloride Flush 3 ML SYRINGE IVFLUSH (08:14)
[2024-10-27 09:20] LABS: Glucose, Whole Blood > 600 mg/dL (60-115)
[2024-10-27] MEDS: Insulin Glargine,Hum.rec.anlog 100 UNIT/ML 10 ML VIAL 9 UNIT SUBCUT ×2 (09:50→20:32)
[2024-10-27 11:20] LABS: Glucose, Whole Blood 294 mg/dL (60-115)
[2024-10-27 12:00] VITALS: BP 133/85; PULSE 71; RESP 20; TEMP 36.5; O2SAT 98
--- NOTE | 2024-10-27 13:20 | PM.EVENT ---
Documented by User: Kay Mejia, ОЛЬГА 10/27/24 16:46 Event Note Date of Service: 10/27/24 Event Note: Requested information sent to [place] [id number] on 10/25 and 10/26 for transfer for in pt ECT. [phone]/fax [phone]. [facility] [place] [facility] E[facility] clinic contacted on 10/26 and 10/27 to schedule appt post discharge for pt to meet with her provider group to continue OP ECT. Messages left x 2. No call back as yet [phone]. Received a call from [facility] [place] OP ECT Clinic. Dr. Snider will meet with pt on Wed. 11/01 1pm via telehealth on [place] to plan for OP ECT to resume. [phone]. Call from pt's , Adrian [phone] to get an update. Review of the week, pt's current request to discharge home and continue ECT as an out pt. He is in agreement with this plan-he will be at home with pt and pt's mom is close by and can be available to pt if needed. Adrian will tw pt and will drive out from [facility] or tomorrow to pick her up. Time Spent With Patient Time: Total time managing care of this patient today ____ minutes. Documented by User: Wilfredo Vasquez MD 10/27/24 23:16 Event Note Date of Service: 10/27/24
[2024-10-27 15:45] VITALS: BP 134/67; PULSE 79; RESP 20; TEMP 37.1; O2SAT 95
[2024-10-27 16:28] LABS: Glucose, Whole Blood 119 mg/dL (60-115)
--- NOTE | 2024-10-27 18:40 | P.DS_ITS ---
DS: Providers Provider Date of Service: 10/27/24 Date of admission: 10/25/24 03:17 Date of discharge: 10/27/24 Primary care physician: Unknown Physician Consults: 10/25/24 03:26 Consult to Psychiatry Routine Consulting Provider: Wilfredo Vasquez Reason for consultation: transferred from psych floor, continuation of care Has provider been notified: No 10/26/24 13:01 Inpt CARE Team Crisis Consult Stat Comment: Reason for consultation: Pt transfer fro psych; now wants to leave, very agitated; denies SI DS: Diagnosis Discharge Diagnosis (1) Hypoglycemia: Status: Acute (2) Type 1 diabetes: Status: Acute DS: Summary Hospital Course Hospital Course: From admission HPI: Date of Service: 10/25/24 Attending physician on admission: Kasi Shelton Chief Complaint: Hypoglycemia pt is a 49-year-old female with a past medical history of type 1 diabetes, major depressive disorder, Suicide attempts times two requiring hospitalizations last in 2023, [facility]TE[facility], Hypothyroidism, GERD, PTSD, CAD, status post [place] in 2018 with 2 drug-eluting stents in LAD, ischemic cardiomyopathy history of gastric bypass surgery, iron deficiency anemia admitted to for treatment of MDD, and PTSD, transferred from adult Psychiatry due to episode of severe hypoglycemia. rapid response called on pt as she was very lethargic, only respsonsive to loud verbal stimuli, progressed to only painful stimuli. pt received 6 units lispro at 18:18, 3 units of lispro at 21:31 with BS of 447 and an additional 8 units at 23:54 with BS of 345. pt's nurse went to check her BS and found her lethargic and difficult to arouse. rapid response was called. BS 37. pt had a similar episode last night with hypoglycemia, followed by hyperglycemia in the 600s without DKA after recieving an amp of glucose. they attempted juice and PO glucose however pt was not responsive enough to consume, therefore an IV was placed and she recieved IV dextrose 25g. pt to be transferred to the medical floor. pt's O2 sat was 91% during rapid response. will order chest xray once pt trasnferred to the floor. Hospital course Pt was initially admitted to the hospital on 10/14-10/25 to Psychiatric unit for suicidal ideation in the setting of increased anxiety and racing thoughts. Pt was seen and evaluated by Medicine multiple times as pt is a type 1 diabetic with brittle diabetes and labile blood sugars. Pt on an insulin pump at home, but was unable to use it on the unit as she has a hx of a vague suicide attempt apparently from insulin overdose. Pt was brought to the hospital floor after becoming hypoglycemic and unable to take oral glucose. Patient's sugars were difficult to control while in the hospital, though she was treated with the insulin plan as outlined by her granulator operator at [facility] Was seen and evaluated by care team who deemed that she no longer met criteria for inpatient psychiatric care. Pt wished to continue pursuing ECT, so Psychiatric team reached out to [facility] and arranged for pt to meet virtually with her psychiatrist Dr. Snider at [facility] on next Wednesday the at 13:00. Pt is ready to be discharged on her own accord and has made arrangements for her to come and pick her up from [place]. She should resume her insulin pump at home and all of her other home medications. Time Attestation Discharge Coordination Time (in mins): 37 Quality: Safe Use of Opioids Does Pt have an Active Cancer Diagnosis on the Problem List?: No Quality: Stroke Does the patient have a stroke diagnosis?: No Physical Exam Exam: Exam: General: AOx3, no acute distress Resp: CTA bilaterally CVS: S1, S2, RRR GI: +BS, NT, no distention Skin: Warm, dry Neuro: Cranial nerves II-XII grossly intact bilaterally. Motor grossly intact bilaterally Extremities: No edema Psych: Calm, cooperative. Not actively manic Vital Signs: Vital Signs: Last Vital Signs Temp 98.7 F 10/27/24 15:45 Pulse 79 10/27/24 15:45 Resp 20 10/27/24 15:45 BP 134/67 10/27/24 15:45 Pulse Ox 95 10/27/24 15:45 O2 Del Method Room Air 10/27/24 15:45 DS: Data Data Completed and Pending Labs on day of discharge: Laboratory Results - last 24 hr 10/26/24 10/27/24 10/27/24 19:39 06:46 07:21 WBC 6.6 RBC 3.47 L Hgb 11.2 L Hct 32.7 L MCV 94.2 MCH 32.3 MCHC 34.3 RDW 13.4 Plt Count 163 MPV 10.6 Immature Gran % (Auto) 0.8 H Neut % (Auto) 55.6 Lymph % (Auto) 31.1 [place]ke % (Auto) 7.1 Eos % (Auto) 4.6 H Baso % (Auto) 0.8 Lymph # (Auto) 2.1 [place] # (Auto) 0.5 Eos # (Auto) 0.3 Baso # (Auto) 0.1 Abs Immat Gran (auto) 0.05 H Absolute Neuts (auto) 3.7 Absolute Nucleated RBC 0.000 Nucleated RBC % (auto) 0.0 Sodium 133 L Potassium 4.2 Chloride 102 Carbon Dioxide 25 Anion Gap 10 L BUN 17 H Creatinine 0.88 Estim Creat Clear Calc TNP Estimated GFR > 60 POC Glucose 333 H 494 H* Random Glucose 636 H* Calcium 8.2 L D 10/27/24 10/27/24 10/27/24 09:12 09:40 11:09 WBC RBC Hgb Hct MCV MCH MCHC RDW Plt Count MPV Immature Gran % (Auto) Neut % (Auto) Lymph % (Auto) [place] % (Auto) Eos % (Auto) Baso % (Auto) Lymph # (Auto) [place] # (Auto) Eos # (Auto) Baso # (Auto) Abs Immat Gran (auto) Absolute Neuts (auto) Absolute Nucleated RBC Nucleated RBC % (auto) Sodium Potassium Chloride Carbon Dioxide Anion Gap BUN Creatinine Estim Creat Clear Calc Estimated GFR POC Glucose > 600 H* 294 H Random Glucose 597 H* Calcium 10/27/24 16:15 WBC RBC Hgb Hct MCV MCH MCHC RDW Plt Count MPV Immature Gran % (Auto) Neut % (Auto) Lymph % (Auto) [place] % (Auto) Eos % (Auto) Baso % (Auto) Lymph # (Auto) [place] # (Auto) Eos # (Auto) Baso # (Auto) Abs Immat Gran (auto) Absolute Neuts (auto) Absolute Nucleated RBC Nucleated RBC % (auto) Sodium Potassium Chloride Carbon Dioxide Anion Gap BUN Creatinine Estim Creat Clear Calc Estimated GFR POC Glucose 119 H Random Glucose Calcium Discharge Plan Discharge Anticipated Discharge Date/Time: 10/27/24 18:33 Patient Disposition: Home, Self-Care Discharge Diagnosis: Hypoglycemia Referrals: Physician,Unknown J [Primary Care Provider, Medical] - 1 Week Discharge Medications: Continued ibuprofen 800 mg Tablet 800 mg PO Q8H PRN (Reason: Pain, Mild) hydroxyzine HCl 25 mg Tablet 25 mg PO Q6H PRN (Reason: Anxiety) aspirin 81 mg Tablet 81 mg PO DAILY alum-mag hydroxide-simeth 200-200-20 mg/5 mL Suspension 30 ml PO Q6H PRN (Reason: Heartburn) Rx Instructions: administer between meals and at bedtime fluoxetine 40 mg capsule 40 mg PO DAILY trazodone 50 mg tablet 50 mg PO BEDTIME lorazepam 0.5 mg tablet 0.5 mg PO DAILY PRN (Reason: anxiety) levothyroxine 150 mcg tablet 150 mcg PO DAILY@0600 Repatha Syringe 140 mg/mL syringe 140 mg subcut Q2W insulin glargine [Lantus U-100 Insulin] 100 unit/mL Solution 18 unit subcut DAILY Qty: 0 0RF trazodone 50 mg Tablet 50 mg PO BEDTIME MRX1 PRN (Reason: Insomnia) Qty: 0 0RF olanzapine 10 mg Tablet 10 mg PO BEDTIME Qty: 0 0RF insulin lispro [Admelog U-100 Insulin lispro] 100 unit/mL Solution See Protocol subcut QIDACHS Qty: 0 0RF Protocol: Insulin Correction Scale Less than or equal to 110 ---- Give (units): 0 111 to 150 Give (units): 0 151 to 200 Give (units): 2 201 to 250 Give (units): 4 251 to 300 Give (units): 6 301 to 350 Give (units): 8 Greater than 350 Give (units): 10 Call MD if Blood Glucose > : 350 insulin lispro [Admelog U-100 Insulin lispro] 100 unit/mL Solution 6 unit subcut TIDAC Qty: 0 0RF insulin lispro [Admelog U-100 Insulin lispro] 100 unit/mL Solution 3 unit subcut BEDTIME Qty: 0 0RF simethicone 80 mg Tablet,Chewable 80 mg PO QIDWMHS PRN (Reason: flatulance) Qty: 0 0RF Discharge Orders: Discharge Order (Routine); Ordered 10/27/24 Ordered By: Erlin Leon Activity on Discharge: As tolerated Stand Alone Forms: Patient Portal Discharge page Print Language: Serbian Care Plan Goals: See below Health Concerns: Hypoglycemia Hyperglycemia Suicidal ideation Anxiety Racing thoughts Plan of Treatment: Dr. Snider of [facility] [place] [facility] [place] meet with you virtually on [place] on 1pm. At that time he will review your medical clearance and plan of care with you so you may scheudle your continuing out patient ECT with their service. [phone]. Assessment: You were initially admitted to the hospital on M[facility] Psychiatric unit for suicidal ideation secondary to increased anxiety and racing thoughts. You were treated there from 10/14-10/25 until you became hypoglycemic and brought to the hospital floor on 10/25 for management of your diabetes. You were seen and evaluated by care team who determined you no longer met criteria for inpatient psychiatric care. You will be discharged home and have an appointment to meet with your psychiatric provider at [facility] [place] for scheduling outpatient ECT. You should resume use of your insulin pump and all of your other home medications.
[2024-10-27 19:30] VITALS: BP 123/65; PULSE 68; RESP 20; TEMP 36.8; O2SAT 94
[2024-10-27 20:02] LABS: Glucose, Whole Blood 465 mg/dL (60-115)
[2024-10-27 20:02] LABS: Glucose, Whole Blood 453 mg/dL (60-115)
[2024-10-27 22:50] LABS: Glucose, Whole Blood 190 mg/dL (60-115)
--- NOTE | 2024-10-28 00:15 | PC.NURSE ---
At start of shift, patients POC in the 400s. Per MD, give scheduled Lispro and Lantus and recheck in 2 hrs. If POC less than 200 then OK to d/c. Recheck 2 hours after showed POC of 190. Patient d/c'd.
== END 2024-10-27 22:46 | disposition home or self-care (01) | DRG 638 ==
PROVIDERS: Nurse Practitioner Acute Care; Physician Assistant; Admitting Provider Psychiatry & Neurology Psychiatry; Visit Provider Student in an Organized Health Care Education/Training Program
DX: E10.649 Type 1 diabetes mellitus with hypoglycemia without coma (principal); F33.3 Major depressive disorder, recurrent, severe with psychotic symptoms; E03.9 Hypothyroidism, unspecified; I25.10 Atherosclerotic heart disease of native coronary artery without angina pectoris; Z91.51 Personal history of suicidal behavior; I25.5 Ischemic cardiomyopathy; Z95.5 Presence of coronary angioplasty implant and graft; Z98.84 Bariatric surgery status; R09.02 Hypoxemia; F43.10 Post-traumatic stress disorder, unspecified; Z87.891 Personal history of nicotine dependence; Z79.82 Long term (current) use of aspirin; Z79.890 Hormone replacement therapy; Z79.899 Other long term (current) drug therapy
CPT/HCPCS: 36415; 71045; 80048; 82947; 85025; J1650; J7120; S9485

== ENCOUNTER → 2024-10-25 03:17 | Outpatient (BNV) | payer OTHER, SELFPAY | PROVIDERS: Admitting Provider Psychiatry & Neurology Psychiatry; Visit Provider Nurse Practitioner Acute Care | DX: E16.2 Hypoglycemia, unspecified (principal); E10.9 Type 1 diabetes mellitus without complications | CPT/HCPCS: 99223; 99232; 99499 ==

== ENCOUNTER → 2024-10-25 03:17 | Outpatient (BNV) | payer OTHER, SELFPAY | PROVIDERS: Admitting Provider Psychiatry & Neurology Psychiatry; Visit Provider Clinical Nurse Specialist Psychiatric/Mental Health, Adult | DX: F33.3 Major depressive disorder, recurrent, severe with psychotic symptoms (principal); F43.11 Post-traumatic stress disorder, acute | CPT/HCPCS: 99222; 99499 ==